=== PATIENT | male | born 1960 | race Caucasian/White ===

== ENCOUNTER 2022-07-14 15:24 | Inpatient (IN) | payer OTHER, SELFPAY ==
[2022-07-14 15:25] VITALS: BP 150/120; PULSE 81; RESP 18; TEMP 36.6; O2SAT 95; BMI 42.6
[2022-07-14 17:04] VITALS: BP 150/109; PULSE 90; RESP 20; O2SAT 94
--- NOTE | 2022-07-14 17:08 | ED.RN ---
SOB WITH EXERTION AND LAYING FLAT CROW EDEMA FROM FEET UP THROUGH HIPS AND ABD DISTENTION.
--- NOTE | 2022-07-14 17:24 | EKG12_ITS ---
Test Reason : SOB Blood Pressure : / mmHG Vent. Rate : 078 BPM Atrial Rate : 078 BPM P-R Int : 128 ms QRS Dur : 134 ms QT Int : 398 ms P-R-T Axes : 017 042 147 degrees QTc Int : 453 ms Sinus rhythm with occasional Premature ventricular complexes Non-specific intra-ventricular conduction block Nonspecific T wave abnormality Abnormal ECG Confirmed by HUSSEIN HUBBARD, SHERIF ([id number]), acquisitions editor ESSIE WEINSTEIN ([id number]) on 07/16/2022 9:52:40 AM Referred By: CANDELARIA Confirmed By:WALESKA SAVAGE MD
--- NOTE | 2022-07-14 17:36 | EDS_ITS ---
HPI History of Present Illness Chief Complaint: Shortness of Breath Narrative Narrative: 62-year-old male presenting with shortness of breath with exertion, orthopnea, lower extremity swelling. He states he has no medical problems. He has not seen a doctor in 20 years. He denies having chest pain. He has not had fever, chills, cough. PFSH PFSH Medical History no medical history Home Medications NK 07/14/22 [History Last Taken Unknown] Allergy/AdvReac Type Severity Reaction Status Date / Time No Known Allergies Allergy Verified 07/14/22 15:27 Family History (Updated 07/14/22 @ 20:[address] Aren Valderrama MD) Other COPD (chronic obstructive pulmonary disease) Heart disease Surgical History no surgical history Social History Smoking Status: Former smoker ROS ROS ED Constitutional Constitutional ED: Denies chills or fever(s) Eyes Eyes: Denies change in vision or diplopia ENT ENT ED: Denies rhinorrhea or sore throat Cardiovascular Cardiovascular: Reports orthopnea; Denies chest pain or palpitations Respiratory/Chest Respiratory/Chest: Reports dyspnea, dyspnea on exertion and orthopnea Gastrointestinal Gastrointestinal: Reports other Details: Abdominal swelling ; Denies nausea or vomiting Genitourinary Genitourinary ED: Denies dysuria Musculoskeletal Musculoskeletal: Denies arthralgias Integumentary Denies abscess or Abrasions Neurologic Neurologic: Denies headache(s) or paresthesias Psychiatric Psychiatric: Denies anxiety or depression EXAM Physical Exam Const Vital Signs: 07/14/22 15:25 07/14/22 17:04 07/14/22 17:06 Temperature 98 F Temperature Source Temporal Pulse Rate 81 90 Respiratory Rate 18 20 H Respiratory Effort Normal Respiratory Pattern Normal Blood Pressure 150/120 H 150/109 H Blood Pressure Mean 130 122 Pulse Ox 95 94 Oxygen Delivery Method Room Air Room Air 07/14/22 17:24 07/14/22 19:04 Temperature Temperature Source Pulse Rate 70 Respiratory Rate 16 Respiratory Effort Respiratory Pattern Blood Pressure 159/113 H Blood Pressure Mean 128 Pulse Ox 97 Oxygen Delivery Method Room Air Positive well nourished and obese Nutritional Appearance: obese HEENT Reports moist mucous membranes atraumatic Eyes PERRL and EOMs intact bilaterally Neck no lymphadenopathy Resp normal respiratory effort and clear to auscultation bilaterally Auscultation: Negative for rales, rhonchi or wheezes Cardio regular rate and regular rhythm GI non-tender Back/Spine no CVA tenderness Extremity General Extremety ED: Yes edema General Extremity: edema Neuro oriented x3 and CN's II-XII intact bilaterally Sensorium / Orientation: alert Motor Exam: strength 5/5 throughout Psych mental status grossly normal Skin no wounds MDM MDM MDM Narrative Medical decision making narrative: 62-year-old male with shortness of breath, increased abdominal girth, lower extremity edema. Presentation is consistent with CHF. He does not have any chest pain. Blood work was obtained and his CBC is unremarkable. Renal function and electrolytes also unremarkable. High- sensitivity troponin 73. BNP 896.0. Chest x-ray on my interpretation consistent with CHF. EKG sinus rhythm at 78 bpm with PVCs. Patient was given 40 mg Lasix IV. I discussed with the hospitalist for admission. Impression: 1. New onset CHF Lab Data Labs: Laboratory Results - last 24 hr 07/14/22 07/14/22 07/14/22 17:15 17:15 17:15 WBC 9.1 RBC 4.99 Hgb 15.4 Hct 48.8 MCV 97.8 H MCH 30.9 MCHC 31.6 L RDW Std Deviation 50.2 H RDW Coeff of Paz 14.0 Plt Count 238 MPV 11.7 Immature Gran % (Auto) 0.200 Neut % (Auto) 62.5 Lymph % (Auto) 24.4 [place] % (Auto) 11.4 H Eos % (Auto) 1.1 Baso % (Auto) 0.4 Absolute Neuts (auto) 5.7 Absolute Lymphs (auto) 2.21 Nucleated RBC % 0 Sodium 142 Potassium 4.2 Chloride 109 H Carbon Dioxide 28.0 Anion Gap 5 BUN 22 H Creatinine 1.28 Estim Creat Clear Calc 62.58 Est GFR (MDRD) Af Amer 73 Est GFR (MDRD) Non-Af 61 BUN/Creatinine Ratio 17.2 Glucose 87 Calcium 9.8 Troponin I High Sens 73 B-Natriuretic Peptide 896.0 H Radiography Diagnostic Testing: Clinical Impression(s) from Imaging Studies Chest X-Ray 07/14/22 17:40 IMPRESSION: Lower lung edema or infiltrates. Cardiac enlargement. Electronically Signed: Steven Meek MD at 19:26 EDT , Discharge Plan Triage Chief Complaint: Shortness of Breath Other Complaint: Edema ED Provider: Marques Moise Dx/Rx/DC Orders Primary Care Provider: Care Physician,No Primary
--- NOTE | 2022-07-14 17:40 | RAD_ITS ---
STUDY: X-RAY CHEST REASON FOR EXAM: Male, 62 years old. Chest pain TECHNIQUE: Single AP portable view of the chest. COMPARISON: None. FINDINGS: There are monitoring devices. There are mild lower lung increased opacities. There is no demonstrated pleural abnormality. There is moderate cardiac enlargement. Normal mediastinum and jonas. Normal visualized pulmonary arteries. Normal visualized aortic arch and descending thoracic aorta. There are degenerative changes of the visualized thoracic spine. Normal visualized ribs, clavicles, and shoulders. There is no demonstrated abnormality of the visualized soft tissue structures of the upper abdomen. RAD/Chest 1 View (Portable) IMPRESSION: Lower lung edema or infiltrates. Cardiac enlargement. Electronically Signed: Steven Meek MD at 19:26 EDT ,
[2022-07-14] MEDS: Aspirin 81 MG TAB.CHEW 324 MG PO (17:46)
[2022-07-14 17:49] LABS: Absolute Lymphocyte Count 2.21 X10^3/uL (0.83-4.51); Absolute Neutrophil Count 5.7 X10^3/uL (2.0-7.7); Basophil# 0.04 X10^3/uL; Basophil% 0.4 % (0-1); Eosinophils% 1.1 % (0-5); Hematocrit 48.8 % (40-54); Hemoglobin 15.4 g/dL (13.0-16.5); Lymphocyte # 2.21 X10^3/ul (0.83-4.51); Lymphocyte % 24.4 % (19-41); Mean Corp Hgb Conc 31.6 g/dL (32-36); Mean Corpuscular Hgb 30.9 pg (27.0-32.0); Mean Corpuscular Volume 97.8 fL (80-94); Mean Platelet Vol. 11.7 fl (6.2-12.0); Monocyte# 1.03 X10^3/uL; Monocyte% 11.4 % (0-10); NRBC Flagged by Analyzer 0 % (0-5); Neutrophil # 5.67 X10^3/uL (2.7-7.7); Neutrophil % 62.5 % (47-70); Platelet Count 238 K/mm3 (150-450); RBC Distribution Width SD 50.2 fl (35.1-43.9); Red Blood Count 4.99 M/mm3 (4.6-6.2); White Blood Count 9.1 K/mm3 (4.4-11.0)
[2022-07-14 18:08] LABS: Anion Gap 5 (5-15); BUN 22 mg/dL (7-18); BUN/Creat Ratio 17.2 RATIO (10-20); Calcium,Total 9.8 mg/dL (8.5-10.1); Chloride 109 mmol/L (98-107); Creatinine, Serum 1.28 mg/dL (0.70-1.30); EST Glomerular Filtration Rate 61 mL/min (>60); Est Glom Filt Rate - Afr Amer 73 mL/min (>60); Estimated Creatinine Clearance 62.58 ml/min; Glucose 87 mg/dL (74-106); Potassium 4.2 mmol/L (3.5-5.1); Sodium Level 142 mmol/L (136-145); Troponin-I HS 73 pg/mL (3.0-78.0)
[2022-07-14 19:04] VITALS: BP 159/113; PULSE 70; RESP 16; O2SAT 97
--- NOTE | 2022-07-14 19:41 | PCM.HP.STD ---
HPI - General General Date of Admission: 07/14/22 Date of Service: 07/14/22 Chief Complaint: Dyspnea on exertion HPI Narrative SCARLETT LANDRY, is a 62 M with a significant history of previous alcoholism; former tobacco use and who saw a doctor bout 20 years ago presenting to the emergency department with 2 and half week history of progressively worsening dyspnea on exertion. Associated with symptom is orthopnea; paroxysmal nocturnal dyspnea; bilateral lower extremity swelling and lower abdominal swelling. Also he reports fatigue and decreased appetite. His legs have been so much swelling that he had trouble putting his work boots on. 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 [facility] Medical History no medical history no medical history Home Medications NK 07/14/22 [History Last Taken Unknown] Allergy/AdvReac Type Severity Reaction Status Date / Time No Known Allergies Allergy Verified 07/14/22 15:27 Family History (Updated 07/14/22 @ 20:[address] Aren Valderrama MD) Other COPD (chronic obstructive pulmonary disease) Heart disease Surgical History no surgical history no surgical history Social History Smoking Status: Former smoker ROS ROS Narrative Pertinent positives and pertinent negatives as noted in HPI. All other systems were reviewed and are negative Vital Signs Vital Signs Vital Signs: 07/14/22 15:25 07/14/22 17:04 07/14/22 17:06 Temperature 98 F Temperature Source Temporal Pulse Rate 81 90 Respiratory Rate 18 20 H Respiratory Effort Normal Respiratory Pattern Normal Blood Pressure 150/120 H 150/109 H Blood Pressure Mean 130 122 Pulse Ox 95 94 Oxygen Delivery Method Room Air Room Air 07/14/22 17:24 07/14/22 19:04 Temperature Temperature Source Pulse Rate 70 Respiratory Rate 16 Respiratory Effort Respiratory Pattern Blood Pressure 159/113 H Blood Pressure Mean 128 Pulse Ox 97 Oxygen Delivery Method Room Air Weight Weight: 134.745 kg Body Mass Index (BMI) 42.6 Physical Exam Narrative Physical exam: General: Well-nourished, well-developed. Head: Normocephalic, atraumatic, no tenderness Eyes: Vision is grossly intact. EOMI ENT, no trauma, moist mucous membranes, no rhinorrhea Neck: Nontender, No thyromegaly. CVS: Regular rate and rhythm. S1-S2 present. No murmur, gallop or rub. Respiratory : Diminished; bilaterally, chest wall nontender Abdomen: Soft, nontender, nondistended, normal bowel sounds. Edema of lower abdomen : Deferred Back: Nontender, no CVA tenderness, no midline spinal tenderness, deformities, step-offs Extremities: Nontender full range of motion, no trauma. Bilateral lower extremity edema 3+ Skin: Normal color, no trauma, abrasions Neuro: Alert, oriented, cranial nerves II through XII grossly intact. Psychiatry: Normal mood. Normal affect. Not depressed. Not anxious. Results Lab / Micro Data Result Diagrams: 07/14/22 17:15 07/14/22 17:15 Labs: Laboratory Results - last 24 hr 07/14/22 17:15: WBC 9.1, RBC 4.99, Hgb 15.4, Hct 48.8, MCV 97.8 H, MCH 30.9, MCHC 31.6 L, RDW Std Deviation 50.2 H, RDW Coeff of Paz 14.0, Plt Count 238, MPV 11.7, Immature Gran % (Auto) 0.200, Neut % (Auto) 62.5, Lymph % (Auto) 24.4, [place] % (Auto) 11.4 H, Eos % (Auto) 1.1, Baso % (Auto) 0.4, Absolute Neuts (auto) 5.7, Absolute Lymphs (auto) 2.21, Nucleated RBC % 0 07/14/22 17:15: Sodium 142, Potassium 4.2, Chloride 109 H, Carbon Dioxide 28.0, Anion Gap 5, BUN 22 H, Creatinine 1.28, Estim Creat Clear Calc 62.58, Est GFR (MDRD) Af Amer 73, Est GFR (MDRD) Non-Af 61, BUN/Creatinine Ratio 17.2, Glucose 87, Calcium 9.8, Troponin I High Sens 73 07/14/22 17:15: B-Natriuretic Peptide 896.0 H Radiology Impression Chest X-Ray 07/14/22 17:40 IMPRESSION: Lower lung edema or infiltrates. Cardiac enlargement. Electronically Signed: Steven Meek MD at 19:26 EDT Reading Location ID and State: [facility] / [place] , Service support , Assessment & Plan Assessment/Plan (1) Congestive heart failure (CHF): (2) Elevated blood pressure reading: (3) Morbid obesity due to excess calories: PLAN: Plan Acute heart failure New onset Place on monitored bed on PCU Weight on admission to the floor; and then daily Strict I&O's Chest x-ray was visualized and independently interpreted I agree with radiology interpretation of cardiomegaly and bilateral pulmonary infiltrates. EKG independently reviewed confirms sinus rhythm with PVCs Emergency department labs reviewed showed elevated BNP of 896 Discussed with ED doctor will give Lasix 40 mg IV push. Lasix 40 mg twice daily ordered. Supplement potassium. Transthoracic echocardiogram to evaluate left ventricular wall motion and systolic function. Monitor electrolytes and renal function; and liver biochemistry. Check a TSH and lipid panel. Trend blood pressure Cruz wrap to bilateral lower extremities; elevate bilateral lower extremity. Fluid restriction of 1500 mls daily Cardiac diet Elevated blood pressure without diagnosis of hypertension Patient blood pressure is elevated. However patient has not seen a doctor within 20 years. Will start patient on low-dose lisinopril. Will trend blood pressures. Morbid Obesity : BMI:42.6 kg/m?. Complicates care. Lifestyle modification recommended. Charges/Coding Visit Charges Inpatient E&M: 95992 Init Hosp L3
[2022-07-14 19:55] VITALS: BP 160/90; PULSE 77; RESP 18; TEMP 36.8; O2SAT 98
[2022-07-14] MEDS: Furosemide 40 MG/4 ML Vial IV (19:59)
--- NOTE | 2022-07-14 21:37 | ECHOCS_ITS ---
Reason For Study: CHF Procedure This was a 2D Doppler, Color Flow transthoracic echocardiogram. The study was technically difficult. Contrast injection was performed. Exam performed portable in patient room. Left Ventricle Mildly dilated left ventricle. The estimated ejection fraction is 15-20 %. There is severe global hypokinesis of the left ventricle. Right Ventricle Normal RV size. Normal systolic function. Atria The left atrium is mildly enlarged. The right atrium is mildly enlarged. No doppler evidence for ASD. Mitral Valve There is no mitral valve stenosis. Mild (1+) mitral valve insufficiency. Tricuspid Valve There is no tricuspid stenosis. Trivial tricuspid valve insufficiency. Pulmonary artery systolic pressure is 45 mmHg. Aortic Valve Trisinus/trileaflet aortic valve. There is no aortic stenosis. No aortic valve insufficiency. Pulmonic Valve There is no pulmonic valvular stenosis. No pulmonic valve insufficiency. Great Vessels Normal aortic root. Pericardium/Pleural No pericardial effusion. Medication Diluted definity 2ml given slow IV push to enhance endocardial definition. MMode/2D Measurements & Calculations LVIDd: 6.3 cm IVSd: 0.86 cm Ao root diam: 4.0 cm LVIDs: 5.7 cm LVPWd: 1.3 cm LA dimension: 4.8 cm RVDd: 5.1 cm FS: 9.5 % LAV(MOD-bp): 120.9 ml LVAd ap4: 54.5 cm2 SV(MOD-sp4): 56.8 ml LAV(MOD-bp) Indexed: 49.3 ml/m2 LVLd ap4: 10.1 cm LAV(MOD-sp2): 111.7 ml EDV(MOD-sp4): 242.5 ml LAV(MOD-sp4): 112.2 ml EDV(sp4-el): 248.8 ml LVAs ap4: 44.9 cm2 LVLs ap4: 9.2 cm ESV(MOD-sp4): 185.6 ml ESV(sp4-el): 185.2 ml EF(MOD-sp4): 23.4 % EF(sp4-el): 25.6 % SV(sp4-el): 63.6 ml LA A4 area: 32.6 cm2 RA A4 area: 27.0 cm2 Time Measurements MV dec time: 0.19 sec Doppler Measurements & Calculations MV E max joseph: 98.0 cm/sec Lat Peak E' Joseph: 13.7 cm/sec Med Peak E' Joseph: 6.6 cm/sec MV A max joseph: 34.1 cm/sec E/E' lat: 7.2 E/E' med: 14.9 MV E/A: 2.9 MV V2 max: 109.0 cm/sec MV P1/2t max joseph: 111.3 cm/sec Ao V2 max: 96.9 cm/sec MV max P.8 mmHg MV P1/2t: 82.3 msec Ao max P.8 mmHg MV V2 mean: 51.3 cm/sec MV mean P.4 mmHg MV dec slope: 396.4 cm/sec2 MV V2 VTI: 26.2 cm MVA(P1/2t): 2.7 cm2 LV V1 max: 93.0 cm/sec PA V2 max: 66.5 cm/sec LV V1 max P.5 mmHg PI dec slope: 381.6 cm/sec2 TR max joseph: 307.8 cm/sec TR max P.9 mmHg ECHO/Echo Complete W/ Contrast Interpretation Summary The estimated ejection fraction is 15-20 %. There is severe global hypokinesis of the left ventricle. The left atrium is mildly enlarged. The right atrium is mildly enlarged. Mild (1+) mitral valve insufficiency. Ordering Physician: Aren Valderrama Referring Physician: Katie PCP Performed By: Emerson Sow RCS
[2022-07-14 21:39] VITALS: BMI 41.9
[2022-07-14 21:44] VITALS: BP 137/92; PULSE 75; RESP 18; TEMP 36.4; O2SAT 98
[2022-07-14] MEDS: Enoxaparin 40 MG/0.4 ML Syringe SC (21:57)
[2022-07-14] MEDS: Lisinopril 5 MG Tablet PO (21:57)
[2022-07-14 23:10] LABS: Troponin-I HS 70 pg/mL (3.0-78.0)
[2022-07-15 01:30] LABS: Troponin-I HS 70 pg/mL (3.0-78.0)
[2022-07-15 03:45] VITALS: BP 137/95; PULSE 69; RESP 20; TEMP 36.6; O2SAT 97
[2022-07-15 05:01] VITALS: BMI 41.9
[2022-07-15 06:18] LABS: Absolute Lymphocyte Count 1.94 X10^3/uL (0.83-4.51); Absolute Neutrophil Count 5.4 X10^3/uL (2.0-7.7); Basophil# 0.03 X10^3/uL; Basophil% 0.4 % (0-1); Eosinophil# 0.16 X10^3/uL; Eosinophils% 1.9 % (0-5); Hematocrit 45.4 % (40-54); Hemoglobin 13.9 g/dL (13.0-16.5); Lymphocyte # 1.94 X10^3/ul (0.83-4.51); Lymphocyte % 22.7 % (19-41); Mean Corp Hgb Conc 30.6 g/dL (32-36); Mean Corpuscular Hgb 30.2 pg (27.0-32.0); Mean Corpuscular Volume 98.7 fL (80-94); Mean Platelet Vol. 11.7 fl (6.2-12.0); Monocyte# 1.03 X10^3/uL; Monocyte% 12.1 % (0-10); NRBC Flagged by Analyzer 0 % (0-5); Neutrophil # 5.35 X10^3/uL (2.7-7.7); Neutrophil % 62.5 % (47-70); Platelet Count 214 K/mm3 (150-450); White Blood Count 8.5 K/mm3 (4.4-11.0)
[2022-07-15 07:22] LABS: AST(SGOT) 33 U/L (15-37); Alanine Aminotransfer ALT/SGPT 34 U/L (16-61); Albumin, Serum 3.3 g/dL (3.2-5.0); Alkaline Phosphatase 66 U/L (45-117); Anion Gap 3 (5-15); BUN 20 mg/dL (7-18); BUN/Creat Ratio 15.9 RATIO (10-20); Calcium,Total 8.9 mg/dL (8.5-10.1); Chloride 108 mmol/L (98-107); Cholesterol 88 mg/dL (200); Creatinine, Serum 1.26 mg/dL (0.70-1.30); EST Glomerular Filtration Rate 62 mL/min (>60); Est Glom Filt Rate - Afr Amer 75 mL/min (>60); Estimated Creatinine Clearance 63.57 ml/min; Globulin 3.3 g/dL (2.2-4.2); Glucose 90 mg/dL (74-106); High Density Lipoprotein 27 mg/dL; Potassium 3.8 mmol/L (3.5-5.1); Protein, Total 6.6 g/dL (6.4-8.2); Sodium Level 141 mmol/L (136-145); Thyroid Stim Hormone (TSH) 2.51 uIU/mL (0.358-3.74); Triglycerides 65 mg/dL; Very Low Density Lipoprotein 13 mg/dL (5-40)
--- NOTE | 2022-07-15 07:53 | PN.HOSP_ITS ---
Reason for Visit Reason for Visit: Diagnoses Morbid (severe) obesity due to excess calories (07/14/22) Heart failure, unspecified (07/14/22) Elevated blood-pressure reading, without diagnosis of hypertension (07/14/22) Subjective Subjective Patient is a 62-year-old gentleman with no chronic medical problems presented with 2-week history of progressive shortness of breath with bilateral pedal edema and assessment of new onset congestive heart failure made admitted to a monitored bed for further management Objective Data Objective Data Vital Signs: Vital Signs Temp Pulse Resp BP Pulse Ox O2 Del Method 97.8 F 69 20 H 137/95 H 97 Room Air 07/15/22 03:45 07/15/22 03:45 07/15/22 03:45 07/15/22 03:45 07/15/22 03:45 07/15/22 03:45 Oxygen Delivery Method Room Air Weight: 132.5 kg Body Mass Index (BMI) 41.9 Lab / Micro Data Result Diagrams: 07/15/22 05:42 07/15/22 05:42 Labs: Laboratory Results - last 24 hr 07/14/22 17:15: WBC 9.1, RBC 4.99, Hgb 15.4, Hct 48.8, MCV 97.8 H, MCH 30.9, MCHC 31.6 L, RDW Std Deviation 50.2 H, RDW Coeff of Paz 14.0, Plt Count 238, MPV 11.7, Immature Gran % (Auto) 0.200, Neut % (Auto) 62.5, Lymph % (Auto) 24.4, [place] % (Auto) 11.4 H, Eos % (Auto) 1.1, Baso % (Auto) 0.4, Absolute Neuts (auto) 5.7, Absolute Lymphs (auto) 2.21, Nucleated RBC % 0 07/14/22 17:15: Sodium 142, Potassium 4.2, Chloride 109 H, Carbon Dioxide 28.0, Anion Gap 5, BUN 22 H, Creatinine 1.28, Estim Creat Clear Calc 62.58, Est GFR (MDRD) Af Amer 73, Est GFR (MDRD) Non-Af 61, BUN/Creatinine Ratio 17.2, Glucose 87, Calcium 9.8, Troponin I High Sens 73 07/14/22 17:15: B-Natriuretic Peptide 896.0 H 07/14/22 22:41: Troponin I High Sens 70 07/15/22 00:43: Troponin I High Sens 70 07/15/22 05:42: WBC 8.5, RBC 4.60, Hgb 13.9, Hct 45.4, MCV 98.7 H, MCH 30.2, MCHC 30.6 L, RDW Std Deviation 51.0 H, RDW Coeff of Paz 14.0, Plt Count 214, MPV 11.7, Immature Gran % (Auto) 0.400, Neut % (Auto) 62.5, Lymph % (Auto) 22.7, [place] % (Auto) 12.1 H, Eos % (Auto) 1.9, Baso % (Auto) 0.4, Absolute Neuts (auto) 5.4, Absolute Lymphs (auto) 1.94, Nucleated RBC % 0 07/15/22 05:42: Sodium 141, Potassium 3.8, Chloride 108 H, Carbon Dioxide 30.0, Anion Gap 3 L, BUN 20 H, Creatinine 1.26, Estim Creat Clear Calc 63.57, Est GFR (MDRD) Af Amer 75, Est GFR (MDRD) Non-Af 62, BUN/Creatinine Ratio 15.9, Glucose 90, Calcium 8.9, Total Bilirubin 1.20 H, AST 33, ALT 34, Alkaline Phosphatase 66, Total Protein 6.6, Albumin 3.3, Globulin 3.3, Albumin/Globulin Ratio 1.0, Triglycerides 65, Cholesterol 88, LDL Cholesterol 48, VLDL Cholesterol 13, HDL Cholesterol 27 L, TSH 2.51 Radiography Diagnostic Testing: Radiology Impression Chest X-Ray 07/14/22 17:40 IMPRESSION: Lower lung edema or infiltrates. Cardiac enlargement. Electronically Signed: Steven Meek MD at 19:26 EDT , Physical Exam Narrative GENERAL: cooperative HEENT: Atraumatic; normocephalic EYES; Anicteric, Normal Conjunctiva NECK; supple, normal thyroid, RESPIRATORY: Diminished to auscultation CARDIOVASCULAR: Regular S1 S2, GI: soft, normoactive bowel sounds, : No Renal angle tenderness; EXTREMITIES: edema, no clubbing, MUSCULOSKELETAL: no muscle wasting NEURO: Awake; no lateralizing signs. SKIN: No Rash PSYCH; Flat affect Assessment & Plan Assessment/Plan (1) Congestive heart failure (CHF): (2) Elevated blood pressure reading: (3) Morbid obesity due to excess calories: PLAN: Plan Patient is a 62-year-old gentleman with no chronic medical problems presented with 2-week history of progressive shortness of breath with bilateral pedal edema and assessment of new onset congestive heart failure made admitted to a monitored bed for further management 1. New onset acute congestive heart failure (unspecified at this point). 2D echo has been ordered to assess EF. Patient placed on strict input and output, daily weight, IV diuretics as well as fluid restriction in addition to low-sodium diet. Patient response to therapy being monitored with daily weights as well as input and output 2. Elevated blood pressure ? Patient does not have history of hypertension given his presentation patient was started on lisinopril 3. Class III obesity with BMI of 42 ? Weight loss advised 4. DVT prophylaxis - On enoxaparin Time spent in the patient's overall evaluation,decision-making process, review of diagnostic data, adjustment of management, discussion with other providers, nursing nursing and ancillary staff involved in patient's care documentation, 55 Minutes Charges/Coding Visit Charges Inpatient E&M: 89132 [facility] L3
[2022-07-15 08:38] VITALS: O2SAT 94
[2022-07-15] MEDS: Enoxaparin 40 MG/0.4 ML Syringe SC ×2 (09:12→21:41)
[2022-07-15] MEDS: 0.9% Saline Lock 10 ML Syringe IV ×3 (09:12→21:48)
[2022-07-15] MEDS: Lisinopril 5 MG Tablet PO (09:12)
[2022-07-15] MEDS: Potassium Chloride Oral Tablet 20 MEQ PO (09:12)
[2022-07-15] MEDS: Furosemide 40 MG/4 ML Vial IV ×3 (09:12→21:41)
[2022-07-15 09:45] VITALS: BP 146/101; PULSE 76; RESP 18; TEMP 36.6; O2SAT 100
--- NOTE | 2022-07-15 11:15 | CASEMGMT ---
RN GERARDO Face to Face with patient for initial transition planning/care coordination assessment. RN CM introduced self and role at [facility]. Patient lying in bed, alert and oriented, ex at bedside. Patient willing to participate in assessment and is able to answer all questions appropriately. Care providers, pharmacy, and demographics verified. Patient wishes to discharge home, denies need for home health at this time. Patient states he has no further needs or concerns at this time. CM to follow for discharge planning needs that may arise. PCP: No PCP, PCP list and [facility] info provided to patient. Specialists: none Preferred Pharmacy: [facility] Insurance: None Prescription Benefit: none Living Will/HPOA: none LNOK: ex Living Arrangements: Patient lives with ex in a mobile home with 2 steps with railing to enter. Patient states he is independent at home. Transportation: self, ex DME/HHC: Patient has access to walker, wheelchair, and shower chair, at home. No previous HHC or SNF Disposition Plan: Patient to discharge home with family support and follow-up plans in place. Ashlee MEYER, RN, CM
[2022-07-15 15:45] VITALS: BP 131/103; PULSE 72; RESP 18; TEMP 36.4; O2SAT 99
[2022-07-15 21:35] VITALS: BP 131/95; PULSE 70; RESP 18; TEMP 36.3; O2SAT 96
[2022-07-16 03:10] VITALS: BP 132/100; PULSE 70; RESP 18; TEMP 35.9; O2SAT 97
[2022-07-16 05:16] LABS: Absolute Lymphocyte Count 2.05 X10^3/uL (0.83-4.51); Absolute Neutrophil Count 5.3 X10^3/uL (2.0-7.7); Basophil# 0.04 X10^3/uL; Basophil% 0.5 % (0-1); Eosinophil# 0.18 X10^3/uL; Eosinophils% 2.1 % (0-5); Hematocrit 46.8 % (40-54); Hemoglobin 14.4 g/dL (13.0-16.5); Lymphocyte # 2.05 X10^3/ul (0.83-4.51); Lymphocyte % 23.7 % (19-41); Mean Corp Hgb Conc 30.8 g/dL (32-36); Mean Corpuscular Hgb 29.9 pg (27.0-32.0); Mean Corpuscular Volume 97.3 fL (80-94); Mean Platelet Vol. 11.3 fl (6.2-12.0); Monocyte# 1.09 X10^3/uL; Monocyte% 12.6 % (0-10); NRBC Flagged by Analyzer 0 % (0-5); Neutrophil # 5.28 X10^3/uL (2.7-7.7); Neutrophil % 60.9 % (47-70); Platelet Count 215 K/mm3 (150-450); RBC Distribution Width CV 13.7 % (11.6-14.6); RBC Distribution Width SD 49.5 fl (35.1-43.9); Red Blood Count 4.81 M/mm3 (4.6-6.2); White Blood Count 8.7 K/mm3 (4.4-11.0)
[2022-07-16] MEDS: Furosemide 40 MG/4 ML Vial IV ×2 (05:28→13:35)
[2022-07-16] MEDS: 0.9% Saline Lock 10 ML Syringe IV (05:28)
[2022-07-16 05:42] LABS: Anion Gap 4 (5-15); BUN 25 mg/dL (7-18); BUN/Creat Ratio 17.6 RATIO (10-20); Calcium,Total 9.5 mg/dL (8.5-10.1); Chloride 105 mmol/L (98-107); Creatinine, Serum 1.42 mg/dL (0.70-1.30); EST Glomerular Filtration Rate 54 mL/min (>60); Est Glom Filt Rate - Afr Amer 65 mL/min (>60); Estimated Creatinine Clearance 56.41 ml/min; Glucose 90 mg/dL (74-106); Magnesium 2.2 mg/dL (1.6-2.6); Phosphorus 3.8 mg/dL (2.5-4.9); Potassium 3.4 mmol/L (3.5-5.1); Sodium Level 140 mmol/L (136-145)
[2022-07-16 06:00] VITALS: BMI 39.6
--- NOTE | 2022-07-16 07:40 | PN.HOSP_ITS ---
Reason for Visit Reason for Visit: Diagnoses Morbid (severe) obesity due to excess calories (07/14/22) Heart failure, unspecified (07/14/22) Elevated blood-pressure reading, without diagnosis of hypertension (07/14/22) Subjective Subjective Patient 2D echo demonstrated EF of 15 to 20%. Consult subsequently placed to cardiology Objective Data Objective Data Vital Signs: Vital Signs Temp Pulse Resp BP Pulse Ox O2 Del Method 96.7 F L 70 18 132/100 H 97 Room Air 07/16/22 03:10 07/16/22 03:10 07/16/22 03:10 07/16/22 03:10 07/16/22 03:10 07/16/22 03:10 Oxygen Delivery Method Room Air Weight: 125.3 kg Body Mass Index (BMI) 39.6 Intake & Output: Intake and Output for Last 24 Hours 07/14/22 07/15/22 07/16/22 23:59 23:59 23:59 Intake Total 240 / 240 Balance 240 / 240 Lab / Micro Data Result Diagrams: 07/16/22 04:53 07/16/22 04:53 Labs: Laboratory Results - last 24 hr 07/16/22 04:53: WBC 8.7, RBC 4.81, Hgb 14.4, Hct 46.8, MCV 97.3 H, MCH 29.9, MCHC 30.8 L, RDW Std Deviation 49.5 H, RDW Coeff of Paz 13.7, Plt Count 215, MPV 11.3, Immature Gran % (Auto) 0.200, Neut % (Auto) 60.9, Lymph % (Auto) 23.7, [place] % (Auto) 12.6 H, Eos % (Auto) 2.1, Baso % (Auto) 0.5, Absolute Neuts (auto) 5.3, Absolute Lymphs (auto) 2.05, Nucleated RBC % 0 07/16/22 04:53: Sodium 140, Potassium 3.4 L, Chloride 105, Carbon Dioxide 31.0, Anion Gap 4 L, BUN 25 H, Creatinine 1.42 H, Estim Creat Clear Calc 56.41, Est GFR (MDRD) Af Amer 65, Est GFR (MDRD) Non-Af 54 L, BUN/Creatinine Ratio 17.6, Glucose 90, Calcium 9.5, Phosphorus 3.8, Magnesium 2.2 Radiography Diagnostic Testing: Radiology Impression Echocardiogram 07/14/22 21:37 Interpretation Summary The estimated ejection fraction is 15-20 %. There is severe global hypokinesis of the left ventricle. The left atrium is mildly enlarged. The right atrium is mildly enlarged. Mild (1+) mitral valve insufficiency. Ordering Physician: Aren Valderrama Referring Physician: Katie PCP Performed By: Emerson Sow RCS Physical Exam Narrative GENERAL: cooperative HEENT: Atraumatic; normocephalic EYES; Anicteric, Normal Conjunctiva NECK; supple, normal thyroid, RESPIRATORY: Diminished to auscultation CARDIOVASCULAR: Regular S1 S2, GI: soft, normoactive bowel sounds, : No Renal angle tenderness; EXTREMITIES: edema, no clubbing, MUSCULOSKELETAL: no muscle wasting NEURO: Awake; no lateralizing signs. SKIN: No Rash PSYCH; Flat affect Assessment & Plan Assessment/Plan (1) Congestive heart failure (CHF): (2) Elevated blood pressure reading: (3) Morbid obesity due to excess calories: PLAN: Plan Patient is a 62-year-old gentleman with no chronic medical problems presented with 2-week history of progressive shortness of breath with bilateral pedal edema and assessment of new onset congestive heart failure made admitted to a monitored bed for further management 1. Acute congestive heart failure with decreased ejection fraction 2D echo has been ordered to assess EF. Patient placed on strict input and output, daily weight, IV diuretics as well as fluid restriction in addition to low-sodium diet. Patient response to therapy being monitored with daily weights as well as input and output ?07/16/2022. 2D echo obtained on 07/15/2022 is as below. The estimated ejection fraction is 15-20 %. There is severe global hypokinesis of the left ventricle. The left atrium is mildly enlarged. The right atrium is mildly enlarged. Mild (1+) mitral valve insufficiency. ?Based on patient's significant cardiomyopathy consultation was placed to cardiology to evaluate for possible coronary artery disease. Case was discussed with Dr. Miller with cardiology 2. Elevated blood pressure ? Patient does not have history of hypertension given his presentation patient was started on lisinopril 3. Class III obesity with BMI of 42 ? Weight loss advised 4. Hypokalemia -Corrected per protocol, repeat potassium levels ordered for monitoring 5. Impaired kidney function ? Following patient diuresis adjusted patient Lasix dose 6. DVT prophylaxis - On enoxaparin Time spent in the patient's overall evaluation,decision-making process, review of diagnostic data, adjustment of management, discussion with other providers, nursing nursing and ancillary staff involved in patient's care documentation, 55 Minutes Charges/Coding Visit Charges Inpatient E&M: 52243 [facility] L3
[2022-07-16] MEDS: Lisinopril 5 MG Tablet PO (07:56)
[2022-07-16] MEDS: Enoxaparin 40 MG/0.4 ML Syringe SC (07:56)
[2022-07-16] MEDS: Potassium Chloride Oral Tablet 20 MEQ PO (07:56)
[2022-07-16 08:00] VITALS: O2SAT 97
[2022-07-16 09:10] VITALS: BP 132/90; PULSE 70; RESP 18; TEMP 36.4; O2SAT 98
--- NOTE | 2022-07-16 10:07 | CON.PCM.CA_ITS ---
Assessment & Plan Assessment/Plan (1) Congestive heart failure (CHF): QUALIFIERS: Heart failure type: systolic Heart failure chronicity: acute Qualified Code(s): I50.21 - Acute systolic (congestive) heart failure PLAN: Functional class III. Agree with diuresis. Titrate EMIL inhibitors upward as tolerated. Start on SGLT2 inhibitor. Introduce low-dose beta-blockers. 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 However will need to rule out coronary artery disease. Will consider coronary angiography versus stress test as outpatient. (2) Hypertension: PLAN: Increase EMIL inhibitor's as tolerated. Introduce low-dose beta-blockers. (3) History of ETOH abuse: PLAN: Abstinent for the last 1 month. Encouraged to continue to stay abstinent. HPI Consult Data Date of Consult: 07/16/22 HPI Narrative Reason for Consultation: Congestive heart failure HPI Narrative: The patient presented to the hospital with complaints of a 2-week history of increasing shortness of breath and ankle edema. He also complained of increasing fatigue. No chest pain. An echocardiogram was done for the patient which showed ejection fraction of 15 to 20% with global hypokinesis. Patient denies any previous history of heart disease. He has a history of EtOH abuse. Per him, he quit drinking about a month ago. PENDING SALE TO [facility] Medical History no medical history Home Medications NK 07/14/22 [History Last Taken Unknown] Allergy/AdvReac Type Severity Reaction Status Date / Time No Known Allergies Allergy Verified 07/14/22 15:27 Family History (Updated 07/14/22 @ 20:[address] Aren Valderrama MD) Other COPD (chronic obstructive pulmonary disease) Heart disease Surgical History no surgical history Social History Smoking Status: Former smoker Physical Exam Narrative Comfortable. No apparent distress. Positive jugular venous distention. Heart sounds 1 and 2 noted. Positive S3. No murmurs. Chest examination shows bibasilar crepitations. Abdomen soft. Alert oriented x3. 3+ bilateral lower extremity edema is noted. Risk Stratification Risk Stratification Applicable: No Objective Data Vital Signs: Vital Signs Temp Pulse Resp BP Pulse Ox O2 Del Method 97.5 F L 70 18 132/90 H 98 Room Air 07/16/22 09:10 07/16/22 09:10 07/16/22 09:10 07/16/22 09:10 07/16/22 09:10 07/16/22 09:10 Oxygen Delivery Method Room Air Weight: 276 lb 3.827 oz Body Mass Index (BMI) 39.6 Intake & Output: Intake and Output for Last 24 Hours 07/14/22 07/15/22 07/16/22 23:59 23:59 23:59 Intake Total 240 / 240 Balance 240 / 240 Lab / Micro Data Result Diagrams: 07/16/22 04:53 07/16/22 04:53 Labs: Laboratory Results - last 24 hr 07/16/22 04:53: WBC 8.7, RBC 4.81, Hgb 14.4, Hct 46.8, MCV 97.3 H, MCH 29.9, MCHC 30.8 L, RDW Std Deviation 49.5 H, RDW Coeff of Paz 13.7, Plt Count 215, MPV 11.3, Immature Gran % (Auto) 0.200, Neut % (Auto) 60.9, Lymph % (Auto) 23.7, [place] % (Auto) 12.6 H, Eos % (Auto) 2.1, Baso % (Auto) 0.5, Absolute Neuts (auto) 5.3, Absolute Lymphs (auto) 2.05, Nucleated RBC % 0 07/16/22 04:53: Sodium 140, Potassium 3.4 L, Chloride 105, Carbon Dioxide 31.0, Anion Gap 4 L, BUN 25 H, Creatinine 1.42 H, Estim Creat Clear Calc 56.41, Est GFR (MDRD) Af Amer 65, Est GFR (MDRD) Non-Af 54 L, BUN/Creatinine Ratio 17.6, Glucose 90, Calcium 9.5, Phosphorus 3.8, Magnesium 2.2 Rhythm Strip Rhythm Strip: Sinus Rhythm Cardiology Labs/Tests 07/16/22 04:53: WBC 8.7, RBC 4.81, Hgb 14.4, Hct 46.8, MCV 97.3 H, MCH 29.9, MCHC 30.8 L, Plt Count 215, MPV 11.3, Immature Gran % (Auto) 0.200, Neut % (Auto) 60.9, Lymph % (Auto) 23.7, [place] % (Auto) 12.6 H, Eos % (Auto) 2.1, Baso % (Auto) 0.5, Absolute Neuts (auto) 5.3, Nucleated RBC % 0 07/16/22 04:53: Sodium 140, Potassium 3.4 L, Chloride 105, Carbon Dioxide 31.0, Anion Gap 4 L, BUN 25 H, Creatinine 1.42 H, Est GFR (MDRD) Af Amer 65, Est GFR (MDRD) Non-Af 54 L, BUN/Creatinine Ratio 17.6, Glucose 90, Calcium 9.5, Phosphorus 3.8, Magnesium 2.2 Rhythm: EKG: Normal sinus rhythm with nonspecific intraventricular conduction delay ECHO: Global hypokinesis of the left ventricle. Ejection fraction 15 to 20%. Mild mitral valve regurgitation. Stress Test: Cardiac Cath: PCI: CT Surgery: Holter monitor: EPS: PPM: CXR: Chest CT Scan: Radiography Diagnostic Testing: Radiology Impression Echocardiogram 07/14/22 21:37 Interpretation Summary The estimated ejection fraction is 15-20 %. There is severe global hypokinesis of the left ventricle. The left atrium is mildly enlarged. The right atrium is mildly enlarged. Mild (1+) mitral valve insufficiency. Ordering Physician: Aren Valderrama Referring Physician: Katie PCP Performed By: Emerson Sow RCS
[2022-07-16] MEDS: Carvedilol 3.125 MG TABLET PO (11:39)
[2022-07-16] MEDS: Empagliflozin 10 MG Tablet PO (11:39)
--- NOTE | 2022-07-16 13:59 | DS.PCM_ITS ---
Providers Date of Admission: 07/14/22 Date of Discharge: 07/16/22 Primary Care Physician: Katie Primary Care Phys Consultations 07/16/22 07:39 Consult: Cardiology Routine Consulting Provider: Tim Miller Reason for Consult: New Onset CHF EMERGENT Consult: No MD Notified: Yes Date Notified: 07/16/22 Time Notified: 07:39 Method of Notification: Verbal Reason For Visit: ACUTE HEART FAILURE Diagnosis Discharge Diagnosis (1) Congestive heart failure (CHF): Status: Acute Code(s): I50.9 - Heart failure, unspecified Qualifiers: Heart failure type: systolic Heart failure chronicity: acute Qualified Code(s): I50.21 - Acute systolic (congestive) heart failure (2) Elevated blood pressure reading: Status: Acute Code(s): R03.0 - Elevated blood-pressure reading, without diagnosis of hypertension (3) Morbid obesity due to excess calories: Status: Acute Code(s): E66.01 - Morbid (severe) obesity due to excess calories Plan Patient is a 62-year-old gentleman with no chronic medical problems presented with 2-week history of progressive shortness of breath with bilateral pedal edema and assessment of new onset congestive heart failure made admitted to a monitored bed for further management 1. Acute congestive heart failure with decreased ejection fraction 2D echo has been ordered to assess EF. Patient placed on strict input and output, daily weight, IV diuretics as well as fluid restriction in addition to low-sodium diet. Patient response to therapy being monitored with daily weights as well as input and output ?07/16/2022. 2D echo obtained on 07/15/2022 is as below. The estimated ejection fraction is 15-20 %. There is severe global hypokinesis of the left ventricle. The left atrium is mildly enlarged. The right atrium is m ildly enlarged. Mild (1+) mitral valve insufficiency. ?Based on patient's significant cardiomyopathy consultation was placed to cardiology to evaluate for possible coronary artery disease. Case was discussed with Dr. Miller with cardiology 2. Elevated blood pressure ? Patient does not have history of hypertension given his presentation patient was started on lisinopril 3. Class III obesity with BMI of 42 ? Weight loss advised 4. Hypokalemia -Corrected per protocol, repeat potassium levels ordered for monitoring 5. Impaired kidney function ? Following patient diuresis adjusted patient Lasix dose 6. DVT prophylaxis - On enoxaparin Time spent in the patient's overall evaluation,decision-making process, review of diagnostic data, adjustment of management, discussion with other providers, nursing nursing and ancillary staff involved in patient's care documentation, 55 Minutes Medications at Discharge Home Medications carvedilol 3.125 mg tablet 3.125 mg PO BID 60 days #120 tabs 07/16/22 empagliflozin 10 mg tablet (Jardiance) 10 mg PO DAILY 60 days #60 tabs 07/16/22 furosemide 40 mg tablet (Lasix) 40 mg PO DAILY #60 tabs 07/16/22 lisinopril 5 mg tablet 5 mg PO BID 60 days #120 tabs 07/16/22 potassium chloride 20 mEq tablet,extended release(part/cryst) (Klor-Con M) 20 meq PO DAILYCM 60 days #60 tabs 07/16/22 Hospital Course Summary of Care Provided Minutes Spent on Discharge: 55 Physical Exam Narrative GENERAL: cooperative HEENT: Atraumatic; normocephalic EYES; Anicteric, Normal Conjunctiva NECK; supple, normal thyroid, RESPIRATORY: Diminished to auscultation CARDIOVASCULAR: Regular S1 S2, GI: soft, normoactive bowel sounds, : No Renal angle tenderness; EXTREMITIES: edema, no clubbing, MUSCULOSKELETAL: no muscle wasting NEURO: Awake; no lateralizing signs. SKIN: No Rash PSYCH; Flat affect Weight / BMI Weight Weight: 125.3 kg Body Mass Index (BMI) 39.6 ABG / Lab / Microbiology Data Result Diagrams: 07/16/22 04:53 07/16/22 04:53 Laboratory: Laboratory Results - last 24 hr 07/16/22 04:53: WBC 8.7, RBC 4.81, Hgb 14.4, Hct 46.8, MCV 97.3 H, MCH 29.9, MCHC 30.8 L, RDW Std Deviation 49.5 H, RDW Coeff of Paz 13.7, Plt Count 215, MPV 11.3, Immature Gran % (Auto) 0.200, Neut % (Auto) 60.9, Lymph % (Auto) 23.7, [place] % (Auto) 12.6 H, Eos % (Auto) 2.1, Baso % (Auto) 0.5, Absolute Neuts (auto) 5.3, Absolute Lymphs (auto) 2.05, Nucleated RBC % 0 07/16/22 04:53: Sodium 140, Potassium 3.4 L, Chloride 105, Carbon Dioxide 31.0, Anion Gap 4 L, BUN 25 H, Creatinine 1.42 H, Estim Creat Clear Calc 56.41, Est GFR (MDRD) Af Amer 65, Est GFR (MDRD) Non-Af 54 L, BUN/Creatinine Ratio 17.6, Glucose 90, Calcium 9.5, Phosphorus 3.8, Magnesium 2.2 Radiography Diagnostic Testing: Radiology Impression Echocardiogram 07/14/22 21:37 Interpretation Summary The estimated ejection fraction is 15-20 %. There is severe global hypokinesis of the left ventricle. The left atrium is mildly enlarged. The right atrium is mildly enlarged. Mild (1+) mitral valve insufficiency. Ordering Physician: Aren Valderrama Referring Physician: No PCP Performed By: Emerson Sow RCS D/C Instructions Discharge Diet: 8 Cup Fluid Restriction and 2000 mg Sodium Diet Discharge Activity: Return to Normal Activity Call your doctor if you observe: Fever of 101 or Higher, Shortness of breath, Fainting spells and Chest pain Meaningful Use Info Meaningful Use Diagnoses (Choose all that apply): CHF CHF EMIL/ARB ordered at discharge?: Yes Documented LVEF (%): 20 Discharge Plan Admission Admit Date/Time: 07/14/22 19:47 Attending Provider: Khai Ro Primary Care Provider: Care Physician,No Primary Consulting Providers: Aren Valderrama ; Tim Miller Discharge Orders/Prescriptions Prescriptions: New carvedilol 3.125 mg Tablet 3.125 mg PO BID 60 Days Qty: 120 0RF potassium chloride [Klor-Con M20] 20 mEq Tablet,Er Particles/Crystals 20 meq PO DAILYCM 60 Days Qty: 60 0RF lisinopril 5 mg Tablet 5 mg PO BID 60 Days Qty: 120 0RF Jardiance 10 mg Tablet 10 mg PO DAILY 60 Days Qty: 60 0RF furosemide [Lasix] 40 mg tablet 40 mg PO DAILY Qty: 60 0RF Referrals / Follow Up: Tim Miller MD [Med Staff - Active Staff] - Within 2 Weeks Care Physician,No Primary [Primary Care Provider] - NOT,DEFINED [Non-Staff] - Disposition Disposition (needs filled in before D/C Order can be placed): Home, Self Care Charges/Coding Visit Charges Inpatient E&M: 88562 Disch Hosp >30min
--- NOTE | 2022-07-16 14:18 | CASEMGMT ---
Patient is being discharged on Jardiance. Patient is self pay. ERASMO CARRILLO called [facility] Retail pharmacy and cost for Jardiance is $1456.86. Per Jardiance website, patient does not qualify for savings card. Remaining prescriptions cost $73.10. ERASMO CARRILLO updated patient regarding cost of prescription and he cannot afford Jardiance script and will not fill. Patient states he is able to afford remain scripts. ERASMO CARRILLO update hospitalist and refrigeration operator regarding cost of Jardiance and patient refusing to fill.
[2022-07-16 15:44] VITALS: BP 131/90; PULSE 77; RESP 18; TEMP 36.4; O2SAT 97
== END 2022-07-16 04:15 | disposition home or self-care (01) | DRG 292 ==
LOC: ED 19:45 → PCU 20:02
PROVIDERS: Admitting Provider Hospitalist; Emergency Provider Student in an Organized Health Care Education/Training Program; Visit Provider Internal Medicine
DX: I50.21 Acute systolic (congestive) heart failure (principal); Z68.41 Body mass index [BMI] 40.0-44.9, adult; I42.6 Alcoholic cardiomyopathy; E66.01 Morbid (severe) obesity due to excess calories; F10.21 Alcohol dependence, in remission; E87.6 Hypokalemia; R03.0 Elevated blood-pressure reading, without diagnosis of hypertension; Z79.899 Other long term (current) drug therapy; Z87.891 Personal history of nicotine dependence; Z82.49 Family history of ischemic heart disease and other diseases of the circulatory system
CPT/HCPCS: 36415; 71045; 80048; 80053; 80061; 83735; 83880; 84100; 84443; 84484; 85025; 93005; 93306; 99285; Q9957; A4216; C8929; J1940

== ENCOUNTER → 2022-08-07 | Outpatient (CLI) | payer SELFPAY ==
--- NOTE | 2022-08-11 08:33 | STRESSREP_ITS ---
Stress Test Report Date: 08/07/2022 Procedure: Pharmacologic stress nuclear imaging study Indications: Cardiomyopathy Consent: Per the patient Procedure: The patient underwent pharmacologic (Regadenoson 0.4mg ) evaluation with a peak heart rate of 71 beats per minute (44%predicted maximal heart rate) and a peak blood pressure of 106/70 mmHg. The baseline ECG demonstrated normal sinus rhythm with left bundle branch block. The peak pharmacologic ECG demonstrated no diagnostic changes secondary to baseline abnormalities. Rare PVC was noted. There was no complaint of chest discomfort during pharmacologic infusion or recovery. The patient was injected with 14.7 millicuries of technetium 99m Cardiolite and subsequently rest SPECT Cardiolite nuclear imaging was obtained in the horizontal long, vertical long, and short axis views. The patient underwent pharmacologic (Regadenoson) evaluation. The patient was injected with 44.4 millicuries of technetium 99m Cardiolite and subsequently stress SPECT Cardiolite nuclear imaging was obtained in the horizontal long, vertical long, and short axis views. A gated Cardiolite study at peak stress was obtained. The examination was stopped secondary to completion of protocol. Rest and stress SPECT Cardiolite nuclear imaging status post realignment, normalization, and attenuation correction demonstrate small area of decreased perfusion at the apex which is minimally worse post Lexiscan. The reported LVEF is 32%. The left ventricle appears dilated. Impression: 1. Pharmacologic (Regadenoson) evaluation 2. Peak pharmacologic ECG with no diagnostic changes. 3. Rare PVC. 5. Small area of perfusion abnormality at the apex which is minimally worse post Lexiscan. No significant reversible perfusion defects. 6. The gated Cardiolite study reports an LVEF of 32%. This note was generated with Zdorovioation software. It may contain incorrect words, spelling, and punctuation that were not noted in checking the note before signing.
== END | disposition home or self-care (01) ==
LOC: CVS 06:36
PROVIDERS: Referring Provider Nurse Practitioner Family; Visit Provider Nurse Practitioner Family
DX: I11.0 Hypertensive heart disease with heart failure (principal); I50.21 Acute systolic (congestive) heart failure
CPT/HCPCS: 78452; 93017; A9500; A4216; J2785

== ENCOUNTER → 2022-10-29 | Outpatient (CLI) | payer SELFPAY ==
--- NOTE | 2022-10-29 09:16 | ECHOLC_ITS ---
Reason For Study: CHF Procedure This was a limited 2D transthoracic echocardiogram. Contrast injection was performed. Exam performed in department. Left Ventricle Mildly dilated left ventricle. Mild concentric left ventricular hypertrophy. The left ventricular ejection fraction is 50 %. Unable to assess diastolic function based on available data. Right Ventricle Normal right ventricle. Atria The left atrium is severely enlarged. The right atrium is severely enlarged. Mitral Valve The mitral valve is structurally normal. No prolapse or stenosis seen. Tricuspid Valve Normal tricuspid valve. Aortic Valve Normal aortic valve. Pulmonic Valve The pulmonic valve is not well visualized. Great Vessels Mildly dilated aortic root. Pericardium/Pleural No pericardial effusion. Medication 22 gauge I.V. with prn adaptor inserted into right arm. Diluted definity 1.5ml given slow IV push to enhance endocardial definition. MMode/2D Measurements & Calculations LVIDd: 5.9 cm IVSd: 1.2 cm Ao root diam: 3.9 cm LVIDs: 4.9 cm LVPWd: 1.2 cm RVDd: 3.5 cm FS: 16.2 % LAV(MOD-bp): 80.0 ml LVAd ap4: 39.0 cm2 LVAd ap2: 37.1 cm2 LAV(MOD-bp) Indexed: 34.5 ml/m2 LVLd ap4: 8.7 cm LVLd ap2: 10.2 cm LAV(MOD-sp2): 74.9 ml EDV(MOD-sp4): 144.3 ml EDV(MOD-sp2): 114.3 ml LAV(MOD-sp4): 85.6 ml EDV(sp4-el): 148.2 ml EDV(sp2-el): 114.6 ml LVAs ap4: 26.0 cm2 LVAs ap2: 22.9 cm2 LVLs ap4: 7.8 cm LVLs ap2: 7.7 cm ESV(MOD-sp4): 72.8 ml ESV(MOD-sp2): 57.8 ml ESV(sp4-el): 73.6 ml ESV(sp2-el): 57.8 ml EF(MOD-sp4): 49.6 % EF(MOD-sp2): 49.4 % EF(sp4-el): 50.3 % SV(MOD-sp4): 71.5 ml SV(MOD-sp2): 56.5 ml SV(sp4-el): 74.6 ml LA A4 area: 26.4 cm2 LA dimension(2D): 4.4 cm RA A4 area: 26.4 cm2 ECHO/Echo Limited w/Contrast Interpretation Summary Mildly dilated left ventricle. Mild concentric left ventricular hypertrophy. The left ventricular ejection fraction is 50 %. The left atrium is severely enlarged. The right atrium is severely enlarged. Ordering Physician: Benito Haywood Referring Physician: MORENO PCP Performed By: Vita Olmos RDCS, RVT
== END | disposition home or self-care (01) ==
LOC: CVS 08:58
PROVIDERS: Referring Provider Nurse Practitioner Family; Visit Provider Nurse Practitioner Family
DX: I11.0 Hypertensive heart disease with heart failure (principal); I50.21 Acute systolic (congestive) heart failure
CPT/HCPCS: 93308; Q9957; A4216; C8924

== ENCOUNTER 2024-12-24 16:41 | Inpatient (IN) | payer OTHER, SELFPAY ==
[2024-12-24] VITALS (14 sets, daily range): BP systolic 104–146; BP diastolic 80–115; PULSE 82–123; RESP 16–24; TEMP 36.6–37.1; O2SAT 96–100; BMI 38.8
--- NOTE | 2024-12-24 17:28 | EKG12_ITS ---
Test Reason : CP Blood Pressure : */* mmHG Vent. Rate : 123 BPM Atrial Rate : 246 BPM P-R Int : * ms QRS Dur : 144 ms QT Int : 432 ms P-R-T Axes : -85 0 235 degrees QTcB Int : 618 ms Atrial flutter with 2:1 A-V conduction Left bundle branch block Abnormal ECG Confirmed by Joseph Johnson ([id number]), offline editor JUAN TOSCANO ([id number]) on 12/26/2024 1:17:30 PM Referred By: TA/PÉREZ Confirmed By: Joseph Johnson
--- NOTE | 2024-12-24 17:29 | ED.VIS.CHEST ---
HPI History of Present Illness Chief Complaint: Chest Pain Informant: patient and spouse/S.O. Onset/Context/Timing Onset: Days (Exertional indigestion and dyspnea for the past 2 to 3 days) and Weeks (Pedal edema past week) Activity at onset: sudden (Exertional indigestion with dyspnea) and gradual (Swelling of his lower extremities) Timing: Intermittent Quality: Positive for Indigestion Location: Substernal (Inferior substernal region/left parasternal region) Current Severity: Gone Maximum Severity: Moderate Worsened By: Exertion; Not Worsened By Movement of Arm, Movement of Torso, Eating, Palpation, Breathing or Coughing Relieved By: Rest (Resolved after 5 to 10 minutes of rest) Associated Symptoms: Positive for Dyspnea; Negative for Nausea, Vomiting, Diaphoresis, Cough, Fever, Lightheadedness, Acid Reflux or Palpitations Narrative Narrative: Patient is a poor informant. He states he is seen by Dr. Miller. on. He admits to congestive heart failure and hypertension. He does not know why he is on carvedilol. His last echo was performed October 29, 2022. Patient had mild dilated left ventricle with mild concentric left ventricular hypertrophy and an estimated ejection fraction of 50%. The left atrium was severely enlarged and the right atrium is enlarged. Patient had a pharmacologic stress test performed August 11, 2022. Revealed small area of perfusion abnormality at the apex which is minimally worse post Lexiscan. There was no significant reversible perfusion defect noted. The gated Cardiolite study revealed an LVEF of 32%. Patient presents because of swelling, dyspnea and indigestion with exertion. He states if he goes up an incline he gets indigestion and he localizes it to the inferior sternal left parasternal region. It does not radiate. It is associated with shortness of breath. He states he has trouble getting his breath. His symptoms resolved after 5 to 10 minutes of rest. He has no known history of coronary disease. He and his states he has never had a cardiac catheterization. He has no history of atrial fibrillation or atrial flutter. Patient denies history of peptic ulcers, GERD, hiatal hernia. Patient denies intolerance to greasy or fried foods. Patient does have stable two-pillow orthopnea. He is also concerned because of increased swelling of his lower extremities. He is on furosemide. He reports compliance. Prior Similar Symptoms: No Recent Illness/Hospitalization: No CVD Risk Factors: Positive for Hypertension; Negative for Diabetes, Hypercholesterolemia or Family History 1' </=55 PE Risk Factors: Negative for Recent Travel/Surgery, Recent Immobilization, Prior DVT or PE, Cancer or OCP + Smoking + >/=35 TAD Risk Factors: Positive for Hypertension; Negative for Marfan's Syndrome or Family History PFSH PFSH Medical History Essential hypertension History of ETOH abuse Elevated blood pressure reading Home Medications ?Medication ?Instructions ?Recorded ?Last Taken ?Type potassium chloride 20 mEq See Rx Instructions .Route 05/11/23 12/24/24 Rx tablet,extended .COMPLEX #90 tabs release(part/cryst) (Klor-Con M) lisinopril 10 mg tablet 10 mg PO BID #180 tabs 08/24/23 12/24/24 Rx carvedilol 6.25 mg tablet 6.25 mg PO BID #180 TABLETS 08/23/24 12/24/24 Rx furosemide 40 mg tablet (Lasix) 40 mg PO DAILY #90 tabs 08/29/24 12/24/24 Rx Allergy/AdvReac Type Severity Reaction Status Date / Time No Known Allergies Allergy Verified 12/24/24 16:42 Family History Other COPD (chronic obstructive pulmonary disease) Heart disease Social History (Updated 12/24/24 @ 17:[address] Yuniel Hoffman MD) household members: spouse Smoking Status: Former smoker how long ago did patient quit smokin years ago alcohol intake: never substance use type: marijuana caffeine: No (None in the last couple of weeks) ROS ROS ED Constitutional Constitutional ED: Denies chills, fever(s), subjective or sweats Eyes Eyes: Reports none ENT ENT ED: Denies rhinorrhea or sore throat Cardiovascular Cardiovascular: Reports as per HPI and orthopnea; Denies paroxysmal nocturnal dyspnea Respiratory/Chest Respiratory/Chest: Reports dyspnea on exertion and orthopnea; Denies cough, dyspnea or paroxysmal nocturnal dyspnea Gastrointestinal Gastrointestinal: Denies abdominal pain, melena, nausea or vomiting Musculoskeletal Musculoskeletal: Denies arthralgias, back pain, myalgias or neck pain Integumentary Denies rash Neurologic Neurologic: Denies weakness Hematologic/Lymphatic Hematologic/Lymphatic: Denies easy bleeding or easy bruising EXAM Physical Exam Const Vital Signs: 12/24/24 16:41 12/24/24 17:03 12/24/24 17:49 Temperature 98.0 F Temperature Source Oral Pulse Rate 120 H 122 H Respiratory Rate 22 H 16 Respiratory Effort Normal Respiratory Depth Normal Respiratory Pattern Normal Blood Pressure 146/114 H 130/103 H Blood Pressure Mean 124 112 Pulse Ox 98 98 Oxygen Delivery Method Room Air Room Air Room Air 12/24/24 17:50 12/24/24 17:50 Temperature 98.8 F Temperature Source Oral Pulse Rate 122 H Respiratory Rate 16 Respiratory Effort Respiratory Depth Respiratory Pattern Blood Pressure 129/108 H Blood Pressure Mean 115 Pulse Ox 98 Oxygen Delivery Method Room Air Room Air Positive well nourished and well developed Constitutional Narrative: BMI is 38.8. He appears in no distress. Blood pressure is elevated 146/114 and heart rate is 120. General Appearance ED: well developed; Negative for pallor HEENT Reports moist mucous membranes normocephalic and atraumatic Eyes PERRL and EOMs intact bilaterally General Eye ED: Negative for pale conjunctiva or scleral icterus Neck no lymphadenopathy, supple and no JVD Chest Wall inspection of chest normal and palpation of chest normal Resp normal respiratory effort and No clear to auscultation bilaterally Auscultation: rales bilateral base Cardio regular rhythm, S1 normal heart sound, S2 normal heart sound and no murmurs Rate: tachycardic Peripheral Pulses: pulses 2+ throughout GI normal to inspection, nondistended, normoactive bowel sounds, soft to palpation, non-tender, non-distended and no masses; Negative for hepatosplenomegaly Back/Spine Back/Spine Narrative: Inspection of the back is normal. Extremity General Extremety ED: Yes edema General Extremity: edema bilateral lower extremity Details: moderate Neuro oriented x3 and CN's II-XII intact bilaterally Sensorium / Orientation: awake and alert Psych mental status grossly normal Skin no rashes or lesions noted and no wounds General Skin Exam: Negative for jaundice or pallor MDM MDM MDM Narrative Medical decision making narrative: Patient is EKG reveals possible atypical a flutter with 2-1 block with a rate of 123. Patient's history is concerning for new onset exertional angina. Will obtain cardiac markers. CBC to assess H&H and white count. BMP to assess renal function. Because of the bibasilar rales chest x-ray was obtained to assess for evidence of heart failure. Also obtained a BNP. History & Record Review Additional record(s) reviewed:: Prior outpatient record (Documented HPI narrative) and Prior labs Lab Data Attestation: I reviewed the patient's lab results. Lab results narrative: CBC is unremarkable. Basic metabolic panel is elevated BUN/creatinine of 27 and 1.37. First troponin is elevated at 60. BNP is elevated at 7117. Labs: Laboratory Results - last 24 hr 12/24/24 17:06 WBC 9.9 RBC 4.81 Hgb 15.1 Hct 45.8 MCV 95.2 H MCH 31.4 MCHC 33.0 RDW Std Deviation 49.7 H RDW Coeff of Paz 14.2 Plt Count 253 MPV 11.3 Immature Gran % (Auto) 0.300 Neut % (Auto) 60.1 Lymph % (Auto) 27.8 [place] % (Auto) 10.6 H Eos % (Auto) 0.8 Baso % (Auto) 0.4 Absolute Neuts (auto) 6.0 Absolute Lymphs (auto) 2.76 Nucleated RBC % 0 Sodium 141 Potassium 4.6 Chloride 106 Carbon Dioxide 23.4 Anion Gap 12 BUN 27 H Creatinine 1.37 H Estim Creat Clear Calc 72.52 Est GFR (MDRD) Non-Af 58 L BUN/Creatinine Ratio 19.4 Glucose 109 H Calcium 10.1 Troponin T High Sens 60 H* NT pro BNP II 7117 H Radiography Chest X-Ray - ED: 2 View, Read by ED Physician (There are some minimal chronic changes. There is mild cardiomegaly. Cardiac silhouette is normal. Lung parenchyma reveals no infiltrate, cephalization, curly B-lines and there is no effusion. Thoracic spine reveals degenerative changes. There is no acute osseous abnormalities noted. Independen), Unchanged, Mediastinum and No Acute Disease Diagnostic Testing: Clinical Impression(s) from Imaging Studies Chest X-Ray 12/24/24 17:55 IMPRESSION: Stable cardiomegaly with mild pulmonary vascular congestion. Reading Location: [facility] EKG Initial EKG: Attestation: I personally reviewed and interpreted this EKG as follows: Interpretation: - (Wide-complex tachycardia. Rate is 123. This may represent an atypical atrial flutter with 2-1 block. There is evidence of left bundle branch block. QRS durations 144 ms. QRS duration 432 ms. [place] is normal.) Management Discussion w/another healthcare provider: Hospitalist (Dr. Chong the admitting hospitalist was made aware where patient's history physical and discussion with cardiology. Full admit PCU) and [employer] Sales Representative (Spoke with police sergeant precinct on-call Dr. Colmenares. He was informed of patient's history, physical and concerns. Agrees with anticoagulation. He will see patient in the morning. Patient be admitted to hospital) Treatment and Re-Evaluation :: Aspirin, heparin, beta-yosef Critical Care Time Critical Care Time: Yes Critical care time (excluding procedures): 30-74 minutes (32), Including time spent: (History, physical, documentation, review of prior records, independent or potation laboratory results, treatment for ACS and CHF), Discussing w/Patient &/or Family/Gravel Inspector, Discussing w/Consultants (Cardiology and hospitalist) and Arranging Admission or Transfer Discharge Plan Dx/Rx/DC Orders Clinical Impression: ACS (acute coronary syndrome), Essential hypertension, Acute exacerbation of CHF (congestive heart failure), Sinus tachycardia, Adult BMI 38.0-38.9 kg/sq m Disposition Disposition: Acute Care Hospital [facility]
--- NOTE | 2024-12-24 17:55 | RAD_ITS ---
PROCEDURE: CHEST PA AND LATERAL 12/24/2024 REASON FOR EXAM: CHEST PAIN TECHNIQUE: Procedure Code: RADCXR Modality: DX Procedure: CHEST PA AND LATERAL COMPARISON: Chest x-ray 07/14/2022 FINDINGS: Hardware: None. Heart: The heart is enlarged but stable. Mediastinum: The mediastinal contour is unremarkable. Lungs: Mild pulmonary vascular congestion. No focal consolidation, pneumothorax, or effusion. Bones: The bones are unremarkable. RAD/Chest PA and Lateral IMPRESSION: Stable cardiomegaly with mild pulmonary vascular congestion. Reading [facility]
[2024-12-24 18:06] LABS: Hematocrit 45.8 % (40-54); Hemoglobin 15.1 g/dL (13.0-16.5); Immature Granulocytes Count 0.030 X10^3/uL (0.0-0.0); Mean Corp Hgb Conc 33.0 g/dL (32-36); Mean Corpuscular Volume 95.2 fL (80-94); Mean Platelet Vol. 11.3 fl (6.2-12.0); NRBC Flagged by Analyzer 0 % (0-5); Platelet Count 253 K/mm3 (150-450); RBC Distribution Width CV 14.2 % (11.6-14.6); RBC Distribution Width SD 49.7 fl (35.1-43.9); Red Blood Count 4.81 M/mm3 (4.6-6.2); White Blood Count 9.9 K/mm3 (4.4-11.0)
--- OUTSIDE RECORDS SUMMARY | 2024-12-24 18:16 | XMS RPT_ITS | CCD ---
Author Organization [facility] Care Team Providers Care Fluid Pump Operator Name Role Phone Unavailable Primary Care Provider Dr. Marques Morris Emergency Provider Care Physician, No Primary Primary Care Provider Unavailable Dr. Aren Valderrama Admit Provider Dr. Aren Valderrama Other Provider [phone] Khai Ro Attending Provider Unavailable Dr. Khai Ro Other Provider Unavailable Dr. Whitley Dobson Attending Provider Dr. Tim Miller Other Provider Dr. Tim Miller Attending Provider Care Physician, No Primary Referring Provider Un available Roof TRIBAL JUDGE, TRIBAL JUDGE-C Benito Johnson Attending Provider Roof TRIBAL JUDGE, TRIBAL JUDGE-C Benito Johnson Referring Provider Roof TRIBAL JUDGE, TRIBAL JUDGE-C Benito Johnson Other Provider Roof TRIBAL JUDGE, Benito Johnson Attending Unavailable Care Physician, No Primary Primary Care Unava ilable Roof TRIBAL JUDGE, Benito Johnson Referring Unavailable Roof TRIBAL JUDGE, Benito Johnson Attending Unavailable Care Physician, No Primary Primary Care Unava ilable Roof TRIBAL JUDGE, Benito Johnson Consulting Unavailable Roof TRIBAL JUDGE, Benito Johnson Referring Unavailable Care Physician, No Primary Primary Care Unava ilable Tim Miller Attending Unavailable Care Physician, No Primary Primary Care Unava ilable Aren Valderrama Admitting Unavailable Aren Valderrama Attending Unavailable Aren Valderrama Consulting Unavailable Khai Ro Attending Unavailable Khai Ro Consulting Unavailable Roof TRIBAL JUDGE, Benito Johnson Referring Unavailable Roof TRIBAL JUDGE, Benito Johnson Attending Unavailable Care Physician, No Primary Primary Care Unava ilable Care Physician, No Primary Primary Care Unava ilable AgyeAren huang Consulting Unavailable Agyepong, Aren Admitting Unavailable Khai Ro Attending Unavailable Paul, Tim Consulting Unavailable PaulTim dang Attending Unavailable PaulTim Consulting Unavailable Roof Benito MCMILLAN Attending Unavailable Care Physician, No Primary Primary Care Unava ilable Care Physician, No Primary Referring Unava ilable Care Physician, No Primary Primary Care Unava ilable Whitley Dobson Attending Unavailabl e Roof TRIBAL JUDGEBenito Referring Unavailable Care Physician, No Primary Primary Care Unava ilable PaulTim Attending Unavailable Paul, Tim Attending Unavailable Care Physician, No Primary Primary Care Unava ilable Roof TRIBAL JUDGE, ESTEFANY Johnson Referring Provider Medications Current Medications Medication Drug Class(es) Dates Sig (Normalized) Sig (Original) carvedilol 6.25 mg oral tablet (6 sources) alpha-Adrenergic Jaquelin, beta-Adrenergic Jaquelin Start: 07-30-2022 End: 08-21-2022 take 6.25 mg by mouth twice daily Carvedilol Active 6.25 MG PO TWICE A DAY 180 60 August 21, 2022 10:10am Start: 07-16-2022 End: 07-30-2022 take 3.125 mg by mouth twice daily Carvedilol Discontinued 3.125 MG PO TWICE A DAY 120 60 July 16, 2022 12:00am July 30, 2022 10:24am furosemide 40 mg oral tablet (4 sources) Loop Diuretic Start: 07-16-2022 End: 09-10-2022 take 1 tablet by mouth once daily Furosemide (Lasix) 40 mg tablet Active 40 MG PO DAILY 90 September 10, 2022 8:37am lisinopril 10 mg oral tablet (5 sources) Angiotensin Converting Enzyme Inhibitor Start: 08-26-2022 End: 08-26-2022 take 10 mg by mouth twice daily Lisinopril Active 10 MG PO TWICE A DAY 180 August 26, 2022 2:03pm Start: 07-16-2022 End: 08-26-2022 take 5 mg by mouth twice daily Lisinopril Discontinued 5 MG PO TWICE A DAY 120 60 July 16, 2022 12:00am August 26, 2022 2:02pm microencapsulated potassium chloride 20 meq extended release oral tablet (4 sources) Start: 07-16-2022 End: 09-10-2022 Potassium Chloride (Klor-Con M20) 20 mEq tablet,ER particles/crystals Active 20 MEQ PO DAILY 60 60 September 10, 2022 8:38am Completed/Discontinued Medications Medication Drug Class(es) Dates Sig (Normalized) Sig (Original) dapagliflozin 10 mg oral tablet (2 sources) Sodium-Glucose Cotransporter 2 Inhibitor Start: 07-30-2022 End: 08-26-2022 take 1 tablet by mouth once daily Dapagliflozin Propanediol (Farxiga) 10 mg tablet Discontinued 10 MG PO DAILY 30 July 30, 2022 12:00am August 26, 2022 2:00pm empagliflozin 10 mg oral tablet (3 sources) Sodium-Glucose Cotransporter 2 Inhibitor Start: 07-16-2022 End: 07-30-2022 take 1 tablet by mouth once daily Empagliflozin (Jardiance) 10 mg Tablet Discontinued 10 MG PO DAILY 60 60 July 16, 2022 12:00am July 30, 2022 9:40am Problems Active Problems Problem Classification Problem Date Documented Da te Episodic/Chronic Alcohol-related disorders (5 sources) History of alcohol abuse; Translations: [Alcohol abuse, in remission] Onset: 07-24-2022 07-16-2022 Chronic Congestive heart failure; nonhypertensive (13 sources) Congestive heart failure; Translations: [Heart failure, unspecified] Onset: 07-24-2022 07-14-2022 Chronic Essential hypertension (8 sources) Hypertensive disorder; Translations: [Essential (primary) hypertension] Onset: 07-30-2022 07-16-2022 Chronic Hypertension with complications and secondary hypertension (1 source) Hypertensive heart disease with heart failure; Translations: [Hypertensive heart disease with heart failure] Onset: 08-18-2022 Chronic Other circulatory disease (4 sources) Elevated blood pressure; Translations: [Elevated blood-pressure reading, without diagnosis of hypertension] 07-14-2022 Episodic Other lower respiratory disease (1 source) Dyspnea; Translations: [Shortness of breath] Episodic Other nutritional; endocrine; and metabolic disorders (4 sources) Morbid obesity; Translations: [Morbid (severe) obesity due to excess calories] 07-14-2022 Chronic Other nutritional; endocrine; and metabolic disorders (5 sources) Morbid (severe) obesity due to excess calories; Translations: [Morbid obesity] Onset: 07-24-2022 07-14-2022 Chronic Residual codes; unclassified (1 source) Peripheral edema; Translations: [Edema, unspecified] Episodic Past or Other Problems Problem Classification Problem Date Documented Da te Episodic/Chronic Other circulatory disease (3 sources) Elevated blood-pressure reading, without diagnosis of hypertension; Translations: [Elevated blood pressure reading without diagnosis of hypertension] Onset: 07-24-2022 07-14-2022 Episodic Other lower respiratory disease (1 source) Shortness of breath; Translations: [Shortness of breath] Onset: 07-24-2022 Episodic Results Test Name Value Interpretation Reference Range Facility Echo Limited w/Contraston Echo Limited w/Contrast [facility] [address] [place] [address] Echo Limited w/Contrast 10/29/22 0923 MR#: [id number] Acct: [id number] Name: SCARLETT LANDRY Rep #: [id number] : 1960 62 From: Tim Miller MD Attending Dr: Benito Haywood, DEYANIRA-C Status: REG CLI Ordering Dr: Benito Haywood TRIBAL JUDGE TRIBAL JUDGE-C Date: 10/29/22 Location: [facility] Sex: M C Admitted: Reason For Study: CHF Procedure This was a limited 2D transthoracic echocardiogram. Contrast injection was performed. Exam performed in department. Left Ventricle Mildly dilated left ventricle. Mild concentric left ventricular hypertrophy. The left ventricular ejection fraction is 50 %. Unable to assess diastolic function based on available data. Right Ventricle Normal right ventricle. Atria The left atrium is severely enlarged. The right atrium is severely enlarged. Mitral Valve The mitral valve is structurally normal. No prolapse or stenosis seen. Tricuspid Valve Normal tricuspid valve. Aortic Valve Normal aortic valve. Pulmonic Valve The pulmonic valve is not well visualized. Great Vessels Mildly dilated aortic root. Pericardium/Pleural No pericardial effusion. Medication 22 gauge I.V. with prn adaptor inserted into right arm. Diluted definity 1.5ml given slow IV push to enhance endocardial definition. MMode/2D Measurements Calculations LVIDd: 5.9 cm IVSd: 1.2 cm Ao root diam: 3.9 cm LVIDs: 4.9 cm LVPWd: 1.2 cm RVDd: 3.5 cm FS: 16.2 % LAV(MOD-bp): 80.0 ml LVAd ap4: 39.0 cm2 LVAd ap2: 37.1 cm2 LAV(MOD-bp) Indexed: 34.5 ml/m2 LVLd ap4: 8.7 cm LVLd ap2: 10.2 cm LAV(MOD-sp2): 74.9 ml EDV(MOD-sp4): 144.3 ml EDV(MOD-sp2): 114.3 ml LAV(MOD-sp4): 85.6 ml EDV(sp4-el): 148.2 ml EDV(sp2-el): 114.6 ml LVAs ap4: 26.0 cm2 LVAs ap2: 22.9 cm2 LVLs ap4: 7.8 cm LVLs ap2: 7.7 cm ESV(MOD-sp4): 72.8 ml ESV(MOD-sp2): 57.8 ml ESV(sp4-el): 73.6 ml ESV(sp2-el): 57.8 ml EF(MOD-sp4): 49.6 % EF(MOD-sp2): 49.4 % EF(sp4-el): 50.3 % SV(MOD-sp4): 71.5 ml SV(MOD-sp2): 56.5 ml SV(sp4-el): 74.6 ml LA A4 area: 26.4 cm2 LA dimension(2D): 4.4 cm RA A4 area: 26.4 cm2 ECHO/Echo Limited w/Contrast Interpretation Summary Mildly dilated left ventricle. Mild concentric left ventricular hypertrophy. The left ventricular ejection fraction is 50 %. The left atrium is severely enlarged. The right atrium is severely enlarged. Ordering Physician: Benito Haywood Referring Physician: MORENO PCP Performed By: Vita Olmos, KRIS, RVT 10/29/22 1249 Date Tim Miller MD CC: TRIBAL JUDGE-David Haywood; No Primary Care Physician Date Dictated: 10/29/22922 Date Transcribed: 10/29/22 124 Casing Blower: Signed Normal [facility] Stress Reporton 08-11-2022 Stress Report [facility] [address] [place] [id number] MR#: [id number] Acct: [id number] Name: SCARLETT LANDRY Rep #: [id number] : 1960 62 From: Tim Miller MD Primary Care: Care Physician,No Primary Status: REG CLI Referring Dr: Benito Haywood NP TRIBAL JUDGE-C Sex: M C Stress Test Report Date: 08/07/2022 Procedure: Pharmacologic stress nuclear imaging study Indications: Cardiomyopathy Consent: Per the patient Procedure: The patient underwent pharmacologic (Regadenoson 0.4mg ) evaluation with a peak heart rate of 71 beats per minute (44%predicted maximal heart rate) and a peak blood pressure of 106/70 mmHg. The baseline ECG demonstrated normal sinus rhythm with left bundle branch block. The peak pharmacologic ECG demonstrated no diagnostic changes secondary to baseline abnormalities. Rare PVC was noted. There was no complaint of chest discomfort during pharmacologic infusion or recovery. The patient was injected with 14.7 millicuries of technetium 99m Cardiolite and subsequently rest SPECT Cardiolite nuclear imaging was obtained in the horizontal long, vertical long, and short axis views. The patient underwent pharmacologic (Regadenoson) evaluation. The patient was injected with 44.4 millicuries of technetium 99m Cardiolite and subsequently stress SPECT Cardiolite nuclear imaging was obtained in the horizontal long, vertical long, and short axis views. A gated Cardiolite study at peak stress was obtained. The examination was stopped secondary to completion of protocol. Rest and stress SPECT Cardiolite nuclear imaging status post realignment, normalization, and attenuation correction demonstrate small area of decreased perfusion at the apex which is minimally worse post Lexiscan. The reported LVEF is 32%. The left ventricle appears dilated. Impression: 1. Pharmacologic (Regadenoson) evaluation 2. Peak pharmacologic ECG with no diagnostic changes. 3. Rare PVC. 5. Small area of perfusion abnormality at the apex which is minimally worse post Lexiscan. No significant reversible perfusion defects. 6. The gated Cardiolite study reports an LVEF of 32%. This note was generated with ReTenantation software. It may contain incorrect words, spelling, and punctuation that were not noted in checking the note before signing. 08/11/2250 Date Tim Miller MD CC: ESTEFANY Haywood; No Primary Care Physician Date Dictated: 08/11/22832 Date Transcribed: 08/11/22832 Casing Blower: RASHIDA Signed Normal [facility] Cardiology Visit Reporton Cardiology Visit Report [facility] [address] [place] [address] [address] [place], [place] [address] OFFICE VISIT Date of Service: 07/30/22 MR#: [id number] Acct: [id number] Name: SCARLETT LANDRY Rep #: [id number] : 1960 Provider: ESTEFANY peterson Age/Sex: 62/M Location: [facility] Status: Signed HPI HPI History of Present Illness Details: This is a 62-year-old male who presents the office today for a posthospital follow-up. He presented to [facility] on 07/14/2022 for shortness of breath, orthopnea, and lower extremity swelling. His high sensory troponin was noted to be 73 and his BNP was noted to be 896. He was admitted for further evaluation regarding CHF. Echocardiogram on 07/14/2022 showed ejection fraction 15-20% with severe global hypokinesis of left ventricle. He was noted to have mildly enlarged left atrium, mildly enlarged right atrium, mild mitral valve insufficiency, and RVSP of 45 mmHg. It was felt that his reduced ejection fraction was due to long-term alcohol abuse. He was started on new medications and discharged for outpatient follow-up. He denies chest, arm, jaw, or neck discomfort. He denies palpitations. He denies bilateral lower extremity edema. He denies claudication. He denies shortness of breath with activity, shortness of breath at rest, orthopnea, or PND. He denies chronic cough. He denies significant, sudden weight gain. He denies lightheadedness, dizziness, near-syncope, or syncope. He denies blood in urine, blood in stool, or epistaxis. He denies fever with chills. He denies myalgia. He acknowledges fatigue. His exercise level has remained stable. Intake Vital Signs 07/15/22 12:01 07/30/22 09:10 07/30/22 09:37 Height 5 ft 10 in 5 ft 10 in 5 ft 10 in Weight: 256 lb BMI 36.7 BP 114/79 Blood Pressure Location Lt brachial Position Sitting Respiration 18 Pulse 71 Pulse Source Monitor Intake Visit Reasons: [facility] S/P CHF Business Risk Consultant Required: No Accompanied by: Is patient in pain?: No Allergies No Known Allergies Allergy (Verified 07/30/22 09:40) Medications furosemide 40 mg tablet (Lasix) 40 mg PO DAILY #60 tabs 07/16/22 [Rx Confirmed 07/30/22] lisinopril 5 mg tablet 5 mg PO BID 60 days #120 tabs 07/16/22 [Rx Confirmed 07/30/22] potassium chloride 20 mEq tablet,extended release(part/cryst) (Klor-Con M) 20 meq PO DAILYCM 60 days #60 tabs 07/16/22 [Rx Confirmed 07/30/22] carvedilol 6.25 mg tablet 6.25 mg PO BID 60 days #120 tabs 07/30/22 [Rx Confirmed 07/30/22] dapagliflozin 10 mg tablet (Farxiga) 10 mg PO DAILY #30 tabs 07/30/22 [Rx Confirmed 07/30/22] Ejection fraction %: 15 to 19 Nurse's Note: Did not pickle cutter Jardiance due to cost. [facility] Medical History Elevated blood pressure reading Essential hypertension History of ETOH abuse Family History Other COPD (chronic obstructive pulmonary disease) Heart disease Social History Smoking Status: Former smoker how long ago did patient quit smokin years ago alcohol intake: never substance use type: marijuana caffeine: No (None in the last couple of weeks) ROS Const Const: Positive for fatigue; Negative for weakness, headache(s), frequent falls, difficulty sleeping or excessive sweating Eyes Eyes: Negative for loss of peripheral vision, transient loss of vision, blurry vision, double vision or tunnel vision ENT ENT: Negative for headache(s), dizziness, Nosebleed/epistaxis or balance problems Cardio Chest Pain: No Palpitations: No Edema: None Muscle aches with walking: None Resp Respiratory: Positive for snoring; Negative for SOB with activity, SOB at rest, SOB orthopnea SOB lying down, Cough or paroxysmal nocturnal dyspnea GI GI: Negative nausea, vomiting, heartburn or black,tarry stools : Negative for hematuria Musc Musc: Negative for muscle aches/ myalgia, muscle weakness, joint pain or balance problems Skin Skin: Negative non-healing lesions, rash or unusual bruising Neuro Neuro: Negative for dizziness, lightheadedness, near syncope, syncope, frequent falls, headache(s), weakness, blurry vision, double vision or lack of coordination Live Hematologic/Lymphatic : Negative for easy bleeding or easy bruising Endo Endo: Positive for fatigue; Negative for excessive sweating or increased thirst/drinking Psych Psych: Negative for anxiety or depression Allergy Allergy/Immunology: Negative for hives and Negative for rash Cardiology Exam Const Appearance: cooperative, healthy appearing, comfortable and no acute distress Nutritional Appearance: well nourished and obese Orientation: alert, awake and oriented x3 Head Head: normal to inspection Ears: hearing grossly normal bi (more content not included)... Normal [facility] Basic Metabolic Profile (BMP )on 07-18-2022 BUN Normal 7-18 [facility] Comment on above: Result Comment: Canc elled via OM: Order cancelled - Patient discharged Performed By: #### L 500.2500, L100.0100 ####[facility] [address] [place] [address] BUN/CRE Normal 10-20 [facility] Comment on above: Result Comment: Canc elled via OM: Order cancelled - Patient discharged Performed By: #### L 500.2500, L100.0100 ####[facility] [address] [facility] [address] CA,Total Normal 8.5-10.1 [facility] Comment on above: Result Comment: Canc elled via OM: Order cancelled - Patient discharged Performed By: #### L 500.2500, L100.0100 ####[facility] [address] [facility] [address] CL Normal 98-107 [facility] Comment on above: Result Comment: Canc elled via OM: Order cancelled - Patient discharged Performed By: #### L 500.2500, L100.0100 ####[facility] [address] [facility] [address] CO2 Normal 21.0-32.0 [facility] Comment on above: Result Comment: Canc elled via OM: Order cancelled - Patient discharged Performed By: #### L 500.2500, L100.0100 ####[facility] [address] [place], [address] CREAT,SERUM Normal 0.70-1.30 [facility] Comment on above: Result Comment: Canc elled via OM: Order cancelled - Patient discharged Performed By: #### L 500.2500, L100.0100 ####[facility] [address] [place], [address] EST GFR Normal >60 [facility] Comment on above: Result Comment: Canc elled via OM: Order cancelled - Patient discharged Performed By: #### L 500.2500, L100.0100 ####[facility] [address] [place], [address] EST GFR - AA Normal >60 [facility] Comment on above: Result Comment: Canc elled via OM: Order cancelled - Patient discharged Performed By: #### L 500.2500, L100.0100 ####[facility] [address] [place], [address] GAP Normal 5-15 [facility] Comment on above: Result Comment: Canc elled via OM: Order cancelled - Patient discharged Performed By: #### L 500.2500, L100.0100 ####[facility] [address] [place], [address] GLU Normal 74-106 [facility] Comment on above: Result Comment: Canc elled via OM: Order cancelled - Patient discharged Performed By: #### L 500.2500, L100.0100 ####[facility] [address] [place], [address] Potassium Normal 3.5-5.1 [facility] Comment on above: Result Comment: Canc elled via OM: Order cancelled - Patient discharged Performed By: #### L 500.2500, L100.0100 ####[facility] [address] [place], [address] Basic Metabolic Profile (BMP) Normal 136-145 [facility] Comment on above: Result Comment: Canc elled via OM: Order cancelled - Patient discharged Performed By: #### L 500.2500, L100.0100 ####[facility] [address] [place], [address] CBC W/Diff, Automatedon 04-0 -2022 Absolute Neut Normal 2.0-7.7 [facility] Comment on above: Result Comment: Canc elled via OM: Order cancelled - Patient discharged Performed By: #### L 500.2500, L100.0100 ####[facility] [address] [place], [address] HCT Normal 40-54 [facility] Comment on above: Result Comment: Canc elled via OM: Order cancelled - Patient discharged Performed By: #### L 500.2500, L100.0100 ####[facility] [address] [place], [address] HGB Normal 13.0-16.5 [facility] Comment on above: Result Comment: Canc elled via OM: Order cancelled - Patient discharged Performed By: #### L 500.2500, L100.0100 ####[facility] [address] [place], [address] MCH Normal 27.0-32.0 [facility] Comment on above: Result Comment: Canc elled via OM: Order cancelled - Patient discharged Performed By: #### L 500.2500, L100.0100 ####[facility] [address] [place], [address] MCHC Normal 32-36 [facility] Comment on above: Result Comment: Canc elled via OM: Order cancelled - Patient discharged Performed By: #### L 500.2500, L100.0100 ####[facility] [address] [place], [address] MCV Normal 80-94 [facility] Comment on above: Result Comment: Canc elled via OM: Order cancelled - Patient discharged Performed By: #### L 500.2500, L100.0100 ####[facility] [address] [place], [address] NEUT% Normal 47-70 [facility] Comment on above: Result Comment: Canc elled via OM: Order cancelled - Patient discharged Performed By: #### L 500.2500, L100.0100 ####[facility] [address] [place], [address] PLT Normal 150-450 [facility] Comment on above: Result Comment: Canc elled via OM: Order cancelled - Patient discharged Performed By: #### L 500.2500, L100.0100 ####[facility] [address] [place], [address] RBC Normal 4.6-6.2 [facility] Comment on above: Result Comment: Canc elled via OM: Order cancelled - Patient discharged Performed By: #### L 500.2500, L100.0100 ####[facility] [address] [place], [address] RDW CV Normal 11.6-14.6 [facility] Comment on above: Result Comment: Canc elled via OM: Order cancelled - Patient discharged Performed By: #### L 500.2500, L100.0100 ####[facility] [address] [place], [address] RDW SD Normal 35.1-43.9 [facility] Comment on above: Result Comment: Canc elled via OM: Order cancelled - Patient discharged Performed By: #### L 500.2500, L100.0100 ####[facility] [address], [address] WBC Normal 4.4-11.0 [facility] Comment on above: Result Comment: Canc elled via OM: Order cancelled - Patient discharged Performed By: #### L 500.2500, L100.0100 ####[facility] [address] [place], [address] Basic Metabolic Profile (BMP )on 07-17-2022 BUN Normal 7-18 [facility] Comment on above: Result Comment: Canc elled via OM: Order cancelled - Patient discharged Performed By: #### L 100.0100, L500.2500 ####[facility] [address] [place], [address] BUN/CRE Normal 10-20 [facility] [facility] Comment on above: Result Comment: Canc elled via OM: Order cancelled - Patient discharged Performed By: #### L 100.0100, L500.2500 ####[facility] [address] [place], [address] CA,Total Normal 8.5-10.1 [facility] Comment on above: Result Comment: Canc elled via OM: Order cancelled - Patient discharged Performed By: #### L 100.0100, L500.2500 ####[facility] [address] [place], [address] CL Normal 98-107 [facility] Comment on above: Result Comment: Canc elled via OM: Order cancelled - Patient discharged Performed By: #### L 100.0100, L500.2500 ####[facility] [address] [place], [address] CO2 Normal 21.0-32.0 [facility] Comment on above: Result Comment: Canc elled via OM: Order cancelled - Patient discharged Performed By: #### L 100.0100, L500.2500 ####[facility] [address] [place], [address] CREAT,SERUM Normal 0.70-1.30 [facility] Comment on above: Result Comment: Canc elled via OM: Order cancelled - Patient discharged Performed By: #### L 100.0100, L500.2500 ####[facility] [address] [place], [address] EST GFR Normal >60 [facility] Comment on above: Result Comment: Canc elled via OM: Order cancelled - Patient discharged Performed By: #### L 100.0100, L500.2500 ####[facility] [address] [place], [address] EST GFR - AA Normal >60 [facility] Comment on above: Result Comment: Canc elled via OM: Order cancelled - Patient discharged Performed By: #### L 100.0100, L500.2500 ####[facility] [address] [place], [address] GAP Normal 5-15 [facility] Comment on above: Result Comment: Canc elled via OM: Order cancelled - Patient discharged Performed By: #### L 100.0100, L500.2500 ####[facility] [address] [place], [address] GLU Normal 74-106 [facility] Comment on above: Result Comment: Canc elled via OM: Order cancelled - Patient discharged Performed By: #### L 100.0100, L500.2500 ####[facility] [address], [address] Potassium Normal 3.5-5.1 [facility] Comment on above: Result Comment: Canc elled via OM: Order cancelled - Patient discharged Performed By: #### L 100.0100, L500.2500 ####[facility] [address] [place], [address] Basic Metabolic Profile (BMP) Normal 136-145 [facility] Comment on above: Result Comment: Canc elled via OM: Order cancelled - Patient discharged Performed By: #### L 100.0100, L500.2500 ####[facility] [address] [place], [address] CBC W/Diff, Automatedon 04-0 -2022 Absolute Neut Normal 2.0-7.7 [facility] Comment on above: Result Comment: Canc elled via OM: Order cancelled - Patient discharged Performed By: #### L 100.0100, L500.2500 ####[facility] [address] [place], [address] HCT Normal 40-54 [facility] Comment on above: Result Comment: Canc elled via OM: Order cancelled - Patient discharged Performed By: #### L 100.0100, L500.2500 ####[facility] [address] [place], [address] HGB Normal 13.0-16.5 [facility] Comment on above: Result Comment: Canc elled via OM: Order cancelled - Patient discharged Performed By: #### L 100.0100, L500.2500 ####[facility] [address] [place], [address] MCH Normal 27.0-32.0 [facility] Comment on above: Result Comment: Canc elled via OM: Order cancelled - Patient discharged Performed By: #### L 100.0100, L500.2500 ####[facility] [address] [place], [address] MCHC Normal 32-36 [facility] Comment on above: Result Comment: Canc elled via OM: Order cancelled - Patient discharged Performed By: #### L 100.0100, L500.2500 ####[facility] [address] [place], [address] MCV Normal 80-94 [facility] Comment on above: Result Comment: Canc elled via OM: Order cancelled - Patient discharged Performed By: #### L 100.0100, L500.2500 ####[facility] [address] [place], [address] NEUT% Normal 47-70 [facility] Comment on above: Result Comment: Canc elled via OM: Order cancelled - Patient discharged Performed By: #### L 100.0100, L500.2500 ####[facility] [address] [place], [address] PLT Normal 150-450 [facility] Comment on above: Result Comment: Canc elled via OM: Order cancelled - Patient discharged Performed By: #### L 100.0100, L500.2500 ####[facility] [address] [place], [address] RBC Normal 4.6-6.2 [facility] Comment on above: Result Comment: Canc elled via OM: Order cancelled - Patient discharged Performed By: #### L 100.0100, L500.2500 ####[facility] [address] [place], [address] RDW CV Normal 11.6-14.6 [facility] Comment on above: Result Comment: Canc elled via OM: Order cancelled - Patient discharged Performed By: #### L 100.0100, L500.2500 ####[facility] [address] [place], [address] RDW SD Normal 35.1-43.9 [facility] Comment on above: Result Comment: Canc elled via OM: Order cancelled - Patient discharged Performed By: #### L 100.0100, L500.2500 ####[facility] [address] [place], [address] WBC Normal 4.4-11.0 [facility] Comment on above: Result Comment: Canc elled via OM: Order cancelled - Patient discharged Performed By: #### L 100.0100, L500.2500 ####[facility] [address] [place], [address] Absolute lymphocyte countOrd ered By: Dr. Ro on 07-16-2022 Lymphocytes Auto (Unsp spec) [#/Vol] 2.05 10*3/uL 0.83-4.51 [facility] Basic Metabolic Profile (BMP )on 07-16-2022 BUN/CRE 17.6 RATIO Normal 10-20 [facility] Comment on above: Performed By: #### L 501.2300, L100.0100, L501.5200, L500.2500 ####[facility] [address] [place], [address] CA,Total 9.5 mg/dL Normal 8.5-10.1 [facility] Comment on above: Performed By: #### L 501.2300, L100.0100, L501.5200, L500.2500 ####[facility] [address] [place], [address] Chloride [Moles/Vol] 105 mmol/L Normal 98-107 [facility] Comment on above: Performed By: #### L 501.2300, L100.0100, L501.5200, L500.2500 ####[facility] [address] [place], [address] CO2 [Moles/Vol] 31.0 mmol/L Normal 21.0-32.0 [facility] Comment on above: Performed By: #### L 501.2300, L100.0100, L501.5200, L500.2500 ####[facility] [address] [place], [address] Creatinine [Mass/Vol] 1.42 mg/dL High 0.70-1.30 [facility] Comment on above: Result Comment: The validity of the calculated GFR GFRAA in patients over 70 years has not been determined. Clinical correlation is essential. Performed By: #### L 501.2300, L100.0100, L501.5200, L500.2500 ####[facility] [address] [place], [address] ECRCL 56.41 ml/min Normal [facility] Comment on above: Performed By: #### L 501.2300, L100.0100, L501.5200, L500.2500 ####[facility] [address] [place], [address] EST GFR - AA 65 mL/min Normal >60 [facility] Comment on above: Result Comment: Afri can [place] GFR Calc Performed By: #### L 501.2300, L100.0100, L501.5200, L500.2500 ####[facility] [address] [place], [address] GAP 4 Low 5-15 [facility] Comment on above: Performed By: #### L 501.2300, L100.0100, L501.5200, L500.2500 ####[facility] [address] [place], [address] GFR/1.73 sq M.predicted among non-blacks MDRD (S/P/Bld) [Vol rate/Area] 54 mL/min/{1.73_m2} Low >60 [facility] Comment on above: Result Comment: Non- GFR Calc Performed By: #### L 501.2300, L100.0100, L501.5200, L500.2500 ####[facility] [address] [place], [address] Glucose [Mass/Vol] 90 mg/dL Normal 74-106 [facility] Comment on above: Performed By: #### L 501.2300, L100.0100, L501.5200, L500.2500 ####[facility] [address] [place], [address] Potassium [Moles/Vol] 3.4 mmol/L Low 3.5-5.1 [facility] Comment on above: Performed By: #### L 501.2300, L100.0100, L501.5200, L500.2500 ####[facility] [address] [place], [address] Sodium [Moles/Vol] 140 mmol/L Normal 136-145 [facility] Comment on above: Performed By: #### L 501.2300, L100.0100, L501.5200, L500.2500 ####[facility] [address] [place], [address] Urea nitrogen [Mass/Vol] 25 mg/dL High 7-18 [facility] Comment on above: Performed By: #### L 501.2300, L100.0100, L501.5200, L500.2500 ####[facility] [address] [place], [address] Basophil percentageOrdered B y: Dr. Ro on 07-16-2022 Basophil percentage 3.8 mg/dL 2.5-4.9 [facility] Basophils/100 WBC (Bld) 0.5 % 0-1 [facility] Chloride [Moles/Vol] 105 mmol/L 98-107 [facility] Eosinophils/100 WBC (Bld) 2.1 % 0-5 [facility] Glucose [Mass/Vol] 90 mg/dL 74-106 [facility] Neutrophils (Bld) [#/Vol] 5.3 10*3/uL 2.0-7.7 [facility] Neutrophils/100 WBC (Bld) 60.9 % 47-70 [facility] Potassium [Moles/Vol] 3.4 mmol/L 3.5-5.1 [facility] Sodium [Moles/Vol] 140 mmol/L 136-145 [facility] WBC (Bld) [#/Vol] 8.7 10*3/uL 4.4-11.0 [facility] Blood erythrocytes count (nu mber/volume)Ordered By: Dr. Ro on 07-16-2022 RBC (Bld) [#/Vol] 4.81 10*6/uL 4.6-6.2 [facility] Blood hemoglobin measurement (mass/volume)Ordered By: Dr. Ro on 07-16-2022 Hemoglobin (Bld) [Mass/Vol] 14.4 g/dL 13.0-16.5 [facility] Blood lymphocytes/100 leukoc ytesOrdered By: Dr. Ro on 07-16-2022 Lymphocytes/100 WBC (Bld) 23.7 % 19-41 [facility] Blood monocytes/100 leukocyt esOrdered By: Dr. Ro on 07-16-2022 Monocytes/100 WBC (Bld) 12.6 % 0-10 [facility] Blood platelet mean volumeOr dered By: Dr. Ro on 07-16-2022 Platelet mean volume (Bld) [Entitic vol] 11.3 fL 6.2-12.0 [facility] CBC W/Diff, Automatedon 04-0 Absolute Lymph 2.05 X10 3/uL Normal 0.83-4.51 [facility] Comment on above: Performed By: #### L 501.2300, L100.0100, L501.5200, L500.2500 ####[facility] [address] [place], [address] Absolute Neut 5.3 X10 3/uL Normal 2.0-7.7 [facility] Comment on above: Performed By: #### L 501.2300, L100.0100, L501.5200, L500.2500 ####[facility] [address] [place], [address] Basophils/100 WBC (Bld) 0.5 % Normal 0-1 [facility] Comment on above: Performed By: #### L 501.2300, L100.0100, L501.5200, L500.2500 ####[facility] [address] [place], [address] Eosinophils/100 WBC (Bld) 2.1 % Normal 0-5 [facility] Comment on above: Performed By: #### L 501.2300, L100.0100, L501.5200, L500.2500 ####[facility] [address] [place], [address] Erythrocyte distribution width (RBC) [Ratio] 13.7 % Normal 11.6-14.6 [facility] Comment on above: Performed By: #### L 501.2300, L100.0100, L501.5200, L500.2500 ####[facility] [address] [place], [address] Hematocrit (Bld) [Volume fraction] 46.8 % Normal 40-54 [facility] Comment on above: Performed By: #### L 501.2300, L100.0100, L501.5200, L500.2500 ####[facility] [address] [place], [address] Hemoglobin (Bld) [Mass/Vol] 14.4 g/dL Normal 13.0-16.5 [facility] Comment on above: Performed By: #### L 501.2300, L100.0100, L501.5200, L500.2500 ####[facility] [address] [place], [address] IG% 0.200 Normal 0.0-0.9 [facility] Comment on above: Result Comment: IG% - Immature Granulocytes (promyelocytes, myelocytes and metamyelocytes) > 1% indicates that a LEFT SHIFT is Present. Performed By: #### L 501.2300, L100.0100, L501.5200, L500.2500 ####[facility] [address] [place], [address] Lymphocytes/100 WBC (Bld) 23.7 % Normal 19-41 [facility] Comment on above: Performed By: #### L 501.2300, L100.0100, L501.5200, L500.2500 ####[facility] [address] [place], [address] MCH (RBC) [Entitic mass] 29.9 pg Normal 27.0-32.0 [facility] Comment on above: Performed By: #### L 501.2300, L100.0100, L501.5200, L500.2500 ####[facility] [address] [place], [address] MCHC (RBC) [Mass/Vol] 30.8 g/dL Low 32-36 [facility] Comment on above: Performed By: #### L 501.2300, L100.0100, L501.5200, L500.2500 ####[facility] [address] [place], [address] MCV (RBC) [Entitic vol] 97.3 fL High 80-94 [facility] Comment on above: Performed By: #### L 501.2300, L100.0100, L501.5200, L500.2500 ####[facility] [address] [place], [address] Monocytes/100 WBC (Bld) 12.6 % High 0-10 [facility] Comment on above: Performed By: #### L 501.2300, L100.0100, L501.5200, L500.2500 ####[facility] [address] [place], [address] Neutrophils/100 WBC (Bld) 60.9 % Normal 47-70 [facility] Comment on above: Performed By: #### L 501.2300, L100.0100, L501.5200, L500.2500 ####[facility] [address] [place], [address] Nucleated RBC (Bld) [#/Vol] 0 10*3/uL Normal 0-5 [facility] Comment on above: Performed By: #### L 501.2300, L100.0100, L501.5200, L500.2500 ####[facility] [address] [place], [address] Platelet mean volume (Bld) [Entitic vol] 11.3 fL Normal 6.2-12.0 [facility] Comment on above: Performed By: #### L 501.2300, L100.0100, L501.5200, L500.2500 ####[facility] [address] [place], [address] Platelets (Bld) [#/Vol] 215 10*3/uL Normal 150-450 [facility] Comment on above: Performed By: #### L 501.2300, L100.0100, L501.5200, L500.2500 ####[facility] [address] [place], [address] RBC (Bld) [#/Vol] 4.81 10*6/uL Normal 4.6-6.2 [facility] Comment on above: Performed By: #### L 501.2300, L100.0100, L501.5200, L500.2500 ####[facility] [address] [place], [address] RDW SD 49.5 fl High 35.1-43.9 [facility] Comment on above: Performed By: #### L 501.2300, L100.0100, L501.5200, L500.2500 ####[facility] [address] [place], [address] WBC (Bld) [#/Vol] 8.7 10*3/uL Normal 4.4-11.0 [facility] Comment on above: Performed By: #### L 501.2300, L100.0100, L501.5200, L500.2500 ####[facility] [address] [place], [address] Consultation - Cardiologyon 07-16-2022 Consultation - Cardiology [facility] Medical Records Department [address] [place] [address] Consultation - Cardiology 07/16/22 1007 MR#: [id number] Acct: [id number] Name: SCARLETT LANDRY Rep #: [id number] : 1960 62 From: Tim Miller MD PCP: Care Physician,No Primary Status:ADM IN Location: [place] [address] Assessment Plan Assessment/Plan (1) Congestive heart failure (CHF): QUALIFIERS: Heart failure type: systolic Heart failure chronicity: acute Qualified Code(s): I50.21 - Acute systolic (congestive) heart failure PLAN: Functional class III. Agree with diuresis. Titrate CRUZ inhibitors upward as tolerated. Start on SGLT2 inhibitor. Introduce low-dose beta-blockers. 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 However will need to rule out coronary artery disease. Will consider coronary angiography versus stress test as outpatient. (2) Hypertension: PLAN: Increase CRUZ inhibitor's as tolerated. Introduce low-dose beta-blockers. (3) History of ETOH abuse: PLAN: Abstinent for the last 1 month. Encouraged to continue to stay abstinent. HPI Consult Data Date of Consult: 07/16/22 HPI Narrative Reason for Consultation: Congestive heart failure HPI Narrative: The patient presented to the hospital with complaints of a 2-week history of increasing shortness of breath and ankle edema. He also complained of increasing fatigue. No chest pain. An echocardiogram was done for the patient which showed ejection fraction of 15 to 20% with global hypokinesis. Patient denies any previous history of heart disease. He has a history of EtOH abuse. Per him, he quit drinking about a month ago. [facility] Medical History no medical history Home Medications NK 07/14/22 [History Last Taken Unknown] Allergy/AdvReac Type Severity Reaction Status Date / Time No Known Allergies Allergy Verified 07/14/22 15:27 Family History (Updated 07/14/22 @ 20:[address] Aren Valderrama MD) Other COPD (chronic obstructive pulmonary disease) Heart disease Surgical History no surgical history Social History Smoking Status: Former smoker Physical Exam Narrative Comfortable. No apparent distress. Positive jugular venous distention. Heart sounds 1 and 2 no baldemar. Positive S3. No murmurs. Chest examination shows bibasilar crepitations. Abdomen soft. Dilcia rt oriented x3. 3+ bilateral lower extremity edema is noted. Risk Stratification Risk Stratification Applicable: No Objective Data Vital Signs: Vital Signs Temp Pulse Resp BP Pulse Ox O2 Del Method 97.5 F L 70 18 132/90 H 98 Room Air 07/16/22 09:10 07/16/22 09:10 07/16/22 09:10 07/16/22 09:10 07/16/22 09:10 07/16/22 09:10 Oxygen Delivery Method Room Air Weight: 276 lb 3.827 oz Body Mass Index (BMI) 39.6 Intake Output: Intake and Output for Last 24 Hours 07/14/22 07/15/22 07/16/22 23:59 23:59 23:59 Intake Total 240 / 240 Balance 240 / 240 Lab / Micro Data Result Diagrams: 07/16/22 04:53 07/16/22 04:53 Labs: Laboratory Results - last 24 hr 07/16/22 04:53: WBC 8.7, RBC 4.81, Hgb 14.4, Hct 46.8, MCV 97.3 H, MCH 29.9, MCHC 30.8 L, RDW Std Deviation 49.5 H, RDW Coeff of Paz 13.7, Plt Count 215, MPV 11.3, Immature Gran % (Auto) 0.200, Neut % (Auto) 60.9, Lymph % (Auto) 23.7, [place] % (Auto) 12.6 H, Eos % (Auto) 2.1, Baso % (Auto) 0.5, Absolute Neuts (auto) 5.3, Absolute Lymphs (auto) 2.05, Nucleated RBC % 0 07/16/22 04:53: Sodium 140, Potassium 3.4 L, Chloride 105, Carbon Dioxide 31.0, Anion Gap 4 L, BUN 25 H, Creatinine 1.42 H, Estim Creat Clear Calc 56.41, Est GFR (MDRD) Af Amer 65, Est GFR (MDRD) Non-Af 54 L, BUN/Creatinine Ratio 17.6, Glucose 90, Calcium 9.5, Phosphorus 3.8, Magnesium 2.2 Rhythm Strip Rhythm Strip: Sinus Rhythm Cardiology Labs/Tests 07/16/22 04:53: WBC 8.7, RBC 4.81, Hgb 14.4, Hct 46.8, MCV 97.3 H, MCH 29.9, MCHC 30.8 L, Plt Count 215, MPV 11.3, Immature Gran % (Auto) 0.200, Neut % (Auto) 60.9, Lymph % (Auto) 23.7, [place] % (Auto) 12.6 H, Eos % (Auto) 2.1, Baso % (Auto) 0.5, Absolute Neuts (auto) 5.3, Nucleated RBC % 0 07/16/22 04:53: Sodium 140, Potassium 3.4 L, Chloride 105, Carbon Dioxide 31.0, Anion Gap 4 L, BUN 25 H, Creatinine 1.42 H, Est GFR (MDRD) Af Amer 65, Est GFR (MDRD) Non-Af 54 L, BUN/Creatinine Ratio 17.6, Glucose 90, Calcium 9.5, Phosphorus 3.8, Magnesium 2.2 Rhythm: EKG: Normal sinus rhythm with nonspecific intraventricular conduction delay ECHO: Global hypokinesis of the left ventricle. Ejection fraction 15 to 20%. Mild mitral valve regurgitation. Stress Test: Cardiac Cath: PCI: CT Surgery: Holter monitor: EPS: PPM: CXR: Chest CT Scan: Radiography Diagnostic Testing: Radiology Impression Echocardiogram 07/14/22 21:37 Interpretation Summary (more content not included)... Normal [facility] Determination of erythrocyte mean corpuscular volume (MCV)Ordered By: Dr. Ro on 07-16-2022 MCV (RBC) [Entitic vol] 97.3 fL 80-94 [facility] Hematocrit Auto (Bld) [Volum e fraction]Ordered By: Dr. Ro on 07-16-2022 Hematocrit (Bld) [Volume fraction] 46.8 % 40-54 [facility] Laboratory - Chemistry and C hemistry - challengeOrdered By: Dr. Ro on 07-16-2022 CO2 [Moles/Vol] 31.0 mmol/L 21.0-32.0 [facility] Magnesium [Mass/Vol] 2.2 mg/dL 1.6-2.6 [facility] Urea nitrogen/Creatinine [Mass ratio] 17.6 mg/mg 10-20 [facility] Laboratory - Hematology and Cell countsOrdered By: Dr. Ro on 07-16-2022 Erythrocyte distribution width (RBC) [Entitic vol] 49.5 fL 35.1-43.9 [facility] Erythrocyte distribution width (RBC) [Ratio] 13.7 % 11.6-14.6 [facility] Immature granulocytes/100 WBC (Bld) 0.200 % 0.0-0.9 [facility] Comment on above: IG% - Immature Granu locytes (promyelocytes, myelocytes and metamyelocytes) > 1% indicates that a LEFT SHIFT is Present. MCH (RBC) [Entitic mass] 29.9 pg 27.0-32.0 [facility] Nucleated RBC/100 WBC (Bld) [Ratio] 0 % 0-5 [facility] MCHC Auto (RBC) [Mass/Vol]Or dered By: Dr. Ro on 07-16-2022 MCHC (RBC) [Mass/Vol] 30.8 g/dL 32-36 [facility] Magnesiumon 07-16-2022 Magnesium [Mass/Vol] 2.2 mg/dL Normal 1.6-2.6 [facility] Comment on above: Performed By: #### L 501.2300, L100.0100, L501.5200, L500.2500 ####[facility] [address] [place], [place], [id number] No Panel InformationOrdered By: Dr. Ro on 07-16-2022 Estimated Creatinine Clearance Calc 56.41 ml/min [facility] Estimated GFR (MDRD) Amer 65 mL/min >60 [facility] Comment on above: GFR Calc Estimated GFR (MDRD) Non-Af Amer 54 mL/min >60 [facility] Comment on above: Non- GFR Calc Phosphoruson 07-16-2022 Phosphate [Mass/Vol] 3.8 mg/dL Normal 2.5-4.9 [facility] Comment on above: Performed By: #### L 501.2300, L100.0100, L501.5200, L500.2500 ####[facility] [address] [place], [address] Platelets bldOrdered By: Dr. Ro on 07-16-2022 Platelets (Bld) [#/Vol] 215 10*3/uL 150-450 [facility] Serum or plasma calcium stacie urement (mass/volume)Ordered By: Dr. Ro on 07-16-2022 Calcium [Mass/Vol] 9.5 mg/dL 8.5-10.1 [facility] Serum or plasma creatinine m easurement (mass/volume)Ordered By: Dr. Ro on 07-16-2022 Creatinine [Mass/Vol] 1.42 mg/dL 0.70-1.30 [facility] Comment on above: The validity of the calculated GFR & GFRAA in patients over 70 years has not been determined. Clinical correlation is essential. Serum or plasma urea nitroge n measurement (mass/volume)Ordered By: Dr. Ro on 07-16-2022 Urea nitrogen [Mass/Vol] 25 mg/dL 7-18 [facility] Thin prep Papanicolaou smear with manual screeningOrdered By: Dr. Ro on 07-16-2022 Thin prep Papanicolaou smear with manual screening 4 5-15 [facility] Basophil percentageOrdered B y: Dr. Valderrama on 07-15-2022 Bilirubin [Mass/Vol] 1.20 mg/dL 0.20-1.00 [facility] Comment on above: For patients on eltr ombopag therapy, use of Dimension [place] TBIL is not recommended. Cholesterol [Mass/Vol] 88 mg/dL <200 [facility] Comment on above: <200 mg/dL Desirable 200-240 mg/dL Borderline >240 mg/dL High Risk Protein [Mass/Vol] 6.6 g/dL 6.4-8.2 [facility] Triglyceride [Mass/Vol] 65 mg/dL <199 [facility] Comment on above: The drugs N-Acetylcy steine and Metamizole may falsely depress this assay.Serum Triglycerides Reference Interval Normal <150 mg/dL Borderline high 150 - 199 mg/dL High 200 - 499 mg/dL Very High > or = 500 mg/dL CBC W/Diff, Automatedon Absolute Lymph 1.94 X10 3/uL Normal 0.83-4.51 [facility] Comment on above: Performed By: #### L 500.4100, L501.9520, L500.4050, L100.0100 ####[facility] [address] [place], [address] Absolute Neut 5.4 X10 3/uL Normal 2.0-7.7 [facility] Comment on above: Performed By: #### L 500.4100, L501.9520, L500.4050, L100.0100 ####[facility] [address] [place], [address] Basophils/100 WBC (Bld) 0.4 % Normal 0-1 [facility] Comment on above: Performed By: #### L 500.4100, L501.9520, L500.4050, L100.0100 ####[facility] [address] [place], [address] Eosinophils/100 WBC (Bld) 1.9 % Normal 0-5 [facility] Comment on above: Performed By: #### L 500.4100, L501.9520, L500.4050, L100.0100 ####[facility] [address] [place], [address] Erythrocyte distribution width (RBC) [Ratio] 14.0 % Normal 11.6-14.6 [facility] Comment on above: Performed By: #### L 500.4100, L501.9520, L500.4050, L100.0100 ####[facility] [address] [place], [address] Hematocrit (Bld) [Volume fraction] 45.4 % Normal 40-54 [facility] Comment on above: Performed By: #### L 500.4100, L501.9520, L500.4050, L100.0100 ####[facility] [address] [place], [address] Hemoglobin (Bld) [Mass/Vol] 13.9 g/dL Normal 13.0-16.5 [facility] Comment on above: Performed By: #### L 500.4100, L501.9520, L500.4050, L100.0100 ####[facility] [address] [place], [address] IG% 0.400 Normal 0.0-0.9 [facility] Comment on above: Result Comment: IG% - Immature Granulocytes (promyelocytes, myelocytes and metamyelocytes) > 1% indicates that a LEFT SHIFT is Present. Performed By: #### L 500.4100, L501.9520, L500.4050, L100.0100 ####[facility] [address] [place], [address] Lymphocytes/100 WBC (Bld) 22.7 % Normal 19-41 [facility] Comment on above: Performed By: #### L 500.4100, L501.9520, L500.4050, L100.0100 ####[facility] [address] [place], [address] MCH (RBC) [Entitic mass] 30.2 pg Normal 27.0-32.0 [facility] Comment on above: Performed By: #### L 500.4100, L501.9520, L500.4050, L100.0100 ####[facility] [address] [place], [address] MCHC (RBC) [Mass/Vol] 30.6 g/dL Low 32-36 [facility] Comment on above: Performed By: #### L 500.4100, L501.9520, L500.4050, L100.0100 ####[facility] [address] [place], [address] MCV (RBC) [Entitic vol] 98.7 fL High 80-94 [facility] Comment on above: Performed By: #### L 500.4100, L501.9520, L500.4050, L100.0100 ####[facility] [address] [place], [address] Monocytes/100 WBC (Bld) 12.1 % High 0-10 [facility] Comment on above: Performed By: #### L 500.4100, L501.9520, L500.4050, L100.0100 ####[facility] [address] [place], [address] Neutrophils/100 WBC (Bld) 62.5 % Normal 47-70 [facility] Comment on above: Performed By: #### L 500.4100, L501.9520, L500.4050, L100.0100 ####[facility] [address] [place], [address] Nucleated RBC (Bld) [#/Vol] 0 10*3/uL Normal 0-5 [facility] Comment on above: Performed By: #### L 500.4100, L501.9520, L500.4050, L100.0100 ####[facility] [address] [place], [address] Platelet mean volume (Bld) [Entitic vol] 11.7 fL Normal 6.2-12.0 [facility] Comment on above: Performed By: #### L 500.4100, L501.9520, L500.4050, L100.0100 ####[facility] [address] [place], [address] Platelets (Bld) [#/Vol] 214 10*3/uL Normal 150-450 [facility] Comment on above: Performed By: #### L 500.4100, L501.9520, L500.4050, L100.0100 ####[facility] [address] [place], [address] RBC (Bld) [#/Vol] 4.60 10*6/uL Normal 4.6-6.2 [facility] Comment on above: Performed By: #### L 500.4100, L501.9520, L500.4050, L100.0100 ####[facility] [address] [place], [address] RDW SD 51.0 fl High 35.1-43.9 [facility] Comment on above: Performed By: #### L 500.4100, L501.9520, L500.4050, L100.0100 ####[facility] [address] [place], [address] WBC (Bld) [#/Vol] 8.5 10*3/uL Normal 4.4-11.0 [facility] Comment on above: Performed By: #### L 500.4100, L501.9520, L500.4050, L100.0100 ####[facility] [address] [place], [address] Comprehensive Metabolic Prof [facility] 07-15-2022 Albumin [Mass/Vol] 3.3 g/dL Normal 3.2-5.0 [facility] Comment on above: Performed By: #### L 500.4100, L501.9520, L500.4050, L100.0100 ####[facility] [address] [place], [address] Albumin/Globulin [Mass ratio] 1.0 {ratio} Normal 0.9-2.4 [facility] Comment on above: Performed By: #### L 500.4100, L501.9520, L500.4050, L100.0100 ####[facility] [address] [place], [address] ALK P 66 U/L Normal 45-117 [facility] Comment on above: Performed By: #### L 500.4100, L501.9520, L500.4050, L100.0100 ####[facility] [address] [place], [address] ALT [Catalytic activity/Vol] 34 U/L Normal 16-61 [facility] Comment on above: Performed By: #### L 500.4100, L501.9520, L500.4050, L100.0100 ####[facility] [address] [place], [address] AST [Catalytic activity/Vol] 33 U/L Normal 15-37 [facility] Comment on above: Performed By: #### L 500.4100, L501.9520, L500.4050, L100.0100 ####[facility] [address] [place], [address] Bilirubin [Mass/Vol] 1.20 mg/dL High 0.20-1.00 [facility] Comment on above: Result Comment: For patients on eltrombopag therapy, use of Dimension [place] TBIL is not recommended. Performed By: #### L 500.4100, L501.9520, L500.4050, L100.0100 ####[facility] [address] [place], [address] BUN/CRE 15.9 RATIO Normal 10-20 [facility] Comment on above: Performed By: #### L 500.4100, L501.9520, L500.4050, L100.0100 ####[facility] [address] [place], [address] CA,Total 8.9 mg/dL Normal 8.5-10.1 [facility] Comment on above: Performed By: #### L 500.4100, L501.9520, L500.4050, L100.0100 ####[facility] [address] [place], [address] Chloride [Moles/Vol] 108 mmol/L High 98-107 [facility] Comment on above: Performed By: #### L 500.4100, L501.9520, L500.4050, L100.0100 ####[facility] [address] [place], [address] CO2 [Moles/Vol] 30.0 mmol/L Normal 21.0-32.0 [facility] Comment on above: Performed By: #### L 500.4100, L501.9520, L500.4050, L100.0100 ####[facility] [address] [place], [address] Creatinine [Mass/Vol] 1.26 mg/dL Normal 0.70-1.30 [facility] Comment on above: Result Comment: The validity of the calculated GFR GFRAA in patients over 70 years has not been determined. Clinical correlation is essential. Performed By: #### L 500.4100, L501.9520, L500.4050, L100.0100 ####[facility] [address] [place], [address] ECRCL 63.57 ml/min Normal [facility] Comment on above: Performed By: #### L 500.4100, L501.9520, L500.4050, L100.0100 ####[facility] [address] [place], [address] EST GFR - AA 75 mL/min Normal >60 [facility] Comment on above: Result Comment: Afri can British GFR Calc Performed By: #### L 500.4100, L501.9520, L500.4050, L100.0100 ####[facility] [address] [place], [address] GAP 3 Low 5-15 [facility] Comment on above: Performed By: #### L 500.4100, L501.9520, L500.4050, L100.0100 ####[facility] [address] [place], [address] GFR/1.73 sq M.predicted among non-blacks MDRD (S/P/Bld) [Vol rate/Area] 62 mL/min/{1.73_m2} Normal >60 [facility] Comment on above: Result Comment: Non- GFR Calc Performed By: #### L 500.4100, L501.9520, L500.4050, L100.0100 ####[facility] [address] [place], [address] Globulin (S) [Mass/Vol] 3.3 g/dL Normal 2.2-4.2 [facility] Comment on above: Performed By: #### L 500.4100, L501.9520, L500.4050, L100.0100 ####[facility] [address] [place], [address] Glucose [Mass/Vol] 90 mg/dL Normal 74-106 [facility] Comment on above: Performed By: #### L 500.4100, L501.9520, L500.4050, L100.0100 ####[facility] [address] [place], [address] Potassium [Moles/Vol] 3.8 mmol/L Normal 3.5-5.1 [facility] Comment on above: Performed By: #### L 500.4100, L501.9520, L500.4050, L100.0100 ####[facility] [address] [place], [address] Sodium [Moles/Vol] 141 mmol/L Normal 136-145 [facility] Comment on above: Performed By: #### L 500.4100, L501.9520, L500.4050, L100.0100 ####[facility] [address] [place], [address] T PROT 6.6 g/dL Normal 6.4-8.2 [facility] Comment on above: Performed By: #### L 500.4100, L501.9520, L500.4050, L100.0100 ####[facility] [address] [place], [address] Urea nitrogen [Mass/Vol] 20 mg/dL High 7-18 [facility] Comment on above: Performed By: #### L 500.4100, L501.9520, L500.4050, L100.0100 ####[facility] [address] [place], [address] L501.4020on 07-15-2022 TROPONIN-I HS 70 pg/mL Normal 3.0-78.0 [facility] Comment on above: Order Comment: Comme nts: SPECIMEN #3'TROP' Serial specimen #1, #2 or #3: 3 Result Comment: Plea se Note: New Test Units and Gender Specific Reference Ranges. For more information see Policy Stat Procedure [place] High Sensitivity Troponin (TNIH) and attachments. Performed By: #### L 501.4020 ####[facility] [address] [place], [address] TROPONIN-I HS 70 pg/mL Normal 3.0-78.0 [facility] Comment on above: Order Comment: Comme nts: SPECIMEN #2 'TROP' Serial specimen #1, #2 or #3: 2 Result Comment: Plea se Note: New Test Units and Gender Specific Reference Ranges. For more information see Policy Stat Procedure [place] High Sensitivity Troponin (TNIH) and attachments. Performed By: #### L 501.4020 #### [facility] Laboratory [address] [place], [address] Laboratory - Chemistry and C hemistry - challengeOrdered By: Dr. Valderrama on 07-15-2022 ALP [Catalytic activity/Vol] 66 U/L 45-117 [facility] ALT [Catalytic activity/Vol] 34 U/L 16-61 [facility] Globulin (S) [Mass/Vol] 3.3 g/dL 2.2-4.2 [facility] Lipid Profileon 07-15-2022 Cholesterol [Mass/Vol] 88 mg/dL Normal 200 [facility] Comment on above: Result Comment: <200 mg/dL Desirable 200-240 mg/dL Borderline >240 mg/dL High Risk Performed By: #### L 500.4100, L501.9520, L500.4050, L100.0100 ####[facility] [address] [place], [address] Cholesterol in HDL [Mass/Vol] 27 mg/dL Low [facility] Comment on above: Result Comment: The drugs N-Acetylcysteine and Metamizole may falsely depress this assay. Reference Range HDL <40 mg/dL Low HDL Cholesterol HDL >or= 60 mg/dL High HDL Cholesterol Performed By: #### L 500.4100, L501.9520, L500.4050, L100.0100 ####[facility] [address] [place], [address] Cholesterol in LDL [Mass/Vol] 48 mg/dL Normal 0-130 [facility] Comment on above: Performed By: #### L 500.4100, L501.9520, L500.4050, L100.0100 ####[facility] [address] [place], [address] Cholesterol in VLDL [Mass/Vol] 13 mg/dL Normal 5-40 [facility] Comment on above: Performed By: #### L 500.4100, L501.9520, L500.4050, L100.0100 ####[facility] [address] [place], [address] Triglyceride [Mass/Vol] 65 mg/dL Normal [facility] Comment on above: Result Comment: The drugs N-Acetylcysteine and Metamizole may falsely depress this assay. Serum Triglycerides Reference Interval Normal <150 mg/dL Borderline high 150 - 199 mg/dL High 200 - 499 mg/dL Very High > or = 500 mg/dL Performed By: #### L 500.4100, L501.9520, L500.4050, L100.0100 ####[facility] [address] [place], [address] No Panel InformationOrdered By: Dr. Valderrama on 07-15-2022 Thyroid Stimulating Hormone (TSH) 2.51 uIU/mL 0.358-3.74 [facility] Troponin I High Sensitivity 70 pg/mL 3.0-78.0 [facility] Comment on above: Please Note: New Taryn t Units and Gender Specific Reference Ranges. For more information see Policy Stat Procedure [place] High Sensitivity Troponin (TNIH) and attachments. Serum or plasma albumin stacie urement (mass/volume)Ordered By: Dr. Valderrama on 07-15-2022 Albumin [Mass/Vol] 3.3 g/dL 3.2-5.0 [facility] Serum or plasma albumin/glob ulin mass ratioOrdered By: Dr. Valderrama on 07-15-2022 Albumin/Globulin [Mass ratio] 1.0 {ratio} 0.9-2.4 [facility] Serum or plasma cholesterol in HDL measurement (mass/volume)Ordered By: Dr. Valderrama on 07-15-2022 Cholesterol in HDL [Mass/Vol] 27 mg/dL >40 [facility] Comment on above: The drugs N-Acetylcy steine and Metamizole may falsely depress this assay. Reference Range HDL <40 mg/dL Low HDL Cholesterol HDL >or= 60 mg/dL High HDL Cholesterol Serum or plasma cholesterol in VLDL measurement (mass/volume)Ordered By: Dr. Valderrama on 07-15-2022 Cholesterol in VLDL [Mass/Vol] 13 mg/dL 5-40 [facility] Serum or plasma low density lipoprotein (LDL) cholesterol measurement (mass/volume)Ordered By: Dr. Valderrama on 07-15-2022 Cholesterol in LDL [Mass/Vol] 48 mg/dL 0-130 [facility] Thin prep Papanicolaou smear with manual screeningOrdered By: Dr. Valderrama on 07-15-2022 Thin prep Papanicolaou smear with manual screening 33 U/L 15-37 [facility] Thyroid Stim Hormone (TSH)on 07-15-2022 TSH 2.51 uIU/mL Normal 0.358-3.74 [facility] Comment on above: Performed By: #### L 500.4100, L501.9520, L500.4050, L100.0100 ####[facility] [address] [facility] [place], [address] 12 Lead EKGon 07-14-2022 12 Lead EKG [facility] Cardiovascular Services [address] [place] [address] 12 Lead EKG 07/14/22 1718 MR#: [id number] Acct: [id number] Name: SCARLETT LANDRY Rep #: [id number] : 1960 62 From: Whitley Dobson MD Attending Dr: Dr. Khai Ro MD Status: ADM IN Ordering Dr: Marques Moise DO Date: 07/14/22 Location: [facility] Sex: M C Admitted: 07/14/22 Test Reason : SOB Blood Pressure : / mmHG Vent. Rate : 078 BPM Atrial Rate : 078 BPM P-R Int : 128 ms QRS Dur : 134 ms QT Int : 398 ms P-R-T Axes : 017 042 147 degrees QTc Int : 453 ms Sinus rhythm with occasional Premature ventricular complexes Non-specific intra-ventricular conduction block Nonspecific T wave abnormality Abnormal ECG Confirmed by HUSSEIN HUBBARD, SHERIF ([id number]), sound editor ESSIE WEINSTEIN ([id number]) on 07/16/2022 9:52:40 AM Referred By: DK Confirmed By:WALESKA DOBSON MD 07/16/22 0952 Date Whitley Dobson MD CC: Dr. Khai Ro MD; Dr. Marques Moise DO; No Primary Care Physician Signed Normal [facility] Absolute lymphocyte countOrd ered By: Dr. Moise on 07-14-2022 Lymphocytes Auto (Unsp spec) [#/Vol] 2.21 10*3/uL 0.83-4.51 [facility] BNP,B-Type NATRIURETIC PEPTI Paulino 07-14-2022 Natriuretic peptide B (Bld) [Mass/Vol] 896.0 pg/mL High 0-100 [facility] Comment on above: Performed By: #### L 501.4020, L100.0100, L500.2500, L503.6620 #### [facility] [address] [place], [address] Basic Metabolic Profile (BMP )on 07-14-2022 BUN/CRE 17.2 RATIO Normal 10-20 [facility] Comment on above: Order Comment: 'TROP ' Serial specimen #1, #2 or #3: 1 Performed By: #### L 501.4020, L100.0100, L500.2500, L503.6620 #### [facility] [address] [place], [address] CA,Total 9.8 mg/dL Normal 8.5-10.1 [facility] Comment on above: Order Comment: 'TROP ' Serial specimen #1, #2 or #3: 1 Performed By: #### L 501.4020, L100.0100, L500.2500, L503.6620 #### [facility] [address] [place], [address] Chloride [Moles/Vol] 109 mmol/L High 98-107 [facility] Comment on above: Order Comment: 'TROP ' Serial specimen #1, #2 or #3: 1 Performed By: #### L 501.4020, L100.0100, L500.2500, L503.6620 #### [facility] [address] [place], [address] CO2 [Moles/Vol] 28.0 mmol/L Normal 21.0-32.0 [facility] Comment on above: Order Comment: 'TROP ' Serial specimen #1, #2 or #3: 1 Performed By: #### L 501.4020, L100.0100, L500.2500, L503.6620 #### [facility] [address] [place], [address] Creatinine [Mass/Vol] 1.28 mg/dL Normal 0.70-1.30 [facility] Comment on above: Order Comment: 'TROP ' Serial specimen #1, #2 or #3: 1 Result Comment: The validity of the calculated GFR GFRAA in patients over 70 years has not been determined. Clinical correlation is essential. Performed By: #### L 501.4020, L100.0100, L500.2500, L503.6620 #### [facility] [address] [place], [address] ECRCL 62.58 ml/min Normal [facility] Comment on above: Order Comment: 'TROP ' Serial specimen #1, #2 or #3: 1 Performed By: #### L 501.4020, L100.0100, L500.2500, L503.6620 #### [facility] [address] [place], [address] EST GFR - AA 73 mL/min Normal >60 [facility] Comment on above: Order Comment: 'TROP ' Serial specimen #1, #2 or #3: 1 Result Comment: Afri can [place] GFR Calc Performed By: #### L 501.4020, L100.0100, L500.2500, L503.6620 #### [facility] [address] [place], [address] GAP 5 Normal 5-15 [facility] Comment on above: Order Comment: 'TROP ' Serial specimen #1, #2 or #3: 1 Performed By: #### L 501.4020, L100.0100, L500.2500, L503.6620 #### [facility] [address] [place], [address] GFR/1.73 sq M.predicted among non-blacks MDRD (S/P/Bld) [Vol rate/Area] 61 mL/min/{1.73_m2} Normal >60 [facility] Comment on above: Order Comment: 'TROP ' Serial specimen #1, #2 or #3: 1 Result Comment: Non- GFR Calc Performed By: #### L 501.4020, L100.0100, L500.2500, L503.6620 #### [facility] [address] [place], [address] Glucose [Mass/Vol] 87 mg/dL Normal 74-106 [facility] Comment on above: Order Comment: 'TROP ' Serial specimen #1, #2 or #3: 1 Performed By: #### L 501.4020, L100.0100, L500.2500, L503.6620 #### [facility] [address] [place], [address] Potassium [Moles/Vol] 4.2 mmol/L Normal 3.5-5.1 [facility] Comment on above: Order Comment: 'TROP ' Serial specimen #1, #2 or #3: 1 Performed By: #### L 501.4020, L100.0100, L500.2500, L503.6620 #### [facility] [address] [place], [address] Sodium [Moles/Vol] 142 mmol/L Normal 136-145 [facility] Comment on above: Order Comment: 'TROP ' Serial specimen #1, #2 or #3: 1 Performed By: #### L 501.4020, L100.0100, L500.2500, L503.6620 #### [facility] [address] [place], [address] Urea nitrogen [Mass/Vol] 22 mg/dL High 7-18 [facility] Comment on above: Order Comment: 'TROP ' Serial specimen #1, #2 or #3: 1 Performed By: #### L 501.4020, L100.0100, L500.2500, L503.6620 #### [facility] [address] [place], [place], [address] Basophil percentageOrdered B y: Dr. Moise on 07-14-2022 Basophils/100 WBC (Bld) 0.4 % 0-1 [facility] Chloride [Moles/Vol] 109 mmol/L 98-107 [facility] Eosinophils/100 WBC (Bld) 1.1 % 0-5 [facility] Glucose [Mass/Vol] 87 mg/dL 74-106 [facility] Neutrophils (Bld) [#/Vol] 5.7 10*3/uL 2.0-7.7 [facility] Neutrophils/100 WBC (Bld) 62.5 % 47-70 [facility] Potassium [Moles/Vol] 4.2 mmol/L 3.5-5.1 [facility] Sodium [Moles/Vol] 142 mmol/L 136-145 [facility] WBC (Bld) [#/Vol] 9.1 10*3/uL 4.4-11.0 [facility] Blood erythrocytes count (nu mber/volume)Ordered By: Dr. Moise on 07-14-2022 RBC (Bld) [#/Vol] 4.99 10*6/uL 4.6-6.2 [facility] Blood hemoglobin measurement (mass/volume)Ordered By: Dr. Moise on 07-14-2022 Hemoglobin (Bld) [Mass/Vol] 15.4 g/dL 13.0-16.5 [facility] Blood lymphocytes/100 leukoc ytesOrdered By: Dr. Moise on 07-14-2022 Lymphocytes/100 WBC (Bld) 24.4 % 19-41 [facility] Blood monocytes/100 leukocyt esOrdered By: Dr. Moies on 07-14-2022 Monocytes/100 WBC (Bld) 11.4 % 0-10 [facility] Blood platelet mean volumeOr dered By: Dr. Moise on 07-14-2022 Platelet mean volume (Bld) [Entitic vol] 11.7 fL 6.2-12.0 [facility] CBC W/Diff, Automatedon 04-0 3-2022 Absolute Lymph 2.21 X10 3/uL Normal 0.83-4.51 [facility] Comment on above: Performed By: #### L 501.4020, L100.0100, L500.2500, L503.6620 #### [facility] [address] [place], [address] Absolute Neut 5.7 X10 3/uL Normal 2.0-7.7 [facility] Comment on above: Performed By: #### L 501.4020, L100.0100, L500.2500, L503.6620 #### [facility] [address] [place], [address] Basophils/100 WBC (Bld) 0.4 % Normal 0-1 [facility] Comment on above: Performed By: #### L 501.4020, L100.0100, L500.2500, L503.6620 #### [facility] [address] [place], [address] Eosinophils/100 WBC (Bld) 1.1 % Normal 0-5 [facility] Comment on above: Performed By: #### L 501.4020, L100.0100, L500.2500, L503.6620 #### [facility] [address] [place], [address] Erythrocyte distribution width (RBC) [Ratio] 14.0 % Normal 11.6-14.6 [facility] Comment on above: Performed By: #### L 501.4020, L100.0100, L500.2500, L503.6620 #### [facility] [address] [place], [address] Hematocrit (Bld) [Volume fraction] 48.8 % Normal 40-54 [facility] Comment on above: Performed By: #### L 501.4020, L100.0100, L500.2500, L503.6620 #### [facility] [address] [place], [address] Hemoglobin (Bld) [Mass/Vol] 15.4 g/dL Normal 13.0-16.5 [facility] Comment on above: Performed By: #### L 501.4020, L100.0100, L500.2500, L503.6620 #### [facility] [address] [place], [address] IG% 0.200 Normal 0.0-0.9 [facility] Comment on above: Result Comment: IG% - Immature Granulocytes (promyelocytes, myelocytes and metamyelocytes) > 1% indicates that a LEFT SHIFT is Present. Performed By: #### L 501.4020, L100.0100, L500.2500, L503.6620 #### [facility] [address] [place], [address] Lymphocytes/100 WBC (Bld) 24.4 % Normal 19-41 [facility] Comment on above: Performed By: #### L 501.4020, L100.0100, L500.2500, L503.6620 #### [facility] [address] [place], [address] MCH (RBC) [Entitic mass] 30.9 pg Normal 27.0-32.0 [facility] Comment on above: Performed By: #### L 501.4020, L100.0100, L500.2500, L503.6620 #### [facility] [address] [place], [address] MCHC (RBC) [Mass/Vol] 31.6 g/dL Low 32-36 [facility] Comment on above: Performed By: #### L 501.4020, L100.0100, L500.2500, L503.6620 #### [facility] [address] [place], [address] MCV (RBC) [Entitic vol] 97.8 fL High 80-94 [facility] Comment on above: Performed By: #### L 501.4020, L100.0100, L500.2500, L503.6620 #### [facility] [address] [place], [address] Monocytes/100 WBC (Bld) 11.4 % High 0-10 [facility] Comment on above: Performed By: #### L 501.4020, L100.0100, L500.2500, L503.6620 #### [facility] [address] [place], [address] Neutrophils/100 WBC (Bld) 62.5 % Normal 47-70 [facility] Comment on above: Performed By: #### L 501.4020, L100.0100, L500.2500, L503.6620 #### [facility] [address] [place], [address] Nucleated RBC (Bld) [#/Vol] 0 10*3/uL Normal 0-5 [facility] Comment on above: Performed By: #### L 501.4020, L100.0100, L500.2500, L503.6620 #### [facility] [address] [place], [address] Platelet mean volume (Bld) [Entitic vol] 11.7 fL Normal 6.2-12.0 [facility] Comment on above: Performed By: #### L 501.4020, L100.0100, L500.2500, L503.6620 #### [facility] [address] [place], [address] Platelets (Bld) [#/Vol] 238 10*3/uL Normal 150-450 [facility] Comment on above: Performed By: #### L 501.4020, L100.0100, L500.2500, L503.6620 #### [facility] [address] [place], [address] RBC (Bld) [#/Vol] 4.99 10*6/uL Normal 4.6-6.2 [facility] Comment on above: Performed By: #### L 501.4020, L100.0100, L500.2500, L503.6620 #### [facility] [address] [place], [address] RDW SD 50.2 fl High 35.1-43.9 [facility] Comment on above: Performed By: #### L 501.4020, L100.0100, L500.2500, L503.6620 #### [facility] [address] [place], [address] WBC (Bld) [#/Vol] 9.1 10*3/uL Normal 4.4-11.0 [facility] Comment on above: Performed By: #### L 501.4020, L100.0100, L500.2500, L503.6620 #### [facility] [address] [place], [address] DAHLIAOVdavid 07-14-2022 CNOV Office Visit (UCWSTR ) SCARLETT LANDRY ([id number]) 1960 M Date Time Provider Department 07/14/22 3:15 PM MICHELLE FIGUEROA [facility] During your visit today, we recorded the following information about you: Temperature Pulse Respiration Blood pressure 98 degrees 92/minute 18/minute 138/98 Weight 134.7 kg Michelle Figueroa PA-C 07/14/2022 3:05 PM Signed Patient presents to [facility] triage with a chief complaint of shortness of breath and bilateral leg swelling for 2 weeks. Swelling worsened today to where he could not put his boots on. Denies a cough or congestion. No fever. Denies any cardiac history. Does not have a regular physician he sees. Denies chest pain. Has not had leg swelling previously. No history of kidney or liver disease. Recommended the patient be seen in the emergency department. His will take him to [facility]. Vital signs stable here. BP 138/98 Pulse 92 Temp 36.7 ?C (98 ?F) Resp 18 Wt 134.7 kg (297 lb) SpO2 97% Allergies As of Date: 07/14/2022 (No Known Allergies) Date Reviewed: 07/14/2022 Reviewed by: Ingrid Jeffrey LPN - Fully Assessed Reason for Visit: Shortness of Breath [227] Cmt: With swollen legs and feet x 2 weeks Primary Visit Diagnosis:Peripheral edema [R60.9] Other Visit Diagnosis:SOB (shortness of breath) [R06.02] Problem List As Of Date: 07/14/2022 (None) Encounter Status:Closed by MICHELLE FIGUEROA on 07/14/22 Normal [facility] Chest 1 View (Portable)on Chest 1 View (Portable) [facility] Imaging Services [address] [place] [address] Chest 1 View (Portable) MR#: [id number] Acct: [id number] Name: SCARLETT LANDRY Rep #: [id number] : 1960 M 62 From: Steven Meek MD PCP: Care Physician,No Primary Status: REG ER Study: Chest 1 View (Portable) Date of Exam: 07/14/22 Exam# [id number] Ordering Dr: Marques Moise DO STUDY: X-RAY CHEST REASON FOR EXAM: Male, 62 years old. Chest pain TECHNIQUE: Single AP portable view of the chest. COMPARISON: None. FINDINGS: There are monitoring devices. There are mild lower lung increased opacities. There is no demonstrated pleural abnormality. There is moderate cardiac enlargement. Normal mediastinum and jonas. Normal visualized pulmonary arteries. Normal visualized aortic arch and descending thoracic aorta. There are degenerative changes of the visualized thoracic spine. Normal visualized ribs, clavicles, and shoulders. There is no demonstrated abnormality of the visualized soft tissue structures of the upper abdomen. RAD/Chest 1 View (Portable) IMPRESSION: Lower lung edema or infiltrates. Cardiac enlargement. Electronically Signed: Steven Meek MD at 19:26 EDT , CC: Dr. Marques Moise, ; No Primary Care Physician Casing Blower: Signed Normal [facility] Determination of erythrocyte mean corpuscular volume (MCV)Ordered By: Dr. Moise on 07-14-2022 MCV (RBC) [Entitic vol] 97.8 fL 80-94 [facility] Echo Complete W/ Contraston 07-14-2022 Echo Complete W/ Contrast [facility] [address] [place] [address] Echo Complete W/ Contrast 07/15/22 0946 MR#: [id number] Acct: [id number] Name: SCARLETT LANDRY Rep #: [id number] : 1960 62 From: Whitley Dobson MD Attending Dr: Dr. Khai Ro MD Status: ADM IN Ordering Dr: Aren Valderrama MD Date: 07/14/22 Location: U Sex: M C Admitted: 07/14/22 Reason For Study: CHF Procedure This was a 2D Doppler, Color Flow transthoracic echocardiogram. The study was technically difficult. Contrast injection was performed. Exam performed portable in patient room. Left Ventricle Mildly dilated left ventricle. The estimated ejection fraction is 15-20 %. There is severe global hypokinesis of the left ventricle. Right Ventricle Normal RV size. Normal systolic function. Atria The left atrium is mildly enlarged. The right atrium is mildly enlarged. No doppler evidence for ASD. Mitral Valve There is no mitral valve stenosis. Mild (1+) mitral valve insufficiency. Tricuspid Valve There is no tricuspid stenosis. Trivial tricuspid valve insufficiency. Pulmonary artery systolic pressure is 45 mmHg. Aortic Valve Trisinus/trileaflet aortic valve. There is no aortic stenosis. No aortic valve insufficiency. Pulmonic Valve There is no pulmonic valvular stenosis. No pulmonic valve insufficiency. Great Vessels Normal aortic root. Pericardium/Pleural No pericardial effusion. Medication Diluted definity 2ml given slow IV push to enhance endocardial definition. MMode/2D Measurements Calculations LVIDd: 6.3 cm IVSd: 0.86 cm Ao root diam: 4.0 cm LVIDs: 5.7 cm LVPWd: 1.3 cm LA dimension: 4.8 cm RVDd: 5.1 cm FS: 9.5 % LAV(MOD-bp): 120.9 ml LVAd ap4: 54.5 cm2 SV(MOD-sp4): 56.8 ml LAV(MOD-bp) Indexed: 49.3 ml/m2 LVLd ap4: 10.1 cm LAV(MOD-sp2): 111.7 ml EDV(MOD-sp4): 242.5 ml LAV(MOD-sp4): 112.2 ml EDV(sp4-el): 248.8 ml LVAs ap4: 44.9 cm2 LVLs ap4: 9.2 cm ESV(MOD-sp4): 185.6 ml ESV(sp4-el): 185.2 ml EF(MOD-sp4): 23.4 % EF(sp4-el): 25.6 % SV(sp4-el): 63.6 ml LA A4 area: 32.6 cm2 RA A4 area: 27.0 cm2 Time Measurements MV dec time: 0.19 sec Doppler Measurements Calculations MV E max joseph: 98.0 cm/sec Lat Peak E' Joseph: 13.7 cm/sec Med Peak E' Joseph: 6.6 cm/sec MV A max joseph: 34.1 cm/sec E/E' lat: 7.2 E/E' med: 14.9 MV E/A: 2.9 MV V2 max: 109.0 cm/sec MV P1/2t max joseph: 111.3 cm/sec Ao V2 max: 96.9 cm/sec MV max P.8 mmHg MV P1/2t: 82.3 msec Ao max P.8 mmHg MV V2 mean: 51.3 cm/sec MV mean P.4 mmHg MV dec slope: 396.4 cm/sec2 MV V2 VTI: 26.2 cm MVA(P1/2t): 2.7 cm2 LV V1 max: 93.0 cm/sec PA V2 max: 66.5 cm/sec LV V1 max P.5 mmHg PI dec slope: 381.6 cm/sec2 TR max joseph: 307.8 cm/sec TR max P.9 mmHg ECHO/Echo Complete W/ Contrast Interpretation Summary The estimated ejection fraction is 15-20 %. There is severe global hypokinesis of the left ventricle. The left atrium is mildly enlarged. The right atrium is mildly enlarged. Mild (1+) mitral valve insufficiency. Ordering Physician: Aren Valderrama Referring Physician: Moreno PCP Performed By: Emerson Sow RCS 07/15/222 Date Whitley Dobson MD CC: Dr. Khai Ro MD; Dr. Aren Valderrama MD; No Primary Care Physician Date Dictated: 07/15/2246 Date Transcribed: 07/15/221611 Casing Blower: Signed Normal [facility] Emergency Department Summary on 07-14-2022 Emergency Department Summary [facility] Medical Records Department [address] [place] [address] Emergency Department Summary 07/14/22 MR#: [id number] Acct: [id number] Name: SCARLETT LANDRY Rep #: [id number] : 1960 62 From: Marques Moise DO PCP: Care Physician,No Primary Status:ADM IN Location: [address] History of Present Illness Chief Complaint: Shortness of Breath Narrative Narrative: 62-year-old male presenting with shortness of breath with exertion, orthopnea, lower extremity swelling. He states he has no medical problems. He has not seen a doctor in 20 years. He denies having chest pain. He has not had fever, chills, cough. PFSH PFSH Medical History no medical history Home Medications NK 07/14/22 [History Last Taken Unknown] Allergy/AdvReac Type Severity Reaction Status Date / Time No Known Allergies Allergy Verified 07/14/22 15:27 Family History (Updated 07/14/22 @ 20:[address] Aren Valderrama MD) Other COPD (chronic obstructive pulmonary disease) Heart disease Surgical History no surgical history Social History Smoking Status: Former smoker ROS ROS ED Constitutional Constitutional ED: Denies chills or fever(s) Eyes Eyes: Denies change in vision or diplopia ENT ENT ED: Denies rhinorrhea or sore throat Cardiovascular Cardiovascular: Reports orthopnea; Denies chest pain or palpitations Respiratory/Chest Respiratory/Chest: Reports dyspnea, dyspnea on exertion and orthopnea Gastrointestinal Gastrointestinal: Reports other Details: Abdominal swelling ; Denies nausea or vomiting Genitourinary Genitourinary ED: Denies dysuria Musculoskeletal Musculoskeletal: Denies arthralgias Integumentary Denies abscess or Abrasions Neurologic Neurologic: Denies headache(s) or paresthesias Psychiatric Psychiatric: Denies anxiety or depression EXAM Physical Exam Const Vital Signs: 07/14/22 15:25 07/14/22 17:04 07/14/22 17:06 Temperature 98 F Temperature Source Temporal Pulse Rate 81 90 Respiratory Rate 18 20 H Respiratory Effort Normal Respiratory Pattern Normal Blood Pressure 150/120 H 150/109 H Blood Pressure Mean 130 122 Pulse Ox 95 94 Oxygen Delivery Method Room Air Room Air 07/14/22 17:24 07/14/22 19:04 Temperature Temperature Source Pulse Rate 70 Respiratory Rate 16 Respiratory Effort Respiratory Pattern Blood Pressure 159/113 H Blood Pressure Mean 128 Pulse Ox 97 Oxygen Delivery Method Room Air Positive well nourished and obese Nutritional Appearance: obese HEENT Reports moist mucous membranes atraumatic Eyes PERRL and EOMs intact bilaterally Neck no lymphadenopathy Resp normal respiratory effort and clear to auscultation bilaterally Auscultation: Negative for rales, rhonchi or wheezes Cardio regular rate and regular rhythm GI non-tender Back/Spine no CVA tenderness Extremity General Extremety ED: Yes edema General Extremity: edema Neuro oriented x3 and CN's II-XII intact bilaterally Sensorium / Orientation: alert Motor Exam: strength 5/5 throughout Psych mental status grossly normal Skin no wounds MDM MDM MDM Narrative Medical decision making narrative: 62-year-old male with shortness of breath, increased abdominal girth, lower extremity edema. Presentation is consistent with CHF. He does not have any chest pain. Blood work was obtained and his CBC is unremarkable. Renal function and electrolytes also unremarkable. High-sensitivity troponin 73. BNP 896.0. Chest x-ray on my interpretation consistent with CHF. EKG sinus rhythm at 78 bpm with PVCs. Patient was given 40 mg Lasix IV. I discussed with the hospitalist for admission. Impression: 1. New onset CHF Lab Data Labs: Laboratory Results - last 24 hr 07/14/22 07/14/22 07/14/22 17:15 17:15 17:15 WBC 9.1 RBC 4.99 Hgb 15.4 Hct 48.8 MCV 97.8 H MCH 30.9 MCHC 31.6 L RDW Std Deviation 50.2 H RDW Coeff of Paz 14.0 Plt Count 238 MPV 11.7 Immature Gran % (Auto) 0.200 Neut % (Auto) 62.5 Lymph % (Auto) 24.4 [place] % (Auto) 11.4 H Eos % (Auto) 1.1 Baso % (Auto) 0.4 Absolute Neuts (auto) 5.7 Absolute Lymphs (auto) 2.21 Nucleated RBC % 0 Sodium 142 Potassium 4.2 Chloride 109 H Carbon Dioxide 28.0 Anion Gap 5 BUN 22 H Creatinine 1.28 Estim Creat Clear Calc 62.58 Est GFR (MDRD) Af Amer 73 Est GFR (MDRD) Non-Af 61 BUN/Creatinine Ratio 17.2 Glucose 87 Calcium 9.8 Troponin I High Sens 73 B-Natriuretic Peptide 896.0 H Radiography Diagnostic Testing: Clinical Impression(s) from Imaging Studies Chest X-Ray 07/14/22 17:40 IMPRESSION: Lower lung edema or in (more content not included)... Normal [facility]P Exam - Hospitalist [facility] Medical Records Department [address] [place] [address] H P Exam - Hospitalist 07/14/221940 MR#: [id number] Acct: [id number] Name: SCARLETT LANDRY Rep #: [id number] : 1960 62 From: Aren Valderrama MD PCP: Care Physician,No Primary Status:ADM IN Location: [facility] [id number] HPI - General General Date of Admission: 07/14/22 Date of Service: 07/14/22 Chief Complaint: Dyspnea on exertion HPI Narrative SCARLETT LANDRY, is a 62 M with a significant history of previous alcoholism; former tobacco use and who saw a doctor bout 20 years ago presenting to the emergency department with 2 and half week history of progressively worsening dyspnea on exertion. Associated with symptom is orthopnea; paroxysmal nocturnal dyspnea; bilateral lower extremity swelling and lower abdominal swelling. Also he reports fatigue and decreased appetite. His legs have been so much swelling that he had trouble putting his work boots on. 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 PFSH Medical History no medical history no medical history Home Medications NK 07/14/22 [History Last Taken Unknown] Allergy/AdvReac Type Severity Reaction Status Date / Time No Known Allergies Allergy Verified 07/14/22 15:27 Family History (Updated 07/14/22 @ 20:[address] Aren Valderrama MD) Other COPD (chronic obstructive pulmonary disease) Heart disease Surgical History no surgical history no surgical history Social History Smoking Status: Former smoker ROS ROS Narrative Pertinent positives and pertinent negatives as noted in HPI. All other systems were reviewed and are negative Vital Signs Vital Signs Vital Signs: 07/14/22 15:25 07/14/22 17:04 07/14/22 17:06 Temperature 98 F Temperature Source Temporal Pulse Rate 81 90 Respiratory Rate 18 20 H Respiratory Effort Normal Respiratory Pattern Normal Blood Pressure 150/120 H 150/109 H Blood Pressure Mean 130 122 Pulse Ox 95 94 Oxygen Delivery Method Room Air Room Air 07/14/22 17:24 07/14/22 19:04 Temperature Temperature Source Pulse Rate 70 Respiratory Rate 16 Respiratory Effort Respiratory Pattern Blood Pressure 159/113 H Blood Pressure Mean 128 Pulse Ox 97 Oxygen Delivery Method Room Air Weight Weight: 134.745 kg Body Mass Index (BMI) 42.6 Physical Exam Narrative Physical exam: General: Well-nourished, well-developed. Head: Normocephalic, atraumatic, no tenderness Eyes: Vision is grossly intact. EOMI ENT, no trauma, moist mucous membranes, no rhinorrhea Neck: Nontender, No thyromegaly. CVS: Regular rate and rhythm. S1-S2 present. No murmur, gallop or rub. Respiratory : Diminished; bilaterally, chest wall nontender Abdomen: Soft, nontender, nondistended, normal bowel sounds. Edema of lower abdomen : Deferred Back: Nontender, no CVA tenderness, no midline spinal tenderness, deformities, step-offs Extremities: Nontender full range of motion, no trauma. Bilateral lower extremity edema 3+ Skin: Normal color, no trauma, abrasions Neuro: Alert, oriented, cranial nerves II through XII grossly intact. Psychiatry: Normal mood. Normal affect. Not depressed. Not anxious. Results Lab / Micro Data Result Diagrams: 07/14/22 17:15 07/14/22 17:15 Labs: Laboratory Results - last 24 hr 07/14/22 17:15: WBC 9.1, RBC 4.99, Hgb 15.4, Hct 48.8, MCV 97.8 H, MCH 30.9, MCHC 31.6 L, RDW Std Deviation 50.2 H, RDW Coeff of Paz 14.0, Plt Count 238, MPV 11.7, Immature Gran % (Auto) 0.200, Neut % (Auto) 62.5, Lymph % (Auto) 24.4, [place] % (Auto) 11.4 H, Eos % (Auto) 1.1, Baso % (Auto) 0.4, Absolute Neuts (auto) 5.7, Absolute Lymphs (auto) 2.21, Nucleated RBC % 0 07/14/22 17:15: Sodium 142, Potassium 4.2, Chloride 109 H, Carbon Dioxide 28.0, Anion Gap 5, BUN 22 H, Creatinine 1.28, Estim Creat Clear Calc 62.58, Est GFR (MDRD) Af Amer 73, Est GFR (MDRD) Non-Af 61, BUN/Creatinine Ratio 17.2, Glucose 87, Calcium 9.8, Troponin I High Sens 73 07/14/22 17:15: B-Natriuretic Peptide 896.0 H Radiology Impression Chest X-Ray 07/14/22 17:40 IMPRESSION: Lower lung edema or infiltrates. Cardiac enlargement. Electronically Signed: Steven Meek MD at 19:26 EDT , Assessment Plan Assessment/Plan (1) Congestive heart failure (CHF): (2) Elevated blood pressure reading: (3) Morbid obesity due to excess calories: PLAN: Plan Acute heart failure New onset Place on monitored bed on PCU Weight on admission to the floor; and then daily Strict I O's Chest x-ray was visualized and independently (more content not included)... Normal [facility] Hematocrit Auto (Bld) [Volum e fraction]Ordered By: Dr. Moise on 07-14-2022 Hematocrit (Bld) [Volume fraction] 48.8 % 40-54 [facility] L501.4020on 07-14-2022 TROPONIN-I HS 73 pg/mL Normal 3.0-78.0 [facility] Comment on above: Order Comment: 'TROP ' Serial specimen #1, #2 or #3: 1 Result Comment: Minh zuniga Note: New Test Units and Gender Specific Reference Ranges. For more information see Policy Stat Procedure [place] High Sensitivity Troponin (TNIH) and attachments. Performed By: #### L 501.4020, L100.0100, L500.2500, L503.6620 #### [facility] [address] [place] [address]. [place], [address] Laboratory - Chemistry and C hemistry - challengeOrdered By: Dr. Moise on 07-14-2022 CO2 [Moles/Vol] 28.0 mmol/L 21.0-32.0 [facility] Natriuretic peptide B (Bld) [Mass/Vol] 896.0 pg/mL 0-100 [facility] Urea nitrogen/Creatinine [Mass ratio] 17.2 mg/mg 10-20 [facility] Laboratory - Hematology and Cell countsOrdered By: Dr. Moise on 07-14-2022 Erythrocyte distribution width (RBC) [Entitic vol] 50.2 fL 35.1-43.9 [facility] Erythrocyte distribution width (RBC) [Ratio] 14.0 % 11.6-14.6 [facility] Immature granulocytes/100 WBC (Bld) 0.200 % 0.0-0.9 [facility] Comment on above: IG% - Immature Granu locytes (promyelocytes, myelocytes and metamyelocytes) > 1% indicates that a LEFT SHIFT is Present. MCH (RBC) [Entitic mass] 30.9 pg 27.0-32.0 [facility] Nucleated RBC/100 WBC (Bld) [Ratio] 0 % 0-5 [facility] MCHC Auto (RBC) [Mass/Vol]Or dered By: Dr. Moise on 07-14-2022 MCHC (RBC) [Mass/Vol] 31.6 g/dL 32-36 [facility] No Panel InformationOrdered By: Dr. Moise on 07-14-2022 Estimated Creatinine Clearance Calc 62.58 ml/min [facility] Estimated GFR (MDRD) Amer 73 mL/min >60 [facility] Comment on above: GFR Calc Estimated GFR (MDRD) Non-Af Amer 61 mL/min >60 [facility] Comment on above: Non- GFR Calc Troponin I High Sensitivity 73 pg/mL 3.0-78.0 [facility] Comment on above: Please Note: New Taryn t Units and Gender Specific Reference Ranges. For more information see Policy Stat Procedure [place] High Sensitivity Troponin (TNIH) and attachments. Platelets bldOrdered By: Dr. Moise on 07-14-2022 Platelets (Bld) [#/Vol] 238 10*3/uL 150-450 [facility] Serum or plasma calcium stacie urement (mass/volume)Ordered By: Dr. Moise on 07-14-2022 Calcium [Mass/Vol] 9.8 mg/dL 8.5-10.1 [facility] Serum or plasma creatinine m easurement (mass/volume)Ordered By: Dr. Moise on 07-14-2022 Creatinine [Mass/Vol] 1.28 mg/dL 0.70-1.30 [facility] Comment on above: The validity of the calculated GFR & GFRAA in patients over 70 years has not been determined. Clinical correlation is essential. Serum or plasma urea nitroge n measurement (mass/volume)Ordered By: Dr. Moise on 07-14-2022 Urea nitrogen [Mass/Vol] 22 mg/dL 7- [facility] Thin prep Papanicolaou smear with manual screeningOrdered By: Dr. Moise on 07-14-2022 Thin prep Papanicolaou smear with manual screening 5 -15 [facility] Vital Signs Date Time Vital Sign Value Performing Clinician Facility 07-30-2022 09:37-0400 Body height 177.[address] Marques Moise Work Phone: [facility] 07-30-2022 09:37-0400 Body mass index (BMI) [Ratio] 36.7 kg/m2 Dr. Marques Moise Work Phone: [phone] [place] [address] 07-30-2022 09:37-0400 Body weight 116.[address] Marques Moise Work Phone: [facility] 07-30-2022 09:37-0400 Diastolic blood pressure 79 mm[Hg] Dr. Marques Moise Work Phone: [facility] 07-30-2022 09:37-0400 Heart rate 71 /min Dr. Marques Moise Work Phone: [phone] [place] [address] 07-30-2022 09:37-0400 Respiratory rate 18 /min Dr. Marques Moise Work Phone: [facility] 07-30-2022 09:37-0400 Systolic blood pressure 114 mm[Hg] Dr. Marques Moise Work Phone: [facility] 07-16-2022 15:44-0400 Body temperature 97.5 [degF] Dr. Marques Moise Work Phone: [facility] 07-16-2022 15:44-0400 Diastolic blood pressure 90 mm[Hg] Dr. Marques Moise Work Phone: [facility] 07-16-2022 15:44-0400 Heart rate 77 /min Dr. Marques Moise Work Phone: [facility] 07-16-2022 15:44-0400 Respiratory rate 18 /min Dr. Marques Moise Work Phone: [facility] 07-16-2022 15:44-0400 SaO2% (BldA) [Mass fraction] 97 % Dr. Marques Moise Work Phone: [facility] 07-16-2022 15:44-0400 Systolic blood pressure 131 mm[Hg] Dr. Marques Moise Work Phone: [facility] 07-16-2022 06:00-0400 Body mass index (BMI) [Ratio] 39.6 kg/m2 Dr. Marques Moise Work Phone: [facility] 07-16-2022 06:00-0400 Body weight 125.[address] Marques Moise Work Phone: [facility] 07-15-2022 12:01-0400 Body height 177.[address] Marques Moise Work Phone: [facility] 07-14-2022 19:55-0400 Body temperature 98.3 [degF] [facility] 07-14-2022 19:55-0400 Diastolic blood pressure 90 mm[Hg] [facility] 07-14-2022 19:55-0400 Heart rate 77 /min [facility] 07-14-2022 19:55-0400 Respiratory rate 18 /min [facility] 07-14-2022 19:55-0400 SaO2% (BldA) [Mass fraction] 98 % [facility] 07-14-2022 19:55-0400 Systolic blood pressure 160 mm[Hg] [facility] 07-14-2022 15:25-0400 Body height 177.8 cm [facility] 07-14-2022 15:25-0400 Body mass index (BMI) [Ratio] 42.6 kg/m2 [facility] 07-14-2022 15:25-0400 Body weight 134.74 kg [facility] 07-14-2022 14:55-0400 Body temperature 98.01 [degF] Michelle Figueroa PA-C Work Phone: [facility] 07-14-2022 14:55-0400 Body weight 134.72 kg Michelle Athy PA-C Work Phone: [facility] 07-14-2022 14:55-0400 Diastolic blood pressure 98 mm[Hg] Michelle Athy PA-C Work Phone: [facility] 07-14-2022 14:55-0400 Heart rate 92 /min Michelle Athy PA-C Work Phone: [facility] 07-14-2022 14:55-0400 Respiratory rate 18 /min Michelle Athy PA-C Work Phone: [facility] 07-14-2022 14:55-0400 SaO2% (BldA) [Mass fraction] 97 % Michellejavi Johnsony PA-C Work Phone: [facility] 07-14-2022 14:55-0400 Systolic blood pressure 138 mm[Hg] Michelle Johnsony PA-C Work Phone: [facility] Encounters Encounter Date Encounter Type Care Provider Facility Start: 10-30-2022 ambulatory Benito Haywood TRIBAL JUDGE Facility :[facility] Start: 10-30-2022 Non-patient / Non-visit Dr. Ramírez Work Phone: [facility] Work Phone: Start: 10-29-2022 ambulatory Tim Paul Facility:[facility] Start: 10-29-2022 Non-patient / Non-visit Dr. Ramírez Work Phone: [facility] Start: 10-29-2022 End: 10-29-[address] Marques Moise Work Phone: [facility] Work Phone: Start: 10-29-2022 End: 10-29-[address] [facility] Start: 08-11-2022 ambulatory Benito Haywood TRIBAL JUDGE Facility :[facility] Start: 08-11-2022 Non-patient / Non-visit Dr. Ramírez Work Phone: [facility] Start: 08-07-2022 End: 08-07-[address] Marques Moise Work Phone: [facility] Work Phone: Start: 08-07-2022 End: 08-07-[address] Marques Moise Work Phone: [facility] Start: 08-07-2022 Non-patient / Non-visit Dr. Ramírez Work Phone: [facility] Start: 07-30-2022 End: 07-30-2022 ambulatory Benito Haywood NP Facility:[facility] Start: 07-30-2022 End: 07-30-[address] Marques Moise Work Phone: [facility] Start: 07-16-2022 Non-patient / Non-visit Dr. Ramírez Work Phone: [facility] Start: 07-16-2022 Non-patient / Non-visit Dr. Ramírez Work Phone: [facility] Start: 07-15-2022 ambulatory No Primary Car e Physician Facility:[facility] Start: 07-15-2022 Non-patient / Non-visit Dr. Ramírez Work Phone: [facility] Start: 07-15-2022 Non-patient / Non-visit Dr. Ramírez Work Phone: [facility] Start: 07-14-2022 ambulatory No Primary Car e Physician Facility:[facility] Start: 07-14-2022 End: 07-16-2022 Evaluation and management of inpatient No Primary Care Physician Facility:[facility] Start: 07-14-2022 End: 07-16-2022 Evaluation and management of inpatient [facility] Start: 07-14-2022 End: 07-14-2022 ambulatory Facility:[facility] Start: 07-14-2022 End: 07-14-2022 Patient encounter procedure Michelle Figueroa PA-C Work Phone: [facility] Comment on above: Peripheral edema (Pr imary Dx); SOB (shortness of breath) Procedures Date Procedure Procedure Detail Performing Clinician Start: 08-07-2022 Cardiovascular stres s test using pharmacologic stress agent Dr. Marques Moise Work Phone: Start: 07-14-2022 Plain chest X-ray Plan of Treatment Date Care Activity Detail Author Start: 12-12-2022 Influenza vaccination INFLUENZA (Season Ended) [facility] Start: 07-16-[address] [facility] Start: 07-16-2022 Referral to assistant real estate manager [facility] Start: 07-16-2022 [facility] Start: 07-14-2022 Following clinical pathway protocol [facility] Start: 07-14-2022 Application of elastic bandage [facility] Start: 07-14-2022 Assessment of risk of venous thromboembolism [facility] Start: 07-14-2022 Catheterization of vein [facility] Start: 07-14-2022 Elevation of affected extremity [facility] Start: 07-14-2022 Insertion of catheter into peripheral vein [facility] Start: 07-14-2022 Measuring intake and output [facility] Start: 07-14-2022 Notification of physician [facility] Start: 07-14-[address] [facility] Start: 07-14-[address] [facility] Start: 07-14-2022 Providing care according to standard [facility] Start: 07-14-2022 Provision of activity privileges [facility] Start: 07-14-2022 [facility] Start: 07-14-[address] [facility] Start: 07-14-[address] [facility] Start: 07-14-2022 [facility] Start: 04-13-2022 DEPRESSION ASSESSMENT DEPRESSION ASSESSMENT [facility] Start: 01-30-2016 PROSTATE CANCER SCREENING DISCUSSION PROSTATE CANCER SCREENING DISCUSSION [facility] Start: 2011 SHINGRIX VACCINE (1 of 2) SHINGRIX VACCINE (1 of 2) [facility] Start: 2006 COLOGUARD (FIT-DNA) COLOGUARD (FIT-DNA) [facility] Start: 2006 Colonoscopy COLONOSCOPY [facility] Start: 2006 COLORECTAL CANCER SCREENING COLORECTAL CANCER SCREENING [facility] Start: [address] COLONOGRAPHY [facility] Start: 2006 DIABETES SCREEN DIABETES SCREEN [facility] Start: 2006 FECAL OCCULT BLOOD FECAL OCCULT BLOOD [facility] Start: 2006 SIGMOIDOSCOPY SIGMOIDOSCOPY [facility] Start: 01-30-1996 LIPID SCREEN LIPID SCREEN [facility] Start: 01-30-1980 Urine microalbumin profile DTAP,TDAP,TD (1 - Tdap) [facility] Start: 1979 HEPATITIS C SCREENING HEPATITIS C SCREENING [facility] Start: 1979 HIV SCREENING HIV SCREENING [facility] Start: 1960 COVID-19 VACCINE (#1) COVID-19 VACCINE (#1) [facility] Patient referral [facility] Work Phone: [employer] [facility] Payers Date Payer Category Payer Self-pay [id number] 2022 Self-pay Unknown [id number] 2.16.8 [id number] Unknown [id number] 2.16.8 [id number] Unknown [id number] 2.16.8 [id number] Unknown [id number] 2.16.8 [id number] Unknown [id number] 2.16.8 [id number] Unknown [id number] 2.16.8 [id number] Unknown [id number] 2.16.8 [id number] Unknown [id number] 2.16.8 [id number] Unknown [id number] 2.16.8 [id number] Unknown [id number] 2.16.8 [id number] Unknown [id number] 2.16.8 [id number] Unknown [id number] 2.16.8 [id number] Unknown [id number] 2.16.8 [id number] Social History Date Type Detail Facility Start: 07-14-2022 End: 07-30-2022 Tobacco smoking status ALIS Unknown if ever smoked [facility] Start: 1960 Sex Assigned At Male [facility] Start: 07-14-2022 [facility] History of tobacco use Current smoker [facility] History of tobacco use Cigarette Smoker [facility] Start: 07-14-2022 Tobacco use and exposure Smokeless tobacco non-user [facility] Start: 07-14-2022 Alcohol intake Not Asked [facility] Start: 1960 Sex Assigned At Not on file C [facility] Goals Date Patient Goal Desired Activity /State Functional Status Date Assessment Result Facility 07-16-2022 Functional status Ambulates [facility] Work Phone: Mental Status Date Assessment Result Facility 07-16-2022 Cognitive function Voice/Name [facility] Work Phone: 07-14-2022 Cognitive function Level Of Cons ciousness Awake;Alert;Appropriate;Follow s Commands [facility] Work Phone: Clinical Notes 07-14-2022 to 07-16-2022 Note Date & Type Note Facility 07-16-2022 Discharge summary Note Date/Time July 16, 2022 2:01 pm [facility] Medical Records Department [address] [place] [address] Discharge Summary 07/16/22 1359 MR#: [id number] Acct: [id number] Name: SCARLETT LANDRY Rep #:[id number] : 1960 62 From: Khai Ro MD PCP: Care Physician,No Primary Status :ADM IN Location: [facility] PAN309- [id number] Providers Date of Admission: 07/14/22 Date of Discharge: 07/16/22 Primary Care Physician: Moreno Primary Care Phys Consultations 07/16/22 07:39 Consult: Cardiology Routine Consulting Provider: Tim Miller Reason for Consult: New Onset CHF EMERGENT Consult: No MD Notified: Yes Date Notified: 07/16/22 Time Notified: 07:39 Method of Notification: Verbal Reason For Visit: ACUTE HEART FAILURE Diagnosis Discharge Diagnosis (1) Congestive heart failure (CHF): Status: Acute Code(s): I50.9 - Heart failure, unspecified Qualifiers: Heart failure type: systolic Heart failure chronicity: acute QualifiedCode(s): I50.21 - Acute systolic (congestive) heart failure (2) Elevated blood pressure reading: Status: Acute Code(s): R03.0 - Elevated blood-pressure reading, without diagnosis of hypertension (3) Morbid obesity due to excess calories: Status: Acute Code(s): E66.01 - Morbid (severe) obesity due to excess calories Plan Patient is a 62-year-old gentleman with no chronic medical problems presented with 2-week history of progressive shortness of breath with bilateral pedal edema and assessment of new onset congestive heart failure made admitted to a monitored bed for further management 1. Acute congestive heart failure with decreased ejection fraction 2D echo has been ordered to assess EF. Patient placed on strict input and output, daily weight, IV diuretics as well as fluid restriction in addition to low-sodium diet. Patient response to therapy being monitored with daily weightsas well as input and output ?07/16/2022. 2D echo obtained on 07/15/2022 is as below. The estimated ejection fraction is 15-20 %. There is severe global hypokinesis of the left ventricle. The left atrium is mildly enlarged. The right atrium is mildly enlarged. Mild (1+) mitral valve insufficiency. ?Based on patient's significant cardiomyopathy consultation was placed to cardiology to evaluate for possible coronary artery disease. Case was discussedwith Dr. Miller with cardiology 2. Elevated blood pressure ? Patient does not have history of hypertension given his presentation patient was started on lisinopril 3. Class III obesity with BMI of 42 ? Weight loss advised 4. Hypokalemia -Corrected per protocol, repeat potassium levels ordered for monitoring 5. Impaired kidney function ? Following patient diuresis adjusted patient Lasix dose 6. DVT prophylaxis - On enoxaparin Time spent in the patient's overall evaluation,decision-making process, review of diagnostic data, adjustment of management, discussion with other providers, nursing nursing and ancillary staff involved in patient's care documentation, 55Minutes Medications at Discharge Home Medications carvedilol 3.125 mg tablet 3.125 mg PO BID 60 days #120 tabs 07/16/22 empagliflozin 10 mg tablet (Jardiance) 10 mg PO DAILY 60 days #60 tabs 07/16/22 furosemide 40 mg tablet (Lasix) 40 mg PO DAILY #60 tabs 07/16/22 lisinopril 5 mg tablet 5 mg PO BID 60 days #120 tabs 07/16/22 potassium chloride 20 mEq tablet,extended release(part/cryst) (Klor-Con M) 20 meq PO DAILYCM 60 days #60 tabs 07/16/22 Hospital Course Summary of Care Provided Minutes Spent on Discharge: 55 Physical Exam Narrative GENERAL: cooperative HEENT: Atraumatic; normocephalic EYES; Anicteric, Normal Conjunctiva NECK; supple, normal thyroid, RESPIRATORY: Diminished to auscultation CARDIOVASCULAR: Regular S1 S2, GI: soft, normoactive bowel sounds, : No Renal angle tenderness; EXTREMITIES: edema, no clubbing, MUSCULOSKELETAL: no muscle wasting NEURO: Awake; no lateralizing signs. SKIN: No Rash PSYCH; Flat affect Weight / BMI Weight Weight: 125.3 kg Body Mass Index (BMI) 39.6 ABG / Lab / Microbiology Data Result Diagrams: 07/16/22 04:53 07/16/22 04:53 Laboratory: Laboratory Results - last 24 hr 07/16/22 04:53: WBC 8.7, RBC 4.81, Hgb 14.4, Hct 46.8, MCV 97.3 H, MCH 29.9, MCHC 30.8 L, RDW Std Deviation 49.5 H, RDW Coeff of Paz 13.7, Plt Count 215, MPV11.3, Immature Gran % (Auto) 0.200, Neut % (Auto) 60.9, Lymph % (Auto) 23.7, [place] % (Auto) 12.6 H, Eos % (Auto) 2.1, Baso % (Auto) 0.5, Absolute Neuts (auto)5.3, Absolute Lymphs (auto) 2.05, Nucleated RBC % 0 07/16/22 04:53: Sodium 140, Potassium 3.4 L, Chloride 105, Carbon Dioxide 31.0, Anion Gap 4 L, BUN 25 H, Creatinine 1.42 H, Estim Creat Clear Calc 56.41, Est GFR (MDRD) Af Amer 65, Est GFR (MDRD) Non-Af 54 L, BUN/Creatinine Ratio 17.6, Glucose 90, Calcium 9.5, Phosphorus 3.8, Magnesium 2.2 Radiography Diagnostic Testing: Radiology Impression Echocardiogram 07/14/22 21:37 Interpretation Summary The estimated ejection fraction is 15-20 %. There is severe global hypokinesis of the left ventricle. The left atrium is mildly enlarged. The right atrium is mildly enlarged. Mild (1+) mitral valve insufficiency. Ordering Physician: Aren Valderrama Referring Physician: Moreno PCP Performed By: Emerson Sow RCS D/C Instructions Discharge Diet: 8 Cup Fluid Restriction and 2000 mg Sodium Diet Discharge Activity: Return to Normal Activity Call your doctor if you observe: Fever of 101 or Higher, Shortness of breath, Fainting spells and Chest pain Meaningful Use Info Meaningful Use Diagnoses (Choose all that apply): CHF CHF CRUZ/ARB ordered at discharge?: Yes Documented LVEF (%): 20 Discharge Plan Admission Admit Date/Time: 07/14/22 19:47 Attending Provider: Khai Ro Primary Care Provider: Care Physician,No Primary Consulting Providers: Aren Valderrama ; Tim Miller Discharge Orders/Prescriptions Prescriptions: New carvedilol 3.125 mg Tablet 3.125 mg PO BID 60 Days Qty: 120 0RF potassium chloride [Klor-Con M20] 20 mEq Tablet,Er Particles/Crystals 20 meq PO DAILYCM 60 Days Qty: 60 0RF lisinopril 5 mg Tablet 5 mg PO BID 60 Days Qty: 120 0RF Jardiance 10 mg Tablet 10 mg PO DAILY 60 Days Qty: 60 0RF furosemide [Lasix] 40 mg tablet 40 mg PO DAILY Qty: 60 0RF Referrals / Follow Up: Tim Miller MD [Med Staff - Active Staff] - Within 2 Weeks Care Physician,No Primary [Primary Care Provider] - NOT,DEFINED [Non-Staff] - Disposition Disposition (needs filled in before D/C Order can be placed): Home, Self Care Charges/Coding Visit Charges Inpatient E&M: 16601 Disch Hosp >30min 07/16/22 1401 <Electronically signed by Khai Ro MD> Cosigner Signature (if applicable): CC: Dr. Khai Ro MD; No Primary Care Physician~ Signed [facility] Work Phone: [phone]) 232-170004-05-2023 [facility] Medical Records Department [address] [place] [address] Discharge Summary 07/16/22 1359 MR#: [id number] Acct: [id number] Name: SCARLETT LANDRY Rep #: [id number] : 1960 62 From: Khai Ro MD PCP: Care Physician,No Primary Status:ADM IN Location: [place] [address] Providers Date of Admission: 07/14/22 Date of Discharge: 07/16/22 Primary Care Physician: No Primary Care Phys Consultations 07/16/22 07:39 Consult: Cardiology Routine Consulting Provider: Tim Miller Reason for Consult: New Onset CHF EMERGENT Consult: No MD Notified: Yes Date Notified: 07/16/22 Time Notified: 07:39 Method of Notification: Verbal Reason For Visit: ACUTE HEART FAILURE Diagnosis Discharge Diagnosis (1) Congestive heart failure (CHF): Status: Acute Code(s): I50.9 - Heart failure, unspecified Qualifiers: Heart failure type: systolic Heart failure chronicity: acute Qualified Code(s): I50.21 - Acute systolic (congestive) heart failure (2) Elevated blood pressure reading: Status: Acute Code(s): R03.0 - Elevated blood-pressure reading, without diagnosis of hypertension (3) Morbid obesity due to excess calories: Status: Acute Code(s): E66.01 - Morbid (severe) obesity due to excess calories Plan Patient is a 62-year-old gentleman with no chronic medical problems presented with 2-week history of progressive shortness of breath with bilateral pedal edema and assessment of new onset congestive heart failure made admitted to a monitored bed for further management 1. Acute congestive heart failure with decreased ejection fraction 2D echo has been ordered to assess EF. Patient placed on strict input and output, daily weight, IV diuretics as well as fluid restriction in addition to low-sodium diet. Patient response to therapy being monitored with daily weights as well as input and output ???07/16/2022. 2D echo obtained on 07/15/2022 is as below. The estimated ejection fraction is 15-20 %. There is severe global hypokinesis of the left ventricle. The left atrium is mildly enlarged. The right atrium is mildly enlarged. Mild (1+) mitral valve insufficiency. ???Based on patient's significant cardiomyopathy consultation was placed to cardiology to evaluate for possible coronary artery disease. Case was discussed with Dr. Miller with cardiology 2. Elevated blood pressure ??? Patient does not have history of hypertension given his presentation patient was started on lisinopril 3. Class III obesity with BMI of 42 ??? Weight loss advised 4. Hypokalemia -Corrected per protocol, repeat potassium levels ordered for monitoring 5. Impaired kidney function ??? Following patient diuresis adjusted patient Lasix dose 6. DVT prophylaxis - On enoxaparin Time spent in the patient's overall evaluation,decision-making process, review of diagnostic data, adjustment of management, discussion with other providers, nursing nursing and ancillary staff involved in patient's care documentation, 55 Minutes Medications at Discharge Home Medications carvedilol 3.125 mg tablet 3.125 mg PO BID 60 days #120 tabs 07/16/22 empagliflozin 10 mg tablet (Jardiance) 10 mg PO DAILY 60 days #60 tabs 07/16/22 furosemide 40 mg tablet (Lasix) 40 mg PO DAILY #60 tabs 07/16/22 lisinopril 5 mg tablet 5 mg PO BID 60 days #120 tabs 07/16/22 potassium chloride 20 mEq tablet,extended release(part/cryst) (Klor-Con M) 20 meq PO DAILYCM 60 days #60 tabs 07/16/22 Hospital Course Summary of Care Provided Minutes Spent on Discharge: 55 Physical Exam Narrative GENERAL: cooperative HEENT: Atraumatic; normocephalic EYES; Anicteric, Normal Conjunctiva NECK; supple, normal thyroid, RESPIRATORY: Diminished to auscultation CARDIOVASCULAR: Regular S1 S2, GI: soft, normoactive bowel sounds, : No Renal angle tenderness; EXTREMITIES: edema, no clubbing, MUSCULOSKELETAL: no muscle wasting NEURO: Awake; no lateralizing signs. SKIN: No Rash PSYCH; Flat affect Weight / BMI Weight Weight: 125.3 kg Body Mass Index (BMI) 39.6 ABG / Lab / Microbiology Data Result Diagrams: 07/16/22 04:53 07/16/22 04:53 Laboratory: Laboratory Results - last 24 hr 07/16/22 04:53: WBC 8.7, RBC 4.81, Hgb 14.4, Hct 46.8, MCV 97.3 H, MCH 29.9, MCHC 30.8 L, RDW Std Deviation 49.5 H, RDW Coeff of Apz 13.7, Plt Count 215, MPV 11.3, Immature Gran % (Auto) 0.200, Neut % (Auto) 60.9, Lymph % (Auto) 23.7, [place] % (Auto) 12.6 H, Eos % (Auto) 2.1, Baso % (Auto) 0.5, Absolute Neuts (auto) 5.3, Absolute Lymphs (auto) 2.05, Nucleated RBC % 0 07/16/22 04:53: Sodium 140, Potassium 3.4 L, Chloride 105, Carbon Dioxide 31.0, Anion Gap 4 L, BUN 25 H, Creatinine 1.42 H, Estim Creat Clear Calc 56.41, Est GFR (MDRD) Af Amer 65, Est GFR (MDRD) Non-Af 54 L, BUN/Creatinine Ratio 17.6, Glucose 90, Calcium 9.5, Phosphorus 3.8 (more content not included)...[facility]04-05-[address] Ro [facility] July 16, 2022 10:43am Note Date/Time July 16, 2022 7:40 am [facility] Medical Records Department [address] [place] [address] Progress Note - Hospitalist 07/16/22 0740 MR#: [id number] Acct: [id number] Name: SCARLETT LANDRY Rep #:[id number] : 1960 62 From: Khai Ro MD PCP: Care Physician,No Primary Status :ADM IN Location: [place] [address] Reason for Visit Reason for Visit: Diagnoses Morbid (severe) obesity due to excess calories (07/14/22) Heart failure, unspecified (07/14/22) Elevated blood-pressure reading, without diagnosis of hypertension (07/14/22) Subjective Subjective Patient 2D echo demonstrated EF of 15 to 20%. Consult subsequently placed to cardiology Objective Data Objective Data Vital Signs: Vital Signs Temp Pulse Resp BP Pulse Ox O2 Del Method 96.7 F L 70 18 132/100 H 97 Room Air 07/16/22 03:10 07/16/22 03:10 07/16/22 03:10 07/16/22 03:10 07/16/22 03:10 07/16/22 03:10 Oxygen Delivery Method Room Air Weight: 125.3 kg Body Mass Index (BMI) 39.6 Intake & Output: Intake and Output for Last 24 Hours 07/14/22 07/15/22 07/16/22 23:59 23:59 23:59 Intake Total 240 / 240 Balance 240 / 240 Lab / Micro Data Result Diagrams: 07/16/22 04:53 07/16/22 04:53 Labs: Laboratory Results - last 24 hr 07/16/22 04:53: WBC 8.7, RBC 4.81, Hgb 14.4, Hct 46.8, MCV 97.3 H, MCH 29.9, MCHC 30.8 L, RDW Std Deviation 49.5 H, RDW Coeff of Paz 13.7, Plt Count 215, MPV11.3, Immature Gran % (Auto) 0.200, Neut % (Auto) 60.9, Lymph % (Auto) 23.7, [place] % (Auto) 12.6 H, Eos % (Auto) 2.1, Baso % (Auto) 0.5, Absolute Neuts (auto)5.3, Absolute Lymphs (auto) 2.05, Nucleated RBC % 0 07/16/22 04:53: Sodium 140, Potassium 3.4 L, Chloride 105, Carbon Dioxide 31.0, Anion Gap 4 L, BUN 25 H, Creatinine 1.42 H, Estim Creat Clear Calc 56.41, Est GFR (MDRD) Af Amer 65, Est GFR (MDRD) Non-Af 54 L, BUN/Creatinine Ratio 17.6, Glucose 90, Calcium 9.5, Phosphorus 3.8, Magnesium 2.2 Radiography Diagnostic Testing: Radiology Impression Echocardiogram 07/14/22 21:37 Interpretation Summary The estimated ejection fraction is 15-20 %. There is severe global hypokinesis of the left ventricle. The left atrium is mildly enlarged. The right atrium is mildly enlarged. Mild (1+) mitral valve insufficiency. Ordering Physician: Aren Valderrama Referring Physician: Moreno PCP Performed By: Emerson Sow RCS Physical Exam Narrative GENERAL: cooperative HEENT: Atraumatic; normocephalic EYES; Anicteric, Normal Conjunctiva NECK; supple, normal thyroid, RESPIRATORY: Diminished to auscultation CARDIOVASCULAR: Regular S1 S2, GI: soft, normoactive bowel sounds, : No Renal angle tenderness; EXTREMITIES: edema, no clubbing, MUSCULOSKELETAL: no muscle wasting NEURO: Awake; no lateralizing signs. SKIN: No Rash PSYCH; Flat affect Assessment & Plan Assessment/Plan (1) Congestive heart failure (CHF): (2) Elevated blood pressure reading: (3) Morbid obesity due to excess calories: PLAN: Plan Patient is a 62-year-old gentleman with no chronic medical problems presented with 2-week history of progressive shortness of breath with bilateral pedal edema and assessment of new onset congestive heart failure made admitted to a monitored bed for further management 1. Acute congestive heart failure with decreased ejection fraction 2D echo has been ordered to assess EF. Patient placed on strict input and output, daily weight, IV diuretics as well as fluid restriction in addition to low- sodium diet. Patient response to therapy being monitored with daily weightsas well as input and output ?07/16/2022. 2D echo obtained on 07/15/2022 is as below. The estimated ejection fraction is 15-20 %. There is severe global hypokinesis of the left ventricle. The left atrium is mildly enlarged. The right atrium is mildly enlarged. Mild (1+) mitral valve insufficiency. ?Based on patient's significant cardiomyopathy consultation was placed to cardiology to evaluate for possible coronary artery disease. Case was discussedwith Dr. Miller with cardiology 2. Elevated blood pressure ? Patient does not have history of hypertension given his presentation patient was started on lisinopril 3. Class III obesity with BMI of 42 ? Weight loss advised 4. Hypokalemia -Corrected per protocol, repeat potassium levels ordered for monitoring 5. Impaired kidney function ? Following patient diuresis adjusted patient Lasix dose 6. DVT prophylaxis - On enoxaparin Time spent in the patient's overall evaluation,decision-making process, review of diagnostic data, adjustment of management, discussion with other providers, nursing nursing and ancillary staff involved in patient's care documentation, 55Minutes Charges/Coding Visit Charges Inpatient E&M: 90693 Subs Hosp 07/16/22 1043 <Electronically signed by Khai Ro MD> Cosigner Signature (if applicable): CC: ~ Signed [facility] Work Phone: 1(750) 971-409704-05-[address] Miller [facility] July 16, 2022 10:16am Note Date/Time July 16, 2022 10:[address] [facility] Medical Records Department [address] [place] [address] Consultation - Cardiology 07/16/22 1007 MR#: [id number] Acct: [id number] Name: SCARLETT LANDRY Rep #:[id number] : 1960 62 From: Tim Miller MD PCP: Care Physician,No Primary Status :ADM IN Location: [place] [address] Assessment & Plan Assessment/Plan (1) Congestive heart failure (CHF): QUALIFIERS: Heart failure type: systolic Heart failure chronicity: acute Qualified Code(s): I50.21 - Acute systolic (congestive) heartfailure PLAN: Functional class III. Agree with diuresis. Titrate CRUZ inhibitors upwardas tolerated. Start on SGLT2 inhibitor. Introduce low-dose beta-blockers. 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 However will need to rule out coronary artery disease. Will consider coronary angiography versus stress test as outpatient. (2) Hypertension: PLAN: Increase CRUZ inhibitor's as tolerated. Introduce low-dose beta-blockers. (3) History of ETOH abuse: PLAN: Abstinent for the last 1 month. Encouraged to continue to stay abstinent. HPI Consult Data Date of Consult: 07/16/22 HPI Narrative Reason for Consultation: Congestive heart failure HPI Narrative: The patient presented to the hospital with complaints of a 2-week history of increasing shortness of breath and ankle edema. He also complained of increasing fatigue. No chest pain. An echocardiogram was done for the patient which showed ejection fraction of 15 to 20% with global hypokinesis. Patient denies any previous history of heart disease. He has a history of EtOH abuse. Per him, he quit drinking about a month ago. [facility] Medical History no medical history Home Medications NK 07/14/22 [History Last Taken Unknown] Allergy/AdvReac Type Severity Reaction Status Date / Time No Known Allergies Allergy Verified 07/14/22 15:27 Family History (Updated 07/14/22 @ 20:[address] Aren Valderrama MD) Other COPD (chronic obstructive pulmonary disease) Heart disease Surgical History no surgical history Social History Smoking Status: Former smoker Physical Exam Narrative Comfortable. No apparent distress. Positive jugular venous distention. Heart sounds 1 and 2 noted. Positive S3. No murmurs. Chest examination shows bibasilar crepitations. Abdomen soft. Alert oriented x3. 3+ bilateral lower extremity edema is noted. Risk Stratification Risk Stratification Applicable: No Objective Data Vital Signs: Vital Signs Temp Pulse Resp BP Pulse Ox O2 Del Method 97.5 F L 70 18 132/90 H 98 Room Air 07/16/22 09:10 07/16/22 09:10 07/16/22 09:10 07/16/22 09:10 07/16/22 09:10 07/16/22 09:10 Oxygen Delivery Method Room Air Weight: 276 lb 3.827 oz Body Mass Index (BMI) 39.6 Intake & Output: Intake and Output for Last 24 Hours 07/14/22 07/15/22 07/16/22 23:59 23:59 23:59 Intake Total 240 / 240 Balance 240 / 240 Lab / Micro Data Result Diagrams: 07/16/22 04:53 07/16/22 04:53 Labs: Laboratory Results - last 24 hr 07/16/22 04:53: WBC 8.7, RBC 4.81, Hgb 14.4, Hct 46.8, MCV 97.3 H, MCH 29.9, MCHC 30.8 L, RDW Std Deviation 49.5 H, RDW Coeff of Paz 13.7, Plt Count 215, MPV11.3, Immature Gran % (Auto) 0.200, Neut % (Auto) 60.9, Lymph % (Auto) 23.7, [place] % (Auto) 12.6 H, Eos % (Auto) 2.1, Baso % (Auto) 0.5, Absolute Neuts (auto)5.3, Absolute Lymphs (auto) 2.05, Nucleated RBC % 0 07/16/22 04:53: Sodium 140, Potassium 3.4 L, Chloride 105, Carbon Dioxide 31.0, Anion Gap 4 L, BUN 25 H, Creatinine 1.42 H, Estim Creat Clear Calc 56.41, Est GFR (MDRD) Af Amer 65, Est GFR (MDRD) Non-Af 54 L, BUN/Creatinine Ratio 17.6, Glucose 90, Calcium 9.5, Phosphorus 3.8, Magnesium 2.2 Rhythm Strip Rhythm Strip: Sinus Rhythm Cardiology Labs/Tests 07/16/22 04:53: WBC 8.7, RBC 4.81, Hgb 14.4, Hct 46.8, MCV 97.3 H, MCH 29.9, MCHC 30.8 L, Plt Count 215, MPV 11.3, Immature Gran % (Auto) 0.200, Neut % (Auto) 60.9, Lymph % (Auto) 23.7, [place] % (Auto) 12.6 H, Eos % (Auto) 2.1, Baso %(Auto) 0.5, Absolute Neuts (auto) 5.3, Nucleated RBC % 0 07/16/22 04:53: Sodium 140, Potassium 3.4 L, Chloride 105, Carbon Dioxide 31.0, Anion Gap 4 L, BUN 25 H, Creatinine 1.42 H, Est GFR (MDRD) Af Amer 65, Est GFR (MDRD) Non-Af 54 L, BUN/Creatinine Ratio 17.6, Glucose 90, Calcium 9.5, Phosphorus 3.8, Magnesium 2.2 Rhythm: EKG: Normal sinus rhythm with nonspecific intraventricular conduction delay ECHO: Global hypokinesis of the left ventricle. Ejection fraction 15 to 20%. Mild mitral valve regurgitation. Stress Test: Cardiac Cath: PCI: CT Surgery: Holter monitor: EPS: PPM: CXR: Chest CT Scan: Radiography Diagnostic Testing: Radiology Impression Echocardiogram 07/14/22 21:37 Interpretation Summary The estimated ejection fraction is 15-20 %. There is severe global hypokinesis of the left ventricle. The left atrium is mildly enlarged. The right atrium is mildly enlarged. Mild (1+) mitral valve insufficiency. Ordering Physician: Aren Valderrama Referring Physician: Moreno PCP Performed By: Emerson Sow RCS 07/16/22 1016 <Electronically signed by Tim Miller MD> Cosigner Signature (if applicable): CC: Dr. Tim Miller MD; Dr. Aren Valderrama MD; No Primary Care Physician~ Signed [facility] Work Phone: [phone]) 227-108704-04-[address] Ro [facility] July 15, 2022 11:53am Note Date/Time July 15, 2022 7:56 am [facility] Medical Records Department [address] [place] [id number] Progress Note - Hospitalist 07/15/22 0753 MR#: [id number] Acct: [id number] Name: SCARLETT LANDRY Rep #:[id number] : 1960 62 From: Khai Ro MD PCP: Care Physician,No Primary Status :ADM IN Location: [place] [address] Reason for Visit Reason for Visit: Diagnoses Morbid (severe) obesity due to excess calories (07/14/22) Heart failure, unspecified (07/14/22) Elevated blood-pressure reading, without diagnosis of hypertension (07/14/22) Subjective Subjective Patient is a 62-year-old gentleman with no chronic medical problems presented with 2-week history of progressive shortness of breath with bilateral pedal edema and assessment of new onset congestive heart failure made admitted to a monitored bed for further management Objective Data Objective Data Vital Signs: Vital Signs Temp Pulse Resp BP Pulse Ox O2 Del Method 97.8 F 69 20 H 137/95 H 97 Room Air 07/15/22 03:45 07/15/22 03:45 07/15/22 03:45 07/15/22 03:45 07/15/22 03:45 07/15/22 03:45 Oxygen Delivery Method Room Air Weight: 132.5 kg Body Mass Index (BMI) 41.9 Lab / Micro Data Result Diagrams: 07/15/22 05:42 07/15/22 05:42 Labs: Laboratory Results - last 24 hr 07/14/22 17:15: WBC 9.1, RBC 4.99, Hgb 15.4, Hct 48.8, MCV 97.8 H, MCH 30.9, MCHC 31.6 L, RDW Std Deviation 50.2 H, RDW Coeff of Paz 14.0, Plt Count 238, MPV11.7, Immature Gran % (Auto) 0.200, Neut % (Auto) 62.5, Lymph % (Auto) 24.4, [place] % (Auto) 11.4 H, Eos % (Auto) 1.1, Baso % (Auto) 0.4, Absolute Neuts (auto)5.7, Absolute Lymphs (auto) 2.21, Nucleated RBC % 0 07/14/22 17:15: Sodium 142, Potassium 4.2, Chloride 109 H, Carbon Dioxide 28.0, Anion Gap 5, BUN 22 H, Creatinine 1.28, Estim Creat Clear Calc 62.58, Est GFR (MDRD) Af Amer 73, Est GFR (MDRD) Non-Af 61, BUN/Creatinine Ratio 17.2, Glucose 87, Calcium 9.8, Troponin I High Sens 73 07/14/22 17:15: B-Natriuretic Peptide 896.0 H 07/14/22 22:41: Troponin I High Sens 70 07/15/22 00:43: Troponin I High Sens 70 07/15/22 05:42: WBC 8.5, RBC 4.60, Hgb 13.9, Hct 45.4, MCV 98.7 H, MCH 30.2, MCHC 30.6 L, RDW Std Deviation 51.0 H, RDW Coeff of Paz 14.0, Plt Count 214, MPV11.7, Immature Gran % (Auto) 0.400, Neut % (Auto) 62.5, Lymph % (Auto) 22.7, [place] % (Auto) 12.1 H, Eos % (Auto) 1.9, Baso % (Auto) 0.4, Absolute Neuts (auto)5.4, Absolute Lymphs (auto) 1.94, Nucleated RBC % 0 07/15/22 05:42: Sodium 141, Potassium 3.8, Chloride 108 H, Carbon Dioxide 30.0, Anion Gap 3 L, BUN 20 H, Creatinine 1.26, Estim Creat Clear Calc 63.57, Est GFR (MDRD) Af Amer 75, Est GFR (MDRD) Non-Af 62, BUN/Creatinine Ratio 15.9, Glucose 90, Calcium 8.9, Total Bilirubin 1.20 H, AST 33, ALT 34, Alkaline Phosphatase 66, Total Protein 6.6, Albumin 3.3, Globulin 3.3, Albumin/Globulin Ratio 1.0, Triglycerides 65, Cholesterol 88, LDL Cholesterol 48, VLDL Cholesterol 13, HDL Cholesterol 27 L, TSH 2.51 Radiography Diagnostic Testing: Radiology Impression Chest X-Ray 07/14/22 17:40 IMPRESSION: Lower lung edema or infiltrates. Cardiac enlargement. Electronically Signed: Steven Meek MD at 19:26 EDT , Physical Exam Narrative GENERAL: cooperative HEENT: Atraumatic; normocephalic EYES; Anicteric, Normal Conjunctiva NECK; supple, normal thyroid, RESPIRATORY: Diminished to auscultation CARDIOVASCULAR: Regular S1 S2, GI: soft, normoactive bowel sounds, : No Renal angle tenderness; EXTREMITIES: edema, no clubbing, MUSCULOSKELETAL: no muscle wasting NEURO: Awake; no lateralizing signs. SKIN: No Rash PSYCH; Flat affect Assessment & Plan Assessment/Plan (1) Congestive heart failure (CHF): (2) Elevated blood pressure reading: (3) Morbid obesity due to excess calories: PLAN: Plan Patient is a 62-year-old gentleman with no chronic medical problems presented with 2-week history of progressive shortness of breath with bilateral pedal edema and assessment of new onset congestive heart failure made admitted to a monitored bed for further management 1. New onset acute congestive heart failure (unspecified at this point). 2D echo has been ordered to assess EF. Patient placed on strict input and output, daily weight, IV diuretics as well as fluid restriction in addition to low- sodium diet. Patient response to therapy being monitored with daily weightsas well as input and output 2. Elevated blood pressure ? Patient does not have history of hypertension given his presentation patient was started on lisinopril 3. Class III obesity with BMI of 42 ? Weight loss advised 4. DVT prophylaxis - On enoxaparin Time spent in the patient's overall evaluation,decision-making process, review of diagnostic data, adjustment of management, discussion with other providers, nursing nursing and ancillary staff involved in patient's care documentation, 55Minutes Charges/Coding Visit Charges Inpatient E&M: 38775 Subs Hosp L3 07/15/22 1153 <Electronically signed by Khai Ro MD> Cosigner Signature (if applicable): CC: ~ Signed [facility] Work Phone: [phone]) 740-362704-03-[address]ise [facility] July 14, 2022 8:56pm Note Date/Time July 14, 2022 5:[address] [facility] Medical Records Department [address] [place] [address] Emergency Department Summary 07/14/22 MR#: [id number] Acct: [id number] Name: SCARLETT LANDRY Rep #:[id number] : 1960 62 From: Marques Moise DO PCP: Care Physician,No Primary Status :ADM IN Location: [place] [address] HPI History of Present Illness Chief Complaint: Shortness of Breath Narrative Narrative: 62-year-old male presenting with shortness of breath with exertion, orthopnea, lower extremity swelling. He states he has no medical problems. He has not seen a doctor in 20 years. He denies having chest pain. He has not had fever, chills, cough. PFSH PFSH Medical History no medical history Home Medications NK 07/14/22 [History Last Taken Unknown] Allergy/AdvReac Type Severity Reaction Status Date / Time No Known Allergies Allergy Verified 07/14/22 15:27 Family History (Updated 07/14/22 @ 20:[address] Aren Valderrama MD) Other COPD (chronic obstructive pulmonary disease) Heart disease Surgical History no surgical history Social History Smoking Status: Former smoker ROS ROS ED Constitutional Constitutional ED: Denies chills or fever(s) Eyes Eyes: Denies change in vision or diplopia ENT ENT ED: Denies rhinorrhea or sore throat Cardiovascular Cardiovascular: Reports orthopnea; Denies chest pain or palpitations Respiratory/Chest Respiratory/Chest: Reports dyspnea, dyspnea on exertion and orthopnea Gastrointestinal Gastrointestinal: Reports other Details: Abdominal swelling ; Denies nausea or vomiting Genitourinary Genitourinary ED: Denies dysuria Musculoskeletal Musculoskeletal: Denies arthralgias Integumentary Denies abscess or Abrasions Neurologic Neurologic: Denies headache(s) or paresthesias Psychiatric Psychiatric: Denies anxiety or depression EXAM Physical Exam Const Vital Signs: 07/14/22 15:25 07/14/22 17:04 07/14/22 17:06 Temperature 98 F Temperature Source Temporal Pulse Rate 81 90 Respiratory Rate 18 20 H Respiratory Effort Normal Respiratory Pattern Normal Blood Pressure 150/120 H 150/109 H Blood Pressure Mean 130 122 Pulse Ox 95 94 Oxygen Delivery Method Room Air Room Air 07/14/22 17:24 07/14/22 19:04 Temperature Temperature Source Pulse Rate 70 Respiratory Rate 16 Respiratory Effort Respiratory Pattern Blood Pressure 159/113 H Blood Pressure Mean 128 Pulse Ox 97 Oxygen Delivery Method Room Air Positive well nourished and obese Nutritional Appearance: obese HEENT Reports moist mucous membranes atraumatic Eyes PERRL and EOMs intact bilaterally Neck no lymphadenopathy Resp normal respiratory effort and clear to auscultation bilaterally Auscultation: Negative for rales, rhonchi or wheezes Cardio regular rate and regular rhythm GI non-tender Back/Spine no CVA tenderness Extremity General Extremety ED: Yes edema General Extremity: edema Neuro oriented x3 and CN's II-XII intact bilaterally Sensorium / Orientation: alert Motor Exam: strength 5/5 throughout Psych mental status grossly normal Skin no wounds MDM MDM MDM Narrative Medical decision making narrative: 62-year-old male with shortness of breath, increased abdominal girth, lower extremity edema. Presentation is consistent with CHF. He does not have any chest pain. Blood work was obtained and his CBC is unremarkable. Renal function and electrolytes also unremarkable. High-sensitivity troponin 73. BNP 896.0. Chest x-ray on my interpretation consistent with CHF. EKG sinus rhythm at 78 bpm with PVCs. Patient was given 40 mg Lasix IV. I discussed with the hospitalist for admission. Impression: 1. New onset CHF Lab Data Labs: Laboratory Results - last 24 hr 07/14/22 07/14/22 07/14/22 17:15 17:15 17:15 WBC 9.1 RBC 4.99 Hgb 15.4 Hct 48.8 MCV 97.8 H MCH 30.9 MCHC 31.6 L RDW Std Deviation 50.2 H RDW Coeff of Paz 14.0 Plt Count 238 MPV 11.7 Immature Gran % (Auto) 0.200 Neut % (Auto) 62.5 Lymph % (Auto) 24.4 [place] % (Auto) 11.4 H Eos % (Auto) 1.1 Baso % (Auto) 0.4 Absolute Neuts (auto) 5.7 Absolute Lymphs (auto) 2.21 Nucleated RBC % 0 Sodium 142 Potassium 4.2 Chloride 109 H Carbon Dioxide 28.0 Anion Gap 5 BUN 22 H Creatinine 1.28 Estim Creat Clear Calc 62.58 Est GFR (MDRD) Af Amer 73 Est GFR (MDRD) Non-Af 61 BUN/Creatinine Ratio 17.2 Glucose 87 Calcium 9.8 Troponin I High Sens 73 B-Natriuretic Peptide 896.0 H Radiography Diagnostic Testing: Clinical Impression(s) from Imaging Studies Chest X-Ray 07/14/22 17:40 IMPRESSION: Lower lung edema or infiltrates. Cardiac enlargement. Electronically Signed: Steven Meek MD at 19:26 EDT Reading Location ID and State: [facility] / [place] , Service support , Discharge Plan Triage Chief Complaint: Shortness of Breath Other Complaint: Edema ED Provider: Marques Moise Dx/Rx/DC Orders Primary Care Provider: Care Physician,No Primary What to do if you have Problems For any increased pain, shortness of breath, bleeding, nausea or vomiting, chestpain, or any unexpected problems, contact your Primary Care Provider. Call [facility] ([phone]) or report to the closest Emergency Room. Call 911 if necessary. 07/14/222055 <Electronically signed by Marques Moise DO> Cosigner Signature (if applicable): CC: No Primary Care Physician ~ Signed [facility] Work Phone: [phone]) 101-756304-03-2023 History and physical note Author Dr. Valderrama [facility] July 14, 2022 8:25pm Note Date/Time July 14, 2022 7:42 pm [facility] Medical Records Department [address] [place] [address] H&P Exam - Hospitalist 07/14/221940 MR#: [id number] Acct: [id number] Name: SCARLETT LANDRY Rep #:[id number] : 1960 62 From: Aren Valderrama MD PCP: Care Physician,No Primary Status :ADM IN Location: [facility] [id number] HPI - General General Date of Admission: 07/14/22 Date of Service: 07/14/22 Chief Complaint: Dyspnea on exertion HPI Narrative SCARLETT LANDRY, is a 62 M with a significant history of previous alcoholism; former tobacco use and who saw a doctor bout 20 years ago presenting to the emergency department with 2 and half week history of progressively worsening dyspnea on exertion. Associated with symptom is orthopnea; paroxysmal nocturnaldyspnea; bilateral lower extremity swelling and lower abdominal swelling. Also he reports fatigue and decreased appetite. His legs have been so much swelling that he had trouble putting his work boots on. 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 [facility] Medical History no medical history no medical history Home Medications NK 07/14/22 [History Last Taken Unknown] Allergy/AdvReac Type Severity Reaction Status Date / Time No Known Allergies Allergy Verified 07/14/22 15:27 Family History (Updated 07/14/22 @ 20:[address] Aren Valderrama MD) Other COPD (chronic obstructive pulmonary disease) Heart disease Surgical History no surgical history no surgical history Social History Smoking Status: Former smoker ROS ROS Narrative Pertinent positives and pertinent negatives as noted in HPI. All other systems were reviewed and are negative Vital Signs Vital Signs Vital Signs: 07/14/22 15:25 07/14/22 17:04 07/14/22 17:06 Temperature 98 F Temperature Source Temporal Pulse Rate 81 90 Respiratory Rate 18 20 H Respiratory Effort Normal Respiratory Pattern Normal Blood Pressure 150/120 H 150/109 H Blood Pressure Mean 130 122 Pulse Ox 95 94 Oxygen Delivery Method Room Air Room Air 07/14/22 17:24 07/14/22 19:04 Temperature Temperature Source Pulse Rate 70 Respiratory Rate 16 Respiratory Effort Respiratory Pattern Blood Pressure 159/113 H Blood Pressure Mean 128 Pulse Ox 97 Oxygen Delivery Method Room Air Weight Weight: 134.745 kg Body Mass Index (BMI) 42.6 Physical Exam Narrative Physical exam: General: Well-nourished, well-developed. Head: Normocephalic, atraumatic, no tenderness Eyes: Vision is grossly intact. EOMI ENT, no trauma, moist mucous membranes, no rhinorrhea Neck: Nontender, No thyromegaly. CVS: Regular rate and rhythm. S1-S2 present. No murmur, gallop or rub. Respiratory : Diminished; bilaterally, chest wall nontender Abdomen: Soft, nontender, nondistended, normal bowel sounds. Edema of lower abdomen : Deferred Back: Nontender, no CVA tenderness, no midline spinal tenderness, deformities, step-offs Extremities: Nontender full range of motion, no trauma. Bilateral lower extremity edema 3+ Skin: Normal color, no trauma, abrasions Neuro: Alert, oriented, cranial nerves II through XII grossly intact. Psychiatry: Normal mood. Normal affect. Not depressed. Not anxious. Results Lab / Micro Data Result Diagrams: 07/14/22 17:15 07/14/22 17:15 Labs: Laboratory Results - last 24 hr 07/14/22 17:15: WBC 9.1, RBC 4.99, Hgb 15.4, Hct 48.8, MCV 97.8 H, MCH 30.9, MCHC 31.6 L, RDW Std Deviation 50.2 H, RDW Coeff of Paz 14.0, Plt Count 238, MPV11.7, Immature Gran % (Auto) 0.200, Neut % (Auto) 62.5, Lymph % (Auto) 24.4, [place] % (Auto) 11.4 H, Eos % (Auto) 1.1, Baso % (Auto) 0.4, Absolute Neuts (auto)5.7, Absolute Lymphs (auto) 2.21, Nucleated RBC % 0 07/14/22 17:15: Sodium 142, Potassium 4.2, Chloride 109 H, Carbon Dioxide 28.0, Anion Gap 5, BUN 22 H, Creatinine 1.28, Estim Creat Clear Calc 62.58, Est GFR (MDRD) Af Amer 73, Est GFR (MDRD) Non-Af 61, BUN/Creatinine Ratio 17.2, Glucose 87, Calcium 9.8, Troponin I High Sens 73 07/14/22 17:15: B-Natriuretic Peptide 896.0 H Radiology Impression Chest X-Ray 07/14/22 17:40 IMPRESSION: Lower lung edema or infiltrates. Cardiac enlargement. Electronically Signed: Steven Meek MD at 19:26 EDT Reading Location ID and State: [facility] / [place] , Service support , Assessment & Plan Assessment/Plan (1) Congestive heart failure (CHF): (2) Elevated blood pressure reading: (3) Morbid obesity due to excess calories: PLAN: Plan Acute heart failure New onset Place on monitored bed on PCU Weight on admission to the floor; and then daily Strict I&O's Chest x-ray was visualized and independently interpreted I agree with radiology interpretation of cardiomegaly and bilateral pulmonary infiltrates. EKG independently reviewed confirms sinus rhythm with PVCs Emergency department labs reviewed showed elevated BNP of 896 Discussed with ED doctor will give Lasix 40 mg IV push. Lasix 40 mg twice dailyordered. Supplement potassium. Transthoracic echocardiogram to evaluate left ventricular wall motion and systolic function. Monitor electrolytes and renal function; and liver biochemistry. Check a TSH and lipid panel. Trend blood pressure Cruz wrap to bilateral lower extremities; elevate bilateral lower extremity. Fluid restriction of 1500 mls daily Cardiac diet Elevated blood pressure without diagnosis of hypertension Patient blood pressure is elevated. However patient has not seen a doctor within 20 years. Will start patient on low-dose lisinopril. Will trend blood pressures. Morbid Obesity : BMI:42.6 kg/m?. Complicates care. Lifestyle modification recommended. Charges/Coding Visit Charges Inpatient E&M: 67656 Init Hosp L3 07/14/222024 <Electronically signed by Aren Valderrama MD> Cosigner Signature (if applicable): CC: Dr. Aren Valderrama MD; No Primary Care Physician~ Signed [facility] Work Phone: [phone]) 848-776404-03-[address]ise [facility] July 14, 2022 8:56pm Note Date/Time July 14, 2022 5:38 pm [facility] Medical Records Department [address] [place] [id number] Emergency Department Summary 07/14/22 MR#: [id number] Acct: [id number] Name: SCARLETT LANDRY Rep #:[id number] : 1960 62 From: Marques Moise DO PCP: Care Physician,No Primary Status :ADM IN Location: [address] History of Present Illness Chief Complaint: Shortness of Breath Narrative Narrative: 62-year-old male presenting with shortness of breath with exertion, orthopnea, lower extremity swelling. He states he has no medical problems. He has not seen a doctor in 20 years. He denies having chest pain. He has not had fever, chills, cough. PFSH PFSH Medical History no medical history Home Medications NK 07/14/22 [History Last Taken Unknown] Allergy/AdvReac Type Severity Reaction Status Date / Time No Known Allergies Allergy Verified 07/14/22 15:27 Family History (Updated 07/14/22 @ 20:[address] Aren Valderrama MD) Other COPD (chronic obstructive pulmonary disease) Heart disease Surgical History no surgical history Social History Smoking Status: Former smoker ROS ROS ED Constitutional Constitutional ED: Denies chills or fever(s) Eyes Eyes: Denies change in vision or diplopia ENT ENT ED: Denies rhinorrhea or sore throat Cardiovascular Cardiovascular: Reports orthopnea; Denies chest pain or palpitations Respiratory/Chest Respiratory/Chest: Reports dyspnea, dyspnea on exertion and orthopnea Gastrointestinal Gastrointestinal: Reports other Details: Abdominal swelling ; Denies nausea or vomiting Genitourinary Genitourinary ED: Denies dysuria Musculoskeletal Musculoskeletal: Denies arthralgias Integumentary Denies abscess or Abrasions Neurologic Neurologic: Denies headache(s) or paresthesias Psychiatric Psychiatric: Denies anxiety or depression EXAM Physical Exam Const Vital Signs: 07/14/22 15:25 07/14/22 17:04 07/14/22 17:06 Temperature 98 F Temperature Source Temporal Pulse Rate 81 90 Respiratory Rate 18 20 H Respiratory Effort Normal Respiratory Pattern Normal Blood Pressure 150/120 H 150/109 H Blood Pressure Mean 130 122 Pulse Ox 95 94 Oxygen Delivery Method Room Air Room Air 07/14/22 17:24 07/14/22 19:04 Temperature Temperature Source Pulse Rate 70 Respiratory Rate 16 Respiratory Effort Respiratory Pattern Blood Pressure 159/113 H Blood Pressure Mean 128 Pulse Ox 97 Oxygen Delivery Method Room Air Positive well nourished and obese Nutritional Appearance: obese HEENT Reports moist mucous membranes atraumatic Eyes PERRL and EOMs intact bilaterally Neck no lymphadenopathy Resp normal respiratory effort and clear to auscultation bilaterally Auscultation: Negative for rales, rhonchi or wheezes Cardio regular rate and regular rhythm GI non-tender Back/Spine no CVA tenderness Extremity General Extremety ED: Yes edema General Extremity: edema Neuro oriented x3 and CN's II-XII intact bilaterally Sensorium / Orientation: alert Motor Exam: strength 5/5 throughout Psych mental status grossly normal Skin no wounds MDM MDM MDM Narrative Medical decision making narrative: 62-year-old male with shortness of breath, increased abdominal girth, lower extremity edema. Presentation is consistent with CHF. He does not have any chest pain. Blood work was obtained and his CBC is unremarkable. Renal function and electrolytes also unremarkable. High-sensitivity troponin 73. BNP 896.0. Chest x-ray on my interpretation consistent with CHF. EKG sinus rhythm at 78 bpm with PVCs. Patient was given 40 mg Lasix IV. I discussed with the hospitalist for admission. Impression: 1. New onset CHF Lab Data Labs: Laboratory Results - last 24 hr 07/14/22 07/14/22 07/14/22 17:15 17:15 17:15 WBC 9.1 RBC 4.99 Hgb 15.4 Hct 48.8 MCV 97.8 H MCH 30.9 MCHC 31.6 L RDW Std Deviation 50.2 H RDW Coeff of Paz 14.0 Plt Count 238 MPV 11.7 Immature Gran % (Auto) 0.200 Neut % (Auto) 62.5 Lymph % (Auto) 24.4 [place] % (Auto) 11.4 H Eos % (Auto) 1.1 Baso % (Auto) 0.4 Absolute Neuts (auto) 5.7 Absolute Lymphs (auto) 2.21 Nucleated RBC % 0 Sodium 142 Potassium 4.2 Chloride 109 H Carbon Dioxide 28.0 Anion Gap 5 BUN 22 H Creatinine 1.28 Estim Creat Clear Calc 62.58 Est GFR (MDRD) Af Amer 73 Est GFR (MDRD) Non-Af 61 BUN/Creatinine Ratio 17.2 Glucose 87 Calcium 9.8 Troponin I High Sens 73 B-Natriuretic Peptide 896.0 H Radiography Diagnostic Testing: Clinical Impression(s) from Imaging Studies Chest X-Ray 07/14/22 17:40 IMPRESSION: Lower lung edema or infiltrates. Cardiac enlargement. Electronically Signed: Steven Meek MD at 19:26 EDT Reading Location ID and State: [facility] / [place] , Service support , Discharge Plan Triage Chief Complaint: Shortness of Breath Other Complaint: Edema ED Provider: Marques Moise Dx/Rx/DC Orders Primary Care Provider: Care Physician,No Primary What to do if you have Problems For any increased pain, shortness of breath, bleeding, nausea or vomiting, chestpain, or any unexpected problems, contact your Primary Care Provider. Call [facility] ([phone]) or report to the closest Emergency Room. Call 911 if necessary. 07/14/222055 <Electronically signed by Marques Moise DO> Cosigner Signature (if applicable): CC: No Primary Care Physician ~ Signed [facility] Work Phone: [phone] 801-241304-03-2023 NoteHNO ID: [id number] Author: Michelle Figueroa PA-C Service: ? Author Type: Physician Maple [employer] Maker Type: Progress Notes Filed: 07/14/2022 3:05 PM Note Text: Patient presents to express care triage with a chief complaint of shortness of breath and bilateral leg swelling for 2 weeks. Swelling worsened today to where he could not put his boots on. Denies a cough or congestion. No fever. Denies any cardiac history. Does not have a regular physician he sees. Denies chest pain. Has not had leg swelling previously. No history of kidney or liver disease. Recommended the patient be seen in the emergency department. His will take him to [facility]. Vital signs stable here. BP 138/98 Pulse 92 Temp 36.7 ?C (98 ?F) Resp 18 Wt 134.7 kg (297 lb) SpO2 97%[facility]04-03-2023 History of Present illness Narrative* Michelle Figueroa PA-C - 07/14/2022 3:04 PM EDT Patient presents to express care triage with a chief complaint of shortness of breath and bilateralleg swelling for 2 weeks. Swelling worsened today to where he could not put his boots on. Denies a cough or congestion. No fever. Denies any cardiac history. Does not have a regular physician he sees. Denies chest pain. Has not had leg swelling previously. No history of kidney or liver disease. Recommended the patient be seen in the emergency department. His will take him to [facility]. Vital signs stable here. BP 138/98 Pulse 92 Temp 36.7 C (98 F) Resp 18 Wt 134.7 kg (297 lb) SpO2 97% [facility]* Diagnosis Onset Date Resolution Status Congestive heart failure (CHF) acute Elevated blood pressure reading acute Morbid obesity due to excess calories acute [facility] Work Phone: Evaluation note* Diagnosis Peripheral edema- Primary Edema SOB (shortness of breath) Shortness of breath documented in this encounter [facility] Diagnosis Onset Date Resolution Status Congestive heart failure (CHF) acute Elevated blood pressure reading acute History of ETOH abuse acute Morbid obesity due to excess calories acute Hypertension [facility] Work Phone: Evaluation note* Diagnosis Onset Date Resolution Status Congestive heart failure (CHF) acute Morbid obesity due to excess calories chronic Congestive heart failure (CHF) acute Essential hypertension chron ic [facility] Work Phone: History and physical note Author Dr. Valderrama [facility] July 14, 2022 8:25pm Note Date/Time July 14, 2022 7:42 pm [facility] Medical Records Department [address] [place] [address] H&P Exam - Hospitalist 07/14/221940 MR#: [id number] Acct: [id number] Name: SCARLETT LANDRY Rep #:[id number] : 1960 62 From: Aren Valderrama MD PCP: Care Physician,No Primary Status :ADM IN Location: [facility] [id number]- [id number] HPI - General General Date of Admission: 07/14/22 Date of Service: 07/14/22 Chief Complaint: Dyspnea on exertion HPI Narrative SCARLETT LANDRY, is a 62 M with a significant history of previous alcoholism; former tobacco use and who saw a doctor bout 20 years ago presenting to the emergency department with 2 and half week history of progressively worsening dyspnea on exertion. Associated with symptom is orthopnea; paroxysmal nocturnaldyspnea; bilateral lower extremity swelling and lower abdominal swelling. Also he reports fatigue and decreased appetite. His legs have been so much swelling that he had trouble putting his work boots on. 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 [facility] Medical History no medical history no medical history Home Medications NK 07/14/22 [History Last Taken Unknown] Allergy/AdvReac Type Severity Reaction Status Date / Time No Known Allergies Allergy Verified 07/14/22 15:27 Family History (Updated 07/14/22 @ 20:[address] Aren Valderrama MD) Other COPD (chronic obstructive pulmonary disease) Heart disease Surgical History no surgical history no surgical history Social History Smoking Status: Former smoker ROS ROS Narrative Pertinent positives and pertinent negatives as noted in HPI. All other systems were reviewed and are negative Vital Signs Vital Signs Vital Signs: 07/14/22 15:25 07/14/22 17:04 07/14/22 17:06 Temperature 98 F Temperature Source Temporal Pulse Rate 81 90 Respiratory Rate 18 20 H Respiratory Effort Normal Respiratory Pattern Normal Blood Pressure 150/120 H 150/109 H Blood Pressure Mean 130 122 Pulse Ox 95 94 Oxygen Delivery Method Room Air Room Air 07/14/22 17:24 07/14/22 19:04 Temperature Temperature Source Pulse Rate 70 Respiratory Rate 16 Respiratory Effort Respiratory Pattern Blood Pressure 159/113 H Blood Pressure Mean 128 Pulse Ox 97 Oxygen Delivery Method Room Air Weight Weight: 134.745 kg Body Mass Index (BMI) 42.6 Physical Exam Narrative Physical exam: General: Well-nourished, well-developed. Head: Normocephalic, atraumatic, no tenderness Eyes: Vision is grossly intact. EOMI ENT, no trauma, moist mucous membranes, no rhinorrhea Neck: Nontender, No thyromegaly. CVS: Regular rate and rhythm. S1-S2 present. No murmur, gallop or rub. Respiratory : Diminished; bilaterally, chest wall nontender Abdomen: Soft, nontender, nondistended, normal bowel sounds. Edema of lower abdomen : Deferred Back: Nontender, no CVA tenderness, no midline spinal tenderness, deformities, step-offs Extremities: Nontender full range of motion, no trauma. Bilateral lower extremity edema 3+ Skin: Normal color, no trauma, abrasions Neuro: Alert, oriented, cranial nerves II through XII grossly intact. Psychiatry: Normal mood. Normal affect. Not depressed. Not anxious. Results Lab / Micro Data Result Diagrams: 07/14/22 17:15 07/14/22 17:15 Labs: Laboratory Results - last 24 hr 07/14/22 17:15: WBC 9.1, RBC 4.99, Hgb 15.4, Hct 48.8, MCV 97.8 H, MCH 30.9, MCHC 31.6 L, RDW Std Deviation 50.2 H, RDW Coeff of Paz 14.0, Plt Count 238, MPV11.7, Immature Gran % (Auto) 0.200, Neut % (Auto) 62.5, Lymph % (Auto) 24.4, [place] % (Auto) 11.4 H, Eos % (Auto) 1.1, Baso % (Auto) 0.4, Absolute Neuts (auto)5.7, Absolute Lymphs (auto) 2.21, Nucleated RBC % 0 07/14/22 17:15: Sodium 142, Potassium 4.2, Chloride 109 H, Carbon Dioxide 28.0, Anion Gap 5, BUN 22 H, Creatinine 1.28, Estim Creat Clear Calc 62.58, Est GFR (MDRD) Af Amer 73, Est GFR (MDRD) Non-Af 61, BUN/Creatinine Ratio 17.2, Glucose 87, Calcium 9.8, Troponin I High Sens 73 07/14/22 17:15: B-Natriuretic Peptide 896.0 H Radiology Impression Chest X-Ray 07/14/22 17:40 IMPRESSION: Lower lung edema or infiltrates. Cardiac enlargement. Electronically Signed: Steven Meek MD at 19:26 EDT , Assessment & Plan Assessment/Plan (1) Congestive heart failure (CHF): (2) Elevated blood pressure reading: (3) Morbid obesity due to excess calories: PLAN: Plan Acute heart failure New onset Place on monitored bed on PCU Weight on admission to the floor; and then daily Strict I&O's Chest x-ray was visualized and independently interpreted I agree with radiology interpretation of cardiomegaly and bilateral pulmonary infiltrates. EKG independently reviewed confirms sinus rhythm with PVCs Emergency department labs reviewed showed elevated BNP of 896 Discussed with ED doctor will give Lasix 40 mg IV push. Lasix 40 mg twice dailyordered. Supplement potassium. Transthoracic echocardiogram to evaluate left ventricular wall motion and systolic function. Monitor electrolytes and renal function; and liver biochemistry. Check a TSH and lipid panel. Trend blood pressure Cruz wrap to bilateral lower extremities; elevate bilateral lower extremity. Fluid restriction of 1500 mls daily Cardiac diet Elevated blood pressure without diagnosis of hypertension Patient blood pressure is elevated. However patient has not seen a doctor within 20 years. Will start patient on low-dose lisinopril. Will trend blood pressures. Morbid Obesity : BMI:42.6 kg/m?. Complicates care. Lifestyle modification recommended. Charges/Coding Visit Charges Inpatient E&M: 52679 Init Hosp L3 07/14/222024 <Electronically signed by Aren Valderrama MD> Cosigner Signature (if applicable): CC: Dr. Aren Valderrama MD; No Primary Care Physician~ Signed [facility] Work Phone: Chief Complaint and Reason for Visit Chief Complaint ACUTE HEART FAILURE Reason for Visit Congestive heart gifty lure (CHF) Elevated blood pressure reading Morbid obesity due to excess calories Chief Complaint ACUTE HEART FAILURE ACUTE HEART FAILURE ACUTE HEART FAILURE ACUTE HEART FAILURE Reason for Visit Congestive heart gifty lure (CHF) Elevated blood pressure reading History of ETOH abuse Morbid obesity due to excess calories Hypertension Chief Complaint ACUTE HEART FAILURE ACUTE HEART FAILURE ACUTE HEART FAILURE ACUTE HEART FAILURE [facility] S/P CHF CHF, HTN; CAD CHF, HTN; CAD Reason for Visit Congestive heart gifty lure (CHF) Morbid obesity due to excess calories Congestive heart failure (CHF) Essential hypertension Chief Complaint ACUTE HEART FAILURE ACUTE HEART FAILURE ACUTE HEART FAILURE ACUTE HEART FAILURE [facility] S/P CHF CHF, HTN; CAD CHF, HTN; CAD CHF, HTN; CAD CHF, RE-EVAL EF POST GDMT CHANGES Amb Documentation Reason for Visit Congestive heart gifty lure (CHF) Morbid obesity due to excess calories Congestive heart failure (CHF) Essential hypertension Family History Relationship Condition Age at Onset Recorded Date/T dilia Not Specified Cardiac disease Unknown Chronic obstructive pulmonary disease Unk nown Advance Directives Advance Directive Response Recorded Date/ Time Living Will No July 14, 2022 5:06pm Power of Show Girl No July 14 5:06pm Advance Directive Response Recorded Date/ Time Living Will No July 14, 2022 9:39pm Power of Show Girl No July 14 9:39pm Summary Purpose Additional Source Comments Care Teams (unrecognized sec tion and content) Team Status: Active Member Role Status Dates No Primary Care Physician Primary Care Provider Active Team Status: Active Member Role Status Dates Dr. Marques Moise , DO Emergency Provider Active No Primary Care Physician Primary Care Provider Active Dr. Aren Valderrama MD Admit Provider, Attending Pro vider Active Team Status: Active Member Role Status Dates Dr. Marques Moise , DO Emergency Provider Active No Primary Care Physician Primary Care Provider Active Dr. Aren Valderrama MD Admit Provider, Other Provide r Active Dr. Khai Ro MD Attending Provider, Other Provid er Active Team Status: Active Member Role Status Dates No Primary Care Physician Primary Care Provider Active Dr. Whitley Dobson MD Attending Provider Activ e Team Status: Active Member Role Status Dates Dr. Marques Moise , DO Emergency Provider Active No Primary Care Physician Primary Care Provider Active Dr. Aren Valderrama MD Admit Provider, Other Provide r Active Dr. Khai Ro MD Other Provider Active Dr. Tim Miller MD Attending Provider, Other Provid er Active Team Status: Active Member Role Status Dates Dr. Marques Moise , DO Emergency Provider Active No Primary Care Physician Primary Care Provider Active Dr. Aren Valderrama MD Admit Provider, Other Provide r Active Dr. Khai Ro MD Attending Provider, Other Provid er Active Dr. Tim Miller MD Other Provider Active Team Status: Inactive Member Role Status Dates Dr. Marques Moise , DO Emergency Provider Active No Primary Care Physician Primary Care Provider Active Dr. Aren Valderrama MD Admit Provider, Other Provide r Active Dr. Khai Ro MD Attending Provider Active Dr. Tim Miller MD Other Provider Active Team Status: Inactive Member Role Status Dates No Primary Care Physician Primary Care Provider, Refer ring Provider Active Benito Haywood TRIBAL JUDGE, TRIBAL JUDGE-C Attending Provider Active Team Status: Active Member Role Status Dates No Primary Care Physician Primary Care Provider Active Benito Haywood TRIBAL JUDGE, TRIBAL JUDGE-C Referring Provider, Other Provide r Active Dr. Tim Miller MD Attending Provider Active Team Status: Inactive Member Role Status Dates No Primary Care Physician Primary Care Provider Active Benito Haywood TRIBAL JUDGE, TRIBAL JUDGE-C Attending Provider, Referring Pro vider Active Team Status: Active Member Role Status Dates No Primary Care Physician Primary Care Provider Active Dr. Tim Miller MD Attending Provider Active Benito Haywood TRIBAL JUDGE, TRIBAL JUDGE-C Referring Provider Active Team Status: Active Member Role Status Dates No Primary Care Physician Primary Care Provider Active Dr. Tim Miller MD Attending Provider Active Team Status: Active Member Role Status Dates No Primary Care Physician Primary Care Provider Active Benito Haywood TRIBAL JUDGE, TRIBAL JUDGE-C Attending Provider Active Goals (unrecognized section and content) Goals may be documented in a n alternate section Source Comments (unrecognize d section and content) In the event this informatio n is protected by the Federal Confidentiality of Alcohol and Drug Abuse Patient Records regulations: The Federal rules restrict any use of the information to criminally investigate or prosecute any alcohol or drug abuse patient.[facility] Reason for Visit (unrecogniz ed section and content) Reason Comments Shortness of Breath With swollen legs an d feet x 2 weeks (unrecognized sect ion and content) No Status Records FoundNo Status Records Found INFORMATION SOURCE (unrecogn ized section and content) DATE CREATED AUTHOR 07/17/2022 [facility] DATE CREATED AUTHOR AUTHOR'S PAULINE ISIDROION 10/31/2022 [facility] FOR RECORDS PERTAINING TO PATIENTS WHO ARE OR HAVE BEEN ENROLLED IN A CHEMICAL DEPENDENCY/SUBSTANCEABUSE PROGRAM, SOME INFORMATION MAY BE OMITTED. This clinical summary was aggregated from multiple sources. Caution should be exercised in using it in the provision of clinical care. This summary normalizes information from multiple sources, and as a consequence, information in this document may materially change the coding, format and clinical context of patient data. In addition, data may be omitted in some cases. CLINICAL DECISIONS SHOULD BE BASED ON THE PRIMARY CLINICAL RECORDS. [facility] [employer] [facility]. provides no warranty or guarantee of the accuracy or completeness of information in this document.
[2024-12-24 18:40] LABS: Anion Gap 12 (5-15); BUN 27 mg/dL (4-19); BUN/Creat Ratio 19.4 RATIO (10-20); Calcium,Total 10.1 mg/dL (7.6-11.0); Carbon Dioxide 23.4 mmol/L (21.0-32.0); Chloride 106 mmol/L (98-108); Estimated Creatinine Clearance 72.52 ml/min (50-250); Glucose 109 mg/dL (70-99); Potassium 4.6 mmol/L (3.3-5.1)
[2024-12-24 18:43] LABS: Pro- Brain NATRIURETIC PEPTIDE 7117 pg/mL (<=900); Troponin T High Sensitivity 60 ng/L (<=22)
--- NOTE | 2024-12-24 19:30 | HP.PCM.HOS_ITS ---
HPI - General General Date of Admission: 12/24/24 Date of Service: 12/24/24 Chief Complaint: Exertional dyspnea and lower extremity swelling HPI Narrative SCARLETT LANDRY, is a 64 M who presented to [facility] ED on 12/24/2024 with exertional dyspnea and lower extremity swelling. 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 Patient lives home with his . He has noticed increasing lower extremity swelling over the past several weeks. He has now noticed worsening shortness of breath and chest discomfort with exertion over the past several days. He also reports orthopnea. Has been taking his home Lasix as prescribed with good urine output. Patient reports very occasional alcohol use now with last use about 2 months ago. Has never had sleep apnea testing done. In the ED today heart rate noted to be in the 120s, and EKG showed what appeared to be slow atrial flutter with 2:1 conduction. Chest x-ray with stable cardiomegaly with mild pulmonary vascular congestion. BNP 7117. Troponin trend 60 > 59. Given concern for new onset A- flutter, CHF and concern for NSTEMI, case was discussed with cardiology who recommended heparin drip for anticoagulation and n.p.o. for possible cath tomorrow. Hospitalist was then contacted for admission. I saw the patient at bedside in the ED, was present. Patient was sitting back comfortably in bed, conversing normally, in no acute distress. He was breathing comfortably on room air at rest. On lung auscultation he had mild crackles noted in bilateral bases but otherwise good air movement throughout. Had +1-2 lower extremity pitting edema up to the upper calf noted. Denied any other acute concerns currently. Will be admitted for further management. [facility] Medical History Essential hypertension History of ETOH abuse Elevated blood pressure reading Home Medications ?Medication ?Instructions ?Recorded ?Last Taken ?Type potassium chloride 20 mEq See Rx Instructions .Route 0 05/11/23 12/24/24 Rx tablet,extended .COMPLEX #90 tabs release(part/cryst) (Klor-Con M) lisinopril 10 mg tablet 10 mg PO BID #180 tabs 08/2312/24/24 Rx carvedilol 6.25 mg tablet 6.25 mg PO BID #180 TABLETS 08/23/24 12/24/24 Rx furosemide 40 mg tablet (Lasix) 40 mg PO DAILY #90 tab s 08/29/24 12/24/24 Rx Allergy/AdvReac Type Severity Reaction Status Date / Time No Known Allergies Allergy Verified 12/24/24 16:42 Family History Other COPD (chronic obstructive pulmonary disease) Heart disease Social History (Updated 12/24/24 @ 17:[address] Yuniel Hoffman MD) household members: spouse Smoking Status: Former smoker how long ago did patient quit smokin years ago alcohol intake: never substance use type: marijuana caffeine: No (None in the last couple of weeks) ROS Constitutional Constitutional: Reports fatigue; Denies chills, fever(s) or weakness Cardiovascular Cardiovascular: Reports dyspnea on exertion, edema and orthopnea; Denies chest pain, lightheadedness or palpitations Respiratory/Chest Respiratory/Chest: Reports shortness of breath with exertion; Denies cough, productive cough, shortness of breath at rest or wheezing Gastrointestinal Gastrointestinal: Denies abdominal pain Musculoskeletal Musculoskeletal: Denies arthralgias or myalgias Neurologic Neurologic: Denies dizziness, focal weakness or headache(s) Vital Signs Vital Signs Vital Signs: 12/24/24 16:41 12/24/24 17:03 12/24/24 17:49 Temperature 98.0 F Temperature Source Oral Pulse Rate 120 H 122 H Respiratory Rate 22 H 16 Respiratory Effort Normal Respiratory Depth Normal Respiratory Pattern Normal Blood Pressure 146/114 H 130/103 H Blood Pressure Mean 124 112 Pulse Ox 98 98 Oxygen Delivery Method Room Air Room Air Room Air 12/24/24 17:50 12/24/24 17:50 Temperature 98.8 F Temperature Source Oral Pulse Rate 122 H Respiratory Rate 16 Respiratory Effort Respiratory Depth Respiratory Pattern Blood Pressure 129/108 H Blood Pressure Mean 115 Pulse Ox 98 Oxygen Delivery Method Room Air Room Air Weight Weight: 122.742 kg Body Mass Index (BMI) 38.8 Physical Exam Const alert, oriented x3 and no apparent distress Constitutional Narrative: Pleasant upper middle-age male, class II obesity, mildly fatigued appearing but otherwise sitting back comfortably in bed, conversing normally, in no acute distress. General Appearance: cooperative and comfortable HEENT normocephalic, head/scalp atraumatic, hearing grossly normal bilaterally, nasal mucous membranes and turbinates normal and moist oral mucous membranes Eyes PERRL, EOMs intact bilaterally and conjunctivae normal Neck full ROM Chest inspection of chest normal Resp normal respiratory effort and no use of accessory muscles Resp Narrative: Breathing comfortably on room air at rest. Mild crackles noted in bilateral lung bases but otherwise good air movement throughout. Cardio no murmurs and peripheral pulses 2+ throughout Cardio Narrative: Tachycardic, regular rhythm. GI normal to inspection, nondistended, normoactive bowel sounds, soft to palpation, non-tender and non-distended Back/Spine normal ROM Extremity normal to inspection, full ROM and no pedal edema Skin no rashes or lesions noted Psych mental status grossly normal Results Lab / Micro Data 12/24/24 17:06 12/24/24 17:06 Labs: Laboratory Results - last 24 hr 12/24/24 17:06: WBC 9.9, RBC 4.81, Hgb 15.1, Hct 45.8, MCV 95.2 H, MCH 31.4, MCHC 33.0, RDW Std Deviation 49.7 H, RDW Coeff of Paz 14.2, Plt Count 253, MPV 11.3, Immature Gran % (Auto) 0.300, Neut % (Auto) 60.1, Lymph % (Auto) 27.8, M melissa % (Auto) 10.6 H, Eos % (Auto) 0.8, Baso % (Auto) 0.4, Absolute Neuts (auto) 6.0, Absolute Lymphs (auto) 2.76, Nucleated RBC % 0, Sodium 141, Potassium 4.6, Chloride 106, Carbon Dioxide 23.4, Anion Gap 12, BUN 27 H, Creatinine 1.37 H, Estim Creat Clear Calc 72.52, Est GFR (MDRD) Non-Af 58 L, BUN/Creatinine Ratio 19.4, Glucose 109 H, Calcium 10.1, Troponin T High Sens 60 H*, NT pro BNP II 7117 H Imaging Radiology Impression Chest X-Ray 12/24/24 17:55 IMPRESSION: Stable cardiomegaly with mild pulmonary vascular congestion. Reading [facility] Assessment & Plan Assessment/Plan (1) Acute exacerbation of CHF (congestive heart failure): (2) Atrial flutter with rapid ventricular response: PLAN: Plan Patient is a 64-year-old male who presented [facility] ED on 12/24/2024 with exertional dyspnea and lower extremity swelling. 1. New onset A-fib/flutter with RVR with CHF exacerbation; elevated troponins; history of HFrEF with recovered ejection fraction secondary to alcohol cardiomyopathy; history of hypertension ? Admit under inpatient status to PCU. Cardiology consulted. History of severe HFrEF with dilated cardiomyopathy in July 2022 with EF 15 to 20%. Stress test then was negative. Had good recovery with medical therapy with last echo in October 2022 with EF 50%. It appears he was then lost to follow-up. Presentation now seems most consistent with CHF exacerbation secondary to tachycardia induced cardiomyopathy in setting of new onset A-fib/flutter, possibly due to untreated DELVIN as below. Troponin 60 > 59, most likely elevated due to A-fib/flutter and CHF exacerbation, though cannot rule out coronary disease. EKG showed slow atrial flutter with rate in the 120s with 2:1 conduction. BNP 7117. Chest x- ray with mild pulmonary congestion. Patient satting well on room air at rest. Per cardiology, patient initiated on heparin drip and will keep n.p.o. overnight for possible left heart cath tomorrow. Echo ordered. Will start IV Lasix 40 mg twice daily, monitor daily BMP and urine output. Will also start Cardizem drip with goal rate less than 100. Will hold home Coreg and lisinopril for now. Appreciate further cardiology recommendations. 2. CKD stage IIIa ? Creatinine 1.37 on admit, baseline 1.2-1.3. Monitor daily BMP and urine output while on IV Lasix as above. 3. Class II obesity with suspected DELVIN ? BMI 38 on admit. Complicates hospital course and care. Patient with risk factors and history that seem consistent with DELVIN. Cardiology recommended sleep study for further evaluation in 2022 but patient never had this done. Strongly recommend outpatient sleep study for further evaluation shortly after discharge. 4. History of alcohol abuse ? History of heavy alcohol use prior to hospitalization in 2022 as above. Patient reports very minimal alcohol use since then. Alcohol level 0 on admit. DVT prophylaxis: Not indicated, on heparin drip CODE STATUS: Full code, verified Expected disposition: Home, TBD Total clinical time spent by myself addressing the patient's medical issues, reviewing all the data, and collaborating with patient's care team: 81 minutes. Charges/Coding Visit Charges Inpatient E&M: 03106 Init Hosp L3
--- NOTE | 2024-12-24 19:36 | ECHOCS_ITS ---
Reason For Study Reason For Study: CHF Procedure This was a 2D Doppler, Color Flow transthoracic echocardiogram. The study was technically difficult. Exam performed portable in patient room. Left Ventricle Moderately dilated left ventricle. Severe global LV systolic dysfunction. Estimated LVEF 5%. Stage I diastolic dysfunction. Right Ventricle Normal RV size. Mild global right ventricular systolic dysfunction. Atria There is mild biatrial dilatation. Mitral Valve The mitral valve is structurally normal. No prolapse or stenosis seen. Mild- Moderate (1-2+) mitral valve insufficiency. Tricuspid Valve Normal tricuspid valve. Mild (1+) tricuspid valve insufficiency. Pulmonary artery systolic pressure is 39 mmHg. Aortic Valve Trisinus/trileaflet aortic valve. Mild focal aortic valve thickening. Trivial aortic valve insufficiency. Pulmonic Valve Normal pulmonic valve. Mild-Moderate (1-2+) pulmonic valve insufficiency. Great Vessels Mildly dilated aortic root. The inferior vena cava is dilated. No collapse of the inferior vena cava. Pericardium/Pleural Trivial pericardial effusion. Medication Diluted definity 1.0ml given slow IV push to enhance endocardial definition. MMode/2D Measurements & Calculations LVIDd: 6.4 cm IVSd: 1.1 cm Ao root diam: 4.1 cm LVIDs: 5.5 cm LVPWd: 0.98 cm RVDd: 3.9 cm FS: 14.3 % LAV(MOD-bp): 68.7 ml LVAd ap4: 49.6 cm2 LVAd ap2: 46.1 cm2 LAV(MOD-bp) Indexed: 29.0 ml/m2 LVLd ap4: 9.1 cm LVLd ap2: 9.3 cm LAV(MOD-sp2): 65.5 ml EDV(MOD-sp4): 220.9 ml EDV(MOD-sp2): 188.1 ml LAV(MOD-sp4): 72.4 ml EDV(sp4-el): 229.3 ml EDV(sp2-el): 193.3 ml LVAs ap4: 46.8 cm2 LVAs ap2: 42.8 cm2 LVLs ap4: 9.1 cm LVLs ap2: 9.0 cm ESV(MOD-sp4): 198.8 ml ESV(MOD-sp2): 165.7 ml ESV(sp4-el): 204.5 ml ESV(sp2-el): 172.8 ml EF(MOD-sp4): 10.0 % EF(MOD-sp2): 11.9 % EF(sp4-el): 10.8 % SV(MOD-sp4): 22.1 ml SV(MOD-sp2): 22.4 ml SV(sp4-el): 24.7 ml SI(MOD-sp4): 9.3 ml/m2 SI(MOD-sp2): 9.5 ml/m2 LA A4 area: 25.0 cm2 LA dimension(2D): 3.9 cm RA A4 area: 23.5 cm2 Doppler Measurements & Calculations MV E max al: 92.9 cm/sec Ao V2 max: 97.9 cm/sec LV V1 max: 78.9 cm/sec Ao max P.1 mmHg LV V1 max P.7 mmHg PA V2 max: 68.4 cm/sec PI end-d al: 172.9 cm/sec TR max al: 243.6 cm/sec TR max P.9 mmHg ECHO/Echo Complete W/ Contrast Interpretation Summary Moderately dilated left ventricle. Severe global LV systolic dysfunction. Estimated LVEF 5%. Stage I diastolic dys function. Mild global right ventricular systolic dysfunction. There is mild biatrial dilatation. Mild-Moderate (1-2+) mitral valve insufficiency. Mild (1+) tricuspid valve insufficiency. Mildly dilated aortic root. The study was technically difficult. Contrast injection was performed. Ordering Physician: bAhi Chong Performed By: Kathy Guzman RDCS
--- NOTE | 2024-12-24 19:50 | CM.ED ---
Social Work Date of referral: 12/24/24 Reason for referral: No Primary Care Physician (PCP) on file. Referred by: Social Work Identification Patient provided consent to social work visit. Patient confirmed lack of PCP. Surgical Garment Inspector provided education and a written handout for the [facility] which patient accepted and expressed appreciation for. Shira Luz, AGRICULTURAL EDUCATION PROFESSOR, FILEMAKER DEVELOPER
--- OUTSIDE RECORDS SUMMARY | 2024-12-24 20:00 | XMS RPT_ITS | CCD ---
Author Organization [facility] Care Team Providers Care Rubber Turner Name Role Phone Unavailable Primary Care Provider Dr. Marques Morris Emergency Provider Care Physician, No Primary Primary Care Provider Unavailable Dr. Aren Valderrama Admit Provider Dr. Aren Valderrama Other Provider [phone] Khai Ro Attending Provider Unavailable Dr. Khai Ro Other Provider Unavailable Dr. Whitley Dobson Attending Provider Dr. Tim Miller Other Provider Dr. Tim Miller Attending Provider Care Physician, No Primary Referring Provider Un available Roof CRITICAL CARE PHYSICIAN, CRITICAL CARE PHYSICIAN-C Benito Johnson Attending Provider Roof CRITICAL CARE PHYSICIAN, CRITICAL CARE PHYSICIAN-C Benito Johnson Referring Provider Roof CRITICAL CARE PHYSICIAN, CRITICAL CARE PHYSICIAN-C Benito Johnson Other Provider Roof CRITICAL CARE PHYSICIAN, Benito Johnson Attending Unavailable Care Physician, No Primary Primary Care Unava ilable Roof CRITICAL CARE PHYSICIAN, Benito Johnson Referring Unavailable Roof CRITICAL CARE PHYSICIAN, Benito Johnson Attending Unavailable Care Physician, No Primary Primary Care Unava ilable Roof CRITICAL CARE PHYSICIAN, Benito Johnson Consulting Unavailable Roof CRITICAL CARE PHYSICIAN, Benito Johnson Referring Unavailable Care Physician, No Primary Primary Care Unava ilable Tim Miller Attending Unavailable Care Physician, No Primary Primary Care Unava ilable Aren Valderrama Admitting Unavailable Aren Valderrama Attending Unavailable Aren Valderrama Consulting Unavailable Khai Ro Attending Unavailable Khai Ro Consulting Unavailable Roof CRITICAL CARE PHYSICIAN, Benito Johnson Referring Unavailable Roof CRITICAL CARE PHYSICIAN, Benito Johnson Attending Unavailable Care Physician, No [...] ilable Whitley Dobson Attending Unavailabl e Roof CRITICAL CARE PHYSICIANBenito Referring Unavailable Care Physician, No Primary Primary Care Unava ilable PaulTim Attending Unavailable Paul, Tim Attending Unavailable Care Physician, No Primary Primary Care Unava ilable Roof CRITICAL CARE PHYSICIAN, ESTEFANY Johnson Referring Provider [phone] Medications Current Medications Medication Drug Class(es) Dates [...] Facility Echo Limited w/Contraston Echo Limited w/Contrast [facility] [address] [place] [address] Echo Limited w/Contrast 10/29/22 0923 MR#: [id number] Acct: [id number] Name: SCARLETT LANDRY Rep #: [id number] : 1960 62 From: Tim Miller MD Attending Dr: Benito Haywood, DEYANIRA-C Status: REG CLI Ordering Dr: Benito Haywood CRITICAL CARE PHYSICIAN CRITICAL CARE PHYSICIAN-C Date: 10/29/22 Location: [facility] Sex: M C Admitted: Reason For Study: [...] 10/29/22 1249 Date Tim Miller MD CC: CRITICAL CARE PHYSICIAN-David Haywood; No Primary Care Physician Date Dictated: 10/29/22922 Date Transcribed: 10/29/22 124 Shark Biologist: Signed Normal [facility] Stress Reporton 08-11-2022 Stress Report [facility] [address] [place] [address] MR#: [id number] Acct: [id number] Name: SCARLETT LANDRY Rep #: [id number] : 1960 62 From: Tim Miller MD Primary Care: Care Physician,No Primary Status: REG CLI Referring Dr: Benito Haywood NP CRITICAL CARE PHYSICIAN-C Sex: M C Stress Test Report Date: [...] of 32%. This note was generated with Pay-Meation software. It may contain incorrect words, spelling, and punctuation that were not noted in checking the note before signing. 08/11/2250 Date Tim Miller MD CC: ESTEFANY Haywood; No Primary Care Physician Date Dictated: 08/11/22832 Date Transcribed: 08/11/22832 Shark Biologist: RASHIDA Signed Normal [facility] Cardiology Visit Reporton Cardiology Visit Report [facility] [address] [place] [address] [address] [place], [place] [address] OFFICE VISIT Date of Service: 07/30/22 MR#: [id number] Acct: [id number] Name: SCARLETT LANDRY Rep #: [id number] : 1960 Provider: ESTEFANY peterson Age/Sex: 62/M Location: [facility] Status: Signed HPI HPI History of Present Illness Details: This is a 62-year-old male who presents the office today for a posthospital follow-up. He presented to [facility] on 07/14/2022 for shortness of breath, orthopnea, [...] 71 Pulse Source Monitor Intake Visit Reasons: [facility] S/P CHF Adult Daycare Coordinator Required: No Accompanied by: Is patient in [...] 15 to 19 Nurse's Note: Did not roll picker Jardiance due to cost. [facility] Medical History Elevated blood pressure reading Essential [...] normal bi (more content not included)... Normal [facility] Basic Metabolic Profile (BMP )on 07-18-2022 BUN Normal 7-18 [facility] Comment on above: Result Comment: Canc elled via OM: Order cancelled - Patient discharged Performed By: #### L 500.2500, L100.0100 ####[facility] [address] [place] [address] BUN/CRE Normal 10-20 [facility] Comment on above: Result Comment: Canc elled via OM: Order cancelled - Patient discharged Performed By: #### L 500.2500, L100.0100 ####[facility] [address] [place] [facility] [address] CA,Total Normal 8.5-10.1 [facility] Comment on above: Result Comment: Canc elled via OM: Order cancelled - Patient discharged Performed By: #### L 500.2500, L100.0100 ####[facility] [address] [place] [facility] [address] CL Normal 98-107 [facility] Comment on above: Result Comment: Canc elled via OM: Order cancelled - Patient discharged Performed By: #### L 500.2500, L100.0100 ####[facility] [address] [place] [facility] [address] CO2 Normal 21.0-32.0 [facility] Comment on above: Result Comment: Canc elled via OM: Order cancelled - Patient discharged Performed By: #### L 500.2500, L100.0100 ####[facility] [address] [place], [address] CREAT,SERUM Normal 0.70-1.30 [facility] Comment on above: Result Comment: Canc elled via OM: Order cancelled - Patient discharged Performed By: #### L 500.2500, L100.0100 ####[facility] [address] [place], [address] EST GFR Normal >60 [facility] Comment on above: Result Comment: Canc elled via OM: Order cancelled - Patient discharged Performed By: #### L 500.2500, L100.0100 ####[facility] [address] [place], [address] EST GFR - AA Normal >60 [facility] Comment on above: Result Comment: Canc elled via OM: Order cancelled - Patient discharged Performed By: #### L 500.2500, L100.0100 ####[facility] [address] [place], [address] GAP Normal 5-15 [facility] Comment on above: Result Comment: Canc elled via OM: Order cancelled - Patient discharged Performed By: #### L 500.2500, L100.0100 ####[facility] [address] [place], [address] GLU Normal 74-106 [facility] Comment on above: Result Comment: Canc elled via OM: Order cancelled - Patient discharged Performed By: #### L 500.2500, L100.0100 ####[facility] [address] [place], [address] Potassium Normal 3.5-5.1 [facility] Comment on above: Result Comment: Canc elled via OM: Order cancelled - Patient discharged Performed By: #### L 500.2500, L100.0100 ####[facility] [address] [place], [address] Basic Metabolic Profile (BMP) Normal 136-145 [facility] Comment on above: Result Comment: Canc elled via OM: Order cancelled - Patient discharged Performed By: #### L 500.2500, L100.0100 ####[facility] [address] [place], [address] CBC W/Diff, Automatedon 04-0 -2022 Absolute Neut Normal 2.0-7.7 [facility] Comment on above: Result Comment: Canc elled via OM: Order cancelled - Patient discharged Performed By: #### L 500.2500, L100.0100 ####[facility] [address] [place], [address] HCT Normal 40-54 [facility] Comment on above: Result Comment: Canc elled via OM: Order cancelled - Patient discharged Performed By: #### L 500.2500, L100.0100 ####[facility] [address] [place], [address] HGB Normal 13.0-16.5 [facility] Comment on above: Result Comment: Canc elled via OM: Order cancelled - Patient discharged Performed By: #### L 500.2500, L100.0100 ####[facility] [address] [place], [address] MCH Normal 27.0-32.0 [facility] Comment on above: Result Comment: Canc elled via OM: Order cancelled - Patient discharged Performed By: #### L 500.2500, L100.0100 ####[facility] [address] [place], [address] MCHC Normal 32-36 [facility] Comment on above: Result Comment: Canc elled via OM: Order cancelled - Patient discharged Performed By: #### L 500.2500, L100.0100 ####[facility] [address] [place], [address] MCV Normal 80-94 [facility] Comment on above: Result Comment: Canc elled via OM: Order cancelled - Patient discharged Performed By: #### L 500.2500, L100.0100 ####[facility] [address] [place], [address] NEUT% Normal 47-70 [facility] Comment on above: Result Comment: Canc elled via OM: Order cancelled - Patient discharged Performed By: #### L 500.2500, L100.0100 ####[facility] [address] [place], [address] PLT Normal 150-450 [facility] Comment on above: Result Comment: Canc elled via OM: Order cancelled - Patient discharged Performed By: #### L 500.2500, L100.0100 ####[facility] [address] [place], [address] RBC Normal 4.6-6.2 [facility] Comment on above: Result Comment: Canc elled via OM: Order cancelled - Patient discharged Performed By: #### L 500.2500, L100.0100 ####[facility] [address] [place], [address] RDW CV Normal 11.6-14.6 [facility] Comment on above: Result Comment: Canc elled via OM: Order cancelled - Patient discharged Performed By: #### L 500.2500, L100.0100 ####[facility] [address] [place], [address] RDW SD Normal 35.1-43.9 [facility] Comment on above: Result Comment: Canc elled via OM: Order cancelled - Patient discharged Performed By: #### L 500.2500, L100.0100 ####[facility] [address] [place], [address] WBC Normal 4.4-11.0 [facility] Comment on above: Result Comment: Canc elled via OM: Order cancelled - Patient discharged Performed By: #### L 500.2500, L100.0100 ####[facility] [address] [place], [address] Basic Metabolic Profile (BMP )on 07-17-2022 BUN Normal 7-18 [facility] Comment on above: Result Comment: Canc elled via OM: Order cancelled - Patient discharged Performed By: #### L 100.0100, L500.2500 ####[facility] [address] [place], [address] BUN/CRE Normal 10-20 [facility] Comment on above: Result Comment: Canc elled via OM: Order cancelled - Patient discharged Performed By: #### L 100.0100, L500.2500 ####[facility] [address] [place], [address] CA,Total Normal 8.5-10.1 [facility] Comment on above: Result Comment: Canc elled via OM: Order cancelled - Patient discharged Performed By: #### L 100.0100, L500.2500 ####[facility] [address] [place], [address] CL Normal 98-107 [facility] Comment on above: Result Comment: Canc elled via OM: Order cancelled - Patient discharged Performed By: #### L 100.0100, L500.2500 ####[facility] [address] [place], [address] CO2 Normal 21.0-32.0 [facility] Comment on above: Result Comment: Canc elled via OM: Order cancelled - Patient discharged Performed By: #### L 100.0100, L500.2500 ####[facility] [address] [place], [address] CREAT,SERUM Normal 0.70-1.30 [facility] Comment on above: Result Comment: Canc elled via OM: Order cancelled - Patient discharged Performed By: #### L 100.0100, L500.2500 ####[facility] [address] [place], [address] EST GFR Normal >60 [facility] Comment on above: Result Comment: Canc elled via OM: Order cancelled - Patient discharged Performed By: #### L 100.0100, L500.2500 ####[facility] [address] [place], [address] EST GFR - AA Normal >60 [facility] Comment on above: Result Comment: Canc elled via OM: Order cancelled - Patient discharged Performed By: #### L 100.0100, L500.2500 ####[facility] [address] [place], [address] GAP Normal 5-15 [facility] Comment on above: Result Comment: Canc elled via OM: Order cancelled - Patient discharged Performed By: #### L 100.0100, L500.2500 ####[facility] [address] [place], [address] GLU Normal 74-106 [facility] Comment on above: Result Comment: Canc elled via OM: Order cancelled - Patient discharged Performed By: #### L 100.0100, L500.2500 ####[facility] [address] [place], [address] Potassium Normal 3.5-5.1 [facility] Comment on above: Result Comment: Canc elled via OM: Order cancelled - Patient discharged Performed By: #### L 100.0100, L500.2500 ####[facility] [address] [place], [address] Basic Metabolic Profile (BMP) Normal 136-145 [facility] Comment on above: Result Comment: Canc elled via OM: Order cancelled - Patient discharged Performed By: #### L 100.0100, L500.2500 ####[facility] [address] [place], [address] CBC W/Diff, Automatedon 04-0 -2022 Absolute Neut Normal 2.0-7.7 [facility] Comment on above: Result Comment: Canc elled via OM: Order cancelled - Patient discharged Performed By: #### L 100.0100, L500.2500 ####[facility] [address] [place], [address] HCT Normal 40-54 [facility] Comment on above: Result Comment: Canc elled via OM: Order cancelled - Patient discharged Performed By: #### L 100.0100, L500.2500 ####[facility] [address] [place], [address] HGB Normal 13.0-16.5 [facility] Comment on above: Result Comment: Canc elled via OM: Order cancelled - Patient discharged Performed By: #### L 100.0100, L500.2500 ####[facility] [address] [place], [address] MCH Normal 27.0-32.0 [facility] Comment on above: Result Comment: Canc elled via OM: Order cancelled - Patient discharged Performed By: #### L 100.0100, L500.2500 ####[facility] [address] [place], [address] MCHC Normal 32-36 [facility] Comment on above: Result Comment: Canc elled via OM: Order cancelled - Patient discharged Performed By: #### L 100.0100, L500.2500 ####[facility] [address] [place], [address] MCV Normal 80-94 [facility] Comment on above: Result Comment: Canc elled via OM: Order cancelled - Patient discharged Performed By: #### L 100.0100, L500.2500 ####[facility] [address] [place], [address] NEUT% Normal 47-70 [facility] Comment on above: Result Comment: Canc elled via OM: Order cancelled - Patient discharged Performed By: #### L 100.0100, L500.2500 ####[facility] [address] [place], [address] PLT Normal 150-450 [facility] Comment on above: Result Comment: Canc elled via OM: Order cancelled - Patient discharged Performed By: #### L 100.0100, L500.2500 ####[facility] [address] [place], [address] RBC Normal 4.6-6.2 [facility] Comment on above: Result Comment: Canc elled via OM: Order cancelled - Patient discharged Performed By: #### L 100.0100, L500.2500 ####[facility] [address] [place], [address] RDW CV Normal 11.6-14.6 [facility] Comment on above: Result Comment: Canc elled via OM: Order cancelled - Patient discharged Performed By: #### L 100.0100, L500.2500 ####[facility] [address] [place], [address] RDW SD Normal 35.1-43.9 [facility] Comment on above: Result Comment: Canc elled via OM: Order cancelled - Patient discharged Performed By: #### L 100.0100, L500.2500 ####[facility] [address] [place], [address] WBC Normal 4.4-11.0 [facility] Comment on above: Result Comment: Canc elled via OM: Order cancelled - Patient discharged Performed By: #### L 100.0100, L500.2500 ####[facility] [address] [place], [address] Absolute lymphocyte countOrd ered By: Dr. Ro on 07-16-2022 Lymphocytes Auto (Unsp spec) [#/Vol] 2.05 10*3/uL 0.83-4.51 [facility] Basic Metabolic Profile (BMP )on 07-16-2022 BUN/CRE 17.6 RATIO Normal 10-20 [facility] Comment on above: Performed By: #### L 501.2300, L100.0100, L501.5200, L500.2500 ####[facility] [address] [place], [address] CA,Total 9.5 mg/dL Normal 8.5-10.1 [facility] Comment on above: Performed By: #### L 501.2300, L100.0100, L501.5200, L500.2500 ####[facility] [address] [place], [address] Chloride [Moles/Vol] 105 mmol/L Normal 98-107 [facility] Comment on above: Performed By: #### L 501.2300, L100.0100, L501.5200, L500.2500 ####[facility] [address] [place], [address] CO2 [Moles/Vol] 31.0 mmol/L Normal 21.0-32.0 [facility] Comment on above: Performed By: #### L 501.2300, L100.0100, L501.5200, L500.2500 ####[facility] [address] [place], [address] Creatinine [Mass/Vol] 1.42 mg/dL High 0.70-1.30 [facility] Comment on above: Result Comment: The validity of the calculated GFR GFRAA in patients over 70 years has not been determined. Clinical correlation is essential. Performed By: #### L 501.2300, L100.0100, L501.5200, L500.2500 ####[facility] [address] [place], [address] ECRCL 56.41 ml/min Normal [facility] Comment on above: Performed By: #### L 501.2300, L100.0100, L501.5200, L500.2500 ####[facility] [address] [place], [address] EST GFR - AA 65 mL/min Normal >60 [facility] Comment on above: Result Comment: Afri can Albanian GFR Calc Performed By: #### L 501.2300, L100.0100, L501.5200, L500.2500 ####[facility] [address] [place], [address] GAP 4 Low 5-15 [facility] Comment on above: Performed By: #### L 501.2300, L100.0100, L501.5200, L500.2500 ####[facility] [address] [place], [address] GFR/1.73 sq M.predicted among non-blacks MDRD (S/P/Bld) [Vol rate/Area] 54 mL/min/{1.73_m2} Low >60 [facility] Comment on above: Result Comment: Non- GFR Calc Performed By: #### L 501.2300, L100.0100, L501.5200, L500.2500 ####[facility] [address] [place], [address] Glucose [Mass/Vol] 90 mg/dL Normal 74-106 [facility] Comment on above: Performed By: #### L 501.2300, L100.0100, L501.5200, L500.2500 ####[facility] [address] [place], [address] Potassium [Moles/Vol] 3.4 mmol/L Low 3.5-5.1 [facility] Comment on above: Performed By: #### L 501.2300, L100.0100, L501.5200, L500.2500 ####[facility] [address] [place], [address] Sodium [Moles/Vol] 140 mmol/L Normal 136-145 [facility] Comment on above: Performed By: #### L 501.2300, L100.0100, L501.5200, L500.2500 ####[facility] [address] [place], [address] Urea nitrogen [Mass/Vol] 25 mg/dL High 7-18 [facility] Comment on above: Performed By: #### L 501.2300, L100.0100, L501.5200, L500.2500 ####[facility] [address] [place], [address] Basophil percentageOrdered B y: Dr. Ro on 07-16-2022 Basophil percentage 3.8 mg/dL 2.5-4.9 [facility] Basophils/100 WBC (Bld) 0.5 % 0-1 [facility] Chloride [Moles/Vol] 105 mmol/L 98-107 [facility] Eosinophils/100 WBC (Bld) 2.1 % 0-5 [facility] Glucose [Mass/Vol] 90 mg/dL 74-106 [facility] Neutrophils (Bld) [#/Vol] 5.3 10*3/uL 2.0-7.7 [facility] Neutrophils/100 WBC (Bld) 60.9 % 47-70 [facility] Potassium [Moles/Vol] 3.4 mmol/L 3.5-5.1 [facility] Sodium [Moles/Vol] 140 mmol/L 136-145 [facility] WBC (Bld) [#/Vol] 8.7 10*3/uL 4.4-11.0 [facility] Blood erythrocytes count (nu mber/volume)Ordered By: Dr. Ro on 07-16-2022 RBC (Bld) [#/Vol] 4.81 10*6/uL 4.6-6.2 [facility] Blood hemoglobin measurement (mass/volume)Ordered By: Dr. Ro on 07-16-2022 Hemoglobin (Bld) [Mass/Vol] 14.4 g/dL 13.0-16.5 [facility] Blood lymphocytes/100 leukoc ytesOrdered By: Dr. Ro on 07-16-2022 Lymphocytes/100 WBC (Bld) 23.7 % 19-41 [facility] Blood monocytes/100 leukocyt esOrdered By: Dr. Ro on 07-16-2022 Monocytes/100 WBC (Bld) 12.6 % 0-10 [facility] Blood platelet mean volumeOr dered By: Dr. Ro on 07-16-2022 Platelet mean volume (Bld) [Entitic vol] 11.3 fL 6.2-12.0 [facility] CBC W/Diff, Automatedon 04-0 Absolute Lymph 2.05 X10 3/uL Normal 0.83-4.51 [facility] Comment on above: Performed By: #### L 501.2300, L100.0100, L501.5200, L500.2500 ####[facility] [address] [place], [address] Absolute Neut 5.3 X10 3/uL Normal 2.0-7.7 [facility] Comment on above: Performed By: #### L 501.2300, L100.0100, L501.5200, L500.2500 ####[facility] [address] [place], [address] Basophils/100 WBC (Bld) 0.5 % Normal 0-1 [facility] Comment on above: Performed By: #### L 501.2300, L100.0100, L501.5200, L500.2500 ####[facility] [address] [place], [address] Eosinophils/100 WBC (Bld) 2.1 % Normal 0-5 [facility] Comment on above: Performed By: #### L 501.2300, L100.0100, L501.5200, L500.2500 ####[facility] [address] [place], [address] Erythrocyte distribution width (RBC) [Ratio] 13.7 % Normal 11.6-14.6 [facility] Comment on above: Performed By: #### L 501.2300, L100.0100, L501.5200, L500.2500 ####[facility] [address] [place], [address] Hematocrit (Bld) [Volume fraction] 46.8 % Normal 40-54 [facility] Comment on above: Performed By: #### L 501.2300, L100.0100, L501.5200, L500.2500 ####[facility] [address] [place], [address] Hemoglobin (Bld) [Mass/Vol] 14.4 g/dL Normal 13.0-16.5 [facility] Comment on above: Performed By: #### L 501.2300, L100.0100, L501.5200, L500.2500 ####[facility] [address] [place], [address] IG% 0.200 Normal 0.0-0.9 [facility] Comment on above: Result Comment: IG% - Immature Granulocytes (promyelocytes, myelocytes and metamyelocytes) > 1% indicates that a LEFT SHIFT is Present. Performed By: #### L 501.2300, L100.0100, L501.5200, L500.2500 ####[facility] [address] [place], [address] Lymphocytes/100 WBC (Bld) 23.7 % Normal 19-41 [facility] Comment on above: Performed By: #### L 501.2300, L100.0100, L501.5200, L500.2500 ####[facility] [address] [place], [address] MCH (RBC) [Entitic mass] 29.9 pg Normal 27.0-32.0 [facility] Comment on above: Performed By: #### L 501.2300, L100.0100, L501.5200, L500.2500 ####[facility] [address] [place], [address] MCHC (RBC) [Mass/Vol] 30.8 g/dL Low 32-36 [facility] Comment on above: Performed By: #### L 501.2300, L100.0100, L501.5200, L500.2500 ####[facility] [address] [place], [address] MCV (RBC) [Entitic vol] 97.3 fL High 80-94 [facility] Comment on above: Performed By: #### L 501.2300, L100.0100, L501.5200, L500.2500 ####[facility] [address] [place], [address] Monocytes/100 WBC (Bld) 12.6 % High 0-10 [facility] Comment on above: Performed By: #### L 501.2300, L100.0100, L501.5200, L500.2500 ####[facility] [address] [place], [address] Neutrophils/100 WBC (Bld) 60.9 % Normal 47-70 [facility] Comment on above: Performed By: #### L 501.2300, L100.0100, L501.5200, L500.2500 ####[facility] [address] [place], [address] Nucleated RBC (Bld) [#/Vol] 0 10*3/uL Normal 0-5 [facility] Comment on above: Performed By: #### L 501.2300, L100.0100, L501.5200, L500.2500 ####[facility] [address] [place], [address] Platelet mean volume (Bld) [Entitic vol] 11.3 fL Normal 6.2-12.0 [facility] Comment on above: Performed By: #### L 501.2300, L100.0100, L501.5200, L500.2500 ####[facility] [address] [place], [address] Platelets (Bld) [#/Vol] 215 10*3/uL Normal 150-450 [facility] Comment on above: Performed By: #### L 501.2300, L100.0100, L501.5200, L500.2500 ####[facility] [address] [place], [address] RBC (Bld) [#/Vol] 4.81 10*6/uL Normal 4.6-6.2 [facility] Comment on above: Performed By: #### L 501.2300, L100.0100, L501.5200, L500.2500 ####[facility] [address] [place], [address] RDW SD 49.5 fl High 35.1-43.9 [facility] Comment on above: Performed By: #### L 501.2300, L100.0100, L501.5200, L500.2500 ####[facility] [address] [place], [address] WBC (Bld) [#/Vol] 8.7 10*3/uL Normal 4.4-11.0 [facility] Comment on above: Performed By: #### L 501.2300, L100.0100, L501.5200, L500.2500 ####[facility] [address] [place], [address] Consultation - Cardiologyon 07-16-2022 Consultation - Cardiology [facility] Medical Records Department [address] [place] [address] Consultation - Cardiology 07/16/22 1007 MR#: [id number] Acct: [id number] Name: SCARLETT LANDRY Rep #: [id number] : 1960 62 From: Tim Miller MD PCP: Care Physician,No Primary Status:ADM IN Location: [place] [address] Assessment Plan Assessment/Plan (1) Congestive heart failure [...] he quit drinking about a month ago. [facility] Medical History no medical history Home Medications [...] % (Auto) 60.9, Lymph % (Auto) 23.7, [place] % (Auto) 12.6 H, Eos % (Auto) [...] % (Auto) 60.9, Lymph % (Auto) 23.7, [place] % (Auto) 12.6 H, Eos % (Auto) [...] Interpretation Summary (more content not included)... Normal [facility] Determination of erythrocyte mean corpuscular volume (MCV)Ordered By: Dr. Ro on 07-16-2022 MCV (RBC) [Entitic vol] 97.3 fL 80-94 [facility] Hematocrit Auto (Bld) [Volum e fraction]Ordered By: Dr. Ro on 07-16-2022 Hematocrit (Bld) [Volume fraction] 46.8 % 40-54 [facility] Laboratory - Chemistry and C hemistry - challengeOrdered By: Dr. Ro on 07-16-2022 CO2 [Moles/Vol] 31.0 mmol/L 21.0-32.0 [facility] Magnesium [Mass/Vol] 2.2 mg/dL 1.6-2.6 [facility] Urea nitrogen/Creatinine [Mass ratio] 17.6 mg/mg 10-20 [facility] - Hematology and Cell countsOrdered By: Dr. Ro on 07-16-2022 Erythrocyte distribution width (RBC) [Entitic vol] 49.5 fL 35.1-43.9 [facility] Erythrocyte distribution width (RBC) [Ratio] 13.7 % 11.6-14.6 [facility] Immature granulocytes/100 WBC (Bld) 0.200 % 0.0-0.9 [facility] Comment on above: IG% - Immature Granu locytes (promyelocytes, myelocytes and metamyelocytes) > 1% indicates that a LEFT SHIFT is Present. MCH (RBC) [Entitic mass] 29.9 pg 27.0-32.0 [facility] Nucleated RBC/100 WBC (Bld) [Ratio] 0 % 0-5 [facility] MCHC Auto (RBC) [Mass/Vol]Or dered By: Dr. Ro on 07-16-2022 MCHC (RBC) [Mass/Vol] 30.8 g/dL 32-36 [facility] Magnesiumon 07-16-2022 Magnesium [Mass/Vol] 2.2 mg/dL Normal 1.6-2.6 [facility] Comment on above: Performed By: #### L 501.2300, L100.0100, L501.5200, L500.2500 ####[facility] [address] [place], [place], [id number] No Panel InformationOrdered By: Dr. Ro on 07-16-2022 Estimated Creatinine Clearance Calc 56.41 ml/min [facility] Estimated GFR (MDRD) Amer 65 mL/min >60 [facility] Comment on above: GFR Calc Estimated GFR (MDRD) Non-Af Amer 54 mL/min >60 [facility] Comment on above: Non- GFR Calc Phosphoruson 07-16-2022 Phosphate [Mass/Vol] 3.8 mg/dL Normal 2.5-4.9 [facility] Comment on above: Performed By: #### L 501.2300, L100.0100, L501.5200, L500.2500 ####[facility] [address] [place], [address] Platelets bldOrdered By: Dr. Ro on 07-16-2022 Platelets (Bld) [#/Vol] 215 10*3/uL 150-450 [facility] Serum or plasma calcium stacie urement (mass/volume)Ordered By: Dr. Ro on 07-16-2022 Calcium [Mass/Vol] 9.5 mg/dL 8.5-10.1 [facility] Serum or plasma creatinine m easurement (mass/volume)Ordered By: Dr. Ro on 07-16-2022 Creatinine [Mass/Vol] 1.42 mg/dL 0.70-1.30 [facility] Comment on above: The validity of the calculated GFR & GFRAA in patients over 70 years has not been determined. Clinical correlation is essential. Serum or plasma urea nitroge n measurement (mass/volume)Ordered By: Dr. Ro on 07-16-2022 Urea nitrogen [Mass/Vol] 25 mg/dL 7-18 [facility] Thin prep Papanicolaou smear with manual screeningOrdered By: Dr. Ro on 07-16-2022 Thin prep Papanicolaou smear with manual screening 4 5-15 [facility] Basophil percentageOrdered B y: Dr. Valderrama on 07-15-2022 Bilirubin [Mass/Vol] 1.20 mg/dL 0.20-1.00 [facility] Comment on above: For patients on eltr ombopag therapy, use of Dimension Sturgeon TBIL is not recommended. Cholesterol [Mass/Vol] 88 mg/dL <200 [facility] Comment on above: <200 mg/dL Desirable 200-240 mg/dL Borderline >240 mg/dL High Risk Protein [Mass/Vol] 6.6 g/dL 6.4-8.2 [facility] Triglyceride [Mass/Vol] 65 mg/dL <199 [facility] Comment on above: The drugs N-Acetylcy steine and Metamizole may falsely depress this assay.Serum Triglycerides Reference Interval Normal <150 mg/dL Borderline high 150 - 199 mg/dL High 200 - 499 mg/dL Very High > or = 500 mg/dL CBC W/Diff, Automatedon Absolute Lymph 1.94 X10 3/uL Normal 0.83-4.51 [facility] Comment on above: Performed By: #### L 500.4100, L501.9520, L500.4050, L100.0100 ####[facility] [address] [place], [address] Absolute Neut 5.4 X10 3/uL Normal 2.0-7.7 [facility] Comment on above: Performed By: #### L 500.4100, L501.9520, L500.4050, L100.0100 ####[facility] [address] [place], [address] Basophils/100 WBC (Bld) 0.4 % Normal 0-1 [facility] Comment on above: Performed By: #### L 500.4100, L501.9520, L500.4050, L100.0100 ####[facility] [address] [place], [address] Eosinophils/100 WBC (Bld) 1.9 % Normal 0-5 [facility] Comment on above: Performed By: #### L 500.4100, L501.9520, L500.4050, L100.0100 ####[facility] [address] [place], [address] Erythrocyte distribution width (RBC) [Ratio] 14.0 % Normal 11.6-14.6 [facility] Comment on above: Performed By: #### L 500.4100, L501.9520, L500.4050, L100.0100 ####[facility] [address] [place], [address] Hematocrit (Bld) [Volume fraction] 45.4 % Normal 40-54 [facility] Comment on above: Performed By: #### L 500.4100, L501.9520, L500.4050, L100.0100 ####[facility] [address] [place], [address] Hemoglobin (Bld) [Mass/Vol] 13.9 g/dL Normal 13.0-16.5 [facility] Comment on above: Performed By: #### L 500.4100, L501.9520, L500.4050, L100.0100 ####[facility] [address] [place], [address] IG% 0.400 Normal 0.0-0.9 [facility] Comment on above: Result Comment: IG% - Immature Granulocytes (promyelocytes, myelocytes and metamyelocytes) > 1% indicates that a LEFT SHIFT is Present. Performed By: #### L 500.4100, L501.9520, L500.4050, L100.0100 ####[facility] [address] [place], [address] Lymphocytes/100 WBC (Bld) 22.7 % Normal 19-41 [facility] Comment on above: Performed By: #### L 500.4100, L501.9520, L500.4050, L100.0100 ####[facility] [address] [place], [address] MCH (RBC) [Entitic mass] 30.2 pg Normal 27.0-32.0 [facility] Comment on above: Performed By: #### L 500.4100, L501.9520, L500.4050, L100.0100 ####[facility] [address] [place], [address] MCHC (RBC) [Mass/Vol] 30.6 g/dL Low 32-36 [facility] Comment on above: Performed By: #### L 500.4100, L501.9520, L500.4050, L100.0100 ####[facility] [address] [place], [address] MCV (RBC) [Entitic vol] 98.7 fL High 80-94 [facility] Comment on above: Performed By: #### L 500.4100, L501.9520, L500.4050, L100.0100 ####[facility] [address] [place], [address] Monocytes/100 WBC (Bld) 12.1 % High 0-10 [facility] Comment on above: Performed By: #### L 500.4100, L501.9520, L500.4050, L100.0100 ####[facility] [address] [place], [address] Neutrophils/100 WBC (Bld) 62.5 % Normal 47-70 [facility] Comment on above: Performed By: #### L 500.4100, L501.9520, L500.4050, L100.0100 ####[facility] [address] [place], [address] Nucleated RBC (Bld) [#/Vol] 0 10*3/uL Normal 0-5 [facility] Comment on above: Performed By: #### L 500.4100, L501.9520, L500.4050, L100.0100 ####[facility] [address] [place], [address] Platelet mean volume (Bld) [Entitic vol] 11.7 fL Normal 6.2-12.0 [facility] Comment on above: Performed By: #### L 500.4100, L501.9520, L500.4050, L100.0100 ####[facility] [address] [place], [address] Platelets (Bld) [#/Vol] 214 10*3/uL Normal 150-450 [facility] Comment on above: Performed By: #### L 500.4100, L501.9520, L500.4050, L100.0100 ####[facility] [address] [place], [address] RBC (Bld) [#/Vol] 4.60 10*6/uL Normal 4.6-6.2 [facility] Comment on above: Performed By: #### L 500.4100, L501.9520, L500.4050, L100.0100 ####[facility] [address] [place], [address] RDW SD 51.0 fl High 35.1-43.9 [facility] Comment on above: Performed By: #### L 500.4100, L501.9520, L500.4050, L100.0100 ####[facility] [address] [place], [address] WBC (Bld) [#/Vol] 8.5 10*3/uL Normal 4.4-11.0 [facility] Comment on above: Performed By: #### L 500.4100, L501.9520, L500.4050, L100.0100 ####[facility] [address] [place], [address] Comprehensive Metabolic Prof [facility] 07-15-2022 Albumin [Mass/Vol] 3.3 g/dL Normal 3.2-5.0 [facility] Comment on above: Performed By: #### L 500.4100, L501.9520, L500.4050, L100.0100 ####[facility] [address] [place], [address] Albumin/Globulin [Mass ratio] 1.0 {ratio} Normal 0.9-2.4 [facility] Comment on above: Performed By: #### L 500.4100, L501.9520, L500.4050, L100.0100 ####[facility] [address] [place], [address] ALK P 66 U/L Normal 45-117 [facility] Comment on above: Performed By: #### L 500.4100, L501.9520, L500.4050, L100.0100 ####[facility] [address] [place], [address] ALT [Catalytic activity/Vol] 34 U/L Normal 16-61 [facility] Comment on above: Performed By: #### L 500.4100, L501.9520, L500.4050, L100.0100 ####[facility] [address] [place], [address] AST [Catalytic activity/Vol] 33 U/L Normal 15-37 [facility] Comment on above: Performed By: #### L 500.4100, L501.9520, L500.4050, L100.0100 ####[facility] [address] [place], [address] Bilirubin [Mass/Vol] 1.20 mg/dL High 0.20-1.00 [facility] Comment on above: Result Comment: For patients on eltrombopag therapy, use of Dimension Sturgeon TBIL is not recommended. Performed By: #### L 500.4100, L501.9520, L500.4050, L100.0100 ####[facility] [address] [place], [address] BUN/CRE 15.9 RATIO Normal 10-20 [facility] Comment on above: Performed By: #### L 500.4100, L501.9520, L500.4050, L100.0100 ####[facility] [address] [place], [address] CA,Total 8.9 mg/dL Normal 8.5-10.1 [facility] Comment on above: Performed By: #### L 500.4100, L501.9520, L500.4050, L100.0100 ####[facility] [address] [place], [address] Chloride [Moles/Vol] 108 mmol/L High 98-107 [facility] Comment on above: Performed By: #### L 500.4100, L501.9520, L500.4050, L100.0100 ####[facility] [address] [place], [address] CO2 [Moles/Vol] 30.0 mmol/L Normal 21.0-32.0 [facility] Comment on above: Performed By: #### L 500.4100, L501.9520, L500.4050, L100.0100 ####[facility] [address] [place], [address] Creatinine [Mass/Vol] 1.26 mg/dL Normal 0.70-1.30 [facility] Comment on above: Result Comment: The validity of the calculated GFR GFRAA in patients over 70 years has not been determined. Clinical correlation is essential. Performed By: #### L 500.4100, L501.9520, L500.4050, L100.0100 ####[facility] [address] [place], [address] ECRCL 63.57 ml/min Normal [facility] Comment on above: Performed By: #### L 500.4100, L501.9520, L500.4050, L100.0100 ####[facility] [address] [place], [address] EST GFR - AA 75 mL/min Normal >60 [facility] Comment on above: Result Comment: Afri can Albanian GFR Calc Performed By: #### L 500.4100, L501.9520, L500.4050, L100.0100 ####[facility] [address] [place], [address] GAP 3 Low 5-15 [facility] Comment on above: Performed By: #### L 500.4100, L501.9520, L500.4050, L100.0100 ####[facility] [address] [place], [address] GFR/1.73 sq M.predicted among non-blacks MDRD (S/P/Bld) [Vol rate/Area] 62 mL/min/{1.73_m2} Normal >60 [facility] Comment on above: Result Comment: Non- GFR Calc Performed By: #### L 500.4100, L501.9520, L500.4050, L100.0100 ####[facility] [address] [place], [address] Globulin (S) [Mass/Vol] 3.3 g/dL Normal 2.2-4.2 [facility] Comment on above: Performed By: #### L 500.4100, L501.9520, L500.4050, L100.0100 ####[facility] [address] [place], [address] Glucose [Mass/Vol] 90 mg/dL Normal 74-106 [facility] Comment on above: Performed By: #### L 500.4100, L501.9520, L500.4050, L100.0100 ####[facility] [address] [place], [address] Potassium [Moles/Vol] 3.8 mmol/L Normal 3.5-5.1 [facility] Comment on above: Performed By: #### L 500.4100, L501.9520, L500.4050, L100.0100 ####[facility] [address] [place], [address] Sodium [Moles/Vol] 141 mmol/L Normal 136-145 [facility] Comment on above: Performed By: #### L 500.4100, L501.9520, L500.4050, L100.0100 ####[facility] [address] [place], [address] T PROT 6.6 g/dL Normal 6.4-8.2 [facility] Comment on above: Performed By: #### L 500.4100, L501.9520, L500.4050, L100.0100 ####[facility] [address] [place], [address] Urea nitrogen [Mass/Vol] 20 mg/dL High 7-18 [facility] Comment on above: Performed By: #### L 500.4100, L501.9520, L500.4050, L100.0100 ####[facility] [address] [place], [address] L501.4020on 07-15-2022 TROPONIN-I HS 70 pg/mL Normal 3.0-78.0 [facility] Comment on above: Order Comment: Comme nts: SPECIMEN #3'TROP' Serial specimen #1, #2 or #3: 3 Result Comment: Plea se Note: New Test Units and Gender Specific Reference Ranges. For more information see Policy Stat Procedure Sturgeon High Sensitivity Troponin (TNIH) and attachments. Performed By: #### L 501.4020 ####[facility] [address] [place], [address] TROPONIN-I HS 70 pg/mL Normal 3.0-78.0 [facility] Comment on above: Order Comment: Comme nts: SPECIMEN #2 'TROP' Serial specimen #1, #2 or #3: 2 Result Comment: Plea se Note: New Test Units and Gender Specific Reference Ranges. For more information see Policy Stat Procedure Sturgeon High Sensitivity Troponin (TNIH) and attachments. Performed By: #### L 501.4020 #### [facility] [address] [place], [address] Laboratory - Chemistry and C hemistry - challengeOrdered By: Dr. Valderrama on 07-15-2022 ALP [Catalytic activity/Vol] 66 U/L 45-117 [facility] ALT [Catalytic activity/Vol] 34 U/L 16-61 [facility] Globulin (S) [Mass/Vol] 3.3 g/dL 2.2-4.2 [facility] Lipid Profileon 07-15-2022 Cholesterol [Mass/Vol] 88 mg/dL Normal 200 [facility] Comment on above: Result Comment: <200 mg/dL Desirable 200-240 mg/dL Borderline >240 mg/dL High Risk Performed By: #### L 500.4100, L501.9520, L500.4050, L100.0100 ####[facility] [address] [place], [address] Cholesterol in HDL [Mass/Vol] 27 mg/dL Low [facility] Comment on above: Result Comment: The drugs N-Acetylcysteine and Metamizole may falsely depress this assay. Reference Range HDL <40 mg/dL Low HDL Cholesterol HDL >or= 60 mg/dL High HDL Cholesterol Performed By: #### L 500.4100, L501.9520, L500.4050, L100.0100 ####[facility] [address] [place], [address] Cholesterol in LDL [Mass/Vol] 48 mg/dL Normal 0-130 [facility] Comment on above: Performed By: #### L 500.4100, L501.9520, L500.4050, L100.0100 ####[facility] [address] [place], [address] Cholesterol in VLDL [Mass/Vol] 13 mg/dL Normal 5-40 [facility] Comment on above: Performed By: #### L 500.4100, L501.9520, L500.4050, L100.0100 ####[facility] [address] [place], [address] Triglyceride [Mass/Vol] 65 mg/dL Normal [facility] Comment on above: Result Comment: The drugs N-Acetylcysteine and Metamizole may falsely depress this assay. Serum Triglycerides Reference Interval Normal <150 mg/dL Borderline high 150 - 199 mg/dL High 200 - 499 mg/dL Very High > or = 500 mg/dL Performed By: #### L 500.4100, L501.9520, L500.4050, L100.0100 ####[facility] [address] [place], [address] No Panel InformationOrdered By: Dr. Valderrama on 07-15-2022 Thyroid Stimulating Hormone (TSH) 2.51 uIU/mL 0.358-3.74 [facility] Troponin I High Sensitivity 70 pg/mL 3.0-78.0 [facility] Comment on above: Please Note: New Taryn t Units and Gender Specific Reference Ranges. For more information see Policy Stat Procedure Sturgeon High Sensitivity Troponin (TNIH) and attachments. Serum or plasma albumin stacie urement (mass/volume)Ordered By: Dr. Valderrama on 07-15-2022 Albumin [Mass/Vol] 3.3 g/dL 3.2-5.0 [facility] Serum or plasma albumin/glob ulin mass ratioOrdered By: Dr. Valderrama on 07-15-2022 Albumin/Globulin [Mass ratio] 1.0 {ratio} 0.9-2.4 [facility] Serum or plasma cholesterol in HDL measurement (mass/volume)Ordered By: Dr. Valderrama on 07-15-2022 Cholesterol in HDL [Mass/Vol] 27 mg/dL >40 [facility] Comment on above: The drugs N-Acetylcy steine and Metamizole may falsely depress this assay. Reference Range HDL <40 mg/dL Low HDL Cholesterol HDL >or= 60 mg/dL High HDL Cholesterol Serum or plasma cholesterol in VLDL measurement (mass/volume)Ordered By: Dr. Valderrama on 07-15-2022 Cholesterol in VLDL [Mass/Vol] 13 mg/dL 5-40 [facility] Serum or plasma low density lipoprotein (LDL) cholesterol measurement (mass/volume)Ordered By: Dr. Valderrama on 07-15-2022 Cholesterol in LDL [Mass/Vol] 48 mg/dL 0-130 [facility] Thin prep Papanicolaou smear with manual screeningOrdered By: Dr. Valderrama on 07-15-2022 Thin prep Papanicolaou smear with manual screening 33 U/L 15-37 [facility] Thyroid Stim Hormone (TSH)on 07-15-2022 TSH 2.51 uIU/mL Normal 0.358-3.74 [facility] Comment on above: Performed By: #### L 500.4100, L501.9520, L500.4050, L100.0100 ####[facility] [address] [facility] [place], [address] 12 Lead EKGon 07-14-2022 12 Lead EKG [facility] [address] [place] [address] 12 Lead EKG 07/14/22 1718 MR#: [id number] Acct: [id number] Name: SCARLETT LANDRY Rep #: [id number] : 1960 62 From: Whitley Dobson MD Attending Dr: Dr. Khai Ro MD Status: ADM IN Ordering Dr: Marques Moise DO Date: 07/14/22 Location: [facility] Sex: M C Admitted: 07/14/22 Test [...] ECG Confirmed by HUSSEIN HUBBARD, SHERIF ([id number]), photo editor ESSIE WEINSTEIN ([id number]) on 07/16/2022 9:52:40 AM Referred By: DK Confirmed By:WALESKA DOBSON MD 07/16/22 0952 Date Whitley Dobson MD CC: Dr. Khai Ro MD; Dr. Marques Moise DO; No Primary Care Physician Signed Normal [facility] Absolute lymphocyte countOrd ered By: Dr. oMise on 07-14-2022 Lymphocytes Auto (Unsp spec) [#/Vol] 2.21 10*3/uL 0.83-4.51 [facility] BNP,B-Type NATRIURETIC PEPTI Paulino 07-14-2022 Natriuretic peptide B (Bld) [Mass/Vol] 896.0 pg/mL High 0-100 [facility] Comment on above: Performed By: #### L 501.4020, L100.0100, L500.2500, L503.6620 #### [facility] [address] [place], [address] Basic Metabolic Profile (BMP )on 07-14-2022 BUN/CRE 17.2 RATIO Normal 10-20 [facility] Comment on above: Order Comment: 'TROP ' Serial specimen #1, #2 or #3: 1 Performed By: #### L 501.4020, L100.0100, L500.2500, L503.6620 #### [facility] [address] [place], [address] CA,Total 9.8 mg/dL Normal 8.5-10.1 [facility] Comment on above: Order Comment: 'TROP ' Serial specimen #1, #2 or #3: 1 Performed By: #### L 501.4020, L100.0100, L500.2500, L503.6620 #### [facility] [address] [place], [address] Chloride [Moles/Vol] 109 mmol/L High 98-107 [facility] Comment on above: Order Comment: 'TROP ' Serial specimen #1, #2 or #3: 1 Performed By: #### L 501.4020, L100.0100, L500.2500, L503.6620 #### [facility] [address] [place], [address] CO2 [Moles/Vol] 28.0 mmol/L Normal 21.0-32.0 [facility] Comment on above: Order Comment: 'TROP ' Serial specimen #1, #2 or #3: 1 Performed By: #### L 501.4020, L100.0100, L500.2500, L503.6620 #### [facility] [address] [place], [address] Creatinine [Mass/Vol] 1.28 mg/dL Normal 0.70-1.30 [facility] Comment on above: Order Comment: 'TROP ' Serial specimen #1, #2 or #3: 1 Result Comment: The validity of the calculated GFR GFRAA in patients over 70 years has not been determined. Clinical correlation is essential. Performed By: #### L 501.4020, L100.0100, L500.2500, L503.6620 #### [facility] [address] [place], [address] ECRCL 62.58 ml/min Normal [facility] Comment on above: Order Comment: 'TROP ' Serial specimen #1, #2 or #3: 1 Performed By: #### L 501.4020, L100.0100, L500.2500, L503.6620 #### [facility] [address] [place], [address] EST GFR - AA 73 mL/min Normal >60 [facility] Comment on above: Order Comment: 'TROP ' Serial specimen #1, #2 or #3: 1 Result Comment: Afri can Albanian GFR Calc Performed By: #### L 501.4020, L100.0100, L500.2500, L503.6620 #### [facility] [address] [place], [address] GAP 5 Normal 5-15 [facility] Comment on above: Order Comment: 'TROP ' Serial specimen #1, #2 or #3: 1 Performed By: #### L 501.4020, L100.0100, L500.2500, L503.6620 #### [facility] [address] [place], [address] GFR/1.73 sq M.predicted among non-blacks MDRD (S/P/Bld) [Vol rate/Area] 61 mL/min/{1.73_m2} Normal >60 [facility] Comment on above: Order Comment: 'TROP ' Serial specimen #1, #2 or #3: 1 Result Comment: Non- GFR Calc Performed By: #### L 501.4020, L100.0100, L500.2500, L503.6620 #### [facility] [address] [place], [address] Glucose [Mass/Vol] 87 mg/dL Normal 74-106 [facility] Comment on above: Order Comment: 'TROP ' Serial specimen #1, #2 or #3: 1 Performed By: #### L 501.4020, L100.0100, L500.2500, L503.6620 #### [facility] [address] [place], [address] Potassium [Moles/Vol] 4.2 mmol/L Normal 3.5-5.1 [facility] Comment on above: Order Comment: 'TROP ' Serial specimen #1, #2 or #3: 1 Performed By: #### L 501.4020, L100.0100, L500.2500, L503.6620 #### [facility] [address] [place], [address] Sodium [Moles/Vol] 142 mmol/L Normal 136-145 [facility] Comment on above: Order Comment: 'TROP ' Serial specimen #1, #2 or #3: 1 Performed By: #### L 501.4020, L100.0100, L500.2500, L503.6620 #### [facility] [address] [place], [address] Urea nitrogen [Mass/Vol] 22 mg/dL High 7-18 [facility] Comment on above: Order Comment: 'TROP ' Serial specimen #1, #2 or #3: 1 Performed By: #### L 501.4020, L100.0100, L500.2500, L503.6620 #### [facility] [address] [place], [place], [address] Basophil percentageOrdered B y: Dr. Moise on 07-14-2022 Basophils/100 WBC (Bld) 0.4 % 0-1 [facility] Chloride [Moles/Vol] 109 mmol/L 98-107 [facility] Eosinophils/100 WBC (Bld) 1.1 % 0-5 [facility] Glucose [Mass/Vol] 87 mg/dL 74-106 [facility] Neutrophils (Bld) [#/Vol] 5.7 10*3/uL 2.0-7.7 [facility] Neutrophils/100 WBC (Bld) 62.5 % 47-70 [facility] Potassium [Moles/Vol] 4.2 mmol/L 3.5-5.1 [facility] Sodium [Moles/Vol] 142 mmol/L 136-145 [facility] WBC (Bld) [#/Vol] 9.1 10*3/uL 4.4-11.0 [facility] Blood erythrocytes count (nu mber/volume)Ordered By: Dr. Moise on 07-14-2022 RBC (Bld) [#/Vol] 4.99 10*6/uL 4.6-6.2 [facility] Blood hemoglobin measurement (mass/volume)Ordered By: Dr. Moise on 07-14-2022 Hemoglobin (Bld) [Mass/Vol] 15.4 g/dL 13.0-16.5 [facility] Blood lymphocytes/100 leukoc ytesOrdered By: Dr. Moise on 07-14-2022 Lymphocytes/100 WBC (Bld) 24.4 % 19-41 [facility] Blood monocytes/100 leukocyt esOrdered By: Dr. Moise on 07-14-2022 Monocytes/100 WBC (Bld) 11.4 % 0-10 [facility] Blood platelet mean volumeOr dered By: Dr. Moise on 07-14-2022 Platelet mean volume (Bld) [Entitic vol] 11.7 fL 6.2-12.0 [facility] CBC W/Diff, Automatedon 04-0 3-2022 Absolute Lymph 2.21 X10 3/uL Normal 0.83-4.51 [facility] Comment on above: Performed By: #### L 501.4020, L100.0100, L500.2500, L503.6620 #### [facility] [address] [place], [address] Absolute Neut 5.7 X10 3/uL Normal 2.0-7.7 [facility] Comment on above: Performed By: #### L 501.4020, L100.0100, L500.2500, L503.6620 #### [facility] [address] [place], [address] Basophils/100 WBC (Bld) 0.4 % Normal 0-1 [facility] Comment on above: Performed By: #### L 501.4020, L100.0100, L500.2500, L503.6620 #### [facility] [address] [place], [address] Eosinophils/100 WBC (Bld) 1.1 % Normal 0-5 [facility] Comment on above: Performed By: #### L 501.4020, L100.0100, L500.2500, L503.6620 #### [facility] [address] [place], [address] Erythrocyte distribution width (RBC) [Ratio] 14.0 % Normal 11.6-14.6 [facility] Comment on above: Performed By: #### L 501.4020, L100.0100, L500.2500, L503.6620 #### [facility] [address] [place], [address] Hematocrit (Bld) [Volume fraction] 48.8 % Normal 40-54 [facility] Comment on above: Performed By: #### L 501.4020, L100.0100, L500.2500, L503.6620 #### [facility] [address] [place], [address] Hemoglobin (Bld) [Mass/Vol] 15.4 g/dL Normal 13.0-16.5 [facility] Comment on above: Performed By: #### L 501.4020, L100.0100, L500.2500, L503.6620 #### [facility] [address] [place], [address] IG% 0.200 Normal 0.0-0.9 [facility] Comment on above: Result Comment: IG% - Immature Granulocytes (promyelocytes, myelocytes and metamyelocytes) > 1% indicates that a LEFT SHIFT is Present. Performed By: #### L 501.4020, L100.0100, L500.2500, L503.6620 #### [facility] [address] [place], [address] Lymphocytes/100 WBC (Bld) 24.4 % Normal 19-41 [facility] Comment on above: Performed By: #### L 501.4020, L100.0100, L500.2500, L503.6620 #### [facility] [address] [place], [address] MCH (RBC) [Entitic mass] 30.9 pg Normal 27.0-32.0 [facility] Comment on above: Performed By: #### L 501.4020, L100.0100, L500.2500, L503.6620 #### [facility] [address] [place], [address] MCHC (RBC) [Mass/Vol] 31.6 g/dL Low 32-36 [facility] Comment on above: Performed By: #### L 501.4020, L100.0100, L500.2500, L503.6620 #### [facility] [address] [place], [address] MCV (RBC) [Entitic vol] 97.8 fL High 80-94 [facility] Comment on above: Performed By: #### L 501.4020, L100.0100, L500.2500, L503.6620 #### [facility] [address] [place], [address] Monocytes/100 WBC (Bld) 11.4 % High 0-10 [facility] Comment on above: Performed By: #### L 501.4020, L100.0100, L500.2500, L503.6620 #### [facility] [address] [place], [address] Neutrophils/100 WBC (Bld) 62.5 % Normal 47-70 [facility] Comment on above: Performed By: #### L 501.4020, L100.0100, L500.2500, L503.6620 #### [facility] [address] [place], [address] Nucleated RBC (Bld) [#/Vol] 0 10*3/uL Normal 0-5 [facility] Comment on above: Performed By: #### L 501.4020, L100.0100, L500.2500, L503.6620 #### [facility] [address] [place], [address] Platelet mean volume (Bld) [Entitic vol] 11.7 fL Normal 6.2-12.0 [facility] Comment on above: Performed By: #### L 501.4020, L100.0100, L500.2500, L503.6620 #### [facility] [address] [place], [address] Platelets (Bld) [#/Vol] 238 10*3/uL Normal 150-450 [facility] Comment on above: Performed By: #### L 501.4020, L100.0100, L500.2500, L503.6620 #### [facility] [address] [place], [address] RBC (Bld) [#/Vol] 4.99 10*6/uL Normal 4.6-6.2 [facility] Comment on above: Performed By: #### L 501.4020, L100.0100, L500.2500, L503.6620 #### [facility] [address] [place], [address] RDW SD 50.2 fl High 35.1-43.9 [facility] Comment on above: Performed By: #### L 501.4020, L100.0100, L500.2500, L503.6620 #### [facility] [address] [place], [address] WBC (Bld) [#/Vol] 9.1 10*3/uL Normal 4.4-11.0 [facility] Comment on above: Performed By: #### L 501.4020, L100.0100, L500.2500, L503.6620 #### [facility] [address] [place], [address] DAHLIAOVdavid 07-14-2022 CNOV Office Visit (UCWSTR ) SCARLETT LANDRY ([id number]) 1960 M Date Time Provider Department 07/14/22 3:15 PM MICHELLE FIGUEROA [facility] During your visit today, we recorded the following information about you: Temperature Pulse Respiration Blood pressure 98 degrees 92/minute 18/minute 138/98 Weight 134.7 kg Michelle Figueroa PA-C 07/14/2022 3:05 PM Signed Patient [facility] tri[facility] with a chief complaint of shortness [...] emergency department. His will take him to [facility]. Vital signs stable here. BP 138/98 Pulse [...] Status:Closed by MICHELLE FIGUEROA on 07/14/22 Normal [facility] Chest 1 View (Portable)on Chest 1 View (Portable) [facility] Imaging Services [address] [place] [address] Chest 1 View (Portable) MR#: [id number] Acct: [id number] Name: SCARLETT LANDRY Rep #: [id number] : 1960 M 62 From: Steven Meek MD PCP: Care Physician,No Primary Status: REG ER Study: Chest 1 View (Portable) Date of Exam: 07/14/22 Exam# [id number] Ordering Dr: Marques Moise DO STUDY: X-RAY [...] Marques Moise, ; No Primary Care Physician Shark Biologist: Signed Normal [facility] Determination of erythrocyte mean corpuscular volume (MCV)Ordered By: Dr. Moise on 07-14-2022 MCV (RBC) [Entitic vol] 97.8 fL 80-94 [facility] Echo Complete W/ Contraston 07-14-2022 Echo Complete W/ Contrast [facility] [address] [place] [address] Echo Complete W/ Contrast 07/15/22 0946 MR#: [id number] Acct: [id number] Name: SCARLETT LANDRY Rep #: [id number] : 1960 62 From: Whitley Dobson MD [...] Physician Date Dictated: 07/15/2246 Date Transcribed: 07/15/221611 Shark Biologist: Signed Normal [facility] Emergency Department Summary on 07-14-2022 Emergency Department Summary [facility] Medical Records Department [address] [facility] [place] [address] Emergency Department Summary 07/14/22 MR#: [id number] Acct: [id number] Name: SCARLETT LANDRY Rep #: [id number] : 1960 62 From: Marques Moise DO PCP: Care Physician,No Primary Status:ADM IN Location: [address] History of Present Illness Chief Complaint: [...] % (Auto) 62.5 Lymph % (Auto) 24.4 [place] % (Auto) 11.4 H Eos % (Auto) [...] or in (more content not included)... Normal [facility] H&P Exam - Hospitalist [facility] Medical Records Department [address] [place] [address] H P Exam - Hospitalist 07/14/221940 MR#: [id number] Acct: [id number] Name: SCARLETT LANDRY Rep #: [id number] : 1960 62 From: Aren Valderrama MD PCP: Care Physician,No Primary Status:ADM IN Location: [facility] [id number] HPI - General General Date of Admission: [...] % (Auto) 62.5, Lymph % (Auto) 24.4, [place] % (Auto) 11.4 H, Eos % (Auto) [...] and independently (more content not included)... Normal [facility] Hematocrit Auto (Bld) [Volum e fraction]Ordered By: Dr. Moise on 07-14-2022 Hematocrit (Bld) [Volume fraction] 48.8 % 40-54 [facility] L501.4020on 07-14-2022 TROPONIN-I HS 73 pg/mL Normal 3.0-78.0 [facility] Comment on above: Order Comment: 'TROP ' Serial specimen #1, #2 or #3: 1 Result Comment: Minh zuniga Note: New Test Units and Gender Specific Reference Ranges. For more information see Policy Stat Procedure Sturgeon High Sensitivity Troponin (TNIH) and attachments. Performed By: #### L 501.4020, L100.0100, L500.2500, L503.6620 #### [facility] [address] [place] [address]. [place], [address] Laboratory - Chemistry and C hemistry - challengeOrdered By: Dr. Moise on 07-14-2022 CO2 [Moles/Vol] 28.0 mmol/L 21.0-32.0 [facility] Natriuretic peptide B (Bld) [Mass/Vol] 896.0 pg/mL 0-100 [facility] Urea nitrogen/Creatinine [Mass ratio] 17.2 mg/mg 10-20 [facility] - Hematology and Cell countsOrdered By: Dr. Moise on 07-14-2022 Erythrocyte distribution width (RBC) [Entitic vol] 50.2 fL 35.1-43.9 [facility] Erythrocyte distribution width (RBC) [Ratio] 14.0 % 11.6-14.6 [facility] Immature granulocytes/100 WBC (Bld) 0.200 % 0.0-0.9 [facility] Comment on above: IG% - Immature Granu locytes (promyelocytes, myelocytes and metamyelocytes) > 1% indicates that a LEFT SHIFT is Present. MCH (RBC) [Entitic mass] 30.9 pg 27.0-32.0 [facility] Nucleated RBC/100 WBC (Bld) [Ratio] 0 % 0-5 [facility] MCHC Auto (RBC) [Mass/Vol]Or dered By: Dr. Moise on 07-14-2022 MCHC (RBC) [Mass/Vol] 31.6 g/dL 32-36 [facility] No Panel InformationOrdered By: Dr. Moise on 07-14-2022 Estimated Creatinine Clearance Calc 62.58 ml/min [facility] Estimated GFR (MDRD) Amer 73 mL/min >60 [facility] Comment on above: GFR Calc Estimated GFR (MDRD) Non-Af Amer 61 mL/min >60 [facility] Comment on above: Non- GFR Calc Troponin I High Sensitivity 73 pg/mL 3.0-78.0 [facility] Comment on above: Please Note: New Taryn t Units and Gender Specific Reference Ranges. For more information see Policy Stat Procedure Sturgeon High Sensitivity Troponin (TNIH) and attachments. Platelets bldOrdered By: Dr. Moise on 07-14-2022 Platelets (Bld) [#/Vol] 238 10*3/uL 150-450 [facility] Serum or plasma calcium stacie urement (mass/volume)Ordered By: Dr. Moise on 07-14-2022 Calcium [Mass/Vol] 9.8 mg/dL 8.5-10.1 [facility] Serum or plasma creatinine m easurement (mass/volume)Ordered By: Dr. Moise on 07-14-2022 Creatinine [Mass/Vol] 1.28 mg/dL 0.70-1.30 [facility] Comment on above: The validity of the calculated GFR & GFRAA in patients over 70 years has not been determined. Clinical correlation is essential. Serum or plasma urea nitroge n measurement (mass/volume)Ordered By: Dr. Moise on 07-14-2022 Urea nitrogen [Mass/Vol] 22 mg/dL 7- [facility] Thin prep Papanicolaou smear with manual screeningOrdered By: Dr. Moise on 07-14-2022 Thin prep Papanicolaou smear with manual screening 5 -15 [facility] Vital Signs Date Time Vital Sign Value Performing Clinician Facility 07-30-2022 09:37-0400 Body height 177.[address] Marques Moise Work Phone: [facility] 07-30-2022 09:37-0400 Body mass index (BMI) [Ratio] 36.7 kg/m2 Dr. Marques Moise Work Phone: [phone] [place] [address] 07-30-2022 09:37-0400 Body weight 116.[address] Marques Moise Work Phone: [facility] 07-30-2022 09:37-0400 Diastolic blood pressure 79 mm[Hg] Dr. Marques Moise Work Phone: [facility] 07-30-2022 09:37-0400 Heart rate 71 /min Dr. Marques Moise Work Phone: [phone] [place] [address] 07-30-2022 09:37-0400 Respiratory rate 18 /min Dr. Marques Moise Work Phone: [facility] 07-30-2022 09:37-0400 Systolic blood pressure 114 mm[Hg] Dr. Marques Moise Work Phone: [facility] 07-16-2022 15:44-0400 Body temperature 97.5 [degF] Dr. Marques Moise Work Phone: [facility] 07-16-2022 15:44-0400 Diastolic blood pressure 90 mm[Hg] Dr. Marques Moise Work Phone: [facility] 07-16-2022 15:44-0400 Heart rate 77 /min Dr. Marques Moise Work Phone: [facility] 07-16-2022 15:44-0400 Respiratory rate 18 /min Dr. Marques Moise Work Phone: [facility] 07-16-2022 15:44-0400 SaO2% (BldA) [Mass fraction] 97 % Dr. Marques Moise Work Phone: [facility] 07-16-2022 15:44-0400 Systolic blood pressure 131 mm[Hg] Dr. Marques Moise Work Phone: [facility] 07-16-2022 06:00-0400 Body mass index (BMI) [Ratio] 39.6 kg/m2 Dr. Marques Moise Work Phone: [facility] 07-16-2022 06:00-0400 Body weight 125.[address] Marques Moise Work Phone: [facility] 07-15-2022 12:01-0400 Body height 177.[address] Marques Moise Work Phone: [facility] 07-14-2022 19:55-0400 Body temperature 98.3 [degF] [facility] 07-14-2022 19:55-0400 Diastolic blood pressure 90 mm[Hg] [facility] 07-14-2022 19:55-0400 Heart rate 77 /min [facility] 07-14-2022 19:55-0400 Respiratory rate 18 /min [facility] 07-14-2022 19:55-0400 SaO2% (BldA) [Mass fraction] 98 % [facility] 07-14-2022 19:55-0400 Systolic blood pressure 160 mm[Hg] [facility] 07-14-2022 15:25-0400 Body height 177.8 cm [facility] 07-14-2022 15:25-0400 Body mass index (BMI) [Ratio] 42.6 kg/m2 [facility] 07-14-2022 15:25-0400 Body weight 134.74 kg [facility] 07-14-2022 14:55-0400 Body temperature 98.01 [degF] Michelle Figueroa PA-C Work Phone: [facility] 07-14-2022 14:55-0400 Body weight 134.72 kg Michelle Athy PA-C Work Phone: [facility] 07-14-2022 14:55-0400 Diastolic blood pressure 98 mm[Hg] Michelle Athy PA-C Work Phone: [facility] 07-14-2022 14:55-0400 Heart rate 92 /min Michelle Athy PA-C Work Phone: [facility] 07-14-2022 14:55-0400 Respiratory rate 18 /min Michelle Athy PA-C Work Phone: [facility] 07-14-2022 14:55-0400 SaO2% (BldA) [Mass fraction] 97 % Michellejavi Johnsony PA-C Work Phone: [facility] 07-14-2022 14:55-0400 Systolic blood pressure 138 mm[Hg] Michelle Johnsony PA-C Work Phone: [facility] Encounters Encounter Date Encounter Type Care Provider Facility Start: 10-30-2022 ambulatory Benito Haywood CRITICAL CARE PHYSICIAN Facility :[facility] Start: 10-30-2022 Non-patient / Non-visit Dr. Ramírez Work Phone: [facility] Work Phone: Start: 10-29-2022 ambulatory Tim Paul Facility:[facility] Start: 10-29-2022 Non-patient / Non-visit Dr. Ramírez Work Phone: [facility] Start: 10-29-2022 End: 10-29-[address] Marques Moise Work Phone: [facility] Work Phone: Start: 10-29-2022 End: 10-29-[address] [facility] Work [facility]: Start: 08-11-2022 ambulatory Benito Haywood CRITICAL CARE PHYSICIAN Facility :[facility] Start: 08-11-2022 Non-patient / Non-visit Dr. Ramírez Work Phone: [facility] Start: 08-07-2022 End: 08-07-[address] Marques Moise Work Phone: [facility] Work Phone: Start: 08-07-2022 End: 08-07-[address] Marques Moise Work Phone: [facility] Start: 08-07-2022 Non-patient / Non-visit Dr. Ramírez Work Phone: [facility] Start: 07-30-2022 End: 07-30-2022 ambulatory Benito Haywood NP Facility:[facility] Start: 07-30-2022 End: 07-30-[address] Marques Moise Work Phone: [facility] Start: 07-16-2022 Non-patient / Non-visit Dr. Ramírez Work Phone: [facility] Start: 07-16-2022 Non-patient / Non-visit Dr. Ramírez Work Phone: [facility] Start: 07-15-2022 ambulatory No Primary Car e Physician Facility:[facility] Start: 07-15-2022 Non-patient / Non-visit Dr. Ramírez Work Phone: [facility] Start: 07-15-2022 Non-patient / Non-visit Dr. Ramírez Work Phone: [facility] Start: 07-14-2022 ambulatory No Primary Car e Physician Facility:[facility] Start: 07-14-2022 End: 07-16-2022 Evaluation and management of inpatient No Primary Care Physician Facility:[facility] Start: 07-14-2022 End: 07-16-2022 Evaluation and management of inpatient [facility] Start: 07-14-2022 End: 07-14-2022 ambulatory Facility:[facility] Start: 07-14-2022 End: 07-14-2022 Patient encounter procedure Michelle Figueroa PA-C Work Phone: [facility] Comment on above: Peripheral edema (Pr imary Dx); SOB (shortness of breath) Procedures Date Procedure Procedure Detail Performing Clinician Start: 08-07-2022 Cardiovascular stres s test using pharmacologic stress agent Dr. Marques Moise Work Phone: Start: 07-14-2022 Plain chest X-ray Plan of Treatment Date Care Activity Detail Author Start: 12-12-2022 Influenza vaccination INFLUENZA (Season Ended) [facility] Start: 07-16-2022 Patient discharge [facility] Start: 07-16-2022 Referral to division service manager [facility] Start: 07-16-2022 [facility] Start: 07-14-2022 Following clinical pathway protocol [facility] Start: 07-14-2022 Application of elastic bandage [facility] Start: 07-14-2022 Assessment of risk of venous thromboembolism [facility] Start: 07-14-2022 Catheterization of vein [facility] Start: 07-14-2022 Elevation of affected extremity [facility] Start: 07-14-2022 Insertion of catheter into peripheral vein [facility] Start: 07-14-2022 Measuring intake and output [facility] Start: 07-14-2022 Notification of physician [facility] Start: 07-14-2022 Oxygen therapy [facility] Start: 07-14-2022 Patient education [facility] Start: 07-14-2022 Providing care according to standard [facility] Start: 07-14-2022 Provision of activity privileges [facility] Start: 07-14-2022 [facility] Start: 07-14-2022 Verification routine [facility] Start: 07-14-2022 Admission procedure [facility] Start: 07-14-2022 [facility] Start: 04-13-2022 DEPRESSION ASSESSMENT DEPRESSION ASSESSMENT [facility] Start: 01-30-2016 PROSTATE CANCER SCREENING DISCUSSION PROSTATE CANCER SCREENING DISCUSSION [facility] Start: 2011 SHINGRIX VACCINE (1 of 2) SHINGRIX VACCINE (1 of 2) [facility] Start: 2006 COLOGUARD (FIT-DNA) COLOGUARD (FIT-DNA) [facility] Start: 2006 Colonoscopy COLONOSCOPY [facility] Start: 2006 COLORECTAL CANCER SCREENING COLORECTAL CANCER SCREENING [facility] Start: [address] COLONOGRAPHY [facility] Start: 2006 DIABETES SCREEN DIABETES SCREEN [facility] Start: 2006 FECAL OCCULT BLOOD FECAL OCCULT BLOOD [facility] Start: 2006 SIGMOIDOSCOPY SIGMOIDOSCOPY [facility] Start: 01-30-1996 LIPID SCREEN LIPID SCREEN [facility] Start: 01-30-1980 Urine microalbumin profile DTAP,TDAP,TD (1 - Tdap) [facility] Start: 1979 HEPATITIS C SCREENING HEPATITIS C SCREENING [facility] Start: 1979 HIV SCREENING HIV SCREENING [facility] Start: 1960 COVID-19 VACCINE (#1) COVID-19 VACCINE (#1) [facility] Patient referral [facility] Work Phone: [phone] [facility] Payers Date Payer Category Payer Self-pay [id number] 2022 Self-pay Unknown [id number] 2.16.8 [id number] Unknown [id number] 2.16.8 [id number] Unknown [id number] 2.16.8 [id number] Unknown [id number] 2.16.8 [id number] Unknown [id number] 2.16.8 [id number] Unknown [id number] 2.16.8 [id number] Unknown [id number] 2.16.8 [id number] Unknown [id number] 2.16.8 [id number] Unknown [id number] 2.16.8 [id number] Unknown [id number] 2.16.8 [id number] Unknown [id number] 2.16.8 [id number] Unknown [id number] 2.16.8 [id number] Unknown [id number] 2.16.8 [id number] Social History Date Type Detail Facility Start: 07-14-2022 End: 07-30-2022 Tobacco smoking status MEIS Unknown if ever smoked [facility] Start: 1960 Sex Assigned At Male [facility] Start: 07-14-2022 [facility] History of tobacco use Current smoker [facility] History of tobacco use Cigarette Smoker [facility] Start: 07-14-2022 Tobacco use and exposure Smokeless tobacco non-user [facility] Start: 07-14-2022 Alcohol intake Not Asked [facility] Start: 1960 Sex Assigned At Not on file [facility] Goals Date Patient Goal Desired Activity /State Functional Status Date Assessment Result Facility 07-16-2022 Functional status Ambulates [facility] Work Phone: Mental Status Date Assessment Result Facility 07-16-2022 Cognitive function Voice/Name [facility] Work Phone: 07-14-2022 Cognitive function Level Of Cons ciousness Awake;Alert;Appropriate;Follow s Commands [facility] Work Phone: Clinical Notes 07-14-2022 to 07-16-2022 Note Date & Type Note Facility 07-16-2022 Discharge summary Note Date/Time July 16, 2022 2:01 pm [facility] Medical Records Department [address] [place] [address] Discharge Summary 07/16/22 1359 MR#: [id number] Acct: [id number] Name: SCARLETT LANDRY Rep #:[id number] : 1960 62 From: Khai Ro MD PCP: Care Physician,No Primary Status :ADM IN Location: [facility] [id number] Providers Date of Admission: 07/14/22 Date [...] % (Auto) 60.9, Lymph % (Auto) 23.7, Macon % (Auto) 12.6 H, Eos % (Auto) [...] Self Care Charges/Coding Visit Charges Inpatient E&M: 99130 Disch Hosp >30min 07/16/22 1401 <Electronically signed by Khai Ro MD> Cosigner Signature (if applicable): CC: Dr. Khai Ro MD; No Primary Care Physician~ Signed [facility] Work Phone: 1(672) 900-626704-05-2023 [facility] Medical Records Department [address] [place] [address] Discharge Summary 07/16/22 1359 MR#: [id number] Acct: [id number] Name: SCARLETT LANDRY Rep #: [id number] : 1960 62 From: Khai Ro MD PCP: Care Physician,No Primary Status:ADM IN Location: [place] [address] Providers Date of Admission: 07/14/22 Date of [...] % (Auto) 60.9, Lymph % (Auto) 23.7, Macon % (Auto) 12.6 H, Eos % (Auto) [...] Calcium 9.5, Phosphorus 3.8 (more content not included)...[facility]04-05-[address] Ro [facility] July 16, 2022 10:43am Note Date/Time July 16, 2022 7:40 am [facility] Medical Records Department [address] [place] [address] Progress Note - Hospitalist 07/16/22 0740 MR#: [id number] Acct: [id number] Name: SCARLETT LANDRY Rep #:[id number] : 1960 62 From: Khai Ro MD PCP: Care Physician,No Primary Status :ADM IN Location: [place] [address] Reason for Visit Reason for Visit: Diagnoses [...] % (Auto) 60.9, Lymph % (Auto) 23.7, Macon % (Auto) 12.6 H, Eos % (Auto) [...] documentation, 55Minutes Charges/Coding Visit Charges Inpatient E&M: 50581 Subs Hosp 07/16/22 1043 <Electronically signed by Khai Ro MD> Cosigner Signature (if applicable): CC: ~ Signed [facility] Work Phone: 1(406) 395-185804-05-[address] Miller [facility] July 16, 2022 10:16am Note Date/Time July 16, 2022 10:1 4am [facility] Medical Records Department [address] [place] [address] Consultation - Cardiology 07/16/22 1007 MR#: [id number] Acct: [id number] Name: SCARLETT LANDRY Rep #:[id number] : 1960 62 From: Tim Miller MD PCP: Care Physician,No Primary Status :ADM IN Location: [place] [address] Assessment & Plan Assessment/Plan (1) Congestive heart [...] he quit drinking about a month ago. [facility] Medical History no medical history Home Medications [...] % (Auto) 60.9, Lymph % (Auto) 23.7, Macon % (Auto) 12.6 H, Eos % (Auto) [...] % (Auto) 60.9, Lymph % (Auto) 23.7, Macon % (Auto) 12.6 H, Eos % (Auto) [...] Valderrama MD; No Primary Care Physician~ Signed [facility] Work Phone: 1(321) 341-355504-04-[address] Ro [facility] July 15, 2022 11:53am Note Date/Time July 15, 2022 7:56 am [facility] Medical Records Department [address] [place] [address] Progress Note - Hospitalist 07/15/22 0753 MR#: [id number] Acct: [id number] Name: SCARLETT LANDRY Rep #:[id number] : 1960 62 From: Khai Ro MD PCP: Care Physician,No Primary Status :ADM IN Location: [place] [address] Reason for Visit Reason for Visit: Diagnoses [...] % (Auto) 62.5, Lymph % (Auto) 24.4, Macon % (Auto) 11.4 H, Eos % (Auto) [...] % (Auto) 62.5, Lymph % (Auto) 22.7, Macon % (Auto) 12.1 H, Eos % (Auto) [...] documentation, 55Minutes Charges/Coding Visit Charges Inpatient E&M: 67234 Subs Hosp L3 07/15/22 1153 <Electronically signed by Khai Ro MD> Cosigner Signature (if applicable): CC: ~ Signed [facility] Work Phone: 1(520) 273-497604-03-[address] Moise [facility] July 14, 2022 8:56pm Note Date/Time July 14, 2022 5:38 pm [facility] Medical Records Department [address] [place] [address] Emergency Department Summary 07/14/22 MR#: [id number] Acct: [id number] Name: SCARLETT LANDRY Rep #:[id number] : 1960 62 From: Marques Moise DO PCP: Care Physician,No Primary Status :ADM IN Location: [place] [address] HPI History of Present Illness Chief Complaint: [...] Std Deviation 50.2 H RDW Coeff of Pza 14.0 Plt Count 238 MPV 11.7 Immature Gran % (Auto) 0.200 Neut % (Auto) 62.5 Lymph % (Auto) 24.4 Macon % (Auto) 11.4 H Eos % (Auto) [...] 19:26 EDT Reading Location ID and State: [facility] / [place] , Service support , Discharge Plan Triage Chief Complaint: Shortness of Breath Other Complaint: Edema ED Provider: Marques Moise Dx/Rx/DC Orders Primary Care Provider: Care Physician,No Primary What to do if you have Problems For any increased pain, shortness of breath, bleeding, nausea or vomiting, chestpain, or any unexpected problems, contact your Primary Care Provider. Call [facility] ([phone]) or report to the closest Emergency Room. Call 911 if necessary. 07/14/222055 <Electronically signed by Marques Moise DO> Cosigner Signature (if applicable): CC: No Primary Care Physician ~ Signed [facility] Work Phone: 1(328) 820-570404-03-2023 History and physical note Author Dr. Valderrama [facility] July 14, 2022 8:25pm Note Date/Time July 14, 2022 7:42 pm 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 [facility] Medical History no medical history no medical [...] % (Auto) 62.5, Lymph % (Auto) 24.4, Macon % (Auto) 11.4 H, Eos % (Auto) [...] 19:26 EDT Reading Location ID and State: [facility] / [place] , Service support , Assessment & Plan [...] modification recommended. Charges/Coding Visit Charges Inpatient E&M: 11829 Init Hosp L3 07/14/222024 <Electronically signed by Aren Valderrama MD> Cosigner Signature (if applicable): CC: Dr. Aren Valderrama MD; No Primary Care Physician~ Signed [facility] Work Phone: 1(879) 588-993804-03-[address] Moise [facility] July 14, 2022 8:56pm Note Date/Time July 14, 2022 5:38 pm [facility] Medical Records Department [address] [place] [address] Emergency Department Summary 07/14/22 MR#: [id number] Acct: [id number] Name: SCARLETT LANDRY Rep #:[id number] : 1960 62 From: Marques Moise DO PCP: Care Physician,No Primary Status :ADM IN Location: [address] History of Present Illness Chief Complaint: [...] % (Auto) 62.5 Lymph % (Auto) 24.4 Macon % (Auto) 11.4 H Eos % (Auto) [...] 19:26 EDT Reading Location ID and State: [facility] / [place] , Service support , Discharge Plan Triage Chief Complaint: Shortness of Breath Other Complaint: Edema ED Provider: Marques Moise Dx/Rx/DC Orders Primary Care Provider: Care Physician,No Primary What to do if you have Problems For any increased pain, shortness of breath, bleeding, nausea or vomiting, chestpain, or any unexpected problems, contact your Primary Care Provider. Call [employer] [facility] ([phone]) or report to the closest Emergency Room. Call 911 if necessary. 07/14/222055 <Electronically signed by Marques Moise DO> Cosigner Signature (if applicable): CC: No Primary Care Physician ~ Signed [facility] Work Phone: [phone]) 848-915204-03-2023 NoteHNO ID: [id number] Author: Michelle Figueroa PA-C Service: ? Author Type: Physician Storm Sash Maker Type: Progress Notes Filed: 07/14/2022 3:05 [...] emergency department. His will take him to [facility]. Vital signs stable here. BP 138/98 Pulse 92 Temp 36.7 ?C (98 ?F) Resp 18 Wt 134.7 kg (297 lb) SpO2 97%[facility]04-03-[facility] History of Present illness Narrative* Michelle [...] emergency department. His will take him to [facility]. Vital signs stable here. BP 138/98 Pulse 92 Temp 36.7 C (98 F) Resp 18 Wt 134.7 kg (297 lb) SpO2 97% [facility] Diagnosis Onset Date Resolution Status Congestive heart failure (CHF) acute Elevated blood pressure reading acute Morbid obesity due to excess calories acute [facility] Work Phone: Evaluation note* Diagnosis Peripheral edema- Primary Edema SOB (shortness of breath) Shortness of breath [facility] Diagnosis Onset Date Resolution Status Congestive heart failure (CHF) acute Elevated blood pressure reading acute History of ETOH abuse acute Morbid obesity due to excess calories acute Hypertension [facility] Work Phone: Evaluation note* Diagnosis Onset Date Resolution Status Congestive heart failure (CHF) acute Morbid obesity due to excess calories chronic Congestive heart failure (CHF) acute Essential hypertension chron ic [facility] Work Phone: History and physical note Author Dr. Valderrama [facility] July 14, 2022 8:25pm Note Date/Time July 14, 2022 7:42 pm 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 [facility] Medical History no medical history no medical [...] % (Auto) 62.5, Lymph % (Auto) 24.4, Macon % (Auto) 11.4 H, Eos % (Auto) [...] modification recommended. Charges/Coding Visit Charges Inpatient E&M: 71844 Init Hosp L3 07/14/222024 <Electronically signed by Aren Valderrama MD> Cosigner Signature (if applicable): CC: Dr. Aren Valderrama MD; No Primary Care Physician~ Signed [facility] Work Phone: Chief Complaint and Reason for [...] FAILURE ACUTE HEART FAILURE ACUTE HEART FAILURE [facility] S/P CHF CHF, HTN; CAD CHF, HTN; CAD Reason for Visit Congestive heart gifty lure (CHF) Morbid obesity due to excess calories Congestive heart failure (CHF) Essential hypertension Chief Complaint ACUTE HEART FAILURE ACUTE HEART FAILURE ACUTE HEART FAILURE ACUTE HEART FAILURE [facility] S/P CHF CHF, HTN; CAD CHF, [...] No July 14, 2022 5:06pm Power of Drawer In [employer] No July 14 5:06pm Advance Directive Response Recorded Date/ Time Living Will No July 14, 2022 9:39pm Power of Drawer In [employer] No July 14 9:39pm Summary Purpose Additional [...] Provider, Refer ring Provider Active Benito Haywood CRITICAL CARE PHYSICIAN, CRITICAL CARE PHYSICIAN-C Attending Provider Active Team Status: Active Member Role Status Dates No Primary Care Physician Primary Care Provider Active Benito Haywood CRITICAL CARE PHYSICIAN, CRITICAL CARE PHYSICIAN-C Referring Provider, Other Provide r Active Dr. Tim Miller MD Attending Provider Active Team Status: Inactive Member Role Status Dates No Primary Care Physician Primary Care Provider Active Benito Haywood CRITICAL CARE PHYSICIAN, CRITICAL CARE PHYSICIAN-C Attending Provider, Referring Pro vider Active Team Status: Active Member Role Status Dates No Primary Care Physician Primary Care Provider Active Dr. Tim Miller MD Attending Provider Active Benito Haywood CRITICAL CARE PHYSICIAN, CRITICAL CARE PHYSICIAN-C Referring Provider Active Team Status: Active Member Role Status Dates No Primary Care Physician Primary Care Provider Active Dr. Tim Miller MD Attending Provider Active Team Status: Active Member Role Status Dates No Primary Care Physician Primary Care Provider Active Benito Haywood CRITICAL CARE PHYSICIAN, CRITICAL CARE PHYSICIAN-C Attending Provider Active Goals (unrecognized section and content) Goals may be documented in a n alternate section Source Comments (unrecognize d section and content) In the event this informatio n is protected by the Federal Confidentiality of Alcohol and Drug Abuse Patient Records regulations: The Federal rules restrict any use of the information to criminally investigate or prosecute any alcohol or drug abuse patient.[facility] Reason for Visit (unrecogniz ed section and content) Reason Comments Shortness of Breath With swollen legs an d feet x 2 weeks (unrecognized sect ion and content) No Status Records FoundNo Status Records Found INFORMATION SOURCE (unrecogn ized section and content) DATE CREATED AUTHOR 07/17/2022 [facility] DATE CREATED AUTHOR AUTHOR'S PAULINE ISIDROION 10/31/2022 [facility] FOR RECORDS PERTAINING TO PATIENTS WHO [...] BE BASED ON THE PRIMARY CLINICAL RECORDS. [facility]. provides no warranty or guarantee of the accuracy or completeness of information in this document.
[2024-12-24] MEDS: Heparin Injection (Vial) 5,000 UNIT/ML VIAL 4000 UNIT IV (20:05)
[2024-12-24] MEDS: Furosemide 20 MG/2 ML VIAL IV (20:11)
[2024-12-24] MEDS: HEPARIN/D5w 25,000 UNITS 25,000 UNITS/250 ML IV.SOLN. 13.8 UNITS CONT INF (20:16)
[2024-12-24 20:30] LABS: Troponin T High Sens 2 HR 59 ng/L (<=22)
[2024-12-24 20:31] LABS: Magnesium 2.3 mg/dL (1.5-2.2)
[2024-12-24 20:45] LABS: Alcohol, Blood (Medical)-Serum < 10.1 mg/dL (<=10.0)
[2024-12-24] MEDS: 0.9% Saline Lock 10 ML Syringe IV (21:37)
[2024-12-24] MEDS: Diltiazem 125 MG in Dextrose 5%-Water (100mL Bag) 100 ML IV (21:37)
--- NOTE | 2024-12-24 22:15 | EKG12_ITS ---
Test Reason : NSTEMI Blood Pressure : */* mmHG Vent. Rate : 93 BPM Atrial Rate : 242 BPM P-R Int : * ms QRS Dur : 158 ms QT Int : 398 ms P-R-T Axes : 88 33 216 degrees QTcB Int : 494 ms Atrial flutter with variable A-V block Left bundle branch block Abnormal ECG When compared with ECG of 24-Dec-2024 16:49, MANUAL COMPARISON REQUIRED DATA IS UNCONFIRMED Confirmed by Joseph Johnson ([id number]), ecosystem ecology professor JUAN TOSCANO ([id number]) on 12/26/2024 1:28:39 PM Referred By: Confirmed By: Joseph Johnson
[2024-12-24 22:47] LABS: Prothrombin Time (Protime)PT. 15.8 SECONDS (11.7-14.9)
[2024-12-24 22:59] LABS: Troponin T High Sens 4 HR 70 ng/L (<=22)
[2024-12-25] VITALS (20 sets, daily range): BP systolic 98–117; BP diastolic 76–102; PULSE 62–85; RESP 14–24; TEMP 36.1–36.6; O2SAT 96–100; BMI 38.4
[2024-12-25] MEDS: MELATONIN 3 MG TABLET PO ×2 (00:48→21:53)
[2024-12-25 02:53] LABS: Hematocrit 46.4 % (40-54); Hemoglobin 14.7 g/dL (13.0-16.5); Immature Granulocytes Count 0.030 X10^3/uL (0.0-0.0); Mean Corp Hgb Conc 31.7 g/dL (32-36); Mean Corpuscular Volume 95.9 fL (80-94); Mean Platelet Vol. 10.8 fl (6.2-12.0); NRBC Flagged by Analyzer 0 % (0-5); Platelet Count 241 K/mm3 (150-450); RBC Distribution Width CV 14.4 % (11.6-14.6); RBC Distribution Width SD 49.9 fl (35.1-43.9); Red Blood Count 4.84 M/mm3 (4.6-6.2); White Blood Count 10.8 K/mm3 (4.4-11.0)
[2024-12-25 03:06] LABS: Partial Thromboplast Time 40.5 Seconds (24.1-36.2)
[2024-12-25 03:18] LABS: Anion Gap 13 (5-15); BUN 27 mg/dL (4-19); BUN/Creat Ratio 19.5 RATIO (10-20); Calcium,Total 9.6 mg/dL (7.6-11.0); Carbon Dioxide 23.4 mmol/L (21.0-32.0); Chloride 104 mmol/L (98-108); Estimated Creatinine Clearance 71.01 ml/min (50-250); Glucose 114 mg/dL (70-99); Potassium 4.1 mmol/L (3.3-5.1)
[2024-12-25] MEDS: Heparin Nomogram Adjustment 5,000 UNIT/ML VIAL IV ×2 (03:22→16:24)
--- NOTE | 2024-12-25 07:52 | PN.HOSP_ITS ---
Reason for Visit Chief Complaint: Exertional dyspnea and lower extremity swelling Objective Data Objective Data Vital Signs: Vital Signs Temp Pulse Resp BP Pulse Ox O2 Del Method 97.8 F 65 18 112/102 H 98 Room Air 12/25/24 04:00 12/25/24 07:14 12/25/24 07:14 12/25/24 07:14 12/25/24 07:14 12/25/24 05:00 Oxygen Delivery Method Room Air Weight: 267 lb 10.259 oz Body Mass Index (BMI) 38.4 Intake & Output: Intake and Output for Last 24 Hours 12/23/24 12/24/24 12/25/24 23:59 23:59 23:59 Intake Total 15.67 / 18.17 166.88 / 166.88 Output Total 1175 / 1175 200 / 200 Balance -1159.33 / -1156.83 -33.12 / -33.12 Lab / Micro Data 12/25/24 02:45 12/25/24 02:45 Labs: Laboratory Results - last 24 hr 12/24/24 17:06: WBC 9.9, RBC 4.81, Hgb 15.1, Hct 45.8, MCV 95.2 H, MCH 31.4, MCHC 33.0, RDW Std Deviation 49.7 H, RDW Coeff of Paz 14.2, Plt Count 253, MPV 11.3, Immature Gran % (Auto) 0.300, Neut % (Auto) 60.1, Lymph % (Auto) 27.8, M melissa % (Auto) 10.6 H, Eos % (Auto) 0.8, Baso % (Auto) 0.4, Absolute Neuts (auto) 6.0, Absolute Lymphs (auto) 2.76, Nucleated RBC % 0, PT 15.8 H, INR 1.2, Sodium 141, Potassium 4.6, Chloride 106, Carbon Dioxide 23.4, Anion Gap 12, BUN 27 H, C reatinine 1.37 H, Estim Creat Clear Calc 72.52, Est GFR (MDRD) Non-Af 58 L, BUN/Creatinine Ratio 19.4, Glucose 109 H, Calcium 10.1, Phosphorus 3.6, M agnesium 2.3 H, Troponin T High Sens 60 H*, Troponin T Hi Sens 4Hr Cancelled, NT pro BNP II 7117 H 12/24/24 19:47: Troponin T Hi Sens 2 Hr 59 H*, Ethyl Alcohol < 10.1 12/24/24 22:00: Troponin T Hi Sens 4Hr 70 H* 12/25/24 02:45: WBC 10.8, RBC 4.84, Hgb 14.7, Hct 46.4, MCV 95.9 H, MCH 30.4, M CHC 31.7 L, RDW Std Deviation 49.9 H, RDW Coeff of Paz 14.4, Plt Count 241, MPV 10.8, Immature Gran % (Auto) 0.300, Neut % (Auto) 58.0, Lymph % (Auto) 28.3, M melissa % (Auto) 11.9 H, Eos % (Auto) 0.9, Baso % (Auto) 0.6, Absolute Neuts (auto) 6.3, Absolute Lymphs (auto) 3.05, Nucleated RBC % 0, APTT 40.5 H, Sodium 141, Potassium 4.1, Chloride 104, Carbon Dioxide 23.4, Anion Gap 13, BUN 27 H, C reatinine 1.40 H, Estim Creat Clear Calc 71.01, Est GFR (MDRD) Non-Af 56 L, BUN/Creatinine Ratio 19.5, Glucose 114 H, Calcium 9.6 Radiography Diagnostic Testing: Radiology Impression Chest X-Ray 12/24/24 17:55 IMPRESSION: Stable cardiomegaly with mild pulmonary vascular congestion. Reading Location: [facility] Physical Exam Narrative Seen and examined Patient has intermittent lower sternal/xiphisternal localized pain with gait exacerbated on walking and laying down. Feels like reflux/heartburn. Denies having EGD. Shortness of breath and leg swelling lately worsening for 1-1/2 weeks. History of chronic heart failure Physical exam General: Alert, Oriented x3, Cooperative. BMI 34.8 kg/m?. Mild obesity HEENT: Atraumatic, PERRLA, EOMI, Normocephalic. Oral: No Gingival or Mucosal Lesions/ Ulcerations Neck: Supple, No JVD, Negative Carotid Bruits Chest wall/Lungs: Air entry diminished in bilateral lungs. No crepitation/rhonchi Cardiovascular: Atrial flutter on monitor with variable rate, Normal S1,S2, systolic murmur Abdomen: Bowel Sounds Present, Soft, Non Tender, Non-Distended : No dysuria. No renal angle tenderness. No suprapubic tenderness. Extremities: 2+ below-knee pedal edema, Capillary Refill Less than 3 Seconds Skin: No rashes, No breakdown Musculoskeletal: No Tenderness to Palpation of Joints or Extremities Neurological: Cranial nerves II-XII grossly intact, DTR 2+/4. No acute focal neurological deficit. Psych/Mental Status: Normal Affect, Appropriate. Assessment & Plan Assessment/Plan (1) Acute exacerbation of CHF (congestive heart failure): (2) Atrial flutter with rapid ventricular response: PLAN: Plan Patient is a 64-year-old male who presented [facility] ED on 12/24/2024 with exertional dyspnea and lower extremity swelling. 1. 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 Pulse ox 100% on room air. IV heparin drip ? Admit under inpatient status to PCU. Cardiology consulted. History of severe HFrEF with dilated cardiomyopathy in July 2022 with EF 15 to 20%. Stress test then was negative. Had good recovery with medical therapy with last echo in October 2022 with EF 50%. Mildly dilated LV, concentric LVH. Normal right ventricle. LA severely enlarged. Right atrium severely enlarged. Mild dilated cardiomyopathy last follow-up with Dr. Miller 2 years Plan: IV Cardizem drip. Hold home Coreg and lisinopril. Customer Experience Professional consulted. 2. CHF exacerbation secondary to tachycardia induced cardiomyopathy in setting of new onset A-fib/flutter, possibly due to untreated DELVIN as below. Troponin 60 > 59, 70 EKG showed slow atrial flutter with rate in the 120s with 2:1 conduction. vehicle monitor technician shows a flutter with variable rate. BNP 7117. Per cardiology, patient initiated on heparin drip and will keep n.p.o. overnight for possible left heart cath tomorrow. Echo ordered. 12/25: Continue IV Lasix 40 mg twice daily, monitor daily BMP and urine output. 2. CKD stage IIIa ? Creatinine 1.37 on admit, baseline 1.2-1.3. Monitor daily BMP and urine output while on IV Lasix as above. 12/25, BUN/creatinine 27/1.4. 3. Class II obesity with suspected DELVIN ? BMI 38 on admit. Complicates hospital course and care. Patient with risk factors and history that seem consistent with DELVIN. Cardiology recommended sleep study for further evaluation in 2022 but patient never had this done. Strongly recommend outpatient sleep study for further evaluation shortly after discharge. 4. History of alcohol abuse ? History of heavy alcohol use prior to hospitalization in 2022 as above. Patient reports very minimal alcohol use since then. Alcohol level 0 on admit. DVT prophylaxis: Not indicated, on heparin drip CODE STATUS: Full code, verified Expected disposition: Home, TBD Charges/Coding Visit Charges Inpatient E&M: 97015 Subs Hosp L3
[2024-12-25 09:42] LABS: Partial Thromboplast Time 41.9 Seconds (24.1-36.2)
[2024-12-25] MEDS: 0.9% Saline Lock 10 ML Syringe IV ×2 (09:57→18:33)
--- NOTE | 2024-12-25 11:06 | CON.PCM.CA_ITS ---
Assessment & Plan Assessment/Plan (1) NSTEMI (non-ST elevated myocardial infarction): PLAN: It is likely in the setting of acute decompensated heart failure. Patient needs ischemic evaluation for his cardiomyopathy and his chest pain. Continue with aspirin and IV heparin drip for now. Start atorvastatin 40 mg daily. Keep him n.p.o. after midnight for possible left heart catheterization tomorrow morning if creatinine remains stable. (2) Atrial flutter with rapid ventricular response: PLAN: Discontinue Cardizem in the setting of HFrEF Start metoprolol to tartrate 25 twice daily and uptitrate uptitrate as needed. He will he will need anticoagulation on discharge. Continue with IV heparin with now (3) Acute exacerbation of CHF (congestive heart failure): PLAN: Etiology of cardiomyopathy could be combination of alcohol and tachycardia induced cardiomyopathy. Ischemia has to be ruled out. Continue with IV Lasix 40 mg twice daily Discontinue Cardizem Start metoprolol tartrate He had issues with Jardiance and Entresto from before due to financial issues. Restart lisinopril 5 mg daily. 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 He has been having orthopnea, PND. He has NYHA class III heart failure symptoms. He has shortness of breath with minimal exertion. He has been having chest pain for the last 2 weeks. His chest pain has been becoming progressively worsening with minimal activity for which he presented to the hospital. He describes his chest pain as pressure substernal worse with exertion and better with rest. He had a stress test in 2022 showed small area of reversibility in the apex. Cardiology service was consulted for further evaluation. In the ED his troponin found to be elevated at 70. Alcohol level is less than 10.1. He was found to be in atrial flutter. [facility] Medical History Essential hypertension History of ETOH abuse Elevated blood pressure reading Home Medications ?Medication ?Instructions ?Recorded ?Last Taken ?Type potassium chloride 20 mEq See Rx Instructions .Route 0 05/11/23 12/24/24 Rx tablet,extended .COMPLEX #90 tabs release(part/cryst) (Klor-Con M) lisinopril 10 mg tablet 10 mg PO BID #180 tabs 08/2312/24/24 Rx carvedilol 6.25 mg tablet 6.25 mg PO BID #180 TABLETS 08/23/24 12/24/24 Rx furosemide 40 mg tablet (Lasix) 40 mg PO DAILY #90 tab s 08/29/24 12/24/24 Rx Allergy/AdvReac Type Severity Reaction Status Date / Time No Known Allergies Allergy Verified 12/24/24 16:42 Family History Other COPD (chronic obstructive pulmonary disease) Heart disease Social History household members: spouse Smoking Status: Former smoker how long ago did patient quit smokin years ago alcohol intake: never substance use type: marijuana caffeine: No (None in the last couple of weeks) Physical Exam Const alert and oriented x3 HEENT normocephalic Eyes PERRL Neck full ROM Lymph Lymphatic: no lymphadenopathy noted Chest inspection of chest normal Resp normal respiratory effort Auscultation: crackles Cardio Jugular Venous Distention: JVD Rate: Negative for regular rate Heart Sounds: Negative for murmur GI normal to inspection, nondistended, normoactive bowel sounds no CVA tenderness Back/Spine no CVA tenderness Extremity General Extremity: edema Skin no rashes or lesions noted Psych mental status grossly normal Objective Data Vital Signs: Vital Signs Temp Pulse Resp BP Pulse Ox O2 Del Method 97.8 F 69 15 111/88 H 100 Room Air 12/25/24 04:00 12/25/24 09:00 12/25/24 09:00 12/25/24 09:00 12/25/24 09:00 12/25/24 10:00 Oxygen Delivery Method Room Air Weight: 267 lb 10.259 oz Body Mass Index (BMI) 38.4 Intake & Output: Intake and Output for Last 24 Hours 12/23/24 12/24/24 12/25/24 23:59 23:59 23:59 Intake Total 15.67 / 18.17 279.20 / 279.20 Output Total 1175 / 1175 200 / 200 Balance -1159.33 / -1156.83 79.20 / 79.20 Lab / Micro Data 12/25/24 02:45 12/25/24 02:45 Labs: Laboratory Results - last 24 hr 12/24/24 17:06: WBC 9.9, RBC 4.81, Hgb 15.1, Hct 45.8, MCV 95.2 H, MCH 31.4, MCHC 33.0, RDW Std Deviation 49.7 H, RDW Coeff of Paz 14.2, Plt Count 253, MPV 11.3, Immature Gran % (Auto) 0.300, Neut % (Auto) 60.1, Lymph % (Auto) 27.8, M melissa % (Auto) 10.6 H, Eos % (Auto) 0.8, Baso % (Auto) 0.4, Absolute Neuts (auto) 6.0, Absolute Lymphs (auto) 2.76, Nucleated RBC % 0, PT 15.8 H, INR 1.2, Sodium 141, Potassium 4.6, Chloride 106, Carbon Dioxide 23.4, Anion Gap 12, BUN 27 H, C reatinine 1.37 H, Estim Creat Clear Calc 72.52, Est GFR (MDRD) Non-Af 58 L, BUN/Creatinine Ratio 19.4, Glucose 109 H, Calcium 10.1, Phosphorus 3.6, M agnesium 2.3 H, Troponin T High Sens 60 H*, Troponin T Hi Sens 4Hr Cancelled, NT pro BNP II 7117 H 12/24/24 19:47: Troponin T Hi Sens 2 Hr 59 H*, Ethyl Alcohol < 10.1 12/24/24 22:00: Troponin T Hi Sens 4Hr 70 H* 12/25/24 02:45: WBC 10.8, RBC 4.84, Hgb 14.7, Hct 46.4, MCV 95.9 H, MCH 30.4, M CHC 31.7 L, RDW Std Deviation 49.9 H, RDW Coeff of Paz 14.4, Plt Count 241, MPV 10.8, Immature Gran % (Auto) 0.300, Neut % (Auto) 58.0, Lymph % (Auto) 28.3, M melissa % (Auto) 11.9 H, Eos % (Auto) 0.9, Baso % (Auto) 0.6, Absolute Neuts (auto) 6.3, Absolute Lymphs (auto) 3.05, Nucleated RBC % 0, APTT 40.5 H, Sodium 141, Potassium 4.1, Chloride 104, Carbon Dioxide 23.4, Anion Gap 13, BUN 27 H, C reatinine 1.40 H, Estim Creat Clear Calc 71.01, Est GFR (MDRD) Non-Af 56 L, BUN/Creatinine Ratio 19.5, Glucose 114 H, Calcium 9.6 12/25/24 09:07: APTT 41.9 H Cardiology Labs/Tests 12/24/24 17:06: WBC 9.9, RBC 4.81, Hgb 15.1, Hct 45.8, MCV 95.2 H, MCH 31.4, MCHC 33.0, Plt Count 253, MPV 11.3, Immature Gran % (Auto) 0.300, Neut % (Auto) 60.1, Lymph % (Auto) 27.8, [place] % (Auto) 10.6 H, Eos % (Auto) 0.8, Baso % (Auto) 0.4, Absolute Neuts (auto) 6.0, Nucleated RBC % 0, PT 15.8 H, INR 1.2, Sodium 141, Potassium 4.6, Chloride 106, Carbon Dioxide 23.4, Anion Gap 12, BUN 27 H, C reatinine 1.37 H, Est GFR (MDRD) Non-Af 58 L, BUN/Creatinine Ratio 19.4, Glucose 109 H, Calcium 10.1, Phosphorus 3.6, Magnesium 2.3 H 12/25/24 02:45: WBC 10.8, RBC 4.84, Hgb 14.7, Hct 46.4, MCV 95.9 H, MCH 30.4, M CHC 31.7 L, Plt Count 241, MPV 10.8, Immature Gran % (Auto) 0.300, Neut % (Auto) 58.0, Lymph % (Auto) 28.3, [place] % (Auto) 11.9 H, Eos % (Auto) 0.9, Baso % (Auto) 0.6, Absolute Neuts (auto) 6.3, Nucleated RBC % 0, APTT 40.5 H, Sodium 141, Potassium 4.1, Chloride 104, Carbon Dioxide 23.4, Anion Gap 13, BUN 27 H, C reatinine 1.40 H, Est GFR (MDRD) Non-Af 56 L, BUN/Creatinine Ratio 19.5, Glucose 114 H, Calcium 9.6 12/25/24 09:07: APTT 41.9 H Rhythm: Atrial flutter EKG: Atrial flutter ECHO: EF 10-15% Stress Test: Small area of reversibility in the apex Radiography Diagnostic Testing: Radiology Impression Chest X-Ray 12/24/24 17:55 IMPRESSION: Stable cardiomegaly with mild pulmonary vascular congestion. Reading Location: [facility] JOHN Risk Score for UA/STEMI Assesmment (YES = 1) Risk Stratification Applicable: Yes Age > or = 65: No > or = 3 CAD risk factors (HTN, Hypercholesterolemia, Diabetes, family hx, current smoker): Yes Known CAD (Stenosis > or = 50%): No ASA used in past 7 days: No Severe angina (> or = 2 episodes in 24 hrs): Yes EKG ST change > or = 0.5mm: No Positive cardiac markers: Yes Score JOHN Risk Score of mortality/ recurrent ischemic event over the next 14 days: 3 = 13.2% Intermediate Risk
[2024-12-25] MEDS: HEPARIN/D5w 25,000 UNITS 25,000 UNITS/250 ML IV.SOLN. 16.8 UNITS CONT INF (13:49)
[2024-12-25 14:55] LABS: Partial Thromboplast Time 39.4 Seconds (24.1-36.2)
[2024-12-25 22:16] LABS: Partial Thromboplast Time 50.3 Seconds (24.1-36.2)
[2024-12-26] MEDS: HEPARIN/D5w 25,000 UNITS 25,000 UNITS/250 ML IV.SOLN. 19.8 UNITS CONT INF (01:21)
[2024-12-26 04:56] LABS: Hematocrit 46.1 % (40-54); Hemoglobin 15.0 g/dL (13.0-16.5); Immature Granulocytes Count 0.030 X10^3/uL (0.0-0.0); Mean Corp Hgb Conc 32.5 g/dL (32-36); Mean Corpuscular Volume 94.5 fL (80-94); Mean Platelet Vol. 10.7 fl (6.2-12.0); NRBC Flagged by Analyzer 0 % (0-5); Platelet Count 206 K/mm3 (150-450); RBC Distribution Width CV 14.3 % (11.6-14.6); RBC Distribution Width SD 49.0 fl (35.1-43.9); Red Blood Count 4.88 M/mm3 (4.6-6.2); White Blood Count 9.3 K/mm3 (4.4-11.0)
[2024-12-26 05:00] VITALS: BP 104/87; PULSE 82; RESP 18; TEMP 36.1; O2SAT 96
[2024-12-26 05:08] LABS: Partial Thromboplast Time 56.2 Seconds (24.1-36.2)
[2024-12-26 05:18] VITALS: BMI 38.1
[2024-12-26 05:27] LABS: Anion Gap 13 (5-15); BUN 29 mg/dL (4-19); BUN/Creat Ratio 21.2 RATIO (10-20); Calcium,Total 9.6 mg/dL (7.6-11.0); Carbon Dioxide 22.2 mmol/L (21.0-32.0); Chloride 103 mmol/L (98-108); Cholesterol 97 mg/dL (<=200); Estimated Creatinine Clearance 73.01 ml/min (50-250); Glucose 110 mg/dL (70-99); Low Density Lipoprotein Calc. 52 mg/dL; Potassium 3.9 mmol/L (3.3-5.1); Triglycerides 68 mg/dL; Very Low Density Lipoprotein 14 mg/dL (5-40); cholesterol:hdl ratio screen 3.13
--- NOTE | 2024-12-26 05:30 | EKG12_ITS ---
Test Reason : AM EKG Blood Pressure : */* mmHG Vent. Rate : 106 BPM Atrial Rate : * BPM P-R Int : * ms QRS Dur : 152 ms QT Int : 342 ms P-R-T Axes : * 31 177 degrees QTcB Int : 454 ms Atrial fibrillation with rapid ventricular response Left bundle branch block Abnormal ECG When compared with ECG of 24-Dec-2024 22:29, MANUAL COMPARISON REQUIRED DATA IS UNCONFIRMED Confirmed by Joseph Johnson ([id number]), science editor JUAN TOSCANO ([id number]) on 12/26/2024 1:27:43 PM Referred By: Confirmed By: Joseph Johnson
--- NOTE | 2024-12-26 09:10 | PCM.PN.CARD ---
Subjective Subjective The patient is resting comfortably in bed. Denies any chest discomfort reports that his chest discomfort and shortness of breath occur simultaneously when he was trying to actively be active. This started after he was diagnosed with influenza approximately 6 weeks ago. He also has progressively had increasing lower extremity edema. 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 The patient did come in with atrial flutter 2-1 with 140-150 bpm heart rate. An echocardiogram this morning estimates his EF in the 10% range. Patient has a history of apical ischemia on a stress test done after his original presentation in 2022. This was a small area of apical ischemia. Telemetry now shows atrial fibrillation with a heart rate of 88 to 106 bpm. Objective Data Vital Signs: Vital Signs Temp Pulse Resp BP Pulse Ox O2 Del Method 97 F L 82 18 104/87 H 96 Room Air 12/26/24 05:00 12/26/24 05:00 12/26/24 05:00 12/26/24 05:00 12/26/24 05:00 12/26/24 07:39 Oxygen Delivery Method Room Air Weight: 266 lb 8.622 oz Body Mass Index (BMI) 38.1 Intake & Output: Intake and Output for Last 24 Hours 12/24/24 12/25/24 12/26/24 23:59 23:59 23:59 Intake Total 15.67 / 18.17 947.99 / 947.99 183.15 / 183.15 Output Total 1175 / 1175 1550 / 2050 1100 / 1100 Balance -1159.33 / -1156.83 -602.01 / -1102.01 -916.85 / -916.85 Lab / Micro Data 12/26/24 04:47 12/26/24 04:47 Labs: Laboratory Results - last 24 hr 12/25/24 09:07: APTT 41.9 H 12/25/24 14:44: APTT 39.4 H 12/25/24 22:01: APTT 50.3 H 12/26/24 04:47: WBC 9.3, RBC 4.88, Hgb 15.0, Hct 46.1, MCV 94.5 H, MCH 30.7, MCHC 32.5, RDW Std Deviation 49.0 H, RDW Coeff of Paz 14.3, Plt Count 206, MPV 10.7, Immature Gran % (Auto) 0.300, Neut % (Auto) 55.8, Lymph % (Auto) 31.8, [place] % (Auto) 10.5 H, Eos % (Auto) 1.3, Baso % (Auto) 0.3, Absolute Neuts (auto) 5.2, Absolute Lymphs (auto) 2.96, Nucleated RBC % 0, APTT 56.2 H, Sodium 138, Potassium 3.9, Chloride 103, Carbon Dioxide 22.2, Anion Gap 13, BUN 29 H, Creatinine 1.35 H, Estim Creat Clear Calc 73.01, Est GFR (MDRD) Non-Af 59 L, BUN/Creatinine Ratio 21.2 H, Glucose 110 H, Calcium 9.6, Triglycerides 68, Cholesterol 97, LDL Cholesterol, Calc 52, VLDL Cholesterol 14, HDL Cholesterol 31 L, Cholesterol/HDL Ratio 3.13, TSH 2.650, Free T4 1.30 Rhythm Strip Rhythm Strip: A-fib Rate: 88 Cardiology Labs/Tests 12/25/24 09:07: APTT 41.9 H 12/25/24 14:44: APTT 39.4 H 12/25/24 22:01: APTT 50.3 H 12/26/24 04:47: WBC 9.3, RBC 4.88, Hgb 15.0, Hct 46.1, MCV 94.5 H, MCH 30.7, MCHC 32.5, Plt Count 206, MPV 10.7, Immature Gran % (Auto) 0.300, Neut % (Auto) 55.8, Lymph % (Auto) 31.8, [place] % (Auto) 10.5 H, Eos % (Auto) 1.3, Baso % (Auto) 0.3, Absolute Neuts (auto) 5.2, Nucleated RBC % 0, APTT 56.2 H, Sodium 138, Potassium 3.9, Chloride 103, Carbon Dioxide 22.2, Anion Gap 13, BUN 29 H, Creatinine 1.35 H, Est GFR (MDRD) Non-Af 59 L, BUN/Creatinine Ratio 21.2 H, Glucose 110 H, Calcium 9.6, Triglycerides 68, Cholesterol 97, VLDL Cholesterol 14, HDL Cholesterol 31 L, Cholesterol/HDL Ratio 3.13 Rhythm: EKG: ECHO: Stress Test: Cardiac Cath: PCI: CT Surgery: Holter monitor: EPS: PPM: CXR: Chest CT Scan: Physical Exam Const alert and oriented x3 HEENT normocephalic Eyes EOMs intact bilaterally Neck no JVD Neck Narrative: No JVD at 90 degrees sitting in the bed. Chest inspection of chest normal Resp normal respiratory effort Auscultation: crackles bilateral base Cardio Cardio Narrative: Distant heart tones due to increased AP diameter. Rate: regular rate Rhythm: abnormal rhythm irregularly irregular Heart Sounds: S1 normal and S2 normal; Negative for click, gallop or murmur GI GI Narrative: Obese. Extremity General Extremity: edema bilateral lower extremity Details: moderate Neuro Neuro Narrative: Alert and oriented x 3 Psych mental status grossly normal Assessment & Plan Assessment/Plan (1) Congestive heart failure (CHF): QUALIFIERS: Heart failure type: systolic Heart failure chronicity: acute Qualified Code(s): I50.21 - Acute systolic (congestive) heart failure PLAN: Patient carries a history of heart failure with reduced ejection fraction. His echocardiogram today is consistent with an ejection fraction globally depressed at around 10%. His ECG is consistent with atrial fibrillation at a heart rate of 106 bpm and a left bundle branch block. Upon original presentation the emergency department he was in atrial flutter with 2-1 conduction 140-150 bpm range. His symptoms of the progressive dyspnea on exertion and lower extremity edema started about 6 weeks ago when he was diagnosed with influenza. He was not aware he was in atrial flutter when he presented to the emergency department it is highly likely he has been tachycardic for 6 weeks. This very well could be the etiology of the drop in his ejection fraction. He does have a slight bump in his enzymes 60, 59, 74 his troponins. ECG does not show any acute ischemic changes but he does have a left bundle branch block. He does have a remote history in 2022 of apical small area of ischemia on a pharmacologic nuclear stress test. Would recommend titrate guideline directed medical therapy as blood pressure heart rate and renal function allow. The patient could not tolerate Jardiance or Entresto in the ambulatory setting due to financial constraints. 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 (2) A-fib: QUALIFIERS: Atrial fibrillation type: paroxysmal Qualified Code(s): I48.0 - Paroxysmal atrial fibrillation PLAN: The atrial fibs presumed to started around 6 weeks ago. He was in atrial flutter on original presentation in the right has been better controlled with metoprolol 25 mg twice daily. Will plan on increasing this to 50 mg twice daily today. (3) NSTEMI (non-ST elevated myocardial infarction): PLAN: Patient's enzymes were 60, 59, and 70 for his high-sensitivity troponin. I did not feel this represents a type I non-STEMI. Would recommend that we treat this as demand ischemia I would recommend that we stop his heparin and repeat his pharmacologic nuclear stress test. Will continue to treat the patient aggressively medically to compensate for his heart failure. PLAN: Plan 1. Recommend decrease Lasix to 40 mg IV daily. 2. Will increase metoprolol to 50 mg twice daily. 3. Will add low-dose losartan 25 mg daily. 4. Will plan pharmacologic nuclear stress test later today. 5. Will continue to titrate guideline directed medical therapy to maximum tolerated doses once achieved we will recheck echocardiogram 6 to 12 weeks later.
[2024-12-26] MEDS: 0.9% Saline Lock 10 ML Syringe IV ×3 (09:59→18:58)
--- NOTE | 2024-12-26 12:03 | STRESSREP ---
Stress Test Report Date: 12/26/2024 Procedure: Pharmacologic stress nuclear imaging study Indications: Chest pain Consent: Per the patient Procedure: The patient underwent pharmacologic (Regadenoson 0.4mg ) evaluation with a peak heart rate of 118 beats per minute (75%predicted maximal heart rate) and a peak blood pressure of 120/90 mmHg. The baseline ECG demonstrated atrial fibrillation with left bundle branch block. The peak pharmacologic ECG was nondiagnostic secondary to baseline abnormalities. Occasional PVCs noted. There was no complaint of chest discomfort during pharmacologic infusion or recovery. The patient was injected with 14.8 millicuries of technetium 99m Cardiolite and subsequently rest SPECT Cardiolite nuclear imaging was obtained in the horizontal long, vertical long, and short axis views. The patient underwent pharmacologic (Regadenoson) evaluation. The patient was injected with 45.0 millicuries of technetium 99m Cardiolite and subsequently stress SPECT Cardiolite nuclear imaging was obtained in the horizontal long, vertical long, and short axis views. A gated Cardiolite study at peak stress was obtained. The examination was stopped secondary to completion of protocol. Rest and stress SPECT Cardiolite nuclear imaging status post realignment, normalization, and attenuation correction demonstrate mildly dilated left ventricular cavity. Mild fixed apical defect suggestive of apical thinning. No reversible perfusion defects. Gated studies revealed severe generalized hypokinesis. The reported LVEF is 20%. Impression: 1. Pharmacologic (Regadenoson) evaluation 2. Peak pharmacologic ECG nondiagnostic secondary to baseline abnormalities. 3. Occasional PVCs noted. 5. No reversible perfusion defects. Fixed apical defect likely secondary to apical thinning. 6. The gated Cardiolite study reports an LVEF of 20%. This note was generated with [employer]™ [employer] software. It may contain incorrect words, spelling, and punctuation that were not noted in checking the note before signing.
[2024-12-26 12:10] VITALS: PULSE 60
[2024-12-26 12:20] VITALS: BP 118/98; PULSE 60; RESP 15; TEMP 36.6; O2SAT 98
--- NOTE | 2024-12-26 12:43 | PN.HOSP_ITS ---
Reason for Visit Chief Complaint: Exertional dyspnea and lower extremity swelling Objective Data Objective Data Vital Signs: Vital Signs Temp Pulse Resp BP Pulse Ox O2 Del Method 97.8 F 60 15 118/98 H 98 Room Air 12/26/24 12:20 12/26/24 12:20 12/26/24 12:20 12/26/24 12:20 12/26/24 12:20 12/26/24 12:20 Oxygen Delivery Method Room Air Weight: 266 lb 8.622 oz Body Mass Index (BMI) 38.1 Intake & Output: Intake and Output for Last 24 Hours 12/24/24 12/25/24 12/26/24 23:59 23:59 23:59 Intake Total 15.67 / 18.17 947.99 / 947.99 348.69 / 348.69 Output Total 1175 / 1175 1550 / 2050 1400 / 1400 Balance -1159.33 / -1156.83 -602.01 / -1102.01 -1051.31 / -1051.31 Lab / Micro Data 12/26/24 04:47 12/26/24 04:47 Labs: Laboratory Results - last 24 hr 12/25/24 14:44: APTT 39.4 H 12/25/24 22:01: APTT 50.3 H 12/26/24 04:47: WBC 9.3, RBC 4.88, Hgb 15.0, Hct 46.1, MCV 94.5 H, MCH 30.7, MCHC 32.5, RDW Std Deviation 49.0 H, RDW Coeff of Paz 14.3, Plt Count 206, MPV 10.7, Immature Gran % (Auto) 0.300, Neut % (Auto) 55.8, Lymph % (Auto) 31.8, M melissa % (Auto) 10.5 H, Eos % (Auto) 1.3, Baso % (Auto) 0.3, Absolute Neuts (auto) 5.2, Absolute Lymphs (auto) 2.96, Nucleated RBC % 0, APTT 56.2 H, Sodium 138, Potassium 3.9, Chloride 103, Carbon Dioxide 22.2, Anion Gap 13, BUN 29 H, C reatinine 1.35 H, Estim Creat Clear Calc 73.01, Est GFR (MDRD) Non-Af 59 L, B UN/Creatinine Ratio 21.2 H, Glucose 110 H, Calcium 9.6, Triglycerides 68, Cholesterol 97, LDL Cholesterol, Calc 52, VLDL Cholesterol 14, HDL Cholesterol 31 L, Cholesterol/HDL Ratio 3.13, TSH 2.650, Free T4 1.30 Radiography Diagnostic Testing: Radiology Impression Echocardiogram 12/24/24 19:36 Interpretation Summary Moderately dilated left ventricle. Severe global LV systolic dysfunction. Estimated LVEF 5%. Stage I diastolic dysfunction. Mild global right ventricular systolic dysfunction. There is mild biatrial dilatation. Mild-Moderate (1-2+) mitral valve insufficiency. Mild (1+) tricuspid valve insufficiency. Mildly dilated aortic root. The study was technically difficult. Contrast injection was performed. Ordering Physician: Abhi Chong Performed By: Kathy Guzman RDCS Rhythm Strip Rhythm Strip: A-fib Rate: 88 Physical Exam Narrative Seen and examined Exertional dyspnea and orthopnea. He said he cannot lay supine because of his back and also shortness of breath. Plan for stress test today Mild intermittent lower sternal/xiphisternal localized pain with gait exacerbated on walking and laying down. Feels like reflux/heartburn. Denies having EGD. Shortness of breath and leg swelling lately worsening for 1-1/2 weeks. History of chronic heart failure Physical exam General: Alert, Oriented x3, Cooperative. BMI 34.8 kg/m?. Mild obesity HEENT: Atraumatic, PERRLA, EOMI, Normocephalic. Oral: No Gingival or Mucosal Lesions/ Ulcerations Neck: Supple, No JVD, Negative Carotid Bruits Chest wall/Lungs: Air entry diminished in bilateral lungs. No crepitation/rhonchi Cardiovascular: Atrial flutter on monitor e, Normal S1,S2, systolic murmur Abdomen: Bowel Sounds Present, Soft, Non Tender, Non-Distended : No dysuria. No renal angle tenderness. No suprapubic tenderness. Extremities: 2+ below-knee pedal edema, Capillary Refill Less than 3 Seconds Skin: No rashes, No breakdown Musculoskeletal: No Tenderness to Palpation of Joints or Extremities Neurological: Cranial nerves II-XII grossly intact, DTR 2+/4. No acute focal neurological deficit. Psych/Mental Status: Normal Affect, Appropriate. Assessment & Plan Assessment/Plan (1) Acute exacerbation of CHF (congestive heart failure): (2) Atrial flutter with rapid ventricular response: PLAN: Plan Patient is a 64-year-old male who presented [facility] ED on 12/24/2024 with exertional dyspnea and lower extremity swelling. 1. 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 Pulse ox 100% on room air. IV heparin drip ? Admit under inpatient status to PCU. Cardiology consulted. History of severe HFrEF with dilated cardiomyopathy in July 2022 with EF 15 to 20%. Stress test then was negative. Had good recovery with medical therapy with last echo in October 2022 with EF 50%. Mildly dilated LV, concentric LVH. Normal right ventricle. LA severely enlarged. Right atrium severely enlarged. Mild dilated cardiomyopathy last follow-up with Dr. Miller 2 years Plan: IV Cardizem drip. Hold home Coreg and lisinopril. Steerer consulted. 12/26: 2D echo done reported EF 5%, stage I diastolic dysfunction, moderately dilated LV with severe global systolic dysfunction. Mild global RV systolic dysfunction. Mild biatrial dilatation. 1-2+ MR, 1+ TR. Mild dilated aortic root. Lexiscan stress test reported no reversible perfusion defect, fixed apical defect. Occasional PVCs EF calculated through Cardiolite 20%. 2. CHF exacerbation secondary to tachycardia induced cardiomyopathy in setting of new onset A-fib/flutter, possibly due to untreated DELVIN as below. Troponin 60 > 59, 70 EKG showed slow atrial flutter with rate in the 120s with 2:1 conduction. compliance monitor shows a flutter with variable rate. BNP 7117. Per cardiology, patient initiated on heparin drip and will keep n.p.o. overnight for possible left heart cath tomorrow. Echo ordered. 12/25: Continue IV Lasix 40 mg twice daily, monitor daily BMP and urine output. 12/26: Discussed with Dr. Johnson. Continue Lasix 40 mg IV twice daily today and then changed to 40 IV daily from tomorrow. 2. CKD stage IIIa ? Creatinine 1.37 on admit, baseline 1.2-1.3. Monitor daily BMP and urine output while on IV Lasix as above. 12/25, BUN/creatinine 27/1.4. 12/26: Creatinine is improving 3. Class II obesity with suspected DELVIN ? BMI 38 on admit. Complicates hospital course and care. Patient with risk factors and history that seem consistent with DELVIN. Cardiology recommended sleep study for further evaluation in 2022 but patient never had this done. Strongly recommend outpatient sleep study for further evaluation shortly after discharge. 4. History of alcohol abuse ? History of heavy alcohol use prior to hospitalization in 2022 as above. Patient reports very minimal alcohol use since then. Alcohol level 0 on admit. DVT prophylaxis: Not indicated, on heparin drip CODE STATUS: Full code, verified Expected disposition: Home, TBD I talked to the patient's near the bedside. Laboratory Results 12/25/24 14:44: APTT 39.4 H 12/25/24 22:01: APTT 50.3 H 12/26/24 04:47: WBC 9.3, RBC 4.88, Hgb 15.0, Hct 46.1, MCV 94.5 H, MCH 30.7, MCHC 32.5, RDW Std Deviation 49.0 H, RDW Coeff of Paz 14.3, Plt Count 206, MPV 10.7, Immature Gran % (Auto) 0.300, Neut % (Auto) 55.8, Lymph % (Auto) 31.8, M melissa % (Auto) 10.5 H, Eos % (Auto) 1.3, Baso % (Auto) 0.3, Absolute Neuts (auto) 5.2, Absolute Lymphs (auto) 2.96, Nucleated RBC % 0, APTT 56.2 H, Sodium 138, Potassium 3.9, Chloride 103, Carbon Dioxide 22.2, Anion Gap 13, BUN 29 H, C reatinine 1.35 H, Estim Creat Clear Calc 73.01, Est GFR (MDRD) Non-Af 59 L, B UN/Creatinine Ratio 21.2 H, Glucose 110 H, Calcium 9.6, Triglycerides 68, Cholesterol 97, LDL Cholesterol, Calc 52, VLDL Cholesterol 14, HDL Cholesterol 31 L, Cholesterol/HDL Ratio 3.13, TSH 2.650, Free T4 1.30 Charges/Coding Visit Charges Inpatient E&M: 93730 Subs Hosp L2
[2024-12-26] MEDS: APIXABAN 5 MG TABLET PO ×2 (12:55→22:47)
--- NOTE | 2024-12-26 13:51 | CASEMGMT ---
ERASMO CARRILLO Assessment: Face to Face with pt for initial transition planning/care coordination assessment. ERASMO CARRILLO introduced self and role at [facility], pt voices understanding and consents to assessment. Pt is A&O x4 and answers all questions appropriately at this time. Pt ex in the room, pt agreeable to DC planning assessment with ex- present. Care providers, pharmacy, and demographics verified/updated. Strata: 2 Admitting Dx: NSTEMI with CHF PCP: No PCP, Pt provided with information in the ED. Specialists: Denies Preferred Pharmacy: [facility] Insurance: Self Pay Prescription Benefit: No LNOK: XW- [place] Living Arrangements: Pt lives with Rosanne in a 1 story home with 2 steps to enter. ADLs:I with ADls and IADLs. Transportation: Pt drives self and denies concerns with transportation. DME: Denies HHC/SNF: Denies 6 clicks - 24. Pt states no concerns with going home at time of dc. Pt states no further concerns/needs. CM to follow. Advised pt to ask CM if any further question/concerns/needs arise, voices understanding. Pt Goal: Home Plan: Home with family support. Follow for medication costs. Lizandro ZIMMERMAN CM
[2024-12-26 18:53] VITALS: BP 106/78; PULSE 81; RESP 17; TEMP 36.3; O2SAT 100
--- NOTE | 2024-12-26 19:00 | NURSING ---
Heparin signed off by this RN. med D/C and turned off during dayshift.
[2024-12-26 22:45] VITALS: BP 114/90; PULSE 89; RESP 16; TEMP 36.4; O2SAT 99
[2024-12-26 22:46] VITALS: BP 114/90; PULSE 89
[2024-12-27] VITALS (8 sets, daily range): BP systolic 92–132; BP diastolic 65–90; PULSE 65–98; RESP 14–18; TEMP 36.2–36.6; O2SAT 94–100; BMI 37.6
[2024-12-27 05:46] LABS: Hematocrit 45.0 % (40-54); Hemoglobin 14.2 g/dL (13.0-16.5); Immature Granulocytes Count 0.040 X10^3/uL (0.0-0.0); Mean Corp Hgb Conc 31.6 g/dL (32-36); Mean Corpuscular Volume 95.7 fL (80-94); Mean Platelet Vol. 11.0 fl (6.2-12.0); NRBC Flagged by Analyzer 0 % (0-5); Platelet Count 231 K/mm3 (150-450); RBC Distribution Width CV 14.3 % (11.6-14.6); RBC Distribution Width SD 50.0 fl (35.1-43.9); Red Blood Count 4.70 M/mm3 (4.6-6.2); White Blood Count 9.6 K/mm3 (4.4-11.0)
[2024-12-27 06:22] LABS: Anion Gap 12 (5-15); BUN 31 mg/dL (4-19); BUN/Creat Ratio 22.4 RATIO (10-20); Calcium,Total 9.7 mg/dL (7.6-11.0); Carbon Dioxide 28.7 mmol/L (21.0-32.0); Chloride 101 mmol/L (98-108); Estimated Creatinine Clearance 71.47 ml/min (50-250); Glucose 99 mg/dL (70-99); Potassium 4.1 mmol/L (3.3-5.1)
--- NOTE | 2024-12-27 07:45 | PCM.PN.CARD ---
Subjective Subjective Patient reports that his breathing is slightly better he sitting up in the chair at the bedside. Both of his lower extremities has been wrapped this morning he said prior to wrapping that he felt they had not improved in the edema. Objective Data Vital Signs: Vital Signs Temp Pulse Resp BP Pulse Ox O2 Del Method 97.5 F L 98 16 132/90 H 100 Room Air 12/27/24 04:00 12/27/24 04:00 12/27/24 04:00 12/27/24 04:00 12/27/24 04:00 12/27/24 04:00 Oxygen Delivery Method Room Air Weight: 263 lb 3.711 oz Body Mass Index (BMI) 37.6 Intake & Output: Intake and Output for Last 24 Hours 12/25/24 12/26/24 12/27/24 23:59 23:59 23:59 Intake Total 947.99 / 947.99 798.69 / 1038.69 240 / 240 Output Total 1550 / 2050 2750 / 4800 2550 / 2550 Balance -602.01 / -1102.01 -1951.31 / -3761.31 -2310 / -2310 Lab / Micro Data Attestation: I reviewed the patient's lab results. 12/27/24 05:04 12/27/24 05:04 Labs: Laboratory Results - last 24 hr 12/27/24 05:04: WBC 9.6, RBC 4.70, Hgb 14.2, Hct 45.0, MCV 95.7 H, MCH 30.2, MCHC 31.6 L, RDW Std Deviation 50.0 H, RDW Coeff of Paz 14.3, Plt Count 231, MPV 11.0, Immature Gran % (Auto) 0.400, Neut % (Auto) 60.7, Lymph % (Auto) 23.6, Rooks % (Auto) 12.7 H, Eos % (Auto) 2.3, Baso % (Auto) 0.3, Absolute Neuts (auto) 5.8, Absolute Lymphs (auto) 2.26, Nucleated RBC % 0, Sodium 141, Potassium 4.1, Chloride 101, Carbon Dioxide 28.7, Anion Gap 12, BUN 31 H, Creatinine 1.37 H, Estim Creat Clear Calc 71.47, Est GFR (MDRD) Non-Af 58 L, BUN/Creatinine Ratio 22.4 H, Glucose 99, Calcium 9.7 Rhythm Strip Rhythm Strip: A-fib Rate: 85 Cardiology Labs/Tests 12/27/24 05:04: WBC 9.6, RBC 4.70, Hgb 14.2, Hct 45.0, MCV 95.7 H, MCH 30.2, MCHC 31.6 L, Plt Count 231, MPV 11.0, Immature Gran % (Auto) 0.400, Neut % (Auto) 60.7, Lymph % (Auto) 23.6, Rooks % (Auto) 12.7 H, Eos % (Auto) 2.3, Baso % (Auto) 0.3, Absolute Neuts (auto) 5.8, Nucleated RBC % 0, Sodium 141, Potassium 4.1, Chloride 101, Carbon Dioxide 28.7, Anion Gap 12, BUN 31 H, Creatinine 1.37 H, Est GFR (MDRD) Non-Af 58 L, BUN/Creatinine Ratio 22.4 H, Glucose 99, Calcium 9.7 Rhythm: EKG: ECHO: Stress Test: Cardiac Cath: PCI: CT Surgery: Holter monitor: EPS: PPM: CXR: Chest CT Scan: Radiography Diagnostic Testing: Radiology Impression Echocardiogram 12/24/24 19:36 Interpretation Summary Moderately dilated left ventricle. Severe global LV systolic dysfunction. Estimated LVEF 5%. Stage I diastolic dysfunction. Mild global right ventricular systolic dysfunction. There is mild biatrial dilatation. Mild-Moderate (1-2+) mitral valve insufficiency. Mild (1+) tricuspid valve insufficiency. Mildly dilated aortic root. The study was technically difficult. Contrast injection was performed. Ordering Physician: Abhi Chong Performed By: Kathy Guzman RDCS Physical Exam Const alert and oriented x3 HEENT normocephalic Eyes EOMs intact bilaterally Neck no JVD Neck Narrative: Thick neck no JVD appreciated at 90 degrees. Chest inspection of chest normal Resp normal respiratory effort Auscultation: crackles bilateral base Cardio Cardio Narrative: Distant heart tones due to body habitus. Rate: regular rate Rhythm: abnormal rhythm regularly irregular Heart Sounds: S1 normal and S2 normal; Negative for click, gallop or murmur GI GI Narrative: Obese Extremity Extremity Narrative: Both lower extremities are wrapped. Neuro Neuro Narrative: Alert and oriented x 3 Psych mental status grossly normal Assessment & Plan Assessment/Plan (1) Congestive heart failure (CHF): QUALIFIERS: Heart failure chronicity: acute Heart failure type: systolic Qualified Code(s): I50.21 - Acute systolic (congestive) heart failure PLAN: Patient's echocardiogram shows an EF of 5-10%. His pharmacologic nuclear stress test estimated EF 20%. There was no evidence of ischemia on the stress test. There was noted apical thinning. The patient believes that he feels better today he is breathing easier. He is 100% saturated on room air seated in chair. Patient remains on IV furosemide. He is on losartan 25 mg daily metoprolol 50 mg twice daily and heart rate seems to have come under little better control. The etiology of his declining LV function from approximately 50% by his report from 2 years ago to now 5 to 10% is probably multifactorial. There may be some segmental abnormality at the apex but overall there is global LV dysfunction and this may be related to his tachycardia. These symptoms started about 6 weeks ago when he was diagnosed with influenza A and probably represents the initiation of his tachyarrhythmia. At this point in time the plan is to maintain the patient on oral anticoagulation therapy for 4 to 6 weeks will continue rate control with metoprolol 50 mg twice daily and if he does not convert to sinus rhythm would consider direct-current cardioversion after 6?8 weeks of oral anticoagulation therapy and amiodarone. We will add amiodarone after 4 weeks of oral anticoagulation as an ambulatory outpatient load prior to direct-current cardioversion. (2) A-fib: QUALIFIERS: Atrial fibrillation type: paroxysmal Qualified Code(s): I48.0 - Paroxysmal atrial fibrillation PLAN: At this point in time the plan is to maintain the patient on oral anticoagulation therapy for 4 to 6 weeks will continue rate control with metoprolol 50 mg twice daily and if he does not convert to sinus rhythm would consider direct-current cardioversion after 6?8 weeks of oral anticoagulation therapy and amiodarone. We will add amiodarone after 4 weeks of oral anticoagulation as an ambulatory outpatient load prior to direct-current cardioversion. (3) NSTEMI (non-ST elevated myocardial infarction): PLAN: Patient does not appear to have a type I non-STEMI this appears to be demand type ischemia. I do not feel that further invasive evaluation is indicated at this point in time the pharmacologic nuclear stress test did not show any active ischemia. PLAN: Plan 1. Continue to titrate guideline directed medical therapy as blood pressure and heart rate tolerate. Will add spironolactone today. 2. The patient is not a candidate for Jardiance or Entresto as he was unable to afford it in the past. 3. Patient should be follow-up in the [place] [facility] office 7 to 10 days after discharge. 4. After 4 weeks of oral anticoagulation therapy amiodarone will be added as a loading dose 400 mg twice daily for 10 days followed by 200 mg daily. 5. After amiodarone is fully loaded and the patient's been on uninterrupted Eliquis for 6-8 weeks direct-current cardioversion would be indicated if he remains in atrial fibs. 6. Following attempted jain of sinus rhythm and maximally tolerated guideline directed medical therapy for LV dysfunction the patient will be reevaluated with limited echo. 7. Given the patient's left bundle branch block if his EF remains less than 35% he would be a candidate for consideration for PERIODICALS LIBRARY ASSISTANT?D therapy. 8. Dr. Stewart will be covering the service starting tomorrow. Please give me a call if there is any questions or reconsult Dr. Castro. Charges/Coding Visit Charges Inpatient E&M: 13410 [facility] L3
[2024-12-27] MEDS: APIXABAN 5 MG TABLET PO ×2 (10:01→21:13)
--- NOTE | 2024-12-27 14:22 | PN.HOSP_ITS ---
Reason for Visit Chief Complaint: Exertional dyspnea and lower extremity swelling Objective Data Objective Data Vital Signs: Vital Signs Temp Pulse Resp BP Pulse Ox O2 Del Method 97.1 F L 65 18 100/73 99 Room Air 12/27/24 09:59 12/27/24 10:01 12/27/24 09:59 12/27/24 12:57 12/27/24 09:59 12/27/24 09:59 Oxygen Delivery Method Room Air Weight: 263 lb 3.711 oz Body Mass Index (BMI) 37.6 Intake & Output: Intake and Output for Last 24 Hours 12/25/24 12/26/24 12/27/24 23:59 23:59 23:59 Intake Total 947.99 / 947.99 798.69 / 1038.69 240 / 240 Output Total 1550 / 2050 2750 / 4800 2550 / 2550 Balance -602.01 / -1102.01 -1951.31 / -3761.31 -2310 / -2310 Lab / Micro Data 12/27/24 05:04 12/27/24 05:04 Labs: Laboratory Results - last 24 hr 12/27/24 05:04: WBC 9.6, RBC 4.70, Hgb 14.2, Hct 45.0, MCV 95.7 H, MCH 30.2, M CHC 31.6 L, RDW Std Deviation 50.0 H, RDW Coeff of Paz 14.3, Plt Count 231, MPV 11.0, Immature Gran % (Auto) 0.400, Neut % (Auto) 60.7, Lymph % (Auto) 23.6, M melissa % (Auto) 12.7 H, Eos % (Auto) 2.3, Baso % (Auto) 0.3, Absolute Neuts (auto) 5.8, Absolute Lymphs (auto) 2.26, Nucleated RBC % 0, Sodium 141, Potassium 4.1, Chloride 101, Carbon Dioxide 28.7, Anion Gap 12, BUN 31 H, Creatinine 1.37 H, Estim Creat Clear Calc 71.47, Est GFR (MDRD) Non-Af 58 L, BUN/Creatinine Ratio 22.4 H, Glucose 99, Calcium 9.7 Rhythm Strip Rhythm Strip: A-fib Rate: 85 Physical Exam Narrative Seen and examined Shortness of breath is better. Was admitted with exertional dyspnea and orthopnea. He said he cannot lay supine because of his back and also shortness of breath. Chest pain has resolved. Leg swelling is better. Physical exam General: Alert, Oriented x3, Cooperative. BMI 34.8 kg/m?. Mild obesity HEENT: Atraumatic, PERRLA, EOMI, Normocephalic. Oral: No Gingival or Mucosal Lesions/ Ulcerations Neck: Supple, No JVD, Negative Carotid Bruits Chest wall/Lungs: Air entry diminished in bilateral lungs. No crepitation/rhonchi Cardiovascular: Atrial flutter on monitor e, Normal S1,S2, systolic murmur Abdomen: Bowel Sounds Present, Soft, Non Tender, Non-Distended : No dysuria. No renal angle tenderness. No suprapubic tenderness. Extremities: 2+ below-knee pedal edema, Capillary Refill Less than 3 Seconds Skin: No rashes, No breakdown Musculoskeletal: No Tenderness to Palpation of Joints or Extremities Neurological: Cranial nerves II-XII grossly intact, DTR 2+/4. No acute focal neurological deficit. Psych/Mental Status: Normal Affect, Appropriate. Assessment & Plan Assessment/Plan (1) Acute exacerbation of CHF (congestive heart failure): (2) Atrial flutter with rapid ventricular response: PLAN: Plan Patient is a 64-year-old male who presented [facility] ED on 12/24/2024 with exertional dyspnea and lower extremity swelling. 1. 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 Pulse ox 100% on room air. IV heparin drip ? Admit under inpatient status to PCU. Cardiology consulted. History of severe HFrEF with dilated cardiomyopathy in July 2022 with EF 15 to 20%. Stress test then was negative. Had good recovery with medical therapy with last echo in October 2022 with EF 50%. Mildly dilated LV, concentric LVH. Normal right ventricle. LA severely enlarged. Right atrium severely enlarged. Mild dilated cardiomyopathy last follow-up with Dr. Miller 2 years Plan: IV Cardizem drip. Hold home Coreg and lisinopril. Silk Finisher consulted. 12/26: 2D echo done reported EF 5%, stage I diastolic dysfunction, moderately dilated LV with severe global systolic dysfunction. Mild global RV systolic dysfunction. Mild biatrial dilatation. 1-2+ MR, 1+ TR. Mild dilated aortic root. Lexiscan stress test reported no reversible perfusion defect, fixed apical defect. Occasional PVCs EF calculated through Cardiolite 20%. 12/27: Discussed with excavator operator. Continue guideline directed medical therapy as per patient hemodynamic tolerates. After 4 weeks of anticoagulation, plan for amiodarone radiation 400 mg twice daily for 10 days followed by 200 mg daily. After amiodarone is fully loaded and patient been on uninterrupted Eliquis for 6 to 8 weeks, cardioversion would be indicated if patient remains in A-fib. 2. CHF exacerbation secondary to tachycardia induced cardiomyopathy in setting of new onset A-fib/flutter, possibly due to untreated DELVIN as below. Troponin 60 > 59, 70 EKG showed slow atrial flutter with rate in the 120s with 2:1 conduction. wharf tally clerk shows a flutter with variable rate. BNP 7117. Per cardiology, patient initiated on heparin drip and will keep n.p.o. overnight for possible left heart cath tomorrow. Echo ordered. 12/25: Continue IV Lasix 40 mg twice daily, monitor daily BMP and urine output. 12/26: Discussed with Dr. Johnson. Continue Lasix 40 mg IV twice daily today and then changed to 40 IV daily from tomorrow. 12/27: Spironolactone added. Could not afford Entresto or Jardiance in the past. Advised follow-up with [place] [facility] in 7 to 10 days after discharge. 2. CKD stage IIIa ? Creatinine 1.37 on admit, baseline 1.2-1.3. Monitor daily BMP and urine output while on IV Lasix as above. 12/25, BUN/creatinine 27/1.4. 12/26: Creatinine is improving 3. Class II obesity with suspected DELVIN ? BMI 38 on admit. Complicates hospital course and care. Patient with risk factors and history that seem consistent with DELVIN. Cardiology recommended sleep study for further evaluation in 2022 but patient never had this done. Strongly recommend outpatient sleep study for further evaluation shortly after discharge. 4. History of alcohol abuse ? History of heavy alcohol use prior to hospitalization in 2022 as above. Patient reports very minimal alcohol use since then. Alcohol level 0 on admit. DVT prophylaxis: Not indicated, on heparin drip CODE STATUS: Full code, verified Expected disposition: Home, TBD Laboratory Results 12/27/24 05:04: WBC 9.6, RBC 4.70, Hgb 14.2, Hct 45.0, MCV 95.7 H, MCH 30.2, M CHC 31.6 L, RDW Std Deviation 50.0 H, RDW Coeff of Paz 14.3, Plt Count 231, MPV 11.0, Immature Gran % (Auto) 0.400, Neut % (Auto) 60.7, Lymph % (Auto) 23.6, M melissa % (Auto) 12.7 H, Eos % (Auto) 2.3, Baso % (Auto) 0.3, Absolute Neuts (auto) 5.8, Absolute Lymphs (auto) 2.26, Nucleated RBC % 0, Sodium 141, Potassium 4.1, Chloride 101, Carbon Dioxide 28.7, Anion Gap 12, BUN 31 H, Creatinine 1.37 H, Estim Creat Clear Calc 71.47, Est GFR (MDRD) Non-Af 58 L, BUN/Creatinine Ratio 22.4 H, Glucose 99, Calcium 9.7 Charges/Coding Visit Charges Inpatient E&M: 82593 Subs Hosp L2
--- NOTE | 2024-12-27 16:12 | CASEMGMT ---
Social Work SW attempted to speak w/pt regarding self pay status, is on the phone. SW will attempt to speak w/pt again as time allows regarding self pay status. ALEX Ayala
[2024-12-27] MEDS: 0.9% Saline Lock 10 ML Syringe IV ×2 (17:35→21:13)
[2024-12-28 03:45] VITALS: BP 117/88; PULSE 94; RESP 16; TEMP 36.4; O2SAT 99
[2024-12-28 06:40] LABS: Anion Gap 14 (5-15); BUN 31 mg/dL (4-19); BUN/Creat Ratio 24.1 RATIO (10-20); Calcium,Total 9.9 mg/dL (7.6-11.0); Carbon Dioxide 25.9 mmol/L (21.0-32.0); Chloride 100 mmol/L (98-108); Estimated Creatinine Clearance 75.91 ml/min (50-250); Glucose 95 mg/dL (70-99); Potassium 4.4 mmol/L (3.3-5.1); Pro- Brain NATRIURETIC PEPTIDE 4743 pg/mL (<=900)
[2024-12-28 08:57] VITALS: O2SAT 93
--- NOTE | 2024-12-28 09:29 | DCINST_ITS ---
Discharge Instructions DC O2, CPAP, BIPAP needs Home O2 Discharge instructions: No Dressing / Incision Discharge Activity: Return to Normal Activity Weight Bearing Status: Weight bearing as tolerated Dressing / Incision Call your doctor if you observe: Fever of 101 or Higher, Coldness, Increased Pain, Numbness or Tingling, Change in Color, Inability to urinate, Inability to have a bowel movement, Shortness of breath, Dizziness, Fainting spells, Swelling in the ankles, Chest pain, Prolonged hiccupping, Increased palpitations (irregular heartbeat) and Calf discomfort Follow Up Care When: IN 2 WEEKS Test Results: Test results from this visit will be discussed in further detail at your follow- up appointment, if applicable. Discharge Plan Admission Admit Date/Time: 12/24/24 19:31 Attending Provider: Baudilio Castellanos Primary Care Provider: Sarah Physician,Katie Primary Consulting Providers: Abhi Chong Discharge Orders/Prescriptions Prescriptions: New losartan 50 mg Tablet 50 mg PO DAILY 30 Days Qty: 30 2RF atorvastatin 40 mg Tablet 40 mg PO QHS 30 Days Qty: 30 2RF spironolactone 25 mg Tablet 25 mg PO DAILY 30 Days Qty: 30 2RF Rx Instructions: Hold for serum potassium more than 5.0 metoprolol tartrate 50 mg Tablet 50 mg PO BID 30 Days Qty: 60 2RF aspirin 81 mg Tablet,Chewable 81 mg PO BREAKFAST 30 Days Qty: 30 2RF Eliquis 5 mg Tablet 5 mg PO BID 30 Days Qty: 60 2RF Changed furosemide [Lasix] 40 mg tablet 40 mg PO BID 30 Days Qty: 60 3RF Discontinued potassium chloride [Klor-Con M20] 20 mEq tablet,ER particles/crystals See Rx Instructions .ROUTE .COMPLEX Qty: 90 3RF Dose Instruction: TAKE 1 TABLET BY MOUTH EVERY DAY FOR 60 DAYS Rx Instructions: TAKE 1 TABLET BY MOUTH EVERY DAY FOR 60 DAYS lisinopril 10 mg tablet 10 mg PO BID Qty: 180 3RF carvedilol 6.25 mg tablet 6.25 mg PO BID Qty: 180 3RF Referrals / Follow Up: Care Physician,No Primary [Primary Care Provider] Joseph Johnson MD [Med Staff - Active Staff, Cardiology] - Within 2 Weeks Referral Note: Follow-up in 1 to 2 weeks Disposition Disposition (needs filled in before D/C Order can be placed): Home, Self Care
--- NOTE | 2024-12-28 09:39 | DS.PCM_ITS ---
Providers Date of Admission: 12/24/24 Date of Discharge: 12/28/24 Primary Care Physician: Katie Primary Care Phys Consultations 12/25/24 08:00 Consult: Cardiology Routine Consulting Provider: Patric Colmenares Reason for Consult: A flutter, CHF exa, dyspnea EMERGENT Consult: No MD Notified: Yes Date Notified: 12/25/24 Time Notified: 08:00 Method of Notification: ED Physician Initiated Reason For Visit: NSTEMI WITH CHF Diagnosis Discharge Diagnosis (1) Acute exacerbation of CHF (congestive heart failure): Status: Chronic Code(s): I50.9 - Heart failure, unspecified (2) Atrial flutter with rapid ventricular response: Status: Acute Code(s): I48.92 - Unspecified atrial flutter Plan Patient is a 64-year-old male who presented [facility] ED on 12/24/2024 with exertional dyspnea and lower extremity swelling. 1. 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 Pulse ox 100% on room air. IV heparin drip ? Admit under inpatient status to PCU. Cardiology consulted. History of severe HFrEF with dilated cardiomyopathy in July 2022 with EF 15 to 20%. Stress test then was negative. Had good recovery with medical therapy with last echo in October 2022 with EF 50%. Mildly dilated LV, concentric LVH. Normal right ventricle. LA severely enlarged. Right atrium severely enlarged. Mild dilated cardiomyopathy last follow-up with Dr. Miller 2 years Plan: IV Cardizem drip. Hold home Coreg and lisinopril. Weight Calculator consulted. 12/26: 2D echo done reported EF 5%, stage I diastolic dysfunction, moderately dilated LV with severe global systolic dysfunction. Mild global RV systolic dysfunction. Mild biatrial dilatation. 1-2+ MR, 1+ TR. Mild dilated aortic root. Lexiscan stress test reported no reversible perfusion defect, fixed apical defect. Occasional PVCs EF calculated through [employer] 20%. 12/27: Discussed with textile screen maker. Continue guideline directed medical therapy as per patient hemodynamic tolerates. After 4 weeks of anticoagulation, plan for amiodarone radiation 400 mg twice daily for 10 days followed by 200 mg daily. After amiodarone is fully loaded and patient been on uninterrupted Eliquis for 6 to 8 weeks, cardioversion would be indicated if patient remains in A-fib. 12/28: Patient is doing good on baseline. Pulse ox 98% on room air. Heart rate blood pressure controlled. Still in A-fib. Patient given prescription for baby aspirin, Eliquis, losartan, metoprolol, atorvastatin and furosemide and spironolactone. Potassium supplement discontinued. Her previous medications lisinopril and carvedilol were discontinued. Advised follow-up with textile screen maker Dr. Joseph Johnson in 7 to 10 days. Home oxygen qualification test ordered 2. CHF exacerbation secondary to tachycardia induced cardiomyopathy in setting of new onset A-fib/flutter, possibly due to untreated DELVIN as below. Troponin 60 > 59, 70 EKG showed slow atrial flutter with rate in the 120s with 2:1 conduction. orthotic finish grinding technician shows a flutter with variable rate. BNP 7117. Per cardiology, patient initiated on heparin drip and will keep n.p.o. overnight for possible left heart cath tomorrow. Echo ordered. 12/25: Continue IV Lasix 40 mg twice daily, monitor daily BMP and urine output. 12/26: Discussed with Dr. Johnson. Continue Lasix 40 mg IV twice daily today and then changed to 40 IV daily from tomorrow. 12/27: Spironolactone added. Could not afford Entresto or Jardiance in the past. Advised follow-up with [facility] in 7 to 10 days after discharge. 2. CKD stage IIIa ? Creatinine 1.37 on admit, baseline 1.2-1.3. Monitor daily BMP and urine output while on IV Lasix as above. 12/25, BUN/creatinine 27/1.4. 12/26: Creatinine is improving 12/28 creatinine is on baseline 1.29. 3. Class II obesity with suspected DELVIN ? BMI 38 on admit. Complicates hospital course and care. Patient with risk factors and history that seem consistent with DELVIN. Cardiology recommended sleep study for further evaluation in 2022 but patient never had this done. Strongly recommend outpatient sleep study for further evaluation shortly after discharge. 4. History of alcohol abuse ? History of heavy alcohol use prior to hospitalization in 2022 as above. Patient reports very minimal alcohol use since then. Alcohol level 0 on admit. DVT prophylaxis: Not indicated, on heparin drip CODE STATUS: Full code, verified Discharge medication reconciliation done. Discharge follow-up instructions completed. Discharge process discussed with the patient and all questions were answered to patient's satisfaction. Follow with PCP in 1 to 2 weeks Total time spent, exact 35 minutes on discharge meds reconciliation, examination, coordination of care with nurses and ancillary staff, review of imaging and blood test and discussion with the patient on follow-up instructions. Laboratory Results 12/27/24 05:04: WBC 9.6, RBC 4.70, Hgb 14.2, Hct 45.0, MCV 95.7 H, MCH 30.2, M CHC 31.6 L, RDW Std Deviation 50.0 H, RDW Coeff of Paz 14.3, Plt Count 231, MPV 11.0, Immature Gran % (Auto) 0.400, Neut % (Auto) 60.7, Lymph % (Auto) 23.6, M melissa % (Auto) 12.7 H, Eos % (Auto) 2.3, Baso % (Auto) 0.3, Absolute Neuts (auto) 5.8, Absolute Lymphs (auto) 2.26, Nucleated RBC % 0, Sodium 141, Potassium 4.1, Chloride 101, Carbon Dioxide 28.7, Anion Gap 12, BUN 31 H, Creatinine 1.37 H, Estim Creat Clear Calc 71.47, Est GFR (MDRD) Non-Af 58 L, BUN/Creatinine Ratio 22.4 H, Glucose 99, Calcium 9.7 Medications at Discharge Home Medications apixaban 5 mg tablet (Eliquis) 5 mg PO BID 30 days #60 tabs 12/28/24 aspirin 81 mg chewable tablet 81 mg PO BREAKFAST 30 days #30 tabs 12/28/24 atorvastatin 40 mg tablet 40 mg PO QHS 30 days #30 tabs 12/28/24 furosemide 40 mg tablet (Lasix) 40 mg PO BID 30 days #60 tabs 12/28/24 losartan 50 mg tablet 50 mg PO DAILY 30 days #30 tabs 12/28/24 metoprolol tartrate 50 mg tablet 50 mg PO BID 30 days #60 tabs 12/28/24 spironolactone 25 mg tablet 25 mg PO DAILY 30 days #30 tabs 12/28/24 Physical Exam Narrative Seen and examined Shortness of breath is better. Was admitted with exertional dyspnea and orthopnea.shortness of breath is better. Chest pain has resolved. Leg swelling is much improved Physical exam General: Alert, Oriented x3, Cooperative. BMI 34.8 kg/m?. Mild obesity HEENT: Atraumatic, PERRLA, EOMI, Normocephalic. Oral: No Gingival or Mucosal Lesions/ Ulcerations Neck: Supple, No JVD, Negative Carotid Bruits Chest wall/Lungs: Air entry diminished in bilateral lungs. No crepitation/rhonchi Cardiovascular: Atrial flutter on monitor e, Normal S1,S2, systolic murmur Abdomen: Bowel Sounds Present, Soft, Non Tender, Non-Distended : No dysuria. No renal angle tenderness. No suprapubic tenderness. Extremities: 1+ below-knee pedal edema, Capillary Refill Less than 3 Seconds Skin: No rashes, No breakdown Musculoskeletal: No Tenderness to Palpation of Joints or Extremities Neurological: Cranial nerves II-XII grossly intact, DTR 2+/4. No acute focal neurological deficit. Psych/Mental Status: Normal Affect, Appropriate. Weight / BMI Weight Weight: 263 lb 3.711 oz Body Mass Index (BMI) 37.6 ABG / Lab / Microbiology Data 12/27/24 05:04 12/28/24 05:40 Laboratory: Laboratory Results - last 24 hr 12/28/24 05:40: Sodium 139, Potassium 4.4, Chloride 100, Carbon Dioxide 25.9, Anion Gap 14, BUN 31 H, Creatinine 1.29 H, Estim Creat Clear Calc 75.91, Est GFR (MDRD) Non-Af 62, BUN/Creatinine Ratio 24.1 H, Glucose 95, Calcium 9.9, NT pro BNP II 4743 H D/C Instructions Weight Bearing Status: Weight bearing as tolerated Call your doctor if you observe: Fever of 101 or Higher, Coldness, Increased Pain, Numbness or Tingling, Change in Color, Inability to urinate, Inability to have a bowel movement, Shortness of breath, Dizziness, Fainting spells, Swelling in the ankles, Chest pain, Prolonged hiccupping, Increased palpitations (irregular heartbeat) and Calf discomfort DC O2, CPAP, BIPAP Needs Home O2 Discharge instructions: No When: IN 2 WEEKS Meaningful Use Info Meaningful Use Meaningful Use Diagnoses (Choose all that apply): None applicable and CHF CHF EMIL/ARB ordered at discharge?: Yes Documented LVEF (%): 5 Discharge Plan Admission Admit Date/Time: 12/24/24 19:31 Attending Provider: Baudilio Castellanos Primary Care Provider: Care Physician,No Primary Consulting Providers: Abhi Chong Discharge Orders/Prescriptions Prescriptions: New losartan 50 mg Tablet 50 mg PO DAILY 30 Days Qty: 30 2RF atorvastatin 40 mg Tablet 40 mg PO QHS 30 Days Qty: 30 2RF spironolactone 25 mg Tablet 25 mg PO DAILY 30 Days Qty: 30 2RF Rx Instructions: Hold for serum potassium more than 5.0 metoprolol tartrate 50 mg Tablet 50 mg PO BID 30 Days Qty: 60 2RF aspirin 81 mg Tablet,Chewable 81 mg PO BREAKFAST 30 Days Qty: 30 2RF Eliquis 5 mg Tablet 5 mg PO BID 30 Days Qty: 60 2RF Changed furosemide [Lasix] 40 mg tablet 40 mg PO BID 30 Days Qty: 60 3RF Discontinued potassium chloride [Klor-Con M20] 20 mEq tablet,ER particles/crystals See Rx Instructions .ROUTE .COMPLEX Qty: 90 3RF Dose Instruction: TAKE 1 TABLET BY MOUTH EVERY DAY FOR 60 DAYS Rx Instructions: TAKE 1 TABLET BY MOUTH EVERY DAY FOR 60 DAYS lisinopril 10 mg tablet 10 mg PO BID Qty: 180 3RF carvedilol 6.25 mg tablet 6.25 mg PO BID Qty: 180 3RF Referrals / Follow Up: Joseph Johnson MD [Med Staff - Active Staff, Cardiology] - Within 2 Weeks Referral Note: Follow-up in 1 to 2 weeks Care Physician,No Primary [Primary Care Provider, Medical] Disposition Disposition (needs filled in before D/C Order can be placed): Home, Self Care Charges/Coding Visit Charges Inpatient E&M: 72348 Disch Hosp >30min
[2024-12-28 09:42] VITALS: BP 133/90; PULSE 85; RESP 14; TEMP 36.7; O2SAT 98
[2024-12-28 09:43] VITALS: PULSE 85
[2024-12-28] MEDS: APIXABAN 5 MG TABLET PO (09:43)
--- NOTE | 2024-12-28 10:06 | CASEMGMT ---
Addendum entered by Izzy Davis 12/28/24 10:40: [facility] returns call and states that the Eliquis is very expensive. Notified the pt of the once per life savings card and pt prefers to use. [facility] was able to apply the savings card and the [place] is free @ [place]. Otherwise, the other medications come to a total of 91$. Pt states that he can afford this and that he is content with the spencer. Pt states that he feels safe returning home today and denies further questions or concerns at this time. Per the actuarial associate, pt does not qualify for home oxygen. No further needs identified at this time. Original Note: Pt has an order for DC placed. Dr Castellanos reports that he discussed where the pt would like his prescriptions sent to and states that the pt prefers [facility] in [place]. TC to [facility] in [place] to check medication costs as the pt does not appear to have any prescription coverage or benefits. [facility] states that they are still processing the medications and that it will take about an hour before they can call this RN CM back with a spencer. [facility] states that they can utilize savings cards to help reduce the spencer of some of the medications for the pt. CM to continue to follow.
--- NOTE | 2024-12-28 10:26 | CASEMGMT ---
Social Work SW spoke with the patient. Patient reported he is employed but he does not have health insurance with his employer. SW provided the patient with information on assistance with prescriptions and medical care. SW provided the patient with information on the health insurance marketplace. ZOE Trejo
[2024-12-28 10:31] VITALS: O2SAT 92; O2SAT 96
--- NOTE | 2024-12-28 15:20 | PHA.DC.MR.R ---
Pharmacy [place] Med Reconciliation Pharmacy Service has performed discharge medication reconciliation for this patient. Medication education papers prepared, patient discharged before counseling was attempted. The patient's discharge medication list was reviewed for discrepancies and discrepancies were resolved. Medications at Discharge Home Medications apixaban 5 mg tablet (Eliquis) 5 mg PO BID 30 days #60 tabs 12/28/24 aspirin 81 mg chewable tablet 81 mg PO BREAKFAST 30 days #30 tabs 12/28/24 atorvastatin 40 mg tablet 40 mg PO QHS 30 days #30 tabs 12/28/24 furosemide 40 mg tablet (Lasix) 40 mg PO BID 30 days #60 tabs 12/28/24 losartan 50 mg tablet 50 mg PO DAILY 30 days #30 tabs 12/28/24 metoprolol tartrate 50 mg tablet 50 mg PO BID 30 days #60 tabs 12/28/24 spironolactone 25 mg tablet 25 mg PO DAILY 30 days #30 tabs 12/28/24
== END 2024-12-28 11:45 | disposition home or self-care (01) | DRG 291 ==
LOC: ED 19:20 → PCU 19:58
PROVIDERS: Internal Medicine Cardiovascular Disease; Admitting Provider Hospitalist; Emergency Provider Emergency Medicine; Visit Provider Internal Medicine
DX: I13.0 Hypertensive heart and chronic kidney disease with heart failure and stage 1 through stage 4 chronic kidney disease, or unspecified chronic kidney disease (principal); I50.43 Acute on chronic combined systolic (congestive) and diastolic (congestive) heart failure; I24.89 Other forms of acute ischemic heart disease; I48.92 Unspecified atrial flutter; N18.31 Chronic kidney disease, stage 3a; I42.6 Alcoholic cardiomyopathy; E66.812 Obesity, class 2; I42.0 Dilated cardiomyopathy; G47.33 Obstructive sleep apnea (adult) (pediatric); I48.0 Paroxysmal atrial fibrillation; Z87.891 Personal history of nicotine dependence; Z68.38 Body mass index [BMI] 38.0-38.9, adult
CPT/HCPCS: 36415; 71046; 78452; 80048; 80061; 82077; 83735; 83880; 84100; 84439; 84443; 84484; 85025; 85610; 85730; 93005; 93017; 93306; 94668; 94762; 97802; 99285; A9500; Q9957; A4216; C8929; J1938; J2785

== ENCOUNTER → 2025-01-05 | Outpatient (CLI) | payer SELFPAY ==
[2025-01-05 13:11] LABS: Anion Gap 14 (5-15); BUN 31 mg/dL (4-19); BUN/Creat Ratio 20.6 RATIO (10-20); Calcium,Total 9.5 mg/dL (7.6-11.0); Carbon Dioxide 23.4 mmol/L (21.0-32.0); Chloride 99 mmol/L (98-108); Glucose 99 mg/dL (70-99); Potassium 3.9 mmol/L (3.3-5.1)
== END | disposition home or self-care (01) ==
PROVIDERS: Referring Provider Nurse Practitioner Gerontology; Visit Provider Nurse Practitioner Gerontology
DX: I48.0 Paroxysmal atrial fibrillation (principal)
CPT/HCPCS: 36415; 80048

== ENCOUNTER 2025-01-27 12:04 | Emergency (ER) | payer SELFPAY ==
[2025-01-27 12:05] VITALS: BP 111/82; PULSE 98; RESP 16; TEMP 36.3; O2SAT 98; BMI 36.9
[2025-01-27] MEDS: TRANEXAMIC ACID 1,000 MG/10 ML ML OPERA.SITE (14:13)
[2025-01-27] MEDS: HYDROcodone Bitartrate/Apap 5/325 Tablet PO (15:15)
[2025-01-27 15:43] VITALS: BP 111/82; PULSE 98; RESP 16; TEMP 36.3; O2SAT 98
--- NOTE | 2025-01-27 17:01 | EDS_ITS ---
HPI History of Present Illness Chief Complaint: Nosebleed Narrative Narrative: Pt is a 64-year-old male who has been having intermittent nosebleed on the right side from last night into today. Patient had called Dr. Johnson's office, and was told to hold on taking Eliquis. Patient came into the ER with his . Patient had a nasal clip placed on triage while patient was waiting to be seen. When I saw the patient, he was not having any type of active bleeding. Patient has no headache or neck pain. No abdominal pain nausea or vomiting. No other bleeding or bruising. Patient has no blood to the posterior pharynx. REVIEW OF SYSTEMS: Unless otherwise stated in this report the patient's positive and negative responses for review of systems for constitutional, eyes, ENT, cardiovascular, respiratory, gastrointestinal, neurological, , musculoskeletal, and integument systems and related systems to the presenting problem are either stated in the history of present illness or were not pertinent or were negative for the symptoms and/or complaints related to the presenting medical problem. Nurse's notes and vital signs reviewed. The patient is not hypoxic. Vital signs reviewed and patient is not hypoxic. General: The patient appears well and in no apparent distress. Patient is resting comfortably on cart. Not toxic, lethargic, or listless. Skin: Warm, dry, no pallor noted. There is no rash noted. Head: Normocephalic, atraumatic Eye: Normal conjunctiva, no drainage, EOMI. PERRL. Ears, Nose, Mouth, and Throat: oral mucosa is moist. Nares patent. Mouth without vesicles. Patient has evidence of abrasions to the medial wall of the right nostril. Patient has no active bleeding noted from the right nostril, no blood to the posterior pharynx. Cardiovascular: Regular Rate and Rhythm, no murmurs, gallops, or rubs Respiratory: Patient is in no distress, no accessory muscle use, lungs are clear to auscultation, no wheezing, rales or rhonchi Back: non-tender, no CVA tenderness bilaterally to percussion. GI: Soft, obese, no tenderness to palpation, Musculoskeletal: The patient has full range of motion of all extremities and joints with no difficulty. Patient has no motor, no sensory deficits. Neurological: A&O x4, normal speech, no focal neurological deficits. Psychiatric: [facility], [place] Medical History (Updated 01/27/25 @ 15:[address] John Valdez, DO) A-fib NSTEMI (non-ST elevated myocardial infarction) Atrial flutter with rapid ventricular response Essential hypertension History of ETOH abuse Elevated blood pressure reading Home Medications ?Medication ?Instructions ?Recorded ?Last Taken ?Type aspirin 81 mg chewable tablet 81 mg PO BREAKFAST 30 da ys #30 tabs 12/28/24 Unknown Rx atorvastatin 40 mg tablet 40 mg PO QHS 30 days #30 tab s 12/28/24 Unknown Rx losartan 50 mg tablet 50 mg PO DAILY 30 days #30 t abs 12/28/24 Unknown Rx metoprolol tartrate 50 mg tablet 50 mg PO BID 30 days #60 tabs 12/28/24 Unknown Rx spironolactone 25 mg tablet 25 mg PO DAILY 30 days #30 tabs 12/28/24 Unknown Rx amiodarone 200 mg tablet See Rx Instructions PO .COMP J LUIS 01/05/25 Unknown Rx #70 tabs apixaban 5 mg tablet (Eliquis) 5 mg PO BID #180 tabs 0 01/09/25 Unknown Rx Held on 01/27/25. Instructions: NOSEBLEED furosemide 40 mg tablet (Lasix) 40 mg PO QDAY 30 days #30 tabs 01/17/25 Unknown Rx cephalexin 500 mg capsule 500 mg PO Q12 #14 CAPSULES 1 Unknown Rx hydrocodone-acetaminophen 5-325mg 1 tab PO Q4H PRN PRN Pain 2 days 01/27/25 Unknown Rx 5mg-325mg #8 TABLETS Allergy/AdvReac Type Severity Reaction Status Date / Time No Known Allergies Allergy Verified 01/27/25 12:04 Family History Other COPD (chronic obstructive pulmonary disease) Heart disease Social History household members: spouse Smoking Status: Former smoker how long ago did patient quit smokin years ago alcohol intake: never substance use type: marijuana caffeine: No (None in the last couple of weeks) EXAM Physical Exam Const Vital Signs: 01/27/25 12:05 01/27/25 15:43 Temperature 97.4 F L 97.4 F L Temperature Source Temporal Pulse Rate 98 98 Respiratory Rate 16 16 Blood Pressure 111/82 H 111/82 H Blood Pressure Mean 91 91 Pulse Ox 98 98 Oxygen Delivery Method Room Air MDM MDM MDM Narrative Medical decision making narrative: Procedure note: Patient had gentle blowing of his nose from the right nostril, he had no clot or blood noted in the right nostril. Patient then started having some slow trickling bleeding again coming from the medial wall of the right nostril. He has no septal hematoma, no septal deviation. Patient had 2 TXA soaked gauze that was placed into the right nostril and patient held pressure firmly for 25 minutes with his hand and fingers. 2, balls were slowly removed by myself, patient started having slow oozing of blood coming from the right medial wall of the right nostril. Patient then had a 5.5 Rhino Rocket anterior that was placed into the right nostril. Patient initially had the Rhino Rocket placed, and patient had 5 cc of air placed. I was called away for critical patient, I came away and patient stated his discomfort was 7/10. I added 1 more cc of air into the balloon, however there is no blood trickling from his right nostril and no blood noted to the posterior pharynx at that time. Patient had a total of 6 cc of air placed. Patient Toller procedure well having some mild discomfort secondary to pressure. Patient was given a Keflex and Energy. Patient will hold his Eliquis tonight on the recommendation from his emergency room clinician Dr. Johnson. It is recommended patient start taking Eliquis again tomorrow, he has not had any significant blood loss in the ER at all. Patient was referred to ENT. Patient will call ENT for follow-up on Thursday or Thursday. Patient is aware he can go back to the ER if needed. Multiple bedside visits were made to assess patient holding pressure initially on his own, placing, bolus of TXA, reassessing patient, placing Rhino Rocket, reassessing several times, discharge education. Greater than 35 minutes has been spent at the time excluding procedure. Critical care time 32 minutes exclusive from separate billable procedures that were performed. The following was considered in the determination of critical care but not limited to the level of medical decision making, intensive cardiac and/or respiratory monitoring, frequent vital sign monitoring, evaluation of laboratory studies, evaluation of radiographic studies, oxygen monitoring, and constant monitoring and speaking to family at bedside Discharge Plan Triage Chief Complaint: Nosebleed ED Provider: John Valdez Dx/Rx/DC Orders Clinical Impression: Right-sided nosebleed Instructions: ED Epistaxis (Adult) Prescriptions: New hydrocodone-acetaminophen 5-325 mg tablet 1 tab PO Q4H PRN PRN (Reason: Pain) 2 Days Qty: 8 0RF cephalexin 500 mg capsule 500 mg PO Q12 Qty: 14 0RF No Action amiodarone 200 mg tablet See Rx Instructions PO .COMPLEX Qty: 70 11RF Rx Instructions: 400mg BID x 10 days, then 200mg daily losartan 50 mg Tablet 50 mg PO DAILY 30 Days Qty: 30 2RF atorvastatin 40 mg Tablet 40 mg PO QHS 30 Days Qty: 30 2RF spironolactone 25 mg Tablet 25 mg PO DAILY 30 Days Qty: 30 2RF Rx Instructions: Hold for serum potassium more than 5.0 metoprolol tartrate 50 mg Tablet 50 mg PO BID 30 Days Qty: 60 2RF aspirin 81 mg Tablet,Chewable 81 mg PO BREAKFAST 30 Days Qty: 30 2RF Eliquis 5 mg tablet 5 mg PO BID Qty: 180 3RF Rx Instructions: Fax to [facility] furosemide [Lasix] 40 mg tablet 40 mg PO QDAY 30 Days Qty: 30 3RF Primary Care Provider: Care Physician,No Primary Referrals: Zaki Smith MD [Med Staff - Active Staff, Ear Nose Throat (ENT)] Care Physician,No Primary [Primary Care Provider, Medical] Activity Restrictions/Additional Instructions: Hold your dose of Eliquis tonight as instructed by your emergency room clinician. You may restart your Eliquis tomorrow. If bleeding should restart, hold firm pressure for 20 continuous minutes as we had today in the ER, and if bleeding is still continuing, return back to the ER for reevaluation. Call ENT today to make a follow-up appointment for Thursday or Thursday. You are prescribed antibiotic prophylactically. Pain medication use as needed. You may alternate Tylenol and either Motrin, Advil, or ibuprofen every 4 hours for pain or fever. You may substitute Energy for Tylenol if the pain is severe. However, do not take Energy and Tylenol together, you may accidentally take too much Tylenol in 1 day. The maximum dose of Tylenol daily is 3000 mg. The maximum dose of either Motrin, Advil, or ibuprofen is 2400 mg daily. Take medication with food or drink to help buffer the medication in your stomach. Print Language: Libyan Disposition Disposition: Home, Self Care Discharge Date/Time: 01/27/25 15:43
== END 2025-01-27 15:43 | disposition home or self-care (01) ==
PROVIDERS: Emergency Provider Emergency Medicine; Visit Provider Emergency Medicine
DX: R04.0 Epistaxis (principal); Z87.891 Personal history of nicotine dependence
CPT/HCPCS: 30901; 99282

== ENCOUNTER 2025-01-29 05:38 | Emergency (ER) | payer SELFPAY ==
[2025-01-29 05:39] VITALS: BP 129/104; PULSE 143; RESP 34; TEMP 36.7; O2SAT 93; BMI 37.1
--- NOTE | 2025-01-29 05:49 | EKG12_ITS ---
Test Reason : CP/SOB Blood Pressure : */* mmHG Vent. Rate : 119 BPM Atrial Rate : * BPM P-R Int : * ms QRS Dur : 156 ms QT Int : 310 ms P-R-T Axes : * 67 237 degrees QTcB Int : 436 ms Atrial fibrillation with rapid ventricular response Left bundle branch block Abnormal ECG Confirmed by MARYAM HUBBARD, HODA ([id number]), editor greeting card JUAN TOSCANO ([id number]) on 01/30/2025 10:37:35 AM Referred By: CARTER Confirmed By: HODA FRANCISCO MD
[2025-01-29 06:00] VITALS: BP 113/98; PULSE 129; RESP 28; O2SAT 98
--- NOTE | 2025-01-29 06:10 | RAD_ITS ---
PROCEDURE: CHEST PA AND LATERAL 01/29/2025 REASON FOR EXAM: DYSPNEA TECHNIQUE: Procedure Code: RADCXR Modality: DX Procedure: CHEST PA AND LATERAL COMPARISON: 12/24/2024 FINDINGS: Hardware: None. Heart: Heart size is mildly enlarged but stable. Mediastinum: The mediastinal contour is unremarkable. Lungs: Mild pulmonary vascular congestion unchanged. No definite pneumothorax or sizable pleural effusion. Bones: The bones are unremarkable. RAD/Chest PA and Lateral IMPRESSION: Stable mild cardiomegaly and mild pulmonary vascular congestion. Reading [facility]
--- OUTSIDE RECORDS SUMMARY | 2025-01-29 06:13 | XMS RPT_ITS | CCD ---
Author Organization [facility] Care Team Providers Care Superintendent Menagerie Name Role Phone Unavailable Primary Care Provider UnavailDr. Marques Blanco Emergency Provider Care Physician, No Primary Primary Care Provider Unavailable Dr. Aren Valderrama Admit Provider Dr. Aren Valderrama Other Provider Dr. Khai Ro Attending Provider Unavailable Dr. Khai Ro Other Provider Unavailable Dr. Whitley Dobson Attending Provider Dr. Tim Miller Other Provider Dr. Tim Miller Attending Provider Care Physician, No Primary Referring Provider Un available Roof OPERATIONS RESEARCH MANAGER, OPERATIONS RESEARCH MANAGER-C Benito H Attending Provider Roof OPERATIONS RESEARCH MANAGER, OPERATIONS RESEARCH MANAGER-C Benito H Referring Provider Roof OPERATIONS RESEARCH MANAGER, OPERATIONS RESEARCH MANAGER-C Benito H Other Provider Roof OPERATIONS RESEARCH MANAGER, OPERATIONS RESEARCH MANAGER-C Benito H Referring Provider Care Physician, No Primary Primary Care Provider Unavailable Dr. Yuniel Hoffman MD Emergency Provider Dr. Abhi Chong DO Admit Provider Dr. Abhi Chong DO Attending Provider Care Physician, No Primary Primary Care Physicia n Unavailable Dr. Yuniel Hoffman MD Emergency Department Physician Dr. Abhi Chong DO Admitting Physician Dr. Abhi Chong DO Nurse Practitioner Emanuel HUBBARD, Dr. Astudillo Attending Physician Emanuel HUBBARD, Dr. Astudillo Nurse Practitioner Dedra HUBBARD, Dr. Spivey Nurse Practitioner Unavailab maria del carmen Colmenares MD, Dr. Spivey Attending Physician Unavailjavi Miller MD, Dr. Dumont Attending Physician [phone] Dr. Joseph Johnson MD Attending Physician Care Physician, No Primary Referring Provider Un available Christopher MCMILLAN-C, Jessika Attending Physician [phone] Christopher OPERATIONS RESEARCH MANAGER-C, Jessika Referring Provider [phone] Abhi Chong Admitting Unavailable Ahbi Chong Attending Unavailable Abhi Chong Consulting Unavailable Care Physician, No Primary Primary Care Unava ilable Joseph Johnson Attending Unavailable Care Physician, No Primary Primary Care Unava ilable Care Physician, No Primary Primary Care Unava ilable Jessika White NP Referring Unavailable Christopher MCMILLAN, Jessika Attending Unavailable Baudilio Castellanos Attending Unavailable Patric Colmenares Consulting Unavailable Baudilio Castellanos Consulting Unavailable Patric Colmenares Attending Unavailable Tim Miller Attending Unavailable Care Physician, No Primary Primary Care Unava ilable Joseph Johnson Attending Unavailable Abhi Chong Consulting Unavailable Care Physician, No Primary Primary Care Unava ilable Baudilio Castellanos Attending Unavailable Abhi Chong Admitting Unavailable Care Physician, No Primary Primary Care Unava ilable Care Physician, No Primary Referring Unava ilable Christopher MCMILLAN, Jessika Attending Unavailable Medications Current Medications Medication Drug Class(es) Dates Sig (Normalized) Sig (Original) amiodarone hydrochloride 200 mg oral tablet (1 source) Antiarrhythmic Start: 01-05-2025 take 2 tablets by mouth twice daily, then take 1 tablet by mouth once daily apixaban 5 mg oral tablet (3 sources) Factor Xa Inhibitor Start: 01-09-2025 take 1-833 tablets by mouth twice daily Start: 12-28-2024 End: 01-09-2025 take 1 tablet by mouth twice daily Apixaban (Eliquis) 5 mg Tablet Discontinued 5 mg PO TWICE A DAY 60 30 2 December 28, 2024 12:00am January 09, 2025 2:19pm aspirin 81 mg chewable tablet (2 sources) Platelet Aggregation Inhibitor, Nonsteroidal Anti-inflammatory Drug Start: 12-28-2024 take 1 tablet by mouth at breakfast atorvastatin 40 mg oral tablet (2 sources) HMG-CoA Reductase Inhibitor Start: 12-28-2024 take 1 tablet by mouth at bedtime furosemide 40 mg oral tablet (18 sources) Loop Diuretic Start: 12-28-2024 take 1 tablet by mouth twice daily Start: 07-16-2022 End: 12-28-2024 take 1 tablet by mouth once daily Furosemide (Lasix) 40 mg tablet Discontinued 40 mg PO DAILY 90 August 29, 2024 12:42pm December 28, 2024 9:38am losartan potassium 50 mg oral tablet (2 sources) Angiotensin 2 Receptor Yosef Start: 12-28-2024 take 1 tablet by mouth once daily metoprolol tartrate 50 mg oral tablet (2 sources) beta-Adrenergic Yosef Start: 12-28-2024 take 1 tablet by mouth twice daily spironolactone 25 mg oral tablet (2 sources) Aldosterone Antagonist Start: 12-28-2024 Completed/Discontinued Medications Medication Drug Class(es) Dates Sig (Normalized) Sig (Original) carvedilol 6.25 mg oral tablet (20 sources) alpha-Adrenergic Yosef, beta-Adrenergic Yosef Start: 07-30-2022 End: 12-28-2024 take 1 tablet by mouth twice daily Carvedilol 6.25 mg tablet Discontinued 6.25 mg PO TWICE A DAY 180 August 23, 2024 11:04am December 28, 2024 9:36am Start: 07-16-2022 End: 07-30-2022 take 1 tablet by mouth twice daily Carvedilol 3.125 mg Tablet Discontinued 3.125 mg PO TWICE A DAY 120 60 0 July 16, 2022 12:00am July 30, 2022 10:24am dapagliflozin 10 mg oral tablet (5 sources) Sodium-Glucose Cotransporter 2 Inhibitor Start: 07-30-2022 End: 08-26-2022 take 1 tablet by mouth once daily Dapagliflozin Propanediol (Farxiga) 10 mg tablet Discontinued 10 mg PO DAILY 30 July 30, 2022 12:00am August 26, 2022 2:00pm empagliflozin 10 mg oral tablet (6 sources) Sodium-Glucose Cotransporter 2 Inhibitor Start: 07-16-2022 End: 07-30-2022 take 1 tablet by mouth once daily Empagliflozin (Jardiance) 10 mg Tablet Discontinued 10 mg PO DAILY 60 60 0 July 16, 2022 12:00am July 30, 2022 9:40am lisinopril 10 mg oral tablet (17 sources) Angiotensin Converting Enzyme Inhibitor Start: 08-26-2022 End: 12-28-2024 take 1 tablet by mouth twice daily Lisinopril 10 mg tablet Discontinued 10 mg PO TWICE A DAY 180 3 August 24, 2023 1:42pm December 28, 2024 9:36am Start: 07-16-2022 End: 08-26-2022 take 1 tablet by mouth twice daily Lisinopril 5 mg Tablet Discontinued 5 mg PO TWICE A DAY 120 60 0 July 16, 2022 12:00am August 26, 2022 2:02pm microencapsulated potassium chloride 20 meq extended release oral tablet (13 sources) Start: 07-16-2022 End: 12-28-2024 take 1 tablet by mouth once daily Potassium Chloride (Klor-Con M20) 20 mEq tablet,ER particles/crystals Discontinued 0 .ROUTE .COMPLEX 90 3 May 11, 2023 11:45am December 28, 2024 9:37am TAKE 1 TABLET BY MOUTH EVERY DAY FOR 60 DAYS Problems Problem Classification Problem Date Documented Da te Episodic/Chronic Acute myocardial infarction (5 sources) Myocardial infarction; Translations: [Non-ST elevation (NSTEMI) myocardial infarction] Onset: 01-06-2025 12-25-2024 Chronic Alcohol-related disorders (7 sources) History of alcohol abuse; Translations: [Alcohol abuse, in remission] 07-16-2022 Chronic Cardiac dysrhythmias (12 sources) Atrial fibrillation; Translations: [Unspecified atrial fibrillation] Onset: 01-05-2025 12-26-2024 Chronic Cardiac dysrhythmias (7 sources) Sinus tachycardia; Translations: [Tachycardia, unspecified] Onset: 01-05-2025 12-24-2024 Episodic Congestive heart failure; nonhypertensive (20 sources) Congestive heart failure; Translations: [Heart failure, unspecified] Onset: 01-06-2025 07-14-2022 Chronic Coronary atherosclerosis and other heart disease (6 sources) Acute coronary syndrome; Translations: [Acute ischemic heart disease, unspecified] 12-24-2024 Chronic Essential hypertension (14 sources) Hypertensive disorder; Translations: [Essential (primary) hypertension] Onset: 01-06-2025 07-16-2022 Chronic Hypertension with complications and secondary hypertension (1 source) Hypertensive heart and chronic kidney disease with heart failure and stage 1 through stage 4 chronic kidney disease, or unspecified chronic kidney disease; Translations: [Hypertensive heart and chronic kidney disease with heart failure and stage 1 through stage 4 chronic kidney disease, or unspecified chronic kidney disease] Onset: 01-06-2025 Chronic Other circulatory disease (7 sources) Elevated blood pressure; Translations: [Elevated blood-pressure reading, without diagnosis of hypertension] 07-14-2022 Episodic Other circulatory disease (2 sources) Elevated blood-pressure reading, without diagnosis of hypertension; Translations: [Elevated blood pressure reading without diagnosis of hypertension] 07-14-2022 Episodic Other lower respiratory disease (1 source) Dyspnea; Translations: [Shortness of breath] Episodic Other nutritional; endocrine; and metabolic disorders (7 sources) Morbid obesity; Translations: [Morbid (severe) obesity due to excess calories] 07-14-2022 Chronic Other nutritional; endocrine; and metabolic disorders (4 sources) Morbid (severe) obesity due to excess calories; Translations: [Morbid obesity] 07-14-2022 Chronic Other nutritional; endocrine; and metabolic disorders (6 sources) Body mass index 30+ - obesity; Translations: [Body mass index (BMI) 38.0-38.9, adult] 12-24-2024 Chronic Fay-; endo-; and myocarditis; cardiomyopathy (except that caused by tuberculosis or sexually transmitted disease) (3 sources) Cardiomyopathy; Translations: [Other cardiomyopathies] Onset: 01-05-2025 01-05-2025 Chronic Residual codes; unclassified (1 source) Peripheral edema; Translations: [Edema, unspecified] Episodic Unclassified (2 sources) Follow-up in 1 to 2 weeks Results Test Name Value Interpretation Reference Range Facility Anion gap in Serum or Plasma Ordered By: Jessika White on 01-05-2025 Anion gap [Moles/Vol] 14 mmol/L 08-25 [facility] BUN/creatinine ratioOrdered By: Jessika White on 01-05-2025 Urea nitrogen/Creatinine [Mass ratio] 20.6 mg/mg High 01-30 [facility] Basic Metabolic Profile (BMP )on 01-05-2025 BUN/CRE 20.6 RATIO [facility] 01-30 [facility] Comment on above: Performed By: #### L 500.2500 #### [facility] [address] [place], [address] Calcium [Mass/Vol] 9.5 mg/dL Normal 7.6-11.0 [facility] Comment on above: Performed By: #### L 500.2500 #### [facility] [address] [place], [address] Chloride [Moles/Vol] 99 mmol/L Normal 98-108 [facility] Comment on above: Performed By: #### L 500.2500 #### [facility] [address] [place], [address] CO2 [Moles/Vol] 23.4 mmol/L Normal 21.0-32.0 [facility] Comment on above: Performed By: #### L 500.2500 #### [facility] [address] [place], [address] Creatinine [Mass/Vol] 1.49 mg/dL High 0.70-1.20 [facility] Comment on above: Performed By: #### L [id number] #### [facility] [address] [place], [address] GAP 14 Normal 5-15 [facility] Comment on above: Performed By: #### L 500.2500 #### [facility] [address] [place], [address] GFR/1.73 sq M.predicted among non-blacks MDRD (S/P/Bld) [Vol rate/Area] 52 mL/min/{1.73_m2} Low >60 [facility] Comment on above: Result Comment: mL/m in/1.73m2 CKD-EPI Creatinine Equation (2020) Performed By: #### L 500.2500 #### [facility] [address] [place], [address] Glucose [Mass/Vol] 99 mg/dL Normal 70-99 [facility] Comment on above: Performed By: #### L 500.2500 #### [facility] [address] [place], [address] Potassium [Moles/Vol] 3.9 mmol/L Normal 3.3-5.1 [facility] Comment on above: Performed By: #### L 500.2500 #### [facility] [address] [place], [address] Sodium [Moles/Vol] 137 mmol/L Normal 133-145 [facility] Comment on above: Performed By: #### L 500.2500 #### [facility] [address] [place], [address] Urea nitrogen [Mass/Vol] 31 mg/dL High - [facility] Comment on above: Performed By: #### L 500.2500 #### [facility] [address] [place], [address] Carbon dioxide, total [Moles /volume] in Central venous bloodOrdered By: Jessika White on 01-05-2025 CO2 [Moles/Vol] 23.4 mmol/L 21.0-32.0 [facility] Cardiology Visit Reporton Cardiology Visit Report [facility] [address] [place], [place] [address] OFFICE VISIT Date of Service: 01/05/25 MR#: [id number] Acct: [id number] Name: SCARLETT LANDRY Rep #: [id number] : 1960 Provider: ESTEFANY baker Age/Sex: 64/M Location: [facility] Status: Signed HPI HPI History of Present Illness Surgical H P: Yes Details: This is a 64-year-old male who presents the office today for a posthospital follow-up. He presented to [facility] on 07/14/2022 for shortness of breath, orthopnea, [...] new medications and discharged for outpatient follow-up. Patient presented to the emergency room on 12/24/2024 with complaints of chest pain. His EKG during that time demonstrated atrial flutter with a 2-1 block and heart rate of 123 bpm. His troponin was elevated at 60, and BNP 7117. He was admitted to the hospital for further evaluation. He did undergo a echocardiogram on 12/24/2024 which demonstrated ejection fraction of 5%, mild biatrial dilation, mild to moderate mitral valve insufficiency, mild tricuspid valve insufficiency with a pulmonary artery systolic pressure of 39 mmHg, and mildly dilated aortic root, measuring 4.1 cm. He did undergo a stress test on 12/26/2024 to rule out ischemia, this was negative for ischemia, and demonstrated a fixed apical defect likely secondary to apical thinning. He was started on Eliquis 5 mg twice daily. He was discharged home on Eliquis 5 mg twice daily, aspirin 81 mg daily, atorvastatin 40 mg daily, furosemide 40 mg twice daily, losartan 50 mg daily, with Toprol tartrate 50 mg twice daily, and spironolactone 25 mg daily. From a cardiac standpoint, the patient is doing well. He does acknowledge occasional chest pain with exertion. This is located midsternal/epigastric area. This is brief. He denies any palpitations, pressure or heaviness. He states he does have SOB with exertion. He denies Orthopnea, and PND. He does not have bleeding issues; no blood in urine, stool, or nosebleeds. He does acknowledge fatigue. He denies myalgias, or claudication. He does not have edema, or sudden weight gain. He denies lightheadedness, dizziness, syncopal or near syncopal episodes, and headaches. Intake Vital Signs 12/25/24 11:02 01/05/25 07:24 Height 5 ft 10 in 5 ft 10 in Weight: 256 lb BMI 36.7 BP 105/68 Blood Pressure Location Lt brachial Position Sitting Respiration 18 Pulse 98 Pulse Source Monitor Pulse Oximetry (%) 100 Intake Visit Reasons: S/P [facility] 12/28 Bottom Painter Required: No Is patient in pain?: No Allergies No Known Allergies Allergy (Verified 01/05/25 10:24) Medications ???Medication ???Instructions ???Recorded ???Confirmed ???Type apixaban 5 mg tablet (Eliquis) 5 mg PO BID 30 days #60 tabs 12/2801/05/25 Rx aspirin 81 mg chewable tablet 81 mg PO BREAKFAST 30 days #30 tab s 12/28/24 01/05/25 Rx atorvastatin 40 mg tablet 40 mg PO QHS 30 days #30 tabs 12/1201/05/25 Rx furosemide 40 mg tablet (Lasix) 40 mg PO BID 30 days #60 tabs 12/1201/05/25 Rx losartan 50 mg tablet 50 mg PO DAILY 30 days #30 tabs 01/05/25 Rx metoprolol tartrate 50 mg tablet 50 mg PO BID 30 days #60 tabs 12/1201/05/25 Rx spironolactone 25 mg tablet 25 mg PO DAILY 30 days #30 tabs 01/05/25 Rx amiodarone 200 mg tablet See Rx Instructions PO .COMPLEX 01/05/25 Rx #70 tabs Ejection fraction %: 50 Have you fallen in the past year?: No [facility] Medical History (Updated 01/05/25 @ 10:53 by Jessika White NP, OPERATIONS RESEARCH MANAGER-C) A-fib NSTEMI (non-ST elevated myocardial infarction) Atrial flutter with rapid ventricular response Essential hypertension History of ETOH abuse Elevated blood pressure reading Family History Other COPD (chronic obstructive pulmonary disease) Heart disease Social History household members: spouse Smoking Status: Former smoker how long ago did patient quit smokin years ago alcohol intake: never substance use type: marijuana caffeine: No (None in the last couple of weeks) ROS Const Const: Positive for fatigue; Negative for weakness, headache(s) or frequent falls Eyes Eyes: Negative for bl (more content not included)... Normal [facility] Chloride assayOrdered By: Jeet White on 01-05-2025 Chloride [Moles/Vol] 99 mmol/L 98-108 [facility] Glomerular filtration rate ( GFR) estimation/1.73 sq m using serum, plasma, or whole bOrdered By: Jessika White on 01-05-2025 GFR/1.73 sq M.predicted among non-blacks MDRD (S/P/Bld) [Vol rate/Area] 52 mL/min/{1.73_m2} Low >60 [facility] Comment on above: mL/min/1.73m2 CKD-EP I Creatinine Equation (2020) Potassium measurement (mass/ volume)Ordered By: Jessika White on 01-05-2025 Potassium (Unsp spec) [Mass/Vol] 3.9 mmol/L 3.3-5.1 [facility] Serum creatinine measurement (mass/volume)Ordered By: Jessika White on 01-05-2025 Creatinine [Mass/Vol] 1.49 mg/dL High 0.70-1.20 [facility] Serum glucose measurement (m ass/volume)Ordered By: Jessika White on 01-05-2025 Glucose [Mass/Vol] 99 mg/dL 70-99 [facility] Serum or plasma calcium stcaie urement (mass/volume)Ordered By: Jessika White on 01-05-2025 Calcium [Mass/Vol] 9.5 mg/dL 7.6-11.0 [facility] Serum or plasma urea nitroge n measurement (mass/volume)Ordered By: Jessika White on 01-05-2025 Urea nitrogen [Mass/Vol] 31 mg/dL High 4-19 [facility] Sodium levelOrdered By: Jazmine White on 01-05-2025 Sodium [Moles/Vol] 137 mmol/L 133-145 [facility] Anion gap in Serum or Plasma Ordered By: Joseph Johnson on 12-28-2024 Anion gap [Moles/Vol] 14 mmol/L 5-15 [facility] BUN/creatinine ratioOrdered By: Joseph Johnson on 12-28-2024 Urea nitrogen/Creatinine [Mass ratio] 24.1 mg/mg High 10-20 [facility] Basic Metabolic Profile (BMP )on 12-28-2024 BUN/CRE 24.1 RATIO High 10-20 [facility] Comment on above: Performed By: #### L 500.2500 #### [facility] [address] [place], [address] Calcium [Mass/Vol] 9.9 mg/dL Normal 7.6-11.0 [facility] Comment on above: Performed By: #### L 500.2500 #### [facility] [address] [place], [address] Chloride [Moles/Vol] 100 mmol/L Normal 98-108 [facility] Comment on above: Performed By: #### L 500.2500 #### [facility] [address] [place], [address] CO2 [Moles/Vol] 25.9 mmol/L Normal 21.0-32.0 [facility] Comment on above: Performed By: #### L 500.2500 #### [facility] [address] [place], [address] Creatinine [Mass/Vol] 1.29 mg/dL High 0.70-1.20 [facility] Comment on above: Performed By: #### L 500.2500 #### [facility] [address] [place], [address] ECRCL 75.91 ml/min Normal 50-250 [facility] Comment on above: Performed By: #### L 500.2500 #### [facility] [address] [place], [address] GAP 14 Normal 5-15 [facility] Comment on above: Performed By: #### L 500.2500 #### [facility] [address] [place], [address] GFR/1.73 sq M.predicted among non-blacks MDRD (S/P/Bld) [Vol rate/Area] 62 mL/min/{1.73_m2} Normal >60 [facility] Comment on above: Result Comment: mL/m in/1.73m2 CKD-EPI Creatinine Equation (2020) Performed By: #### L 500.2500 #### [facility] [address] [place], [address] Glucose [Mass/Vol] 95 mg/dL Normal 70-99 [facility] Comment on above: Performed By: #### L 500.2500 #### [facility] [address] [place], [address] Potassium [Moles/Vol] 4.4 mmol/L Normal 3.3-5.1 [facility] Comment on above: Performed By: #### L 500.2500 #### [facility] [address] [place], [address] Sodium [Moles/Vol] 139 mmol/L Normal 133-145 [facility] Comment on above: Performed By: #### L 500.2500 #### [facility] [address] [place], [address] Urea nitrogen [Mass/Vol] 31 mg/dL High 4-19 [facility] Comment on above: Performed By: #### L 500.2500 #### [facility] [address] [place], [address] Carbon dioxide, total [Moles /volume] in Central venous bloodOrdered By: Joseph Johnson on 12-28-2024 CO2 [Moles/Vol] 25.9 mmol/L 21.0-32.0 [facility] Chloride assayOrdered By: Johanna Johnson on 12-28-2024 Chloride [Moles/Vol] 100 mmol/L 98-108 [facility] Discharge Instructionon 12-12 Discharge Instruction [facility] Medical Records Department [address] [place] [address] Instructions for Home/Discharge Instructions 12/28/24 0929 MR#: [id number] Acct: [id number] Name: SCARLETT LANDRY Rep #: [id number] : 1960 64 From: Baudilio Castellanos MD PCP: Sarah Physician,Katie Primary Status:ADM IN Discharge Instructions DC O2, CPAP, BIPAP needs Home O2 Discharge instructions: No Dressing / Incision Discharge Activity: Return to Normal Activity Weight Bearing Status: Weight bearing as tolerated Dressing / Incision Call your doctor if you observe: Fever of 101 or Higher, Coldness, Increased Pain, Numbness or Tingling, Change in Color, Inability to urinate, Inability to have a bowel movement, Shortness of breath, Dizziness, Fainting spells, Swelling in the ankles, Chest pain, Prolonged hiccupping, Increased palpitations (irregular heartbeat) and Calf discomfort Follow Up Care When: IN 2 WEEKS Test Results: Test results from this visit will be discussed in further detail at your follow-up appointment, if applicable. Discharge Plan Admission Admit Date/Time: 12/24/24 19:31 Attending Provider: Baudilio Castellanos Primary Care Provider: Sarah Physician,No Primary Consulting Providers: Abhi Chong Discharge Orders/Prescriptions Prescriptions: New losartan 50 mg Tablet 50 mg PO DAILY 30 Days Qty: 30 2RF atorvastatin 40 mg Tablet 40 mg PO QHS 30 Days Qty: 30 2RF spironolactone 25 mg Tablet 25 mg PO DAILY 30 Days Qty: 30 2RF Rx Instructions: Hold for serum potassium more than 5.0 metoprolol tartrate 50 mg Tablet 50 mg PO BID 30 Days Qty: 60 2RF aspirin 81 mg Tablet,Chewable 81 mg PO BREAKFAST 30 Days Qty: 30 2RF Eliquis 5 mg Tablet 5 mg PO BID 30 Days Qty: 60 2RF Changed furosemide [Lasix] 40 mg tablet 40 mg PO BID 30 Days Qty: 60 3RF Discontinued potassium chloride [Klor-Con M20] 20 mEq tablet,ER particles/crystals See Rx Instructions .ROUTE .COMPLEX Qty: 90 3RF Dose Instruction: TAKE 1 TABLET BY MOUTH EVERY DAY FOR 60 DAYS Rx Instructions: TAKE 1 TABLET BY MOUTH EVERY DAY FOR 60 DAYS lisinopril 10 mg tablet 10 mg PO BID Qty: 180 3RF carvedilol 6.25 mg tablet 6.25 mg PO BID Qty: 180 3RF Referrals / Follow Up: Care Physician,No Primary [Primary Care Provider] Joseph Johnson MD [Med Staff - Active Staff, Cardiology] - Within 2 Weeks Referral Note: Follow-up in 1 to 2 weeks Disposition Disposition (needs filled in before D/C Order can be placed): Home, Self Care 12/28/24 0939 Baudilio Castellanos MD CC: Dr. Abhi Chong, DO; No Primary Care Physician Signed Normal [facility] Glomerular filtration rate ( GFR) estimation/1.73 sq m using serum, plasma, or whole bOrdered By: Joseph Johnson on 12-28-2024 GFR/1.73 sq M.predicted among non-blacks MDRD (S/P/Bld) [Vol rate/Area] 62 mL/min/{1.73_m2} >60 [facility] Comment on above: mL/min/1.73m2 CKD-EP I Creatinine Equation (2020) Natriuretic peptide.B prohor shilpi N-Terminal [Mass/volume] in Serum or PlasmaOrdered By: Joseph Johnson on 12-28-2024 Natriuretic peptide.B prohormone N-Terminal [Mass/Vol] 4743 pg/mL High <900 [facility] Comment on above: Heart Failure Unlike ly: < 300 pg/mLHeart Failure Likely< 50 Years: > 450 pg/mL50-75 Years: > 900 pg/mL>75 Years: > 1800 pg/mL Potassium measurement (mass/ volume)Ordered By: Joseph Johnson on 12-28-2024 Potassium (Unsp spec) [Mass/Vol] 4.4 mmol/L 3.3-5.1 [facility] Pro- Brain NATRIURETIC PEPTI Paulino 12-28-2024 Natriuretic peptide B (Bld) [Mass/Vol] 4743 pg/mL High <=900 [facility] Comment on above: Result Comment: Hear t Failure Unlikely: < 300 pg/mL Heart Failure Likely < 50 Years: > 450 pg/mL 50-75 Years: > 900 pg/mL >75 Years: > 1800 pg/mL Performed By: #### L 500.2500 #### [facility] Laboratory [facility] [place], [address] Serum creatinine measurement (mass/volume)Ordered By: Joseph Johnson on 12-28-2024 Creatinine [Mass/Vol] 1.29 mg/dL High 0.70-1.20 [facility] Serum glucose measurement (m ass/volume)Ordered By: Joseph Johnson on 12-28-2024 Glucose [Mass/Vol] 95 mg/dL 70-99 [facility] Serum or plasma calcium stacie urement (mass/volume)Ordered By: Joseph Johnson on 12-28-2024 Calcium [Mass/Vol] 9.9 mg/dL 7.6-11.0 [facility] Serum or plasma urea nitroge n measurement (mass/volume)Ordered By: Joseph Johnson on 12-28-2024 Urea nitrogen [Mass/Vol] 31 mg/dL High 4-19 [facility] Sodium levelOrdered By: Napoleon Johnson on 12-28-2024 Sodium [Moles/Vol] 139 mmol/L 133-145 [facility] Absolute lymphocyte countOrd ered By: Baudilio Castellanos on 12-27-2024 Lymphocytes Auto (Unsp spec) [#/Vol] 2.26 10*3/uL 0.83-4.51 [facility] Absolute neutrophil countOrd ered By: Baudilio Castellanos on 12-27-2024 Neutrophils (Bld) [#/Vol] 5.8 10*3/uL 2.0-7.7 [facility] Automated lymphocyte count a s percentage of total leukocytesOrdered By: Baudilio Castellanos on 12-27-2024 Lymphocytes/100 WBC Auto (Unsp spec) 23.6 % 19-41 [facility] Basic Metabolic Profile (BMP )on 12-27-2024 BUN/CRE 22.4 RATIO High 10-20 [facility] Comment on above: Performed By: #### L 100.0100, L500.2500 #### [facility] [address] [place], [address] Calcium [Mass/Vol] 9.7 mg/dL Normal 7.6-11.0 [facility] Comment on above: Performed By: #### L 100.0100, L500.2500 #### [facility] [address] [place], [address] Chloride [Moles/Vol] 101 mmol/L Normal 98-108 [facility] Comment on above: Performed By: #### L 100.0100, L500.2500 #### [facility] [address] [place], [address] CO2 [Moles/Vol] 28.7 mmol/L Normal 21.0-32.0 [facility] Comment on above: Performed By: #### L 100.0100, L500.2500 #### [facility] [address] [place], [address] Creatinine [Mass/Vol] 1.37 mg/dL High 0.70-1.20 [facility] Comment on above: Performed By: #### L 100.0100, L500.2500 #### [facility] [address] [place], [address] ECRCL 71.47 ml/min Normal 50-250 [facility] Comment on above: Performed By: #### L 100.0100, L500.2500 #### [facility] [address] [place], [address] GAP 12 Normal 5-15 [facility] Comment on above: Performed By: #### L 100.0100, L500.2500 #### [facility] [address] [place], [address] GFR/1.73 sq M.predicted among non-blacks MDRD (S/P/Bld) [Vol rate/Area] 58 mL/min/{1.73_m2} Low >60 [facility] Comment on above: Result Comment: mL/m in/1.73m2 CKD-EPI Creatinine Equation (2020) Performed By: #### L 100.0100, L500.2500 #### [facility] [address] [place], [address] Glucose [Mass/Vol] 99 mg/dL Normal 70-99 [facility] Comment on above: Performed By: #### L 100.0100, L500.2500 #### [facility] [address] [place], [address] Potassium [Moles/Vol] 4.1 mmol/L Normal 3.3-5.1 [facility] Comment on above: Performed By: #### L 100.0100, L500.2500 #### [facility] [address] [place], [address] Sodium [Moles/Vol] 141 mmol/L Normal 133-145 [facility] Comment on above: Performed By: #### L 100.0100, L500.2500 #### [facility] [address] [place], [address] Urea nitrogen [Mass/Vol] 31 mg/dL High 4-19 [facility] Comment on above: Performed By: #### L 100.0100, L500.2500 #### [facility] [address] [place], [address] Basophil percentageOrdered B y: Baudiliodelgado Castellanos on 12-27-2024 Basophils/100 WBC (Bld) 0.3 % 0-1 [facility] CBC W/Diff, Automatedon 12-12 Absolute Lymph 2.26 X10 3/uL Normal 0.83-4.51 [facility] Comment on above: Performed By: #### L 100.0100, L500.2500 #### [facility] [address] [place], [address] Absolute Neut 5.8 X10 3/uL Normal 2.0-7.7 [facility] Comment on above: Performed By: #### L 100.0100, L500.2500 #### [facility] [address] [place], [address] Basophils/100 WBC (Bld) 0.3 % Normal 0-1 [facility] Comment on above: Performed By: #### L 100.0100, L500.2500 #### [facility] [address] [place], [address] Eosinophils/100 WBC (Bld) 2.3 % Normal 0-5 [facility] Comment on above: Performed By: #### L 100.0100, L500.2500 #### [facility] [address] [place], [address] Erythrocyte distribution width (RBC) [Ratio] 14.3 % Normal 11.6-14.6 [facility] Comment on above: Performed By: #### L 100.0100, L500.2500 #### [facility] [address] [place], [address] Hematocrit (Bld) [Volume fraction] 45.0 % Normal 40-54 [facility] Comment on above: Performed By: #### L 100.0100, L500.2500 #### [facility] [address] [place] [place], [address] Hemoglobin (Bld) [Mass/Vol] 14.2 g/dL Normal 13.0-16.5 [facility] Comment on above: Performed By: #### L 100.0100, L500.2500 #### [facility] [address] [place], [address] IG% 0.400 Normal 0.0-0.9 [facility] Comment on above: Result Comment: IG% - Immature Granulocytes (promyelocytes, myelocytes and metamyelocytes) > 1% indicates that a LEFT SHIFT is Present. Performed By: #### L 100.0100, L500.2500 #### [facility] [address] [place], [address] Lymphocytes/100 WBC (Bld) 23.6 % Normal 19-41 [facility] Comment on above: Performed By: #### L 100.0100, L500.2500 #### [facility] [address] [place], [address] MCH (RBC) [Entitic mass] 30.2 pg Normal 27.0-32.0 [facility] Comment on above: Performed By: #### L 100.0100, L500.2500 #### [facility] [address] [place], [address] MCHC (RBC) [Mass/Vol] 31.6 g/dL Low 32-36 [facility] Comment on above: Performed By: #### L 100.0100, L500.2500 #### [facility] [address] [place], [address] MCV (RBC) [Entitic vol] 95.7 fL High 80-94 [facility] Comment on above: Performed By: #### L 100.0100, L500.2500 #### [facility] [address] [place], [address] Monocytes/100 WBC (Bld) 12.7 % High 0-10 [facility] Comment on above: Performed By: #### L 100.0100, L500.2500 #### [facility] [address] [place], [address] Neutrophils/100 WBC (Bld) 60.7 % Normal 47-70 [facility] Comment on above: Performed By: #### L 100.0100, L500.2500 #### [facility] [address] [place], [address] Nucleated RBC (Bld) [#/Vol] 0 10*3/uL Normal 0-5 [facility] Comment on above: Performed By: #### L 100.0100, L500.2500 #### [facility] [address] [place], [address] Platelet mean volume (Bld) [Entitic vol] 11.0 fL Normal 6.2-12.0 [facility] Comment on above: Performed By: #### L 100.0100, L500.2500 #### [facility] [address] [place], [address] Platelets (Bld) [#/Vol] 231 10*3/uL Normal 150-450 [facility] Comment on above: Performed By: #### L 100.0100, L500.2500 #### [facility] [address] [place], [address] RBC (Bld) [#/Vol] 4.70 10*6/uL Normal 4.6-6.2 [facility] Comment on above: Performed By: #### L 100.0100, L500.2500 #### [facility] [address] [place], [address] RDW SD 50.0 fl High 35.1-43.9 [facility] Comment on above: Performed By: #### L 100.0100, L500.2500 #### [facility] [address] [place], [address] WBC (Bld) [#/Vol] 9.6 10*3/uL Normal 4.4-11.0 [facility] Comment on above: Performed By: #### L 100.0100, L500.2500 #### [facility] [address] [place], [address] Eosinophil percentageOrdered By: Baudilio Castellanos on 12-27-2024 Eosinophils/100 WBC (Bld) 2.3 % 0-5 [facility] Erythrocyte distribution wid th ratioOrdered By: Baudilio Castellanos on 12-27-2024 Erythrocyte distribution width (RBC) [Ratio] 14.3 % 11.6-14.6 [facility] Erythrocyte distribution wid th standard deviationOrdered By: Baudilio Castellanos on 12-27-2024 Erythrocyte distribution width (RBC) [Ratio] 50.0 fl High 35.1-43.9 [facility] Hematocrit Auto (Bld) [Volum e fraction]Ordered By: Baudilio Castellanos on 12-27-2024 Hematocrit (Bld) [Volume fraction] 45.0 % 40-54 [facility] Hemoglobin measurementOrdere d By: Baudilio Castellanos on 12-27-2024 Hemoglobin (Bld) [Mass/Vol] 14.2 g/dL 13.0-16.5 [facility] Immature granulocytes/100 WB C Auto (Bld)Ordered By: Baudilio Castellanos on 12-27-2024 Immature granulocytes/100 WBC (Bld) 0.400 % 0.0-0.9 [facility] Comment on above: IG% - Immature Granu locytes (promyelocytes, myelocytes and metamyelocytes) > 1% indicates that a LEFT SHIFT is Present. MCV (mean corpuscular volume ) determinationOrdered By: Baudilio Castellanos on 12-27-2024 MCV (RBC) [Entitic vol] 95.7 fL High 80-94 [facility] Mean corpuscular hemoglobin (MCH) determinationOrdered By: Baudilio Castellanos on 12-27-2024 MCH (RBC) [Entitic mass] 30.2 pg 27.0-32.0 [facility] Mean corpuscular hemoglobin concentration (MCHC) determinationOrdered By: Baudilio Castellanos on 12-27-2024 MCHC (RBC) [Mass/Vol] 31.6 g/dL Low 32-36 [facility] Mean platelet volume determi nationOrdered By: Baudilio Castellanos on 12-27-2024 Platelet mean volume (Bld) [Entitic vol] 11.0 fL 6.2-12.0 [facility] Monocyte percentageOrdered B y: Baudilio Castellanos on 12-27-2024 Monocytes/100 WBC (Bld) 12.7 % High 0-10 [facility] Neutrophil percentageOrdered By: Baudilio Castellanos on 12-27-2024 Neutrophils/100 WBC (Bld) 60.7 % 47-70 [facility] Nucleated red blood cell per centageOrdered By: Baudilio Castellanos on 12-27-2024 Nucleated RBC/100 WBC (Bld) [Ratio] 0 % 0-5 [facility] Platelet countOrdered By: Joey Castellanos on 12-27-2024 Platelets (Bld) [#/Vol] 231 10*3/uL 150-450 [facility] RBC Auto (Bld) [#/Vol]Ordere d By: Baudilio Castellanos on 12-27-2024 RBC (Bld) [#/Vol] 4.70 10*6/uL 4.6-6.2 [facility] White blood cell (WBC) count Ordered By: Baudilio Castellanos on 12-27-2024 WBC (Bld) [#/Vol] 9.6 10*3/uL 4.4-11.0 [facility] 12 Lead EKGon 12-26-2024 12 Lead EKG [facility] Cardiovascular Services [address] [place] [address] 12 Lead EKG 12/26/24 0526 MR#: [id number] Acct: [id number] Name: SCARLETT LANDRY Rep #: [id number] : 1960 64 From: Joseph Johnson MD Attending Dr: Dr. Baudilio Castellanos MD Status: ADM IN Ordering Dr: Abhi Chong DO Date: 12/26/24 Location: [facility] Sex: M C Admitted: 12/24/24 Test Reason : AM EKG Blood Pressure : */* mmHG Vent. Rate : 106 BPM Atrial Rate : * BPM P-R Int : * ms QRS Dur : 152 ms QT Int : 342 ms P-R-T Axes : * 31 177 degrees QTcB Int : 454 ms Atrial fibrillation with rapid ventricular response Left bundle branch block Abnormal ECG When compared with ECG of 24-Dec-2024 22:29, MANUAL COMPARISON REQUIRED DATA IS UNCONFIRMED Confirmed by Joseph Johnson ([id number]), fan mail editor JUAN TOSCANO ([id number]) on 12/26/2024 1:27:43 PM Referred By: Confirmed By: Joseph Johnson 12/26/24 1327 Date Joseph Johnson MD CC: Dr. Abhi Chong DO; Dr. Baudilio Castellanos MD; No Primary Care Physician Signed Normal [facility] Activated partial thrombopla stin time (aPTT) in platelet poor plasma by coagulation aOrdered By: Abhi Chong on 12-26-2024 aPTT Coag (PPP) [Time] 56.2 s High 24.1-36.2 [facility] Basic Metabolic Profile (BMP )on 12-26-2024 BUN/CRE 21.2 RATIO High 10-20 [facility] Comment on above: Performed By: #### L 499.0042 #### [facility] [address] [place], [address] Calcium [Mass/Vol] 9.6 mg/dL Normal 7.6-11.0 [facility] Comment on above: Performed By: #### L 499.0042 #### [facility] [address] [place], [address] Chloride [Moles/Vol] 103 mmol/L Normal 98-108 [facility] Comment on above: Performed By: #### L 499.0042 #### [facility] [address] [place], [address] CO2 [Moles/Vol] 22.2 mmol/L Normal 21.0-32.0 [facility] Comment on above: Performed By: #### L 499.0042 #### [facility] [address] [place], [address] Creatinine [Mass/Vol] 1.35 mg/dL High 0.70-1.20 [facility] Comment on above: Performed By: #### L 499.0042 #### [facility] [address] [place], [address] ECRCL 73.01 ml/min Normal 50-250 [facility] Comment on above: Performed By: #### L 499.0042 #### [facility] [address] [place], [address] GAP 13 Normal 5-15 [facility] Comment on above: Performed By: #### L 499.0042 #### [facility] [address] [place], [address] GFR/1.73 sq M.predicted among non-blacks MDRD (S/P/Bld) [Vol rate/Area] 59 mL/min/{1.73_m2} Low >60 [facility] Comment on above: Result Comment: mL/m in/1.73m2 CKD-EPI Creatinine Equation (2020) Performed By: #### L 499.0042 #### [facility] [address] [place], [address] Glucose [Mass/Vol] 110 mg/dL High 70-99 [facility] Comment on above: Performed By: #### L 499.0042 #### [facility] [address] [place], [address] Potassium [Moles/Vol] 3.9 mmol/L Normal 3.3-5.1 [facility] Comment on above: Performed By: #### L 499.0042 #### [facility] [address] [place], [address] Sodium [Moles/Vol] 138 mmol/L Normal 133-145 [facility] Comment on above: Performed By: #### L 499.0042 #### [facility] [address] [place], [address] Urea nitrogen [Mass/Vol] 29 mg/dL High 4-19 [facility] Comment on above: Performed By: #### L 499.0042 #### [facility] [address] [place], [address] CBC W/Diff, Automatedon 12-12 Absolute Lymph 2.96 X10 3/uL Normal 0.83-4.51 [facility] Comment on above: Performed By: #### L 499.0042 #### [facility] [address] [place], [address] Absolute Neut 5.2 X10 3/uL Normal 2.0-7.7 [facility] Comment on above: Performed By: #### L 499.0042 #### [facility] [address] [place], [address] Basophils/100 WBC (Bld) 0.3 % Normal 0-1 [facility] Comment on above: Performed By: #### L 499.0042 #### [facility] [address] [place], [address] Eosinophils/100 WBC (Bld) 1.3 % Normal 0-5 [facility] Comment on above: Performed By: #### L 499.0042 #### [facility] [address] [place], [address] Erythrocyte distribution width (RBC) [Ratio] 14.3 % Normal 11.6-14.6 [facility] Comment on above: Performed By: #### L 499.0042 #### [facility] [address] [place], [address] Hematocrit (Bld) [Volume fraction] 46.1 % Normal 40-54 [facility] Comment on above: Performed By: #### L 499.0042 #### [facility] [address] [place], [address] Hemoglobin (Bld) [Mass/Vol] 15.0 g/dL Normal 13.0-16.5 [facility] Comment on above: Performed By: #### L 499.0042 #### [facility] [address] [place], [address] IG% 0.300 Normal 0.0-0.9 [facility] Comment on above: Result Comment: IG% - Immature Granulocytes (promyelocytes, myelocytes and metamyelocytes) > 1% indicates that a LEFT SHIFT is Present. Performed By: #### L 499.0042 #### [facility] [address] [place], [address] Lymphocytes/100 WBC (Bld) 31.8 % Normal 19-41 [facility] Comment on above: Performed By: #### L 499.0042 #### [facility] [address] [place], [address] MCH (RBC) [Entitic mass] 30.7 pg Normal 27.0-32.0 [facility] Comment on above: Performed By: #### L 499.0042 #### [facility] [address] [place], [address] MCHC (RBC) [Mass/Vol] 32.5 g/dL Normal 32-36 [facility] Comment on above: Performed By: #### L 499.0042 #### [facility] [address] [place], [address] MCV (RBC) [Entitic vol] 94.5 fL High 80-94 [facility] Comment on above: Performed By: #### L 499.0042 #### [facility] [address] [place], [address] Monocytes/100 WBC (Bld) 10.5 % High 0-10 [facility] Comment on above: Performed By: #### L 499.0042 #### [facility] [address] [place], [address] Neutrophils/100 WBC (Bld) 55.8 % Normal 47-70 [facility] Comment on above: Performed By: #### L 499.0042 #### [facility] [address] [place], [address] Nucleated RBC (Bld) [#/Vol] 0 10*3/uL Normal 0-5 [facility] Comment on above: Performed By: #### L 499.0042 #### [facility] [address] [place], [address] Platelet mean volume (Bld) [Entitic vol] 10.7 fL Normal 6.2-12.0 [facility] Comment on above: Performed By: #### L 499.0042 #### [facility] [address] [place], [address] Platelets (Bld) [#/Vol] 206 10*3/uL Normal 150-450 [facility] Comment on above: Performed By: #### L 499.0042 #### [facility] [address] [place], [address] RBC (Bld) [#/Vol] 4.88 10*6/uL Normal 4.6-6.2 [facility] Comment on above: Performed By: #### L 499.0042 #### [facility] [address] [place], [address] RDW SD 49.0 fl High 35.1-43.9 [facility] Comment on above: Performed By: #### L 499.0042 #### [facility] [address] [place], [address] WBC (Bld) [#/Vol] 9.3 10*3/uL Normal 4.4-11.0 [facility] Comment on above: Performed By: #### L 499.0042 #### [facility] [address] [place], [address] Calculated very low density lipoprotein (VLDL) cholesterol measurementOrdered By: Baudilio Castellanos on 12-26-2024 Calculated very low density lipoprotein (VLDL) cholesterol measurement 14 mg/dL 5-40 [facility] Cardiovascular stress test r eportOrdered By: Tim Miller on 12-26-2024 Study report [facility] Services [address] [place] [address] MR#: [id number] Acct: [id number] Name: SCARLETT LANDRY Rep #: [id number] : 1960 64 From: Tim Miller MD Primary Care: Care Physician,No Primary Status: ADM IN Referring Dr: Sex: Bruce Hernandez Stress Test Report Date: 12/26/2024 Procedure: Pharmacologic stress nuclear imaging study Indications: Chest pain Consent: Per the patient Procedure: The patient underwent pharmacologic (Regadenoson 0.4mg ) evaluation with a peak heart rate of 118 beats per minute (75%predicted maximal heart rate) and a peak blood pressure of 120/90 mmHg. The baseline ECG demonstrated atrial fibrillation with left bundle branch block. The peak pharmacologic ECG was nondiagnostic secondary to baseline abnormalities. Occasional PVCs noted. There was no complaint of chest discomfort during pharmacologic infusion or recovery. The patient was injected with 14.8 millicuries of technetium 99m Cardiolite and subsequently rest SPECT Cardiolite nuclear imaging was obtained in the horizontal long, vertical long, and short axis views. The patient underwent pharmacologic (Regadenoson) evaluation. The patient was injected with 45.0 millicuries of technetium 99m Cardiolite and subsequently stress SPECT Cardiolite nuclear imaging was obtained in the horizontal long, vertical long, and short axis views. A gated Cardiolite study at peak stress was obtained. The examination was stopped secondary to completion of protocol. Rest and stress SPECT Cardiolite nuclear imaging status post realignment, normalization, and attenuation correction demonstrate mildly dilated left ventricular cavity. Mild fixed apical defect suggestive of apical thinning. Noreversible perfusion defects. Gated studies revealed severe generalized hypokinesis. The reported LVEF is 20%. Impression: 1. Pharmacologic (Regadenoson) evaluation 2. Peak pharmacologic ECG nondiagnostic secondary to baseline abnormalities. 3. Occasional PVCs noted. 5. No reversible perfusion defects. Fixed apical defect likely secondary to apical thinning. 6. The gated Cardiolite study reports an LVEF of 20%. This note was generated with The RealReal[employer] software. It may contain incorrectwords, spelling, and punctuation that were not noted in checking the note beforesigning. 12/26/24 1206 Date _ Tim Miller MD CC: Dr. Patric Colmenares MD; Dr. Abhi Chong DO; Dr. Baudilio Castellanos MD; Dr. Yuniel Hoffman MD; No Primary Care Physician ~ Date Dictated: 12/26/24 1203 Date Transcribed: 12/26/241202 Wastewater Design Engineer: RASHIDA Salazar [facility] Work Phone: Echocardiogram study reportO rdered By: Tim Miller on 12-26-2024 Study report [facility] Cardiovascular Services [address] [place] [address] Echo Complete W/ Contrast 12/26/24 0735 MR#: [id number] Acct: [id number] Name: SCARLETT LANDRY Rep #:[id number] : 1960 64 From: Tim Miller MD Attending Dr: Dr. Baudilio Castellanos MD Status: ADM IN Ordering Dr: Abhi Chong te: 12/24/24 Location: U Sex: M C Admitted: 12/24/24 Reason For Study Reason For Study: CHF Procedure This was a 2D Doppler, Color Flow transthoracic echocardiogram. The study was technically difficult. Exam performed portable in patient room. Left Ventricle Moderately dilated left ventricle. Severe global LV systolic dysfunction. Estimated LVEF 5%. Stage I diastolic dysfunction. Right Ventricle Normal RV size. Mild global right ventricular systolic dysfunction. Atria There is mild biatrial dilatation. Mitral Valve The mitral valve is structurally normal. No prolapse or stenosis seen. Mild-Moderate (1-2+) mitral valve insufficiency. Tricuspid Valve Normal tricuspid valve. Mild (1+) tricuspid valve insufficiency. Pulmonary artery systolic pressure is 39 mmHg. Aortic Valve Trisinus/trileaflet aortic valve. Mild focal aortic valve thickening. Trivial aortic valve insufficiency. Pulmonic Valve Normal pulmonic valve. Mild-Moderate (1-2+) pulmonic valve insufficiency. Great Vessels Mildly dilated aortic root. The inferior vena cava is dilated. No collapse of the inferior vena cava. Pericardium/Pleural Trivial pericardial effusion. Medication Diluted definity 1.0ml given slow IV push to enhance endocardial definition. MMode/2D Measurements & Calculations LVIDd: 6.4 cm IVSd: 1.1 cm Ao root diam: 4.1 cm LVIDs: 5.5 cm LVPWd: 0.98 cm RVDd: 3.9 cm FS: 14.3 % LAV(MOD-bp): 68.7 ml LVAd ap4: 49.6 cm2 LVAd ap2: 46.1 cm2 LAV(MOD-bp) Indexed: 29.0 ml/m2 LVLd ap4: 9.1 cm LVLd ap2: 9.3 cm LAV(MOD-sp2): 65.5 ml EDV(MOD-sp4): 220.9 ml EDV(MOD-sp2): 188.1 ml LAV(MOD-sp4): 72.4 ml EDV(sp4-el): 229.3 ml EDV(sp2-el): 193.3 ml LVAs ap4: 46.8 cm2 LVAs ap2: 42.8 cm2 LVLs ap4: 9.1 cm LVLs ap2: 9.0 cm ESV(MOD-sp4): 198.8 ml ESV(MOD-sp2): 165.7 ml ESV(sp4-el): 204.5 ml ESV(sp2-el): 172.8 ml EF(MOD-sp4): 10.0 % EF(MOD-sp2): 11.9 % EF(sp4-el): 10.8 % SV(MOD-sp4): 22.1 ml SV(MOD-sp2): 22.4 ml SV(sp4-el): 24.7 ml SI(MOD-sp4): 9.3 ml/m2 SI(MOD-sp2): 9.5 ml/m2 LA A4 area: 25.0 cm2 LA dimension(2D): 3.9 cm RA A4 area: 23.5 cm2 Doppler Measurements & Calculations MV E max al: 92.9 cm/sec Ao V2 max: 97.9 cm/sec LV V1 max: 78.9 cm/sec Ao max P.1 mmHg LV V1 max P.7 mmHg PA V2 max: 68.4 cm/sec PI end-d al: 172.9 cm/sec TR max al: 243.6 cm/sec TR max P.9 mmHg ECHO/Echo Complete W/ Contrast Interpretation Summary Moderately dilated left ventricle. Severe global LV systolic dysfunction. Estimated LVEF 5%. Stage I diastolic dysfunction. Mild global right ventricular systolic dysfunction. There is mild biatrial dilatation. Mild-Moderate (1-2+) mitral valve insufficiency. Mild (1+) tricuspid valve insufficiency. Mildly dilated aortic root. The study was technically difficult. Contrast injection was performed. Ordering Physician: Abhi Chong Performed By: Kathy Guzman RDCS 12/26/24956 Date _ Tim Miller MD CC: Dr. Abhi Chong DO; Dr. Baudilio Castellanos MD; No Primary Care Physician ~ Date Dictated: 12/26/24734 Date Transcribed: 12/26/24956 Wastewater Design Engineer: Signed [facility] Work Phone: Electrocardiogram reportOrde red By: Joseph Johnson on 12-26-2024 EKG study [facility] Cardiovascular Services [address] [place] [address] 12 Lead EKG 12/24/242228 MR#: [id number] Acct: [id number] Name: SCARLETT LANDRY Rep #:[id number] : 1960 64 From: Joseph valiente MD Attending Dr: Dr. Baudilio Castellanos MD Status: ADM IN Ordering Dr: Abhi Chong DO Da te: 12/24/24 Location: [facility] Sex: M C Admitted: 12/24/24 Test Reason : NSTEMI Blood Pressure : */* mmHG Vent. Rate : 93 BPM Atrial Rate : 242 BPM P-R Int : * ms QRS Dur : 158 ms QT Int : 398 ms P-R-T Axes : 88 33 216 degrees QTcB Int : 494 ms Atrial flutter with variable A-V block Left bundle branch block Abnormal ECG When compared with ECG of 24-Dec-2024 16:49, MANUAL COMPARISON REQUIRED DATA IS UNCONFIRMED Confirmed by Joseph Johnson ([id number]), fan mail editor JUAN TOSCANO ([id number]) on 12/26/2024 1:28:39 PM Referred By: Confirmed By: Joseph Johnson 12/26/24 1328 Date _ Joseph Johnson MD CC: Dr. Abhi Chong DO; Dr. Baudilio Castellanos MD; No Primary Care Physician ~ Signed [facility] Work Phone: EKG study [facility] Cardiovascular Services [address] [place] [address] 12 Lead EKG 12/26/24 0526 MR#: [id number] Acct: [id number] Name: SCARLETT LANDRY YVAN Rep #:[id number] : 1960 64 From: Joseph valiente MD Attending Dr: Dr. Baudilio Castellanos MD Status: ADM IN Ordering Dr: Abhi Chong DO Da te: 12/26/24 Location: [facility] Sex: M C Admitted: 12/24/24 Test Reason : AM EKG Blood Pressure : */* mmHG Vent. Rate : 106 BPM Atrial Rate : * BPM P-R Int : * ms QRS Dur : 152 ms QT Int : 342 ms P-R-T Axes : * 31 177 degrees QTcB Int : 454 ms Atrial fibrillation with rapid ventricular response Left bundle branch block Abnormal ECG When compared with ECG of 24-Dec-2024 22:29, MANUAL COMPARISON REQUIRED DATA IS UNCONFIRMED Confirmed by Joseph Johnson ([id number]), fan mail editor JUAN TOSCANO ([id number]) on 12/26/2024 1:27:43 PM Referred By: Confirmed By: Joseph Johnson 12/26/24 1327 Date _ Joseph Johnson MD CC: Dr. Abhi Chong DO; Dr. Baudilio Castellanos MD; No Primary Care Physician ~ Signed [facility] Work Phone: EKG study [facility] Cardiovascular Services [address] [place] [address] 12 Lead EKG 12/24/24 1649 MR#: [id number] Acct: [id number] Name: SCARLETT LANDRY Rep #:[id number] : 1960 64 From: Joseph valiente MD Attending Dr: Dr. Baudilio Castellanos MD Status: ADM IN Ordering Dr: Yuniel Hoffman MD Date: 12/24 Location: [facility] Sex: M C Admitted: 12/24/24 Test Reason : CP Blood Pressure : */* mmHG Vent. Rate : 123 BPM Atrial Rate : 246 BPM P-R Int : * ms QRS Dur : 144 ms QT Int : 432 ms P-R-T Axes : -85 0 235 degrees QTcB Int : 618 ms Atrial flutter with 2:1 A-V conduction Left bundle branch block Abnormal ECG Confirmed by Joseph Johnson ([id number]), fan mail editor JUAN TOSCANO ([id number]) on 12/26/2024 1:17:30 PM Referred By: STEPHANIE Confirmed By: Joseph Johnson 12/26/24 1317 Date _ Joseph Johnson MD CC: Dr. Baudilio Castellanos MD; Dr. Yuniel Hoffman MD; No Primary Care Physician ~ Signed [facility] Work Phone: LDL calc ser/plasOrdered By: Baudilio Castellanos on 12-26-2024 Cholesterol in LDL [Mass/Vol] 52 mg/dL [facility] Comment on above: Jdoqgauqqq=398-828 m g/dL & Higher Olqo=717 mg/dL or greaterFriedwald Equation for LDL-C Lipid Profileon 12-26-2024 CHOL:HDL 3.13 Normal [facility] Comment on above: Performed By: #### L 499.0042 #### [facility] Laboratory [address] [place], [place], [id number] Cholesterol [Mass/Vol] 97 mg/dL Normal <=200 [facility] Comment on above: Result Comment: Chol esterol level, Desirable <200 mg/dL Borderline high cholesterol 200-239 mg/dL High cholesterol >=240 mg/dL Recommendations of the NCEP Adult Treatment Panel for the following risk-cutoff thresholds for the [place] population. Performed By: #### L 499.0042 #### [facility] [address] [place], [place], [id number] Cholesterol in HDL [Mass/Vol] 31 mg/dL Low [facility] Comment on above: Result Comment: Dian onal Cholesterol Education Program (NCEP) guidelines: <40 mg/dL: Low HDL-cholesterol (major risk factor for CHD) >= 60 mg/dL: High HDL-cholesterol (negative risk factor for CHD) HDL-cholesterol is affected by a number of factors, e.g. smoking, exercise, hormones, sex and age. Performed By: #### L 499.0042 #### [facility] [address] [place], [address] Cholesterol in LDL [Mass/Vol] 52 mg/dL Normal [facility] Comment on above: Result Comment: Bord aotmmw=663-100 mg/dL Higher Sdgw=475 mg/dL or greater Friedwald Equation for LDL-C Performed By: #### L 499.0042 #### [facility] [address] [place], [address] Cholesterol in VLDL [Mass/Vol] 14 mg/dL Normal 5-40 [facility] Comment on above: Performed By: #### L 499.0042 #### [facility] [address] [place], [place], [id number] ([address] Triglyceride [Mass/Vol] 68 mg/dL Normal [facility] Comment on above: Result Comment: The drugs N-Acetylcysteine and Metamizole may falsely depress this assay. Normal range: <150 mg/dL Borderline High: 150-199 mg/dL High: 200-499 mg/dL Very High: >500 mg/dL Performed By: #### L 499.0042 #### [facility] [address] [place], [address] Partial Thromboplast Timeon 12-26-2024 aPTT Coag (Bld) [Time] 56.2 s High 24.1-36.2 [facility] Comment on above: Order Comment: Comme nts: Heparin drip Performed By: #### L 300.4310 #### [facility] [address] [place], [address] Screening total cholesterol/ high density lipoprotein (HDL) cholesterol ratioOrdered By: Baudilio Castellanos on 12-26-2024 Cholesterol.total/Heide sterol in HDL [Mass ratio] 3.13 {ratio} [facility] Serum or plasma cholesterol in HDL measurement (mass/volume)Ordered By: Baudilio Castellanos on 12-26-2024 Cholesterol in HDL [Mass/Vol] 31 mg/dL Low >40 [facility] Comment on above: National Cholesterol Education Program (NCEP) guidelines:<40 mg/dL: Low HDL-cholesterol (major risk factor for CHD)>= 60 mg/dL: High HDL-cholesterol (negative risk factor for CHD)HDL-cholesterol is affected by a number of factors, e.g. smoking, exercise, hormones, sex and age. Serum or plasma cholesterol measurement (mass/volume)Ordered By: Baudilio Castellanos on 12-26-2024 Cholesterol [Mass/Vol] 97 mg/dL <201 [facility] Comment on above: Cholesterol level, D esirable <200 mg/dLBorderline high cholesterol 200-239 mg/dLHigh cholesterol >=240 mg/dLRecommendations of the NCEP Adult Treatment Panel for the following risk-cutoff thresholds for the [place] population. Stress Reporton 12-26-2024 Stress Report [facility] Cardiovascular Services [address] [place] [address] MR#: [id number] Acct: [id number] Name: SCARLETT LANDRY Rep #: [id number] : 1960 64 From: Tim Miller MD Primary Care: Care Physician,No Primary Status: ADM IN Referring Dr: Marissa Hernandez Stress Test Report Date: 12/26/2024 Procedure: Pharmacologic stress nuclear imaging study Indications: Chest pain Consent: Per the patient Procedure: The patient underwent pharmacologic (Regadenoson 0.4mg ) evaluation with a peak heart rate of 118 beats per minute (75%predicted maximal heart rate) and a peak blood pressure of 120/90 mmHg. The baseline ECG demonstrated atrial fibrillation with left bundle branch block. The peak pharmacologic ECG was nondiagnostic secondary to baseline abnormalities. Occasional PVCs noted. There was no complaint of chest discomfort during pharmacologic infusion or recovery. The patient was injected with 14.8 millicuries of technetium 99m Cardiolite and subsequently rest SPECT Cardiolite nuclear imaging was obtained in the horizontal long, vertical long, and short axis views. The patient underwent pharmacologic (Regadenoson) evaluation. The patient was injected with 45.0 millicuries of technetium 99m Cardiolite and subsequently stress SPECT Cardiolite nuclear imaging was obtained in the horizontal long, vertical long, and short axis views. A gated Cardiolite study at peak stress was obtained. The examination was stopped secondary to completion of protocol. Rest and stress SPECT Cardiolite nuclear imaging status post realignment, normalization, and attenuation correction demonstrate mildly dilated left ventricular cavity. Mild fixed apical defect suggestive of apical thinning. No reversible perfusion defects. Gated studies revealed severe generalized hypokinesis. The reported LVEF is 20%. Impression: 1. Pharmacologic (Regadenoson) evaluation 2. Peak pharmacologic ECG nondiagnostic secondary to baseline abnormalities. 3. Occasional PVCs noted. 5. No reversible perfusion defects. Fixed apical defect likely secondary to apical thinning. 6. The gated Cardiolite study reports an LVEF of 20%. This note was generated with The RealRealation software. It may contain incorrect words, spelling, and punctuation that were not noted in checking the note before signing. 12/26/246 Date Tim Miller MD CC: Dr. Patric Colmenares MD; Dr. Abhi Chong DO; Dr. Baudilio Castellanos MD; Dr. Yuniel Hoffman MD; No Primary Care Physician Date Dictated: 12/26/241202 Date Transcribed: 12/26/241202 Wastewater Design Engineer: RASHIDA Signed Normal [facility] T4 Free Directon 12-26-2024 T4 FREE DIRECT 1.30 ng/dL Normal 0.76-1.46 [facility] Comment on above: Performed By: #### L 499.0042 #### [facility] Laboratory [facility] [place], [address] T4 freeOrdered By: Baudilio gould on 12-26-2024 Free T4 [Mass/Vol] 1.30 ng/dL 0.76-1.46 [facility] TSH DL <= 0.005 mIU/L QnOrde red By: Baudilio Castellanos on 12-26-2024 TSH Qn 2.650 uIU/mL 0.300-4.200 [facility] Thyroid Stim Hormone (TSH)on 12-26-2024 TSH 2.650 uIU/mL Normal 0.300-4.200 [facility] Comment on above: Performed By: #### L 499.0042 #### [facility] Laboratory [address] [place], [address] Triglycerides measurementOrd ered By: Baudilio Castellanos on 12-26-2024 Triglyceride [Mass/Vol] 68 mg/dL <199 [facility] Comment on above: The drugs N-Acetylcy steine and Metamizole may falsely depress this assay. Normal range: <150 mg/dLBorderline High: 150-199 mg/dLHigh: 200-499 mg/dLVery High: >500 mg/dL Basic Metabolic Profile (BMP )on 12-25-2024 BUN/CRE 19.5 RATIO Normal 10-20 [facility] Comment on above: Performed By: #### L 500.2500 #### [facility] [address] [place], [address] Calcium [Mass/Vol] 9.6 mg/dL Normal 7.6-11.0 [facility] Comment on above: Performed By: #### L 500.2500 #### [facility] [address] [place], [address] Chloride [Moles/Vol] 104 mmol/L Normal 98-108 [facility] Comment on above: Performed By: #### L 500.2500 #### [facility] [address] [place], [address] CO2 [Moles/Vol] 23.4 mmol/L Normal 21.0-32.0 [facility] Comment on above: Performed By: #### L 500.2500 #### [facility] [address] [place], [address] Creatinine [Mass/Vol] 1.40 mg/dL High 0.70-1.20 [facility] Comment on above: Performed By: #### L 500.2500 #### [facility] [address] [place], [address] ECRCL 71.01 ml/min Normal 50-250 [facility] Comment on above: Performed By: #### L 500.2500 #### [facility] [address] [place], [address] GAP 13 Normal 5-15 [facility] Comment on above: Performed By: #### L 500.2500 #### [facility] [address] [place], [address] GFR/1.73 sq M.predicted among non-blacks MDRD (S/P/Bld) [Vol rate/Area] 56 mL/min/{1.73_m2} Low >60 [facility] Comment on above: Result Comment: mL/m in/1.73m2 CKD-EPI Creatinine Equation (2020) Performed By: #### L 500.2500 #### [facility] [address] [place], [address] Glucose [Mass/Vol] 114 mg/dL High 70-99 [facility] Comment on above: Performed By: #### L 500.2500 #### [facility] [address] [place], [address] Potassium [Moles/Vol] 4.1 mmol/L Normal 3.3-5.1 [facility] Comment on above: Performed By: #### L 500.2500 #### [facility] [address] [place], [address] Sodium [Moles/Vol] 141 mmol/L Normal 133-145 [facility] Comment on above: Performed By: #### L 500.2500 #### [facility] [address] [place], [address] Urea nitrogen [Mass/Vol] 27 mg/dL High 4-19 [facility] Comment on above: Performed By: #### L 500.2500 #### [facility] [address] [place], [address] CBC W/Diff, Automatedon 12-12 Absolute Lymph 3.05 X10 3/uL Normal 0.83-4.51 [facility] Comment on above: Performed By: #### L 499.0042 #### [facility] [address] [place], [address] Absolute Neut 6.3 X10 3/uL Normal 2.0-7.7 [facility] Comment on above: Performed By: #### L 499.0042 #### [facility] [address] [place], [address] Basophils/100 WBC (Bld) 0.6 % Normal 0-1 [facility] Comment on above: Performed By: #### L 499.0042 #### [facility] [address] [place], [address] Eosinophils/100 WBC (Bld) 0.9 % Normal 0-5 [facility] Comment on above: Performed By: #### L 499.0042 #### [facility] [address] [place], [address] Erythrocyte distribution width (RBC) [Ratio] 14.4 % Normal 11.6-14.6 [facility] Comment on above: Performed By: #### L 499.0042 #### [facility] [address] [place], [address] Hematocrit (Bld) [Volume fraction] 46.4 % Normal 40-54 [facility] Comment on above: Performed By: #### L 499.0042 #### [facility] [address] [place], [address] Hemoglobin (Bld) [Mass/Vol] 14.7 g/dL Normal 13.0-16.5 [facility] Comment on above: Performed By: #### L 499.0042 #### [facility] [address] [place], [address] IG% 0.300 Normal 0.0-0.9 [facility] Comment on above: Result Comment: IG% - Immature Granulocytes (promyelocytes, myelocytes and metamyelocytes) > 1% indicates that a LEFT SHIFT is Present. Performed By: #### L 499.0042 #### [facility] [address] [place], [address] Lymphocytes/100 WBC (Bld) 28.3 % Normal 19-41 [facility] Comment on above: Performed By: #### L 499.0042 #### [facility] [address] [place], [address] MCH (RBC) [Entitic mass] 30.4 pg Normal 27.0-32.0 [facility] Comment on above: Performed By: #### L 499.0042 #### [facility] [address] [place], [address] MCHC (RBC) [Mass/Vol] 31.7 g/dL Low 32-36 [facility] Comment on above: Performed By: #### L 499.0042 #### [facility] [address] [place], [address] MCV (RBC) [Entitic vol] 95.9 fL High 80-94 [facility] Comment on above: Performed By: #### L 499.0042 #### [facility] [address] [place], [address] Monocytes/100 WBC (Bld) 11.9 % High 0-10 [facility] Comment on above: Performed By: #### L 499.0042 #### [facility] [address] [place], [address] Neutrophils/100 WBC (Bld) 58.0 % Normal 47-70 [facility] Comment on above: Performed By: #### L 499.0042 #### [facility] [address] [place], [address] Nucleated RBC (Bld) [#/Vol] 0 10*3/uL Normal 0-5 [facility] Comment on above: Performed By: #### L 499.0042 #### [facility] [address] [place], [address] Platelet mean volume (Bld) [Entitic vol] 10.8 fL Normal 6.2-12.0 [facility] Comment on above: Performed By: #### L 499.0042 #### [facility] [address] [place], [address] Platelets (Bld) [#/Vol] 241 10*3/uL Normal 150-450 [facility] Comment on above: Performed By: #### L 499.0042 #### [facility] [address] [place], [address] RBC (Bld) [#/Vol] 4.84 10*6/uL Normal 4.6-6.2 [facility] Comment on above: Performed By: #### L 499.0042 #### [facility] [address] [place], [address] RDW SD 49.9 fl High 35.1-43.9 [facility] Comment on above: Performed By: #### L 499.0042 #### [facility] [address] [place], [address] WBC (Bld) [#/Vol] 10.8 10*3/uL Normal 4.4-11.0 [facility] Comment on above: Performed By: #### L 499.0042 #### [facility] [address] [place], [address] Consultation - Cardiologyon 12-25-2024 Consultation - Cardiology [facility] Medical Records Department [address] [place] [address] Consultation - Cardiology 12/25/24 1106 MR#: [id number] Acct: [id number] Name: SCARLETT LANDRY Rep #: [id number] : 1960 64 From: Patric Colmenares MD PCP: Care Physician,No Primary Status:ADM IN Location: [place] [address] Assessment Plan Assessment/Plan (1) NSTEMI (non-ST elevated myocardial infarction): PLAN: It is likely in the setting of acute decompensated heart failure. Patient needs ischemic evaluation for his cardiomyopathy and his chest pain. Continue with aspirin and IV heparin drip for now. Start atorvastatin 40 mg daily. Keep him n.p.o. after midnight for possible left heart catheterization tomorrow morning if creatinine remains stable. (2) Atrial flutter with rapid ventricular response: PLAN: Discontinue Cardizem in the setting of HFrEF Start metoprolol to tartrate 25 twice daily and uptitrate uptitrate as needed. He will he will need anticoagulation on discharge. Continue with IV heparin with now (3) Acute exacerbation of CHF (congestive heart failure): PLAN: Etiology of cardiomyopathy could be combination of alcohol and tachycardia induced cardiomyopathy. Ischemia has to be ruled out. Continue with IV Lasix 40 mg twice daily Discontinue Cardizem Start metoprolol tartrate He had issues with Jardiance and Entresto from before due to financial issues. Restart lisinopril 5 mg daily. 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 He has been having orthopnea, PND. He has NYHA class III heart failure symptoms. He has shortness of breath with minimal exertion. He has been having chest pain for the last 2 weeks. His chest pain has been becoming progressively worsening with minimal activity for which he presented to the hospital. He describes his chest pain as pressure substernal worse with exertion and better with rest. He had a stress test in 2022 showed small area of reversibility in the apex. Cardiology service was consulted for further evaluation. In the ED his troponin found to be elevated at 70. Alcohol level is less than 10.1. He was found to be in atrial flutter. [facility] Medical History Essential hypertension History of ETOH abuse Elevated blood pressure reading Home Medications ???Medication ???Instructions ???Recorded ???Last Taken ???Type potassium chloride 20 mEq See Rx Instructions .Route 4 12/24/24 Rx tablet,extended .COMPLEX #90 tabs release(part/cryst) (Klor-Con M) lisinopril 10 mg tablet 10 mg PO BID #180 tabs 08/24/23 Rx carvedilol 6.25 mg tablet 6.25 mg PO BID #180 TABLETS 12/24/24 Rx furosemide 40 mg tablet (Lasix) 40 mg PO DAILY #90 tabs 08/29/24 0 12/24/24 Rx Allergy/AdvReac Type Severity Reaction Status Date / Time No Known Allergies Allergy Verified 12/24/24 16:42 Family History Other COPD (chronic obstructive pulmonary disease) Heart disease Social History household members: spouse Smoking Status: Former smoker how long ago did patient quit smokin years ago alcohol intake: never substance use type: marijuana caffeine: No (None in the last couple of weeks) Physical Exam Const alert and oriented x3 HEENT normocephalic Eyes PERRL Neck full ROM Lymph Lymphatic: no lymphadenopathy noted Chest inspection of chest normal Resp normal respiratory effort Auscultation: crackles Cardio Jugular Venous Distention: JVD Rate: Negative for regular rate Heart Sounds: Negative for murmur GI normal to inspection, nondistended, normoactive bowel sounds no CVA tenderness Back/Spine no CVA tenderness Extremity General Extremity: edema Skin no rashes or lesions noted Psych mental status grossly normal Objective Data Vital Signs: Vital Signs Temp Pulse Resp BP Pulse Ox O2 Del Method 97.8 F 69 15 111/88 H 100 Room Air 12/25/24 04:00 12/25/24 09:00 12/25/24 09:00 12/25/24 09:00 12/25/24 09:00 12/25/24 10:00 Oxygen Delivery Method Room Air Weight: 267 lb 10.259 oz Body Mass Index (BMI) 38.4 Intake Output: Intake and Output for Last 24 Hours 12/23/24 12/24/24 12/25/24 23:59 23:59 23:59 Intake Total 15.67 / 18.17 279.20 / 279.20 Output Total 1175 / 1175 200 / 200 Balance -1159.33 / -1156.83 79.20 / 79.20 (more content not included)... Normal [facility] Partial Thromboplast Timeon 12-25-2024 aPTT Coag (Bld) [Time] 50.3 s High 24.1-36.2 [facility] Comment on above: Performed By: #### L 300.4310 #### [facility] [address] [place], [address] aPTT Coag (Bld) [Time] 39.4 s High 24.1-36.2 [facility] Comment on above: Order Comment: Comme nts: heparin gtt Performed By: #### L 300.4310 #### [facility] [address] [place], [address] aPTT Coag (Bld) [Time] 41.9 s High 24.1-36.2 [facility] Comment on above: Performed By: #### L 499.0042 #### [facility] [address] [place], [address] aPTT Coag (Bld) [Time] 40.5 s High 24.1-36.2 [facility] Comment on above: Performed By: #### L 300.4310 #### [facility] Laboratory [address] [place], [address] 12 Lead EKGon 12-24-2024 12 Lead EKG [facility] Cardiovascular Services [address] [place] [address] 12 Lead EKG 12/24/24 2229 MR#: [id number] Acct: [id number] Name: SCARLETT LANDRY Rep #: [id number] : 1960 64 From: Joseph Johnson MD Attending Dr: Dr. Baudilio Castellanos MD Status: ADM IN Ordering Dr: Abhi Chong DO Date: 12/24/24 Location: [facility] Sex: M C Admitted: 12/24/24 Test Reason : NSTEMI Blood Pressure : */* mmHG Vent. Rate : 93 BPM Atrial Rate : 242 BPM P-R Int : * ms QRS Dur : 158 ms QT Int : 398 ms P-R-T Axes : 88 33 216 degrees QTcB Int : 494 ms Atrial flutter with variable A-V block Left bundle branch block Abnormal ECG When compared with ECG of 24-Dec-2024 16:49, MANUAL COMPARISON REQUIRED DATA IS UNCONFIRMED Confirmed by Joseph Johnson ([id number]), fan mail editor JUAN TOSCANO ([id number]) on 12/26/2024 1:28:39 PM Referred By: Confirmed By: Joseph Johnson 12/26/24 1328 Date Joseph Johnson MD CC: Dr. Abhi Chong DO; Dr. Baudilio Castellanos MD; No Primary Care Physician Signed Normal [facility] 12 Lead EKG [facility] Cardiovascular Services [address] [place] [address] 12 Lead EKG 12/24/24 1649 MR#: [id number] Acct: [id number] Name: SCARLETT LANDRY Rep #: [id number] : 1960 64 From: Joseph Johnson MD Attending Dr: Dr. Baudilio Castellanos MD Status: ADM IN Ordering Dr: Yuniel Hoffman MD Date: 12/24/24 Location: [facility] Sex: M C Admitted: 12/24/24 Test Reason : CP Blood Pressure : */* mmHG Vent. Rate : 123 BPM Atrial Rate : 246 BPM P-R Int : * ms QRS Dur : 144 ms QT Int : 432 ms P-R-T Axes : -85 0 235 degrees QTcB Int : 618 ms Atrial flutter with 2:1 A-V conduction Left bundle branch block Abnormal ECG Confirmed by Joseph Johnson ([id number]), fan mail editor JUAN TOSCANO ([id number]) on 12/26/2024 1:17:30 PM Referred By: NATHAN/GABRIELLA Confirmed By: Joseph Johnson 12/26/24 1317 Date Joseph Johnson MD CC: Dr. Baudilio Castellanos MD; Dr. Yuniel Hoffman MD; No Primary Care Physician Signed Normal [facility] Absolute lymphocyte countOrd ered By: Yuniel Hoffman on 12-24-2024 Lymphocytes Auto (Unsp spec) [#/Vol] 2.76 10*3/uL 0.83-4.51 [facility] Absolute neutrophil countOrd ered By: Yuniel Hoffman on 12-24-2024 Neutrophils (Bld) [#/Vol] 6.0 10*3/uL 2.0-7.7 [facility] Alcohol, Blood (Medical)-Ser umon 12-24-2024 SERUM ETOH < 10.1 Normal <=10.0 [facility] Comment on above: Result Comment: This test is for medical purposes only. The legal definition of intoxication varies according to local law. Performed By: #### L 501.9100 #### [facility] Laboratory [address] [place], [address] Anion gap in Serum or Plasma Ordered By: Yuniel Hoffman on 12-24-2024 Anion gap [Moles/Vol] 12 mmol/L 08-25 [facility] Automated lymphocyte count a s percentage of total leukocytesOrdered By: Yuniel Hoffman on 12-24-2024 Lymphocytes/100 WBC Auto (Unsp spec) 27.8 % 19- [facility] BUN/creatinine ratioOrdered By: Yuniel Hoffman on 12-24-2024 Urea nitrogen/Creatinine [Mass ratio] 19.4 mg/mg 10- [facility] Basic Metabolic Profile (BMP )on 12-24-2024 BUN/CRE 19.4 RATIO Normal - [facility] Comment on above: Performed By: #### L 500.2500 #### [facility] Laboratory [address] [place], [address] Calcium [Mass/Vol] 10.1 mg/dL Normal 7.6-11.0 [facility] Comment on above: Performed By: #### L 500.2500 #### [facility] Laboratory [address] [place], [address] Chloride [Moles/Vol] 106 mmol/L Normal 98-108 [facility] Comment on above: Performed By: #### L 500.2500 #### [facility] Laboratory [address] [place], [address] CO2 [Moles/Vol] 23.4 mmol/L Normal 21.0-32.0 [facility] Comment on above: Performed By: #### L 500.2500 #### [facility] Laboratory [address] [place], [address] Creatinine [Mass/Vol] 1.37 mg/dL High 0.70-1.20 [facility] Comment on above: Performed By: #### L 500.2500 #### [facility] Laboratory [address] [place], [address] ECRCL 72.52 ml/min Normal 50-250 [facility] Comment on above: Performed By: #### L 500.2500 #### [facility] Laboratory [address] [place], [address] GAP 12 Normal 5-15 [facility] Comment on above: Performed By: #### L 500.2500 #### [facility] Laboratory [address] [place], [address] GFR/1.73 sq M.predicted among non-blacks MDRD (S/P/Bld) [Vol rate/Area] 58 mL/min/{1.73_m2} Low >60 [facility] Comment on above: Result Comment: mL/m in/1.73m2 CKD-EPI Creatinine Equation (2020) Performed By: #### L 500.2500 #### [facility] Laboratory [address] [place], [address] Glucose [Mass/Vol] 109 mg/dL High 70-99 [facility] Comment on above: Performed By: #### L 500.2500 #### [facility] Laboratory [address] [place], [address] Potassium [Moles/Vol] 4.6 mmol/L Normal 3.3-5.1 [facility] Comment on above: Performed By: #### L 500.2500 #### [facility] Laboratory [address] [place], [address] Sodium [Moles/Vol] 141 mmol/L Normal 133-145 [facility] Comment on above: Performed By: #### L 500.2500 #### [facility] Laboratory [address] [place], [address] Urea nitrogen [Mass/Vol] 27 mg/dL High 4-19 [facility] Comment on above: Performed By: #### L 500.2500 #### [facility] Laboratory [address] [place], [address] Basophil percentageOrdered B y: Yuniel Hoffman on 12-24-2024 Basophils/100 WBC (Bld) 0.4 % 0-1 [facility] CBC W/Diff, Automatedon 12-12 Absolute Neut Normal 2.0-7.7 [facility] Comment on above: Order Comment: Comme nts: If not done in prior 24 hours Result Comment: DUPL ICATE ORDER Performed By: #### L 300.3900, L100.0100 #### [facility] Laboratory [address] [place], [address] HCT Normal 40-54 [facility] Comment on above: Order Comment: Comme nts: If not done in prior 24 hours Result Comment: DUPL ICATE ORDER Performed By: #### L 300.3900, L100.0100 #### [facility] Laboratory [address] [place], [address] HGB Normal 13.0-16.5 [facility] Comment on above: Order Comment: Comme nts: If not done in prior 24 hours Result Comment: DUPL ICATE ORDER Performed By: #### L 300.3900, L100.0100 #### [facility] Laboratory [address] [place], [address] MCH Normal 27.0-32.0 [facility] Comment on above: Order Comment: Comme nts: If not done in prior 24 hours Result Comment: DUPL ICATE ORDER Performed By: #### L 300.3900, L100.0100 #### [facility] Laboratory [address] [place], [address] MCHC Normal 32-36 [facility] Comment on above: Order Comment: Comme nts: If not done in prior 24 hours Result Comment: DUPL ICATE ORDER Performed By: #### L 300.3900, L100.0100 #### [facility] Laboratory [address] [place], [address] MCV Normal 80-94 [facility] Comment on above: Order Comment: Comme nts: If not done in prior 24 hours Result Comment: DUPL ICATE ORDER Performed By: #### L 300.3900, L100.0100 #### [facility] Laboratory [address] [place], [address] NEUT% Normal 47-70 [facility] Comment on above: Order Comment: Comme nts: If not done in prior 24 hours Result Comment: DUPL ICATE ORDER Performed By: #### L 300.3900, L100.0100 #### [facility] Laboratory [address] [place], [address] PLT Normal 150-450 [facility] Comment on above: Order Comment: Comme nts: If not done in prior 24 hours Result Comment: DUPL ICATE ORDER Performed By: #### L 300.3900, L100.0100 #### [facility] Laboratory [address] [place], [address] RBC Normal 4.6-6.2 [facility] Comment on above: Order Comment: Comme nts: If not done in prior 24 hours Result Comment: DUPL ICATE ORDER Performed By: #### L 300.3900, L100.0100 #### [facility] Laboratory [address] [place], [address] RDW CV Normal 11.6-14.6 [facility] Comment on above: Order Comment: Comme nts: If not done in prior 24 hours Result Comment: DUPL ICATE ORDER Performed By: #### L 300.3900, L100.0100 #### [facility] Laboratory [address] [place], [address] RDW SD Normal 35.1-43.9 [facility] Comment on above: Order Comment: Comme nts: If not done in prior 24 hours Result Comment: DUPL ICATE ORDER Performed By: #### L 300.3900, L100.0100 #### [facility] Laboratory [address] [place], [address] WBC Normal 4.4-11.0 [facility] Comment on above: Order Comment: Comme nts: If not done in prior 24 hours Result Comment: DUPL ICATE ORDER Performed By: #### L 300.3900, L100.0100 #### [facility] Laboratory [address] [place], [address] Absolute Lymph 2.76 X10 3/uL Normal 0.83-4.51 [facility] Comment on above: Performed By: #### L 500.2500 #### [facility] Laboratory [address] [place], [address] Absolute Neut 6.0 X10 3/uL Normal 2.0-7.7 [facility] Comment on above: Performed By: #### L 500.2500 #### [facility] Laboratory [address] [place], [address] Basophils/100 WBC (Bld) 0.4 % Normal 0-1 [facility] Comment on above: Performed By: #### L 500.2500 #### [facility] Laboratory [address] [place], [address] Eosinophils/100 WBC (Bld) 0.8 % Normal 0-5 [facility] Comment on above: Performed By: #### L 500.2500 #### [facility] Laboratory [address] [place], [address] Erythrocyte distribution width (RBC) [Ratio] 14.2 % Normal 11.6-14.6 [facility] Comment on above: Performed By: #### L 500.2500 #### [facility] Laboratory [address] [place], [address] Hematocrit (Bld) [Volume fraction] 45.8 % Normal 40-54 [facility] Comment on above: Performed By: #### L 500.2500 #### [facility] Laboratory [address] [place], [address] Hemoglobin (Bld) [Mass/Vol] 15.1 g/dL Normal 13.0-16.5 [facility] Comment on above: Performed By: #### L 500.2500 #### [facility] Laboratory [address] [place], [address] IG% 0.300 Normal 0.0-0.9 [facility] Comment on above: Result Comment: IG% - Immature Granulocytes (promyelocytes, myelocytes and metamyelocytes) > 1% indicates that a LEFT SHIFT is Present. Performed By: #### L 500.2500 #### [facility] Laboratory [address] [place], [address] Lymphocytes/100 WBC (Bld) 27.8 % Normal 19-41 [facility] Comment on above: Performed By: #### L 500.2500 #### [facility] Laboratory [facility] [place], [address] MCH (RBC) [Entitic mass] 31.4 pg Normal 27.0-32.0 [facility] Comment on above: Performed By: #### L 500.2500 #### [facility] Laboratory [address] [place], [place] [address], [address] MCHC (RBC) [Mass/Vol] 33.0 g/dL Normal 32-36 [facility] Comment on above: Performed By: #### L 500.2500 #### [facility] Laboratory [facility] [place], [address] MCV (RBC) [Entitic vol] 95.2 fL High 80-94 [facility] Comment on above: Performed By: #### L 500.2500 #### [facility] Laboratory [address] [place], [address] Monocytes/100 WBC (Bld) 10.6 % High 0-10 [facility] Comment on above: Performed By: #### L 500.2500 #### [facility] Laboratory [address] [place], [address] Neutrophils/100 WBC (Bld) 60.1 % Normal 47-70 [facility] Comment on above: Performed By: #### L 500.2500 #### [facility] Laboratory [address] [place], [address] Nucleated RBC (Bld) [#/Vol] 0 10*3/uL Normal 0-5 [facility] Comment on above: Performed By: #### L 500.2500 #### [facility] Laboratory [address] [place], [address] Platelet mean volume (Bld) [Entitic vol] 11.3 fL Normal 6.2-12.0 [facility] Comment on above: Performed By: #### L 500.2500 #### [facility] Laboratory [address] [place], [address] Platelets (Bld) [#/Vol] 253 10*3/uL Normal 150-450 [facility] Comment on above: Performed By: #### L 500.2500 #### [facility] Laboratory [address] [place], [address] RBC (Bld) [#/Vol] 4.81 10*6/uL Normal 4.6-6.2 [facility] Comment on above: Performed By: #### L 500.2500 #### [facility] Laboratory [address] [place], [address] RDW SD 49.7 fl High 35.1-43.9 [facility] Comment on above: Performed By: #### L 500.2500 #### [facility] Laboratory [address] [place], [address] WBC (Bld) [#/Vol] 9.9 10*3/uL Normal 4.4-11.0 [facility] Comment on above: Performed By: #### L 500.2500 #### [facility] Laboratory [address] [place], [address] Carbon dioxide, total [Moles /volume] in Central venous bloodOrdered By: Yuniel Hoffman on 12-24-2024 CO2 [Moles/Vol] 23.4 mmol/L 21.0-32.0 [facility] Chest PA and Lateralon 12-24 Chest PA and Lateral [facility] Imaging Services [address] [place] [address] Chest PA and Lateral MR#: [id number] Acct: [id number] Name: SCARLETT LANDRY Rep #: [id number] : 1960 M 64 From: Dylon Wei MD PCP: Care Physician,No Primary Status: REG ER Study: Chest PA and Lateral Date of Exam: 12/24/24 Exam# [id number] Ordering Dr: Yuniel Hoffman MD PROCEDURE: CHEST PA AND LATERAL 12/24/2024 REASON FOR EXAM: CHEST PAIN TECHNIQUE: Procedure Code: RADCXR Modality: DX Procedure: CHEST PA AND LATERAL COMPARISON: Chest x-ray 07/14/2022 FINDINGS: Hardware: None. Heart: The heart is enlarged but stable. Mediastinum: The mediastinal contour is unremarkable. Lungs: Mild pulmonary vascular congestion. No focal consolidation, pneumothorax, or effusion. Bones: The bones are unremarkable. RAD/Chest PA and Lateral IMPRESSION: Stable cardiomegaly with mild pulmonary vascular congestion. Reading Location: [facility] CC: Dr. Yuniel Hoffman MD; No Primary Care Physician Wastewater Design Engineer: Signed Normal [facility] Chloride assayOrdered By: Gabriella Hoffman on 12-24-2024 Chloride [Moles/Vol] 106 mmol/L 98-108 [facility] Echo Complete W/ Contraston 12-24-2024 Echo Complete W/ Contrast [facility] Cardiovascular Services [address] [place] [address] Echo Complete W/ Contrast 12/26/24 0735 MR#: [id number] Acct: [id number] Name: SCARLETT LANDRY Rep #: [id number] : 1960 64 From: Tim Miller MD Attending Dr: Dr. Baudilio Castellanos MD Status: ADM IN Ordering Dr: Abhi Chong DO Date: 12/24/24 Location: U Sex: M C Admitted: 12/24/24 Reason For Study Reason For Study: CHF Procedure This was a 2D Doppler, Color Flow transthoracic echocardiogram. The study was technically difficult. Exam performed portable in patient room. Left Ventricle Moderately dilated left ventricle. Severe global LV systolic dysfunction. Estimated LVEF 5%. Stage I diastolic dysfunction. Right Ventricle Normal RV size. Mild global right ventricular systolic dysfunction. Atria There is mild biatrial dilatation. Mitral Valve The mitral valve is structurally normal. No prolapse or stenosis seen. Mild-Moderate (1-2+) mitral valve insufficiency. Tricuspid Valve Normal tricuspid valve. Mild (1+) tricuspid valve insufficiency. Pulmonary artery systolic pressure is 39 mmHg. Aortic Valve Trisinus/trileaflet aortic valve. Mild focal aortic valve thickening. Trivial aortic valve insufficiency. Pulmonic Valve Normal pulmonic valve. Mild-Moderate (1-2+) pulmonic valve insufficiency. Great Vessels Mildly dilated aortic root. The inferior vena cava is dilated. No collapse of the inferior vena cava. Pericardium/Pleural Trivial pericardial effusion. Medication Diluted definity 1.0ml given slow IV push to enhance endocardial definition. MMode/2D Measurements Calculations LVIDd: 6.4 cm IVSd: 1.1 cm Ao root diam: 4.1 cm LVIDs: 5.5 cm LVPWd: 0.98 cm RVDd: 3.9 cm FS: 14.3 % LAV(MOD-bp): 68.7 ml LVAd ap4: 49.6 cm2 LVAd ap2: 46.1 cm2 LAV(MOD-bp) Indexed: 29.0 ml/m2 LVLd ap4: 9.1 cm LVLd ap2: 9.3 cm LAV(MOD-sp2): 65.5 ml EDV(MOD-sp4): 220.9 ml EDV(MOD-sp2): 188.1 ml LAV(MOD-sp4): 72.4 ml EDV(sp4-el): 229.3 ml EDV(sp2-el): 193.3 ml LVAs ap4: 46.8 cm2 LVAs ap2: 42.8 cm2 LVLs ap4: 9.1 cm LVLs ap2: 9.0 cm ESV(MOD-sp4): 198.8 ml ESV(MOD-sp2): 165.7 ml ESV(sp4-el): 204.5 ml ESV(sp2-el): 172.8 ml EF(MOD-sp4): 10.0 % EF(MOD-sp2): 11.9 % EF(sp4-el): 10.8 % SV(MOD-sp4): 22.1 ml SV(MOD-sp2): 22.4 ml SV(sp4-el): 24.7 ml SI(MOD-sp4): 9.3 ml/m2 SI(MOD-sp2): 9.5 ml/m2 LA A4 area: 25.0 cm2 LA dimension(2D): 3.9 cm RA A4 area: 23.5 cm2 Doppler Measurements Calculations MV E max al: 92.9 cm/sec Ao V2 max: 97.9 cm/sec LV V1 max: 78.9 cm/sec Ao max P.1 mmHg LV V1 max P.7 mmHg PA V2 max: 68.4 cm/sec PI end-d al: 172.9 cm/sec TR max al: 243.6 cm/sec TR max P.9 mmHg ECHO/Echo Complete W/ Contrast Interpretation Summary Moderately dilated left ventricle. Severe global LV systolic dysfunction. Estimated LVEF 5%. Stage I diastolic dysfunction. Mild global right ventricular systolic dysfunction. There is mild biatrial dilatation. Mild-Moderate (1-2+) mitral valve insufficiency. Mild (1+) tricuspid valve insufficiency. Mildly dilated aortic root. The study was technically difficult. Contrast injection was performed. Ordering Physician: Abhi Chong Performed By: Kathy Guzman RDCS 12/26/24956 Date Tim Miller MD CC: Dr. Abhi Chong DO; Dr. Baudilio Castellanos MD; No Primary Care Physician Date Dictated: 12/26/2435 Date Transcribed: 12/26/24956 Wastewater Design Engineer: Signed Normal [facility] Emergency Department Summary on 12-24-2024 Emergency Department Summary [facility] Medical Records Department [address] [place] [address] Emergency Department Summary 12/24/24 MR#: [id number] Acct: [id number] Name: SCARLETT LANDRY Rep #: [id number] : 1960 64 From: Yuniel Hoffman MD PCP: Care Physician,No Primary Status:REG ER Location: ED HPI History of Present Illness Chief Complaint: Chest Pain Informant: patient and spouse/S.O. Onset/Context/Timing Onset: Days (Exertional indigestion and dyspnea for the past 2 to 3 days) and Weeks (Pedal edema past week) Activity at onset: sudden (Exertional indigestion with dyspnea) and gradual (Swelling of his lower extremities) Timing: Intermittent Quality: Positive for Indigestion Location: Substernal (Inferior substernal region/left parasternal region) Current Severity: Gone Maximum Severity: Moderate Worsened By: Exertion; Not Worsened By Movement of Arm, Movement of Torso, Eating, Palpation, Breathing or Coughing Relieved By: Rest (Resolved after 5 to 10 minutes of rest) Associated Symptoms: Positive for Dyspnea; Negative for Nausea, Vomiting, Diaphoresis, Cough, Fever, Lightheadedness, Acid Reflux or Palpitations Narrative Narrative: Patient is a poor informant. He states he is seen by Dr. Miller. on. He admits to congestive heart failure and hypertension. He does not know why he is on carvedilol. His last echo was performed October 29, 2022. Patient had mild dilated left ventricle with mild concentric left ventricular hypertrophy and an estimated ejection fraction of 50%. The left atrium was severely enlarged and the right atrium is enlarged. Patient had a pharmacologic stress test performed August 11, 2022. Revealed small area of perfusion abnormality at the apex which is minimally worse post Lexiscan. There was no significant reversible perfusion defect noted. The gated Cardiolite study revealed an LVEF of 32%. Patient presents because of swelling, dyspnea and indigestion with exertion. He states if he goes up an incline he gets indigestion and he localizes it to the inferior sternal left parasternal region. It does not radiate. It is associated with shortness of breath. He states he has trouble getting his breath. His symptoms resolved after 5 to 10 minutes of rest. He has no known history of coronary disease. He and his states he has never had a cardiac catheterization. He has no history of atrial fibrillation or atrial flutter. Patient denies history of peptic ulcers, GERD, hiatal hernia. Patient denies intolerance to greasy or fried foods. Patient does have stable two-pillow orthopnea. He is also concerned because of increased swelling of his lower extremities. He is on furosemide. He reports compliance. Prior Similar Symptoms: No Recent Illness/Hospitalization : No CVD Risk Factors: Positive for Hypertension; Negative for Diabetes, Hypercholesterolemia or Family History 1' PE Risk Factors: Negative for Recent Travel/Surgery, Recent Immobilization, Prior DVT or PE, Cancer or OCP + Smoking + >/=35 TAD Risk Factors: Positive for Hypertension; Negative for Marfan's Syndrome or Family History PFSH PFSH Medical History Essential hypertension History of ETOH abuse Elevated blood pressure reading Home Medications ???Medication ???Instructions ???Recorded ???Last Taken ???Type potassium chloride 20 mEq See Rx Instructions .Route 4 12/24/24 Rx tablet,extended .COMPLEX #90 tabs release(part/cryst) (Klor-Con M) lisinopril 10 mg tablet 10 mg PO BID #180 tabs 08/24/23 Rx carvedilol 6.25 mg tablet 6.25 mg PO BID #180 TABLETS 12/24/24 Rx furosemide 40 mg tablet (Lasix) 40 mg PO DAILY #90 tabs 08/29/24 0 12/24/24 Rx Allergy/AdvReac Type Severity Reaction Status Date / Time No Known Allergies Allergy Verified 12/24/24 16:42 Family History Other COPD (chronic obstructive pulmonary disease) Heart disease Social History (Updated 12/24/24 @ 17:[address] Yuniel Hoffman MD) household members: spouse Smoking Status: Former smoker how long ago did patient quit smokin years ago alcohol intake: never substance use type: marijuana caffeine: No (None in the last couple of weeks) ROS ROS ED Constitutional Constitutional ED: Denies chills, fever(s), subjective or sweats Eyes Eyes: Reports none ENT ENT ED: Denies rhinorrhea or sore throat Cardiovascular Cardiovascular: Reports as per HPI and orthopnea; Denies paroxysmal nocturnal dyspnea Respiratory/Chest Respiratory/Chest: Reports dyspnea on exertion and orthopnea; Denies cough, dyspnea or paroxysmal nocturnal dyspnea Gastrointestinal Gastrointestinal: Denies abdominal pain, melena, nausea or vomiting Musculoskeletal Musculoskeletal: Denies arthralgias, back pa (more content not included)... Normal [facility] Eosinophil percentageOrdered By: Yuniel Hoffman on 12-24-2024 Eosinophils/100 WBC (Bld) 0.8 % 0-5 [facility] Erythrocyte distribution wid th ratioOrdered By: [facility] on 12-24-2024 Erythrocyte distribution width (RBC) [Ratio] 14.2 % 11.6-14.6 [facility] Erythrocyte distribution wid th standard deviationOrdered By: Yunielchaim Hoffman on 12-24-2024 Erythrocyte distribution width (RBC) [Ratio] 49.7 fl High 35.1-43.9 [facility] Glomerular filtration rate ( GFR) estimation/1.73 sq m using serum, plasma, or whole bOrdered By: Yunielchaim Hoffman on 12-24-2024 GFR/1.73 sq M.predicted among non-blacks MDRD (S/P/Bld) [Vol rate/Area] 58 mL/min/{1.73_m2} Low >60 [facility] Comment on above: mL/min/1.73m2 CKD-EP I Creatinine Equation (2020) H AND P Exam - [facility] 12-24-2024 H&P Exam - Hospitalist [facility] Medical Records Department [address] [place] [address] H P Exam - Hospitalist 12/24/24 1930 MR#: [id number] Acct: [id number] Name: SCARLETT LANDRY Rep #: [id number] : 1960 64 From: Abhi Chong DO PCP: Care Physician,No Primary Status:ADM IN Location: [facility] [id number] HPI - General General Date of Admission: 12/24/24 Date of Service: 12/24/24 Chief Complaint: Exertional dyspnea and lower extremity swelling HPI Narrative SCARLETT LANDRY, is a 64 M who presented to [facility] ED on 12/24/2024 with exertional dyspnea and lower extremity swelling. 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 Patient lives home with his . He has noticed increasing lower extremity swelling over the past several weeks. He has now noticed worsening shortness of breath and chest discomfort with exertion over the past several days. He also reports orthopnea. Has been taking his home Lasix as prescribed with good urine output. Patient reports very occasional alcohol use now with last use about 2 months ago. Has never had sleep apnea testing done. In the ED today heart rate noted to be in the 120s, and EKG showed what appeared to be slow atrial flutter with 2:1 conduction. Chest x- ray with stable cardiomegaly with mild pulmonary vascular congestion. BNP 7117. Troponin trend 60 > 59. Given concern for new onset A-flutter, CHF and concern for NSTEMI, case was discussed with cardiology who recommended heparin drip for anticoagulation and n.p.o. for possible cath tomorrow. Hospitalist was then contacted for admission. I saw the patient at bedside in the ED, was present. Patient was sitting back comfortably in bed, conversing normally, in no acute distress. He was breathing comfortably on room air at rest. On lung auscultation he had mild crackles noted in bilateral bases but otherwise good air movement throughout. Had +1-2 lower extremity pitting edema up to the upper calf noted. Denied any other acute concerns currently. Will be admitted for further management. [facility] Medical History Essential hypertension History of ETOH abuse Elevated blood pressure reading Home Medications ???Medication ???Instructions ???Recorded ???Last Taken ???Type potassium chloride 20 mEq See Rx Instructions .Route 4 12/24/24 Rx tablet,extended .COMPLEX #90 tabs release(part/cryst) (Klor-Con M) lisinopril 10 mg tablet 10 mg PO BID #180 tabs 08/24/23 Rx carvedilol 6.25 mg tablet 6.25 mg PO BID #180 TABLETS 12/24/24 Rx furosemide 40 mg tablet (Lasix) 40 mg PO DAILY #90 tabs 08/29/24 0 12/24/24 Rx Allergy/AdvReac Type Severity Reaction Status Date / Time No Known Allergies Allergy Verified 12/24/24 16:42 Family History Other COPD (chronic obstructive pulmonary disease) Heart disease Social History (Updated 12/24/24 @ 17:[address] Yuniel Hoffman MD) household members: spouse Smoking Status: Former smoker how long ago did patient quit smokin years ago alcohol intake: never substance use type: marijuana caffeine: No (None in the last couple of weeks) ROS Constitutional Constitutional: Reports fatigue; Denies chills, fever(s) or weakness Cardiovascular Cardiovascular: Reports dyspnea on exertion, edema and orthopnea; Denies chest pain, lightheadedness or palpitations Respiratory/Chest Respiratory/Chest: Reports shortness of breath with exertion; Denies cough, productive cough, shortness of breath at rest or wheezing Gastrointestinal Gastrointestinal: Denies abdominal pain Musculoskeletal Musculoskeletal: Denies arthralgias or myalgias Neurologic Neurologic: Denies dizziness, focal weakness or headache(s) Vital Signs Vital Signs Vital Signs: 12/24/24 16:41 12/24/24 17:03 12/24/24 17:49 Temperature 98.0 F Temperature Source Oral Pulse Rate 120 H 122 H Respiratory Rate 22 H 16 Respiratory Effort Normal Respiratory Depth Normal Respiratory Pattern Normal Blood Pressure 146/114 H 130/103 H Blood Pressure Mean 124 112 Pulse Ox 98 98 Oxygen Delivery Method Room Air Room Air Room Air 12/24/24 17:50 12/24/24 17:50 Temperature 98.8 F Temperature Source Oral Pulse Rate 122 H Respiratory Rate 16 Respiratory Effort Respiratory Depth Respiratory Pattern Blood Pressure 129/108 H Blood Pressure Mean 115 Pulse Ox 98 Oxygen Delivery Method Room Air Room Air Weight Weight: 122.742 kg Body Mass Index (BMI) 38.8 Physical Exam Const alert, oriented x3 and no apparent distress Constituti (more content not included)... Normal [facility] Hematocrit Auto (Bld) [Volum e fraction]Ordered By: Yuniel Hoffman on 12-24-2024 Hematocrit (Bld) [Volume fraction] 45.8 % 40-54 [facility] Hemoglobin measurementOrdere d By: Yuniel Hoffman on 12-24-2024 Hemoglobin (Bld) [Mass/Vol] 15.1 g/dL 13.0-16.5 [facility] Immature granulocytes/100 WB C Auto (Bld)Ordered By: Yuniel Hoffmna on 12-24-2024 Immature granulocytes/100 WBC (Bld) 0.300 % 0.0-0.9 [facility] Comment on above: IG% - Immature Granu locytes (promyelocytes, myelocytes and metamyelocytes) > 1% indicates that a LEFT SHIFT is Present. International normalized rat io (INR) calculationOrdered By: Yuniel Hoffman on 12-24-2024 INR Coag (Bld) [Relative time] 1.2 {INR} [facility] L501.4021on 12-24-2024 Trop T High Sen 60 ng/L Invalid Interpretation Code <=22 [facility] Comment on above: Result Comment: Crit ical Result(s) Called at 12/24/2024-18:42 by Henrik Lundberg to Ambika Parish??Results read back by same. Performed By: #### L 500.2500 #### [facility] [address] [place], [address] MCV (mean corpuscular volume ) determinationOrdered By: Yuniel Hoffman on 12-24-2024 MCV (RBC) [Entitic vol] 95.2 fL High 80-94 [facility] Magnesiumon 12-24-2024 Magnesium [Mass/Vol] 2.3 mg/dL High 1.5-2.2 [facility] Comment on above: Performed By: #### L 500.2500 #### [facility] [address] [place], [address] Magnesium measurement (mass/ volume)Ordered By: Abhi Chong on 12-24-2024 Magnesium (Unsp spec) [Mass/Vol] 2.3 mg/dL High 1.5-2.2 [facility] Mean corpuscular hemoglobin (MCH) determinationOrdered By: Yuniel Hoffman on 12-24-2024 MCH (RBC) [Entitic mass] 31.4 pg 27.0-32.0 [facility] Mean corpuscular hemoglobin concentration (MCHC) determinationOrdered By: Yunielchaim Hoffman on 12-24-2024 MCHC (RBC) [Mass/Vol] 33.0 g/dL 32-36 [facility] Mean platelet volume determi nationOrdered By: Yuniel Hoffman on 12-24-2024 Platelet mean volume (Bld) [Entitic vol] 11.3 fL 6.2-12.0 [facility] Monocyte percentageOrdered B y: Yuniel Hoffman on 12-24-2024 Monocytes/100 WBC (Bld) 10.6 % High 0-10 [facility] Natriuretic peptide.B prohor shilpi N-Terminal [Mass/volume] in Serum or PlasmaOrdered By: Yunielchaim Hoffman on 12-24-2024 Natriuretic peptide.B prohormone N-Terminal [Mass/Vol] 7117 pg/mL High <900 [facility] Comment on above: Heart Failure Unlike ly: < 300 pg/mLHeart Failure Likely< 50 Years: > 450 pg/mL50-75 Years: > 900 pg/mL>75 Years: > 1800 pg/mL Neutrophil percentageOrdered By: Yunielchaim Hoffman on 12-24-2024 Neutrophils/100 WBC (Bld) 60.1 % 47-70 [facility] Nucleated red blood cell per centageOrdered By: Yunielchaim Hoffman on 12-24-2024 Nucleated RBC/100 WBC (Bld) [Ratio] 0 % 0-5 [facility] Phosphoruson 12-24-2024 Phosphate [Mass/Vol] 3.6 mg/dL Normal 2.7-4.5 [facility] Comment on above: Performed By: #### L 500.2500 #### [facility] [address] [place], [address] Platelet countOrdered By: chaim Hoffman on 12-24-2024 Platelets (Bld) [#/Vol] 253 10*3/uL 150-450 [facility] Potassium measurement (mass/ volume)Ordered By: Yunielchaim Hoffman on 12-24-2024 Potassium (Unsp spec) [Mass/Vol] 4.6 mmol/L 3.3-5.1 [facility] Pro- Brain NATRIURETIC PEPTI Paulino 12-24-2024 Natriuretic peptide B (Bld) [Mass/Vol] 7117 pg/mL High <=900 [facility] Comment on above: Result Comment: Hear t Failure Unlikely: < 300 pg/mL Heart Failure Likely < 50 Years: > 450 pg/mL 50-75 Years: > 900 pg/mL >75 Years: > 1800 pg/mL Performed By: #### L 500.2500 #### [facility] [address] [place], [address] Prothrombin Time w/INRon INR Coag (PPP) [Relative time] 1.2 {INR} Normal [facility] Comment on above: Order Comment: Comme nts: If not done in prior 24 hours Performed By: #### L 300.3900, L100.0100 #### [facility] [address] [place], [address] PT Coag (PPP) [Time] 15.8 s High 11.7-14.9 [facility] Comment on above: Order Comment: Comme nts: If not done in prior 24 hours Performed By: #### L 300.3900, L100.0100 #### [facility] [address] [place], [address] Prothrombin timeOrdered By: Yuniel Hoffman on 12-24-2024 PT Coag (PPP) [Time] 15.8 s High 11.7-14.9 [facility] RBC Auto (Bld) [#/Vol]Ordere d By: Yuniel Hoffman on 12-24-2024 RBC (Bld) [#/Vol] 4.81 10*6/uL 4.6-6.2 [facility] Serum creatinine measurement (mass/volume)Ordered By: Yuniel Hoffman on 12-24-2024 Creatinine [Mass/Vol] 1.37 mg/dL High 0.70-1.20 [facility] Serum glucose measurement (m ass/volume)Ordered By: Yuniel Hoffman on 12-24-2024 Glucose [Mass/Vol] 109 mg/dL High 70-99 [facility] Serum or plasma calcium stacie urement (mass/volume)Ordered By: Yuniel Hoffman on 12-24-2024 Calcium [Mass/Vol] 10.1 mg/dL 7.6-11.0 [facility] Serum or plasma ethanol stacie urement (mass/volume)Ordered By: Abhi Chong on 12-24-2024 Ethanol [Mass/Vol] mg/dL <10.1 [facility] Comment on above: This test is for med ical purposes only. The legal definition of intoxication varies according to local law. Serum or plasma urea nitroge n measurement (mass/volume)Ordered By: Yuniel Hoffman on 12-24-2024 Urea nitrogen [Mass/Vol] 27 mg/dL High 4-19 [facility] Sodium levelOrdered By: Yuniel Hoffman on 12-24-2024 Sodium [Moles/Vol] 141 mmol/L 133-145 [facility] Troponin T HS 2 HRon 025 Trop T High Sen 59 ng/L Invalid Interpretation Code <=22 [facility] Comment on above: Result Comment: Crit ical Result(s) Called at 12/24/2024-20:28 by Henrik Lundberg to Christine Davis??Results read back by same. Performed By: #### L 499.0042 #### [facility] [address] [place], [place], [id number] ([phone]) Troponin T HS 4 HRon 025 Trop T High Sen 70 ng/L Invalid Interpretation Code <=22 [facility] Comment on above: Result Comment: Crit ical Result(s) Called at 12/24/2024-23:00 by Henrik Lundberg to Cheri Gagnon.??Results read back by same. Performed By: #### L 499.0042 #### [facility] [address] [place], [place], [id number] Trop T High Sen Normal <=22 [facility] Comment on above: Result Comment: DUPL ICATE ORDER Performed By: #### L 500.2500 #### [facility] [address] [place], [address] Troponin T.cardiac [Mass/vol ume] in Serum or Plasma by High sensitivity methodOrdered By: Abhi Chong on 12-24-2024 Troponin T.cardiac High sensitivity method [Mass/Vol] 70 ng/L Critically high <22 [facility] Comment on above: Critical Result(s) C alled at 12/24/2024-23:00 by Henrik Lundberg to Cheri Gagnon. Results read back by same. Troponin T.cardiac [Mass/vol ume] in Serum or Plasma by High sensitivity methodOrdered By: Yuniel Hoffman on 12-24-2024 Troponin T.cardiac High sensitivity method [Mass/Vol] 59 ng/L Critically high <22 [facility] Comment on above: Critical Result(s) C alled at 12/24/2024-20:28 by Henrik Lundberg to Christine Davis Results read back by same. Troponin T.cardiac High sensitivity method [Mass/Vol] 60 ng/L Critically high <22 [facility] Comment on above: Critical Result(s) C alled at 12/24/2024-18:42 by Henrik Lundberg to Ambika Parish Results read back by same. White blood cell (WBC) count Ordered By: Yuniel Hoffman on 12-24-2024 WBC (Bld) [#/Vol] 9.9 10*3/uL 4.4-11.0 [facility] Absolute lymphocyte countOrd ered By: Dr. Ro on 07-16-2022 Lymphocytes Auto (Unsp spec) [#/Vol] 2.05 10*3/uL 0.83-4.51 [facility] Basophil percentageOrdered B y: Dr. Ro on 07-16-2022 Basophil percentage 3.8 mg/dL 2.5-4.9 [facility] Basophils/100 WBC (Bld) 0.5 % 0-1 [facility] Chloride [Moles/Vol] 105 mmol/L 98-107 [facility] Eosinophils/100 WBC (Bld) 2.1 % 0-5 [facility] Glucose [Mass/Vol] 90 mg/dL 74-106 [facility] Neutrophils (Bld) [#/Vol] 5.3 10*3/uL 2.0-7.7 [facility] Neutrophils/100 WBC (Bld) 60.9 % 47-70 [facility] Potassium [Moles/Vol] 3.4 mmol/L 3.5-5.1 [facility] Sodium [Moles/Vol] 140 mmol/L 136-145 [facility] WBC (Bld) [#/Vol] 8.7 10*3/uL 4.4-11.0 [facility] Blood erythrocytes count (nu mber/volume)Ordered By: Dr. Ro on 07-16-2022 RBC (Bld) [#/Vol] 4.81 10*6/uL 4.6-6.2 [facility] Blood hemoglobin measurement (mass/volume)Ordered By: Dr. Ro on 07-16-2022 Hemoglobin (Bld) [Mass/Vol] 14.4 g/dL 13.0-16.5 [facility] Blood lymphocytes/100 leukoc ytesOrdered By: Dr. Ro on 07-16-2022 Lymphocytes/100 WBC (Bld) 23.7 % 19-41 [facility] Blood monocytes/100 leukocyt esOrdered By: Dr. Ro on 07-16-2022 Monocytes/100 WBC (Bld) 12.6 % 0-10 [facility] Blood platelet mean volumeOr dered By: Dr. Ro on 07-16-2022 Platelet mean volume (Bld) [Entitic vol] 11.3 fL 6.2-12.0 [facility] Determination of erythrocyte mean corpuscular volume (MCV)Ordered By: Dr. Ro on 07-16-2022 MCV (RBC) [Entitic vol] 97.3 fL 80-94 [facility] Hematocrit Auto (Bld) [Volum e fraction]Ordered By: Dr. Ro on 07-16-2022 Hematocrit (Bld) [Volume fraction] 46.8 % 40-54 [facility] - Chemistry and C hemistry - challengeOrdered By: Dr. Ro on 07-16-2022 CO2 [Moles/Vol] 31.0 mmol/L 21.0-32.0 [facility] Magnesium [Mass/Vol] 2.2 mg/dL 1.6-2.6 [facility] Urea nitrogen/Creatinine [Mass ratio] 17.6 mg/mg 10-20 [facility] - Hematology and Cell countsOrdered By: Dr. Ro on 07-16-2022 Erythrocyte distribution width (RBC) [Entitic vol] 49.5 fL 35.1-43.9 [facility] Erythrocyte distribution width (RBC) [Ratio] 13.7 % 11.6-14.6 [facility] Immature granulocytes/100 WBC (Bld) 0.200 % 0.0-0.9 [facility] Comment on above: IG% - Immature Granu locytes (promyelocytes, myelocytes and metamyelocytes) > 1% indicates that a LEFT SHIFT is Present. MCH (RBC) [Entitic mass] 29.9 pg 27.0-32.0 [facility] Nucleated RBC/100 WBC (Bld) [Ratio] 0 % 0-5 [facility] MCHC Auto (RBC) [Mass/Vol]Or dered By: Dr. Ro on 07-16-2022 MCHC (RBC) [Mass/Vol] 30.8 g/dL 32-36 [facility] No Panel InformationOrdered By: Dr. Ro on 07-16-2022 Estimated Creatinine Clearance Calc 56.41 ml/min [facility] Estimated GFR (MDRD) Amer 65 mL/min >60 [facility] Comment on above: GFR Calc Estimated GFR (MDRD) Non-Af Amer 54 mL/min >60 [facility] Comment on above: Non- GFR Calc Platelets bldOrdered By: Dr. Ro on 07-16-2022 Platelets (Bld) [#/Vol] 215 10*3/uL 150-450 [facility] Serum or plasma calcium stacie urement (mass/volume)Ordered By: Dr. Ro on 07-16-2022 Calcium [Mass/Vol] 9.5 mg/dL 8.5-10.1 [facility] Serum or plasma creatinine m easurement (mass/volume)Ordered By: Dr. Ro on 07-16-2022 Creatinine [Mass/Vol] 1.42 mg/dL 0.70-1.30 [facility] Comment on above: The validity of the calculated GFR & GFRAA in patients over 70 years has not been determined. Clinical correlation is essential. Serum or plasma urea nitroge n measurement (mass/volume)Ordered By: Dr. Ro on 07-16-2022 Urea nitrogen [Mass/Vol] 25 mg/dL 7-18 [facility] Thin prep Papanicolaou smear with manual screeningOrdered By: Dr. Ro on 07-16-2022 Thin prep Papanicolaou smear with manual screening 4 5-15 [facility] Basophil percentageOrdered B y: Dr. Valderrama on 07-15-2022 Bilirubin [Mass/Vol] 1.20 mg/dL 0.20-1.00 [facility] Comment on above: For patients on eltr ombopag therapy, use of Dimension [place] TBIL is not recommended. Cholesterol [Mass/Vol] 88 mg/dL <200 [facility] Comment on above: <200 mg/dL Desirable 200-240 mg/dL Borderline >240 mg/dL High Risk Protein [Mass/Vol] 6.6 g/dL 6.4-8.2 [facility] Triglyceride [Mass/Vol] 65 mg/dL <199 [facility] Comment on above: The drugs N-Acetylcy steine and Metamizole may falsely depress this assay.Serum Triglycerides Reference Interval Normal <150 mg/dL Borderline high 150 - 199 mg/dL High 200 - 499 mg/dL Very High > or = 500 mg/dL Laboratory - Chemistry and C hemistry - challengeOrdered By: Dr. Valderrama on 07-15-2022 ALP [Catalytic activity/Vol] 66 U/L 45-117 [facility] ALT [Catalytic activity/Vol] 34 U/L 16-61 [facility] Globulin (S) [Mass/Vol] 3.3 g/dL 2.2-4.2 [facility] No Panel InformationOrdered By: Dr. Valderrama on 07-15-2022 Thyroid Stimulating Hormone (TSH) 2.51 uIU/mL 0.358-3.74 [facility] Troponin I High Sensitivity 70 pg/mL 3.0-78.0 [facility] Comment on above: Please Note: New Taryn t Units and Gender Specific Reference Ranges. For more information see Policy Stat Procedure [place] High Sensitivity Troponin (TNIH) and attachments. Serum or plasma albumin stacie urement (mass/volume)Ordered By: Dr. Valderrama on 07-15-2022 Albumin [Mass/Vol] 3.3 g/dL 3.2-5.0 [facility] Serum or plasma albumin/glob ulin mass ratioOrdered By: Dr. Valderrama on 07-15-2022 Albumin/Globulin [Mass ratio] 1.0 {ratio} 0.9-2.4 [facility] Serum or plasma cholesterol in HDL measurement (mass/volume)Ordered By: Dr. Valderrama on 07-15-2022 Cholesterol in HDL [Mass/Vol] 27 mg/dL >40 [facility] Comment on above: The drugs N-Acetylcy steine and Metamizole may falsely depress this assay. Reference Range HDL <40 mg/dL Low HDL Cholesterol HDL >or= 60 mg/dL High HDL Cholesterol Serum or plasma cholesterol in VLDL measurement (mass/volume)Ordered By: Dr. Valderrama on 07-15-2022 Cholesterol in VLDL [Mass/Vol] 13 mg/dL 5-40 [facility] Serum or plasma low density lipoprotein (LDL) cholesterol measurement (mass/volume)Ordered By: Dr. Valderrama on 07-15-2022 Cholesterol in LDL [Mass/Vol] 48 mg/dL 0-130 [facility] Thin prep Papanicolaou smear with manual screeningOrdered By: Dr. Valderrama on 07-15-2022 Thin prep Papanicolaou smear with manual screening 33 U/L 15-37 [facility] Absolute lymphocyte countOrd ered By: Dr. Moise on 07-14-2022 Lymphocytes Auto (Unsp spec) [#/Vol] 2.21 10*3/uL 0.83-4.51 [facility] Basophil percentageOrdered B y: Dr. Moise on 07-14-2022 Basophils/100 WBC (Bld) 0.4 % 0-1 [facility] Chloride [Moles/Vol] 109 mmol/L 98-107 [facility] Eosinophils/100 WBC (Bld) 1.1 % 0-5 [facility] Glucose [Mass/Vol] 87 mg/dL 74-106 [facility] Neutrophils (Bld) [#/Vol] 5.7 10*3/uL 2.0-7.7 [facility] Neutrophils/100 WBC (Bld) 62.5 % 47-70 [facility] Potassium [Moles/Vol] 4.2 mmol/L 3.5-5.1 [facility] Sodium [Moles/Vol] 142 mmol/L 136-145 [facility] WBC (Bld) [#/Vol] 9.1 10*3/uL 4.4-11.0 [facility] Blood erythrocytes count (nu mber/volume)Ordered By: Dr. Moise on 07-14-2022 RBC (Bld) [#/Vol] 4.99 10*6/uL 4.6-6.2 [facility] Blood hemoglobin measurement (mass/volume)Ordered By: Dr. Moise on 07-14-2022 Hemoglobin (Bld) [Mass/Vol] 15.4 g/dL 13.0-16.5 [facility] Blood lymphocytes/100 leukoc ytesOrdered By: Dr. Moise on 07-14-2022 Lymphocytes/100 WBC (Bld) 24.4 % 19-41 [facility] Blood monocytes/100 leukocyt esOrdered By: Dr. Moise on 07-14-2022 Monocytes/100 WBC (Bld) 11.4 % 0-10 [facility] Blood platelet mean volumeOr dered By: Dr. Moise on 07-14-2022 Platelet mean volume (Bld) [Entitic vol] 11.7 fL 6.2-12.0 [facility] CNOVon 07-14-2022 CNOV Office Visit ([facility] ) SCARLETT LANDRY ([id number]) 1960 M Date Time Provider Department 07/14/22 3:15 PM MICHELLE FIGUEROA [facility] During your visit today, we recorded the following information about you: Temperature Pulse Respiration Blood pressure 98 degrees 92/minute 18/minute 138/98 Weight 134.7 kg Michelle Figueroa PA-C 07/14/2022 3:05 PM Signed Patient presents to [facility] tri[facility] with a chief complaint of [...] emergency department. His will take him to [facility]. Vital signs stable here. BP 138/98 Pulse [...] Status:Closed by MICHELLE FIGUEROA on 07/14/[address] [facility] Determination of erythrocyte mean corpuscular volume (MCV)Ordered By: Dr. Moise on 07-14-2022 MCV (RBC) [Entitic vol] 97.8 fL 80-94 [facility] Hematocrit Auto (Bld) [Volum e fraction]Ordered By: Dr. Moise on 07-14-2022 Hematocrit (Bld) [Volume fraction] 48.8 % 40-54 [facility] Laboratory - Chemistry and C hemistry - challengeOrdered By: Dr. Moise on 07-14-2022 CO2 [Moles/Vol] 28.0 mmol/L 21.0-32.0 [facility] Natriuretic peptide B (Bld) [Mass/Vol] 896.0 pg/mL 0-100 [facility] Urea nitrogen/Creatinine [Mass ratio] 17.2 mg/mg 10-20 [facility] - Hematology and Cell countsOrdered By: Dr. Moise on 07-14-2022 Erythrocyte distribution width (RBC) [Entitic vol] 50.2 fL 35.1-43.9 [facility] Erythrocyte distribution width (RBC) [Ratio] 14.0 % 11.6-14.6 [facility] Immature granulocytes/100 WBC (Bld) 0.200 % 0.0-0.9 [facility] Comment on above: IG% - Immature Granu locytes (promyelocytes, myelocytes and metamyelocytes) > 1% indicates that a LEFT SHIFT is Present. MCH (RBC) [Entitic mass] 30.9 pg 27.0-32.0 [facility] Nucleated RBC/100 WBC (Bld) [Ratio] 0 % 0-5 [facility] MCHC Auto (RBC) [Mass/Vol]Or dered By: Dr. Moise on 07-14-2022 MCHC (RBC) [Mass/Vol] 31.6 g/dL 32-36 [facility] No Panel InformationOrdered By: Dr. Moise on 07-14-2022 Estimated Creatinine Clearance Calc 62.58 ml/min [facility] Estimated GFR (MDRD) Amer 73 mL/min >60 [facility] Comment on above: GFR Calc Estimated GFR (MDRD) Non-Af Amer 61 mL/min >60 [facility] Comment on above: Non- GFR Calc Troponin I High Sensitivity 73 pg/mL 3.0-78.0 [facility] Comment on above: Please Note: New Taryn t Units and Gender Specific Reference Ranges. For more information see Policy Stat Procedure [place] High Sensitivity Troponin (TNIH) and attachments. Platelets bldOrdered By: Dr. Moise on 07-14-2022 Platelets (Bld) [#/Vol] 238 10*3/uL 150-450 [facility] Serum or plasma calcium stacie urement (mass/volume)Ordered By: Dr. Moise on 07-14-2022 Calcium [Mass/Vol] 9.8 mg/dL 8.5-10.1 [facility] Serum or plasma creatinine m easurement (mass/volume)Ordered By: Dr. Moise on 07-14-2022 Creatinine [Mass/Vol] 1.28 mg/dL 0.70-1.30 [facility] Comment on above: The validity of the calculated GFR & GFRAA in patients over 70 years has not been determined. Clinical correlation is essential. Serum or plasma urea nitroge n measurement (mass/volume)Ordered By: Dr. Moise on 07-14-2022 Urea nitrogen [Mass/Vol] 22 mg/dL 7-18 [facility] Thin prep Papanicolaou smear with manual screeningOrdered By: Dr. Moise on 07-14-2022 Thin prep Papanicolaou smear with manual screening 5 - [facility] Vital Signs Date Time Vital Sign Value Performing Clinician Facility 01-05-2025 07:24-0400 Body mass index (BMI) [Ratio] 36.7 kg/m2 No Primary Care Physician [facility] 01-05-2025 07:24-0400 Body weight 116.11 kg No Primary Care Physician [facility] 01-05-2025 07:24-0400 Diastolic blood pressure 68 mm[Hg] No Primary Care Physician [facility] 01-05-2025 07:24-0400 Heart rate 98 /min No Primary Care Physician [facility] 01-05-2025 07:24-0400 Respiratory rate 18 /min No Primary Care Physician [facility] 01-05-2025 07:24-0400 SaO2% (BldA) [Mass fraction] 100 % No Primary Care Physician [facility] 01-05-2025 07:24-0400 Systolic blood pressure 105 mm[Hg] No Primary Care Physician [facility] 12-28-2024 09:43-0400 Heart rate 85 /min No Primary Care Physician [facility] 12-28-2024 09:42-0400 Body temperature 98.1 [degF] No Primary Care Physician [facility] 12-28-2024 09:42-0400 Diastolic blood pressure 90 mm[Hg] No Primary Care Physician [facility] 12-28-2024 09:42-0400 Respiratory rate 14 /min No Primary Care Physician [facility] 12-28-2024 09:42-0400 SaO2% (BldA) [Mass fraction] 98 % No Primary Care Physician [facility] 12-28-2024 09:42-0400 Systolic blood pressure 133 mm[Hg] No Primary Care Physician [facility] 12-27-2024 05:06-0400 Body mass index (BMI) [Ratio] 37.6 kg/m2 No Primary Care Physician [facility] 12-27-2024 05:06-0400 Body weight 119.4 kg No Primary Care Physician [facility] 12-25-2024 11:02-0400 Body height 177.8 cm No Primary Care Physician [facility] 12-24-2024 19:42-0400 Body temperature 98.1 [degF] No Primary Care Physician [facility] 12-24-2024 19:42-0400 Diastolic blood pressure 100 mm[Hg] No Primary Care Physician [facility] 12-24-2024 19:42-0400 Heart rate 122 /min No Primary Care Physician [facility] 12-24-2024 19:42-0400 Respiratory rate 16 /min No Primary Care Physician [facility] 12-24-2024 19:42-0400 SaO2% (BldA) [Mass fraction] 100 % No Primary Care Physician [facility] 12-24-2024 19:42-0400 Systolic blood pressure 141 mm[Hg] No Primary Care Physician [facility] 12-24-2024 16:41-0400 Body height 177.8 cm No Primary Care Physician [facility] 12-24-2024 16:41-0400 Body mass index (BMI) [Ratio] 38.8 kg/m2 No Primary Care Physician [facility] 12-24-2024 16:41-0400 Body weight 122.74 kg No Primary Care Physician [facility] 07-30-2022 09:37-0400 Body height 177.[address] Marques Moise Work Phone: [facility] 07-30-2022 09:37-0400 Body mass index (BMI) [Ratio] 36.7 kg/m2 Dr. Marques Moise Work Phone: [facility] 07-30-2022 09:37-0400 Body weight 116.[address] Marques Moise Work Phone: [facility] 07-30-2022 09:37-0400 Diastolic blood pressure 79 mm[Hg] Dr. Marques Moise Work Phone: [facility] 07-30-2022 09:37-0400 Heart rate 71 /min Dr. Marques Moise Work Phone: [facility] 07-30-2022 09:37-0400 Respiratory rate 18 /min Dr. Marques Moise Work Phone: [facility] 07-30-2022 09:37-0400 Systolic blood pressure 114 mm[Hg] Dr. Marques Moise Work Phone: 7([phone])261-054639 [place] [address] 07-16-2022 15:44-0400 Body temperature 97.5 [degF] Dr. Marques Moise Work Phone: 7(966)[phone] [place] [address] 07-16-2022 15:44-0400 Diastolic blood pressure 90 mm[Hg] Dr. Marques Moise Work Phone: 0(281)224-910039 [place] [address] 07-16-2022 15:44-0400 Heart rate 77 /min Dr. Marques Moise Work Phone: 5([phone])781-244939 [place] [address] 07-16-2022 15:44-0400 Respiratory rate 18 /min Dr. Marques Moise Work Phone: 7([phone])[phone] [place] [address] 07-16-2022 15:44-0400 SaO2% (BldA) [Mass fraction] 97 % Dr. Marques Moise Work Phone: 6(596)313-418339 [place] [address] 07-16-2022 15:44-0400 Systolic blood pressure 131 mm[Hg] Dr. Marques Moise Work Phone: 0(358)069-418339 [place] [address] 07-16-2022 06:00-0400 Body mass index (BMI) [Ratio] 39.6 kg/m2 Dr. Marques Moise Work Phone: 7(047)224-069839 [place] [address] 07-16-2022 06:00-0400 Body weight 125.[address] Marques Moise Work Phone: 3(661)284-527539 [place] [address] 07-15-2022 12:01-0400 Body height 177.[address] Marques Moise Work Phone: 0(561)[phone] [place] [address] 07-14-2022 19:55-0400 Body temperature 98.3 [degF] [facility] 07-14-2022 19:55-0400 Diastolic blood pressure 90 mm[Hg] [facility] 07-14-2022 19:55-0400 Heart rate 77 /min [facility] 07-14-2022 19:55-0400 Respiratory rate 18 /min [facility] 07-14-2022 19:55-0400 SaO2% (BldA) [Mass fraction] 98 % [facility] 07-14-2022 19:55-0400 Systolic blood pressure 160 mm[Hg] [facility] 07-14-2022 15:25-0400 Body height 177.8 cm [facility] 07-14-2022 15:25-0400 Body mass index (BMI) [Ratio] 42.6 kg/m2 [facility] 07-14-2022 15:25-0400 Body weight 134.74 kg [facility] 07-14-2022 14:55-0400 Body temperature 98.01 [degF] Michelle Athy PA-C Work Phone: [facility] 07-14-2022 14:55-0400 Body weight 134.72 kg Michelle Athy PA-C Work Phone: [facility] 07-14-2022 14:55-0400 Diastolic blood pressure 98 mm[Hg] Michelle Athy PA-C Work Phone: [facility] 07-14-2022 14:55-0400 Heart rate 92 /min Michelle Athy PA-C Work Phone: [facility] 07-14-2022 14:55-0400 Respiratory rate 18 /min Michelle Athy PA-C Work Phone: [facility] 07-14-2022 14:55-0400 SaO2% (BldA) [Mass fraction] 97 % Michelle Athy PA-C Work Phone: [facility] 07-14-2022 14:55-0400 Systolic blood pressure 138 mm[Hg] Michelle Athy PA-C Work Phone: [facility] Encounters Encounter Date Encounter Type Care Provider Facility Start: 01-31-2025 ambulatory Joseph Johnson Facility :[facility] Start: 01-05-2025 Patient encounter procedure Jessika ALLISON -Laboratory Work Phone: Start: 01-05-2025 ambulatory No Primary Car e Physician Facility:[facility] Start: 01-05-2025 End: 01-05-2025 Patient encounter procedure Jessika ALLISON -[facility] Work Phone: Start: 01-05-2025 End: 01-05-2025 ambulatory No Primary Care Physician [facility] Start: 12-28-2024 Non-patient / Non-visit Dr. Baudilio Castellanos MD [facility] Work Phone: Start: 12-27-2024 Non-patient / Non-visit Dr. Baudilio Castellanos MD [facility] Work Phone: Start: 12-27-2024 Non-patient / Non-visit Dr. Joseph Johnson MD [facility] Start: 12-26-2024 Non-patient / Non-visit Dr. Baudilio Castellanos MD [facility] Work Phone: Start: 12-26-2024 Non-patient / Non-visit Dr. Joseph Johnson MD [facility] Start: 12-26-2024 ambulatory Tim Miller Facility:[facility] Start: 12-26-2024 Non-patient / Non-visit Dr. Tim chandra MD [facility] Start: 12-25-2024 Non-patient / Non-visit Dr. Patric yen MD [facility] Start: 12-25-2024 Non-patient / Non-visit Dr. Baudilio Castellanos MD [facility] Work Phone: Start: 12-24-2024 ambulatory Abhi Chong Fac ility:[facility] Start: 12-24-2024 End: 12-28-2024 Evaluation and management of inpatient Dr. Abhi Chong DO -[facility] Work Phone: Start: 10-30-2022 Non-patient / Non-visit Dr. Ramírez Work Phone: [facility] Work Phone: Start: 10-29-2022 Non-patient / Non-visit Dr. Ramírez Work Phone: [facility] Start: 10-29-2022 End: 10-29-[address] Marques Moise Work Phone: [facility] Work Phone: Start: 10-29-2022 End: 10-29-[address] [facility] Work [facility]: Start: 08-11-2022 Non-patient / Non-visit Dr. Ramírez Work Phone: [facility] Start: 08-07-2022 End: 08-07-[address] Marques Moise Work Phone: [facility] Work Phone: Start: 08-07-2022 End: 08-07-[address] [facility] Start: 08-07-2022 Non-patient / Non-visit Dr. Ramírez Work Phone: [facility] Start: 07-30-2022 End: 07-30-[address] Marques Moise Work Phone: [facility] Start: 07-16-2022 Non-patient / Non-visit Dr. Ramírez Work Phone: [facility] Start: 07-16-2022 Non-patient / Non-visit Dr. Ramírez Work Phone: [facility] Start: 07-15-2022 Non-patient / Non-visit Dr. Ramírez Work Phone: [facility] Start: 07-15-2022 Non-patient / Non-visit Dr. Ramírez Work Phone: [facility] Start: 07-14-2022 End: 07-16-2022 Evaluation and management of inpatient [facility] Start: 07-14-2022 End: 07-14-2022 ambulatory Facility:[facility] Start: 07-14-2022 End: 07-14-2022 Patient encounter procedure Michelle Figueroa PA-C Work Phone: [facility] Comment on above: Peripheral edema (Pr imary Dx); SOB (shortness of breath) Procedures Date Procedure Procedure Detail Performing Clinician Start: 12-28-2024 Estimated creatinine clearance No Primary Care Physician Start: 12-26-2024 Cardiovascular stres s test using pharmacologic stress agent No Primary Care Physician Start: 12-24-2024 X-ray of chest, PA a nd lateral views No Primary Care Physician Start: 12-24-2024 Estimated creatinine clearance No Primary Care Physician Start: 12-24-2024 Serum inorganic phos phate measurement No Primary Care Physician Start: 08-07-2022 Cardiovascular stres s test using pharmacologic stress agent Dr. Marques Moise Work Phone: Start: 07-14-2022 Plain chest X-ray Plan of Treatment Date Care Activity Detail Author Start: 01-31-2025 Cardioversion [facility] Start: 01-05-2025 End: 01-05-2025 Evaluation of diagnostic study results [facility] Start: 12-28-2024 Patient discharge [facility] Start: 12-26-2024 [facility] Start: 12-25-2024 Partial thromboplastin time, activated [facility] Start: 12-25-2024 Care planning and problem solving actions [facility] Start: 12-25-2024 [facility] Start: 12-25-2024 Complete blood count [facility] Start: 12-24-2024 Care planning and problem solving actions [facility] Start: 12-24-2024 Following clinical pathway protocol [facility] Start: 12-24-2024 Ambulation without limitation [facility] Start: 12-24-2024 Assessment of risk of venous thromboembolism [facility] Start: 12-24-2024 Incentive spirometry [facility] Start: 12-24-2024 Insertion of catheter into peripheral vein [facility] Start: 12-24-2024 Measuring intake and output [facility] Start: 12-24-2024 Oxygen therapy [facility] Start: 12-24-2024 Providing care according to standard [facility] Start: 12-24-2024 Referral to service [facility] Start: 12-24-2024 [facility] Start: 12-24-2024 Verification routine [facility] Start: 12-24-2024 Admission procedure [facility] Start: 12-24-2024 Partial thromboplastin time, activated [facility] Start: 12-24-2024 Prothrombin time [facility] Start: 12-24-2024 End: 12-25-2024 [facility] Start: 12-24-2024 Patient referral to dietitian [facility] Start: 12-24-2024 [facility] Start: 12-12-2022 Influenza vaccination INFLUENZA (Season Ended) [facility] Start: 07-16-2022 Patient discharge [facility] Start: 07-16-2022 Referral to senior salesforce developer [facility] Start: 07-16-2022 [facility] Start: 07-14-2022 Following clinical pathway protocol [facility] Start: 07-14-2022 Application of elastic bandage [facility] Start: 07-14-2022 Assessment of risk of venous thromboembolism [facility] Start: 07-14-2022 Catheterization of vein [facility] Start: 07-14-2022 Elevation of affected extremity [facility] Start: 07-14-2022 Insertion of catheter into peripheral vein [facility] Start: 07-14-2022 Measuring intake and output [facility] Start: 07-14-2022 Notification of physician [facility] Start: 07-14-2022 Oxygen therapy [facility] Start: 07-14-2022 Patient education [facility] Start: 07-14-2022 Providing care according to standard [facility] Start: 07-14-2022 Provision of activity privileges [facility] Start: 07-14-2022 [facility] Start: 07-14-2022 Verification routine [facility] Start: 07-14-2022 Admission procedure [facility] Start: 07-14-2022 [facility] Start: 04-13-2022 DEPRESSION ASSESSMENT DEPRESSION ASSESSMENT [facility] Start: 01-30-2016 PROSTATE CANCER SCREENING DISCUSSION PROSTATE CANCER SCREENING DISCUSSION [facility] Start: 2011 SHINGRIX VACCINE (1 of 2) SHINGRIX VACCINE (1 of 2) [facility] Start: 2006 COLOGUARD (FIT-DNA) COLOGUARD (FIT-DNA) [facility] Start: 2006 Colonoscopy COLONOSCOPY [facility] Start: 2006 COLORECTAL CANCER SCREENING COLORECTAL CANCER SCREENING [facility] Start: [address] COLONOGRAPHY [facility] Start: 2006 DIABETES SCREEN DIABETES SCREEN [facility] Start: 2006 FECAL OCCULT BLOOD FECAL OCCULT BLOOD [facility] Start: 2006 SIGMOIDOSCOPY SIGMOIDOSCOPY [facility] Start: 01-30-1996 LIPID SCREEN LIPID SCREEN [facility] Start: 01-30-1980 Urine microalbumin profile DTAP,TDAP,TD (1 - Tdap) [facility] Start: 1979 HEPATITIS C SCREENING HEPATITIS C SCREENING [facility] Start: 1979 HIV SCREENING HIV SCREENING [facility] Start: 1961 COVID-19 VACCINE (#1) COVID-19 VACCINE (#1) [facility] Anion gap in Serum o r Plasma [facility] BUN/Creatinine ratio [facility] Calcium [Mass/volume ] in Serum or Plasma [facility] Carbon dioxide, tota l [Moles/volume] in Central venous blood [facility] Creatinine [Mass/vol ume] in Serum or Plasma [facility] Erythrocyte mean corpuscular volume determination [facility] Erythrocyte mean corpuscular volume determination [facility] Ethanol [Mass/volume ] in Serum or Plasma [facility] Glucose [Mass/volume ] in Serum or Plasma [facility] Hematocrit [Volume Fraction] of Blood [facility] Hematocrit [Volume Fraction] of Blood [facility] Hemoglobin [Mass/vol ume] in Blood [facility] Hemoglobin [Mass/vol ume] in Blood [facility] INR in Blood by Coagulation assay [facility] Leukocytes [#/volume ] in Blood [facility] Leukocytes [#/volume ] in Blood [facility] Mean corpuscular hemoglobin concentration determination [facility] Mean corpuscular hemoglobin concentration determination [facility] Mean corpuscular hemoglobin determination [facility] Mean corpuscular hemoglobin determination [facility] Measurement of renal function [facility] Neutrophil count [facility] Neutrophil count [facility] Neutrophil percent differential count [facility] Neutrophil percent differential count [facility] Patient referral [facility] Work Phone: Platelets [#/volume] in Blood [facility] Platelets [#/volume] in Blood [facility] Potassium measurement [facility] Red blood cell count [facility] Red blood cell count [facility] Red cell distributio n width determination [facility] Red cell distributio n width determination [facility] Serum chloride measurement [facility] Sodium measurement [facility] Troponin T.cardiac [Mass/volume] in Serum or Plasma by High sensitivity method [facility] Urea nitrogen [Mass/volume] in Serum or Plasma [facility] Heart limited [facility] Heart limited [facility] Payers Date Payer Category Payer Self-pay [id number] 2024 Self-pay Unknown [id number] 2.16.8 [id number] Unknown [id number] 2.16.8 [id number] Unknown [id number] 2.16.8 [id number] Unknown [id number] 2.16.8 [id number] Unknown [id number] 2.16.8 [id number] Unknown [id number] 2.16.8 [id number] Unknown [id number] 2.16.8 [id number] Unknown [id number] 2.16.8 [id number] Unknown [id number] 2.16.8 [id number] Unknown [id number] 2.16.8 [id number] Unknown [id number] 2.16.8 [id number] Unknown [id number] 2.16.8 [id number] Unknown [id number] 2.16.8 [id number] Social History Date Type Detail Facility Start: 07-14-2022 End: 07-30-2022 Tobacco smoking status NHIS Unknown if ever smoked [facility] Start: 1960 Sex Assigned At Male [facility] Start: 07-14-2022 End: 12-24-2024 Tobacco smoking status NHIS Ex-smoker [facility] History of tobacco use Current smoker [facility] History of tobacco use Cigarette Smoker [facility] Start: 07-14-2022 Tobacco use and exposure Smokeless tobacco non-user [facility] Start: 07-14-2022 Alcohol intake Not Asked [facility] Start: 1960 Sex Assigned At Not on file [facility] Sex Male [facility] Goals Date Patient Goal Desired Activity /State Functional Status Date Assessment Result Facility 12-28-2024 Functional status Ambulates [facility] Work Phone: 07-16-2022 Functional status Ambulates [facility] Work Phone: Mental Status Date Assessment Result Facility 12-28-2024 Cognitive function Voice/Name [facility] Work Phone: 12-24-2024 Cognitive function Awake;Alert;Appropriat e [facility] Work Phone: 07-16-2022 Cognitive function Voice/Name [facility] Work Phone: 07-14-2022 Cognitive function Level Of Cons ciousness Awake;Alert;Appropriate;Follow s Commands [facility] Work Phone: Clinical Notes 07-14-2022 to 01-05-2025 Note Date & Type Note Facility 01-05-2025 Progress note [facility] 12-28-2024 Discharge summary Note Date/Time December 28, 2024 9:39am [facility] Medical Records Department [address] [place] [address] Instructions for Home/Discharge Instructions 12/28/24928 MR#: [id number] Acct: [id number] Name: SCARLETT LANDRY Rep #:[id number] : 1960 64 From: Baudilio Mitchell PCP: Sarah Physician,No Primary Status :ADM IN Discharge Instructions DC O2, CPAP, BIPAP needs Home O2 Discharge instructions: No Dressing / Incision Discharge Activity: Return to Normal Activity Weight Bearing Status: Weight bearing as tolerated Dressing / Incision Call your doctor if you observe: Fever of 101 or Higher, Coldness, Increased Pain, Numbness or Tingling, Change in Color, Inability to urinate, Inability to have a bowel movement, Shortness of breath, Dizziness, Fainting spells, Swellingin the ankles, Chest pain, Prolonged hiccupping, Increased palpitations (irregular heartbeat) and Calf discomfort Follow Up Care When: IN 2 WEEKS Test Results: Test results from this visit will be discussed in further detail at your follow-up appointment, if applicable. Discharge Plan Admission Admit Date/Time: 12/24/24 19:31 Attending Provider: Baudilio Castellanos Primary Care Provider: Sarah Physician,No Primary Consulting Providers: Abhi Chong Discharge Orders/Prescriptions Prescriptions: New losartan 50 mg Tablet 50 mg PO DAILY 30 Days Qty: 30 2RF atorvastatin 40 mg Tablet 40 mg PO QHS 30 Days Qty: 30 2RF spironolactone 25 mg Tablet 25 mg PO DAILY 30 Days Qty: 30 2RF Rx Instructions: Hold for serum potassium more than 5.0 metoprolol tartrate 50 mg Tablet 50 mg PO BID 30 Days Qty: 60 2RF aspirin 81 mg Tablet,Chewable 81 mg PO BREAKFAST 30 Days Qty: 30 2RF Eliquis 5 mg Tablet 5 mg PO BID 30 Days Qty: 60 2RF Changed furosemide [Lasix] 40 mg tablet 40 mg PO BID 30 Days Qty: 60 3RF Discontinued potassium chloride [Klor-Con M20] 20 mEq tablet,ER particles/crystals See Rx Instructions .ROUTE .COMPLEX Qty: 90 3RF Dose Instruction: TAKE 1 TABLET BY MOUTH EVERY DAY FOR 60 DAYS Rx Instructions: TAKE 1 TABLET BY MOUTH EVERY DAY FOR 60 DAYS lisinopril 10 mg tablet 10 mg PO BID Qty: 180 3RF carvedilol 6.25 mg tablet 6.25 mg PO BID Qty: 180 3RF Referrals / Follow Up: Care Physician,No Primary [Primary Care Provider] Joseph Johnson MD [Med Staff - Active Staff, Cardiology] - Within 2 Weeks Referral Note: Follow-up in 1 to 2 weeks Disposition Disposition (needs filled in before D/C Order can be placed): Home, Self Care 12/28/24938<Electronically signed by Baudilio Castellanos MD>Baudilio Castellanos MD CC: Dr. Abhi Chong, DO; No Primary Care Physician ~ Signed [facility] Work Phone: 1(102) 472-668309-17-2025 Discharge summary Author Baudilio Castellanos [facility] Note Date/Time December 28, 2024 9:52am [facility] Medical Records Department [address] [place] [address] Discharge Summary 12/28/2439 MR#: [id number] Acct: [id number] Name: SCARLETT LANDRY Rep #:[id number] : 1960 64 From: Baudilio Mitchell PCP: Care Physician,No Primary Status :ADM IN Location: [place] [id number] Providers Date of Admission: 12/24/24 Date of Discharge: 12/28/24 Primary Care Physician: No Primary Care Phys Consultations 12/25/24 08:00 Consult: Cardiology Routine Consulting Provider: Patric Colmenares Reason for Consult: A flutter, CHF exa, dyspnea EMERGENT Consult: No MD Notified: Yes Date Notified: 12/25/24 Time Notified: 08:00 Method of Notification: ED Physician Initiated Reason For Visit: NSTEMI WITH CHF Diagnosis Discharge Diagnosis (1) Acute exacerbation of CHF (congestive heart failure): Status: Chronic Code(s): I50.9 - Heart failure, unspecified (2) Atrial flutter with rapid ventricular response: Status: Acute Code(s): I48.92 - Unspecified atrial flutter Plan Patient is a 64-year-old male who presented [facility] ED on 12/24/2024 with exertional dyspnea and lower extremity swelling. 1. 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 Pulse ox 100% on room air. IV heparin drip ? Admit under inpatient status to PCU. Cardiology consulted. History of severeHFrEF with dilated cardiomyopathy in July 2022 with EF 15 to 20%. Stress test then was negative. Had good recovery with medical therapy with last echo in October 2022 with EF 50%. Mildly dilated LV, concentric LVH. Normal right ventricle. LA severely enlarged. Right atrium severely enlarged. Mild dilatedcardiomyopathy last follow-up with Dr. Miller 2 years Plan: IV Cardizem drip. Hold home Coreg and lisinopril. 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 12/26: 2D echo done reported EF 5%, stage I diastolic dysfunction, moderately dilated LV with severe global systolic dysfunction. Mild global RV systolic dysfunction. Mild biatrial dilatation. 1-2+ MR, 1+ TR. Mild dilated aortic root. Lexiscan stress test reported no reversible perfusion defect, fixed apical defect. Occasional PVCs EF calculated through Cardiolite 20%. 12/27: Discussed with senior salesforce developer. Continue guideline directed medical therapy as per patient hemodynamic tolerates. After 4 weeks of anticoagulation, plan for amiodarone radiation 400 mg twice daily for 10 days followed by 200 mg daily. After amiodarone is fully loaded and patient been on uninterrupted Eliquis for 6 to 8 weeks, cardioversion would be indicated if patient remains Vic-fib. 12/28: Patient is doing good on baseline. Pulse ox 98% on room air. Heart rate blood pressure controlled. Still in A-fib. Patient given prescription for babyaspirin, Eliquis, losartan, metoprolol, atorvastatin and furosemide and spironolactone. Potassium supplement discontinued. Her previous medications lisinopril and carvedilol were discontinued. Advised follow-up with senior salesforce developer Dr. Joseph Johnson in 7 to 10 days. Home oxygen qualification testordered 2. 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 Troponin 60> 59, 70 EKG showed slow atrial flutter with rate in the 120s with 2:1 conduction. nocturnist shows a flutter with variable rate. BNP 7117. Per cardiology,patient initiated on heparin drip and will keep n.p.o. overnight for possible left heart cath tomorrow. Echo ordered. 12/25: Continue IV Lasix 40 mg twice daily, monitor daily BMP and urine output. 12/26: Discussed with Dr. Johnson. Continue Lasix 40 mg IV twice daily today and then changed to 40 IV daily from tomorrow. 12/27: Spironolactone added. Could not afford Entresto or Jardiance in the past. Advised follow-up with [facility] in 7 to 10 days after discharge. 2. CKD stage IIIa ? Creatinine 1.37 on admit, baseline 1.2-1.3. Monitor daily BMP and urine output while on IV Lasix as above. 12/25, BUN/creatinine 27/1.4. 12/26: Creatinine is improving 12/28 creatinine is on baseline 1.29. 3. Class II obesity with suspected DELVIN ? BMI 38 on admit. Complicates hospital course and care. Patient with risk factors and history that seem consistent with DELVIN. Cardiology recommended sleepstudy for further evaluation in 2022 but patient never had this done. Strongly recommend outpatient sleep study for further evaluation shortly after discharge. 4. History of alcohol abuse ? History of heavy alcohol use prior to hospitalization in 2022 as above. Patient reports very minimal alcohol use since then. Alcohol level 0 on admit. DVT prophylaxis: Not indicated, on heparin drip CODE STATUS: Full code, verified Discharge medication reconciliation done. Discharge follow-up instructions completed. Discharge process discussed with the patient and all questions wereanswered to patient's satisfaction. Follow with PCP in 1 to 2 weeks Total time spent, exact 35 minutes on discharge meds reconciliation, examination, coordination of care with nurses and ancillary staff, review of imaging and blood test and discussion with the patient on follow-up instructions. Laboratory Results 12/27/24 05:04: WBC 9.6, RBC 4.70, Hgb 14.2, Hct 45.0, MCV 95.7 H, MCH 30.2, MCHC 31.6 L, RDW Std Deviation 50.0 H, RDW Coeff of Paz 14.3, Plt Count 231, MPV 11.0, Immature Gran % (Auto) 0.400, Neut % (Auto) 60.7, Lymph % (Auto) 23.6, Jennings % (Auto) 12.7 H, Eos % (Auto) 2.3, Baso % (Auto) 0.3, Absolute Neuts (auto) 5.8, Absolute Lymphs (auto) 2.26, Nucleated RBC % 0, Sodium 141, Potassium 4.1, Chloride 101, Carbon Dioxide 28.7, Anion Gap 12, BUN 31 H, Creatinine 1.37 H, Estim Creat Clear Calc 71.47, Est GFR (MDRD) Non-Af 58 L, BUN/Creatinine Ratio 22.4 H, Glucose 99, Calcium 9.7 Medications at Discharge Home Medications apixaban 5 mg tablet (Eliquis) 5 mg PO BID 30 days #60 tabs 12/28/24 aspirin 81 mg chewable tablet 81 mg PO BREAKFAST 30 days #30 tabs 12/28/24 atorvastatin 40 mg tablet 40 mg PO QHS 30 days #30 tabs 12/28/24 furosemide 40 mg tablet (Lasix) 40 mg PO BID 30 days #60 tabs 12/28/24 losartan 50 mg tablet 50 mg PO DAILY 30 days #30 tabs 12/28/24 metoprolol tartrate 50 mg tablet 50 mg PO BID 30 days #60 tabs 12/28/24 spironolactone 25 mg tablet 25 mg PO DAILY 30 days #30 tabs 12/28/24 Physical Exam Narrative Seen and examined Shortness of breath is better. Was admitted with exertional dyspnea and orthopnea.shortness of breath is better. Chest pain has resolved. Leg swelling is much improved Physical exam General: Alert, Oriented x3, Cooperative. BMI 34.8 kg/m?. Mild obesity HEENT: Atraumatic, PERRLA, EOMI, Normocephalic. Oral: No Gingival or Mucosal Lesions/ Ulcerations Neck: Supple, No JVD, Negative Carotid Bruits Chest wall/Lungs: Air entry diminished in bilateral lungs. No crepitation/rhonchi Cardiovascular: Atrial flutter on monitor e, Normal S1,S2, systolic murmur Abdomen: Bowel Sounds Present, Soft, Non Tender, Non-Distended : No dysuria. No renal angle tenderness. No suprapubic tenderness. Extremities: 1+ below-knee pedal edema, Capillary Refill Less than 3 Seconds Skin: No rashes, No breakdown Musculoskeletal: No Tenderness to Palpation of Joints or Extremities Neurological: Cranial nerves II-XII grossly intact, DTR 2+/4. No acute focal neurological deficit. Psych/Mental Status: Normal Affect, Appropriate. Weight / BMI Weight Weight: 263 lb 3.711 oz Body Mass Index (BMI) 37.6 ABG / Lab / Microbiology Data 12/27/24 05:04 12/28/24 05:40 Laboratory: Laboratory Results - last 24 hr 12/28/24 05:40: Sodium 139, Potassium 4.4, Chloride 100, Carbon Dioxide 25.9, Anion Gap 14, BUN 31 H, Creatinine 1.29 H, Estim Creat Clear Calc 75.91, Est GFR(MDRD) Non-Af 62, BUN/Creatinine Ratio 24.1 H, Glucose 95, Calcium 9.9, NT pro BNP II 4743 H D/C Instructions Weight Bearing Status: Weight bearing as tolerated Call your doctor if you observe: Fever of 101 or Higher, Coldness, Increased Pain, Numbness or Tingling, Change in Color, Inability to urinate, Inability to have a bowel movement, Shortness of breath, Dizziness, Fainting spells, Swellingin the ankles, Chest pain, Prolonged hiccupping, Increased palpitations (irregular heartbeat) and Calf discomfort DC O2, CPAP, BIPAP Needs Home O2 Discharge instructions: No When: IN 2 WEEKS Meaningful Use Info Meaningful Use Meaningful Use Diagnoses (Choose all that apply): None applicable and CHF CHF EMIL/ARB ordered at discharge?: Yes Documented LVEF (%): 5 Discharge Plan Admission Admit Date/Time: 12/24/24 19:31 Attending Provider: Baudilio Castellanos Primary Care Provider: Care Physician,No Primary Consulting Providers: Abhi Chong Discharge Orders/Prescriptions Prescriptions: New losartan 50 mg Tablet 50 mg PO DAILY 30 Days Qty: 30 2RF atorvastatin 40 mg Tablet 40 mg PO QHS 30 Days Qty: 30 2RF spironolactone 25 mg Tablet 25 mg PO DAILY 30 Days Qty: 30 2RF Rx Instructions: Hold for serum potassium more than 5.0 metoprolol tartrate 50 mg Tablet 50 mg PO BID 30 Days Qty: 60 2RF aspirin 81 mg Tablet,Chewable 81 mg PO BREAKFAST 30 Days Qty: 30 2RF Eliquis 5 mg Tablet 5 mg PO BID 30 Days Qty: 60 2RF Changed furosemide [Lasix] 40 mg tablet 40 mg PO BID 30 Days Qty: 60 3RF Discontinued potassium chloride [Klor-Con M20] 20 mEq tablet,ER particles/crystals See Rx Instructions .ROUTE .COMPLEX Qty: 90 3RF Dose Instruction: TAKE 1 TABLET BY MOUTH EVERY DAY FOR 60 DAYS Rx Instructions: TAKE 1 TABLET BY MOUTH EVERY DAY FOR 60 DAYS lisinopril 10 mg tablet 10 mg PO BID Qty: 180 3RF carvedilol 6.25 mg tablet 6.25 mg PO BID Qty: 180 3RF Referrals / Follow Up: Joseph Johnson MD [Med Staff - Active Staff, Cardiology] - Within 2 Weeks Referral Note: Follow-up in 1 to 2 weeks Care Physician,No Primary [Primary Care Provider, Medical] Disposition Disposition (needs filled in before D/C Order can be placed): Home, Self Care Charges/Coding Visit Charges Inpatient E&M: 15742 Disch Hosp >30min 12/28/24 0952 <Electronically signed by Baudilio Castellanos MD> Cosigner Signature (if applicable): CC: Dr. Joseph Johnson MD; Dr. Baudilio Castellanos MD; No Primary Care Physician~ Signed [facility] Work Phone: [phone] 498-941109-17-2025 Discharge summary [facility] Medical Records Department [facility] [place] [address] Discharge Summary 12/28/24 0939 MR#: [id number] Acct: [id number] Name: SCARLETT LANDRY Rep #:[id number] : 1960 64 From: Baudilio Mitchell PCP: Care Physician,No Primary Status :ADM IN Location: [place] [address] Providers Date of Admission: 12/24/24 Date of Discharge: 12/28/24 Primary Care Physician: No Primary Care Phys Consultations 12/25/24 08:00 Consult: Cardiology Routine Consulting Provider: Patric Colmenares Reason for Consult: A flutter, CHF exa, dyspnea EMERGENT Consult: No MD Notified: Yes Date Notified: 12/25/24 Time Notified: 08:00 Method of Notification: ED Physician Initiated Reason For Visit: NSTEMI WITH CHF Diagnosis Discharge Diagnosis (1) Acute exacerbation of CHF (congestive heart failure): Status: Chronic Code(s): I50.9 - Heart failure, unspecified (2) Atrial flutter with rapid ventricular response: Status: Acute Code(s): I48.92 - Unspecified atrial flutter Plan Patient is a 64-year-old male who presented [facility] ED on 12/24/2024 with exertional dyspnea and lower extremity swelling. 1. 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 Pulse ox 100% on room air. IV heparin drip ? Admit under inpatient status to PCU. Cardiology consulted. History of severeHFrEF with dilated cardiomyopathy in July 2022 with EF 15 to 20%. Stress test then was negative. Had good recovery with medical therapy with last echo in October 2022 with EF 50%. Mildly dilated LV, concentric LVH. Normal right ventricle. LA severely enlarged. Right atrium severely enlarged. Mild dilatedcardiomyopathy last follow-up with Dr. Miller 2 years Plan: IV Cardizem drip. Hold home Coreg and lisinopril. 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 12/26: 2D echo done reported EF 5%, stage I diastolic dysfunction, moderately dilated LV with severeglobal systolic dysfunction. Mild global RV systolic dysfunction. Mild biatrial dilatation. 1-2+ MR, 1+ TR. Mild dilated aortic root. Lexiscan stress test reported no reversible perfusion defect, fixed apical defect. Occasional PVCs EF calculated through Cardiolite 20%. 12/27: Discussed with senior salesforce developer. Continue guideline directed medical therapy as per patient hemodynamic tolerates. After 4 weeks of anticoagulation, plan for amiodarone radiation 400 mg twice dailyfor 10 days followed by 200 mg daily. After amiodarone is fully loaded and patient been on uninterrupted Eliquis for 6 to 8 weeks, cardioversion would be indicated if patient remains Vic-fib. 12/28: Patient is doing good on baseline. Pulse ox 98% on room air. Heart rate blood pressure controlled. Still in A-fib. Patient given prescription for babyaspirin, Eliquis, losartan, metoprolol, atorvastatin and furosemide and spironolactone. Potassium supplement discontinued. Her previous medications lisinopril and carvedilol were discontinued. Advised follow-up with senior salesforce developer Dr. Joseph Johnson in 7 to 10 days. Home oxygen qualification testordered 2. 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 Troponin 60> 59, 70 EKG showed slow atrial flutter with rate in the 120s with 2:1 conduction. nocturnist shows a flutter with variable rate. BNP 7117. Per cardiology,patient initiated on heparin drip and will keep n.p.o. overnight for possible left heart cath tomorrow. Echo ordered. 12/25: Continue IV Lasix 40 mg twice daily, monitor daily BMP and urine output. 12/26: Discussed with Dr. Johnson. Continue Lasix 40 mg IV twice daily today and then changed to 40 IV daily from tomorrow. 12/27: Spironolactone added. Could not afford Entresto or Jardiance in the past. Advised follow-up with [facility] [facility] in 7 to 10 days after discharge. 2. CKD stage IIIa ? Creatinine 1.37 on admit, baseline 1.2-1.3. Monitor daily BMP and urine output while on IV Lasix as above. 12/25, BUN/creatinine 27/1.4. 12/26: Creatinine is improving 12/28 creatinine is on baseline 1.29. 3. Class II obesity with suspected DELVIN ? BMI 38 on admit. Complicates hospital course and care. Patient with risk factors and history thatseem consistent with DELVIN. Cardiology recommended sleepstudy for further evaluation in 2022 but patient never had this done. Strongly recommend outpatient sleep study for further evaluation shortly after discharge. 4. History of alcohol abuse ? History of heavy alcohol use prior to hospitalization in 2022 as above. Patient reports very minimal alcohol use since then. Alcohol level 0 on admit. DVT prophylaxis: Not indicated, on heparin drip CODE STATUS: Full code, verified Discharge medication reconciliation done. Discharge follow-up instructions completed. Discharge process discussed with the patient and all questions wereanswered to patient's satisfaction. Follow with PCP in 1 to 2 weeks Total time spent, exact 35 minutes on discharge meds reconciliation, examination, coordination of care with nurses and ancillary staff, review of imaging and blood test and discussion with the patient on follow-up instructions. Laboratory Results 12/27/24 05:04: WBC 9.6, RBC 4.70, Hgb 14.2, Hct 45.0, MCV 95.7 H, MCH 30.2, MCHC 31.6 L, RDW Std Deviation 50.0 H, RDW Coeff of Paz 14.3, Plt Count 231, MPV 11.0, Immature Gran % (Auto) 0.400, Neut % (Auto) 60.7, Lymph % (Auto) 23.6, Jennings % (Auto) 12.7 H, Eos % (Auto) 2.3, Baso % (Auto) 0.3, Absolute Neuts (auto) 5.8, Absolute Lymphs (auto) 2.26, Nucleated RBC % 0, Sodium 141, Potassium 4.1, Chloride 101, Carbon Dioxide 28.7, Anion Gap 12, BUN 31 H, Creatinine 1.37 H, Estim Creat Clear Calc 71.47, Est GFR (MDRD) Non-Af 58 L, BUN/Creatinine Ratio 22.4 H, Glucose 99, Calcium 9.7 Medications at Discharge Home Medications apixaban 5 mg tablet (Eliquis) 5 mg PO BID 30 days #60 tabs 12/28/24 aspirin 81 mg chewable tablet 81 mg PO BREAKFAST 30 days #30 tabs 12/28/24 atorvastatin 40 mg tablet 40 mg PO QHS 30 days #30 tabs 12/28/24 furosemide 40 mg tablet (Lasix) 40 mg PO BID 30 days #60 tabs 12/28/24 losartan 50 mg tablet 50 mg PO DAILY 30 days #30 tabs 12/28/24 metoprolol tartrate 50 mg tablet 50 mg PO BID 30 days #60 tabs 12/28/24 spironolactone 25 mg tablet 25 mg PO DAILY 30 days #30 tabs 12/28/24 Physical Exam Narrative Seen and examined Shortness of breath is better. Was admitted with exertional dyspnea and orthopnea.shortness of breath is better. Chest pain has resolved. Leg swelling is much improved Physical exam General: Alert, Oriented x3, Cooperative. BMI 34.8 kg/m?. Mild obesity HEENT: Atraumatic, PERRLA, EOMI, Normocephalic. Oral: No Gingival or Mucosal Lesions/ Ulcerations Neck: Supple, No JVD, Negative Carotid Bruits Chest wall/Lungs: Air entry diminished in bilateral lungs. No crepitation/rhonchi Cardiovascular: Atrial flutter on monitor e, Normal S1,S2, systolic murmur Abdomen: Bowel Sounds Present, Soft, Non Tender, Non-Distended : No dysuria. No renal angle tenderness. No suprapubic tenderness. Extremities: 1+ below-knee pedal edema, Capillary Refill Less than 3 Seconds Skin: No rashes, No breakdown Musculoskeletal: No Tenderness to Palpation of Joints or Extremities Neurological: Cranial nerves II-XII grossly intact, DTR 2+/4. No acute focal neurological deficit. Psych/Mental Status: Normal Affect, Appropriate. Weight / BMI Weight Weight: 263 lb 3.711 oz Body Mass Index (BMI) 37.6 ABG / Lab / Microbiology Data 12/27/24 05:04 12/28/24 05:40 Laboratory: Laboratory Results - last 24 hr 12/28/24 05:40: Sodium 139, Potassium 4.4, Chloride 100, Carbon Dioxide 25.9, Anion Gap 14, BUN 31 H, Creatinine 1.29 H, Estim Creat Clear Calc 75.91, Est GFR(MDRD) Non-Af 62, BUN/Creatinine Ratio 24.1 H, Glucose 95, Calcium 9.9, NT pro BNP II 4743 H D/C Instructions Weight Bearing Status: Weight bearing as tolerated Call your doctor if you observe: Fever of 101 or Higher, Coldness, Increased Pain, Numbness or Tingling, Change in Color, Inability to urinate, Inability to have a bowel movement, Shortness of breath, Dizziness, Fainting spells, Swellingin the ankles, Chest pain, Prolonged hiccupping, Increased palpitations (irregular heartbeat) and Calf discomfort DC O2, CPAP, BIPAP Needs Home O2 Discharge instructions: No When: IN 2 WEEKS Meaningful Use Info Meaningful Use Meaningful Use Diagnoses (Choose all that apply): None applicable and CHF CHF EMIL/ARB ordered at discharge?: Yes Documented LVEF (%): 5 Discharge Plan Admission Admit Date/Time: 12/24/24 19:31 Attending Provider: Baudilio Castellanos Primary Care Provider: Care Physician,No Primary Consulting Providers: Abhi Chong Discharge Orders/Prescriptions Prescriptions: New losartan 50 mg Tablet 50 mg PO DAILY 30 Days Qty: 30 2RF atorvastatin 40 mg Tablet 40 mg PO QHS 30 Days Qty: 30 2RF spironolactone 25 mg Tablet 25 mg PO DAILY 30 Days Qty: 30 2RF Rx Instructions: Hold for serum potassium more than 5.0 metoprolol tartrate 50 mg Tablet 50 mg PO BID 30 Days Qty: 60 2RF aspirin 81 mg Tablet,Chewable 81 mg PO BREAKFAST 30 Days Qty: 30 2RF Eliquis 5 mg Tablet 5 mg PO BID 30 Days Qty: 60 2RF Changed furosemide [Lasix] 40 mg tablet 40 mg PO BID 30 Days Qty: 60 3RF Discontinued potassium chloride [Klor-Con M20] 20 mEq tablet,ER particles/crystals See Rx Instructions .ROUTE .COMPLEX Qty: 90 3RF Dose Instruction: TAKE 1 TABLET BY MOUTH EVERY DAY FOR 60 DAYS Rx Instructions: TAKE 1 TABLET BY MOUTH EVERY DAY FOR 60 DAYS lisinopril 10 mg tablet 10 mg PO BID Qty: 180 3RF carvedilol 6.25 mg tablet 6.25 mg PO BID Qty: 180 3RF Referrals / Follow Up: Joseph Johnson MD [Med Staff - Active Staff, Cardiology] - Within 2 Weeks Referral Note: Follow-up in 1 to 2 weeks Care Physician,No Primary [Primary Care Provider, Medical] Disposition Disposition (needs filled in before D/C Order can be placed): Home, Self Care Charges/Coding Visit Charges Inpatient E&M: 68001 Disch Hosp >30min 12/28/24 0952 Cosigner Signature (if applicable): CC: Dr. Joesph Johnson MD; Dr. Baudilio Castellanos MD; No Primary Care Physician~ Signed [facility]09-17-2025 Discharge summary [facility] Medical Records Department [address] [place] [address] Instructions for Home/Discharge Instructions 12/28/24 0929 MR#: [id number] Acct: [id number] Name: SCARLETT LANDRY Rep #:[id number] : 1960 64 From: Baudilio Mitchell PCP: Care Physician,No Primary Status :ADM IN Discharge Instructions DC O2, CPAP, BIPAP needs Home O2 Discharge instructions: No Dressing / Incision Discharge Activity: Return to Normal Activity Weight Bearing Status: Weight bearing as tolerated Dressing / Incision Call your doctor if you observe: Fever of 101 or Higher, Coldness, Increased Pain, Numbness or Tingling, Change in Color, Inability to urinate, Inability to have a bowel movement, Shortness of breath, Dizziness, Fainting spells, Swellingin the ankles, Chest pain, Prolonged hiccupping, Increased palpitations (irregular heartbeat) and Calf discomfort Follow Up Care When: IN 2 WEEKS Test Results: Test results from this visit will be discussed in further detail at your follow- up appointment, if applicable. Discharge Plan Admission Admit Date/Time: 12/24/24 19:31 Attending Provider: Baudilio Castellanos Primary Care Provider: Care Physician,No Primary Consulting Providers: Abhi Chong Discharge Orders/Prescriptions Prescriptions: New losartan 50 mg Tablet 50 mg PO DAILY 30 Days Qty: 30 2RF atorvastatin 40 mg Tablet 40 mg PO QHS 30 Days Qty: 30 2RF spironolactone 25 mg Tablet 25 mg PO DAILY 30 Days Qty: 30 2RF Rx Instructions: Hold for serum potassium more than 5.0 metoprolol tartrate 50 mg Tablet 50 mg PO BID 30 Days Qty: 60 2RF aspirin 81 mg Tablet,Chewable 81 mg PO BREAKFAST 30 Days Qty: 30 2RF Eliquis 5 mg Tablet 5 mg PO BID 30 Days Qty: 60 2RF Changed furosemide [Lasix] 40 mg tablet 40 mg PO BID 30 Days Qty: 60 3RF Discontinued potassium chloride [Klor-Con M20] 20 mEq tablet,ER particles/crystals See Rx Instructions .ROUTE .COMPLEX Qty: 90 3RF Dose Instruction: TAKE 1 TABLET BY MOUTH EVERY DAY FOR 60 DAYS Rx Instructions: TAKE 1 TABLET BY MOUTH EVERY DAY FOR 60 DAYS lisinopril 10 mg tablet 10 mg PO BID Qty: 180 3RF carvedilol 6.25 mg tablet 6.25 mg PO BID Qty: 180 3RF Referrals / Follow Up: Care Physician,No Primary [Primary Care Provider] Joseph Johnson MD [Med Staff - Active Staff, Cardiology] - Within 2 Weeks Referral Note: Follow-up in 1 to 2 weeks Disposition Disposition (needs filled in before D/C Order can be placed): Home, Self Care 12/28/24 0939Baudilio Castellanos MD CC: Dr. Abhi Chong, DO; No Primary Care Physician ~ Signed [facility]09-17-2025 [facility] Medical Records Department [address] [place] [address] Discharge Summary 12/28/24 0939 MR#: [id number] Acct: [id number] Name: SCARLETT LANDRY Rep #: [id number] : 1960 64 From: Baudilio Castellanos MD PCP: Care Physician,No Primary Status:ADM IN Location: [place] [address] Providers Date of Admission: 12/24/24 Date of Discharge: 12/28/24 Primary Care Physician: No Primary Care Phys Consultations 12/25/24 08:00 Consult: Cardiology Routine Consulting Provider: Patric Colmenares Reason for Consult: A flutter, CHF exa, dyspnea EMERGENT Consult: No MD Notified: Yes Date Notified: 12/25/24 Time Notified: 08:00 Method of Notification: ED Physician Initiated Reason For Visit: NSTEMI WITH CHF Diagnosis Discharge Diagnosis (1) Acute exacerbation of CHF (congestive heart failure): Status: Chronic Code(s): I50.9 - Heart failure, unspecified (2) Atrial flutter with rapid ventricular response: Status: Acute Code(s): I48.92 - Unspecified atrial flutter Plan Patient is a 64-year-old male who presented [facility] ED on 12/24/2024 with exertional dyspnea and lower extremity swelling. 1. 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 Pulse ox 100% on room air. IV heparin drip ??? Admit under inpatient status to PCU. Cardiology consulted. History of severe HFrEF with dilated cardiomyopathy in July 2022 with EF 15 to 20%. Stress test then was negative. Had good recovery with medical therapy with last echo in October 2022 with EF 50%. Mildly dilated LV, concentric LVH. Normal right ventricle. LA severely enlarged. Right atrium severely enlarged. Mild dilated cardiomyopathy last follow-up with Dr. Miller 2 years Plan: IV Cardizem drip. Hold home Coreg and lisinopril. 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 12/26: 2D echo done reported EF 5%, stage I diastolic dysfunction, moderately dilated LV with severe global systolic dysfunction. Mild global RV systolic dysfunction. Mild biatrial dilatation. 1-2+ MR, 1+ TR. Mild dilated aortic root. Lexiscan stress test reported no reversible perfusion defect, fixed apical defect. Occasional PVCs EF calculated through Cardiolite 20%. 12/27: Discussed with senior salesforce developer. Continue guideline directed medical therapy as per patient hemodynamic tolerates. After 4 weeks of anticoagulation, plan for amiodarone radiation 400 mg twice daily for 10 days followed by 200 mg daily. After amiodarone is fully loaded and patient been on uninterrupted Eliquis for 6 to 8 weeks, cardioversion would be indicated if patient remains in A- fib. 12/28: Patient is doing good on baseline. Pulse ox 98% on room air. Heart rate blood pressure controlled. Still in A-fib. Patient given prescription for baby aspirin, Eliquis, losartan, metoprolol, atorvastatin and furosemide and spironolactone. Potassium supplement discontinued. Her previous medications lisinopril and carvedilol were discontinued. Advised follow-up with senior salesforce developer Dr. Joseph Johnson in 7 to 10 days. Home oxygen qualification test ordered 2. CHF exacerbation secondary to tachycardia induced cardiomyopathy in setting of new onset A- fib/flutter, possibly due to untreated DELVIN as below. Troponin 60 > 59, 70 EKG showed slow atrial flutter with rate in the 120s with 2:1 conduction. nocturnist shows a flutter with variable rate. BNP 7117. Per cardiology, patient initiated on heparin drip and will keep n.p.o. overnight for possible left heart cath tomorrow. Echo ordered. 12/25: Continue IV Lasix 40 mg twice daily, monitor daily BMP and urine output. 12/26: Discussed with Dr. Johnson. Continue Lasix 40 mg IV twice daily today and then changed to 40 IV daily from tomorrow. 12/27: Spironolactone added. Could not afford Entresto or Jardiance in the past. Advised follow-up with [facility] in 7 to 10 days after discharge. 2. CKD stage IIIa ??? Creatinine 1.37 on admit, baseline 1.2-1.3. Monitor daily BMP and urine output while on IV Lasix as above. 12/25, BUN/creatinine 27/1.4. 12/26: Creatinine is improving 12/28 creatinine is on baseline 1.29. 3. Class II obesity with suspected DELVIN ??? BMI 38 on admit. Complicates hospital course and care. Patient with risk factors and history that seem consistent with DELVIN. Cardiology recommended sleep study for further evaluation in 2022 but patient never had this done. Strongly recommend outpatient sleep study for further evaluation shortly after discharge. 4. History of alcohol abuse ??? History of heavy alcohol use prior to hospitalization in 2022 as above. Patient reports very minimal alcohol use since then. Alcohol le (more content not included)...[facility]09-16-2025 Progress note Author Baudilio Castellanos [facility] Note Date/Time December 27, 2024 2:26pm [facility] Medical Records Department [address] [facility] [place] [address] Progress Note - Hospitalist 12/27/24 1422 MR#: [id number] Acct: [id number] Name: SCARLETT LANDRY YVAN Rep #:[id number] : 1960 64 From: Baudilio Mitchell PCP: Care Physician,No Primary Status :ADM IN Location: [place] [address] Reason for Visit Chief Complaint: Exertional dyspnea and lower extremity swelling Objective Data Objective Data Vital Signs: Vital Signs Temp Pulse Resp BP Pulse Ox O2 Del Method 97.1 F L 65 18 100/73 99 Room Air 12/27/24 09:59 12/27/24 10:01 12/27/24 09:59 12/27/24 12:57 12/27/24 09:59 12/27/24 09:59 Oxygen Delivery Method Room Air Weight: 263 lb 3.711 oz Body Mass Index (BMI) 37.6 Intake & Output: Intake and Output for Last 24 Hours 12/25/24 12/26/24 12/27/24 23:59 23:59 23:59 Intake Total 947.99 / 947.99 798.69 / 1038.69 240 / 240 Output Total 1550 / 2050 2750 / 4800 2550 / 2550 Balance -602.01 / -1102.01 -1951.31 / -3761.31 -2310 / -2310 Lab / Micro Data 12/27/24 05:04 12/27/24 05:04 Labs: Laboratory Results - last 24 hr 12/27/24 05:04: WBC 9.6, RBC 4.70, Hgb 14.2, Hct 45.0, MCV 95.7 H, MCH 30.2, MCHC 31.6 L, RDW Std Deviation 50.0 H, RDW Coeff of Paz 14.3, Plt Count 231, MPV 11.0, Immature Gran % (Auto) 0.400, Neut % (Auto) 60.7, Lymph % (Auto) 23.6, Jennings % (Auto) 12.7 H, Eos % (Auto) 2.3, Baso % (Auto) 0.3, Absolute Neuts (auto) 5.8, Absolute Lymphs (auto) 2.26, Nucleated RBC % 0, Sodium 141, Potassium 4.1, Chloride 101, Carbon Dioxide 28.7, Anion Gap 12, BUN 31 H, Creatinine 1.37 H, Estim Creat Clear Calc 71.47, Est GFR (MDRD) Non-Af 58 L, BUN/Creatinine Ratio 22.4 H, Glucose 99, Calcium 9.7 Rhythm Strip Rhythm Strip: A-fib Rate: 85 Physical Exam Narrative Seen and examined Shortness of breath is better. Was admitted with exertional dyspnea and orthopnea. He said he cannot lay supine because of his back and also shortness of breath. Chest pain has resolved. Leg swelling is better. Physical exam General: Alert, Oriented x3, Cooperative. BMI 34.8 kg/m?. Mild obesity HEENT: Atraumatic, PERRLA, EOMI, Normocephalic. Oral: No Gingival or Mucosal Lesions/ Ulcerations Neck: Supple, No JVD, Negative Carotid Bruits Chest wall/Lungs: Air entry diminished in bilateral lungs. No crepitation/rhonchi Cardiovascular: Atrial flutter on monitor e, Normal S1,S2, systolic murmur Abdomen: Bowel Sounds Present, Soft, Non Tender, Non-Distended : No dysuria. No renal angle tenderness. No suprapubic tenderness. Extremities: 2+ below-knee pedal edema, Capillary Refill Less than 3 Seconds Skin: No rashes, No breakdown Musculoskeletal: No Tenderness to Palpation of Joints or Extremities Neurological: Cranial nerves II-XII grossly intact, DTR 2+/4. No acute focal neurological deficit. Psych/Mental Status: Normal Affect, Appropriate. Assessment & Plan Assessment/Plan (1) Acute exacerbation of CHF (congestive heart failure): (2) Atrial flutter with rapid ventricular response: PLAN: Plan Patient is a 64-year-old male who presented [facility] ED on 12/24/2024 with exertional dyspnea and lower extremity swelling. 1. 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 Pulse ox 100% on room air. IV heparin drip ? Admit under inpatient status to PCU. Cardiology consulted. History of severeHFrEF with dilated cardiomyopathy in July 2022 with EF 15 to 20%. Stress test then was negative. Had good recovery with medical therapy with last echo in October 2022 with EF 50%. Mildly dilated LV, concentric LVH. Normal right ventricle. LA severely enlarged. Right atrium severely enlarged. Mild dilatedcardiomyopathy last follow-up with Dr. Miller 2 years Plan: IV Cardizem drip. Hold home Coreg and lisinopril. 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 12/26: 2D echo done reported EF 5%, stage I diastolic dysfunction, moderately dilated LV with severe global systolic dysfunction. Mild global RV systolic dysfunction. Mild biatrial dilatation. 1-2+ MR, 1+ TR. Mild dilated aortic root. Lexiscan stress test reported no reversible perfusion defect, fixed apical defect. Occasional PVCs EF calculated through Cardiolite 20%. 12/27: Discussed with senior salesforce developer. Continue guideline directed medical therapy as per patient hemodynamic tolerates. After 4 weeks of anticoagulation, plan for amiodarone radiation 400 mg twice daily for 10 days followed by 200 mg daily. After amiodarone is fully loaded and patient been on uninterrupted Eliquis for 6 to 8 weeks, cardioversion would be indicated if patient remains Vic-fib. 2. 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 Troponin 60> 59, 70 EKG showed slow atrial flutter with rate in the 120s with 2:1 conduction. nocturnist shows a flutter with variable rate. BNP 7117. Per cardiology,patient initiated on heparin drip and will keep n.p.o. overnight for possible left heart cath tomorrow. Echo ordered. 12/25: Continue IV Lasix 40 mg twice daily, monitor daily BMP and urine output. 12/26: Discussed with Dr. Johnson. Continue Lasix 40 mg IV twice daily today and then changed to 40 IV daily from tomorrow. 12/27: Spironolactone added. Could not afford Entresto or Jardiance in the past. Advised follow-up with [facility] in 7 to 10 days after discharge. 2. CKD stage IIIa ? Creatinine 1.37 on admit, baseline 1.2-1.3. Monitor daily BMP and urine output while on IV Lasix as above. 12/25, BUN/creatinine 27/1.4. 12/26: Creatinine is improving 3. Class II obesity with suspected DELVIN ? BMI 38 on admit. Complicates hospital course and care. Patient with risk factors and history that seem consistent with DELVIN. Cardiology recommended sleepstudy for further evaluation in 2022 but patient never had this done. Strongly recommend outpatient sleep study for further evaluation shortly after discharge. 4. History of alcohol abuse ? History of heavy alcohol use prior to hospitalization in 2022 as above. Patient reports very minimal alcohol use since then. Alcohol level 0 on admit. DVT prophylaxis: Not indicated, on heparin drip CODE STATUS: Full code, verified Expected disposition: Home, D Laboratory Results 12/27/24 05:04: WBC 9.6, RBC 4.70, Hgb 14.2, Hct 45.0, MCV 95.7 H, MCH 30.2, MCHC 31.6 L, RDW Std Deviation 50.0 H, RDW Coeff of Paz 14.3, Plt Count 231, MPV 11.0, Immature Gran % (Auto) 0.400, Neut % (Auto) 60.7, Lymph % (Auto) 23.6, Jennings % (Auto) 12.7 H, Eos % (Auto) 2.3, Baso % (Auto) 0.3, Absolute Neuts (auto) 5.8, Absolute Lymphs (auto) 2.26, Nucleated RBC % 0, Sodium 141, Potassium 4.1, Chloride 101, Carbon Dioxide 28.7, Anion Gap 12, BUN 31 H, Creatinine 1.37 H, Estim Creat Clear Calc 71.47, Est GFR (MDRD) Non-Af 58 L, BUN/Creatinine Ratio 22.4 H, Glucose 99, Calcium 9.7 Charges/Coding Visit Charges Inpatient E&M: 37346 Subs Hosp L2 12/27/24 1426 <Electronically signed by Baudilio Castellanos MD> Cosigner Signature (if applicable): CC: ~ Signed [facility] Work Phone: [phone] Progress note [facility] Medical Records Department [address] [place] [address] Progress Note - Hospitalist 12/27/24 1422 MR#: [id number] Acct: [id number] Name: SCARLETT LANDRY Rep #:[id number] : 1960 64 From: Baudilio Mitchell PCP: Care Physician,No Primary Status :ADM IN Location: [place] [address] Reason for Visit Chief Complaint: Exertional dyspnea and lower extremity swelling Objective Data Objective Data Vital Signs: Vital Signs Temp Pulse Resp BP Pulse Ox O2 Del Method 97.1 F L 65 18 100/73 99 Room Air 12/27/24 09:59 12/27/24 10:01 12/27/24 09:59 12/27/24 12:57 12/27/24 09:59 12/27/24 09:59 Oxygen Delivery Method Room Air Weight: 263 lb 3.711 oz Body Mass Index (BMI) 37.6 Intake & Output: Intake and Output for Last 24 Hours 12/25/24 12/26/24 12/27/24 23:59 23:59 23:59 Intake Total 947.99 / 947.99 798.69 / 1038.69 240 / 240 Output Total 1550 / 2050 2750 / 4800 2550 / 2550 Balance -602.01 / -1102.01 -1951.31 / -3761.31 -2310 / -2310 Lab / Micro Data 12/27/24 05:04 12/27/24 05:04 Labs: Laboratory Results - last 24 hr 12/27/24 05:04: WBC 9.6, RBC 4.70, Hgb 14.2, Hct 45.0, MCV 95.7 H, MCH 30.2, MCHC 31.6 L, RDW Std Deviation 50.0 H, RDW Coeff of Paz 14.3, Plt Count 231, MPV 11.0, Immature Gran % (Auto) 0.400, Neut % (Auto) 60.7, Lymph % (Auto) 23.6, Jennings % (Auto) 12.7 H, Eos % (Auto) 2.3, Baso % (Auto) 0.3, Absolute Neuts (auto) 5.8, Absolute Lymphs (auto) 2.26, Nucleated RBC % 0, Sodium 141, Potassium 4.1, Chloride 101, Carbon Dioxide 28.7, Anion Gap 12, BUN 31 H, Creatinine 1.37 H, Estim Creat Clear Calc 71.47, Est GFR (MDRD) Non-Af 58 L, BUN/Creatinine Ratio 22.4 H, Glucose 99, Calcium 9.7 Rhythm Strip Rhythm Strip: A-fib Rate: 85 Physical Exam Narrative Seen and examined Shortness of breath is better. Was admitted with exertional dyspnea and orthopnea. He said he cannot lay supine because of his back and also shortness of breath. Chest pain has resolved. Leg swelling is better. Physical exam General: Alert, Oriented x3, Cooperative. BMI 34.8 kg/m?. Mild obesity HEENT: Atraumatic, PERRLA, EOMI, Normocephalic. Oral: No Gingival or Mucosal Lesions/ Ulcerations Neck: Supple, No JVD, Negative Carotid Bruits Chest wall/Lungs: Air entry diminished in bilateral lungs. No crepitation/rhonchi Cardiovascular: Atrial flutter on monitor e, Normal S1,S2, systolic murmur Abdomen: Bowel Sounds Present, Soft, Non Tender, Non-Distended : No dysuria. No renal angle tenderness. No suprapubic tenderness. Extremities: 2+ below-knee pedal edema, Capillary Refill Less than 3 Seconds Skin: No rashes, No breakdown Musculoskeletal: No Tenderness to Palpation of Joints or Extremities Neurological: Cranial nerves II-XII grossly intact, DTR 2+/4. No acute focal neurological deficit. Psych/Mental Status: Normal Affect, Appropriate. Assessment & Plan Assessment/Plan (1) Acute exacerbation of CHF (congestive heart failure): (2) Atrial flutter with rapid ventricular response: PLAN: Plan Patient is a 64-year-old male who presented [facility] ED on 12/24/2024 with exertional dyspnea and lower extremity swelling. 1. 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 Pulse ox 100% on room air. IV heparin drip ? Admit under inpatient status to PCU. Cardiology consulted. History of severeHFrEF with dilated cardiomyopathy in July 2022 with EF 15 to 20%. Stress test then was negative. Had good recovery with medical therapy with last echo in October 2022 with EF 50%. Mildly dilated LV, concentric LVH. Normal right ventricle. LA severely enlarged. Right atrium severely enlarged. Mild dilatedcardiomyopathy last follow-up with Dr. Miller 2 years Plan: IV Cardizem drip. Hold home Coreg and lisinopril. 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 12/26: 2D echo done reported EF 5%, stage I diastolic dysfunction, moderately dilated LV with severeglobal systolic dysfunction. Mild global RV systolic dysfunction. Mild biatrial dilatation. 1-2+ MR, 1+ TR. Mild dilated aortic root. Lexiscan stress test reported no reversible perfusion defect, fixed apical defect. Occasional PVCs EF calculated through Cardiolite 20%. 12/27: Discussed with senior salesforce developer. Continue guideline directed medical therapy as per patient hemodynamic tolerates. After 4 weeks of anticoagulation, plan for amiodarone radiation 400 mg twice dailyfor 10 days followed by 200 mg daily. After amiodarone is fully loaded and patient been on uninterrupted Eliquis for 6 to 8 weeks, cardioversion would be indicated if patient remains Vic-fib. 2. 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 Troponin 60> 59, 70 EKG showed slow atrial flutter with rate in the 120s with 2:1 conduction. nocturnist shows a flutter with variable rate. BNP 7117. Per cardiology,patient initiated on heparin drip and will keep n.p.o. overnight for possible left heart cath tomorrow. Echo ordered. 12/25: Continue IV Lasix 40 mg twice daily, monitor daily BMP and urine output. 12/26: Discussed with Dr. Johnson. Continue Lasix 40 mg IV twice daily today and then changed to 40 IV daily from tomorrow. 12/27: Spironolactone added. Could not afford Entresto or Jardiance in the past. Advised follow-up with [facility] in 7 to 10 days after discharge. 2. CKD stage IIIa ? Creatinine 1.37 on admit, baseline 1.2-1.3. Monitor daily BMP and urine output while on IV Lasix as above. 12/25, BUN/creatinine 27/1.4. 12/26: Creatinine is improving 3. Class II obesity with suspected DELVIN ? BMI 38 on admit. Complicates hospital course and care. Patient with risk factors and history thatseem consistent with DELVIN. Cardiology recommended sleepstudy for further evaluation in 2022 but patient never had this done. Strongly recommend outpatient sleep study for further evaluation shortly after discharge. 4. History of alcohol abuse ? History of heavy alcohol use prior to hospitalization in 2022 as above. Patient reports very minimal alcohol use since then. Alcohol level 0 on admit. DVT prophylaxis: Not indicated, on heparin drip CODE STATUS: Full code, verified Expected disposition: Home, TBD Laboratory Results 12/27/24 05:04: WBC 9.6, RBC 4.70, Hgb 14.2, Hct 45.0, MCV 95.7 H, MCH 30.2, MCHC 31.6 L, RDW Std Deviation 50.0 H, RDW Coeff of Paz 14.3, Plt Count 231, MPV 11.0, Immature Gran % (Auto) 0.400, Neut % (Auto) 60.7, Lymph % (Auto) 23.6, Jennings % (Auto) 12.7 H, Eos % (Auto) 2.3, Baso % (Auto) 0.3, Absolute Neuts (auto) 5.8, Absolute Lymphs (auto) 2.26, Nucleated RBC % 0, Sodium 141, Potassium 4.1, Chloride 101, Carbon Dioxide 28.7, Anion Gap 12, BUN 31 H, Creatinine 1.37 H, Estim Creat Clear Calc 71.47, Est GFR (MDRD) Non-Af 58 L, BUN/Creatinine Ratio 22.4 H, Glucose 99, Calcium 9.7 Charges/Coding Visit Charges Inpatient E&M: 77864 Subs Hosp L2 12/27/24 1426 Cosigner Signature (if applicable): CC: ~ Signed [facility]09-16-2025 Progress note Author Joseph Johnson [facility] Note Date/Time December 27, 2024 8:52am [facility] Medical Records Department [address] [place] [address] Progress Note - Cardiology 12/27/24 0745 MR#: [id number] Acct: [id number] Name: SCARLETT LANDRY Rep #:[id number] : 1960 64 From: Joseph Johnson MD PCP: Care Physician,No Primary Status :ADM IN Location: [place] [address] Subjective Subjective Patient reports that his breathing is slightly better he sitting up in the chairat the bedside. Both of his lower extremities has been wrapped this morning he said prior to wrapping that he felt they had not improved in the edema. Objective Data Vital Signs: Vital Signs Temp Pulse Resp BP Pulse Ox O2 Del Method 97.5 F L 98 16 132/90 H 100 Room Air 12/27/24 04:00 12/27/24 04:00 12/27/24 04:00 12/27/24 04:00 12/27/24 04:00 12/27/24 04:00 Oxygen Delivery Method Room Air Weight: 263 lb 3.711 oz Body Mass Index (BMI) 37.6 Intake & Output: Intake and Output for Last 24 Hours 12/25/24 12/26/24 12/27/24 23:59 23:59 23:59 Intake Total 947.99 / 947.99 798.69 / 1038.69 240 / 240 Output Total 1550 / 2050 2750 / 4800 2550 / 2550 Balance -602.01 / -1102.01 -1951.31 / -3761.31 -2310 / -2310 Lab / Micro Data Attestation: I reviewed the patient's lab results. 12/27/24 05:04 12/27/24 05:04 Labs: Laboratory Results - last 24 hr 12/27/24 05:04: WBC 9.6, RBC 4.70, Hgb 14.2, Hct 45.0, MCV 95.7 H, MCH 30.2, MCHC 31.6 L, RDW Std Deviation 50.0 H, RDW Coeff of Paz 14.3, Plt Count 231, MPV 11.0, Immature Gran % (Auto) 0.400, Neut % (Auto) 60.7, Lymph % (Auto) 23.6, Jennings % (Auto) 12.7 H, Eos % (Auto) 2.3, Baso % (Auto) 0.3, Absolute Neuts (auto) 5.8, Absolute Lymphs (auto) 2.26, Nucleated RBC % 0, Sodium 141, Potassium 4.1, Chloride 101, Carbon Dioxide 28.7, Anion Gap 12, BUN 31 H, Creatinine 1.37 H, Estim Creat Clear Calc 71.47, Est GFR (MDRD) Non-Af 58 L, BUN/Creatinine Ratio 22.4 H, Glucose 99, Calcium 9.7 Rhythm Strip Rhythm Strip: A-fib Rate: 85 Cardiology Labs/Tests 12/27/24 05:04: WBC 9.6, RBC 4.70, Hgb 14.2, Hct 45.0, MCV 95.7 H, MCH 30.2, MCHC 31.6 L, Plt Count 231, MPV 11.0, Immature Gran % (Auto) 0.400, Neut % (Auto)60.7, Lymph % (Auto) 23.6, Jennings % (Auto) 12.7 H, Eos % (Auto) 2.3, Baso % (Auto)0.3, Absolute Neuts (auto) 5.8, Nucleated RBC % 0, Sodium 141, Potassium 4.1, Chloride 101, Carbon Dioxide 28.7, Anion Gap 12, BUN 31 H, Creatinine 1.37 H, Est GFR (MDRD) Non-Af 58 L, BUN/Creatinine Ratio 22.4 H, Glucose 99, Calcium 9.7 Rhythm: EKG: ECHO: Stress Test: Cardiac Cath: PCI: CT Surgery: Holter monitor: EPS: PPM: CXR: Chest CT Scan: Radiography Diagnostic Testing: Radiology Impression Echocardiogram 12/24/24 19:36 Interpretation Summary Moderately dilated left ventricle. Severe global LV systolic dysfunction. Estimated LVEF 5%. Stage I diastolic dysfunction. Mild global right ventricular systolic dysfunction. There is mild biatrial dilatation. Mild-Moderate (1-2+) mitral valve insufficiency. Mild (1+) tricuspid valve insufficiency. Mildly dilated aortic root. The study was technically difficult. Contrast injection was performed. Ordering Physician: Abhi Chong Performed By: Kathy Guzman RDCS Physical Exam Const alert and oriented x3 HEENT normocephalic Eyes EOMs intact bilaterally Neck no JVD Neck Narrative: Thick neck no JVD appreciated at 90 degrees. Chest inspection of chest normal Resp normal respiratory effort Auscultation: crackles bilateral base Cardio Cardio Narrative: Distant heart tones due to body habitus. Rate: regular rate Rhythm: abnormal rhythm regularly irregular Heart Sounds: S1 normal and S2 normal; Negative for click, gallop or murmur GI GI Narrative: Obese Extremity Extremity Narrative: Both lower extremities are wrapped. Neuro Neuro Narrative: Alert and oriented x 3 Psych mental status grossly normal Assessment & Plan Assessment/Plan (1) Congestive heart failure (CHF): QUALIFIERS: Heart failure chronicity: acute Heart failure type: systolic Qualified Code(s): I50.21 - Acute systolic (congestive) heart failure PLAN: Patient's echocardiogram shows an EF of 5-10%. His pharmacologic nuclear stress test estimated EF 20%. There was no evidence of ischemia on the stress test. There was noted apical thinning. The patient believes that he feels better today he is breathing easier. He is 100% saturated on room air seated in chair. Patient remains on IV furosemide. He is on losartan 25 mg daily metoprolol 50 mg twice daily and heart rate seems to have come under little better control. The etiology of his declining LV function from approximately 50% by his report from 2 years ago to now 5 to 10% is probably multifactorial. There may be some segmental abnormality at the apex but overall there is global LV dysfunction andthis may be related to his tachycardia. These symptoms started about 6 weeks ago when he was diagnosed with influenza A and probably represents the initiation of his tachyarrhythmia. At this point in time the plan is to maintain the patient on oral anticoagulation therapy for 4 to 6 weeks will continue rate control with metoprolol 50 mg twice daily and if he does not convert to sinus rhythm would consider direct-current cardioversion after 6?8 weeks of oral anticoagulation therapy and amiodarone. We will add amiodarone after 4 weeks of oral anticoagulation as an ambulatory outpatient load prior to direct-current cardioversion. (2) A-fib: QUALIFIERS: Atrial fibrillation type: paroxysmal Qualified Code(s): I48.0 - Paroxysmal atrial fibrillation PLAN: At this point in time the plan is to maintain the patient on oral anticoagulation therapy for 4 to 6 weeks will continue rate control with metoprolol 50 mg twice daily and if he does not convert to sinus rhythm would consider direct-current cardioversion after 6?8 weeks of oral anticoagulation therapy and amiodarone. We will add amiodarone after 4 weeks of oral anticoagulation as an ambulatory outpatient load prior to direct-current cardioversion. (3) NSTEMI (non-ST elevated myocardial infarction): PLAN: Patient does not appear to have a type I non-STEMI this appears to be demand type ischemia. I do not feel that further invasive evaluation is indicated at this point in time the pharmacologic nuclear stress test did not show any active ischemia. PLAN: Plan 1. Continue to titrate guideline directed medical therapy as blood pressure andheart rate tolerate. Will add spironolactone today. 2. The patient is not a candidate for Jardiance or Entresto as he was unable toafford it in the past. 3. Patient should be follow-up in the [facility] office 7 to 10 days after discharge. 4. After 4 weeks of oral anticoagulation therapy amiodarone will be added as a loading dose 400 mg twice daily for 10 days followed by 200 mg daily. 5. After amiodarone is fully loaded and the patient's been on uninterrupted Eliquis for 6-8 weeks direct-current cardioversion would be indicated if he remains in atrial fibs. 6. Following attempted jewish of sinus rhythm and maximally tolerated guideline directed medical therapy for LV dysfunction the patient will be reevaluated with limited echo. 7. Given the patient's left bundle branch block if his EF remains less than 35%he would be a candidate for consideration for NEWS REPORTER?D therapy. 8. Dr. Stewart will be covering the service starting tomorrow. Please give me a call if there is any questions or reconsult Dr. Castro. Charges/Coding Visit Charges Inpatient E&M: 78689 Subs Hosp L3 12/27/24 0852 <Electronically signed by Joseph Johnson MD> Cosigner Signature (if applicable): CC: ~ Signed [facility] Work Phone: 1(234) 724-268209-16-2025 Progress note [facility] Medical Records Department [address] [place] [address] Progress Note - Cardiology 12/27/24 0745 MR#: [id number] Acct: [id number] Name: SCARLETT LANDRY Rep #:[id number] : 1960 64 From: Joseph Johnson MD PCP: Care Physician,No Primary Status :ADM IN Location: [place] [address] Subjective Subjective Patient reports that his breathing is slightly better he sitting up in the chairat the bedside. Both of his lower extremities has been wrapped this morning he said prior to wrapping that he felt theyhad not improved in the edema. Objective Data Vital Signs: Vital Signs Temp Pulse Resp BP Pulse Ox O2 Del Method 97.5 F L 98 16 132/90 H 100 Room Air 12/27/24 04:00 12/27/24 04:00 12/27/24 04:00 12/27/24 04:00 12/27/24 04:00 12/27/24 04:00 Oxygen Delivery Method Room Air Weight: 263 lb 3.711 oz Body Mass Index (BMI) 37.6 Intake & Output: Intake and Output for Last 24 Hours 12/25/24 12/26/24 12/27/24 23:59 23:59 23:59 Intake Total 947.99 / 947.99 798.69 / 1038.69 240 / 240 Output Total 1550 / 2050 2750 / 4800 2550 / 2550 Balance -602.01 / -1102.01 -1951.31 / -3761.31 -2310 / -2310 Lab / Micro Data Attestation: I reviewed the patient's lab results. 12/27/24 05:04 12/27/24 05:04 Labs: Laboratory Results - last 24 hr 12/27/24 05:04: WBC 9.6, RBC 4.70, Hgb 14.2, Hct 45.0, MCV 95.7 H, MCH 30.2, MCHC 31.6 L, RDW Std Deviation 50.0 H, RDW Coeff of Paz 14.3, Plt Count 231, MPV 11.0, Immature Gran % (Auto) 0.400, Neut % (Auto) 60.7, Lymph % (Auto) 23.6, Jennings % (Auto) 12.7 H, Eos % (Auto) 2.3, Baso % (Auto) 0.3, Absolute Neuts (auto) 5.8, Absolute Lymphs (auto) 2.26, Nucleated RBC % 0, Sodium 141, Potassium 4.1, Chloride 101, Carbon Dioxide 28.7, Anion Gap 12, BUN 31 H, Creatinine 1.37 H, Estim Creat Clear Calc 71.47, Est GFR (MDRD) Non-Af 58 L, BUN/Creatinine Ratio 22.4 H, Glucose 99, Calcium 9.7 Rhythm Strip Rhythm Strip: A-fib Rate: 85 Cardiology Labs/Tests 12/27/24 05:04: WBC 9.6, RBC 4.70, Hgb 14.2, Hct 45.0, MCV 95.7 H, MCH 30.2, MCHC 31.6 L, Plt Dviit553, MPV 11.0, Immature Gran % (Auto) 0.400, Neut % (Auto)60.7, Lymph % (Auto) 23.6, Jennings % (Auto) 12.7 H, Eos % (Auto) 2.3, Baso % (Auto)0.3, Absolute Neuts (auto) 5.8, Nucleated RBC % 0, Sodium 141, Potassium 4.1, Chloride 101, Carbon Dioxide 28.7, Anion Gap 12, BUN 31 H, Creatinine 1.37 H, Est GFR (MDRD) Non-Af 58 L, BUN/Creatinine Ratio 22.4 H, Glucose 99, Calcium 9.7 Rhythm: EKG: ECHO: Stress Test: Cardiac Cath: PCI: CT Surgery: Holter monitor: EPS: PPM: CXR: Chest CT Scan: Radiography Diagnostic Testing: Radiology Impression Echocardiogram 12/24/24 19:36 Interpretation Summary Moderately dilated left ventricle. Severe global LV systolic dysfunction. Estimated LVEF 5%. Stage I diastolic dysfunction. Mild global right ventricular systolic dysfunction. There is mild biatrial dilatation. Mild-Moderate (1-2+) mitral valve insufficiency. Mild (1+) tricuspid valve insufficiency. Mildly dilated aortic root. The study was technically difficult. Contrast injection was performed. Ordering Physician: Abhi Chong Performed By: Kathy Guzman RDCS Physical Exam Const alert and oriented x3 HEENT normocephalic Eyes EOMs intact bilaterally Neck no JVD Neck Narrative: Thick neck no JVD appreciated at 90 degrees. Chest inspection of chest normal Resp normal respiratory effort Auscultation: crackles bilateral base Cardio Cardio Narrative: Distant heart tones due to body habitus. Rate: regular rate Rhythm: abnormal rhythm regularly irregular Heart Sounds: S1 normal and S2 normal; Negative for click, gallop or murmur GI GI Narrative: Obese Extremity Extremity Narrative: Both lower extremities are wrapped. Neuro Neuro Narrative: Alert and oriented x 3 Psych mental status grossly normal Assessment & Plan Assessment/Plan (1) Congestive heart failure (CHF): QUALIFIERS: Heart failure chronicity: acute Heart failure type: systolic Qualified Code(s): I50.21 - Acute systolic (congestive) heart failure PLAN: Patient's echocardiogram shows an EF of 5-10%. His pharmacologic nuclear stress test estimated EF 20%. There was no evidence of ischemia on the stress test. There was noted apical thinning. The patient believes that he feels better today he is breathing easier. He is 100% saturated on room air seated in chair. Patient remains on IV furosemide. He is on losartan 25 mg daily metoprolol 50mg twice daily and heart rate seems to have come under little better control. The etiology of his declining LV function from approximately 50% by his report from 2 years ago to now 5 to 10% is probably multifactorial. There may be some segmental abnormality at the apex but overall there is global LV dysfunction andthis may be related to his tachycardia. These symptoms started about 6 weeks ago when he was diagnosed with influenza A and probably represents the initiation ofhis tachyarrhythmia. At this point in time the plan is to maintain the patient on oral anticoagulation therapy for 4 to 6 weeks will continue rate control with metoprolol 50 mg twice daily and if he does not convert to sinus rhythm would consider direct-current cardioversion after 6?8 weeks of oral anticoagulation therapy and amiodarone. We will add amiodarone after 4 weeks of oral anticoagulation as an ambulatory outpatient load prior to direct-current cardioversion. (2) A-fib: QUALIFIERS: Atrial fibrillation type: paroxysmal Qualified Code(s): I48.0 - Paroxysmal atrial fibrillation PLAN: At this point in time the plan is to maintain the patient on oral anticoagulation therapy for4 to 6 weeks will continue rate control with metoprolol 50 mg twice daily and if he does not convert to sinus rhythm would consider direct-current cardioversion after 6?8 weeks of oral anticoagulation therapy and amiodarone. We will add amiodarone after 4 weeks of oral anticoagulation as an ambulatory outpatient load prior to direct-current cardioversion. (3) NSTEMI (non-ST elevated myocardial infarction): PLAN: Patient does not appear to have a type I non-STEMI this appears to be demand type ischemia. Jeremiah not feel that further invasive evaluation is indicated at this point in time the pharmacologic nuclear stress test did not show any active ischemia. PLAN: Plan 1. Continue to titrate guideline directed medical therapy as blood pressure andheart rate tolerate.Will add spironolactone today. 2. The patient is not a candidate for Jardiance or Entresto as he was unable toafford it in the past. 3. Patient should be follow-up in the [facility] office 7 to 10 days after discharge. 4. After 4 weeks of oral anticoagulation therapy amiodarone will be added as a loading dose 400 mg twice daily for 10 days followed by 200 mg daily. 5. After amiodarone is fully loaded and the patient's been on uninterrupted Eliquis for 6-8 weeks direct-current cardioversion would be indicated if he remains in atrial fibs. 6. Following attempted jewish of sinus rhythm and maximally tolerated guideline directed medical therapy for LV dysfunction the patient will be reevaluated with limited echo. 7. Given the patient's left bundle branch block if his EF remains less than 35%he would be a candidate for consideration for NEWS REPORTER?D therapy. 8. Dr. Stewart will be covering the service starting tomorrow. Please give me a call if there is any questions or reconsult Dr. Castro. Charges/Coding Visit Charges Inpatient E&M: 31270 Subs Hosp L3 12/27/24 0852 Cosigner Signature (if applicable): CC: ~ Signed [facility]09-15-2025 Progress note Author Baudilio Castellanos [facility] Note Date/Time December 26, 2024 12:49pm [facility] Medical Records Department [address] [place] [address] Progress Note - Hospitalist 12/26/24 1243 MR#: [id number] Acct: [id number] Name: SCARLETT LANDRY Rep #:[id number] : 1960 64 From: Baudilio Mitchell PCP: Care Physician,No Primary Status :ADM IN Location: [place] [address] Reason for Visit Chief Complaint: Exertional dyspnea and lower extremity swelling Objective Data Objective Data Vital Signs: Vital Signs Temp Pulse Resp BP Pulse Ox O2 Del Method 97.8 F 60 15 118/98 H 98 Room Air 12/26/24 12:20 12/26/24 12:20 12/26/24 12:20 12/26/24 12:20 12/26/24 12:20 12/26/24 12:20 Oxygen Delivery Method Room Air Weight: 266 lb 8.622 oz Body Mass Index (BMI) 38.1 Intake & Output: Intake and Output for Last 24 Hours 12/24/24 12/25/24 12/26/24 23:59 23:59 23:59 Intake Total 15.67 / 18.17 947.99 / 947.99 348.69 / 348.69 Output Total 1175 / 1175 1550 / 2050 1400 / 1400 Balance -1159.33 / -1156.83 -602.01 / -1102.01 -1051.31 / -1051.31 Lab / Micro Data 12/26/24 04:47 12/26/24 04:47 Labs: Laboratory Results - last 24 hr 12/25/24 14:44: APTT 39.4 H 12/25/24 22:01: APTT 50.3 H 12/26/24 04:47: WBC 9.3, RBC 4.88, Hgb 15.0, Hct 46.1, MCV 94.5 H, MCH 30.7, MCHC 32.5, RDW Std Deviation 49.0 H, RDW Coeff of Paz 14.3, Plt Count 206, MPV 10.7, Immature Gran % (Auto) 0.300, Neut % (Auto) 55.8, Lymph % (Auto) 31.8, Jennings % (Auto) 10.5 H, Eos % (Auto) 1.3, Baso % (Auto) 0.3, Absolute Neuts (auto) 5.2, Absolute Lymphs (auto) 2.96, Nucleated RBC % 0, APTT 56.2 H, Sodium 138, Potassium 3.9, Chloride 103, Carbon Dioxide 22.2, Anion Gap 13, BUN 29 H, Creatinine 1.35 H, Estim Creat Clear Calc 73.01, Est GFR (MDRD) Non-Af 59 L, BUN/Creatinine Ratio 21.2 H, Glucose 110 H, Calcium 9.6, Triglycerides 68, Cholesterol 97, LDL Cholesterol, Calc 52, VLDL Cholesterol 14, HDL Cholesterol 31 L, Cholesterol/HDL Ratio 3.13, TSH 2.650, Free T4 1.30 Radiography Diagnostic Testing: Radiology Impression Echocardiogram 12/24/24 19:36 Interpretation Summary Moderately dilated left ventricle. Severe global LV systolic dysfunction. Estimated LVEF 5%. Stage I diastolic dysfunction. Mild global right ventricular systolic dysfunction. There is mild biatrial dilatation. Mild-Moderate (1-2+) mitral valve insufficiency. Mild (1+) tricuspid valve insufficiency. Mildly dilated aortic root. The study was technically difficult. Contrast injection was performed. Ordering Physician: Abhi Chong Performed By: Kathy Guzman RDCS Rhythm Strip Rhythm Strip: A-fib Rate: 88 Physical Exam Narrative Seen and examined Exertional dyspnea and orthopnea. He said he cannot lay supine because of his back and also shortness of breath. Plan for stress test today Mild intermittent lower sternal/xiphisternal localized pain with gait exacerbated on walking and laying down. Feels like reflux/heartburn. Denies having EGD. Shortness of breath and leg swelling lately worsening for 1-1/2 weeks. History of chronic heart failure Physical exam General: Alert, Oriented x3, Cooperative. BMI 34.8 kg/m?. Mild obesity HEENT: Atraumatic, PERRLA, EOMI, Normocephalic. Oral: No Gingival or Mucosal Lesions/ Ulcerations Neck: Supple, No JVD, Negative Carotid Bruits Chest wall/Lungs: Air entry diminished in bilateral lungs. No crepitation/rhonchi Cardiovascular: Atrial flutter on monitor e, Normal S1,S2, systolic murmur Abdomen: Bowel Sounds Present, Soft, Non Tender, Non-Distended : No dysuria. No renal angle tenderness. No suprapubic tenderness. Extremities: 2+ below-knee pedal edema, Capillary Refill Less than 3 Seconds Skin: No rashes, No breakdown Musculoskeletal: No Tenderness to Palpation of Joints or Extremities Neurological: Cranial nerves II-XII grossly intact, DTR 2+/4. No acute focal neurological deficit. Psych/Mental Status: Normal Affect, Appropriate. Assessment & Plan Assessment/Plan (1) Acute exacerbation of CHF (congestive heart failure): (2) Atrial flutter with rapid ventricular response: PLAN: Plan Patient is a 64-year-old male who presented [facility] ED on 12/24/2024 with exertional dyspnea and lower extremity swelling. 1. 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 Pulse ox 100% on room air. IV heparin drip ? Admit under inpatient status to PCU. Cardiology consulted. History of severeHFrEF with dilated cardiomyopathy in July 2022 with EF 15 to 20%. Stress test then was negative. Had good recovery with medical therapy with last echo in October 2022 with EF 50%. Mildly dilated LV, concentric LVH. Normal right ventricle. LA severely enlarged. Right atrium severely enlarged. Mild dilatedcardiomyopathy last follow-up with Dr. Miller 2 years Plan: IV Cardizem drip. Hold home Coreg and lisinopril. 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 12/26: 2D echo done reported EF 5%, stage I diastolic dysfunction, moderately dilated LV with severe global systolic dysfunction. Mild global RV systolic dysfunction. Mild biatrial dilatation. 1-2+ MR, 1+ TR. Mild dilated aortic root. Lexiscan stress test reported no reversible perfusion defect, fixed apical defect. Occasional PVCs EF calculated through Cardiolite 20%. 2. 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 Troponin 60> 59, 70 EKG showed slow atrial flutter with rate in the 120s with 2:1 conduction. nocturnist shows a flutter with variable rate. BNP 7117. Per cardiology,patient initiated on heparin drip and will keep n.p.o. overnight for possible left heart cath tomorrow. Echo ordered. 12/25: Continue IV Lasix 40 mg twice daily, monitor daily BMP and urine output. 12/26: Discussed with Dr. Johnson. Continue Lasix 40 mg IV twice daily today and then changed to 40 IV daily from tomorrow. 2. CKD stage IIIa ? Creatinine 1.37 on admit, baseline 1.2-1.3. Monitor daily BMP and urine output while on IV Lasix as above. 12/25, BUN/creatinine 27/1.4. 12/26: Creatinine is improving 3. Class II obesity with suspected DELVIN ? BMI 38 on admit. Complicates hospital course and care. Patient with risk factors and history that seem consistent with DELVIN. Cardiology recommended sleepstudy for further evaluation in 2022 but patient never had this done. Strongly recommend outpatient sleep study for further evaluation shortly after discharge. 4. History of alcohol abuse ? History of heavy alcohol use prior to hospitalization in 2022 as above. Patient reports very minimal alcohol use since then. Alcohol level 0 on admit. DVT prophylaxis: Not indicated, on heparin drip CODE STATUS: Full code, verified Expected disposition: Home, TBD I talked to the patient's near the bedside. Laboratory Results 12/25/24 14:44: APTT 39.4 H 12/25/24 22:01: APTT 50.3 H 12/26/24 04:47: WBC 9.3, RBC 4.88, Hgb 15.0, Hct 46.1, MCV 94.5 H, MCH 30.7, MCHC 32.5, RDW Std Deviation 49.0 H, RDW Coeff of Paz 14.3, Plt Count 206, MPV 10.7, Immature Gran % (Auto) 0.300, Neut % (Auto) 55.8, Lymph % (Auto) 31.8, Jennings % (Auto) 10.5 H, Eos % (Auto) 1.3, Baso % (Auto) 0.3, Absolute Neuts (auto) 5.2, Absolute Lymphs (auto) 2.96, Nucleated RBC % 0, APTT 56.2 H, Sodium 138, Potassium 3.9, Chloride 103, Carbon Dioxide 22.2, Anion Gap 13, BUN 29 H, Creatinine 1.35 H, Estim Creat Clear Calc 73.01, Est GFR (MDRD) Non-Af 59 L, BUN/Creatinine Ratio 21.2 H, Glucose 110 H, Calcium 9.6, Triglycerides 68, Cholesterol 97, LDL Cholesterol, Calc 52, VLDL Cholesterol 14, HDL Cholesterol 31 L, Cholesterol/HDL Ratio 3.13, TSH 2.650, Free T4 1.30 Charges/Coding Visit Charges Inpatient E&M: 27981 Subs Hosp L2 12/26/24 1249 <Electronically signed by Baudilio Castellanos MD> Cosigner Signature (if applicable): CC: ~ Signed [facility] Work Phone: [phone]) [phone] Progress note [facility] Medical Records Department [address] [place] [address] Progress Note - Hospitalist 12/26/24 1243 MR#: [id number] Acct: [id number] Name: SCARLETT LANDRY Rep #:[id number] : 1960 64 From: Baudilio Mitchell PCP: Care Physician,No Primary Status :ADM IN Location: [place] [address] Reason for Visit Chief Complaint: Exertional dyspnea and lower extremity swelling Objective Data Objective Data Vital Signs: Vital Signs Temp Pulse Resp BP Pulse Ox O2 Del Method 97.8 F 60 15 118/98 H 98 Room Air 12/26/24 12:20 12/26/24 12:20 12/26/24 12:20 12/26/24 12:20 12/26/24 12:20 12/26/24 12:20 Oxygen Delivery Method Room Air Weight: 266 lb 8.622 oz Body Mass Index (BMI) 38.1 Intake & Output: Intake and Output for Last 24 Hours 12/24/24 12/25/24 12/26/24 23:59 23:59 23:59 Intake Total 15.67 / 18.17 947.99 / 947.99 348.69 / 348.69 Output Total 1175 / 1175 1550 / 2050 1400 / 1400 Balance -1159.33 / -1156.83 -602.01 / -1102.01 -1051.31 / -1051.31 Lab / Micro Data 12/26/24 04:47 12/26/24 04:47 Labs: Laboratory Results - last 24 hr 12/25/24 14:44: APTT 39.4 H 12/25/24 22:01: APTT 50.3 H 12/26/24 04:47: WBC 9.3, RBC 4.88, Hgb 15.0, Hct 46.1, MCV 94.5 H, MCH 30.7, MCHC 32.5, RDW Std Deviation 49.0 H, RDW Coeff of Paz 14.3, Plt Count 206, MPV 10.7, Immature Gran % (Auto) 0.300, Neut % (Auto) 55.8, Lymph % (Auto) 31.8, Jennings % (Auto) 10.5 H, Eos % (Auto) 1.3, Baso % (Auto) 0.3, Absolute Neuts (auto) 5.2, Absolute Lymphs (auto) 2.96, Nucleated RBC % 0, APTT 56.2 H, Sodium 138, Potassium 3.9, Chloride 103, Carbon Dioxide 22.2, Anion Gap 13, BUN 29 H, Creatinine 1.35 H, Estim Creat Clear Calc 73.01, Est GFR (MDRD) Non-Af 59 L, BUN/Creatinine Ratio 21.2 H, Glucose 110 H, Calcium 9.6,Triglycerides 68, Cholesterol 97, LDL Cholesterol, Calc 52, VLDL Cholesterol 14, HDL Cholesterol 31L, Cholesterol/HDL Ratio 3.13, TSH 2.650, Free T4 1.30 Radiography Diagnostic Testing: Radiology Impression Echocardiogram 12/24/24 19:36 Interpretation Summary Moderately dilated left ventricle. Severe global LV systolic dysfunction. Estimated LVEF 5%. Stage I diastolic dysfunction. Mild global right ventricular systolic dysfunction. There is mild biatrial dilatation. Mild-Moderate (1-2+) mitral valve insufficiency. Mild (1+) tricuspid valve insufficiency. Mildly dilated aortic root. The study was technically difficult. Contrast injection was performed. Ordering Physician: Abhi Chong Performed By: Kathy Guzman RDCS Rhythm Strip Rhythm Strip: A-fib Rate: 88 Physical Exam Narrative Seen and examined Exertional dyspnea and orthopnea. He said he cannot lay supine because of his back and also shortness of breath. Plan for stress test today Mild intermittent lower sternal/xiphisternal localized pain with gait exacerbated on walking and laying down. Feels like reflux/heartburn. Denies having EGD. Shortness of breath and leg swelling lately worsening for 1-1/2 weeks. History of chronic heart failure Physical exam General: Alert, Oriented x3, Cooperative. BMI 34.8 kg/m?. Mild obesity HEENT: Atraumatic, PERRLA, EOMI, Normocephalic. Oral: No Gingival or Mucosal Lesions/ Ulcerations Neck: Supple, No JVD, Negative Carotid Bruits Chest wall/Lungs: Air entry diminished in bilateral lungs. No crepitation/rhonchi Cardiovascular: Atrial flutter on monitor e, Normal S1,S2, systolic murmur Abdomen: Bowel Sounds Present, Soft, Non Tender, Non-Distended : No dysuria. No renal angle tenderness. No suprapubic tenderness. Extremities: 2+ below-knee pedal edema, Capillary Refill Less than 3 Seconds Skin: No rashes, No breakdown Musculoskeletal: No Tenderness to Palpation of Joints or Extremities Neurological: Cranial nerves II-XII grossly intact, DTR 2+/4. No acute focal neurological deficit. Psych/Mental Status: Normal Affect, Appropriate. Assessment & Plan Assessment/Plan (1) Acute exacerbation of CHF (congestive heart failure): (2) Atrial flutter with rapid ventricular response: PLAN: Plan Patient is a 64-year-old male who presented [facility] ED on 12/24/2024 with exertional dyspnea and lower extremity swelling. 1. 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 Pulse ox 100% on room air. IV heparin drip ? Admit under inpatient status to PCU. Cardiology consulted. History of severeHFrEF with dilated cardiomyopathy in July 2022 with EF 15 to 20%. Stress test then was negative. Had good recovery with medical therapy with last echo in October 2022 with EF 50%. Mildly dilated LV, concentric LVH. Normal right ventricle. LA severely enlarged. Right atrium severely enlarged. Mild dilatedcardiomyopathy last follow-up with Dr. Miller 2 years Plan: IV Cardizem drip. Hold home Coreg and lisinopril. 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 12/26: 2D echo done reported EF 5%, stage I diastolic dysfunction, moderately dilated LV with severeglobal systolic dysfunction. Mild global RV systolic dysfunction. Mild biatrial dilatation. 1-2+ MR, 1+ TR. Mild dilated aortic root. Lexiscan stress test reported no reversible perfusion defect, fixed apical defect. Occasional PVCs EF calculated through Cardiolite 20%. 2. 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 Troponin 60> 59, 70 EKG showed slow atrial flutter with rate in the 120s with 2:1 conduction. nocturnist shows a flutter with variable rate. BNP 7117. Per cardiology,patient initiated on heparin drip and will keep n.p.o. overnight for possible left heart cath tomorrow. Echo ordered. 12/25: Continue IV Lasix 40 mg twice daily, monitor daily BMP and urine output. 12/26: Discussed with Dr. Johnson. Continue Lasix 40 mg IV twice daily today and then changed to 40 IV daily from tomorrow. 2. CKD stage IIIa ? Creatinine 1.37 on admit, baseline 1.2-1.3. Monitor daily BMP and urine output while on IV Lasix as above. 12/25, BUN/creatinine 27/1.4. 12/26: Creatinine is improving 3. Class II obesity with suspected DELVIN ? BMI 38 on admit. Complicates hospital course and care. Patient with risk factors and history thatseem consistent with DELVIN. Cardiology recommended sleepstudy for further evaluation in 2022 but patient never had this done. Strongly recommend outpatient sleep study for further evaluation shortly after discharge. 4. History of alcohol abuse ? History of heavy alcohol use prior to hospitalization in 2022 as above. Patient reports very minimal alcohol use since then. Alcohol level 0 on admit. DVT prophylaxis: Not indicated, on heparin drip CODE STATUS: Full code, verified Expected disposition: Home, TBD I talked to the patient's near the bedside. Laboratory Results 12/25/24 14:44: APTT 39.4 H 12/25/24 22:01: APTT 50.3 H 12/26/24 04:47: WBC 9.3, RBC 4.88, Hgb 15.0, Hct 46.1, MCV 94.5 H, MCH 30.7, MCHC 32.5, RDW Std Deviation 49.0 H, RDW Coeff of Paz 14.3, Plt Count 206, MPV 10.7, Immature Gran % (Auto) 0.300, Neut % (Auto) 55.8, Lymph % (Auto) 31.8, Jennings % (Auto) 10.5 H, Eos % (Auto) 1.3, Baso % (Auto) 0.3, Absolute Neuts (auto) 5.2, Absolute Lymphs (auto) 2.96, Nucleated RBC % 0, APTT 56.2 H, Sodium 138, Potassium 3.9, Chloride 103, Carbon Dioxide 22.2, Anion Gap 13, BUN 29 H, Creatinine 1.35 H, Estim Creat Clear Calc 73.01, Est GFR (MDRD) Non-Af 59 L, BUN/Creatinine Ratio 21.2 H, Glucose 110 H, Calcium 9.6,Triglycerides 68, Cholesterol 97, LDL Cholesterol, Calc 52, VLDL Cholesterol 14, HDL Cholesterol 31L, Cholesterol/HDL Ratio 3.13, TSH 2.650, Free T4 1.30 Charges/Coding Visit Charges Inpatient E&M: 61606 Subs Hosp L2 12/26/24 1249 Cosigner Signature (if applicable): CC: ~ Signed [facility]09-15-2025 Progress note Author Joseph Johnson [facility] Note Date/Time December 26, 2024 9:23am [facility] Medical Records Department [address] [place] [address] Progress Note - Cardiology 12/26/24909 MR#: [id number] Acct: [id number] Name: SCARLETT LANDRY Rep #:[id number] : 1960 64 From: Joseph Johnson MD PCP: Care Physician,No Primary Status :ADM IN Location: [place] [address] Subjective Subjective The patient is resting comfortably in bed. Denies any chest discomfort reports that his chest discomfort and shortness of breath occur simultaneously when he was trying to actively be active. This started after he was diagnosed with influenza approximately 6 weeks ago. He also has progressively had increasing lower extremity edema. 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 The patient did come in with atrial flutter 2-1 with 140-150 bpm heart rate. An echocardiogram this morning estimates his EF in the 10% range. Patient has a history of apical ischemia on a stress test done after his original presentation in 2022. This was a small area of apical ischemia. Telemetry now shows atrial fibrillation with a heart rate of 88 to 106 bpm. Objective Data Vital Signs: Vital Signs Temp Pulse Resp BP Pulse Ox O2 Del Method 97 F L 82 18 104/87 H 96 Room Air 12/26/24 05:00 12/26/24 05:00 12/26/24 05:00 12/26/24 05:00 12/26/24 05:00 12/26/24 07:39 Oxygen Delivery Method Room Air Weight: 266 lb 8.622 oz Body Mass Index (BMI) 38.1 Intake & Output: Intake and Output for Last 24 Hours 12/24/24 12/25/24 12/26/24 23:59 23:59 23:59 Intake Total 15.67 / 18.17 947.99 / 947.99 183.15 / 183.15 Output Total 1175 / 1175 1549 / 2049 1100 / 1100 Balance -1159.33 / -1156.83 -602.01 / -1102.01 -916.85 / -916.85 Lab / Micro Data 12/26/24 04:47 12/26/24 04:47 Labs: Laboratory Results - last 24 hr 12/25/24 09:07: APTT 41.9 H 12/25/24 14:44: APTT 39.4 H 12/25/24 22:01: APTT 50.3 H 12/26/24 04:47: WBC 9.3, RBC 4.88, Hgb 15.0, Hct 46.1, MCV 94.5 H, MCH 30.7, MCHC 32.5, RDW Std Deviation 49.0 H, RDW Coeff of Paz 14.3, Plt Count 206, MPV 10.7, Immature Gran % (Auto) 0.300, Neut % (Auto) 55.8, Lymph % (Auto) 31.8, Jennings % (Auto) 10.5 H, Eos % (Auto) 1.3, Baso % (Auto) 0.3, Absolute Neuts (auto) 5.2, Absolute Lymphs (auto) 2.96, Nucleated RBC % 0, APTT 56.2 H, Sodium 138, Potassium 3.9, Chloride 103, Carbon Dioxide 22.2, Anion Gap 13, BUN 29 H, Creatinine 1.35 H, Estim Creat Clear Calc 73.01, Est GFR (MDRD) Non-Af 59 L, BUN/Creatinine Ratio 21.2 H, Glucose 110 H, Calcium 9.6, Triglycerides 68, Cholesterol 97, LDL Cholesterol, Calc 52, VLDL Cholesterol 14, HDL Cholesterol 31 L, Cholesterol/HDL Ratio 3.13, TSH 2.650, Free T4 1.30 Rhythm Strip Rhythm Strip: A-fib Rate: 88 Cardiology Labs/Tests 12/25/24 09:07: APTT 41.9 H 12/25/24 14:44: APTT 39.4 H 12/25/24 22:01: APTT 50.3 H 12/26/24 04:47: WBC 9.3, RBC 4.88, Hgb 15.0, Hct 46.1, MCV 94.5 H, MCH 30.7, MCHC 32.5, Plt Count 206, MPV 10.7, Immature Gran % (Auto) 0.300, Neut % (Auto) 55.8, Lymph % (Auto) 31.8, Jennings % (Auto) 10.5 H, Eos % (Auto) 1.3, Baso % (Auto)0.3, Absolute Neuts (auto) 5.2, Nucleated RBC % 0, APTT 56.2 H, Sodium 138, Potassium 3.9, Chloride 103, Carbon Dioxide 22.2, Anion Gap 13, BUN 29 H, Creatinine 1.35 H, Est GFR (MDRD) Non-Af 59 L, BUN/Creatinine Ratio 21.2 H, Glucose 110 H, Calcium 9.6, Triglycerides 68, Cholesterol 97, VLDL Cholesterol 14, HDL Cholesterol 31 L, Cholesterol/HDL Ratio 3.13 Rhythm: EKG: ECHO: Stress Test: Cardiac Cath: PCI: CT Surgery: Holter monitor: EPS: PPM: CXR: Chest CT Scan: Physical Exam Const alert and oriented x3 HEENT normocephalic Eyes EOMs intact bilaterally Neck no JVD Neck Narrative: No JVD at 90 degrees sitting in the bed. Chest inspection of chest normal Resp normal respiratory effort Auscultation: crackles bilateral base Cardio Cardio Narrative: Distant heart tones due to increased AP diameter. Rate: regular rate Rhythm: abnormal rhythm irregularly irregular Heart Sounds: S1 normal and S2 normal; Negative for click, gallop or murmur GI GI Narrative: Obese. Extremity General Extremity: edema bilateral lower extremity Details: moderate Neuro Neuro Narrative: Alert and oriented x 3 Psych mental status grossly normal Assessment & Plan Assessment/Plan (1) Congestive heart failure (CHF): QUALIFIERS: Heart failure type: systolic Heart failure chronicity: acute Qualified Code(s): I50.21 - Acute systolic (congestive) heartfailure PLAN: Patient carries a history of heart failure with reduced ejection fraction. His echocardiogram today is consistent with an ejection fraction globally depressed at around 10%. His ECG is consistent with atrial fibrillation at a heart rate of 106 bpm and a left bundle branch block. Upon original presentation the emergency department he was in atrial flutter with 2-1 conduction 140-150 bpm range. His symptoms of the progressive dyspnea on exertion and lower extremity edema started about 6 weeks ago when he was diagnosed with influenza. He was not aware he was in atrial flutter when he presented to the emergency department it is highly likely he has been tachycardic for 6 weeks. This very well could be the etiology of the drop in his ejection fraction. He does have a slight bump in his enzymes 60, 59, 74 his troponins. ECG does not show any acute ischemic changes but he does have a left bundle branch block. He does have a remote history in 2022 of apical small area of ischemia on a pharmacologic nuclear stress test. Would recommend titrate guideline directed medical therapy as blood pressure heart rate and renal function allow. The patient could not tolerate Jardiance or Entresto in the ambulatory setting due to financial constraints. Given the patient's left bundle branch block he would be a candidate for NEWS REPORTER?D therapy pending maximum tolerated guideline directed medical therapy and a repeat echocardiogram in 6 to 12 weeks. (2) A-fib: QUALIFIERS: Atrial fibrillation type: paroxysmal Qualified Code(s): I48.0 - Paroxysmal atrial fibrillation PLAN: The atrial fibs presumed to started around 6 weeks ago. He was in atrial flutter on original presentation in the right has been better controlled with metoprolol 25 mg twice daily. Will plan on increasing this to 50 mg twice dailytoday. (3) NSTEMI (non-ST elevated myocardial infarction): PLAN: Patient's enzymes were 60, 59, and 70 for his high-sensitivity troponin. I did not feel this represents a type I non-STEMI. Would recommend that we treat this as demand ischemia I would recommend that we stop his heparin and repeat his pharmacologic nuclear stress test. Will continue to treat the patient aggressively medically to compensate for his heart failure. PLAN: Plan 1. Recommend decrease Lasix to 40 mg IV daily. 2. Will increase metoprolol to 50 mg twice daily. 3. Will add low-dose losartan 25 mg daily. 4. Will plan pharmacologic nuclear stress test later today. 5. Will continue to titrate guideline directed medical therapy to maximum tolerated doses once achieved we will recheck echocardiogram 6 to 12 weeks later. 12/26/24 6164 <Electronically signed by Joseph Johnson MD> Cosigner Signature (if applicable): CC: ~ Signed [facility] Work Phone: [phone] Progress note [facility] Medical Records Department [address] [place] [address] Progress Note - Cardiology 12/26/24909 MR#: [id number] Acct: [id number] Name: SCARLETT LANDRY Rep #:[id number] : 1960 64 From: Joseph Johnson MD PCP: Care Physician,No Primary Status :ADM IN Location: [place] [address] Subjective Subjective The patient is resting comfortably in bed. Denies any chest discomfort reports that his chest discomfort and shortness of breath occur simultaneously when he was trying to actively be active. This started after he was diagnosed with influenza approximately 6 weeks ago. He also has progressively hadincreasing lower extremity edema. 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 The patient did come in with atrial flutter 2-1 with 140- 150 bpm heart rate. An echocardiogram this morning estimates his EF in the 10% range. Patient has a history of apical ischemia on a stress test done after his original presentation in 2022. This was a small area of apical ischemia. Telemetry now shows atrial fibrillation with a heart rate of 88 to 106 bpm. Objective Data Vital Signs: Vital Signs Temp Pulse Resp BP Pulse Ox O2 Del Method 97 F L 82 18 104/87 H 96 Room Air 12/26/24 05:00 12/26/24 05:00 12/26/24 05:00 12/26/24 05:00 12/26/24 05:00 12/26/24 07:39 Oxygen Delivery Method Room Air Weight: 266 lb 8.622 oz Body Mass Index (BMI) 38.1 Intake & Output: Intake and Output for Last 24 Hours 12/24/24 12/25/24 12/26/24 23:59 23:59 23:59 Intake Total 15.67 / 18.17 947.99 / 947.99 183.15 / 183.15 Output Total 1175 / 1175 1550 / 2050 1100 / 1100 Balance -1159.33 / -1156.83 -602.01 / -1102.01 -916.85 / -916.85 Lab / Micro Data 12/26/24 04:47 12/26/24 04:47 Labs: Laboratory Results - last 24 hr 12/25/24 09:07: APTT 41.9 H 12/25/24 14:44: APTT 39.4 H 12/25/24 22:01: APTT 50.3 H 12/26/24 04:47: WBC 9.3, RBC 4.88, Hgb 15.0, Hct 46.1, MCV 94.5 H, MCH 30.7, MCHC 32.5, RDW Std Deviation 49.0 H, RDW Coeff of Paz 14.3, Plt Count 206, MPV 10.7, Immature Gran % (Auto) 0.300, Neut % (Auto) 55.8, Lymph % (Auto) 31.8, Jennings % (Auto) 10.5 H, Eos % (Auto) 1.3, Baso % (Auto) 0.3, Absolute Neuts (auto) 5.2, Absolute Lymphs (auto) 2.96, Nucleated RBC % 0, APTT 56.2 H, Sodium 138, Potassium 3.9, Chloride 103, Carbon Dioxide 22.2, Anion Gap 13, BUN 29 H, Creatinine 1.35 H, Estim Creat Clear Calc 73.01, Est GFR (MDRD) Non-Af 59 L, BUN/Creatinine Ratio 21.2 H, Glucose 110 H, Calcium 9.6,Triglycerides 68, Cholesterol 97, LDL Cholesterol, Calc 52, VLDL Cholesterol 14, HDL Cholesterol 31L, Cholesterol/HDL Ratio 3.13, TSH 2.650, Free T4 1.30 Rhythm Strip Rhythm Strip: A-fib Rate: 88 Cardiology Labs/Tests 12/25/24 09:07: APTT 41.9 H 12/25/24 14:44: APTT 39.4 H 12/25/24 22:01: APTT 50.3 H 12/26/24 04:47: WBC 9.3, RBC 4.88, Hgb 15.0, Hct 46.1, MCV 94.5 H, MCH 30.7, MCHC 32.5, Plt Count 206, MPV 10.7, Immature Gran % (Auto) 0.300, Neut % (Auto) 55.8, Lymph % (Auto) 31.8, Jennings % (Auto) 10.5 H, Eos % (Auto) 1.3, Baso % (Auto)0.3, Absolute Neuts (auto) 5.2, Nucleated RBC % 0, APTT 56.2 H, Sodium 138, Potassium 3.9, Chloride 103, Carbon Dioxide 22.2, Anion Gap 13, BUN 29 H, Creatinine 1.35 H, Est GFR (MDRD) Non-Af 59 L, BUN/Creatinine Ratio 21.2 H, Glucose 110 H, Calcium 9.6, Triglycerides 68, Cholesterol 97, VLDL Cholesterol 14, HDL Cholesterol 31 L, Cholesterol/HDL Ratio 3.13 Rhythm: EKG: ECHO: Stress Test: Cardiac Cath: PCI: CT Surgery: Holter monitor: EPS: PPM: CXR: Chest CT Scan: Physical Exam Const alert and oriented x3 HEENT normocephalic Eyes EOMs intact bilaterally Neck no JVD Neck Narrative: No JVD at 90 degrees sitting in the bed. Chest inspection of chest normal Resp normal respiratory effort Auscultation: crackles bilateral base Cardio Cardio Narrative: Distant heart tones due to increased AP diameter. Rate: regular rate Rhythm: abnormal rhythm irregularly irregular Heart Sounds: S1 normal and S2 normal; Negative for click, gallop or murmur GI GI Narrative: Obese. Extremity General Extremity: edema bilateral lower extremity Details: moderate Neuro Neuro Narrative: Alert and oriented x 3 Psych mental status grossly normal Assessment & Plan Assessment/Plan (1) Congestive heart failure (CHF): QUALIFIERS: Heart failure type: systolic Heart failure chronicity: acute Qualified Code(s): I50.21 - Acute systolic (congestive) heartfailure PLAN: Patient carries a history of heart failure with reduced ejection fraction. His echocardiogramtoday is consistent with an ejection fraction globally depressed at around 10%. His ECG is consistent with atrial fibrillation at a heart rate of 106 bpm and a left bundle branch block. Upon originalpresentation the emergency department he was in atrial flutter with 2-1 conduction 140-150 bpm range. His symptoms of the progressive dyspnea on exertion and lower extremity edema started about 6 weeksago when he was diagnosed with influenza. He was not aware he was in atrial flutter when he presented to the emergency department it is highly likely he has been tachycardic for 6 weeks. This very well could be the etiology of the drop in his ejection fraction. He does have a slight bump in his enzymes 60, 59, 74 his troponins. ECG does not show any acute ischemic changes but he does have a left bundle branch block. He does have a remote history in 2022 of apical small area of ischemia on a pharmacologic nuclear stress test. Would recommend titrate guideline directed medical therapy as blood pressure heart rate and renal function allow. The patient could not tolerate Jardiance or Entresto in the ambulatory setting due tofinancial constraints. Given the patient's left bundle branch block he would be a candidate for NEWS REPORTER?D therapy pending maximum tolerated guideline directed medical therapy and a repeat echocardiogram in 6 to 12 weeks. (2) A-fib: QUALIFIERS: Atrial fibrillation type: paroxysmal Qualified Code(s): I48.0 - Paroxysmal atrial fibrillation PLAN: The atrial fibs presumed to started around 6 weeks ago. He was in atrial flutter on original presentation in the right has been better controlled with metoprolol 25 mg twice daily. Will plan onincreasing this to 50 mg twice dailytoday. (3) NSTEMI (non-ST elevated myocardial infarction): PLAN: Patient's enzymes were 60, 59, and 70 for his high-sensitivity troponin. I did not feel this represents a type I non-STEMI. Would recommend that we treat this as demand ischemia I would recommend that we stop his heparin and repeat his pharmacologic nuclear stress test. Will continue to treat the patient aggressively medically to compensate for his heart failure. PLAN: Plan 1. Recommend decrease Lasix to 40 mg IV daily. 2. Will increase metoprolol to 50 mg twice daily. 3. Will add low-dose losartan 25 mg daily. 4. Will plan pharmacologic nuclear stress test later today. 5. Will continue to titrate guideline directed medical therapy to maximum tolerated doses once achieved we will recheck echocardiogram 6 to 12 weeks later. 12/26/24922 Cosigner Signature (if applicable): CC: ~ Signed [facility]09-14-2025 Consult note Author Patric Colmenares [facility] Note Date/Time December 25, 2024 11:25am [facility] Medical Records Department [address] [place] [address] Consultation - Cardiology 12/25/24 1106 MR#: [id number] Acct: [id number] Name: LANDRYSCARLETT SANTORO Rep #:[id number] : 1960 64 From: Patric Colmenares MD PCP: Care Physician,No Primary Status :ADM IN Location: [place] [address] Assessment & Plan Assessment/Plan (1) NSTEMI (non-ST elevated myocardial infarction): PLAN: It is likely in the setting of acute decompensated heart failure. Patient needs ischemic evaluation for his cardiomyopathy and his chest pain. Continue with aspirin and IV heparin drip for now. Start atorvastatin 40 mg daily. Keep him n.p.o. after midnight for possible left heart catheterization tomorrow morning if creatinine remains stable. (2) Atrial flutter with rapid ventricular response: PLAN: Discontinue Cardizem in the setting of HFrEF Start metoprolol to tartrate 25 twice daily and uptitrate uptitrate as needed. He will he will need anticoagulation on discharge. Continue with IV heparin with now (3) Acute exacerbation of CHF (congestive heart failure): PLAN: Etiology of cardiomyopathy could be combination of alcohol and tachycardiainduced cardiomyopathy. Ischemia has to be ruled out. Continue with IV Lasix 40 mg twice daily Discontinue Cardizem Start metoprolol tartrate He had issues with Jardiance and Entresto from before due to financial issues. Restart lisinopril 5 mg daily. 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 He has been having orthopnea, PND. He has NYHA class III heart failure symptoms. He has shortness of breath with minimal exertion. He has been having chest pain for the last 2 weeks. His chest pain has been becoming progressively worsening with minimal activity for which he presented [facility]. He describes his chest pain as pressure substernal worse with exertion and better with rest. He had a stress test in 2022 showed small area of reversibility in the apex. Cardiology service was consulted for further evaluation. In the ED his troponin found to be elevated at 70. Alcohol level is less than 10.1. He was found to be in atrial flutter. PFSH Medical History Essential hypertension History of ETOH abuse Elevated blood pressure reading Home Medications ?Medication ?Instructions ?Recorded ?Last Taken ?Type potassium chloride 20 mEq See Rx Instructions .Route 0 05/11/23 12/24/24 Rx tablet,extended .COMPLEX #90 tabs release(part/cryst) (Klor-Con M) lisinopril 10 mg tablet 10 mg PO BID #180 tabs 08/2312/24/24 Rx carvedilol 6.25 mg tablet 6.25 mg PO BID #180 TABLETS 08/23/24 12/24/24 Rx furosemide 40 mg tablet (Lasix) 40 mg PO DAILY #90 tab s 08/29/24 12/24/24 Rx Allergy/AdvReac Type Severity Reaction Status Date / Time No Known Allergies Allergy Verified 12/24/24 16:42 Family History Other COPD (chronic obstructive pulmonary disease) Heart disease Social History household members: spouse Smoking Status: Former smoker how long ago did patient quit smokin years ago alcohol intake: never substance use type: marijuana caffeine: No (None in the last couple of weeks) Physical Exam Const alert and oriented x3 HEENT normocephalic Eyes PERRL Neck full ROM Lymph Lymphatic: no lymphadenopathy noted Chest inspection of chest normal Resp normal respiratory effort Auscultation: crackles Cardio Jugular Venous Distention: JVD Rate: Negative for regular rate Heart Sounds: Negative for murmur GI normal to inspection, nondistended, normoactive bowel sounds no CVA tenderness Back/Spine no CVA tenderness Extremity General Extremity: edema Skin no rashes or lesions noted Psych mental status grossly normal Objective Data Vital Signs: Vital Signs Temp Pulse Resp BP Pulse Ox O2 Del Method 97.8 F 69 15 111/88 H 100 Room Air 12/25/24 04:00 12/25/24 09:00 12/25/24 09:00 12/25/24 09:00 12/25/24 09:00 12/25/24 10:00 Oxygen Delivery Method Room Air Weight: 267 lb 10.259 oz Body Mass Index (BMI) 38.4 Intake & Output: Intake and Output for Last 24 Hours 12/23/24 12/24/24 12/25/24 23:59 23:59 23:59 Intake Total 15.67 / 18.17 279.20 / 279.20 Output Total 1175 / 1175 200 / 200 Balance -1159.33 / -1156.83 79.20 / 79.20 Lab / Micro Data 12/25/24 02:45 12/25/24 02:45 Labs: Laboratory Results - last 24 hr 12/24/24 17:06: WBC 9.9, RBC 4.81, Hgb 15.1, Hct 45.8, MCV 95.2 H, MCH 31.4, MCHC 33.0, RDW Std Deviation 49.7 H, RDW Coeff of Paz 14.2, Plt Count 253, MPV 11.3, Immature Gran % (Auto) 0.300, Neut % (Auto) 60.1, Lymph % (Auto) 27.8, Jennings % (Auto) 10.6 H, Eos % (Auto) 0.8, Baso % (Auto) 0.4, Absolute Neuts (auto) 6.0, Absolute Lymphs (auto) 2.76, Nucleated RBC % 0, PT 15.8 H, INR 1.2, Sodium 141, Potassium 4.6, Chloride 106, Carbon Dioxide 23.4, Anion Gap 12, BUN 27 H, Creatinine 1.37 H, Estim Creat Clear Calc 72.52, Est GFR (MDRD) Non-Af 58 L, BUN/Creatinine Ratio 19.4, Glucose 109 H, Calcium 10.1, Phosphorus 3.6, Magnesium 2.3 H, Troponin T High Sens 60 H*, Troponin T Hi Sens 4Hr Cancelled, NTpro BNP II 7117 H 12/24/24 19:47: Troponin T Hi Sens 2 Hr 59 H*, Ethyl Alcohol < 10.1 12/24/24 22:00: Troponin T Hi Sens 4Hr 70 H* 12/25/24 02:45: WBC 10.8, RBC 4.84, Hgb 14.7, Hct 46.4, MCV 95.9 H, MCH 30.4, MCHC 31.7 L, RDW Std Deviation 49.9 H, RDW Coeff of Paz 14.4, Plt Count 241, MPV 10.8, Immature Gran % (Auto) 0.300, Neut % (Auto) 58.0, Lymph % (Auto) 28.3, Jennings % (Auto) 11.9 H, Eos % (Auto) 0.9, Baso % (Auto) 0.6, Absolute Neuts (auto) 6.3, Absolute Lymphs (auto) 3.05, Nucleated RBC % 0, APTT 40.5 H, Sodium 141, Potassium 4.1, Chloride 104, Carbon Dioxide 23.4, Anion Gap 13, BUN 27 H, Creatinine 1.40 H, Estim Creat Clear Calc 71.01, Est GFR (MDRD) Non-Af 56 L, BUN/Creatinine Ratio 19.5, Glucose 114 H, Calcium 9.6 12/25/24 09:07: APTT 41.9 H Cardiology Labs/Tests 12/24/24 17:06: WBC 9.9, RBC 4.81, Hgb 15.1, Hct 45.8, MCV 95.2 H, MCH 31.4, MCHC 33.0, Plt Count 253, MPV 11.3, Immature Gran % (Auto) 0.300, Neut % (Auto) 60.1, Lymph % (Auto) 27.8, Jennings % (Auto) 10.6 H, Eos % (Auto) 0.8, Baso % (Auto)0.4, Absolute Neuts (auto) 6.0, Nucleated RBC % 0, PT 15.8 H, INR 1.2, Sodium 141, Potassium 4.6, Chloride 106, Carbon Dioxide 23.4, Anion Gap 12, BUN 27 H, Creatinine 1.37 H, Est GFR (MDRD) Non-Af 58 L, BUN/Creatinine Ratio 19.4, [id number] H, Calcium 10.1, Phosphorus 3.6, Magnesium 2.3 H 12/25/24 02:45: WBC 10.8, RBC 4.84, Hgb 14.7, Hct 46.4, MCV 95.9 H, MCH 30.4, MCHC 31.7 L, Plt Count 241, MPV 10.8, Immature Gran % (Auto) 0.300, Neut % (Auto)58.0, Lymph % (Auto) 28.3, Jennings % (Auto) 11.9 H, Eos % (Auto) 0.9, Baso % (Auto)0.6, Absolute Neuts (auto) 6.3, Nucleated RBC % 0, APTT 40.5 H, Sodium 141, Potassium 4.1, Chloride 104, Carbon Dioxide 23.4, Anion Gap 13, BUN 27 H, Creatinine 1.40 H, Est GFR (MDRD) Non-Af 56 L, BUN/Creatinine Ratio 19.5, [id number] H, Calcium 9.6 12/25/24 09:07: APTT 41.9 H Rhythm: Atrial flutter EKG: Atrial flutter ECHO: EF 10-15% Stress Test: Small area of reversibility in the apex Radiography Diagnostic Testing: Radiology Impression Chest X-Ray 12/24/24 17:55 IMPRESSION: Stable cardiomegaly with mild pulmonary vascular congestion. Reading Location: [facility] Risk Score for UA/STEMI Assesmment (YES = 1) Risk Stratification Applicable: Yes Age > or = 65: No > or = 3 CAD risk factors (HTN, Hypercholesterolemia, Diabetes, family hx, current smoker): Yes Known CAD (Stenosis > or = 50%): No ASA used in past 7 days: No Severe angina (> or = 2 episodes in 24 hrs): Yes EKG ST change > or = 0.5mm: No Positive cardiac markers: Yes Score JOHN Risk Score of mortality/ recurrent ischemic event over the next 14 days: 3 = 13.2% Intermediate Risk 12/25/24 1125 <Electronically signed by Patric Colmenares MD> Cosigner Signature (if applicable): CC: No Primary Care Physician~ Signed [facility] Work Phone: [phone] Consult note [facility] Medical Records Department [address] [place] [address] Consultation - Cardiology 12/25/24 1106 MR#: [id number] Acct: [id number] Name: SCARLETT LANDRY Rep #:[id number] : 1960 64 From: Patric Colmenares MD PCP: Care Physician,No Primary Status :ADM IN Location: [place] [address]- Assessment & Plan Assessment/Plan (1) NSTEMI (non-ST elevated myocardial infarction): PLAN: It is likely in the setting of acute decompensated heart failure. Patient needs ischemic evaluation for his cardiomyopathy and his chest pain. Continue with aspirin and IV heparin drip for now. Start atorvastatin 40 mg daily. Keep him n.p.o. after midnight for possible left heart catheterization tomorrow morning if creatinine remains stable. (2) Atrial flutter with rapid ventricular response: PLAN: Discontinue Cardizem in the setting of HFrEF Start metoprolol to tartrate 25 twice daily and uptitrate uptitrate as needed. He will he will need anticoagulation on discharge. Continue with IV heparin with now (3) Acute exacerbation of CHF (congestive heart failure): PLAN: Etiology of cardiomyopathy could be combination of alcohol and tachycardiainduced cardiomyopathy. Ischemia has to be ruled out. Continue with IV Lasix 40 mg twice daily Discontinue Cardizem Start metoprolol tartrate He had issues with Jardiance and Entresto from before due to financial issues. Restart lisinopril 5 mg daily. 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 He has been having orthopnea, PND. He has NYHA class III heart failure symptoms. He has shortness of breath with minimal exertion. He has been having chest pain for the last 2 weeks. His chest pain has been becoming progressively worsening with minimal activity for which he presented [facility]. He describes his chest pain as pressure substernal worse with exertion and better with rest. He had a stress test in 2022 showed small area of reversibility in the apex. Cardiology service was consulted for further e valuation. In the ED his troponin found to be elevated at 70. Alcohol level is less than 10.1. He was found to be in atrial flutter. [facility] Medical History Essential hypertension History of ETOH abuse Elevated blood pressure reading Home Medications ?Medication ?Instructions ?Recorded ?Last Taken ?Type potassium chloride 20 mEq See Rx Instructions .Route 0 05/11/23 12/24/24 Rx tablet,extended .COMPLEX #90 tabs release(part/cryst) (Klor-Con M) lisinopril 10 mg tablet 10 mg PO BID #180 tabs 08/2312/24/24 Rx carvedilol 6.25 mg tablet 6.25 mg PO BID #180 TABLETS 08/23/24 12/24/24 Rx furosemide 40 mg tablet (Lasix) 40 mg PO DAILY #90 tab s 08/29/24 12/24/24 Rx Allergy/AdvReac Type Severity Reaction Status Date / Time No Known Allergies Allergy Verified 12/24/24 16:42 Family History Other COPD (chronic obstructive pulmonary disease) Heart disease Social History household members: spouse Smoking Status: Former smoker how long ago did patient quit smokin years ago alcohol intake: never substance use type: marijuana caffeine: No (None in the last couple of weeks) Physical Exam Const alert and oriented x3 HEENT normocephalic Eyes PERRL Neck full ROM Lymph Lymphatic: no lymphadenopathy noted Chest inspection of chest normal Resp normal respiratory effort Auscultation: crackles Cardio Jugular Venous Distention: JVD Rate: Negative for regular rate Heart Sounds: Negative for murmur GI normal to inspection, nondistended, normoactive bowel sounds no CVA tenderness Back/Spine no CVA tenderness Extremity General Extremity: edema Skin no rashes or lesions noted Psych mental status grossly normal Objective Data Vital Signs: Vital Signs Temp Pulse Resp BP Pulse Ox O2 Del Method 97.8 F 69 15 111/88 H 100 Room Air 12/25/24 04:00 12/25/24 09:00 12/25/24 09:00 12/25/24 09:00 12/25/24 09:00 12/25/24 10:00 Oxygen Delivery Method Room Air Weight: 267 lb 10.259 oz Body Mass Index (BMI) 38.4 Intake & Output: Intake and Output for Last 24 Hours 12/23/24 12/24/24 12/25/24 23:59 23:59 23:59 Intake Total 15.67 / 18.17 279.20 / 279.20 Output Total 1175 / 1175 200 / 200 Balance -1159.33 / -1156.83 79.20 / 79.20 Lab / Micro Data 12/25/24 02:45 12/25/24 02:45 Labs: Laboratory Results - last 24 hr 12/24/24 17:06: WBC 9.9, RBC 4.81, Hgb 15.1, Hct 45.8, MCV 95.2 H, MCH 31.4, MCHC 33.0, RDW Std Deviation 49.7 H, RDW Coeff of Paz 14.2, Plt Count 253, MPV 11.3, Immature Gran % (Auto) 0.300, Neut % (Auto) 60.1, Lymph % (Auto) 27.8, Jennings % (Auto) 10.6 H, Eos % (Auto) 0.8, Baso % (Auto) 0.4, Absolute Neuts (auto) 6.0, Absolute Lymphs (auto) 2.76, Nucleated RBC % 0, PT 15.8 H, INR 1.2, Sodium 141, Potassium 4.6, Chloride 106, Carbon Dioxide 23.4, Anion Gap 12, BUN 27 H, Creatinine 1.37 H, Estim Creat Clear Calc 72.52, Est GFR (MDRD) Non-Af 58 L, BUN/Creatinine Ratio 19.4, Glucose 109 H, Edahcmo05.1, Phosphorus 3.6, Magnesium 2.3 H, Troponin T High Sens 60 H*, Troponin T Hi Sens 4Hr Cancelled, NTpro BNP II 7117 H 12/24/24 19:47: Troponin T Hi Sens 2 Hr 59 H*, Ethyl Alcohol < 10.1 12/24/24 22:00: Troponin T Hi Sens 4Hr 70 H* 12/25/24 02:45: WBC 10.8, RBC 4.84, Hgb 14.7, Hct 46.4, MCV 95.9 H, MCH 30.4, MCHC 31.7 L, RDW Std Deviation 49.9 H, RDW Coeff of Paz 14.4, Plt Count 241, MPV 10.8, Immature Gran % (Auto) 0.300, Neut% (Auto) 58.0, Lymph % (Auto) 28.3, Jennings % (Auto) 11.9 H, Eos % (Auto) 0.9, Baso % (Auto) 0.6, Absolute Neuts (auto) 6.3, Absolute Lymphs (auto) 3.05, Nucleated RBC % 0, APTT 40.5 H, Sodium 141, Potas sium 4.1, Chloride 104, Carbon Dioxide 23.4, Anion Gap 13, BUN 27 H, Creatinine 1.40 H, Estim CreatClear Calc 71.01, Est GFR (MDRD) Non-Af 56 L, BUN/Creatinine Ratio 19.5, Glucose 114 H, Calcium 9.6 12/25/24 09:07: APTT 41.9 H Cardiology Labs/Tests 12/24/24 17:06: WBC 9.9, RBC 4.81, Hgb 15.1, Hct 45.8, MCV 95.2 H, MCH 31.4, MCHC 33.0, Plt Count 253, MPV 11.3, Immature Gran % (Auto) 0.300, Neut % (Auto) 60.1, Lymph % (Auto) 27.8, Jennings % (Auto) 10.6 H, Eos % (Auto) 0.8, Baso % (Auto)0.4, Absolute Neuts (auto) 6.0, Nucleated RBC % 0, PT 15.8 H, INR 1.2, Sodium 141, Potassium 4.6, Chloride 106, Carbon Dioxide 23.4, Anion Gap 12, BUN 27 H, Creatinine 1.37 H, Est GFR (MDRD) Non-Af 58 L, BUN/Creatinine Ratio 19.4, [id number] H, Calcium 10.1, Phosphorus 3.6, Magnesium 2.3 H 12/25/24 02:45: WBC 10.8, RBC 4.84, Hgb 14.7, Hct 46.4, MCV 95.9 H, MCH 30.4, MCHC 31.7 L, Plt Count 241, MPV 10.8, Immature Gran % (Auto) 0.300, Neut % (Auto)58.0, Lymph % (Auto) 28.3, Jennings % (Auto)11.9 H, Eos % (Auto) 0.9, Baso % (Auto)0.6, Absolute Neuts (auto) 6.3, Nucleated RBC % 0, APTT 40.5H, Sodium 141, Potassium 4.1, Chloride 104, Carbon Dioxide 23.4, Anion Gap 13, BUN 27 H, Creatinine1.40 H, Est GFR (MDRD) Non-Af 56 L, BUN/Creatinine Ratio 19.5, [id number] H, Calcium 9.6 12/25/24 09:07: APTT 41.9 H Rhythm: Atrial flutter EKG: Atrial flutter ECHO: EF 10-15% Stress Test: Small area of reversibility in the apex Radiography Diagnostic Testing: Radiology Impression Chest X-Ray 12/24/24 17:55 IMPRESSION: Stable cardiomegaly with mild pulmonary vascular congestion. Reading Location: [facility] JOHN Risk Score for UA/STEMI Assesmment (YES = 1) Risk Stratification Applicable: Yes Age > or = 65: No > or = 3 CAD risk factors (HTN, Hypercholesterolemia, Diabetes, family hx, current smoker): Yes Known CAD (Stenosis > or = 50%): No ASA used in past 7 days: No Severe angina (> or = 2 episodes in 24 hrs): Yes EKG ST change > or = 0.5mm: No Positive cardiac markers: Yes Score JOHN Risk Score of mortality/ recurrent ischemic event over the next 14 days: 3 = 13.2% Intermediate Risk 12/25/24 1125 Cosigner Signature (if applicable): CC: No Primary Care Physician~ Signed [facility]09-14-2025 Progress note Author Baudilio Castellanos [facility] Note Date/Time December 25, 2024 9:17am [facility] Medical Records Department [address] [place] [address] Progress Note - Hospitalist 12/25/24 0752 MR#: [id number] Acct: [id number] Name: SCARLETT LANDRY Rep #:[id number] : 1960 64 From: Baudilio Mitchell PCP: Care Physician,No Primary Status :ADM IN Location: [place] [address] Reason for Visit Chief Complaint: Exertional dyspnea and lower extremity swelling Objective Data Objective Data Vital Signs: Vital Signs Temp Pulse Resp BP Pulse Ox O2 Del Method 97.8 F 65 18 112/102 H 98 Room Air 12/25/24 04:00 12/25/24 07:14 12/25/24 07:14 12/25/24 07:14 12/25/24 07:14 12/25/24 05:00 Oxygen Delivery Method Room Air Weight: 267 lb 10.259 oz Body Mass Index (BMI) 38.4 Intake & Output: Intake and Output for Last 24 Hours 12/23/24 12/24/24 12/25/24 23:59 23:59 23:59 Intake Total 15.67 / 18.17 166.88 / 166.88 Output Total 1175 / 1175 200 / 200 Balance -1159.33 / -1156.83 -33.12 / -33.12 Lab / Micro Data 12/25/24 02:45 12/25/24 02:45 Labs: Laboratory Results - last 24 hr 12/24/24 17:06: WBC 9.9, RBC 4.81, Hgb 15.1, Hct 45.8, MCV 95.2 H, MCH 31.4, MCHC 33.0, RDW Std Deviation 49.7 H, RDW Coeff of Paz 14.2, Plt Count 253, MPV 11.3, Immature Gran % (Auto) 0.300, Neut % (Auto) 60.1, Lymph % (Auto) 27.8, Jennings % (Auto) 10.6 H, Eos % (Auto) 0.8, Baso % (Auto) 0.4, Absolute Neuts (auto) 6.0, Absolute Lymphs (auto) 2.76, Nucleated RBC % 0, PT 15.8 H, INR 1.2, Sodium 141, Potassium 4.6, Chloride 106, Carbon Dioxide 23.4, Anion Gap 12, BUN 27 H, Creatinine 1.37 H, Estim Creat Clear Calc 72.52, Est GFR (MDRD) Non-Af 58 L, BUN/Creatinine Ratio 19.4, Glucose 109 H, Calcium 10.1, Phosphorus 3.6, Magnesium 2.3 H, Troponin T High Sens 60 H*, Troponin T Hi Sens 4Hr Cancelled, NTpro BNP II 7117 H 12/24/24 19:47: Troponin T Hi Sens 2 Hr 59 H*, Ethyl Alcohol < 10.1 12/24/24 22:00: Troponin T Hi Sens 4Hr 70 H* 12/25/24 02:45: WBC 10.8, RBC 4.84, Hgb 14.7, Hct 46.4, MCV 95.9 H, MCH 30.4, MCHC 31.7 L, RDW Std Deviation 49.9 H, RDW Coeff of Paz 14.4, Plt Count 241, MPV 10.8, Immature Gran % (Auto) 0.300, Neut % (Auto) 58.0, Lymph % (Auto) 28.3, Jennings % (Auto) 11.9 H, Eos % (Auto) 0.9, Baso % (Auto) 0.6, Absolute Neuts (auto) 6.3, Absolute Lymphs (auto) 3.05, Nucleated RBC % 0, APTT 40.5 H, Sodium 141, Potassium 4.1, Chloride 104, Carbon Dioxide 23.4, Anion Gap 13, BUN 27 H, Creatinine 1.40 H, Estim Creat Clear Calc 71.01, Est GFR (MDRD) Non-Af 56 L, BUN/Creatinine Ratio 19.5, Glucose 114 H, Calcium 9.6 Radiography Diagnostic Testing: Radiology Impression Chest X-Ray 12/24/24 17:55 IMPRESSION: Stable cardiomegaly with mild pulmonary vascular congestion. Reading Location: [facility] Physical Exam Narrative Seen and examined Patient has intermittent lower sternal/xiphisternal localized pain with gait exacerbated on walking and laying down. Feels like reflux/heartburn. Denies having EGD. Shortness of breath and leg swelling lately worsening for 1-1/2 weeks. History of chronic heart failure Physical exam General: Alert, Oriented x3, Cooperative. BMI 34.8 kg/m?. Mild obesity HEENT: Atraumatic, PERRLA, EOMI, Normocephalic. Oral: No Gingival or Mucosal Lesions/ Ulcerations Neck: Supple, No JVD, Negative Carotid Bruits Chest wall/Lungs: Air entry diminished in bilateral lungs. No crepitation/rhonchi Cardiovascular: Atrial flutter on monitor with variable rate, Normal S1,S2, systolic murmur Abdomen: Bowel Sounds Present, Soft, Non Tender, Non-Distended : No dysuria. No renal angle tenderness. No suprapubic tenderness. Extremities: 2+ below-knee pedal edema, Capillary Refill Less than 3 Seconds Skin: No rashes, No breakdown Musculoskeletal: No Tenderness to Palpation of Joints or Extremities Neurological: Cranial nerves II-XII grossly intact, DTR 2+/4. No acute focal neurological deficit. Psych/Mental Status: Normal Affect, Appropriate. Assessment & Plan Assessment/Plan (1) Acute exacerbation of CHF (congestive heart failure): (2) Atrial flutter with rapid ventricular response: PLAN: Plan Patient is a 64-year-old male who presented [facility] ED on 12/24/2024 with exertional dyspnea and lower extremity swelling. 1. 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 Pulse ox 100% on room air. IV heparin drip ? Admit under inpatient status to PCU. Cardiology consulted. History of severeHFrEF with dilated cardiomyopathy in July 2022 with EF 15 to 20%. Stress test then was negative. Had good recovery with medical therapy with last echo in October 2022 with EF 50%. Mildly dilated LV, concentric LVH. Normal right ventricle. LA severely enlarged. Right atrium severely enlarged. Mild dilatedcardiomyopathy last follow-up with Dr. Miller 2 years Plan: IV Cardizem drip. Hold home Coreg and lisinopril. 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 2. 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 Troponin 60> 59, 70 EKG showed slow atrial flutter with rate in the 120s with 2:1 conduction. nocturnist shows a flutter with variable rate. BNP 7117. Per cardiology,patient initiated on heparin drip and will keep n.p.o. overnight for possible left heart cath tomorrow. Echo ordered. 12/25: Continue IV Lasix 40 mg twice daily, monitor daily BMP and urine output. 2. CKD stage IIIa ? Creatinine 1.37 on admit, baseline 1.2-1.3. Monitor daily BMP and urine output while on IV Lasix as above. 12/25, BUN/creatinine 27/1.4. 3. Class II obesity with suspected DELVIN ? BMI 38 on admit. Complicates hospital course and care. Patient with risk factors and history that seem consistent with DELVIN. Cardiology recommended sleepstudy for further evaluation in 2022 but patient never had this done. Strongly recommend outpatient sleep study for further evaluation shortly after discharge. 4. History of alcohol abuse ? History of heavy alcohol use prior to hospitalization in 2022 as above. Patient reports very minimal alcohol use since then. Alcohol level 0 on admit. DVT prophylaxis: Not indicated, on heparin drip CODE STATUS: Full code, verified Expected disposition: Home, TBD Charges/Coding Visit Charges Inpatient E&M: 18180 Subs Hosp L3 12/25/24916 <Electronically signed by Baudilio Castellanos MD> Cosigner Signature (if applicable): CC: ~ Signed [facility] Work Phone: 1(266) 851-664209-14-2025 Progress note [facility] Medical Records Department [address] [place] [address] Progress Note - Hospitalist 12/25/24 0752 MR#: [id number] Acct: [id number] Name: SCARLETT LANDRY Rep #:[id number] : 1960 64 From: Baudilio Mitchell PCP: Care Physician,No Primary Status :ADM IN Location: [place] [address] Reason for Visit Chief Complaint: Exertional dyspnea and lower extremity swelling Objective Data Objective Data Vital Signs: Vital Signs Temp Pulse Resp BP Pulse Ox O2 Del Method 97.8 F 65 18 112/102 H 98 Room Air 12/25/24 04:00 12/25/24 07:14 12/25/24 07:14 12/25/24 07:14 12/25/24 07:14 12/25/24 05:00 Oxygen Delivery Method Room Air Weight: 267 lb 10.259 oz Body Mass Index (BMI) 38.4 Intake & Output: Intake and Output for Last 24 Hours 12/23/24 12/24/24 12/25/24 23:59 23:59 23:59 Intake Total 15.67 / 18.17 166.88 / 166.88 Output Total 1175 / 1175 200 / 200 Balance -1159.33 / -1156.83 -33.12 / -33.12 Lab / Micro Data 12/25/24 02:45 12/25/24 02:45 Labs: Laboratory Results - last 24 hr 12/24/24 17:06: WBC 9.9, RBC 4.81, Hgb 15.1, Hct 45.8, MCV 95.2 H, MCH 31.4, MCHC 33.0, RDW Std Deviation 49.7 H, RDW Coeff of Paz 14.2, Plt Count 253, MPV 11.3, Immature Gran % (Auto) 0.300, Neut % (Auto) 60.1, Lymph % (Auto) 27.8, Jennings % (Auto) 10.6 H, Eos % (Auto) 0.8, Baso % (Auto) 0.4, Absolute Neuts (auto) 6.0, Absolute Lymphs (auto) 2.76, Nucleated RBC % 0, PT 15.8 H, INR 1.2, Sodium 141, Potassium 4.6, Chloride 106, Carbon Dioxide 23.4, Anion Gap 12, BUN 27 H, Creatinine 1.37 H, Estim Creat Clear Calc 72.52, Est GFR (MDRD) Non-Af 58 L, BUN/Creatinine Ratio 19.4, Glucose 109 H, Qejqgqw14.1, Phosphorus 3.6, Magnesium 2.3 H, Troponin T High Sens 60 H*, Troponin T Hi Sens 4Hr Cancelled, NTpro BNP II 7117 H 12/24/24 19:47: Troponin T Hi Sens 2 Hr 59 H*, Ethyl Alcohol < 10.1 12/24/24 22:00: Troponin T Hi Sens 4Hr 70 H* 12/25/24 02:45: WBC 10.8, RBC 4.84, Hgb 14.7, Hct 46.4, MCV 95.9 H, MCH 30.4, MCHC 31.7 L, RDW Std Deviation 49.9 H, RDW Coeff of Paz 14.4, Plt Count 241, MPV 10.8, Immature Gran % (Auto) 0.300, Neut% (Auto) 58.0, Lymph % (Auto) 28.3, Jennings % (Auto) 11.9 H, Eos % (Auto) 0.9, Baso % (Auto) 0.6, Absolute Neuts (auto) 6.3, Absolute Lymphs (auto) 3.05, Nucleated RBC % 0, APTT 40.5 H, Sodium 141, Potas sium 4.1, Chloride 104, Carbon Dioxide 23.4, Anion Gap 13, BUN 27 H, Creatinine 1.40 H, Estim CreatClear Calc 71.01, Est GFR (MDRD) Non-Af 56 L, BUN/Creatinine Ratio 19.5, Glucose 114 H, Calcium 9.6 Radiography Diagnostic Testing: Radiology Impression Chest X-Ray 12/24/24 17:55 IMPRESSION: Stable cardiomegaly with mild pulmonary vascular congestion. Reading Location: [facility] Physical Exam Narrative Seen and examined Patient has intermittent lower sternal/xiphisternal localized pain with gait exacerbated on walkingand laying down. Feels like reflux/heartburn. Denies having EGD. Shortness of breath and leg swelling lately worsening for 1-1/2 weeks. History of chronic heart failure Physical exam General: Alert, Oriented x3, Cooperative. BMI 34.8 kg/m?. Mild obesity HEENT: Atraumatic, PERRLA, EOMI, Normocephalic. Oral: No Gingival or Mucosal Lesions/ Ulcerations Neck: Supple, No JVD, Negative Carotid Bruits Chest wall/Lungs: Air entry diminished in bilateral lungs. No crepitation/rhonchi Cardiovascular: Atrial flutter on monitor with variable rate, Normal S1,S2, systolic murmur Abdomen: Bowel Sounds Present, Soft, Non Tender, Non-Distended : No dysuria. No renal angle tenderness. No suprapubic tenderness. Extremities: 2+ below-knee pedal edema, Capillary Refill Less than 3 Seconds Skin: No rashes, No breakdown Musculoskeletal: No Tenderness to Palpation of Joints or Extremities Neurological: Cranial nerves II-XII grossly intact, DTR 2+/4. No acute focal neurological deficit. Psych/Mental Status: Normal Affect, Appropriate. Assessment & Plan Assessment/Plan (1) Acute exacerbation of CHF (congestive heart failure): (2) Atrial flutter with rapid ventricular response: PLAN: Plan Patient is a 64-year-old male who presented [facility] ED on 12/24/2024 with exertional dyspnea and lower extremity swelling. 1. 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 Pulse ox 100% on room air. IV heparin drip ? Admit under inpatient status to PCU. Cardiology consulted. History of severeHFrEF with dilated cardiomyopathy in July 2022 with EF 15 to 20%. Stress test then was negative. Had good recovery with medical therapy with last echo in October 2022 with EF 50%. Mildly dilated LV, concentric LVH. Normal right ventricle. LA severely enlarged. Right atrium severely enlarged. Mild dilatedcardiomyopathy last follow-up with Dr. Miller 2 years Plan: IV Cardizem drip. Hold home Coreg and lisinopril. 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 2. 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 Troponin 60> 59, 70 EKG showed slow atrial flutter with rate in the 120s with 2:1 conduction. nocturnist shows a flutter with variable rate. BNP 7117. Per cardiology,patient initiated on heparin drip and will keep n.p.o. overnight for possible left heart cath tomorrow. Echo ordered. 12/25: Continue IV Lasix 40 mg twice daily, monitor daily BMP and urine output. 2. CKD stage IIIa ? Creatinine 1.37 on admit, baseline 1.2-1.3. Monitor daily BMP and urine output while on IV Lasix as above. 12/25, BUN/creatinine 27/1.4. 3. Class II obesity with suspected DELVIN ? BMI 38 on admit. Complicates hospital course and care. Patient with risk factors and history thatseem consistent with DELVIN. Cardiology recommended sleepstudy for further evaluation in 2022 but patient never had this done. Strongly recommend outpatient sleep study for further evaluation shortly after discharge. 4. History of alcohol abuse ? History of heavy alcohol use prior to hospitalization in 2022 as above. Patient reports very minimal alcohol use since then. Alcohol level 0 on admit. DVT prophylaxis: Not indicated, on heparin drip CODE STATUS: Full code, verified Expected disposition: Home, TBD Charges/Coding Visit Charges Inpatient E&M: 53326 Subs Hosp L3 12/25/24 0917 Cosigner Signature (if applicable): CC: ~ Signed [facility]09-13-2025 History and physical note Author Abhi Chong [facility] Note Date/Time December 24, 2024 9:00pm [facility] Medical Records Department [address] [place] [address] H&P Exam - Hospitalist 12/24/241929 MR#: [id number] Acct: [id number] Name: SCARLETT LANDRY Rep #:[id number] : 1960 64 From: Abhi sorto DO PCP: Care Physician,No Primary Status :ADM IN Location: [place] [address] HPI - General General Date of Admission: 12/24/24 Date of Service: 12/24/24 Chief Complaint: Exertional dyspnea and lower extremity swelling HPI Narrative SCARLETT LANDRY, is a 64 M who presented to [facility] ED on 12/24/2024 with exertional dyspnea and lower extremity swelling. 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 Patient lives home with his . He has noticed increasing lower extremity swelling over thepast several weeks. He has now noticed worsening shortness of breath and chest discomfort with exertion over the past several days. He also reports orthopnea. Has been taking his home Lasix as prescribed with good urine output. Patient reports very occasional alcohol use now with last use about 2 months ago. Has never had sleep apnea testing done. In the ED today heart rate noted to be in the 120s, and EKG showed what appeared to be slow atrial flutter with 2:1 conduction. Chest x-ray with stable cardiomegaly with mild pulmonary vascular congestion. BNP 7117. Troponin trend 60 > 59. Given concern for new onset A-flutter, CHF and concern for NSTEMI, case was discussed with cardiology who recommended heparin drip for anticoagulation and n.p.o. for possible cath tomorrow. Hospitalist was then contacted for admission. I saw the patient at bedside in the ED, was present. Patient was sitting back comfortably in bed, conversing normally, in no acute distress. He was breathing comfortably onroom air at rest. On lung auscultation he had mild crackles noted in bilateral bases but otherwise good air movement throughout. Had +1-2 lower extremity pitting edema up to the upper calf noted. Denied any other acute concerns currently. Will be admitted for further management. [facility] Medical History Essential hypertension History of ETOH abuse Elevated blood pressure reading Home Medications ?Medication ?Instructions ?Recorded ?Last Taken ?Type potassium chloride 20 mEq See Rx Instructions .Route 0 05/11/23 12/24/24 Rx tablet,extended .COMPLEX #90 tabs release(part/cryst) (Klor-Con M) lisinopril 10 mg tablet 10 mg PO BID #180 tabs 08/2312/24/24 Rx carvedilol 6.25 mg tablet 6.25 mg PO BID #180 TABLETS 08/23/24 12/24/24 Rx furosemide 40 mg tablet (Lasix) 40 mg PO DAILY #90 tab s 08/29/24 12/24/24 Rx Allergy/AdvReac Type Severity Reaction Status Date / Time No Known Allergies Allergy Verified 12/24/24 16:42 Family History Other COPD (chronic obstructive pulmonary disease) Heart disease Social History (Updated 12/24/24 @ 17:[address] Yuniel Hoffman MD) household members: spouse Smoking Status: Former smoker how long ago did patient quit smokin years ago alcohol intake: never substance use type: marijuana caffeine: No (None in the last couple of weeks) ROS Constitutional Constitutional: Reports fatigue; Denies chills, fever(s) or weakness Cardiovascular Cardiovascular: Reports dyspnea on exertion, edema and orthopnea; Denies chest pain, lightheadedness or palpitations Respiratory/Chest Respiratory/Chest: Reports shortness of breath with exertion; Denies cough, productive cough, shortness of breath at rest or wheezing Gastrointestinal Gastrointestinal: Denies abdominal pain Musculoskeletal Musculoskeletal: Denies arthralgias or myalgias Neurologic Neurologic: Denies dizziness, focal weakness or headache(s) Vital Signs Vital Signs Vital Signs: 12/24/24 16:41 12/24/24 17:03 12/24/24 17:49 Temperature 98.0 F Temperature Source Oral Pulse Rate 120 H 122 H Respiratory Rate 22 H 16 Respiratory Effort Normal Respiratory Depth Normal Respiratory Pattern Normal Blood Pressure 146/114 H 130/103 H Blood Pressure Mean 124 112 Pulse Ox 98 98 Oxygen Delivery Method Room Air Room Air Room Air 12/24/24 17:50 12/24/24 17:50 Temperature 98.8 F Temperature Source Oral Pulse Rate 122 H Respiratory Rate 16 Respiratory Effort Respiratory Depth Respiratory Pattern Blood Pressure 129/108 H Blood Pressure Mean 115 Pulse Ox 98 Oxygen Delivery Method Room Air Room Air Weight Weight: 122.742 kg Body Mass Index (BMI) 38.8 Physical Exam Const alert, oriented x3 and no apparent distress Constitutional Narrative: Pleasant upper middle-age male, class II obesity, mildly fatigued appearing but otherwise sitting back comfortably in bed, conversing normally, in no acute distress. General Appearance: cooperative and comfortable HEENT normocephalic, head/scalp atraumatic, hearing grossly normal bilaterally, nasal mucous membranes and turbinates normal and moist oral mucous membranes Eyes PERRL, EOMs intact bilaterally and conjunctivae normal Neck full ROM Chest inspection of chest normal Resp normal respiratory effort and no use of accessory muscles Resp Narrative: Breathing comfortably on room air at rest. Mild crackles noted in bilateral lung bases but otherwise good air movement throughout. Cardio no murmurs and peripheral pulses 2+ throughout Cardio Narrative: Tachycardic, regular rhythm. GI normal to inspection, nondistended, normoactive bowel sounds, soft to palpation,non-tender and non-distended Back/Spine normal ROM Extremity normal to inspection, full ROM and no pedal edema Skin no rashes or lesions noted Psych mental status grossly normal Results Lab / Micro Data 12/24/24 17:06 12/24/24 17:06 Labs: Laboratory Results - last 24 hr 12/24/24 17:06: WBC 9.9, RBC 4.81, Hgb 15.1, Hct 45.8, MCV 95.2 H, MCH 31.4, MCHC 33.0, RDW Std Deviation 49.7 H, RDW Coeff of Paz 14.2, Plt Count 253, MPV 11.3, Immature Gran % (Auto) 0.300, Neut % (Auto) 60.1, Lymph % (Auto) 27.8, Jennings % (Auto) 10.6 H, Eos % (Auto) 0.8, Baso % (Auto) 0.4, Absolute Neuts (auto) 6.0, Absolute Lymphs (auto) 2.76, Nucleated RBC % 0, Sodium 141, Potassium 4.6, Chloride 106, Carbon Dioxide 23.4, Anion Gap 12, BUN 27 H, Creatinine 1.37 H, Estim Creat Clear Calc 72.52, Est GFR (MDRD) Non-Af 58 L, BUN/Creatinine Ratio 19.4, Glucose 109 H, Calcium 10.1, Troponin T High Sens 60 H*, NT pro BNP II 7117 H Imaging Radiology Impression Chest X-Ray 12/24/24 17:55 IMPRESSION: Stable cardiomegaly with mild pulmonary vascular congestion. Reading Location: [facility] Assessment & Plan Assessment/Plan (1) Acute exacerbation of CHF (congestive heart failure): (2) Atrial flutter with rapid ventricular response: PLAN: Plan Patient is a 64-year-old male who presented [facility] ED on 12/24/2024 with exertional dyspnea and lower extremity swelling. 1. New onset A-fib/flutter with RVR with CHF exacerbation; elevated troponins; history of HFrEF with recovered ejection fraction secondary to alcohol cardiomyopathy; history of hypertension ? Admit under inpatient status to PCU. Cardiology consulted. History of severeHFrEF with dilated cardiomyopathy in July 2022 with EF 15 to 20%. Stress test then was negative. Had good recovery with medical therapy with last echo in October 2022 with EF 50%. It appears he was then lost to follow-up. Presentation now seems most consistent with CHF exacerbation secondary to tachycardia inducedcardiomyopathy in setting of new onset A-fib/flutter, possibly due to untreated DELVIN as below. Troponin 60 > 59, most likely elevated due to A-fib/flutter and CHF exacerbation, though cannot rule out coronary disease. EKG showed slow atrial flutter with rate in the 120s with 2:1 conduction. BNP 7117. Chest x-ray with mild pulmonary congestion. Patient satting well on room air at rest. Per cardiology, patient initiated on heparin drip and will keep n.p.o. overnightfor possible left heart cath tomorrow. Echo ordered. Will start IV Lasix 40 mgtwice daily, monitor daily BMP and urine output. Will also start Cardizem drip with goal rate less than 100. Will hold home Coreg and lisinopril for now. Appreciate further cardiology recommendations. 2. CKD stage IIIa ? Creatinine 1.37 on admit, baseline 1.2-1.3. Monitor daily BMP and urine output while on IV Lasix as above. 3. Class II obesity with suspected DELVIN ? BMI 38 on admit. Complicates hospital course and care. Patient with risk factors and history that seem consistent with DELVIN. Cardiology recommended sleepstudy for further evaluation in 2022 but patient never had this done. Strongly recommend outpatient sleep study for further evaluation shortly after discharge. 4. History of alcohol abuse ? History of heavy alcohol use prior to hospitalization in 2022 as above. Patient reports very minimal alcohol use since then. Alcohol level 0 on admit. DVT prophylaxis: Not indicated, on heparin drip CODE STATUS: Full code, verified Expected disposition: Home, TBD Total clinical time spent by myself addressing the patient's medical issues, reviewing all the data, and collaborating with patient's care team: 81 minutes. Charges/Coding Visit Charges Inpatient E&M: 24535 Init Hosp L3 12/24/24 2100 <Electronically signed by Abhi Chong DO> Cosigner Signature (if applicable): CC: Dr. Abhi Chong DO; No Primary Care Physician~ Signed [facility] Work Phone: 1(162) 965-591709-13-2025 Discharge summary Author Yuniel Hoffman [facility] Note Date/Time December 24, 2024 7:[address] [place] [address] [facility] Medical Records Department [address] [place] [address] Emergency Department Summary 12/24/24 MR#: [id number] Acct: [id number] Name: SCARLETT LANDRY Rep #:[id number] : 1960 64 From: Yuniel Hoffman MD PCP: Care Physician,No Primary Status :REG ER Location: ED HPI History of Present Illness Chief Complaint: Chest Pain Informant: patient and spouse/S.O. Onset/Context/Timing Onset: Days (Exertional indigestion and dyspnea for the past 2 to 3 days) and Weeks (Pedal edema past week) Activity at onset: sudden (Exertional indigestion with dyspnea) and gradual (Swelling of his lower extremities) Timing: Intermittent Quality: Positive for Indigestion Location: Substernal (Inferior substernal region/left parasternal region) Current Severity: Gone Maximum Severity: Moderate Worsened By: Exertion; Not Worsened By Movement of Arm, Movement of Torso, Eating, Palpation, Breathing or Coughing Relieved By: Rest (Resolved after 5 to 10 minutes of rest) Associated Symptoms: Positive for Dyspnea; Negative for Nausea, Vomiting, Diaphoresis, Cough, Fever, Lightheadedness, Acid Reflux or Palpitations Narrative Narrative: Patient is a poor informant. He states he is seen by Dr. Miller. on. He admits to congestive heart failure and hypertension. He does not know why he is on carvedilol. His last echo was performed October 29, 2022. Patient had mild dilated left ventricle with mild concentric left ventricular hypertrophy and an estimated ejection fraction of 50%. The left atrium was severely enlarged and the right atrium is enlarged. Patient had a pharmacologic stress test performedMa2022. Revealed small area of perfusion abnormality at the apex which is minimally worse post Lexiscan. There was no significant reversible perfusion defect noted. The gated Cardiolite study revealed an LVEF of 32%. Patient presents because of swelling, dyspnea and indigestion with exertion. Hestates if he goes up an incline he gets indigestion and he localizes it to the inferior sternal left parasternal region. It does not radiate. It is associated with shortness of breath. He states he has trouble getting his breath. His symptoms resolved after 5 to 10 minutes of rest. He has no known history of coronary disease. He and his states he has never had a cardiac catheterization. He has no history of atrial fibrillation or atrial flutter. Patient denies history of peptic ulcers, GERD, hiatal hernia. Patient denies intolerance to greasy or fried foods. Patient does have stable two-pillow orthopnea. He is also concerned because of increased swelling of his lower extremities. He is on furosemide. He reports compliance. Prior Similar Symptoms: No Recent Illness/Hospitalization: No CVD Risk Factors: Positive for Hypertension; Negative for Diabetes, Hypercholesterolemia or Family History 1' </=55 PE Risk Factors: Negative for Recent Travel/Surgery, Recent Immobilization, Prior DVT or PE, Cancer or OCP + Smoking + >/=35 TAD Risk Factors: Positive for Hypertension; Negative for Marfan's Syndrome or Family History [facility] Medical History Essential hypertension History of ETOH abuse Elevated blood pressure reading Home Medications ?Medication ?Instructions ?Recorded ?Last Taken ?Type potassium chloride 20 mEq See Rx Instructions .Route 0 05/11/23 12/24/24 Rx tablet,extended .COMPLEX #90 tabs release(part/cryst) (Klor-Con M) lisinopril 10 mg tablet 10 mg PO BID #180 tabs 08/2312/24/24 Rx carvedilol 6.25 mg tablet 6.25 mg PO BID #180 TABLETS 08/23/24 12/24/24 Rx furosemide 40 mg tablet (Lasix) 40 mg PO DAILY #90 tab s 08/29/24 12/24/24 Rx Allergy/AdvReac Type Severity Reaction Status Date / Time No Known Allergies Allergy Verified 12/24/24 16:42 Family History Other COPD (chronic obstructive pulmonary disease) Heart disease Social History (Updated 12/24/24 @ 17:[address] Yuniel Hoffman MD) household members: spouse Smoking Status: Former smoker how long ago did patient quit smokin years ago alcohol intake: never substance use type: marijuana caffeine: No (None in the last couple of weeks) ROS ROS ED Constitutional Constitutional ED: Denies chills, fever(s), subjective or sweats Eyes Eyes: Reports none ENT ENT ED: Denies rhinorrhea or sore throat Cardiovascular Cardiovascular: Reports as per HPI and orthopnea; Denies paroxysmal nocturnal dyspnea Respiratory/Chest Respiratory/Chest: Reports dyspnea on exertion and orthopnea; Denies cough, dyspnea or paroxysmal nocturnal dyspnea Gastrointestinal Gastrointestinal: Denies abdominal pain, melena, nausea or vomiting Musculoskeletal Musculoskeletal: Denies arthralgias, back pain, myalgias or neck pain Integumentary Denies rash Neurologic Neurologic: Denies weakness Hematologic/Lymphatic Hematologic/Lymphatic: Denies easy bleeding or easy bruising EXAM Physical Exam Const Vital Signs: 12/24/24 16:41 12/24/24 17:03 12/24/24 17:49 Temperature 98.0 F Temperature Source Oral Pulse Rate 120 H 122 H Respiratory Rate 22 H 16 Respiratory Effort Normal Respiratory Depth Normal Respiratory Pattern Normal Blood Pressure 146/114 H 130/103 H Blood Pressure Mean 124 112 Pulse Ox 98 98 Oxygen Delivery Method Room Air Room Air Room Air 12/24/24 17:50 12/24/24 17:50 Temperature 98.8 F Temperature Source Oral Pulse Rate 122 H Respiratory Rate 16 Respiratory Effort Respiratory Depth Respiratory Pattern Blood Pressure 129/108 H Blood Pressure Mean 115 Pulse Ox 98 Oxygen Delivery Method Room Air Room Air Positive well nourished and well developed Constitutional Narrative: BMI is 38.8. He appears in no distress. Blood pressure is elevated 146/114 andheart rate is 120. General Appearance ED: well developed; Negative for pallor HEENT Reports moist mucous membranes normocephalic and atraumatic Eyes PERRL and EOMs intact bilaterally General Eye ED: Negative for pale conjunctiva or scleral icterus Neck no lymphadenopathy, supple and no JVD Chest Wall inspection of chest normal and palpation of chest normal Resp normal respiratory effort and No clear to auscultation bilaterally Auscultation: rales bilateral base Cardio regular rhythm, S1 normal heart sound, S2 normal heart sound and no murmurs Rate: tachycardic Peripheral Pulses: pulses 2+ throughout GI normal to inspection, nondistended, normoactive bowel sounds, soft to palpation,non-tender, non-distended and no masses; Negative for hepatosplenomegaly Back/Spine Back/Spine Narrative: Inspection of the back is normal. Extremity General Extremety ED: Yes edema General Extremity: edema bilateral lower extremity Details: moderate Neuro oriented x3 and CN's II-XII intact bilaterally Sensorium / Orientation: awake and alert Psych mental status grossly normal Skin no rashes or lesions noted and no wounds General Skin Exam: Negative for jaundice or pallor MDM MDM MDM Narrative Medical decision making narrative: Patient is EKG reveals possible atypical a flutter with 2-1 block with a rate of123. Patient's history is concerning for new onset exertional angina. Will obtain cardiac markers. CBC to assess H&H and white count. BMP to assess renalfunction. Because of the bibasilar rales chest x-ray was obtained to assess forevidence of heart failure. Also obtained a BNP. History & Record Review Additional record(s) reviewed:: Prior outpatient record (Documented HPI narrative) and Prior labs Lab Data Attestation: I reviewed the patient's lab results. Lab results narrative: CBC is unremarkable. Basic metabolic panel is elevated BUN/creatinine of 27 and1.37. First troponin is elevated at 60. BNP is elevated at 7117. Labs: Laboratory Results - last 24 hr 12/24/24 17:06 WBC 9.9 RBC 4.81 Hgb 15.1 Hct 45.8 MCV 95.2 H MCH 31.4 MCHC 33.0 RDW Std Deviation 49.7 H RDW Coeff of Paz 14.2 Plt Count 253 MPV 11.3 Immature Gran % (Auto) 0.300 Neut % (Auto) 60.1 Lymph % (Auto) 27.8 Jennings % (Auto) 10.6 H Eos % (Auto) 0.8 Baso % (Auto) 0.4 Absolute Neuts (auto) 6.0 Absolute Lymphs (auto) 2.76 Nucleated RBC % 0 Sodium 141 Potassium 4.6 Chloride 106 Carbon Dioxide 23.4 Anion Gap 12 BUN 27 H Creatinine 1.37 H Estim Creat Clear Calc 72.52 Est GFR (MDRD) Non-Af 58 L BUN/Creatinine Ratio 19.4 Glucose 109 H Calcium 10.1 Troponin T High Sens 60 H* NT pro BNP II 7117 H Radiography Chest X-Ray - ED: 2 View, Read by ED Physician (There are some minimal chronic changes. There is mild cardiomegaly. Cardiac silhouette is normal. Lung parenchyma reveals no infiltrate, cephalization, curly B-lines and there is no effusion. Thoracic spine reveals degenerative changes. There is no acute osseous abnormalities noted. Independen), Unchanged, Mediastinum and No Acute Disease Diagnostic Testing: Clinical Impression(s) from Imaging Studies Chest X-Ray 12/24/24 17:55 IMPRESSION: Stable cardiomegaly with mild pulmonary vascular congestion. Reading Location: [facility] EKG Initial EKG: Attestation: I personally reviewed and interpreted this EKG as follows: Interpretation: - (Wide-complex tachycardia. Rate is 123. This may represent an atypical atrial flutter with 2-1 block. There is evidence of left bundle branch block. QRS durations 144 ms. QRS duration 432 ms. [place] is normal.) Management Discussion w/another healthcare provider: Hospitalist (Dr. Chong the admitting hospitalist was made aware where patient's history physical and discussion with cardiology. Full admit PCU) and Staff Technologist (Spoke with senior salesforce developer on-call Dr. Colmenares. He was informed of patient's history, physical and concerns. Agrees with anticoagulation. He will see patient in the morning. Patient be admitted to hospital) Treatment and Re-Evaluation :: Aspirin, heparin, beta-yosef Critical Care Time Critical Care Time: Yes Critical care time (excluding procedures): 30-74 minutes (32), Including time spent: (History, physical, documentation, review of prior records, independent or potation laboratory results, treatment for ACS and CHF), Discussing w/Patient&/or Family/Director Emergency, Discussing w/Consultants (Cardiology and hospitalist) and Arranging Admission or Transfer Discharge Plan Dx/Rx/DC Orders Clinical Impression: ACS (acute coronary syndrome), Essential hypertension, Acute exacerbation of CHF (congestive heart failure), Sinus tachycardia, Adult BMI 38.0-38.9 kg/sq m Disposition Disposition: [facility] What to do if you have Problems For any increased pain, shortness of breath, bleeding, nausea or vomiting, chestpain, or any unexpected problems, contact your Primary Care Provider. Call [facility] ([phone]) or report to the closest Emergency Room. Call 911 if necessary. 12/24/241931 <Electronically signed by Yuniel Hoffman MD> Cosigner Signature (if applicable): CC: No Primary Care Physician ~ Signed [facility] Work Phone: 1(833) 358-739809-13-2025 Evaluation note* Diagnosis Onset Date Resolution Status Admit Date A-fib acute December 7:31pm ACS (acute coronary syndrome) acute December 24, 2024 7:31pm Adult BMI 38.0-38.9 kg/sq m acute December 24, 2024 7:31pm Atrial flutter with rapid ventricular response acute December 122024 7:31pm Congestive heart failure (CHF) acute December 24, 2024 7:31pm NSTEMI (non-ST elevated myocardial infarction) acute December 24, 2024 7:31pm Sinus tachycardia acute Septemb er 2024 7:31pm Acute exacerbation of CHF (congestive heart failure) chronic Septe mber 2024 7:31pm Essential hypertension chronic Se ptember 2024 7:31pm [facility] Work Phone: 1(925) 333-302609-13-2025 Evaluation note* Diagnosis Onset Date Resolution Status Admit Date A-fib acute December 7:31pm ACS (acute coronary syndrome) acute December 24, 2024 7:31pm Adult BMI 38.0-38.9 kg/sq m acute December 24, 2024 7:31pm Congestive heart failure (CHF) acute December 24, 2024 7:31pm Sinus tachycardia acute Septemb er 2024 7:31pm Acute exacerbation of CHF (congestive heart failure) chronic Septe mber 2024 7:31pm Essential hypertension chronic Se ptember 2024 7:31pm Atrial flutter with rapid ventricular response inactive December 122024 7:31pm NSTEMI (non-ST elevated myocardial infarction) inactive December 24, 2024 7:31pm A-fib acute December 9:56am Congestive heart failure (CHF) acute January 05, 2025 9:56am Non-ischemic cardiomyopathy acute January 05, 2025 9:56am Essential hypertension chronic Se pt2024 9:56am [facility] Work Phone: 1(407) 947-621309-13-2025 History and physical note [facility] Medical Records Department [address] [place] [id number] H&P Exam - Hospitalist 12/24/24 1930 MR#: [id number] Acct: [id number] Name: SCARLETT LANDRY Rep #:[id number] : 1960 64 From: Abhi sorto DO PCP: Care Physician,No Primary Status :ADM IN Location: [place] [address] HPI - General General Date of Admission: 12/24/24 Date of Service: 12/24/24 Chief Complaint: Exertional dyspnea and lower extremity swelling HPI Narrative SCARLETT LANDRY, is a 64 M who presented to [facility] ED on 12/24/2024 with exertional dyspnea and lower extremity swelling. 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 Patient lives home with his . He has noticed increasing lower extremity swelling over thepast several weeks. He has now noticed worsening shortness of breath and chest discomfort with exertion overthe past several days. He also reports orthopnea. Has been taking his home Lasix as prescribed withgood urine output. Patient reports very occasional alcohol use now with last use about 2 months ago. Has never had sleep apnea testing done. In the ED today heart rate noted to be in the 120s, and EKG showed what appeared to be slow atrial flutter with 2:1 conduction. Chest x-ray with stable cardiomegaly with mild pulmonary vascular congestion. BNP 7117. Troponin trend 60 > 59. Given concern for new onset A-flutter, CHF and concern for NSTEMI, case was discussed with cardiology who recommended heparin drip for anticoagulation and n.p.o. for possible cath tomorrow. Hospitalist was then contacted for admission. I saw the patient at bedside in the ED, was present. Patient was sitting back comfortably in bed, conversing normally, in no acute distress. He was breathing comfortably onroom air at rest. On lung auscultation he had mild crackles noted in bilateral bases but otherwise good air movement throughout. Had +1-2 lower extremity pitting edema up to the upper calf noted. Deniedany other acute concerns currently. Will be admitted for further management. [facility] Medical History Essential hypertension History of ETOH abuse Elevated blood pressure reading Home Medications ?Medication ?Instructions ?Recorded ?Last Taken ?Type potassium chloride 20 mEq See Rx Instructions .Route 0 05/11/23 12/24/24 Rx tablet,extended .COMPLEX #90 tabs release(part/cryst) (Klor-Con M) lisinopril 10 mg tablet 10 mg PO BID #180 tabs 08/2312/24/24 Rx carvedilol 6.25 mg tablet 6.25 mg PO BID #180 TABLETS 08/23/24 12/24/24 Rx furosemide 40 mg tablet (Lasix) 40 mg PO DAILY #90 tab s 08/29/24 12/24/24 Rx Allergy/AdvReac Type Severity Reaction Status Date / Time No Known Allergies Allergy Verified 12/24/24 16:42 Family History Other COPD (chronic obstructive pulmonary disease) Heart disease Social History (Updated 12/24/24 @ 17:[address] Yuniel Hoffman MD) household members: spouse Smoking Status: Former smoker how long ago did patient quit smokin years ago alcohol intake: never substance use type: marijuana caffeine: No (None in the last couple of weeks) ROS Constitutional Constitutional: Reports fatigue; Denies chills, fever(s) or weakness Cardiovascular Cardiovascular: Reports dyspnea on exertion, edema and orthopnea; Denies chest pain, lightheadedness or palpitations Respiratory/Chest Respiratory/Chest: Reports shortness of breath with exertion; Denies cough, productive cough, shortness of breath at rest or wheezing Gastrointestinal Gastrointestinal: Denies abdominal pain Musculoskeletal Musculoskeletal: Denies arthralgias or myalgias Neurologic Neurologic: Denies dizziness, focal weakness or headache(s) Vital Signs Vital Signs Vital Signs: 12/24/24 16:41 12/24/24 17:03 12/24/24 17:49 Temperature 98.0 F Temperature Source Oral Pulse Rate 120 H 122 H Respiratory Rate 22 H 16 Respiratory Effort Normal Respiratory Depth Normal Respiratory Pattern Normal Blood Pressure 146/114 H 130/103 H Blood Pressure Mean 124 112 Pulse Ox 98 98 Oxygen Delivery Method Room Air Room Air Room Air 12/24/24 17:50 12/24/24 17:50 Temperature 98.8 F Temperature Source Oral Pulse Rate 122 H Respiratory Rate 16 Respiratory Effort Respiratory Depth Respiratory Pattern Blood Pressure 129/108 H Blood Pressure Mean 115 Pulse Ox 98 Oxygen Delivery Method Room Air Room Air Weight Weight: 122.742 kg Body Mass Index (BMI) 38.8 Physical Exam Const alert, oriented x3 and no apparent distress Constitutional Narrative: Pleasant upper middle-age male, class II obesity, mildly fatigued appearing but otherwise sitting back comfortably in bed, conversing normally, in no acute distress. General Appearance: cooperative and comfortable HEENT normocephalic, head/scalp atraumatic, hearing grossly normal bilaterally, nasal mucous membranes and turbinates normal and moist oral mucous membranes Eyes PERRL, EOMs intact bilaterally and conjunctivae normal Neck full ROM Chest inspection of chest normal Resp normal respiratory effort and no use of accessory muscles Resp Narrative: Breathing comfortably on room air at rest. Mild crackles noted in bilateral lung bases but otherwise good air movement throughout. Cardio no murmurs and peripheral pulses 2+ throughout Cardio Narrative: Tachycardic, regular rhythm. GI normal to inspection, nondistended, normoactive bowel sounds, soft to palpation,non-tender and non-distended Back/Spine normal ROM Extremity normal to inspection, full ROM and no pedal edema Skin no rashes or lesions noted Psych mental status grossly normal Results Lab / Micro Data 12/24/24 17:06 12/24/24 17:06 Labs: Laboratory Results - last 24 hr 12/24/24 17:06: WBC 9.9, RBC 4.81, Hgb 15.1, Hct 45.8, MCV 95.2 H, MCH 31.4, MCHC 33.0, RDW Std Deviation 49.7 H, RDW Coeff of Paz 14.2, Plt Count 253, MPV 11.3, Immature Gran % (Auto) 0.300, Neut % (Auto) 60.1, Lymph % (Auto) 27.8, Jennings % (Auto) 10.6 H, Eos % (Auto) 0.8, Baso % (Auto) 0.4, Absolute Neuts (auto) 6.0, Absolute Lymphs (auto) 2.76, Nucleated RBC % 0, Sodium 141, Potassium 4.6, Chloride 106, Carbon Dioxide 23.4, Anion Gap 12, BUN 27 H, Creatinine 1.37 H, Estim Creat Clear Calc 72.52, Est GFR (MDRD) Non-Af 58 L, BUN/Creatinine Ratio 19.4, Glucose 109 H, Calcium 10.1, Troponin T High Sens 60 H*, NT pro BNP II 7117 H Imaging Radiology Impression Chest X-Ray 12/24/24 17:55 IMPRESSION: Stable cardiomegaly with mild pulmonary vascular congestion. Reading Location: [facility] Assessment & Plan Assessment/Plan (1) Acute exacerbation of CHF (congestive heart failure): (2) Atrial flutter with rapid ventricular response: PLAN: Plan Patient is a 64-year-old male who presented [facility] ED on 12/24/2024 with exertional dyspnea and lower extremity swelling. 1. New onset A-fib/flutter with RVR with CHF exacerbation; elevated troponins; history of HFrEF with recovered ejection fraction secondary to alcohol cardiomyopathy; history of hypertension ? Admit under inpatient status to PCU. Cardiology consulted. History of severeHFrEF with dilated cardiomyopathy in July 2022 with EF 15 to 20%. Stress test then was negative. Had good recovery with medical therapy with last echo in October 2022 with EF 50%. It appears he was then lost to follow-up. Presentation now seems most consistent with CHF exacerbation secondary to tachycardia inducedcardiomyopathy in setting of new onset A-fib/flutter, possibly due to untreated DELVIN as below. Troponin 60 > 59, most likely elevated due to A- fib/flutter and CHF exacerbation, though cannot rule out coronary disease. EKG showed slow atrial flutter with rate in the 120s with 2:1 conduction. BNP 7117. Chest x-ray with mild pulmonary congestion. Patient satting well on room air at rest. Per cardiology, patient initiated on heparin drip and will keep n.p.o. overnightfor possible left heart cath tomorrow.Echo ordered. Will start IV Lasix 40 mgtwice daily, monitor daily BMP and urine output. Will also start Cardizem drip with goal rate less than 100. Will hold home Coreg and lisinopril for now. Appreciate further cardiology recommendations. 2. CKD stage IIIa ? Creatinine 1.37 on admit, baseline 1.2-1.3. Monitor daily BMP and urine output while on IV Lasix as above. 3. Class II obesity with suspected DELVIN ? BMI 38 on admit. Complicates hospital course and care. Patient with risk factors and history thatseem consistent with DELVIN. Cardiology recommended sleepstudy for further evaluation in 2022 but patient never had this done. Strongly recommend outpatient sleep study for further evaluation shortly after discharge. 4. History of alcohol abuse ? History of heavy alcohol use prior to hospitalization in 2022 as above. Patient reports very minimal alcohol use since then. Alcohol level 0 on admit. DVT prophylaxis: Not indicated, on heparin drip CODE STATUS: Full code, verified Expected disposition: Home, TBD Total clinical time spent by myself addressing the patient's medical issues, reviewing all the data, and collaborating with patient's care team: 81 minutes. Charges/Coding Visit Charges Inpatient E&M: 02483 Init Hosp L3 12/24/24 2100 Cosigner Signature (if applicable): CC: Dr. Abhi Chong, ; No Primary Care Physician~ Signed [facility]09-13-2025 Discharge summary [facility] Medical Records Department [address] [place] [address] Emergency Department Summary 12/24/24 MR#: [id number] Acct: [id number] Name: SCARLETT LANDRY #:[id number] : 1960 64 From: Yuniel Hoffman MD PCP: Care Physician,No Primary Status :REG ER Location: ED HPI History of Present Illness Chief Complaint: Chest Pain Informant: patient and spouse/S.O. Onset/Context/Timing Onset: Days (Exertional indigestion and dyspnea for the past 2 to 3 days) and Weeks (Pedal edema past week) Activity at onset: sudden (Exertional indigestion with dyspnea) and gradual (Swelling of his lower extremities) Timing: Intermittent Quality: Positive for Indigestion Location: Substernal (Inferior substernal region/left parasternal region) Current Severity: Gone Maximum Severity: Moderate Worsened By: Exertion; Not Worsened By Movement of Arm, Movement of Torso, Eating, Palpation, Breathing or Coughing Relieved By: Rest (Resolved after 5 to 10 minutes of rest) Associated Symptoms: Positive for Dyspnea; Negative for Nausea, Vomiting, Diaphoresis, Cough, Fever, Lightheadedness, Acid Reflux or Palpitations Narrative Narrative: Patient is a poor informant. He states he is seen by Dr. Miller. on. He admits to congestive heart failure and hypertension. He does not know why he is on carvedilol. His last echo was performed October 29, 2022. Patient had mild dilated left ventricle with mild concentric left ventricular hypertrophy and an estimated ejection fraction of 50%. The left atrium was severely enlarged and the right atrium is enlarged. Patient had a pharmacologic stress test performedMa2022. Revealed small area of perfusion abnormality at the apex which is minimally worse post Lexiscan. There was no significant reversible perfusion defect noted. The gated Cardiolite study revealed an LVEF of 32%. Patient presents because of swelling, dyspnea and indigestion with exertion. Hestates if he goes upan incline he gets indigestion and he localizes it to the inferior sternal left parasternal region.It does not radiate. It is associated with shortness of breath. He states he has trouble getting his breath. His symptoms resolved after 5 to 10 minutes of rest. He has no known history of coronary disease. He and his states he has never had a cardiac catheterization. He has no history of atrial fibrillation or atrial flutter. Patient denies history of peptic ulcers, GERD, hiatal hernia. Patient denies intolerance to greasy or fried foods. Patient does have stable two-pillow orthopnea. He is also concerned because of increased swelling of his lower extremities. He is on furosemide. He reports compliance. Prior Similar Symptoms: No Recent Illness/Hospitalization: No CVD Risk Factors: Positive for Hypertension; Negative for Diabetes, Hypercholesterolemia or Family History 1' PE Risk Factors: Negative for Recent Travel/Surgery, Recent Immobilization, Prior DVT or PE, Cancer or OCP + Smoking + >/=35 TAD Risk Factors: Positive for Hypertension; Negative for Marfan's Syndrome or Family History PFSH PFSH Medical History Essential hypertension History of ETOH abuse Elevated blood pressure reading Home Medications ?Medication ?Instructions ?Recorded ?Last Taken ?Type potassium chloride 20 mEq See Rx Instructions .Route 0 05/11/23 12/24/24 Rx tablet,extended .COMPLEX #90 tabs release(part/cryst) (Klor-Con M) lisinopril 10 mg tablet 10 mg PO BID #180 tabs 08/2312/24/24 Rx carvedilol 6.25 mg tablet 6.25 mg PO BID #180 TABLETS 08/23/24 12/24/24 Rx furosemide 40 mg tablet (Lasix) 40 mg PO DAILY #90 tab s 08/29/24 12/24/24 Rx Allergy/AdvReac Type Severity Reaction Status Date / Time No Known Allergies Allergy Verified 12/24/24 16:42 Family History Other COPD (chronic obstructive pulmonary disease) Heart disease Social History (Updated 12/24/24 @ 17:[address] Yuniel Hoffman MD) household members: spouse Smoking Status: Former smoker how long ago did patient quit smokin years ago alcohol intake: never substance use type: marijuana caffeine: No (None in the last couple of weeks) ROS ROS ED Constitutional Constitutional ED: Denies chills, fever(s), subjective or sweats Eyes Eyes: Reports none ENT ENT ED: Denies rhinorrhea or sore throat Cardiovascular Cardiovascular: Reports as per HPI and orthopnea; Denies paroxysmal nocturnal dyspnea Respiratory/Chest Respiratory/Chest: Reports dyspnea on exertion and orthopnea; Denies cough, dyspnea or paroxysmal nocturnal dyspnea Gastrointestinal Gastrointestinal: Denies abdominal pain, melena, nausea or vomiting Musculoskeletal Musculoskeletal: Denies arthralgias, back pain, myalgias or neck pain Integumentary Denies rash Neurologic Neurologic: Denies weakness Hematologic/Lymphatic Hematologic/Lymphatic: Denies easy bleeding or easy bruising EXAM Physical Exam Const Vital Signs: 12/24/24 16:41 12/24/24 17:03 12/24/24 17:49 Temperature 98.0 F Temperature Source Oral Pulse Rate 120 H 122 H Respiratory Rate 22 H 16 Respiratory Effort Normal Respiratory Depth Normal Respiratory Pattern Normal Blood Pressure 146/114 H 130/103 H Blood Pressure Mean 124 112 Pulse Ox 98 98 Oxygen Delivery Method Room Air Room Air Room Air 12/24/24 17:50 12/24/24 17:50 Temperature 98.8 F Temperature Source Oral Pulse Rate 122 H Respiratory Rate 16 Respiratory Effort Respiratory Depth Respiratory Pattern Blood Pressure 129/108 H Blood Pressure Mean 115 Pulse Ox 98 Oxygen Delivery Method Room Air Room Air Positive well nourished and well developed Constitutional Narrative: BMI is 38.8. He appears in no distress. Blood pressure is elevated 146/114 andheart rate is 120. General Appearance ED: well developed; Negative for pallor HEENT Reports moist mucous membranes normocephalic and atraumatic Eyes PERRL and EOMs intact bilaterally General Eye ED: Negative for pale conjunctiva or scleral icterus Neck no lymphadenopathy, supple and no JVD Chest Wall inspection of chest normal and palpation of chest normal Resp normal respiratory effort and No clear to auscultation bilaterally Auscultation: rales bilateral base Cardio regular rhythm, S1 normal heart sound, S2 normal heart sound and no murmurs Rate: tachycardic Peripheral Pulses: pulses 2+ throughout GI normal to inspection, nondistended, normoactive bowel sounds, soft to palpation,non-tender, non-distended and no masses; Negative for hepatosplenomegaly Back/Spine Back/Spine Narrative: Inspection of the back is normal. Extremity General Extremety ED: Yes edema General Extremity: edema bilateral lower extremity Details: moderate Neuro oriented x3 and CN's II-XII intact bilaterally Sensorium / Orientation: awake and alert Psych mental status grossly normal Skin no rashes or lesions noted and no wounds General Skin Exam: Negative for jaundice or pallor MDM MDM MDM Narrative Medical decision making narrative: Patient is EKG reveals possible atypical a flutter with 2-1 block with a rate of123. Patient's history is concerning for new onset exertional angina. Will obtain cardiac markers. CBC to assess H&H and white count. BMP to assess renalfunction. Because of the bibasilar rales chest x-ray was obtained to assess forevidence of heart failure. Also obtained a BNP. History & Record Review Additional record(s) reviewed:: Prior outpatient record (Documented HPI narrative) and Prior labs Lab Data Attestation: I reviewed the patient's lab results. Lab results narrative: CBC is unremarkable. Basic metabolic panel is elevated BUN/creatinine of 27 and1.37. First troponinis elevated at 60. BNP is elevated at 7117. Labs: Laboratory Results - last 24 hr 12/24/24 17:06 WBC 9.9 RBC 4.81 Hgb 15.1 Hct 45.8 MCV 95.2 H MCH 31.4 MCHC 33.0 RDW Std Deviation 49.7 H RDW Coeff of Paz 14.2 Plt Count 253 MPV 11.3 Immature Gran % (Auto) 0.300 Neut % (Auto) 60.1 Lymph % (Auto) 27.8 Jennings % (Auto) 10.6 H Eos % (Auto) 0.8 Baso % (Auto) 0.4 Absolute Neuts (auto) 6.0 Absolute Lymphs (auto) 2.76 Nucleated RBC % 0 Sodium 141 Potassium 4.6 Chloride 106 Carbon Dioxide 23.4 Anion Gap 12 BUN 27 H Creatinine 1.37 H Estim Creat Clear Calc 72.52 Est GFR (MDRD) Non-Af 58 L BUN/Creatinine Ratio 19.4 Glucose 109 H Calcium 10.1 Troponin T High Sens 60 H* NT pro BNP II 7117 H Radiography Chest X-Ray - ED: 2 View, Read by ED Physician (There are some minimal chronic changes. There is mild cardiomegaly. Cardiac silhouette is normal. Lung parenchyma reveals no infiltrate, cephalization,curly B-lines and there is no effusion. Thoracic spine reveals degenerative changes. There is no acute osseous abnormalities noted. Independen), Unchanged, Mediastinum and No Acute Disease Diagnostic Testing: Clinical Impression(s) from Imaging Studies Chest X-Ray 12/24/24 17:55 IMPRESSION: Stable cardiomegaly with mild pulmonary vascular congestion. Reading Location: [facility] EKG Initial EKG: Attestation: I personally reviewed and interpreted this EKG as follows: Interpretation: - (Wide-complex tachycardia. Rate is 123. This may represent an atypical atrial flutter with 2-1 block. There is evidence of left bundle branch block. QRS durations 144 ms. QRS duration 432 ms. [place] is normal.) Management Discussion w/another healthcare provider: Hospitalist (Dr. Chong the admitting hospitalist was made aware where patient's history physical and discussion with cardiology. Full admit PCU) and Staff Technologist (Spoke with senior salesforce developer on-call Dr. Colmenares. He was informed of patient's history, physical and concerns. Agrees with anticoagulation. He will see patient in the morning. Patient be admitted to hospital) Treatment and Re-Evaluation :: Aspirin, heparin, beta-yosef Critical Care Time Critical Care Time: Yes Critical care time (excluding procedures): 30-74 minutes (32), Including time spent: (History, physical, documentation, review of prior records, independent or potation laboratory results, treatment for ACS and CHF), Discussing w/Patient&/or Family/Director Emergency, Discussing w/Consultants (Cardiology and hospitalist) and Arranging Admission or Transfer Discharge Plan Dx/Rx/DC Orders Clinical Impression: ACS (acute coronary syndrome), Essential hypertension, Acute exacerbation of CHF (congestive heart failure), Sinus tachycardia, Adult BMI 38.0-38.9 kg/sq m Disposition Disposition: Acute Care Hospital [facility] What to do if you have Problems For any increased pain, shortness of breath, bleeding, nausea or vomiting, chestpain, or any unexpected problems, contact your Primary Care Provider. Call [facility] ([phone]) or report tothe closest Emergency Room. Call 911 if necessary. 12/24/241931 Cosigner Signature (if applicable): CC: No Primary Care Physician ~ Signed [facility]09-13-2025 Radiology Diagnostic study note [facility] Imaging Services [address] [place] [address] Chest PA and Lateral MR#: [id number] Acct: [id number] Name: LANDRYSCARLETT YVAN Rep #: [id number] : 1960 M 64 From: Dylon Wei MD PCP: Care Physician,No Primary Status: REG ER Study:Chest PA and Lateral Date of Exam: 12/24/24 Exam# [id number] Ordering Dr: Gabriella Hoffman MD PROCEDURE: CHEST PA AND LATERAL 12/24/2024 REASON FOR EXAM: CHEST PAIN TECHNIQUE: Procedure Code: RADCXR Modality: DX Procedure: CHEST PA AND LATERAL COMPARISON: Chest x-ray 07/14/2022 FINDINGS: Hardware: None. Heart: The heart is enlarged but stable. Mediastinum: The mediastinal contour is unremarkable. Lungs: Mild pulmonary vascular congestion. No focal consolidation, pneumothorax, or effusion. Bones: The bones are unremarkable. RAD/Chest PA and Lateral IMPRESSION: Stable cardiomegaly with mild pulmonary vascular congestion. Reading Location: [facility] CC: Dr. Yuniel Hoffman MD; No Primary Care Physician ~ Wastewater Design Engineer: Signed [facility]09-13-2025 Discharge summary Author Yuniel Hoffman [facility] Note Date/Time December 24, 2024 7:32pm [facility] Medical Records Department [address] [place] [address] Emergency Department Summary 12/24/24 MR#: [id number] Acct: [id number] Name: SCARLETT LANDRY Rep #:[id number] : 1960 64 From: Yuniel Hoffman MD PCP: Care Physician,No Primary Status :REG ER Location: ED HPI History of Present Illness Chief Complaint: Chest Pain Informant: patient and spouse/S.O. Onset/Context/Timing Onset: Days (Exertional indigestion and dyspnea for the past 2 to 3 days) and Weeks (Pedal edema past week) Activity at onset: sudden (Exertional indigestion with dyspnea) and gradual (Swelling of his lower extremities) Timing: Intermittent Quality: Positive for Indigestion Location: Substernal (Inferior substernal region/left parasternal region) Current Severity: Gone Maximum Severity: Moderate Worsened By: Exertion; Not Worsened By Movement of Arm, Movement of Torso, Eating, Palpation, Breathing or Coughing Relieved By: Rest (Resolved after 5 to 10 minutes of rest) Associated Symptoms: Positive for Dyspnea; Negative for Nausea, Vomiting, Diaphoresis, Cough, Fever, Lightheadedness, Acid Reflux or Palpitations Narrative Narrative: Patient is a poor informant. He states he is seen by Dr. Miller. on. He admits to congestive heart failure and hypertension. He does not know why he is on carvedilol. His last echo was performed October 29, 2022. Patient had mild dilated left ventricle with mild concentric left ventricular hypertrophy and an estimated ejection fraction of 50%. The left atrium was severely enlarged and the right atrium is enlarged. Patient had a pharmacologic stress test performedMa2022. Revealed small area of perfusion abnormality at the apex which is minimally worse post Lexiscan. There was no significant reversible perfusion defect noted. The gated Cardiolite study revealed an LVEF of 32%. Patient presents because of swelling, dyspnea and indigestion with exertion. Hestates if he goes up an incline he gets indigestion and he localizes it to the inferior sternal left parasternal region. It does not radiate. It is associated with shortness of breath. He states he has trouble getting his breath. His symptoms resolved after 5 to 10 minutes of rest. He has no known history of coronary disease. He and his states he has never had a cardiac catheterization. He has no history of atrial fibrillation or atrial flutter. Patient denies history of peptic ulcers, GERD, hiatal hernia. Patient denies intolerance to greasy or fried foods. Patient does have stable two-pillow orthopnea. He is also concerned because of increased swelling of his lower extremities. He is on furosemide. He reports compliance. Prior Similar Symptoms: No Recent Illness/Hospitalization: No CVD Risk Factors: Positive for Hypertension; Negative for Diabetes, Hypercholesterolemia or Family History 1' </=55 PE Risk Factors: Negative for Recent Travel/Surgery, Recent Immobilization, Prior DVT or PE, Cancer or OCP + Smoking + >/=35 TAD Risk Factors: Positive for Hypertension; Negative for Marfan's Syndrome or Family History [facility] Medical History Essential hypertension History of ETOH abuse Elevated blood pressure reading Home Medications ?Medication ?Instructions ?Recorded ?Last Taken ?Type potassium chloride 20 mEq See Rx Instructions .Route 0 05/11/23 12/24/24 Rx tablet,extended .COMPLEX #90 tabs release(part/cryst) (Klor-Con M) lisinopril 10 mg tablet 10 mg PO BID #180 tabs 08/2312/24/24 Rx carvedilol 6.25 mg tablet 6.25 mg PO BID #180 TABLETS 08/23/24 12/24/24 Rx furosemide 40 mg tablet (Lasix) 40 mg PO DAILY #90 tab s 08/29/24 12/24/24 Rx Allergy/AdvReac Type Severity Reaction Status Date / Time No Known Allergies Allergy Verified 12/24/24 16:42 Family History Other COPD (chronic obstructive pulmonary disease) Heart disease Social History (Updated 12/24/24 @ 17:[address] Yuniel Hoffman MD) household members: spouse Smoking Status: Former smoker how long ago did patient quit smokin years ago alcohol intake: never substance use type: marijuana caffeine: No (None in the last couple of weeks) ROS ROS ED Constitutional Constitutional ED: Denies chills, fever(s), subjective or sweats Eyes Eyes: Reports none ENT ENT ED: Denies rhinorrhea or sore throat Cardiovascular Cardiovascular: Reports as per HPI and orthopnea; Denies paroxysmal nocturnal dyspnea Respiratory/Chest Respiratory/Chest: Reports dyspnea on exertion and orthopnea; Denies cough, dyspnea or paroxysmal nocturnal dyspnea Gastrointestinal Gastrointestinal: Denies abdominal pain, melena, nausea or vomiting Musculoskeletal Musculoskeletal: Denies arthralgias, back pain, myalgias or neck pain Integumentary Denies rash Neurologic Neurologic: Denies weakness Hematologic/Lymphatic Hematologic/Lymphatic: Denies easy bleeding or easy bruising EXAM Physical Exam Const Vital Signs: 12/24/24 16:41 12/24/24 17:03 12/24/24 17:49 Temperature 98.0 F Temperature Source Oral Pulse Rate 120 H 122 H Respiratory Rate 22 H 16 Respiratory Effort Normal Respiratory Depth Normal Respiratory Pattern Normal Blood Pressure 146/114 H 130/103 H Blood Pressure Mean 124 112 Pulse Ox 98 98 Oxygen Delivery Method Room Air Room Air Room Air 12/24/24 17:50 12/24/24 17:50 Temperature 98.8 F Temperature Source Oral Pulse Rate 122 H Respiratory Rate 16 Respiratory Effort Respiratory Depth Respiratory Pattern Blood Pressure 129/108 H Blood Pressure Mean 115 Pulse Ox 98 Oxygen Delivery Method Room Air Room Air Positive well nourished and well developed Constitutional Narrative: BMI is 38.8. He appears in no distress. Blood pressure is elevated 146/114 andheart rate is 120. General Appearance ED: well developed; Negative for pallor HEENT Reports moist mucous membranes normocephalic and atraumatic Eyes PERRL and EOMs intact bilaterally General Eye ED: Negative for pale conjunctiva or scleral icterus Neck no lymphadenopathy, supple and no JVD Chest Wall inspection of chest normal and palpation of chest normal Resp normal respiratory effort and No clear to auscultation bilaterally Auscultation: rales bilateral base Cardio regular rhythm, S1 normal heart sound, S2 normal heart sound and no murmurs Rate: tachycardic Peripheral Pulses: pulses 2+ throughout GI normal to inspection, nondistended, normoactive bowel sounds, soft to palpation,non-tender, non-distended and no masses; Negative for hepatosplenomegaly Back/Spine Back/Spine Narrative: Inspection of the back is normal. Extremity General Extremety ED: Yes edema General Extremity: edema bilateral lower extremity Details: moderate Neuro oriented x3 and CN's II-XII intact bilaterally Sensorium / Orientation: awake and alert Psych mental status grossly normal Skin no rashes or lesions noted and no wounds General Skin Exam: Negative for jaundice or pallor MDM MDM MDM Narrative Medical decision making narrative: Patient is EKG reveals possible atypical a flutter with 2-1 block with a rate of123. Patient's history is concerning for new onset exertional angina. Will obtain cardiac markers. CBC to assess H&H and white count. BMP to assess renalfunction. Because of the bibasilar rales chest x-ray was obtained to assess forevidence of heart failure. Also obtained a BNP. History & Record Review Additional record(s) reviewed:: Prior outpatient record (Documented HPI narrative) and Prior labs Lab Data Attestation: I reviewed the patient's lab results. Lab results narrative: CBC is unremarkable. Basic metabolic panel is elevated BUN/creatinine of 27 and1.37. First troponin is elevated at 60. BNP is elevated at 7117. Labs: Laboratory Results - last 24 hr 12/24/24 17:06 WBC 9.9 RBC 4.81 Hgb 15.1 Hct 45.8 MCV 95.2 H MCH 31.4 MCHC 33.0 RDW Std Deviation 49.7 H RDW Coeff of Paz 14.2 Plt Count 253 MPV 11.3 Immature Gran % (Auto) 0.300 Neut % (Auto) 60.1 Lymph % (Auto) 27.8 Jennings % (Auto) 10.6 H Eos % (Auto) 0.8 Baso % (Auto) 0.4 Absolute Neuts (auto) 6.0 Absolute Lymphs (auto) 2.76 Nucleated RBC % 0 Sodium 141 Potassium 4.6 Chloride 106 Carbon Dioxide 23.4 Anion Gap 12 BUN 27 H Creatinine 1.37 H Estim Creat Clear Calc 72.52 Est GFR (MDRD) Non-Af 58 L BUN/Creatinine Ratio 19.4 Glucose 109 H Calcium 10.1 Troponin T High Sens 60 H* NT pro BNP II 7117 H Radiography Chest X-Ray - ED: 2 View, Read by ED Physician (There are some minimal chronic changes. There is mild cardiomegaly. Cardiac silhouette is normal. Lung parenchyma reveals no infiltrate, cephalization, curly B-lines and there is no effusion. Thoracic spine reveals degenerative changes. There is no acute osseous abnormalities noted. Independen), Unchanged, Mediastinum and No Acute Disease Diagnostic Testing: Clinical Impression(s) from Imaging Studies Chest X-Ray 12/24/24 17:55 IMPRESSION: Stable cardiomegaly with mild pulmonary vascular congestion. Reading Location: [facility] EKG Initial EKG: Attestation: I personally reviewed and interpreted this EKG as follows: Interpretation: - (Wide-complex tachycardia. Rate is 123. This may represent an atypical atrial flutter with 2-1 block. There is evidence of left bundle branch block. QRS durations 144 ms. QRS duration 432 ms. [place] is normal.) Management Discussion w/another healthcare provider: Hospitalist (Dr. Chong the admitting hospitalist was made aware where patient's history physical and discussion with cardiology. Full admit PCU) and Staff Technologist (Spoke with senior salesforce developer on-call Dr. Colmenares. He was informed of patient's history, physical and concerns. Agrees with anticoagulation. He will see patient in the morning. Patient be admitted to hospital) Treatment and Re-Evaluation :: Aspirin, heparin, beta-yosef Critical Care Time Critical Care Time: Yes Critical care time (excluding procedures): 30-74 minutes (32), Including time spent: (History, physical, documentation, review of prior records, independent or potation laboratory results, treatment for ACS and CHF), Discussing w/Patient&/or Family/Director Emergency, Discussing w/Consultants (Cardiology and hospitalist) and Arranging Admission or Transfer Discharge Plan Dx/Rx/DC Orders Clinical Impression: ACS (acute coronary syndrome), Essential hypertension, Acute exacerbation of CHF (congestive heart failure), Sinus tachycardia, Adult BMI 38.0-38.9 kg/sq m Disposition Disposition: Acute Care Hospital [facility] What to do if you have Problems For any increased pain, shortness of breath, bleeding, nausea or vomiting, chestpain, or any unexpected problems, contact your Primary Care Provider. Call [facility] ([phone]) or report to the closest Emergency Room. Call 911 if necessary. 12/24/241931 <Electronically signed by Yuniel Hoffman MD> Cosigner Signature (if applicable): CC: No Primary Care Physician ~ Signed [facility] Work Phone: 1(242) 274-668804-05-[address] Ro [facility] July 16, 2022 2:01pm Note Date/Time July 16, 2022 2:01 pm [facility] Medical Records Department [address] [place] [address] Discharge Summary 07/16/22 1359 MR#: [id number] Acct: [id number] Name: SCARLETT LANDRY Rep #:[id number] : 1960 62 From: Khai Ro MD PCP: Care Physician,No Primary Status :ADM IN Location: [place] [address] Providers Date of Admission: 07/14/22 Date of [...] % (Auto) 60.9, Lymph % (Auto) 23.7, Jennings % (Auto) 12.6 H, Eos % (Auto) [...] insufficiency. Ordering Physician: Aren Valderrama Referring Physician: No PCP Performed By: Emerson Sow RCS D/C Instructions Discharge Diet: 8 Cup Fluid Restriction and 2000 mg Sodium Diet Discharge Activity: Return to Normal Activity Call your doctor if you observe: Fever of 101 or Higher, Shortness of breath, Fainting spells and Chest pain Meaningful Use Info Meaningful Use Diagnoses (Choose all that apply): CHF CHF EMIL/ARB ordered at discharge?: Yes Documented LVEF (%): [...] Self Care Charges/Coding Visit Charges Inpatient E&M: 69603 Disch Hosp >30min 07/16/22 1401 <Electronically signed by Khai Ro MD> Cosigner Signature (if applicable): CC: Dr. Khai Ro MD; No Primary Care Physician~ Signed [facility] Work Phone: 1(332) 233-535404-05-[address] Ro [facility] July 16, 2022 10:43am Note Date/Time July 16, 2022 7:40 am [facility] Medical Records Department [address] [place] [address] Progress Note - Hospitalist 07/16/22 0740 MR#: [id number] Acct: [id number] Name: SCARLETT LANDRY Rep #:[id number] : 1960 62 From: Khai Ro MD PCP: Care Physician,No Primary Status :ADM IN Location: [place] [address] Reason for Visit Reason for Visit: Diagnoses [...] % (Auto) 60.9, Lymph % (Auto) 23.7, Jennings % (Auto) 12.6 H, Eos % (Auto) [...] insufficiency. Ordering Physician: Aren Valderrama Referring Physician: Katie PCP Performed By: Emerson Sow RCS Physical [...] documentation, 55Minutes Charges/Coding Visit Charges Inpatient E&M: 21400 Subs Hosp L3 07/16/22 1043 <Electronically signed by Khai Ro MD> Cosigner Signature (if applicable): CC: ~ Signed [facility] Work Phone: 1(128) 428-785704-05-[address] Miller [facility] July 16, 2022 10:16am Note Date/Time July 16, 2022 10:1 4am [facility] Medical Records Department [address] [place] [address] Consultation - Cardiology 07/16/22 1007 MR#: [id number] Acct: [id number] Name: SCARLETT LANDRY Rep #:[id number] : 1960 62 From: Tim Miller MD PCP: Care Physician,No Primary Status :ADM IN Location: [place] [address] Assessment & Plan Assessment/Plan (1) Congestive heart failure (CHF): QUALIFIERS: Heart failure type: systolic Heart failure chronicity: acute Qualified Code(s): I50.21 - Acute systolic (congestive) heartfailure PLAN: Functional class III. Agree with diuresis. Titrate EMIL inhibitors upwardas tolerated. Start on SGLT2 inhibitor. Introduce low-dose beta-blockers. 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 However will need to rule out coronary artery disease. Will consider coronary angiography versus stress test as outpatient. (2) Hypertension: PLAN: Increase EMIL inhibitor's as tolerated. Introduce low-dose beta-blockers. (3) [...] drinking about a month ago. [facility] Medical History no medical history Home Medications [...] % (Auto) 60.9, Lymph % (Auto) 23.7, Jennings % (Auto) 12.6 H, Eos % (Auto) [...] % (Auto) 60.9, Lymph % (Auto) 23.7, Jennings % (Auto) 12.6 H, Eos % (Auto) [...] insufficiency. Ordering Physician: Aren Valderrama Referring Physician: Katie PCP Performed By: Emerson Sow RCS 07/16/22 1016 <Electronically signed by Tim Miller MD> Cosigner Signature (if applicable): CC: Dr. Tim Miller MD; Dr. Aren Valderrama MD; No Primary Care Physician~ Signed [facility] Work Phone: 1(125) 430-893804-04-[address] Ro [facility] July 15, 2022 11:53am Note Date/Time July 15, 2022 7:56 am [facility] Medical Records Department [address] [place] [address] Progress Note - Hospitalist 07/15/22 0753 MR#: [id number] Acct: [id number] Name: SCARLETT LANDRY Rep #:[id number] : 1960 62 From: Khai Ro MD PCP: Care Physician,No Primary Status :ADM IN Location: [place] [address] Reason for Visit Reason for Visit: Diagnoses [...] % (Auto) 62.5, Lymph % (Auto) 24.4, Jennings % (Auto) 11.4 H, Eos % (Auto) [...] % (Auto) 62.5, Lymph % (Auto) 22.7, Jennings % (Auto) 12.1 H, Eos % (Auto) [...] documentation, 55Minutes Charges/Coding Visit Charges Inpatient E&M: 66630 Subs Hosp L3 07/15/22 1153 <Electronically signed by Khai Ro MD> Cosigner Signature (if applicable): CC: ~ Signed [facility] Work Phone: 1(327) 866-163504-03-[address] Moise [facility] July 14, 2022 8:56pm Note Date/Time July 14, 2022 5:38 pm [facility] Medical Records Department [address] [place] [address] Emergency Department Summary 07/14/22 MR#: [id number] Acct: [id number] Name: SCARLETT LANDRY Rep #:[id number] : 1960 62 From: Marques Moise DO PCP: Care Physician,No Primary Status :ADM IN Location: [place] [address] HPI History of Present Illness Chief Complaint: [...] Const Vital Signs: 07/14/22 15:25 07/14/22 17:04 04/03/23 17:06 Temperature 98 F Temperature Source Temporal [...] % (Auto) 62.5 Lymph % (Auto) 24.4 Jennings % (Auto) 11.4 H Eos % (Auto) [...] 19:26 EDT Reading Location ID and State: [facility] / [place] , Service support , Discharge Plan Triage Chief Complaint: Shortness of Breath Other Complaint: Edema ED Provider: Marques Moise Dx/Rx/DC Orders Primary Care Provider: Care Physician,No Primary What to do if you have Problems For any increased pain, shortness of breath, bleeding, nausea or vomiting, chestpain, or any unexpected problems, contact your Primary Care Provider. Call [facility] ([phone]) or report to the closest Emergency Room. Call 911 if necessary. 07/14/222055 <Electronically signed by Marques Moise DO> Cosigner Signature (if applicable): CC: No Primary Care Physician ~ Signed [facility] Work Phone: [phone] 741-751404-03-2023 History and physical note Author Dr. Valderrama [facility] July 14, 2022 8:25pm Note Date/Time July 14, 2022 7:42 pm [facility] Medical Records Department [address] [place] [address] H&P Exam - Hospitalist 07/14/221940 MR#: [id number] Acct: [id number] Name: SCARLETT LANDRY Rep #:[id number] : 1960 62 From: Aren Valderrama MD PCP: Care Physician,No Primary Status :ADM IN Location: [facility] [id number] HPI - General General Date of [...] He denies any chest pain. [facility] Medical History no medical history no medical [...] % (Auto) 62.5, Lymph % (Auto) 24.4, Jennings % (Auto) 11.4 H, Eos % (Auto) [...] TSH and lipid panel. Trend blood pressure Emil wrap to bilateral lower extremities; elevate bilateral [...] modification recommended. Charges/Coding Visit Charges Inpatient E&M: 51014 Init Hosp L3 07/14/222024 <Electronically signed by Aren Valderrama MD> Cosigner Signature (if applicable): CC: Dr. Aren Valderrama MD; No Primary Care Physician~ Signed [facility] Work Phone: 1(128) [phone] Moise [facility] July 14, 2022 8:56pm Note Date/Time July 14, 2022 5:38 pm [facility] Medical Records Department [address] [place] [address] Emergency Department Summary 07/14/22 MR#: [id number] Acct: [id number] Name: SCARLETT LANDRY Rep #:[id number] : 1960 62 From: Marques Moise DO PCP: Care Physician,No Primary Status :ADM IN Location: [place] [address] HPI History of Present Illness Chief Complaint: [...] % (Auto) 62.5 Lymph % (Auto) 24.4 Jennings % (Auto) 11.4 H Eos % (Auto) [...] Steven Meek MD at 19:26 EDT , Discharge Plan Triage Chief Complaint: Shortness of Breath Other Complaint: Edema ED Provider: Marques Moise Dx/Rx/DC Orders Primary Care Provider: Care Physician,No Primary What to do if you have Problems For any increased pain, shortness of breath, bleeding, nausea or vomiting, chestpain, or any unexpected problems, contact your Primary Care Provider. Call [facility] ([phone]) or report to the closest Emergency Room. Call 911 if necessary. 07/14/222055 <Electronically signed by Marques Moise DO> Cosigner Signature (if applicable): CC: No Primary Care Physician ~ Signed [facility] Work Phone: [phone] NoteHNO ID: [id number] Author: Michelle Figueroa PA-C Service: ? Author Type: Physician Bark Grinder Type: Progress Notes Filed: 07/14/2022 3:05 PM [...] emergency department. His will take him to [facility]. Vital signs stable here. BP 138/98 Pulse 92 Temp 36.7 ?C (98 ?F) Resp 18 Wt 134.7 kg (297 lb) SpO2 97%[facility]04-03-2023 History of Present illness Narrative* Michelle [...] emergency department. His will take him to [facility]. Vital signs stable here. BP 138/98 Pulse 92 Temp 36.7 C (98 F) Resp 18 Wt 134.7 kg (297 lb) SpO2 97% [facility] [place] [facility]* Diagnosis Onset Date Resolution Status Congestive heart failure (CHF) acute Elevated blood pressure reading acute Morbid obesity due to excess calories acute [facility] Work Phone: Evaluation note* Diagnosis Peripheral edema- Primary Edema SOB (shortness of breath) Shortness of breath documented in this encounter [facility] [place] [facility]* Diagnosis Onset Date Resolution Status Congestive heart failure (CHF) acute Elevated blood pressure reading acute History of ETOH abuse acute Morbid obesity due to excess calories acute Hypertension chronic [facility] Work Phone: Evaluation note* Diagnosis Onset Date Resolution Status Congestive heart failure (CHF) acute Morbid obesity due to excess calories chronic Congestive heart failure (CHF) acute Essential hypertension chron ic [facility] Work Phone: Evaluation note* Diagnosis Onset Date Resolution Status Admit Date ACS (acute coronary syndrome) acute December 24, 2024 7:31pm Adult BMI 38.0-38.9 kg/sq m acute December 24, 2024 7:31pm Sinus tachycardia acute Septemb er 2024 7:31pm Acute exacerbation of CHF (congestive heart failure) chronic Septe mber 2024 7:31pm Essential hypertension chronic Se ptember 2024 7:31pm [facility] Work Phone: History and physical note Author Dr. Valderrama [facility] July 14, 2022 8:25pm Note Date/Time July 14, 2022 7:42 pm [facility] Medical Records Department [address] [place] [address] H&P Exam - Hospitalist 07/14/221940 MR#: [id number] Acct: [id number] Name: SCARLETT LANDRY Rep #:[id number] : 1960 62 From: Aren Valderrama MD PCP: Care Physician,No Primary Status :ADM IN Location: [place] [id number]- [id number] HPI - General General Date of [...] He denies any chest pain. [facility] Medical History no medical history no medical [...] % (Auto) 62.5, Lymph % (Auto) 24.4, Jennings % (Auto) 11.4 H, Eos % (Auto) [...] TSH and lipid panel. Trend blood pressure Emil wrap to bilateral lower extremities; elevate bilateral [...] modification recommended. Charges/Coding Visit Charges Inpatient E&M: 76590 Init Hosp L3 07/14/222024 <Electronically signed by Aren Valderrama MD> Cosigner Signature (if applicable): CC: Dr. Aren Valderrama MD; No Primary Care Physician~ Signed [facility] Work Phone: Hospital Discharge instructionsAdditional [facility]ructions [facility]: [facility] note Author Jessika White [facility] Note Date/Time January 05, 2025 10:57am [facility] [address] [place] [address] OFFICE VISIT Date of Service: 01/05/25 MR#: [id number] Acct: [id number] Name: SCARLETT LANDRY Rep #: [id number] : 1960 Provider: ESTEFANY White Age/Sex: 64/M Location: [facility] Status: Signed HPI HPI History of Present Illness Surgical H&P: Yes Details: This is a 64-year-old male who presents the office today for a posthospital follow-up. He presented to [facility] on 07/14/2022 for shortness of breath, orthopnea, and lower extremity swelling. His high sensory troponin was noted to be 73 and his BNP was noted to be 896. He was admitted for furtherevaluation regarding CHF. Echocardiogram on 07/14/2022 showed ejection fraction 15-20% with severe global hypokinesis of left ventricle. He was noted to have mildly enlarged left atrium, mildly enlarged right atrium, mild mitral valve insufficiency, and RVSP of 45 mmHg. It was felt that his reduced ejection fraction was due to long-term alcohol abuse. He was started on new medications and discharged for outpatient follow- up. Patient presented to the emergency room on 12/24/2024 with complaints of chest pain. His EKG during that time demonstrated atrial flutter with a 2-1 block and heart rate of 123 bpm. His troponin was elevated at 60, and BNP 7117. He was admitted to the hospital for further evaluation. He did undergo a echocardiogram on 12/24/2024 which demonstrated ejection fraction of 5%, mild biatrial dilation, mild to moderate mitral valve insufficiency, mild tricuspid valve insufficiency with a pulmonary artery systolic pressure of 39 mmHg, and mildly dilated aortic root, measuring 4.1 cm. He did undergo a stress test on 12/26/2024 to rule out ischemia, this was negative for ischemia, and demonstrateda fixed apical defect likely secondary to apical thinning. He was started on Eliquis 5 mg twice daily. He was discharged home on Eliquis 5 mg twice daily, aspirin 81 mg daily, atorvastatin 40 mg daily, furosemide 40 mg twice daily, losartan 50 mg daily, with Toprol tartrate 50 mg twice daily, and [id number] mg daily. From a cardiac standpoint, the patient is doing well. He does acknowledge occasional chest pain with exertion. This is located midsternal/epigastric area.This is brief. He denies any palpitations, pressure or heaviness. He states he does have SOB with exertion. He denies Orthopnea, and PND. He does not have bleeding issues; no blood in urine, stool, or nosebleeds. He does acknowledge fatigue. He denies myalgias, or claudication. He does not have edema, or sudden weight gain. He denies lightheadedness, dizziness, syncopal or near syncopal episodes, and headaches. Intake Vital Signs 12/25/24 11:02 01/05/25 07:24 Height 5 ft 10 in 5 ft 10 in Weight: 256 lb BMI 36.7 BP 105/68 Blood Pressure Location Lt brachial Position Sitting Respiration 18 Pulse 98 Pulse Source Monitor Pulse Oximetry (%) 100 Intake Visit Reasons: S/P [facility] 12/28 Bottom Painter Required: No Is patient in pain?: No Allergies No Known Allergies Allergy (Verified 01/05/25 10:24) Medications ?Medication ?Instructions ?Recorded ?Confirmed ?Type apixaban 5 mg tablet (Eliquis) 5 mg PO BID 30 days #60 tabs 12/28/24 01/05/25 Rx aspirin 81 mg chewable tablet 81 mg PO BREAKFAST 30 da ys #30 tabs 12/28/24 01/05/25 Rx atorvastatin 40 mg tablet 40 mg PO QHS 30 days #30 tab s 12/28/24 01/05/25 Rx furosemide 40 mg tablet (Lasix) 40 mg PO BID 30 days # 60 tabs 12/28/24 01/05/25 Rx losartan 50 mg tablet 50 mg PO DAILY 30 days #30 t abs 12/28/24 01/05/25 Rx metoprolol tartrate 50 mg tablet 50 mg PO BID 30 days #60 tabs 12/28/24 01/05/25 Rx spironolactone 25 mg tablet 25 mg PO DAILY 30 days #30 tabs 12/28/24 01/05/25 Rx amiodarone 200 mg tablet See Rx Instructions PO .COMP J LUIS 01/05/25 01/05/25 Rx #70 tabs Ejection fraction %: 50 Have you fallen in the past year?: No [facility] Medical History (Updated 01/05/25 @ 10:53 by Jessika White NP, OPERATIONS RESEARCH MANAGER-C) A-fib NSTEMI (non-ST elevated myocardial infarction) Atrial flutter with rapid ventricular response Essential hypertension History of ETOH abuse Elevated blood pressure reading Family History Other COPD (chronic obstructive pulmonary disease) Heart disease Social History (Reviewed 01/05/25 @ 13:50 by Jessika White OPERATIONS RESEARCH MANAGER, OPERATIONS RESEARCH MANAGER-C) household members: spouse Smoking Status: Former smoker how long ago did patient quit smokin years ago alcohol intake: never substance use type: marijuana caffeine: No (None in the last couple of weeks) ROS Const Const: Positive for fatigue; Negative for weakness, headache(s) or frequent falls Eyes Eyes: Negative for blurry vision ENT ENT: Negative for headache(s), dizziness or Nosebleed/epistaxis Cardio Chest Pain: Yes (occasionally) Frequency: other Onset: exercise Location: epigastric and mid sternal Duration: brief Palpitations: No Edema: None Muscle aches with walking: None Resp Respiratory: Positive for SOB with activity; Negative for SOB at rest or SOB orthopnea\SOB lying down GI GI: Positive for nausea; Negative vomiting, heartburn, bright, red blood in stools or black,tarry stools : Negative for hematuria Neuro Neuro: Negative for dizziness, lightheadedness, near syncope, syncope, frequent falls, headache(s), weakness or blurry vision Endo Endo: Positive for fatigue Cardiology Exam Const Appearance: cooperative, healthy appearing, comfortable and no acute distress Nutritional Appearance: well nourished and obese Orientation: alert, awake and oriented x3 Head Head: normal to inspection Ears: hearing grossly normal bilaterally Nose: external nose normal Face and Sinus: face symmetric Mouth: moist mucous membranes Eyes General: appearance normal, both eyes and all related structures Eyelids: eyelids normal EOM: EOM intact bilaterally Neck Neck: normal visual inspection and no JVD Carotids: normal carotid upstroke Chest Chest inspection: normal inspection of the chest, symmetric chest movement and normal respiratory effort; Negative cough Auscultation: Bilateral: Clear to Auscultation Cardio Rhythm: irregularly irregular Heart sounds: S1 normal and S2 normal; Negative rub, gallop or murmur GI GI: normal to inspection and obese Neuro General: patient alert, patient awake, patient oriented x3 and CN's II-XI intactbilaterally Skin Skin: no rashes or lesions noted Extremities Pulses: Normal: Right Posterior Tibial Pulse, Left Posterior Tibial Pulse, RightRadial Pulse and Left Radial Pulse Lower Extremity Edema: None: Bilateral Psych Psychological: normal affect Supplemental Info Supplemental Information Echocardiogram 12/24/2024: Interpretation Summary Moderately dilated left ventricle. Severe global LV systolic dysfunction. Estimated LVEF 5%. Stage I diastolic dysfunction. Mild global right ventricular systolic dysfunction. There is mild biatrial dilatation. Mild-Moderate (1-2+) mitral valve insufficiency. Mild (1+) tricuspid valve insufficiency. Mildly dilated aortic root. Stress test 12/26/2024: Impression: 1. Pharmacologic (Regadenoson) evaluation 2. Peak pharmacologic ECG nondiagnostic secondary to baseline abnormalities. 3. Occasional PVCs noted. 5. No reversible perfusion defects. Fixed apical defect likely secondary to apical thinning. 6. The gated Cardiolite study reports an LVEF of 20%. Echocardiogram from 10/29/2022: Interpretation Summary Mildly dilated left ventricle. Mild concentric left ventricular hypertrophy. The left ventricular ejection fraction is 50 %. The left atrium is severely enlarged. The right atrium is severely enlarged. Echocardiogram 07/30/2022 Interpretation Summary The estimated ejection fraction is 15-20 %. There is severe global hypokinesis of the left ventricle. The left atrium is mildly enlarged. The right atrium is mildly enlarged. Mild (1+) mitral valve insufficiency.? Labs: LDL Cholesterol, (0-130) 48 mg/dL HDL Cholesterol, (40-) 31 mg/dL L Cholesterol, (<=200) 97 mg/dL Triglycerides, (-199) 68 mg/dL Diagnostics: Electrocardiogram Echocardiogram Stress Test Stress Test Nuclear Medicine Chest X-Ray Past Visits: Cardiology Visit Today Assessment and Plan Assessment and Plan (1) Non-ischemic cardiomyopathy: Status: Acute Plan: Patient has a history of nonischemic cardiomyopathy. His most recent echocardiogram from 12/24/2024 demonstrated an ejection fraction of 5%. His stress test from 12/26/2024 was negative for ischemia. These results were reviewed with patient. He appears stable at this time, denies any recent symptoms or events. He will continue with guideline directed medical therapy: Metoprolol tartrate 50 mg twice daily, losartan 50 mg daily, Lasix 40 mg twice daily, and spironolactone 25 mg daily. Would like to obtain a limited echocardiogram 6 weeks post cardioversion to reassess his left ventricular systolic function. Depending on results, further recommendations will be made. Did briefly discuss an ICD/NEWS REPORTER-D. He will continue to monitor for any concerning symptoms. (2) A-fib: Status: Acute Qualifiers: Atrial fibrillation type: paroxysmal Qualified Code(s): I48.0 - Paroxysmal atrial fibrillation Plan: Patient has new onset atrial fibrillation. His EKG from today demonstrates atrial fibrillation with rapid ventricular response, left bundle branch block, heart rate 109 bpm. His echocardiogram on 12/24/2024 demonstrated ejection fraction of 5%, with mild biatrial enlargement. This was reviewed with patient. Did discuss with Dr. Johnson, he would like to place patient on amiodarone, witha loading dose?400 mg twice daily x 10 days, and then 200 mg daily. Will proceed with cardioversion on 01/31/2025. Cardioversion instructions were reviewed with patient, and he verbalizes understanding. He will continue Eliquis 5 mg twice daily, and metoprolol tartrate 50 mg twice daily. He was instructed to not miss any doses of Eliquis. Will obtain an EKG in 1 week, and again 1 week post cardioversion. He will continue to monitor for any concerningsymptoms of atrial fibrillation. (3) Congestive heart failure (CHF): Status: Acute Qualifiers: Heart failure chronicity: acute Heart failure type: systolic QualifiedCode(s): I50.21 - Acute systolic (congestive) heart failure Plan: Patient has a history of congestive heart failure. His echocardiogram from 12/24/2024 demonstrated ejection fraction of 5%. This had decreased from his echocardiogram in July 2022. He appears stable at this time, denies any recentsymptoms or events. He will continue with his current guideline directed medical therapy: Metoprolol tartrate 50 mg twice daily, losartan 50 mg daily, Lasix 40 mg twice daily, and spironolactone 25 mg daily. He will continue to monitor for any new concerning symptoms. (4) Essential hypertension: Status: Chronic Plan: Patient has a history of hypertension. His blood pressure is well-controlled atthis time?105/68. He will continue with his current medical therapy, along withmonitoring his blood pressures at home. He will notify our office of any persistently elevated or low blood pressure readings. Orders: Orders 12 Lead EKG performed by [facility] Today R00.0 - Tachycardia, unspecified Basic Metabolic Profile (BMP) Today I48.0 - Paroxysmal atrial fibrillation Cardioversion 01/31/25 I48.0 - Paroxysmal atrial fibrillation Echo, Limited Study 3 Months I42.8 - Other cardiomyopathies, I48.0 - Paroxysmalatrial fibrillation Medications: New amiodarone 400mg BID x 10 days, then 200mg daily 70 tabs 11RF Plan Details Additional Comments: Patient will follow-up in 4 months, or sooner if needed. Thank you for allowing me to participate in the care of your patient. Please donot hesitate to call if any issues arise. This note was generated using a voice recognition system and there may be incorrect words, spelling, or punctuation that were not noted when reviewing theoffice note prior to saving. Portions of this documentation were copied and pasted from previous office visitnotes to provide cohesive continuity of the history. The note has been reviewed,edited, and updated, as necessary. Follow Up: 4 Months (OPERATIONS RESEARCH MANAGER/PA) EKG (Next week) EKG (Post cardioversion the week of 02/06/2025) Coding Level of Care Code Off vis,est,level 4 Diagnoses Non-ischemic cardiomyopathy I42.8 Paroxysmal atrial fibrillation I48.0 Atrial fibrillation type: paroxysmal Acute systolic congestive heart failure I50.21 Heart failure chronicity: acute Heart failure type: systolic Essential hypertension I10 Coding Level of Care Code Off vis,est,level 4 Diagnoses Non-ischemic cardiomyopathy I42.8 Paroxysmal atrial fibrillation I48.0 Atrial fibrillation type: paroxysmal Acute systolic congestive heart failure I50.21 Heart failure chronicity: acute Heart failure type: systolic Essential hypertension I10 Clinical Quality Measures Falls Risk Screening/Assistive Devices Have you fallen in the past year?: No Cardiac Ejection fraction %: 50 01/05/25 1358 <Electronically signed by Jessika ALLISON> Date _ Jessika ALLISON Cosigner Signature: Date (if applicable) CC: ~ [facility] Work Phone: Reason for referral (narrative)No reason for referral information availableWWexner [facility] Work Phone: Chief Complaint and Reason for [...] FAILURE ACUTE HEART FAILURE ACUTE HEART FAILURE [facility] S/P CHF CHF, HTN; CAD CHF, HTN; CAD Reason for Visit Congestive heart gifty lure (CHF) Morbid obesity due to excess calories Congestive heart failure (CHF) Essential hypertension Chief Complaint ACUTE HEART FAILURE ACUTE HEART FAILURE ACUTE HEART FAILURE ACUTE HEART FAILURE [facility] S/P CHF CHF, HTN; CAD CHF, HTN; CAD CHF, HTN; CAD CHF, RE-EVAL EF POST GDMT CHANGES Amb Documentation Reason for Visit Congestive heart gifty lure (CHF) Morbid obesity due to excess calories Congestive heart failure (CHF) Essential hypertension Chief Complaint Admit Date NSTEMI WITH CHF December 24, 2024 7:31pm Reason for Visit Admit Date ACS (acute coronary syndrome) December 24, 2024 7:31pm Adult BMI 38.0-38.9 kg/sq m December 242024 7:31pm Sinus tachycardia December 24, 2024 7:31pm Acute exacerbation of CHF (congestive he art failure) December 24, 2024 7:31pm Essential hypertension December 24, 7:31pm Chief Complaint Admit Date NSTEMI WITH CHF December 24, 2024 7:31pm NSTEMI WITH CHF December 25, 2024 7:52am NSTEMI WITH CHF December 25, 2024 11:06am NSTEMI WITH CHF December 26, 2024 9:10am NSTEMI WITH CHF December 26, 2024 12:43pm NSTEMI WITH CHF December 27, 2024 7:45am NSTEMI WITH CHF December 27, 2024 2:22pm NSTEMI WITH CHF December 28, 2024 9:39am Reason for Visit Admit Date A-fib December 24, 2024 7:31pm ACS (acute coronary syndrome) December 24, 2024 7:31pm Adult BMI 38.0-38.9 kg/sq m December 242024 7:31pm Atrial flutter with rapid ventricular re sponse December 24, 2024 7:31pm Congestive heart failure (CHF) December 24, 2024 7:31pm NSTEMI (non-ST elevated myocardial infar ction) December 24, 2024 7:31pm Sinus tachycardia December 24, 2024 7:31pm Acute exacerbation of CHF (congestive he art failure) December 24, 2024 7:31pm Essential hypertension December 24 7:31pm Chief Complaint Admit Date NSTEMI WITH CHF December 24, 2024 7:31pm NSTEMI WITH CHF December 25, 2024 7:52am NSTEMI WITH CHF December 25, 2024 11:06am NSTEMI WITH CHF December 26, 2024 9:10am NSTEMI WITH CHF December 26, 2024 12:43pm NSTEMI WITH CHF December 27, 2024 7:45am NSTEMI WITH CHF December 27, 2024 2:22pm NSTEMI WITH CHF December 28, 2024 9:39am S/P [facility] 12/28January 05, 2025 9:56am E ORDER January 05, 2025 11:03am Reason for Visit Admit Date A-fib December 24, 2024 7:31pm ACS (acute coronary syndrome) December 24, 2024 7:31pm Adult BMI 38.0-38.9 kg/sq m December 242024 7:31pm Congestive heart failure (CHF) December 24, 2024 7:31pm Sinus tachycardia December 24, 2024 7:31pm Acute exacerbation of CHF (congestive he art failure) December 24, 2024 7:31pm Essential hypertension December 24 7:31pm Atrial flutter with rapid ventricular re sponse December 24, 2024 7:31pm NSTEMI (non-ST elevated myocardial infar ction) December 24, 2024 7:31pm A-fib January 05, 2025 9:56am Congestive heart failure (CHF) January 05, 2025 9:56am Non-ischemic cardiomyopathy January 052024 9:56am Essential hypertension January 05 9:56am Family History No Family History Records Found Relationship Condition Age at Onset Recorded Date/T dilia Not Specified Cardiac disease Unknown Chronic obstructive pulmonary disease Unk nown Advance Directives No Advanced Directives Records Found Advance Directive Response Recorded Date/ Time Living Will No July 14, 2022 5:06pm Power of Network Engineer No July 14 5:06pm Advance Directive Response Recorded Date/ Time Living Will No July 14, 2022 9:39pm Power of Network Engineer No July 14 9:39pm Advance Directive Response Recorded Date/ Time Do you have a Healthcare Power of Network Engineer? No December 24, 2024 5:02pm Advance Directive Response Recorded Date/ Time Do you have a Healthcare Power of Network Engineer? No December 24, 2024 8:45pm Summary Purpose Additional Source Comments Care Teams (unrecognized sec tion and content) Team Status: Active Member Role Status Dates No Primary Care Physician Primary Care Provider Active Team Status: Active Member Role Status Dates Dr. Marques Moise DO Emergency Provider Active No Primary Care Physician Primary Care Provider Active Dr. Aren Valderrama MD Admit Provider, Attending Pro vider Active Team Status: Active Member Role Status Dates Dr. Marques Moise DO Emergency Provider Active No Primary Care [...] Member Role Status Dates Dr. Marques Moise DO Emergency Provider Active No Primary Care Physician Primary Care Provider Active Dr. Aren Valderrama MD Admit Provider, Other Provide r Active Dr. Khai Ro MD Other Provider Active Dr. Tim Miller MD Attending Provider, Other Provid er Active Team Status: Active Member Role Status Dates Dr. Marques Moise DO Emergency Provider Active No Primary Care Physician Primary Care Provider Active Dr. Aren Valderrama MD Admit Provider, Other Provide r Active Dr. Khai Ro MD Attending Provider, Other Provid er Active Dr. Tim Miller MD Other Provider Active Team Status: Inactive Member Role Status Dates Dr. Marques Moise DO Emergency Provider Active No Primary Care Physician Primary Care Provider Active Dr. Aren Valderrama MD Admit Provider, Other Provide r Active Dr. Khai Ro MD Attending Provider Active Dr. Tim Miller MD Other Provider Active Team Status: Inactive Member Role Status Dates No Primary Care Physician Primary Care Provider, Refer ring Provider Active Benito Haywood OPERATIONS RESEARCH MANAGER, OPERATIONS RESEARCH MANAGER-C Attending Provider Active Team Status: Active Member Role Status Dates No Primary Care Physician Primary Care Provider Active Benito Haywood OPERATIONS RESEARCH MANAGER, OPERATIONS RESEARCH MANAGER-C Referring Provider, Other Provide r Active Dr. Tim Miller MD Attending Provider Active Team Status: Inactive Member Role Status Dates No Primary Care Physician Primary Care Provider Active Benito Haywood OPERATIONS RESEARCH MANAGER, OPERATIONS RESEARCH MANAGER-C Attending Provider, Referring Pro vider Active Team Status: Active Member Role Status Dates No Primary Care Physician Primary Care Provider Active Dr. Tim Miller MD Attending Provider Active Benito Haywood OPERATIONS RESEARCH MANAGER, OPERATIONS RESEARCH MANAGER-C Referring Provider Active Team Status: Active Member Role Status Dates No Primary Care Physician Primary Care Provider Active Dr. Tim Miller MD Attending Provider Active Team Status: Active Member Role Status Dates No Primary Care Physician Primary Care Provider Active Benito Haywood OPERATIONS RESEARCH MANAGER, OPERATIONS RESEARCH MANAGER-C Attending Provider Active Team Status: Active Member Role/Relationship Status Dates No Primary Care Physician Primary Care Provider Active Team Status: Active Member Role/Relationship Status Dates No Primary Care Physician Primary Care Provider Active Start: December 24, 2024 Dr. Yuniel Hoffman MD Emergency Provider Active Sta rt: December 24, 2024 Dr. Abhi Chong DO Admit Provider Active Start: December 24, 2024 Dr. Abhi Chong DO Attending Provider Active Start: December 24, 2024 Team Status: Active Member Role/Relationship Status Dates No Primary Care Physician Primary care physician Activ e Team Status: Inactive Member Role/Relationship Status Dates No Primary Care Physician Primary care physician Activ e Start: December 24, 2024 End: December 28, 2024 Dr. Yuniel Hoffman MD Emergency Department Physician Active Start: December 24, 2024 End: December 28, 2024 Dr. Abhi Chong DO Admitting physician Active Start: December End: December 28, 2024 Dr. Abhi Chogn DO Nurse Practitioner Active Start: December End: December 28, 2024 Dr. Baudilio Castellanos MD Attending physician Active Start: December 24, 2024 End: December 28, 2024 Team Status: Active Member Role/Relationship Status Dates No Primary Care Physician Primary care physician Activ e Start: December 25, 2024 Dr. Yuniel Hoffman MD Emergency Department Physician Active Start: December 25, 2024 Dr. Abhi Chong DO Admitting physician Active Start: December Dr. Abhi Chong DO Nurse Practitioner Active Start: December Dr. Baudilio Castellanos MD Attending physician Active Start: December 25, 2024 Dr. Baudilio Castellanos MD Nurse Practitioner Active Start: December 25, 2024 Dr. Patric Colmenares MD Nurse Practitioner Active S tart: December 25, 2024 Team Status: Active Member Role/Relationship Status Dates No Primary Care Physician Primary care physician Activ e Start: December 25, 2024 Dr. Yuniel Hoffman MD Emergency Department Physician Active Start: December 25, 2024 Dr. Abhi Chong DO Admitting physician Active Start: December Dr. Abhi Chong DO Nurse Practitioner Active Start: December Dr. Baudilio Castellanos MD Nurse Practitioner Active Start: December 25, 2024 Dr. Patirc Colmenares MD Attending physician Active Start: December 25, 2024 Dr. Patric Colmenares MD Nurse Practitioner Active S tart: December 25, 2024 Team Status: Active Member Role/Relationship Status Dates No Primary Care Physician Primary care physician Activ e Start: December 26, 2024 Dr. Tim Miller MD Attending physician Active Start: December 26, 2024 Team Status: Active Member Role/Relationship Status Dates No Primary Care Physician Primary care physician Activ e Start: December 26, 2024 Dr. Yuniel Hoffman MD Emergency Department Physician Active Start: December 26, 2024 Dr. Abhi Chong DO Admitting physician Active Start: December Dr. Abhi Chong DO Nurse Practitioner Active Start: December Dr. Baudilio Castellanos MD Nurse Practitioner Active Start: December 26, 2024 Dr. Patric Colmenares MD Nurse Practitioner Active S tart: December 26, 2024 Dr. Joseph Johnson MD Attending physician Active Start: December 26, 2024 Team Status: Active Member Role/Relationship Status Dates No Primary Care Physician Primary care physician Activ e Start: December 26, 2024 Dr. Yuniel Hoffman MD Emergency Department Physician Active Start: December 26, 2024 Dr. Abhi Chong DO Admitting physician Active Start: December Dr. Abhi Chong DO Nurse Practitioner Active Start: December Dr. Baudilio Castellanos MD Attending physician Active Start: December 26, 2024 Dr. Baudilio Castellanos MD Nurse Practitioner Active Start: December 26, 2024 Dr. Patric Colmenares MD Nurse Practitioner Active S tart: December 26, 2024 Team Status: Active Member Role/Relationship Status Dates No Primary Care Physician Primary care physician Activ e Start: December 27, 2024 Dr. Yuniel Hoffman MD Emergency Department Physician Active Start: December 27, 2024 Dr. Abhi Chong DO Admitting physician Active Start: December Dr. Abhi Chong DO Nurse Practitioner Active Start: December Dr. Baudilio Castellanos MD Nurse Practitioner Active Start: December 27, 2024 Dr. Patric Colmenares MD Nurse Practitioner Active S tart: December 27, 2024 Dr. Joseph Johnson MD Attending physician Active Start: December 27, 2024 Team Status: Active Member Role/Relationship Status Dates No Primary Care Physician Primary care physician Activ e Start: December 27, 2024 Dr. Yuniel Hoffman MD Emergency Department Physician Active Start: December 27, 2024 Dr. Abhi Chong DO Admitting physician Active Start: December Dr. Abhi Chong DO Nurse Practitioner Active Start: December Dr. Baudilio Castellanos MD Attending physician Active Start: December 27, 2024 Dr. Baudilio Castellanos MD Nurse Practitioner Active Start: December 27, 2024 Dr. Patric Colmenares MD Nurse Practitioner Active S tart: December 27, 2024 Team Status: Active Member Role/Relationship Status Dates No Primary Care Physician Primary care physician Activ e Start: December 28, 2024 Dr. Yuniel Hoffman MD Emergency Department Physician Active Start: December 28, 2024 Dr. Abhi Chong DO Admitting physician Active Start: December Dr. Abhi Chong DO Nurse Practitioner Active Start: December Dr. Baudilio Castellanos MD Attending physician Active Start: December 28, 2024 Dr. Baudilio Castellanos MD Nurse Practitioner Active Start: December 28, 2024 Team Status: Inactive Member Role/Relationship Status Dates No Primary Care Physician Primary care physician Activ e Start: January 05, 2025 End: January 05, 2025 No Primary Care Physician Referring Provider Active Start: January 05, 2025 End: January 05, 2025 ESTEFANY Joshi NP Attending physician Active Start: January 05, 2025 End: January 05, 2025 Team Status: Active Member Role/Relationship Status Dates No Primary Care Physician Primary care physician Activ e Start: January 05, 2025 Jessika White NP OPERATIONS RESEARCH MANAGER-David Attending physician Active Start: January 05, 2025 ESTEFANY Joshi NP Referring Provider Active Start: January 05, 2025 Goals (unrecognized section and content) Goals may be documented in a n alternate sectionGoals may be documented in an alternate section Source Comments (unrecognize d section and content) In the event this informatio n is protected by the Federal Confidentiality of Alcohol and Drug Abuse Patient Records regulations: The Federal rules restrict any use of the information to criminally investigate or prosecute any alcohol or drug abuse patient.[facility] Reason for Visit (unrecogniz ed section and content) Reason Comments Shortness of Breath With swollen legs an d feet x 2 weeks (unrecognized sect ion and content) No Status Records FoundNo Status Records Found INFORMATION SOURCE (unrecogn ized section and content) DATE CREATED AUTHOR 07/17/2022 [facility] DATE CREATED AUTHOR AUTHOR'S PAULINE RIGGS 01/20/2025 [facility] FOR RECORDS PERTAINING TO PATIENTS WHO [...] BE BASED ON THE PRIMARY CLINICAL RECORDS. [facility]. provides no warranty or guarantee of the accuracy or completeness of information in this document.
[2025-01-29 06:18] LABS: Hematocrit 48.1 % (40-54); Hemoglobin 15.3 g/dL (13.0-16.5); Immature Granulocytes Count 0.030 X10^3/uL (0.0-0.0); Mean Corp Hgb Conc 31.8 g/dL (32-36); Mean Corpuscular Volume 95.8 fL (80-94); Mean Platelet Vol. 11.2 fl (6.2-12.0); NRBC Flagged by Analyzer 0 % (0-5); POSITIVE DIFFERENTIAL YES; Platelet Count 182 K/mm3 (150-450); RBC Distribution Width CV 14.6 % (11.6-14.6); RBC Distribution Width SD 50.9 fl (35.1-43.9); Red Blood Count 5.02 M/mm3 (4.6-6.2); White Blood Count 9.2 K/mm3 (4.4-11.0)
[2025-01-29 06:22] LABS: Prothrombin Time (Protime)PT. 16.9 SECONDS (11.7-14.9)
[2025-01-29 06:23] LABS: Partial Thromboplast Time 35.5 Seconds (24.1-36.2)
--- NOTE | 2025-01-29 06:24 | EX.ED.DYSGE1 ---
HPI History of Present Illness Chief Complaint: Chest Pain Informant: patient and spouse/S.O. Narrative Narrative: Patient is a 65-year-old male with past medical history of atrial fibrillation hypertension and congestive heart failure. He was admitted to the hospital at the end of December secondary to CHF exacerbation and type II [place] with A-fib with RVR at that time. He was placed on Eliquis as well as metoprolol and then amiodarone was added. He states that he was to see cardiology for potential cardioversion coming up in the next week or so. However on Thursday he developed a right sided nosebleed and had to have nasal packing placed and was advised to stop his Eliquis. He also reports that his mouth was getting so dry that he reduced his Lasix from 2 pills a day to 1. He states overall he went to bed feeling normal and then awoke with sensation of shortness of breath and chest discomfort. He states this feels similar nature to the time he needed admitted at the end of December and with this presents for evaluation [facility] Medical History A-fib NSTEMI (non-ST elevated myocardial infarction) Atrial flutter with rapid ventricular response Essential hypertension History of ETOH abuse Elevated blood pressure reading Home Medications ?Medication ?Instructions ?Recorded ?Last Taken ?Type aspirin 81 mg chewable tablet 81 mg PO BREAKFAST 30 days #30 tabs 12/28/24 Unknown Rx atorvastatin 40 mg tablet 40 mg PO QHS 30 days #30 tabs 12/28/24 Unknown Rx losartan 50 mg tablet 50 mg PO DAILY 30 days #30 tabs 12/28/24 Unknown Rx metoprolol tartrate 50 mg tablet 50 mg PO BID 30 days #60 tabs 12/28/24 Unknown Rx spironolactone 25 mg tablet 25 mg PO DAILY 30 days #30 tabs 12/28/24 Unknown Rx amiodarone 200 mg tablet See Rx Instructions PO .COMPLEX 01/05/25 Unknown Rx #70 tabs apixaban 5 mg tablet (Eliquis) 5 mg PO BID #180 tabs 01/09/25 Unknown Rx Held on 01/27/25. Instructions: NOSEBLEED furosemide 40 mg tablet (Lasix) 40 mg PO QDAY 30 days #30 tabs 01/17/25 Unknown Rx cephalexin 500 mg capsule 500 mg PO Q12 #14 CAPSULES 10/17/25 Unknown Rx hydrocodone-acetaminophen 5-325mg 1 tab PO Q4H PRN PRN Pain 2 days 01/27/25 Unknown Rx 5mg-325mg #8 TABLETS furosemide 40 mg tablet (Lasix) 40 mg PO BID 30 days #60 tabs 01/29/25 Unknown Rx spironolactone 25 mg tablet 25 mg PO DAILY 30 days #30 tabs 01/29/25 Unknown Rx Allergy/AdvReac Type Severity Reaction Status Date / Time No Known Allergies Allergy Verified 01/27/25 12:04 Family History Other COPD (chronic obstructive pulmonary disease) Heart disease Social History household members: spouse Smoking Status: Former smoker how long ago did patient quit smokin years ago alcohol intake: never substance use type: marijuana caffeine: No (None in the last couple of weeks) ROS ROS ED Constitutional Constitutional ED: Denies chills or fever(s) ENT ENT ED: Reports rhinorrhea Cardiovascular Cardiovascular: Reports chest pain, orthopnea, palpitations and racing heartbeat Respiratory/Chest Respiratory/Chest: Reports cough, dyspnea, dyspnea on exertion and orthopnea Gastrointestinal Gastrointestinal: Denies abdominal pain, diarrhea, nausea or vomiting Musculoskeletal Musculoskeletal: Denies back pain Integumentary Denies rash Neurologic Neurologic: Denies headache(s) Hematologic/Lymphatic Hematologic/Lymphatic: Reports easy bleeding and easy bruising EXAM Physical Exam Const Vital Signs: 01/29/25 05:39 01/29/25 05:46 01/29/25 05:46 Temperature 98.0 F Temperature Source Oral Pulse Rate 143 H Respiratory Rate 34 H Respiratory Effort Short of Breath Short of Breath Respiratory Depth Shallow Respiratory Pattern Tachypnea Blood Pressure 129/104 H Blood Pressure Mean 112 Pulse Ox 93 Oxygen Delivery Method Room Air Room Air 01/29/25 06:00 01/29/25 07:00 Temperature Temperature Source Pulse Rate 129 H 106 H Respiratory Rate 28 H 25 H Respiratory Effort Respiratory Depth Respiratory Pattern Blood Pressure 113/98 H 125/107 H Blood Pressure Mean 103 113 Pulse Ox 98 98 Oxygen Delivery Method Room Air Room Air Positive well nourished, well developed and obese General Appearance ED: well developed; Negative for pallor Nutritional Appearance: obese HEENT HEENT Narrative: Normocephalic atraumatic Nasal packing is noted in the right nostril consistent with history of recent right sided nosebleed No tongue or lip swelling no oral lesions no airway edema or compromise Cobblestoning is noted in the posterior pharynx consistent with sinus drainage; no active bleeding present Eyes PERRL and EOMs intact bilaterally General Eye ED: Negative for scleral icterus Neck supple Neck Narrative: Right-sided JVD noted Chest Wall palpation of chest normal Resp Resp Narrative: Patient is in mild respiratory distress with tachypnea Breath sounds are diminished mainly in the bilateral lower lobes and there is crackles in the sections as well concerning/consistent with CHF. Cardio Rate: tachycardic and other Other Details: Irregularly irregular rhythm with tachycardic rate consistent with atrial fibrillation GI normal to inspection, nondistended, normoactive bowel sounds, non-tender, non-distended and no masses GI Narrative: No voluntary guarding or rigidity or pulsatile mass No fluid wave noted Auscultation: normoactive bowel sounds Palpation: soft Extremity Extremity Narrative: +2-3 pitting edema to the bilateral lower extremities that is equal and symmetric Negative Homans' sign bilaterally Neuro oriented x3, CN's II-XII intact bilaterally and no sensory deficits noted Sensorium / Orientation: alert Motor Exam: strength 5/5 throughout Psych mental status grossly normal Skin no rashes or lesions noted General Skin Exam: Negative for jaundice or pallor MDM MDM MDM Narrative Medical decision making narrative: Patient presented in atrial fibrillation with rapid ventricular response at approximate 120 bpm. Chart review revealed that A-fib with left bundle is patient's baseline heart rhythm. As he reports that he has shortness of breath that occurred while sleeping coupled with the fact that he has reduced his diuretic use symptoms and exam would point towards congestive heart failure as the cause of his shortness of breath and chest discomfort. In order to assess for pneumonia versus pneumothorax versus volume overload a chest x-ray was obtained. In order to assess for acute on chronic kidney injury versus acute blood loss anemia or clinically significant electrolyte changes basic blood work was ordered. The patient's x-ray showed cardiomegaly with pulmonary vascular congestion however this was stable compared to his previous x-ray and is correlates with the fact his pulse ox is 98% on room air. Creatinine is 1.6 and this is also near baseline after reviewing prior records. White count is normal he does not have left shift he is not febrile and therefore I have low concern for pneumonia. Moreover his viral swab is negative for COVID and influenza. The patient's troponin is bumped at 41 but chart review reveals that his value last time was higher at a value of 60 and this would go against acute coronary syndrome or blockage as a cause of his symptoms and is due to the tachycardia and congestive heart failure. The patient's proBNP is elevated 8000 and chart review reveals that when he was admitted at the previous hospital visit it was roughly 7000 and then trended down to 4000 prior to discharge. The fact that it is elevated once again we will correlate with his symptoms and also the fact that he has reduced his diuretic use. The patient was given IV Lasix in the ER as well as IV Cardizem and this helped reduce his rate and shortness of breath sensation. He was then given his morning dose of metoprolol in order to keep the heart rate under control. The case was discussed with cardiology on-call Dr. Stewart. He feels that as his chest x-ray is similar to 1 month ago and he is not hypoxic at rest and he has reduced his diuretic use that we can discharge the patient and have him increase his Lasix once again and this should help provide enough diuresis that his shortness of breath improved. I did ambulate the patient to ensure that his shortness of breath will not cause hypoxia with activity and his pulse ox went from 98 to 96% going against any hypoxia with activity. Therefore as patient is not need of supplemental oxygen his heart rate is controlled and A-fib has been present for 4 to 6 weeks and cardiology recommends outpatient diuresis not inpatient then I will discharge the patient home. The patient and are comfortable with the plan of care but understand that if he is still having persistent symptoms despite the adequate medication use that he may need to return to the ER for potential admission and IV diuresis. History & Record Review Discussion w/independent historian: Patient and Significant other Additional record(s) reviewed:: Prior inpatient record, Prior ED visit and Prior labs Lab Data Attestation: I reviewed the patient's lab results. Labs: Laboratory Results - last 24 hr 01/29/25 05:47 WBC 9.2 RBC 5.02 Hgb 15.3 Hct 48.1 MCV 95.8 H MCH 30.5 MCHC 31.8 L RDW Std Deviation 50.9 H RDW Coeff of Paz 14.6 Plt Count 182 MPV 11.2 Immature Gran % (Auto) 0.300 Neut % (Auto) 68.3 Lymph % (Auto) 14.3 L Wake % (Auto) 16.6 H Eos % (Auto) 0.1 Baso % (Auto) 0.4 Absolute Neuts (auto) 6.3 Absolute Lymphs (auto) 1.32 Nucleated RBC % 0 Differential Comment SCANNED PT 16.9 H INR 1.4 APTT 35.5 Sodium 137 Potassium 4.2 Chloride 100 Carbon Dioxide 23.2 Anion Gap 14 BUN 28 H Creatinine 1.61 H Estim Creat Clear Calc 59.53 Est GFR (MDRD) Non-Af 47 L BUN/Creatinine Ratio 17.5 Glucose 121 H Calcium 9.3 Magnesium 2.0 Troponin T High Sens 41 H D NT pro BNP II 8230 H TSH 3.160 Radiography Diagnostic Testing: Clinical Impression(s) from Imaging Studies Chest X-Ray 01/29/25 06:10 IMPRESSION: Stable mild cardiomegaly and mild pulmonary vascular congestion. 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 Discharge Plan Triage Chief Complaint: Chest Pain Other Complaint: Shortness of Breath ED Provider: Victorino Loco Dx/Rx/DC Orders Clinical Impression: Congestive heart failure (CHF), Atrial fibrillation, Essential hypertension, Non-ischemic cardiomyopathy Instructions: AFib Dc, ED Heart Failure, Congestive (CHF) Prescriptions: New furosemide [Lasix] 40 mg tablet 40 mg PO BID 30 Days Qty: 60 0RF spironolactone 25 mg tablet 25 mg PO DAILY 30 Days Qty: 30 0RF No Action amiodarone 200 mg tablet See Rx Instructions PO .COMPLEX Qty: 70 11RF Rx Instructions: 400mg BID x 10 days, then 200mg daily losartan 50 mg Tablet 50 mg PO DAILY 30 Days Qty: 30 2RF atorvastatin 40 mg Tablet 40 mg PO QHS 30 Days Qty: 30 2RF spironolactone 25 mg Tablet 25 mg PO DAILY 30 Days Qty: 30 2RF Rx Instructions: Hold for serum potassium more than 5.0 metoprolol tartrate 50 mg Tablet 50 mg PO BID 30 Days Qty: 60 2RF aspirin 81 mg Tablet,Chewable 81 mg PO BREAKFAST 30 Days Qty: 30 2RF hydrocodone-acetaminophen 5-325 mg tablet 1 tab PO Q4H PRN PRN (Reason: Pain) 2 Days Qty: 8 0RF cephalexin 500 mg capsule 500 mg PO Q12 Qty: 14 0RF Eliquis 5 mg tablet 5 mg PO BID Qty: 180 3RF Rx Instructions: Fax to [facility] furosemide [Lasix] 40 mg tablet 40 mg PO QDAY 30 Days Qty: 30 3RF Primary Care Provider: Care Physician,No Primary Referrals: Sebastian Stewart MD [Med Staff - Active Staff, Cardiology] Care Physician,No Primary [Primary Care Provider, Medical] Activity Restrictions/Additional Instructions: Even though you feel dry your exam and workup indicates you have congestive heart failure/fluid on the lungs. In order to help you breathe better you need to take your Lasix twice a day as directed and also your spironolactone once a day and this will help pull fluid out of your system and help with breathing. It will typically take 2 to 3 days before you notice symptom improvement. Also controlling your heart rate will help prevent worsening CHF and shortness of breath. Therefore continue your metoprolol twice a day and your amiodarone once a day. You were given your morning dose of Lasix and metoprolol in the ER and therefore you do not need them until this evening. Please follow-up with your executive chef assistant to discuss potential cardioversion regarding your A-fib and start your Eliquis tomorrow after you are evaluated by ENT for your nosebleed. If you feel like symptoms are worsening despite adding the increased diuresis or you have any further concerns return to the ER for repeat evaluation Print Language: Tajik Disposition Disposition: Home, Self Care
[2025-01-29 06:25] LABS: Differential Indicated SCAN CRITERIA MET
[2025-01-29 06:31] LABS: Anion Gap 14 (5-15); BUN 28 mg/dL (4-19); BUN/Creat Ratio 17.5 RATIO (10-20); Calcium,Total 9.3 mg/dL (7.6-11.0); Carbon Dioxide 23.2 mmol/L (21.0-32.0); Chloride 100 mmol/L (98-108); Estimated Creatinine Clearance 59.53 ml/min (50-250); Glucose 121 mg/dL (70-99); Magnesium 2.0 mg/dL (1.5-2.2); Potassium 4.2 mmol/L (3.3-5.1); Pro- Brain NATRIURETIC PEPTIDE 8230 pg/mL (<=900); Troponin T High Sensitivity 41 ng/L (<=22)
[2025-01-29 06:43] LABS: Differential Comment SCANNED
[2025-01-29 07:00] VITALS: BP 125/107; PULSE 106; RESP 25; O2SAT 98
[2025-01-29 07:41] VITALS: O2SAT 98
[2025-01-29 08:33] VITALS: BP 105/83; PULSE 90; RESP 24; TEMP 36.4; O2SAT 100
== END 2025-01-29 08:43 | disposition home or self-care (01) ==
PROVIDERS: Emergency Provider Emergency Medicine; Visit Provider Emergency Medicine
DX: I11.0 Hypertensive heart disease with heart failure (principal); I50.9 Heart failure, unspecified; I48.91 Unspecified atrial fibrillation; I42.8 Other cardiomyopathies; I25.2 Old myocardial infarction; R06.00 Dyspnea, unspecified; Z87.891 Personal history of nicotine dependence; Z79.899 Other long term (current) drug therapy; Z79.01 Long term (current) use of anticoagulants; Z79.82 Long term (current) use of aspirin
CPT/HCPCS: 71046; 80048; 83735; 83880; 84443; 84484; 85025; 85610; 85730; 87631; 93005; 96374; 96375; 96376; 99283; A4216; J1938

== ENCOUNTER → 2025-01-31 | Outpatient (CLI) | payer SELFPAY ==
--- OUTSIDE RECORDS SUMMARY | 2025-01-31 16:47 | XMS RPT_ITS | CCD ---
Author Organization [facility] Care Team Providers Care Associate Professor Of History Name Role Phone Unavailable Primary Care Provider [...] No Primary Referring Provider Un available Roof CHIEF COMPLIANCE OFFICER, CHIEF COMPLIANCE OFFICER-C Benito H Attending Provider Roof CHIEF COMPLIANCE OFFICER, CHIEF COMPLIANCE OFFICER-C Benito H Referring Provider Roof CHIEF COMPLIANCE OFFICER, CHIEF COMPLIANCE OFFICER-C Benito H Other Provider Roof CHIEF COMPLIANCE OFFICER, CHIEF COMPLIANCE OFFICER-C Benito H Referring Provider Care Physician, No Primary Primary Care Provider Unavailable Dr. Yuniel Hoffman MD Emergency Provider Dr. Abhi Chong DO Admit Provider [phone] Dr. Abhi Chong DO Attending Provider Care Physician, No Primary Primary Care Physicia n Unavailable Dr. Yuniel Hoffman MD Emergency Department Physician Dr. Abhi Chong DO Admitting Physician Dr. Abhi Chong DO Nurse Practitioner Emanuel HUBBARD, Dr. Astudillo Attending Physician Emanuel HUBBARD, Dr. Astudillo Nurse Practitioner Dedra HUBBARD, Dr. Spivey Nurse Practitioner Unavailab maria del carmen Colmenares MD, Dr. Spivey Attending Physician Unavaila greg Miller MD, Dr. Dumont Attending Physician [phone] Alex HUBBARD, Dr. Ruiz Attending Physician Care Physician, No Primary Referring Provider Un available Christopher CHIEF COMPLIANCE OFFICER-C, Jessika Attending Physician [phone] Christopher CHIEF COMPLIANCE OFFICER-C, Jessika Referring Provider Care Physician, No Primary Primary Care Unava ilable Victorino Loco Attending Unavailable John Valdez Attending Unavailable Care Physician, No Primary Primary Care Unava ilable Care Physician, No Primary Primary Care Unava ilable Abhi Chong Admitting Unavailable Joseph Johnson Attending Unavailable Abhi Chong Consulting Unavailable Patric Colmenares Consulting Unavailable Baudilio Castellanos Consulting Unavailable Baudilio Castellanos Attending Unavailable Care Physician, No Primary Primary Care Unava ilable Tim Miller Attending Unavailable Abhi Chong Admitting Unavailable Abhi Chong Consulting Unavailable Baudilio Castellanos Attending Unavailable Care Physician, No Primary Primary Care Unava ilable Care Physician, No Primary Primary Care Unava ilable Care Physician, No Primary Referring Unava ilable Jessika White Attending Unavailable Abhi Chong Attending Unavailable Patric Colmenares Attending Unavailable Joseph Johnson Attending Unavailable Care Physician, No Primary Primary Care Unava ilable Care Physician, No Primary Primary Care Unava ilable Jessika White Referring Unavailable Jessika White Attending Unavailable Medications Current Medications Medication Drug [...] tablet,ER particles/crystals Discontinued 0 .ROUTE .COMPLEX 90 May 11, 2023 11:45am December 28, 2024 [...] mass index (BMI) 38.0-38.9, adult] 12-24-2024 Chronic Other upper respiratory disease (1 source) Epistaxis; Translations: [Epistaxis] Onset: 01-27-2025 Episodic Fay-; endo-; and myocarditis; cardiomyopathy (except that caused by tuberculosis or sexually transmitted disease) (3 sources) Cardiomyopathy; Translations: [Other cardiomyopathies] Onset: 01-05-2025 01-05-2025 Chronic Residual codes; unclassified (1 source) Peripheral edema; Translations: [Edema, unspecified] Episodic Unclassified (2 sources) Follow-up in 1 to 2 weeks Results Test Name Value Interpretation Reference Range Facility 12 Lead EKGon [address] [facility] [address] [place] [address] 12 Lead EKG 01/29/25 0540 MR#: [id number] Acct: [id number] Name: SCARLETT LANDRY Rep #: [id number] : 1960 65 From: Sebastian Stewart MD Attending Dr: Status: DEP ER Ordering Dr: Victorino Loco DO Date: 01/29/25 Location: ED Sex: M C Admitted: Test Reason : CP/SOB Blood Pressure : */* mmHG Vent. Rate : 119 BPM Atrial Rate : * BPM P-R Int : * ms QRS Dur : 156 ms QT Int : 310 ms P-R-T Axes : * 67 237 degrees QTcB Int : 436 ms Atrial fibrillation with rapid ventricular response Left bundle branch block Abnormal ECG Confirmed by SEBASTIAN STEWART MD ([id number]), brands editor JUAN TOSCANO ([id number]) on 01/30/2025 10:37:35 AM Referred By: CARTER Confirmed By: SEBASTIAN STEWART MD 01/30/25 1037 Date Sebastian Stewart MD CC: Victorino Loco DO; No Primary Care Physician Signed [facility] Basic Metabolic Profile (BMP )on 2025 BUN/CRE 17.5 RATIO Normal 01-30 [facility] Comment on above: Performed By: #### L 300.3900, L100.0100 #### [facility] [address] [place], [address] Calcium [Mass/Vol] 9.3 mg/dL Normal 7.6-11.0 [facility] Comment on above: Performed By: #### L 300.3900, L100.0100 #### [facility] [address] [place], [address] Chloride [Moles/Vol] 100 mmol/L Normal 98-108 [facility] Comment on above: Performed By: #### L 300.3900, L100.0100 #### [facility] [address] [place], [address] CO2 [Moles/Vol] 23.2 mmol/L Normal 21.0-32.0 [facility] Comment on above: Performed By: #### L 300.3900, L100.0100 #### [facility] [address] [place], [address] Creatinine [Mass/Vol] 1.61 mg/dL High 0.70-1.20 [facility] Comment on above: Performed By: #### L 300.3900, L100.0100 #### [facility] [address] [place], [address] ECRCL 59.53 ml/min Normal 50-250 [facility] Comment on above: Performed By: #### L 300.3900, L100.0100 #### [facility] [address] [place], [address] GAP 14 Normal 5-15 [facility] Comment on above: Performed By: #### L 300.3900, L100.0100 #### [facility] [address] [place], [address] GFR/1.73 sq M.predicted among non-blacks MDRD (S/P/Bld) [Vol rate/Area] 47 mL/min/{1.73_m2} Low >60 [facility] Comment on above: Result Comment: mL/m in/1.73m2 CKD-EPI Creatinine Equation (2020) Performed By: #### L 300.3900, L100.0100 #### [facility] [address] [place], [address] Glucose [Mass/Vol] 121 mg/dL High 70-99 [facility] Comment on above: Performed By: #### L 300.3900, L100.0100 #### [facility] [address] [place], [address] Potassium [Moles/Vol] 4.2 mmol/L Normal 3.3-5.1 [facility] Comment on above: Performed By: #### L 300.3900, L100.0100 #### [facility] [address] [place], [address] Sodium [Moles/Vol] 137 mmol/L Normal 133-145 [facility] Comment on above: Performed By: #### L 300.3900, L100.0100 #### [facility] [address] [place], [address] Urea nitrogen [Mass/Vol] 28 mg/dL High 07-30 [facility] Comment on above: Performed By: #### L 300.3900, L100.0100 #### [facility] [address] [place], [address] CBC W/Diff, Automatedon - SMEAR COMMENT SCANNED Normal [facility] Comment on above: Performed By: #### L 300.3900, L100.0100 #### [facility] [address] [place], [address] Chest PA and Lateralon 01-[address] [facility] Imaging Services [address] [place] [address] Chest PA and Lateral MR#: [id number] Acct: [id number] Name: SCARLETT LANDRY Rep #: [id number] : 1960 M 65 From: Dylon Trent MD PCP: Care Physician,No Primary Status: REG ER Study: Chest PA and Lateral Date of Exam: 01/29/25 Exam# [id number] Ordering Dr: Victorino Loco DO PROCEDURE: CHEST PA AND LATERAL 2025 REASON FOR EXAM: DYSPNEA TECHNIQUE: Procedure Code: RADCXR Modality: DX Procedure: CHEST PA AND LATERAL COMPARISON: 12/24/2024 FINDINGS: Hardware: None. Heart: Heart size is mildly enlarged but stable. Mediastinum: The mediastinal contour is unremarkable. Lungs: Mild pulmonary vascular congestion unchanged. No definite pneumothorax or sizable pleural effusion. Bones: The bones are unremarkable. RAD/Chest PA and Lateral IMPRESSION: Stable mild cardiomegaly and mild pulmonary vascular congestion. Reading [facility] CC: Victorino Loco DO; No Primary Care Physician Braid Cutter: Signed Normal [facility] Emergency Department Summary on 2025 Emergency Department Summary [facility] Medical Records Department [address] [place] [address] Emergency Department Summary 01/29/25 MR#: [id number] Acct: [id number] Name: SCARLETT LANDRY Rep #: [id number] : 1960 65 From: Victorino Loco DO PCP: Care Physician,No Primary Status:REG ER Location: ED HPI History of Present Illness Chief Complaint: Chest Pain Informant: patient and spouse/S.O. Narrative Narrative: Patient is a 65-year-old male with past medical history of atrial fibrillation hypertension and congestive heart failure. He was admitted to the hospital at the end of December secondary to CHF exacerbation and type II MO with A-fib with RVR at that time. He was placed on Eliquis as well as metoprolol and then amiodarone was added. He states that he was to see cardiology for potential cardioversion coming up in the next week or so. However on Thursday he developed a right sided nosebleed and had to have nasal packing placed and was advised to stop his Eliquis. He also reports that his mouth was getting "so dry" that he reduced his Lasix from 2 pills a day to 1. He states overall he went to bed feeling normal and then awoke with sensation of shortness of breath and chest discomfort. He states this feels similar nature to the time he needed admitted at the end of December and with this presents for evaluation [facility] Medical History A-fib NSTEMI (non-ST elevated myocardial infarction) Atrial flutter with rapid ventricular response Essential hypertension History of ETOH abuse Elevated blood pressure reading Home Medications ???Medication ???Instructions ???Recorded ???Last Taken ???Type aspirin 81 mg chewable tablet 81 mg PO BREAKFAST 30 days #30 tab s 12/28/24 Unknown Rx atorvastatin 40 mg tablet 40 mg PO QHS 30 days #30 tabs 12/12 11/04 Unknown Rx losartan 50 mg tablet 50 mg PO DAILY 30 days #30 tabs Unknown Rx metoprolol tartrate 50 mg tablet 50 mg PO BID 30 days #60 tabs 12/12 11/04 Unknown Rx spironolactone 25 mg tablet 25 mg PO DAILY 30 days #30 tabs Unknown Rx amiodarone 200 mg tablet See Rx Instructions PO .COMPLEX Unknown Rx #70 tabs apixaban 5 mg tablet (Eliquis) 5 mg PO BID #180 tabs 01/09/25 Unk nown Rx Held on 01/27/25. Instructions: NOSEBLEED furosemide 40 mg tablet (Lasix) 40 mg PO QDAY 30 days #30 tabs 11/04 Unknown Rx cephalexin 500 mg capsule 500 mg PO Q12 #14 CAPSULES 5 Unknown Rx hydrocodone-acetaminoph en 5-325mg 1 tab PO Q4H PRN PRN Pain 2 days 01/27/25 Unknown Rx 5mg-325mg #8 TABLETS furosemide 40 mg tablet (Lasix) 40 mg PO BID 30 days #60 tabs 01/11 01/05 Unknown Rx spironolactone 25 mg tablet 25 mg PO DAILY 30 days #30 tabs Unknown Rx Allergy/AdvReac Type Severity Reaction Status Date / Time No Known Allergies Allergy Verified 01/27/25 12:04 Family History Other COPD (chronic obstructive pulmonary disease) Heart disease Social History household members: spouse Smoking Status: Former smoker how long ago did patient quit smokin years ago alcohol intake: never substance use type: marijuana caffeine: No (None in the last couple of weeks) ROS ROS ED Constitutional Constitutional ED: Denies chills or fever(s) ENT ENT ED: Reports rhinorrhea Cardiovascular Cardiovascular: Reports chest pain, orthopnea, palpitations and racing heartbeat Respiratory/Chest Respiratory/Chest: Reports cough, dyspnea, dyspnea on exertion and orthopnea Gastrointestinal Gastrointestinal: Denies abdominal pain, diarrhea, nausea or vomiting Musculoskeletal Musculoskeletal: Denies back pain Integumentary Denies rash Neurologic Neurologic: Denies headache(s) Hematologic/Lymphatic Hematologic/Lymphatic: Reports easy bleeding and easy bruising EXAM Physical Exam Const Vital Signs: 01/29/25 05:39 01/29/25 05:46 01/29/25 05:46 Temperature 98.0 F Temperature Source Oral Pulse Rate 143 H Respiratory Rate 34 H Respiratory Effort Short of Breath Short of Breath Respiratory Depth Shallow Respiratory Pattern Tachypnea Blood Pressure 129/104 H Blood Pressure Mean 112 Pulse Ox 93 Oxygen Delivery Method Room Air Room Air 01/29/25 06:00 01/29/25 07:00 Temperature Temperature Source Pulse Rate 129 H 106 H Respiratory Rate 28 H 25 H Respiratory Effort Respiratory Depth Respiratory Pattern Blood Pressure 113/98 H 125/107 H Blood Pressure Mean 103 113 Pulse Ox 98 98 Oxygen Delivery Method Room Air Room Air Positive well nourished, well developed and obese General Appearance ED: well developed; N (more content not included)... Normal [facility] L501.4021on 2025 Trop T High Sen 41 ng/L High <=22 [facility] Comment on above: Performed By: #### L 300.3900, L100.0100 #### [facility] [address] [place], [address] M100.678on 2025 M100.678 Pending SARS-CoV-2 (COVID 19) Negative INFLUENZA A Negative INFLUENZA B Negative RSV PCR Negative [facility] Comment on above: Performed By: #### L 501.9100 #### [facility] [address] [place], [address] Magnesiumon 2025 Magnesium [Mass/Vol] 2.0 mg/dL Normal 1.5-2.2 [facility] Comment on above: Performed By: #### L 300.3900, L100.0100 #### [facility] [address] [place], [address] Partial Thromboplast Timeon 2025 aPTT Coag (Bld) [Time] 35.5 s Normal 24.1-36.2 [facility] Comment on above: Performed By: #### L 300.3900, L100.0100 #### [facility] [address] [place], [address] Pro- Brain NATRIURETIC PEPTI Paulino 2025 Natriuretic peptide B (Bld) [Mass/Vol] 8230 pg/mL High <=900 [facility] Comment on above: Result Comment: Hear t Failure Unlikely: < 300 pg/mL Heart Failure Likely < 50 Years: > 450 pg/mL 50-75 Years: > 900 pg/mL >75 Years: > 1800 pg/mL Performed By: #### L 499.0043 #### [facility] [address] [place], [address] Prothrombin Time w/INRon INR Coag (PPP) [Relative time] 1.4 {INR} [facility] Comment on above: Performed By: #### L 300.3900, L100.0100 #### [facility] [address] [place], [address] PT Coag (PPP) [Time] 16.9 s High 11.7-14.9 [facility] Comment on above: Performed By: #### L 300.3900, L100.0100 #### [facility] [address] [place], [address] Thyroid Stim Hormone (TSH)on 2025 TSH 3.160 uIU/mL Normal 0.300-4.200 [facility] Comment on above: Performed By: #### L 300.3900, L100.0100 #### [facility] [address] [place], [address] Troponin T HS 2 HRon 025 Trop T High Sen Normal <=22 [facility] Comment on above: Result Comment: Canc elled via OM: MD Ordered Performed By: #### L 300.3900, L100.0100 #### [facility] [address] [place], [address] Emergency Department Summary on 01-27-2025 Emergency Department Summary [facility] Medical Records Department [address] [place] [address] Emergency Department Summary 01/27/25 MR#: [id number] Acct: [id number] Name: SCARLETT LANDRY Rep #: [id number] : 1960 64 From: John Valdez DO PCP: Care Physician,No Primary Status:DEP ER Location: ED HPI History of Present Illness Chief Complaint: Nosebleed Narrative Narrative: Pt is a 64-year-old male who has been having intermittent nosebleed on the right side from last night into today. Patient had called Dr. Johnson's office, and was told to hold on taking Eliquis. Patient came into the ER with his . Patient had a nasal clip placed on triage while patient was waiting to be seen. When I saw the patient, he was not having any type of active bleeding. Patient has no headache or neck pain. No abdominal pain nausea or vomiting. No other bleeding or bruising. Patient has no blood to the posterior pharynx. REVIEW OF SYSTEMS: Unless otherwise stated in this report the patient's positive and negative responses for review of systems for constitutional, eyes, ENT, cardiovascular, respiratory, gastrointestinal, neurological, , musculoskeletal, and integument systems and related systems to the presenting problem are either stated in the history of present illness or were not pertinent or were negative for the symptoms and/or complaints related to the presenting medical problem. Nurse's notes and vital signs reviewed. The patient is not hypoxic. Vital signs reviewed and patient is not hypoxic. General: The patient appears well and in no apparent distress. Patient is resting comfortably on cart. Not toxic, lethargic, or listless. Skin: Warm, dry, no pallor noted. There is no rash noted. Head: Normocephalic, atraumatic Eye: Normal conjunctiva, no drainage, EOMI. PERRL. Ears, Nose, Mouth, and Throat: oral mucosa is moist. Nares patent. Mouth without vesicles. Patient has evidence of abrasions to the medial wall of the right nostril. Patient has no active bleeding noted from the right nostril, no blood to the posterior pharynx. Cardiovascular: Regular Rate and Rhythm, no murmurs, gallops, or rubs Respiratory: Patient is in no distress, no accessory muscle use, lungs are clear to auscultation, no wheezing, rales or rhonchi Back: non-tender, no CVA tenderness bilaterally to percussion. GI: Soft, obese, no tenderness to palpation, Musculoskeletal: The patient has full range of motion of all extremities and joints with no difficulty. Patient has no motor, no sensory deficits. Neurological: A O x4, normal speech, no focal neurological deficits. Psychiatric: Cooperative [facility] Medical History (Updated 01/27/25 @ 15:[address] John Valdez, DO) A-fib NSTEMI (non-ST elevated myocardial infarction) Atrial flutter with rapid ventricular response Essential hypertension History of ETOH abuse Elevated blood pressure reading Home Medications ???Medication ???Instructions ???Recorded ???Last Taken ???Type aspirin 81 mg chewable tablet 81 mg PO BREAKFAST 30 days #30 tab s 12/28/24 Unknown Rx atorvastatin 40 mg tablet 40 mg PO QHS 30 days #30 tabs 12/12 11/04 Unknown Rx losartan 50 mg tablet 50 mg PO DAILY 30 days #30 tabs Unknown Rx metoprolol tartrate 50 mg tablet 50 mg PO BID 30 days #60 tabs 12/12 11/04 Unknown Rx spironolactone 25 mg tablet 25 mg PO DAILY 30 days #30 tabs Unknown Rx amiodarone 200 mg tablet See Rx Instructions PO .COMPLEX Unknown Rx #70 tabs apixaban 5 mg tablet (Eliquis) 5 mg PO BID #180 tabs 01/09/25 Unk nown Rx Held on 01/27/25. Instructions: NOSEBLEED furosemide 40 mg tablet (Lasix) 40 mg PO QDAY 30 days #30 tabs 11/04 Unknown Rx cephalexin 500 mg capsule 500 mg PO Q12 #14 CAPSULES 5 Unknown Rx hydrocodone-acetaminoph en 5-325mg 1 tab PO Q4H PRN PRN Pain 2 days 01/27/25 Unknown Rx 5mg-325mg #8 TABLETS Allergy/AdvReac Type Severity Reaction Status Date / Time No Known Allergies Allergy Verified 01/27/25 12:04 Family History (Reviewed 01/05/25 @ 13:50 by Jessika White CHIEF COMPLIANCE OFFICER, CHIEF COMPLIANCE OFFICER-C) Other COPD (chronic obstructive pulmonary disease) Heart disease Social History household members: spouse Smoking Status: Former smoker how long ago did patient quit smokin years ago alcohol intake: never substance use type: marijuana caffeine: No (None in the last couple of weeks) EXAM Physical Exam Const Vital Signs: 01/27/25 12:05 01/27/25 15:43 Temperature 97.4 F L 97.4 F L Temperature Source Temporal Pulse Rate 98 98 Respiratory Rate 16 16 Blood Pressure 111/82 H 111/82 H Blood Pressure Mean 91 91 Pulse Ox 98 98 Oxygen Delivery Method Room Air MDM MDM MDM Narrative Medical de (more content not included)... Normal [facility] Anion gap in Serum or Plasma Ordered By: Jessika White on 01-05-2025 Anion gap [Moles/Vol] 14 mmol/L 5-15 [facility] BUN/creatinine ratioOrdered By: Jessika White on 01-05-2025 Urea nitrogen/Creatinine [Mass ratio] 20.6 mg/mg High - [facility] Basic Metabolic Profile (BMP )on 01-05-2025 BUN/CRE 20.6 RATIO High - [facility] Comment on above: Performed By: #### L .00 #### [facility] [address] [place], [place], [id number] Calcium [Mass/Vol] 9.5 mg/dL Normal 7.6-11.0 [facility] Comment on above: Performed By: #### L 501.9100 #### [facility] [address] [place], [place], [id number] Chloride [Moles/Vol] 99 mmol/L Normal 98-108 [facility] Comment on above: Performed By: #### L [id number] #### [facility] [address] [place], [address] CO2 [Moles/Vol] 23.4 mmol/L Normal 21.0-32.0 [facility] Comment on above: Performed By: #### L 501.9100 #### [facility] [address] [place], [address] Creatinine [Mass/Vol] 1.49 mg/dL High 0.70-1.20 [facility] Comment on above: Performed By: #### L 501.9100 #### [facility] [address] [place], [address] GAP 14 Normal 5-15 [facility] Comment on above: Performed By: #### L 501.9100 #### [facility] [address] [place], [address] GFR/1.73 sq M.predicted among non-blacks MDRD (S/P/Bld) [Vol rate/Area] 52 mL/min/{1.73_m2} Low >60 [facility] Comment on above: Result Comment: mL/m in/1.73m2 CKD-EPI Creatinine Equation (2020) Performed By: #### L 501.9100 #### [facility] [address] [place], [address] Glucose [Mass/Vol] 99 mg/dL Normal 70-99 [facility] Comment on above: Performed By: #### L 501.9100 #### [facility] [address] [place], [address] Potassium [Moles/Vol] 3.9 mmol/L Normal 3.3-5.1 [facility] Comment on above: Performed By: #### L 501.9100 #### [facility] [address] [place], [address] Sodium [Moles/Vol] 137 mmol/L Normal 133-145 [facility] Comment on above: Performed By: #### L 501.9100 #### [facility] [address] [place], [address] Urea nitrogen [Mass/Vol] 31 mg/dL High 07-30 [facility] Comment on above: Performed By: #### L 501.9100 #### [facility] [address] [place], [address] Carbon dioxide, total [Moles /volume] in Central venous bloodOrdered By: Jessika White on 01-05-2025 CO2 [Moles/Vol] 23.4 mmol/L 21.0-32.0 [facility] Cardiology Visit Reporton Cardiology Visit Report [facility] [address] [place], [place] [address] OFFICE VISIT Date of Service: 01/05/25 MR#: [id number] Acct: [id number] Name: SCARLETT LANDRY Rep #: [id number] : 1960 Provider: ESTEFANY baker Age/Sex: 64/M [place] [facility] [place] Status: Signed HPI HPI History of Present Illness Surgical H P: Yes Details: This is a 64-year-old male who presents the office today for a posthospital follow-up. He presented to [facility] on 07/14/2022 for shortness of breath, [...] Oximetry (%) 100 Intake Visit Reasons: S/P [facility] 12/28 Line Tester Required: No Is patient in pain?: No [...] you fallen in the past year?: No [facility] Medical History (Updated 01/05/25 @ 10:53 by Jessika White CHIEF COMPLIANCE OFFICER, CHIEF COMPLIANCE OFFICER-C) A-fib NSTEMI (non-ST elevated myocardial infarction) Atrial flutter with rapid ventricular response Essential hypertension History of ETOH abuse Elevated blood pressure reading Family History (Reviewed 01/05/25 @ 13:50 by Jessika Whtie CHIEF COMPLIANCE OFFICER, CHIEF COMPLIANCE OFFICER-C) Other COPD (chronic obstructive pulmonary disease) Heart disease Social History (Reviewed 01/05/25 @ 13:50 by Jessika White CHIEF COMPLIANCE OFFICER, CHIEF COMPLIANCE OFFICER-C) household members: spouse Smoking Status: Former smoker how long ago did patient quit smokin years ago alcohol intake: never substance use type: marijuana caffeine: No (None in the last couple of weeks) ROS Const Const: Positive for fatigue; Negative for weakness, headache(s) or frequent falls Eyes Eyes: Negative for bl (more content not included)... [facility] Chloride assayOrdered By: Jeet White on 01-05-2025 Chloride [Moles/Vol] 99 mmol/L 98-108 [facility] [facility] Glomerular filtration rate ( GFR) estimation/1.73 sq m using serum, plasma, or whole bOrdered By: Jessika White on 01-05-2025 GFR/1.73 sq M.predicted among non-blacks MDRD (S/P/Bld) [Vol rate/Area] 52 mL/min/{1.73_m2} Low >60 [facility] Comment on above: mL/min/1.73m2 CKD-EP I Creatinine Equation (2020) Potassium measurement (mass/ volume)Ordered By: Jessika White on 01-05-2025 Potassium (Unsp spec) [Mass/Vol] 3.9 mmol/L 3.3-5.1 [facility] Serum creatinine measurement (mass/volume)Ordered By: Jessika White on 01-05-2025 Creatinine [Mass/Vol] 1.49 mg/dL High 0.70-1.20 [facility] Serum glucose measurement (m ass/volume)Ordered By: Jessika White on 01-05-2025 Glucose [Mass/Vol] 99 mg/dL 70-99 [facility] Serum or plasma calcium stacie urement (mass/volume)Ordered By: Jessika White on 01-05-2025 Calcium [Mass/Vol] 9.5 mg/dL 7.6-11.0 [facility] Serum or plasma urea nitroge n measurement (mass/volume)Ordered By: Jessika White on 01-05-2025 Urea nitrogen [Mass/Vol] 31 mg/dL High 4-19 [facility] Sodium levelOrdered By: Jazmine White on 01-05-2025 Sodium [Moles/Vol] 137 mmol/L 133-145 [facility] Anion gap in Serum or Plasma Ordered By: Joseph Johnson on 12-28-2024 Anion gap [Moles/Vol] 14 mmol/L 5-15 [facility] BUN/creatinine ratioOrdered By: Joseph Johnson on 12-28-2024 Urea nitrogen/Creatinine [Mass ratio] 24.1 mg/mg High 01-30 [facility] Basic Metabolic Profile (BMP )on 12-28-2024 BUN/CRE 24.1 RATIO High 01-30 [facility] Comment on above: Performed By: #### L 014.6500 #### [facility] [address] [place], [place], [id number] Calcium [Mass/Vol] 9.9 mg/dL Normal 7.6-11.0 [facility] Comment on above: Performed By: #### L 501.9100 #### [facility] [address] [place], [address] Chloride [Moles/Vol] 100 mmol/L Normal 98-108 [facility] Comment on above: Performed By: #### L 501.9100 #### [facility] [address] [place], [address] CO2 [Moles/Vol] 25.9 mmol/L Normal 21.0-32.0 [facility] Comment on above: Performed By: #### L 501.9100 #### [facility] [address] [place], [address] Creatinine [Mass/Vol] 1.29 mg/dL High 0.70-1.20 [facility] Comment on above: Performed By: #### L 501.9100 #### [facility] [address] [place], [address] ECRCL 75.91 ml/min Normal 50-250 [facility] Comment on above: Performed By: #### L 501.9100 #### [facility] [address] [place], [address] GAP 14 Normal 5-15 [facility] Comment on above: Performed By: #### L 501.9100 #### [facility] [address] [place], [address] GFR/1.73 sq M.predicted among non-blacks MDRD (S/P/Bld) [Vol rate/Area] 62 mL/min/{1.73_m2} Normal >60 [facility] Comment on above: Result Comment: mL/m in/1.73m2 CKD-EPI Creatinine Equation (2020) Performed By: #### L 501.9100 #### [facility] [address] [place], [address] Glucose [Mass/Vol] 95 mg/dL Normal 70-99 [facility] Comment on above: Performed By: #### L 501.9100 #### [facility] [address] [place], [address] Potassium [Moles/Vol] 4.4 mmol/L Normal 3.3-5.1 [facility] Comment on above: Performed By: #### L 501.9100 #### [facility] [address] [place], [address] Sodium [Moles/Vol] 139 mmol/L Normal 133-145 [facility] Comment on above: Performed By: #### L 501.9100 #### [facility] [address] [place], [address] Urea nitrogen [Mass/Vol] 31 mg/dL High - [facility] Comment on above: Performed By: #### L 501.9100 #### [facility] [address] [place], [address] Carbon dioxide, total [Moles /volume] in Central venous bloodOrdered By: Joseph Johnson on 12-28-2024 CO2 [Moles/Vol] 25.9 mmol/L 21.0-32.0 [facility] Chloride assayOrdered By: Johanna Johnson on 12-28-2024 Chloride [Moles/Vol] 100 mmol/L 98-108 [facility] Discharge Instructionon 12-12 Discharge Instruction [facility] Medical Records Department [address] [place] [address] Instructions for Home/Discharge Instructions 12/28/24 0929 MR#: [id number] Acct: [id number] Name: SCARLETT LANDRY Rep #: [id number] : 1960 64 From: Baudilio Castellanos MD PCP: Care Physician,No Primary Status:ADM IN Discharge Instructions DC O2, [...] can be placed): Home, Self Care 12/28/24 09 Baudilio Castellanos MD CC: Dr. Abhi Chong, ; No Primary Care Physician Signed Normal [facility] Glomerular filtration rate ( GFR) estimation/1.73 sq m using serum, plasma, or whole bOrdered By: Joseph Johnson on 12-28-2024 GFR/1.73 sq M.predicted among non-blacks MDRD (S/P/Bld) [Vol rate/Area] 62 mL/min/{1.73_m2} >60 [facility] Comment on above: mL/min/1.73m2 CKD-EP I Creatinine Equation (2020) Natriuretic peptide.B prohor shilpi N-Terminal [Mass/volume] in Serum or PlasmaOrdered By: Joseph Johnson on 12-28-2024 Natriuretic peptide.B prohormone N-Terminal [Mass/Vol] 4743 pg/mL High <900 [facility] Comment on above: Heart Failure Unlike ly: < 300 pg/mLHeart Failure Likely< 50 Years: > 450 pg/mL50-75 Years: > 900 pg/mL>75 Years: > 1800 pg/mL Potassium measurement (mass/ volume)Ordered By: Joseph Johnson on 12-28-2024 Potassium (Unsp spec) [Mass/Vol] 4.4 mmol/L 3.3-5.1 [facility] Pro- Brain NATRIURETIC PEPTI Paulino 12-28-2024 Natriuretic peptide B (Bld) [Mass/Vol] 4743 pg/mL High <=900 [facility] Comment on above: Result Comment: Hear t Failure Unlikely: < 300 pg/mL Heart Failure Likely < 50 Years: > 450 pg/mL 50-75 Years: > 900 pg/mL >75 Years: > 1800 pg/mL Performed By: #### L 501.9100 #### [facility] [address] [place], [address] Serum creatinine measurement (mass/volume)Ordered By: Joseph Johnson on 12-28-2024 Creatinine [Mass/Vol] 1.29 mg/dL High 0.70-1.20 [facility] Serum glucose measurement (m ass/volume)Ordered By: Joseph Johnson on 12-28-2024 Glucose [Mass/Vol] 95 mg/dL 70-99 [facility] Serum or plasma calcium stacie urement (mass/volume)Ordered By: Joseph Johnson on 12-28-2024 Calcium [Mass/Vol] 9.9 mg/dL 7.6-11.0 [facility] Serum or plasma urea nitroge n measurement (mass/volume)Ordered By: Joseph Johnson on 12-28-2024 Urea nitrogen [Mass/Vol] 31 mg/dL High 4-19 [facility] Sodium levelOrdered By: Napoleon Johnson on 12-28-2024 Sodium [Moles/Vol] 139 mmol/L 133-145 [facility] Absolute lymphocyte countOrd ered By: Baudilio Castellanos on 12-27-2024 Lymphocytes Auto (Unsp spec) [#/Vol] 2.26 10*3/uL 0.83-4.51 [facility] Absolute neutrophil countOrd ered By: Baudilio Castellanos on 12-27-2024 Neutrophils (Bld) [#/Vol] 5.8 10*3/uL 2.0-7.7 [facility] Automated lymphocyte count a s percentage of total leukocytesOrdered By: Baudilio Castellanos on 12-27-2024 Lymphocytes/100 WBC Auto (Unsp spec) 23.6 % 19-41 [facility] Basic Metabolic Profile (BMP )on 12-27-2024 BUN/CRE 22.4 RATIO High 10-20 [facility] Comment on above: Performed By: #### L 501.9100 #### [facility] [address] [place], [address] Calcium [Mass/Vol] 9.7 mg/dL Normal 7.6-11.0 [facility] Comment on above: Performed By: #### L 501.9100 #### [facility] [address] [place], [address] Chloride [Moles/Vol] 101 mmol/L Normal 98-108 [facility] Comment on above: Performed By: #### L 501.9100 #### [facility] [address] [place], [address] CO2 [Moles/Vol] 28.7 mmol/L Normal 21.0-32.0 [facility] Comment on above: Performed By: #### L 501.9100 #### [facility] [address] [place], [address] Creatinine [Mass/Vol] 1.37 mg/dL High 0.70-1.20 [facility] Comment on above: Performed By: #### L 501.9100 #### [facility] [address] [place], [address] ECRCL 71.47 ml/min Normal 50-250 [facility] Comment on above: Performed By: #### L 501.9100 #### [facility] [address] [place], [address] GAP 12 Normal 5-15 [facility] Comment on above: Performed By: #### L 501.9100 #### [facility] [address] [place], [address] GFR/1.73 sq M.predicted among non-blacks MDRD (S/P/Bld) [Vol rate/Area] 58 mL/min/{1.73_m2} Low >60 [facility] Comment on above: Result Comment: mL/m in/1.73m2 CKD-EPI Creatinine Equation (2020) Performed By: #### L 501.9100 #### [facility] [address] [place], [address] Glucose [Mass/Vol] 99 mg/dL Normal 70-99 [facility] Comment on above: Performed By: #### L 501.9100 #### [facility] [address] [place], [address] Potassium [Moles/Vol] 4.1 mmol/L Normal 3.3-5.1 [facility] Comment on above: Performed By: #### L 501.9100 #### [facility] [address] [place], [address] Sodium [Moles/Vol] 141 mmol/L Normal 133-145 [facility] Comment on above: Performed By: #### L 501.9100 #### [facility] [address] [place], [address] Urea nitrogen [Mass/Vol] 31 mg/dL High 4-19 [facility] Comment on above: Performed By: #### L 501.9100 #### [facility] [address] [place], [address] Basophil percentageOrdered B y: Baudilio Castellanos on 12-27-2024 Basophils/100 WBC (Bld) 0.3 % 0-1 [facility] CBC W/Diff, Automatedon 12-12 Absolute Lymph 2.26 X10 3/uL Normal 0.83-4.51 [facility] Comment on above: Performed By: #### L 501.9100 #### [facility] [address] [place], [address] Absolute Neut 5.8 X10 3/uL Normal 2.0-7.7 [facility] Comment on above: Performed By: #### L 501.9100 #### [facility] [address] [place], [address] Basophils/100 WBC (Bld) 0.3 % Normal 0-1 [facility] Comment on above: Performed By: #### L 501.9100 #### [facility] [address] [place], [address] Eosinophils/100 WBC (Bld) 2.3 % Normal 0-5 [facility] Comment on above: Performed By: #### L 501.9100 #### [facility] [address] [place], [address] Erythrocyte distribution width (RBC) [Ratio] 14.3 % Normal 11.6-14.6 [facility] Comment on above: Performed By: #### L 501.9100 #### [facility] [address] [place], [address] Hematocrit (Bld) [Volume fraction] 45.0 % Normal 40-54 [facility] Comment on above: Performed By: #### L 501.9100 #### [facility] [address] [place], [address] Hemoglobin (Bld) [Mass/Vol] 14.2 g/dL Normal 13.0-16.5 [facility] Comment on above: Performed By: #### L 501.9100 #### [facility] [address] [place], [address] IG% 0.400 Normal 0.0-0.9 [facility] Comment on above: Result Comment: IG% - Immature Granulocytes (promyelocytes, myelocytes and metamyelocytes) > 1% indicates that a LEFT SHIFT is Present. Performed By: #### L 501.9100 #### [facility] [address] [facility] [place], [address] Lymphocytes/100 WBC (Bld) 23.6 % Normal 19-41 [facility] Comment on above: Performed By: #### L 501.00 #### [facility] [address] [place], [address] MCH (RBC) [Entitic mass] 30.2 pg Normal 27.0-32.0 [facility] Comment on above: Performed By: #### L 501.9100 #### [facility] [address] [place], [address] MCHC (RBC) [Mass/Vol] 31.6 g/dL Low 32-36 [facility] Comment on above: Performed By: #### L 501.9100 #### [facility] [address] [place], [address] MCV (RBC) [Entitic vol] 95.7 fL High 80-94 [facility] Comment on above: Performed By: #### L 501.9100 #### [facility] [address] [place], [address] Monocytes/100 WBC (Bld) 12.7 % High 0-10 [facility] Comment on above: Performed By: #### L 501.9100 #### [facility] [address] [place], [address] Neutrophils/100 WBC (Bld) 60.7 % Normal 47-70 [facility] Comment on above: Performed By: #### L .00 #### [facility] [address] [place], [address] Nucleated RBC (Bld) [#/Vol] 0 10*3/uL Normal 0-5 [facility] Comment on above: Performed By: #### L .00 #### [facility] [address] [place], [address] Platelet mean volume (Bld) [Entitic vol] 11.0 fL Normal 6.2-12.0 [facility] Comment on above: Performed By: #### L .00 #### [facility] [address] [place], [address] Platelets (Bld) [#/Vol] 231 10*3/uL Normal 150-450 [facility] Comment on above: Performed By: #### L .00 #### [facility] [address] [place], [address] RBC (Bld) [#/Vol] 4.70 10*6/uL Normal 4.6-6.2 [facility] Comment on above: Performed By: #### L .00 #### [facility] [address] [place], [address] RDW SD 50.0 fl High 35.1-43.9 [facility] Comment on above: Performed By: #### L .00 #### [facility] [address] [place], [address] WBC (Bld) [#/Vol] 9.6 10*3/uL Normal 4.4-11.0 [facility] Comment on above: Performed By: #### L 501.9100 #### [facility] [address] [place], [place], [id number] Eosinophil percentageOrdered By: Baudilio Castellanos on 12-27-2024 Eosinophils/100 WBC (Bld) 2.3 % 0-5 [facility] Erythrocyte distribution wid th ratioOrdered By: Baudilio Castellanos on 12-27-2024 Erythrocyte distribution width (RBC) [Ratio] 14.3 % 11.6-14.6 [facility] Erythrocyte distribution wid th standard deviationOrdered By: Baudilio Castellanos on 12-27-2024 Erythrocyte distribution width (RBC) [Ratio] 50.0 fl High 35.1-43.9 [facility] Hematocrit Auto (Bld) [Volum e fraction]Ordered By: Baudilio Castellanos on 12-27-2024 Hematocrit (Bld) [Volume fraction] 45.0 % 40-54 [facility] Hemoglobin measurementOrdere d By: Baudilio Castellanos on 12-27-2024 Hemoglobin (Bld) [Mass/Vol] 14.2 g/dL 13.0-16.5 [facility] Immature granulocytes/100 WB C Auto (Bld)Ordered By: Baudilio Castellanos on 12-27-2024 Immature granulocytes/100 WBC (Bld) 0.400 % 0.0-0.9 [facility] Comment on above: IG% - Immature Granu locytes (promyelocytes, myelocytes and metamyelocytes) > 1% indicates that a LEFT SHIFT is Present. MCV (mean corpuscular volume ) determinationOrdered By: Baudilio Castellanos on 12-27-2024 MCV (RBC) [Entitic vol] 95.7 fL High 80-94 [facility] Mean corpuscular hemoglobin (MCH) determinationOrdered By: Baudilio Castellanos 12-27-2024 MCH (RBC) [Entitic mass] 30.2 pg 27.0-32.0 [facility] Mean corpuscular hemoglobin concentration (MCHC) determinationOrdered By: Baudilio Castellanos on 12-27-2024 MCHC (RBC) [Mass/Vol] 31.6 g/dL Low 32-36 [facility] Mean platelet volume determi nationOrdered By: Baudilio Castellanos on 12-27-2024 Platelet mean volume (Bld) [Entitic vol] 11.0 fL 6.2-12.0 [facility] Monocyte percentageOrdered B y: Baudilio Castellanos on 12-27-2024 Monocytes/100 WBC (Bld) 12.7 % High 0-10 [facility] Neutrophil percentageOrdered By: Baudilio Castellanos on 12-27-2024 Neutrophils/100 WBC (Bld) 60.7 % 47-70 [facility] Nucleated red blood cell per centageOrdered By: Baudilio Castellanos on 12-27-2024 Nucleated RBC/100 WBC (Bld) [Ratio] 0 % 0-5 [facility] Platelet countOrdered By: Joey Castellanos on 12-27-2024 Platelets (Bld) [#/Vol] 231 10*3/uL 150-450 [facility] RBC Auto (Bld) [#/Vol]Ordere d By: Baudilio Castellanos on 12-27-2024 RBC (Bld) [#/Vol] 4.70 10*6/uL 4.6-6.2 [facility] White blood cell (WBC) count Ordered By: Baudilio Castellanos on 12-27-2024 WBC (Bld) [#/Vol] 9.6 10*3/uL 4.4-11.0 [facility] 12 Lead EKGon 12-26-[address] [facility] [address] [place] [address] 12 Lead EKG 12/26/24 0526 MR#: [id number] Acct: [id number] Name: SCARLETT LANDRY Rep #: [id number] : 1960 64 From: Joseph Johnson MD Attending Dr: Dr. Baudilio Castellanos MD Status: ADM IN Ordering Dr: Abhi Chong DO Date: 12/26/24 Location: [facility] Sex: M C Admitted: 12/24/24 Test Reason [...] DATA IS UNCONFIRMED Confirmed by Joseph Johnson ([id number]), brands editor JUAN TOSCANO ([id number]) on 12/26/2024 1:27:43 PM Referred By: Confirmed By: Joseph Johnson 12/26/241326 Date Joseph Johnson MD CC: Dr. Abhi Chong DO; Dr. Baudilio Castellanos MD; No Primary Care Physician Signed Normal [facility] Activated partial thrombopla stin time (aPTT) in platelet poor plasma by coagulation aOrdered By: Abhi Chong on 12-26-2024 aPTT Coag (PPP) [Time] 56.2 s High 24.1-36.2 [facility] Basic Metabolic Profile (BMP )on 12-26-2024 BUN/CRE 21.2 RATIO High 10-20 [facility] Comment on above: Performed By: #### L 506.0400, L500.2500, L100.0100, L500.4100, L501.9520 ####[facility] [address] [place], [address] Calcium [Mass/Vol] 9.6 mg/dL Normal 7.6-11.0 [facility] Comment on above: Performed By: #### L 506.0400, L500.2500, L100.0100, L500.4100, L501.9520 ####[facility] [address] [place], [address] Chloride [Moles/Vol] 103 mmol/L Normal 98-108 [facility] Comment on above: Performed By: #### L 506.0400, L500.2500, L100.0100, L500.4100, L501.9520 ####[facility] [address] [place], [address] CO2 [Moles/Vol] 22.2 mmol/L Normal 21.0-32.0 [facility] Comment on above: Performed By: #### L 506.0400, L500.2500, L100.0100, L500.4100, L501.9520 ####[facility] [address] [place], [address] Creatinine [Mass/Vol] 1.35 mg/dL High 0.70-1.20 [facility] Comment on above: Performed By: #### L 506.0400, L500.2500, L100.0100, L500.4100, L501.9520 ####[facility] [address] [place], [address] ECRCL 73.01 ml/min Normal 50-250 [facility] Comment on above: Performed By: #### L 506.0400, L500.2500, L100.0100, L500.4100, L501.9520 ####[facility] [address] [place], [address] GAP 13 Normal 5-15 [facility] Comment on above: Performed By: #### L 506.0400, L500.2500, L100.0100, L500.4100, L501.9520 ####[facility] [address] [place], [address] GFR/1.73 sq M.predicted among non-blacks MDRD (S/P/Bld) [Vol rate/Area] 59 mL/min/{1.73_m2} Low >60 [facility] Comment on above: Result Comment: mL/m in/1.73m2 CKD-EPI Creatinine Equation (2020) Performed By: #### L 506.0400, L500.2500, L100.0100, L500.4100, L501.9520 ####[facility] [address] [place], [address] Glucose [Mass/Vol] 110 mg/dL High 70-99 [facility] Comment on above: Performed By: #### L 506.0400, L500.2500, L100.0100, L500.4100, L501.9520 ####[facility] [address] [place], [address] Potassium [Moles/Vol] 3.9 mmol/L Normal 3.3-5.1 [facility] Comment on above: Performed By: #### L 506.0400, L500.2500, L100.0100, L500.4100, L501.9520 ####[facility] [address] [place], [address] Sodium [Moles/Vol] 138 mmol/L Normal 133-145 [facility] Comment on above: Performed By: #### L 506.0400, L500.2500, L100.0100, L500.4100, L501.9520 ####[facility] [address] [place], [address] Urea nitrogen [Mass/Vol] 29 mg/dL High 4-19 [facility] Comment on above: Performed By: #### L 506.0400, L500.2500, L100.0100, L500.4100, L501.9520 ####[facility] [address] [place], [address] CBC W/Diff, Automatedon 12-12 Absolute Lymph 2.96 X10 3/uL Normal 0.83-4.51 [facility] Comment on above: Performed By: #### L 506.0400, L500.2500, L100.0100, L500.4100, L501.9520 ####[facility] [address] [place], [address] Absolute Neut 5.2 X10 3/uL Normal 2.0-7.7 [facility] Comment on above: Performed By: #### L 506.0400, L500.2500, L100.0100, L500.4100, L501.9520 ####[facility] [address] [place], [address] Basophils/100 WBC (Bld) 0.3 % Normal 0-1 [facility] Comment on above: Performed By: #### L 506.0400, L500.2500, L100.0100, L500.4100, L501.9520 ####[facility] [address] [place], [address] Eosinophils/100 WBC (Bld) 1.3 % Normal 0-5 [facility] Comment on above: Performed By: #### L 506.0400, L500.2500, L100.0100, L500.4100, L501.9520 ####[facility] [address] [place], [address] Erythrocyte distribution width (RBC) [Ratio] 14.3 % Normal 11.6-14.6 [facility] Comment on above: Performed By: #### L 506.0400, L500.2500, L100.0100, L500.4100, L501.9520 ####[facility] [address] [place], [address] Hematocrit (Bld) [Volume fraction] 46.1 % Normal 40-54 [facility] Comment on above: Performed By: #### L 506.0400, L500.2500, L100.0100, L500.4100, L501.9520 ####[facility] [address] [place], [address] Hemoglobin (Bld) [Mass/Vol] 15.0 g/dL Normal 13.0-16.5 [facility] Comment on above: Performed By: #### L 506.0400, L500.2500, L100.0100, L500.4100, L501.9520 ####[facility] [address] [place], [address] IG% 0.300 Normal 0.0-0.9 [facility] Comment on above: Result Comment: IG% - Immature Granulocytes (promyelocytes, myelocytes and metamyelocytes) > 1% indicates that a LEFT SHIFT is Present. Performed By: #### L 506.0400, L500.2500, L100.0100, L500.4100, L501.9520 ####[facility] [address] [place], [address] Lymphocytes/100 WBC (Bld) 31.8 % Normal 19-41 [facility] Comment on above: Performed By: #### L 506.0400, L500.2500, L100.0100, L500.4100, L501.9520 ####[facility] [address] [place], [address] MCH (RBC) [Entitic mass] 30.7 pg Normal 27.0-32.0 [facility] Comment on above: Performed By: #### L 506.0400, L500.2500, L100.0100, L500.4100, L501.9520 ####[facility] [address] [place], [address] MCHC (RBC) [Mass/Vol] 32.5 g/dL Normal 32-36 [facility] Comment on above: Performed By: #### L 506.0400, L500.2500, L100.0100, L500.4100, L501.9520 ####[facility] [address] [place], [address] MCV (RBC) [Entitic vol] 94.5 fL High 80-94 [facility] Comment on above: Performed By: #### L 506.0400, L500.2500, L100.0100, L500.4100, L501.9520 ####[facility] [address] [place], [address] Monocytes/100 WBC (Bld) 10.5 % High 0-10 [facility] Comment on above: Performed By: #### L 506.0400, L500.2500, L100.0100, L500.4100, L501.9520 ####[facility] [address] [place], [address] Neutrophils/100 WBC (Bld) 55.8 % Normal 47-70 [facility] Comment on above: Performed By: #### L 506.0400, L500.2500, L100.0100, L500.4100, L501.9520 ####[facility] [address] [place], [address] Nucleated RBC (Bld) [#/Vol] 0 10*3/uL Normal 0-5 [facility] Comment on above: Performed By: #### L 506.0400, L500.2500, L100.0100, L500.4100, L501.9520 ####[facility] [address] [place], [address] Platelet mean volume (Bld) [Entitic vol] 10.7 fL Normal 6.2-12.0 [facility] Comment on above: Performed By: #### L 506.0400, L500.2500, L100.0100, L500.4100, L501.9520 ####[facility] [address] [place], [address] Platelets (Bld) [#/Vol] 206 10*3/uL Normal 150-450 [facility] Comment on above: Performed By: #### L 506.0400, L500.2500, L100.0100, L500.4100, L501.9520 ####[facility] [address] [place], [address] RBC (Bld) [#/Vol] 4.88 10*6/uL Normal 4.6-6.2 [facility] Comment on above: Performed By: #### L 506.0400, L500.2500, L100.0100, L500.4100, L501.9520 ####[facility] [address] [place], [address] RDW SD 49.0 fl High 35.1-43.9 [facility] Comment on above: Performed By: #### L 506.0400, L500.2500, L100.0100, L500.4100, L501.9520 ####[facility] [address] [place], [address] WBC (Bld) [#/Vol] 9.3 10*3/uL Normal 4.4-11.0 [facility] Comment on above: Performed By: #### L 506.0400, L500.2500, L100.0100, L500.4100, L501.9520 ####[facility] [address] [place], [address] Calculated very low density lipoprotein (VLDL) cholesterol measurementOrdered By: Baudilio Castellanos on 12-26-2024 Calculated very low density lipoprotein (VLDL) cholesterol measurement 14 mg/dL 5-40 [facility] Cardiovascular stress test r eportOrdered By: Tim Miller on 12-26-2024 Study report [facility] Cardiovascular Services [address] [place] [address] MR#: [id number] Acct: [id number] Name: SCARLETT LANDRY Rep #: [id number] [...] of 20%. This note was generated with Safari Propertyation software. It may contain incorrectwords, spelling, and punctuation that were not noted in checking the note beforesigning. 12/26/246 Date _ Tim Miller MD CC: Dr. Patric Colmenares MD; Dr. Abhi Chong DO; Dr. Baudilio Castellanos MD; Dr. Yuniel Hoffman MD; No Primary Care Physician ~ Date Dictated: 12/26/241202 Date Transcribed: 12/26/241202 Braid Cutter: RASHIDA Salazar [facility] Work Phone: Echocardiogram study reportO rdered By: Tim Miller on 12-26-2024 Study report [facility] Cardiovascular Services [address] [place] [address] Echo Complete W/ Contrast 12/26/24 0735 MR#: [id number] Acct: [id number] Name: SCARLETT LANDRY Rep #:[id number] : 1960 64 From: Tim Miller MD Attending Dr: Dr. Baudilio Castellanos MD Status: ADM IN Ordering Dr: Abhi Chong DO Da te: 12/24/24 Location: [facility] Sex: M C Admitted: 12/24/24 Reason For [...] Abhi Chong Performed By: Kathy Guzman RDCS 12/26/24 0957 Date _ Tim Miller MD CC: Dr. Abhi Chong DO; Dr. Baudilio Castellanos MD; No Primary Care Physician ~ Date Dictated: 12/26/24 0735 Date Transcribed: 12/26/2457 Braid Cutter: Signed [facility] Work Phone: Electrocardiogram reportOrde red By: Joseph Johnson on 12-26-[address] [facility] Cardiovascular Services [address] [place] [address] 12 Lead EKG 12/24/242228 MR#: [id number] Acct: [id number] Name: SCARLETT LANDRY Rep #:[id number] : 1960 64 From: Joseph valiente MD Attending Dr: Dr. Baudilio Castellanos MD Status: ADM IN Ordering Dr: Abhi Chong DO Da te: 12/24/24 Location: [facility] Sex: M C Admitted: 12/24/24 Test Reason [...] DATA IS UNCONFIRMED Confirmed by Joseph Johnson ([id number]), brands editor JUAN TOSCANO ([id number]) on 12/26/2024 1:28:39 PM Referred By: Confirmed By: Joseph Johnson 12/26/24 1328 Date _ Joseph Johnson MD CC: Dr. Abhi Chong DO; Dr. Baudilio Castellanos MD; No Primary Care Physician ~ Signed [facility] Work Phone: EKG study [facility] Cardiovascular Services [address] [place] [address] 12 Lead EKG 12/26/24 05 MR#: [id number] Acct: [id number] Name: SCARLETT LANDRY Rep #:[id number] : 1960 64 From: Joseph valiente MD Attending Dr: Dr. Baudilio Castellanos MD Status: ADM IN Ordering Dr: Abhi Chong DO Da te: 12/26/24 Location: [facility] Sex: M C Admitted: 12/24/24 Test Reason [...] COMPARISON REQUIRED DATA IS UNCONFIRMED Confirmed by Josehp Johnson ([id number]), brands editor JUAN TOSCANO ([id number]) on 12/26/2024 1:27:43 PM Referred By: Confirmed By: Joseph Johnson 12/26/24 1327 Date _ Joseph Johnson MD CC: Dr. Abhi Chong DO; Dr. Baudilio Castellanos MD; No Primary Care Physician ~ Signed [facility] Work Phone: EKG study [facility] Cardiovascular Services [address] [place] [address] 12 Lead EKG 12/24/24 1649 MR#: [id number] Acct: [id number] Name: SCARLETT LANDRY Rep #:[id number] : 1960 64 From: Joseph valiente MD Attending Dr: Dr. Baudilio Castellanos MD Status: ADM IN Ordering Dr: Yuniel Hoffman MD Date: 12/24 Location: [facility] Sex: M C Admitted: 12/24/24 Test Reason [...] block Abnormal ECG Confirmed by Joseph Johnson ([id number]), brands editor JUAN TOSCANO ([id number]) on 12/26/2024 1:17:30 PM Referred By: NATHAN/GABRIELLA Confirmed By: Joseph Johnson 12/26/24 1317 Date _ Joseph Johnson MD CC: Dr. Baudilio Castellanos MD; Dr. Yuniel Hoffman MD; No Primary Care Physician ~ Signed [facility] Work Phone: LDL calc ser/plasOrdered By: Baudilio Castellanos on 12-26-2024 Cholesterol in LDL [Mass/Vol] 52 mg/dL [facility] Comment on above: Lyqgpikhyq=555-164 m g/dL & Higher Ybuo=537 mg/dL or greaterFriedwald Equation for LDL-C Lipid Profileon 12-26-2024 CHOL:HDL 3.13 Normal [facility] Comment on above: Performed By: #### L 506.0400, L500.2500, L100.0100, L500.4100, L501.9520 ####[facility] [address] [place], [address] Cholesterol [Mass/Vol] 97 mg/dL Normal <=200 [facility] Comment on above: Result Comment: Chol esterol level, Desirable <200 mg/dL Borderline high cholesterol 200-239 mg/dL High cholesterol >=240 mg/dL Recommendations of the NCEP Adult Treatment Panel for the following risk-cutoff thresholds for the [place] population. Performed By: #### L 506.0400, L500.2500, L100.0100, L500.4100, L501.9520 ####[facility] [address] [place], [address] Cholesterol in HDL [Mass/Vol] 31 mg/dL Low [facility] Comment on above: Result Comment: Dian onal Cholesterol Education Program (NCEP) guidelines: <40 mg/dL: Low HDL-cholesterol (major risk factor for CHD) >= 60 mg/dL: High HDL-cholesterol (negative risk factor for CHD) HDL-cholesterol is affected by a number of factors, e.g. smoking, exercise, hormones, sex and age. Performed By: #### L 506.0400, L500.2500, L100.0100, L500.4100, L501.9520 ####[facility] [address] [place], [address] Cholesterol in LDL [Mass/Vol] 52 mg/dL Normal [facility] Comment on above: Result Comment: Bord sowuey=085-608 mg/dL Higher Gxeb=890 mg/dL or greater Friedwald Equation for LDL-C Performed By: #### L 506.0400, L500.2500, L100.0100, L500.4100, L501.9520 ####[facility] [address] [place], [address] Cholesterol in VLDL [Mass/Vol] 14 mg/dL Normal 5-40 [facility] Comment on above: Performed By: #### L 506.0400, L500.2500, L100.0100, L500.4100, L501.9520 ####[facility] [address] [place], [address] Triglyceride [Mass/Vol] 68 mg/dL Normal [facility] Comment on above: Result Comment: The drugs N-Acetylcysteine and Metamizole may falsely depress this assay. Normal range: <150 mg/dL Borderline High: 150-199 mg/dL High: 200-499 mg/dL Very High: >500 mg/dL Performed By: #### L 506.0400, L500.2500, L100.0100, L500.4100, L501.9520 ####[facility] [address] [place], [address] Partial Thromboplast Timeon 12-26-2024 aPTT Coag (Bld) [Time] 56.2 s High 24.1-36.2 [facility] Comment on above: Order Comment: Comme nts: Heparin drip Performed By: #### L 479.4730 #### [facility] [address] [place], [address] Screening total cholesterol/ high density lipoprotein (HDL) cholesterol ratioOrdered By: Baudilio Castellanos on 12-26-2024 Cholesterol.total/Heide sterol in HDL [Mass ratio] 3.13 {ratio} [facility] Serum or plasma cholesterol in HDL measurement (mass/volume)Ordered By: Baudilio Castellanos on 12-26-2024 Cholesterol in HDL [Mass/Vol] 31 mg/dL Low >40 [facility] Comment on above: National Cholesterol Education Program (NCEP) guidelines:<40 mg/dL: Low HDL-cholesterol (major risk factor for CHD)>= 60 mg/dL: High HDL-cholesterol (negative risk factor for CHD)HDL-cholesterol is affected by a number of factors, e.g. smoking, exercise, hormones, sex and age. Serum or plasma cholesterol measurement (mass/volume)Ordered By: Baudilio Castellanos on 12-26-2024 Cholesterol [Mass/Vol] 97 mg/dL <201 [facility] Comment on above: Cholesterol level, D esirable <200 mg/dLBorderline high cholesterol 200-239 mg/dLHigh cholesterol >=240 mg/dLRecommendations of the NCEP Adult Treatment Panel for the following risk-cutoff thresholds for the [place] population. Stress Reporton 12-26-2024 Stress Report [facility] Cardiovascular Services [address] [place] [address] MR#: [id number] Acct: [id number] Name: SCARLETT LANDRY Rep #: [id number] : 1960 64 From: Tim Miller MD Primary Care: Care Physician,No Primary Status: ADM IN Referring Dr: Sy: Bruce Hernandez Stress Test Report Date: 12/26/2024 [...] of 20%. This note was generated with Safari Propertyation software. It may contain incorrect words, spelling, and punctuation that were not noted in checking the note before signing. 12/26/246 Date Tim Miller MD CC: Dr. Patric Colmenares MD; Dr. Abhi Chong DO; Dr. Baudilio Castellanos MD; Dr. Yuniel Hoffman MD; No Primary Care Physician Date Dictated: 12/26/241202 Date Transcribed: 12/26/241202 Braid Cutter: AR Signed Normal [facility] T4 Free Directon 12-26-2024 T4 FREE DIRECT 1.30 ng/dL Normal 0.76-1.46 [facility] Comment on above: Performed By: #### L 506.0400, L500.2500, L100.0100, L500.4100, L501.9520 ####[facility] [address] [place], [address] T4 freeOrdered By: Baudilio gould on 12-26-2024 Free T4 [Mass/Vol] 1.30 ng/dL 0.76-1.46 [facility] TSH DL <= 0.005 mIU/L QnOrde red By: Baudilio Castellanos on 12-26-2024 TSH Qn 2.650 uIU/mL 0.300-4.200 [facility] Thyroid Stim Hormone (TSH)on 12-26-2024 TSH 2.650 uIU/mL Normal 0.300-4.200 [facility] Comment on above: Performed By: #### L 506.0400, L500.2500, L100.0100, L500.4100, L501.9520 ####[facility] [address] [place], [place], [address] Triglycerides measurementOrd ered By: Baudilio Castellanos on 12-26-2024 Triglyceride [Mass/Vol] 68 mg/dL <199 [facility] Comment on above: The drugs N-Acetylcy steine and Metamizole may falsely depress this assay. Normal range: <150 mg/dLBorderline High: 150-199 mg/dLHigh: 200-499 mg/dLVery High: >500 mg/dL Basic Metabolic Profile (BMP )on 12-25-2024 BUN/CRE 19.5 RATIO Normal 10-20 [facility] Comment on above: Performed By: #### L 499.0043 #### [facility] [address] [place], [place], [address] Calcium [Mass/Vol] 9.6 mg/dL Normal 7.6-11.0 [facility] Comment on above: Performed By: #### L 499.0043 #### [facility] [address] [place], [address] Chloride [Moles/Vol] 104 mmol/L Normal 98-108 [facility] Comment on above: Performed By: #### L 499.0043 #### [facility] [address] [place], [address] CO2 [Moles/Vol] 23.4 mmol/L Normal 21.0-32.0 [facility] Comment on above: Performed By: #### L 499.0043 #### [facility] [address] [place], [address] Creatinine [Mass/Vol] 1.40 mg/dL High 0.70-1.20 [facility] Comment on above: Performed By: #### L 499.0043 #### [facility] [address] [place], [address] ECRCL 71.01 ml/min Normal 50-250 [facility] Comment on above: Performed By: #### L 499.0043 #### [facility] [address] [place], [address] GAP 13 Normal 5-15 [facility] Comment on above: Performed By: #### L 499.0043 #### [facility] [address] [place], [address] GFR/1.73 sq M.predicted among non-blacks MDRD (S/P/Bld) [Vol rate/Area] 56 mL/min/{1.73_m2} Low >60 [facility] Comment on above: Result Comment: mL/m in/1.73m2 CKD-EPI Creatinine Equation (2020) Performed By: #### L 499.0043 #### [facility] [address] [place], [address] Glucose [Mass/Vol] 114 mg/dL High 70-99 [facility] Comment on above: Performed By: #### L 499.0043 #### [facility] [address] [place], [address] Potassium [Moles/Vol] 4.1 mmol/L Normal 3.3-5.1 [facility] Comment on above: Performed By: #### L 499.0043 #### [facility] [address] [place], [address] Sodium [Moles/Vol] 141 mmol/L Normal 133-145 [facility] Comment on above: Performed By: #### L 499.0043 #### [facility] [address] [place], [address] Urea nitrogen [Mass/Vol] 27 mg/dL High 4-19 [facility] Comment on above: Performed By: #### L 499.0043 #### [facility] [address] [place], [address] CBC W/Diff, Automatedon 09-04 16-2024 Absolute Lymph 3.05 X10 3/uL Normal 0.83-4.51 [facility] Comment on above: Performed By: #### L 300.3900, L100.0100 #### [facility] [address] [place], [address] Absolute Neut 6.3 X10 3/uL Normal 2.0-7.7 [facility] Comment on above: Performed By: #### L 300.3900, L100.0100 #### [facility] [address] [place], [address] Basophils/100 WBC (Bld) 0.6 % Normal 0-1 [facility] Comment on above: Performed By: #### L 300.3900, L100.0100 #### [facility] [address] [place], [address] Eosinophils/100 WBC (Bld) 0.9 % Normal 0-5 [facility] Comment on above: Performed By: #### L 300.3900, L100.0100 #### [facility] [address] [place], [address] Erythrocyte distribution width (RBC) [Ratio] 14.4 % Normal 11.6-14.6 [facility] Comment on above: Performed By: #### L 300.3900, L100.0100 #### [facility] [address] [place], [address] Hematocrit (Bld) [Volume fraction] 46.4 % Normal 40-54 [facility] Comment on above: Performed By: #### L 300.3900, L100.0100 #### [facility] [address] [place], [address] Hemoglobin (Bld) [Mass/Vol] 14.7 g/dL Normal 13.0-16.5 [facility] Comment on above: Performed By: #### L 300.3900, L100.0100 #### [facility] [address] [place], [address] IG% 0.300 Normal 0.0-0.9 [facility] Comment on above: Result Comment: IG% - Immature Granulocytes (promyelocytes, myelocytes and metamyelocytes) > 1% indicates that a LEFT SHIFT is Present. Performed By: #### L 300.3900, L100.0100 #### [facility] [address] [place], [address] Lymphocytes/100 WBC (Bld) 28.3 % Normal 19-41 [facility] Comment on above: Performed By: #### L 300.3900, L100.0100 #### [facility] [address] [place], [address] MCH (RBC) [Entitic mass] 30.4 pg Normal 27.0-32.0 [facility] Comment on above: Performed By: #### L 300.3900, L100.0100 #### [facility] [address] [place], [address] MCHC (RBC) [Mass/Vol] 31.7 g/dL Low 32-36 [facility] Comment on above: Performed By: #### L 300.3900, L100.0100 #### [facility] [address] [place], [address] MCV (RBC) [Entitic vol] 95.9 fL High 80-94 [facility] Comment on above: Performed By: #### L 300.3900, L100.0100 #### [facility] [address] [place], [address] Monocytes/100 WBC (Bld) 11.9 % High 0-10 [facility] Comment on above: Performed By: #### L 300.3900, L100.0100 #### [facility] [address] [place], [address] Neutrophils/100 WBC (Bld) 58.0 % Normal 47-70 [facility] Comment on above: Performed By: #### L 300.3900, L100.0100 #### [facility] [address] [place], [address] Nucleated RBC (Bld) [#/Vol] 0 10*3/uL Normal 0-5 [facility] Comment on above: Performed By: #### L 300.3900, L100.0100 #### [facility] [address] [place], [address] Platelet mean volume (Bld) [Entitic vol] 10.8 fL Normal 6.2-12.0 [facility] Comment on above: Performed By: #### L 300.3900, L100.0100 #### [facility] [address] [place], [address] Platelets (Bld) [#/Vol] 241 10*3/uL Normal 150-450 [facility] Comment on above: Performed By: #### L 300.3900, L100.0100 #### [facility] [address] [place], [address] RBC (Bld) [#/Vol] 4.84 10*6/uL Normal 4.6-6.2 [facility] Comment on above: Performed By: #### L 300.3900, L100.0100 #### [facility] [address] [place], [address] RDW SD 49.9 fl High 35.1-43.9 [facility] Comment on above: Performed By: #### L 300.3900, L100.0100 #### [facility] [address] [place], [address] WBC (Bld) [#/Vol] 10.8 10*3/uL Normal 4.4-11.0 [facility] Comment on above: Performed By: #### L 300.3900, L100.0100 #### [facility] [address] [place], [address] Consultation - Cardiologyon 12-25-2024 Consultation - Cardiology [facility] Medical Records Department [address] [place] [address] Consultation - Cardiology 12/25/24 1106 MR#: [id number] Acct: [id number] Name: SCARLETT LANDRY Rep #: [id number] : 1960 64 From: Patric Colmenares MD PCP: Care Physician,No Primary Status:ADM IN Location: [place] [address] Assessment Plan Assessment/Plan (1) NSTEMI (non-ST elevated [...] was found to be in atrial flutter. [facility] Medical History Essential hypertension History of ETOH [...] / 79.20 (more content not included)... Normal [facility] Partial Thromboplast Timeon 12-25-2024 aPTT Coag (Bld) [Time] 50.3 s High 24.1-36.2 [facility] Comment on above: Performed By: #### L 499.0043 #### [facility] [address] [place], [address] aPTT Coag (Bld) [Time] 39.4 s High 24.1-36.2 [facility] Comment on above: Order Comment: Comme nts: If not done in prior 24 hours Performed By: #### L 300.3900, L100.0100 #### [facility] [address] [place], [address] aPTT Coag (Bld) [Time] 41.9 s High 24.1-36.2 [facility] Comment on above: Performed By: #### L 300.3900, L100.0100 #### [facility] [address] [place], [address] aPTT Coag (Bld) [Time] 40.5 s High 24.1-36.2 [facility] Comment on above: Performed By: #### L 499.0043 #### [facility] [address] [place], [address] 12 Lead EKGon 12-24-[address] [facility] Cardiovascular Services [address] [place] [address] 12 Lead EKG 12/24/24 2229 MR#: [id number] Acct: [id number] Name: SCARLETT LANDRY Rep #: [id number] : 1960 64 From: Joseph Johnson MD Attending Dr: Dr. Baudilio Castellanos MD Status: ADM IN Ordering Dr: Abhi Chong DO Date: 12/24/24 Location: U Sex: M C Admitted: 12/24/24 Test Reason [...] DATA IS UNCONFIRMED Confirmed by Joseph Johnson ([id number]), brands editor JUAN TOSCANO ([id number]) on 12/26/2024 1:28:39 PM Referred By: Confirmed By: Joseph Johnson 12/26/24 1328 Date Joseph Johnson MD CC: Dr. Abhi Chong DO; Dr. Baudilio Castellanos MD; No Primary Care Physician Signed Normal [facility] [address] [facility] Cardiovascular Services [address] [place] [address] 12 Lead EKG 12/24/24 1649 MR#: [id number] Acct: [id number] Name: SCARLETT LANDRY Rep #: [id number] : 1960 64 From: Joseph Johnson MD Attending Dr: Dr. Baudilio Castellanos MD Status: ADM IN Ordering Dr: Yuniel Hoffman MD Date: 12/24/24 Location: [facility] Sex: M C Admitted: 12/24/24 Test Reason [...] block Abnormal ECG Confirmed by Joseph Johnson ([id number]), brands editor JUAN TOSCANO ([id number]) on 12/26/2024 1:17:30 PM Referred By: NATHAN/GABRIELLA Confirmed By: Joseph Johnson 12/26/24 1317 Date Joseph Johnson MD CC: Dr. Baudilio Castellanos MD; Dr. Yuniel Hoffman MD; No Primary Care Physician Signed Normal [facility] Absolute lymphocyte countOrd ered By: Yuniel Hoffman on 12-24-2024 Lymphocytes Auto (Unsp spec) [#/Vol] 2.76 10*3/uL 0.83-4.51 [facility] Absolute neutrophil countOrd ered By: Yunielchaim Hoffman on 12-24-2024 Neutrophils (Bld) [#/Vol] 6.0 10*3/uL 2.0-7.7 [facility] Alcohol, Blood (Medical)-Ser umon 12-24-2024 SERUM ETOH < 10.1 Normal <=10.0 [facility] Comment on above: Result Comment: This test is for medical purposes only. The legal definition of intoxication varies according to local law. Performed By: #### L 501.9100 #### [facility] [address] [place], [place], [address] Anion gap in Serum or Plasma Ordered By: Yuniel Hoffman on 12-24-2024 Anion gap [Moles/Vol] 12 mmol/L 5- [facility] Automated lymphocyte count a s percentage of total leukocytesOrdered By: Yuniel Hoffman on 12-24-2024 Lymphocytes/100 WBC Auto (Unsp spec) 27.8 % - [facility] BUN/creatinine ratioOrdered By: Yuniel Hoffman on 12-24-2024 Urea nitrogen/Creatinine [Mass ratio] 19.4 mg/mg - [facility] Basic Metabolic Profile (BMP )on 12-24-2024 BUN/CRE 19.4 RATIO Normal - [facility] Comment on above: Performed By: #### L 501.4021, L100.0100, L500.2500, L503.7505 #### [facility] [address] [place], [place], [address] Calcium [Mass/Vol] 10.1 mg/dL Normal 7.6-11.0 [facility] Comment on above: Performed By: #### L 501.4021, L100.0100, L500.2500, L503.7505 #### [facility] [address] [place], [address] Chloride [Moles/Vol] 106 mmol/L Normal 98-108 [facility] Comment on above: Performed By: #### L 501.4021, L100.0100, L500.2500, L503.7505 #### [facility] [address] [place], [address] CO2 [Moles/Vol] 23.4 mmol/L Normal 21.0-32.0 [facility] Comment on above: Performed By: #### L 501.4021, L100.0100, L500.2500, L503.7505 #### [facility] [address] [place], [address] Creatinine [Mass/Vol] 1.37 mg/dL High 0.70-1.20 [facility] Comment on above: Performed By: #### L 501.4021, L100.0100, L500.2500, L503.7505 #### [facility] [address] [place], [address] ECRCL 72.52 ml/min Normal 50-250 [facility] Comment on above: Performed By: #### L 501.4021, L100.0100, L500.2500, L503.7505 #### [facility] [address] [place], [address] GAP 12 Normal 5-15 [facility] Comment on above: Performed By: #### L 501.4021, L100.0100, L500.2500, L503.7505 #### [facility] [address] [place], [address] GFR/1.73 sq M.predicted among non-blacks MDRD (S/P/Bld) [Vol rate/Area] 58 mL/min/{1.73_m2} Low >60 [facility] Comment on above: Result Comment: mL/m in/1.73m2 CKD-EPI Creatinine Equation (2020) Performed By: #### L 501.4021, L100.0100, L500.2500, L503.7505 #### [facility] [address] [place], [address] Glucose [Mass/Vol] 109 mg/dL High 70-99 [facility] Comment on above: Performed By: #### L 501.4021, L100.0100, L500.2500, L503.7505 #### [facility] [address] [place], [address] Potassium [Moles/Vol] 4.6 mmol/L Normal 3.3-5.1 [facility] Comment on above: Performed By: #### L 501.4021, L100.0100, L500.2500, L503.7505 #### [facility] [address] [place], [address] Sodium [Moles/Vol] 141 mmol/L Normal 133-145 [facility] Comment on above: Performed By: #### L 501.4021, L100.0100, L500.2500, L503.7505 #### [facility] [address] [place], [address] Urea nitrogen [Mass/Vol] 27 mg/dL High 4-19 [facility] Comment on above: Performed By: #### L 501.4021, L100.0100, L500.2500, L503.7505 #### [facility] [address] [place], [address] Basophil percentageOrdered B y: Yuniel Hoffman on 12-24-2024 Basophils/100 WBC (Bld) 0.4 % 0-1 [facility] CBC W/Diff, Automatedon 12-12 Absolute Neut Normal 2.0-7.7 [facility] Comment on above: Order Comment: Comme nts: If not done in prior 24 hours Result Comment: DUPL ICATE ORDER Performed By: #### L 300.3900, L100.0100 #### [facility] [address] [place], [address] HCT Normal 40-54 [facility] Comment on above: Order Comment: Comme nts: If not done in prior 24 hours Result Comment: DUPL ICATE ORDER Performed By: #### L 300.3900, L100.0100 #### [facility] [address] [place], [address] HGB Normal 13.0-16.5 [facility] [facility] Comment on above: Order Comment: Comme nts: If not done in prior 24 hours Result Comment: DUPL ICATE ORDER Performed By: #### L 300.3900, L100.0100 #### [facility] [address] [place], [address] MCH Normal 27.0-32.0 [facility] Comment on above: Order Comment: Comme nts: If not done in prior 24 hours Result Comment: DUPL ICATE ORDER Performed By: #### L 300.3900, L100.0100 #### [facility] [address] [place], [address] MCHC Normal 32-36 [facility] Comment on above: Order Comment: Comme nts: If not done in prior 24 hours Result Comment: DUPL ICATE ORDER Performed By: #### L 300.3900, L100.0100 #### [facility] [address] [place], [address] MCV Normal 80-94 [facility] Comment on above: Order Comment: Comme nts: If not done in prior 24 hours Result Comment: DUPL ICATE ORDER Performed By: #### L 300.3900, L100.0100 #### [facility] [address] [place], [address] NEUT% Normal 47-70 [facility] Comment on above: Order Comment: Comme nts: If not done in prior 24 hours Result Comment: DUPL ICATE ORDER Performed By: #### L 300.3900, L100.0100 #### [facility] [address] [place], [address] PLT Normal 150-450 [facility] Comment on above: Order Comment: Comme nts: If not done in prior 24 hours Result Comment: DUPL ICATE ORDER Performed By: #### L 300.3900, L100.0100 #### [facility] [address] [place], [address] RBC Normal 4.6-6.2 [facility] Comment on above: Order Comment: Comme nts: If not done in prior 24 hours Result Comment: DUPL ICATE ORDER Performed By: #### L 300.3900, L100.0100 #### [facility] [address] [place], [address] RDW CV Normal 11.6-14.6 [facility] Comment on above: Order Comment: Comme nts: If not done in prior 24 hours Result Comment: DUPL ICATE ORDER Performed By: #### L 300.3900, L100.0100 #### [facility] [address] [place], [address] RDW SD Normal 35.1-43.9 [facility] Comment on above: Order Comment: Comme nts: If not done in prior 24 hours Result Comment: DUPL ICATE ORDER Performed By: #### L 300.3900, L100.0100 #### [facility] [address] [place], [address] WBC Normal 4.4-11.0 [facility] Comment on above: Order Comment: Comme nts: If not done in prior 24 hours Result Comment: DUPL ICATE ORDER Performed By: #### L 300.3900, L100.0100 #### [facility] [address] [place], [address] Absolute Lymph 2.76 X10 3/uL Normal 0.83-4.51 [facility] Comment on above: Performed By: #### L 501.4021, L100.0100, L500.2500, L503.7505 #### [facility] [address] [place], [address] Absolute Neut 6.0 X10 3/uL Normal 2.0-7.7 [facility] Comment on above: Performed By: #### L 501.4021, L100.0100, L500.2500, L503.7505 #### [facility] [address] [place], [address] Basophils/100 WBC (Bld) 0.4 % Normal 0-1 [facility] Comment on above: Performed By: #### L 501.4021, L100.0100, L500.2500, L503.7505 #### [facility] [address] [place], [address] Eosinophils/100 WBC (Bld) 0.8 % Normal 0-5 [facility] Comment on above: Performed By: #### L 501.4021, L100.0100, L500.2500, L503.7505 #### [facility] [address] [place], [address] Erythrocyte distribution width (RBC) [Ratio] 14.2 % Normal 11.6-14.6 [facility] Comment on above: Performed By: #### L 501.4021, L100.0100, L500.2500, L503.7505 #### [facility] [address] [place], [address] Hematocrit (Bld) [Volume fraction] 45.8 % Normal 40-54 [facility] Comment on above: Performed By: #### L 501.4021, L100.0100, L500.2500, L503.7505 #### [facility] [address] [place], [address] Hemoglobin (Bld) [Mass/Vol] 15.1 g/dL Normal 13.0-16.5 [facility] Comment on above: Performed By: #### L 501.4021, L100.0100, L500.2500, L503.7505 #### [facility] [address] [place], [address] IG% 0.300 Normal 0.0-0.9 [facility] Comment on above: Result Comment: IG% - Immature Granulocytes (promyelocytes, myelocytes and metamyelocytes) > 1% indicates that a LEFT SHIFT is Present. Performed By: #### L 501.4021, L100.0100, L500.2500, L503.7505 #### [facility] [address] [place], [address] Lymphocytes/100 WBC (Bld) 27.8 % Normal 19-41 [facility] Comment on above: Performed By: #### L 501.4021, L100.0100, L500.2500, L503.7505 #### [facility] [address] [place], [address] MCH (RBC) [Entitic mass] 31.4 pg Normal 27.0-32.0 [facility] Comment on above: Performed By: #### L 501.4021, L100.0100, L500.2500, L503.7505 #### [facility] [address] [place], [address] MCHC (RBC) [Mass/Vol] 33.0 g/dL Normal 32-36 [facility] Comment on above: Performed By: #### L 501.4021, L100.0100, L500.2500, L503.7505 #### [facility] [address] [place], [address] MCV (RBC) [Entitic vol] 95.2 fL High 80-94 [facility] Comment on above: Performed By: #### L 501.4021, L100.0100, L500.2500, L503.7505 #### [facility] [address] [place], [address] Monocytes/100 WBC (Bld) 10.6 % High 0-10 [facility] Comment on above: Performed By: #### L 501.4021, L100.0100, L500.2500, L503.7505 #### [facility] [address] [place], [address] Neutrophils/100 WBC (Bld) 60.1 % Normal 47-70 [facility] Comment on above: Performed By: #### L 501.4021, L100.0100, L500.2500, L503.7505 #### [facility] [address] [place], [address] Nucleated RBC (Bld) [#/Vol] 0 10*3/uL Normal 0-5 [facility] Comment on above: Performed By: #### L 501.4021, L100.0100, L500.2500, L503.7505 #### [facility] [address] [place], [address] Platelet mean volume (Bld) [Entitic vol] 11.3 fL Normal 6.2-12.0 [facility] Comment on above: Performed By: #### L 501.4021, L100.0100, L500.2500, L503.7505 #### [facility] [address] [place], [address] Platelets (Bld) [#/Vol] 253 10*3/uL Normal 150-450 [facility] Comment on above: Performed By: #### L 501.4021, L100.0100, L500.2500, L503.7505 #### [facility] [address] [place], [address] RBC (Bld) [#/Vol] 4.81 10*6/uL Normal 4.6-6.2 [facility] Comment on above: Performed By: #### L 501.4021, L100.0100, L500.2500, L503.7505 #### [facility] [address] [place], [address] RDW SD 49.7 fl High 35.1-43.9 [facility] Comment on above: Performed By: #### L 501.4021, L100.0100, L500.2500, L503.7505 #### [facility] [address] [place], [address] WBC (Bld) [#/Vol] 9.9 10*3/uL Normal 4.4-11.0 [facility] Comment on above: Performed By: #### L 501.4021, L100.0100, L500.2500, L503.7505 #### [facility] [address] [place], [address] Carbon dioxide, total [Moles /volume] in Central venous bloodOrdered By: Yuniel Hoffman on 12-24-2024 CO2 [Moles/Vol] 23.4 mmol/L 21.0-32.0 [facility] Chest PA and Lateralon 12-[address] [facility] Imaging Services [address] [place] [address] Chest PA and Lateral MR#: [id number] Acct: [id number] Name: SCARLETT LANDRY Rep #: [id number] : 1960 [place] From: Dylon Trent MD PCP: Care Physician,No Primary Status: [facility] ER Study: Chest PA and Lateral Date of Exam: 12/24/24 Exam# [id number] Ordering Dr: Yuniel Hoffman MD PROCEDURE: CHEST [...] with mild pulmonary vascular congestion. Reading [facility] CC: Dr. Yuniel Hoffman MD; No Primary Care Physician Braid Cutter: Signed Normal [facility] Chloride assayOrdered By: Gabriella Hoffman on 12-24-2024 Chloride [Moles/Vol] 106 mmol/L 98-108 [facility] Echo Complete W/ Contraston 12-24-2024 Echo Complete W/ Contrast [facility] [address] [place] [address] Echo Complete W/ Contrast 12/26/24 0735 MR#: [id number] Acct: [id number] Name: SCARLETT LANDRY Rep #: [id number] : 1960 64 From: Tim Miller MD [...] Date Tim Miller MD CC: Dr. Abhi Chong, DO; Dr. Baudilio Castellanos MD; No Primary Care Physician Date Dictated: 12/26/24734 Date Transcribed: 12/26/24956 Braid Cutter: Signed Normal [facility] Emergency Department Summary on 12-24-2024 Emergency Department Summary [facility] Medical Records Department [address] [place] [address] Emergency Department Summary 12/24/24 MR#: [id number] Acct: [id number] Name: SCARLETT LANDRY Rep #: [id number] : 1960 64 From: Yuniel Hoffman MD [...] Negative for Marfan's Syndrome or Family History [facility] Medical History Essential hypertension History of ETOH [...] back pa (more content not included)... Normal [facility] Eosinophil percentageOrdered By: Yunielchaim Hoffman on 12-24-2024 Eosinophils/100 WBC (Bld) 0.8 % 0-5 [facility] Erythrocyte distribution wid th ratioOrdered By: Yuniel Hoffman on 12-24-2024 Erythrocyte distribution width (RBC) [Ratio] 14.2 % 11.6-14.6 [facility] Erythrocyte distribution wid th standard deviationOrdered By: Yunielchaim Hoffman on 12-24-2024 Erythrocyte distribution width (RBC) [Ratio] 49.7 fl High 35.1-43.9 [facility] Glomerular filtration rate ( GFR) estimation/1.73 sq m using serum, plasma, or whole bOrdered By: Yuniel Hoffman on 12-24-2024 GFR/1.73 sq M.predicted among non-blacks MDRD (S/P/Bld) [Vol rate/Area] 58 mL/min/{1.73_m2} Low >60 [facility] Comment on above: mL/min/1.73m2 CKD-EP I Creatinine Equation (2020) H AND P Exam - [facility] 12-24-2024 H&P Exam - Hospitalist [facility] Medical Records Department [address] [place] [address] H P Exam - Hospitalist 12/24/24 1930 MR#: [id number] Acct: [id number] Name: SCARLETT LANDRY Rep #: [id number] : 1960 64 From: Abhi Chong DO PCP: Care Physician,No Primary Status:ADM IN Location: [place] [address] HPI - General General Date of Admission: 12/24/24 Date of Service: 12/24/24 Chief Complaint: Exertional dyspnea and lower extremity swelling HPI Narrative SCARLETT LANDRY, is a 64 M who presented to [facility] ED on 12/24/2024 with exertional dyspnea and [...] currently. Will be admitted for further management. [facility] Medical History Essential hypertension History of ETOH [...] distress Constituti (more content not included)... Normal [facility] Hematocrit Auto (Bld) [Volum e fraction]Ordered By: Yuniel Hoffman on 12-24-2024 Hematocrit (Bld) [Volume fraction] 45.8 % 40-54 [facility] Hemoglobin measurementOrdere d By: [facility] on 12-24-2024 Hemoglobin (Bld) [Mass/Vol] 15.1 g/dL 13.0-16.5 [facility] Immature granulocytes/100 WB C Auto (Bld)Ordered By: Yuniel Hoffman on 12-24-2024 Immature granulocytes/100 WBC (Bld) 0.300 % 0.0-0.9 [facility] Comment on above: IG% - Immature Granu locytes (promyelocytes, myelocytes and metamyelocytes) > 1% indicates that a LEFT SHIFT is Present. International normalized rat io (INR) calculationOrdered By: Yuniel Hoffman on 12-24-2024 INR Coag (Bld) [Relative time] 1.2 {INR} [facility] L501.4021on 12-24-2024 Trop T High Sen 60 ng/L Invalid Interpretation Code <=22 [facility] Comment on above: Result Comment: Crit ical Result(s) Called at 12/24/2024-18:42 by Henrik Lundberg to Ambika Parish??Results read back by same. Performed By: #### L 501.9100 #### [facility] [address] [facility] [address] [facility] [address] [place], [place], [id number] MCV (mean corpuscular volume ) determinationOrdered By: Yuniel Hoffman on 12-24-2024 MCV (RBC) [Entitic vol] 95.2 fL High 80-94 [facility] Magnesiumon 12-24-2024 Magnesium [Mass/Vol] 2.3 mg/dL High 1.5-2.2 [facility] Comment on above: Performed By: #### L 501.2300, L501.5200 #### [facility] [address] [place], [place], [id number] Magnesium measurement (mass/ volume)Ordered By: Abhi Chong on 12-24-2024 Magnesium (Unsp spec) [Mass/Vol] 2.3 mg/dL High 1.5-2.2 [facility] Mean corpuscular hemoglobin (MCH) determinationOrdered By: Yunielchaim Samanoo on 12-24-2024 MCH (RBC) [Entitic mass] 31.4 pg 27.0-32.0 [facility] Mean corpuscular hemoglobin concentration (MCHC) determinationOrdered By: Yunielchaim Samanoo on 12-24-2024 MCHC (RBC) [Mass/Vol] 33.0 g/dL 32-36 [facility] Mean platelet volume determi nationOrdered By: Yunielchaim Samanoo on 12-24-2024 Platelet mean volume (Bld) [Entitic vol] 11.3 fL 6.2-12.0 [facility] Monocyte percentageOrdered B y: Yunielchaim Samanoo on 12-24-2024 Monocytes/100 WBC (Bld) 10.6 % High 0-10 [facility] Natriuretic peptide.B prohor shilpi N-Terminal [Mass/volume] in Serum or PlasmaOrdered By: Yunielchaim Hoffman on 12-24-2024 Natriuretic peptide.B prohormone N-Terminal [Mass/Vol] 7117 pg/mL High <900 [facility] Comment on above: Heart Failure Unlike ly: < 300 pg/mLHeart Failure Likely< 50 Years: > 450 pg/mL50-75 Years: > 900 pg/mL>75 Years: > 1800 pg/mL Neutrophil percentageOrdered By: Yuniel Hoffman on 12-24-2024 Neutrophils/100 WBC (Bld) 60.1 % 47-70 [facility] Nucleated red blood cell per centageOrdered By: Yunielchaim Hoffman on 12-24-2024 Nucleated RBC/100 WBC (Bld) [Ratio] 0 % 0-5 [facility] Phosphoruson 12-24-2024 Phosphate [Mass/Vol] 3.6 mg/dL Normal 2.7-4.5 [facility] Comment on above: Performed By: #### L 501.2300, L501.5200 #### [facility] [address] [place], [place], [address] Platelet countOrdered By: Gabriella chaim Dalton on 12-24-2024 Platelets (Bld) [#/Vol] 253 10*3/uL 150-450 [facility] Potassium measurement (mass/ volume)Ordered By: Yuniel Hoffman on 12-24-2024 Potassium (Unsp spec) [Mass/Vol] 4.6 mmol/L 3.3-5.1 [facility] Pro- Brain NATRIURETIC PEPTI Paulino 12-24-2024 Natriuretic peptide B (Bld) [Mass/Vol] 7117 pg/mL High <=900 [facility] Comment on above: Result Comment: Hear t Failure Unlikely: < 300 pg/mL Heart Failure Likely < 50 Years: > 450 pg/mL 50-75 Years: > 900 pg/mL >75 Years: > 1800 pg/mL Performed By: #### L 501.9100 #### [facility] [address] [place], [place], [address] Prothrombin Time w/INRon INR Coag (PPP) [Relative time] 1.2 {INR} Normal [facility] Comment on above: Order Comment: Comme nts: If not done in prior 24 hours Performed By: #### L 300.3900, L100.0100 #### [facility] [address] [place], [place], [address] PT Coag (PPP) [Time] 15.8 s High 11.7-14.9 [facility] Comment on above: Order Comment: Comme nts: If not done in prior 24 hours Performed By: #### L 300.3900, L100.0100 #### [facility] [address] [place], [place], [id number] Prothrombin timeOrdered By: Yunielchaim Hoffman on 12-24-2024 PT Coag (PPP) [Time] 15.8 s High 11.7-14.9 [facility] RBC Auto (Bld) [#/Vol]Ordere d By: Yunielchaim Hoffman on 12-24-2024 RBC (Bld) [#/Vol] 4.81 10*6/uL 4.6-6.2 [facility] Serum creatinine measurement (mass/volume)Ordered By: Yuniel Hoffman on 12-24-2024 Creatinine [Mass/Vol] 1.37 mg/dL High 0.70-1.20 [facility] Serum glucose measurement (m ass/volume)Ordered By: Yuniel Hoffman on 12-24-2024 Glucose [Mass/Vol] 109 mg/dL High 70-99 [facility] Serum or plasma calcium stacie urement (mass/volume)Ordered By: Yunielchaim Hoffman on 12-24-2024 Calcium [Mass/Vol] 10.1 mg/dL 7.6-11.0 [facility] Serum or plasma ethanol stacie urement (mass/volume)Ordered By: Abhi Chong on 12-24-2024 Ethanol [Mass/Vol] mg/dL <10.1 [facility] Comment on above: This test is for med ical purposes only. The legal definition of intoxication varies according to local law. Serum or plasma urea nitroge n measurement (mass/volume)Ordered By: Yunielchaim Hoffman on 12-24-2024 Urea nitrogen [Mass/Vol] 27 mg/dL High 4-19 [facility] Sodium levelOrdered By: Yunielchaim Hoffman on 12-24-2024 Sodium [Moles/Vol] 141 mmol/L 133-145 [facility] Troponin T HS 2 HRon 025 Trop T High Sen 59 ng/L Invalid Interpretation Code <=22 [facility] Comment on above: Result Comment: Crit ical Result(s) Called at 12/24/2024-:28 by Henrik Davis??Results read back by same. Performed By: #### L 499.0043 #### [facility] [address] [place], [address] Troponin T HS 4 HRon 025 Trop T High Sen 70 ng/L Invalid Interpretation Code <=22 [facility] Comment on above: Result Comment: Crit ical Result(s) Called at 12/24/2024-23:00 by Henrik Gagnon.??Results read back by same. Performed By: #### L 499.0043 #### [facility] [address] [place], [address] Trop T High Sen Normal <=22 [facility] Comment on above: Result Comment: DUPL ICATE ORDER Performed By: #### L 300.3900, L100.0100 #### [facility] [address] [place], [address] Troponin T.cardiac [Mass/vol ume] in Serum or Plasma by High sensitivity methodOrdered By: Abhi Chong on 12-24-2024 Troponin T.cardiac High sensitivity method [Mass/Vol] 70 ng/L Critically high <22 [facility] Comment on above: Critical Result(s) C alled at 12/24/2024-23:00 by Henrik Gagnon. Results read back by same. Troponin T.cardiac [Mass/vol ume] in Serum or Plasma by High sensitivity methodOrdered By: Yuniel Hoffman on 12-24-2024 Troponin T.cardiac High sensitivity method [Mass/Vol] 59 ng/L Critically high <22 [facility] Comment on above: Critical Result(s) C alled at 12/24/2024-20:28 by Henrik Davis Results read back by same. Troponin T.cardiac High sensitivity method [Mass/Vol] 60 ng/L Critically high <22 [facility] Comment on above: Critical Result(s) C alled at 12/24/2024-18:42 by Henrik Lundberg to Mabika Jem Results read back by same. White blood cell (WBC) count Ordered By: Yuniel Hoffman on 12-24-2024 WBC (Bld) [#/Vol] 9.9 10*3/uL 4.4-11.0 [facility] Absolute lymphocyte countOrd ered By: Dr. Ro on 07-16-2022 Lymphocytes Auto (Unsp spec) [#/Vol] 2.05 10*3/uL 0.83-4.51 [facility] Basophil percentageOrdered B y: Dr. Ro on 07-16-2022 Basophil percentage 3.8 mg/dL 2.5-4.9 [facility] Basophils/100 WBC (Bld) 0.5 % 0-1 [facility] Chloride [Moles/Vol] 105 mmol/L 98-107 [facility] Eosinophils/100 WBC (Bld) 2.1 % 0-5 [facility] Glucose [Mass/Vol] 90 mg/dL 74-106 [facility] Neutrophils (Bld) [#/Vol] 5.3 10*3/uL 2.0-7.7 [facility] Neutrophils/100 WBC (Bld) 60.9 % 47-70 [facility] Potassium [Moles/Vol] 3.4 mmol/L 3.5-5.1 [facility] Sodium [Moles/Vol] 140 mmol/L 136-145 [facility] WBC (Bld) [#/Vol] 8.7 10*3/uL 4.4-11.0 [facility] Blood erythrocytes count (nu mber/volume)Ordered By: Dr. Ro on 07-16-2022 RBC (Bld) [#/Vol] 4.81 10*6/uL 4.6-6.2 [facility] Blood hemoglobin measurement (mass/volume)Ordered By: Dr. Ro on 07-16-2022 Hemoglobin (Bld) [Mass/Vol] 14.4 g/dL 13.0-16.5 [facility] Blood lymphocytes/100 leukoc ytesOrdered By: Dr. Ro on 07-16-2022 Lymphocytes/100 WBC (Bld) 23.7 % 19-41 [facility] Blood monocytes/100 leukocyt esOrdered By: Dr. Ro on 07-16-2022 Monocytes/100 WBC (Bld) 12.6 % 0-10 [facility] Blood platelet mean volumeOr dered By: Dr. Ro on 07-16-2022 Platelet mean volume (Bld) [Entitic vol] 11.3 fL 6.2-12.0 [facility] Determination of erythrocyte mean corpuscular volume (MCV)Ordered By: Dr. Ro on 07-16-2022 MCV (RBC) [Entitic vol] 97.3 fL 80-94 [facility] Hematocrit Auto (Bld) [Volum e fraction]Ordered By: Dr. Ro on 07-16-2022 Hematocrit (Bld) [Volume fraction] 46.8 % 40-54 [facility] - Chemistry and C hemistry - challengeOrdered By: Dr. Ro on 07-16-2022 CO2 [Moles/Vol] 31.0 mmol/L 21.0-32.0 [facility] Magnesium [Mass/Vol] 2.2 mg/dL 1.6-2.6 [facility] Urea nitrogen/Creatinine [Mass ratio] 17.6 mg/mg 10-20 [facility] - Hematology and Cell countsOrdered By: Dr. Ro on 07-16-2022 Erythrocyte distribution width (RBC) [Entitic vol] 49.5 fL 35.1-43.9 [facility] Erythrocyte distribution width (RBC) [Ratio] 13.7 % 11.6-14.6 [facility] Immature granulocytes/100 WBC (Bld) 0.200 % 0.0-0.9 [facility] Comment on above: IG% - Immature Granu locytes (promyelocytes, myelocytes and metamyelocytes) > 1% indicates that a LEFT SHIFT is Present. MCH (RBC) [Entitic mass] 29.9 pg 27.0-32.0 [facility] Nucleated RBC/100 WBC (Bld) [Ratio] 0 % 0-5 [facility] MCHC Auto (RBC) [Mass/Vol]Or dered By: Dr. Ro on 07-16-2022 MCHC (RBC) [Mass/Vol] 30.8 g/dL 32-36 [facility] No Panel InformationOrdered By: Dr. Ro on 07-16-2022 Estimated Creatinine Clearance Calc 56.41 ml/min [facility] Estimated GFR (MDRD) Amer 65 mL/min >60 [facility] Comment on above: GFR Calc Estimated GFR (MDRD) Non-Af Amer 54 mL/min >60 [facility] Comment on above: Non- GFR Calc Platelets bldOrdered By: Dr. Ro on 07-16-2022 Platelets (Bld) [#/Vol] 215 10*3/uL 150-450 [facility] Serum or plasma calcium stacie urement (mass/volume)Ordered By: Dr. Ro on 07-16-2022 Calcium [Mass/Vol] 9.5 mg/dL 8.5-10.1 [facility] Serum or plasma creatinine m easurement (mass/volume)Ordered By: Dr. Ro on 07-16-2022 Creatinine [Mass/Vol] 1.42 mg/dL 0.70-1.30 [facility] Comment on above: The validity of the calculated GFR & GFRAA in patients over 70 years has not been determined. Clinical correlation is essential. Serum or plasma urea nitroge n measurement (mass/volume)Ordered By: Dr. Ro on 07-16-2022 Urea nitrogen [Mass/Vol] 25 mg/dL 7-18 [facility] Thin prep Papanicolaou smear with manual screeningOrdered By: Dr. Ro on 07-16-2022 Thin prep Papanicolaou smear with manual screening 4 5-15 [facility] Basophil percentageOrdered B y: Dr. Valderrama on 07-15-2022 Bilirubin [Mass/Vol] 1.20 mg/dL 0.20-1.00 [facility] Comment on above: For patients on eltr ombopag therapy, use of Dimension [place] TBIL is not recommended. Cholesterol [Mass/Vol] 88 mg/dL <200 [facility] Comment on above: <200 mg/dL Desirable 200-240 mg/dL Borderline >240 mg/dL High Risk Protein [Mass/Vol] 6.6 g/dL 6.4-8.2 [facility] Triglyceride [Mass/Vol] 65 mg/dL <199 [facility] Comment on above: The drugs N-Acetylcy steine and Metamizole may falsely depress this assay.Serum Triglycerides Reference Interval Normal <150 mg/dL Borderline high 150 - 199 mg/dL High 200 - 499 mg/dL Very High > or = 500 mg/dL Laboratory - Chemistry and C hemistry - challengeOrdered By: Dr. Valderrama on 07-15-2022 ALP [Catalytic activity/Vol] 66 U/L 45-117 [facility] ALT [Catalytic activity/Vol] 34 U/L 16-61 [facility] Globulin (S) [Mass/Vol] 3.3 g/dL 2.2-4.2 [facility] No Panel InformationOrdered By: Dr. Valderrama on 07-15-2022 Thyroid Stimulating Hormone (TSH) 2.51 uIU/mL 0.358-3.74 [facility] Troponin I High Sensitivity 70 pg/mL 3.0-78.0 [facility] Comment on above: Please Note: New Taryn t Units and Gender Specific Reference Ranges. For more information see Policy Stat Procedure [place] High Sensitivity Troponin (TNIH) and attachments. Serum or plasma albumin stacie urement (mass/volume)Ordered By: Dr. Valderrama on 07-15-2022 Albumin [Mass/Vol] 3.3 g/dL 3.2-5.0 [facility] Serum or plasma albumin/glob ulin mass ratioOrdered By: Dr. Valderrama on 07-15-2022 Albumin/Globulin [Mass ratio] 1.0 {ratio} 0.9-2.4 [facility] Serum or plasma cholesterol in HDL measurement (mass/volume)Ordered By: Dr. Valderrama on 07-15-2022 Cholesterol in HDL [Mass/Vol] 27 mg/dL >40 [facility] Comment on above: The drugs N-Acetylcy steine and Metamizole may falsely depress this assay. Reference Range HDL <40 mg/dL Low HDL Cholesterol HDL >or= 60 mg/dL High HDL Cholesterol Serum or plasma cholesterol in VLDL measurement (mass/volume)Ordered By: Dr. Valderrama on 07-15-2022 Cholesterol in VLDL [Mass/Vol] 13 mg/dL 5-40 [facility] Serum or plasma low density lipoprotein (LDL) cholesterol measurement (mass/volume)Ordered By: Dr. Valderrama on 07-15-2022 Cholesterol in LDL [Mass/Vol] 48 mg/dL 0-130 [facility] Thin prep Papanicolaou smear with manual screeningOrdered By: Dr. Valderrama on 07-15-2022 Thin prep Papanicolaou smear with manual screening 33 U/L 15-37 [facility] Absolute lymphocyte countOrd ered By: Dr. Moise on 07-14-2022 Lymphocytes Auto (Unsp spec) [#/Vol] 2.21 10*3/uL 0.83-4.51 [facility] Basophil percentageOrdered B y: Dr. Moise on 07-14-2022 Basophils/100 WBC (Bld) 0.4 % 0-1 [facility] Chloride [Moles/Vol] 109 mmol/L 98-107 [facility] Eosinophils/100 WBC (Bld) 1.1 % 0-5 [facility] Glucose [Mass/Vol] 87 mg/dL 74-106 [facility] Neutrophils (Bld) [#/Vol] 5.7 10*3/uL 2.0-7.7 [facility] Neutrophils/100 WBC (Bld) 62.5 % 47-70 [facility] Potassium [Moles/Vol] 4.2 mmol/L 3.5-5.1 [facility] Sodium [Moles/Vol] 142 mmol/L 136-145 [facility] WBC (Bld) [#/Vol] 9.1 10*3/uL 4.4-11.0 [facility] Blood erythrocytes count (nu mber/volume)Ordered By: Dr. Moise on 07-14-2022 RBC (Bld) [#/Vol] 4.99 10*6/uL 4.6-6.2 [facility] Blood hemoglobin measurement (mass/volume)Ordered By: Dr. Moise on 07-14-2022 Hemoglobin (Bld) [Mass/Vol] 15.4 g/dL 13.0-16.5 [facility] Blood lymphocytes/100 leukoc ytesOrdered By: Dr. Moise on 07-14-2022 Lymphocytes/100 WBC (Bld) 24.4 % 19-41 [facility] Blood monocytes/100 leukocyt esOrdered By: Dr. Moise on 07-14-2022 Monocytes/100 WBC (Bld) 11.4 % 0-10 [facility] Blood platelet mean volumeOr dered By: Dr. Moise on 07-14-2022 Platelet mean volume (Bld) [Entitic vol] 11.7 fL 6.2-12.0 [facility] CNOVon 07-14-2022 CNOV Office Visit ([facility] ) SCARLETT LANDRY ([id number]) 1960 M Date Time Provider Department 07/14/22 3:15 PM MICHELLE FIGUEROA [facility] During your visit today, we recorded the following information about you: Temperature Pulse Respiration Blood pressure 98 degrees 92/minute 18/minute 138/98 Weight 134.7 kg Michelle Figueroa PA-C 07/14/2022 3:05 PM Signed Patient [facility] with a chief complaint of shortness [...] emergency department. His will take him to [facility]. Vital signs stable here. BP 138/98 [...] Encounter Status:Closed by MICHELLE FIGUEROA on 07/14/22 [facility] Determination of erythrocyte mean corpuscular volume (MCV)Ordered By: Dr. Moise on 07-14-2022 MCV (RBC) [Entitic vol] 97.8 fL 80-94 [facility] Hematocrit Auto (Bld) [Volum e fraction]Ordered By: Dr. Moise on 07-14-2022 Hematocrit (Bld) [Volume fraction] 48.8 % 40-54 [facility] Laboratory - Chemistry and C hemistry - challengeOrdered By: Dr. Moise on 07-14-2022 CO2 [Moles/Vol] 28.0 mmol/L 21.0-32.0 [facility] Natriuretic peptide B (Bld) [Mass/Vol] 896.0 pg/mL 0-100 [facility] Urea nitrogen/Creatinine [Mass ratio] 17.2 mg/mg 10-20 [facility] Laboratory - Hematology and Cell countsOrdered By: Dr. Moise on 07-14-2022 Erythrocyte distribution width (RBC) [Entitic vol] 50.2 fL 35.1-43.9 [facility] Erythrocyte distribution width (RBC) [Ratio] 14.0 % 11.6-14.6 [facility] Immature granulocytes/100 WBC (Bld) 0.200 % 0.0-0.9 [facility] Comment on above: IG% - Immature Granu locytes (promyelocytes, myelocytes and metamyelocytes) > 1% indicates that a LEFT SHIFT is Present. MCH (RBC) [Entitic mass] 30.9 pg 27.0-32.0 [facility] Nucleated RBC/100 WBC (Bld) [Ratio] 0 % 0-5 [facility] MCHC Auto (RBC) [Mass/Vol]Or dered By: Dr. Moise on 07-14-2022 MCHC (RBC) [Mass/Vol] 31.6 g/dL 32-36 [facility] No Panel InformationOrdered By: Dr. Moise on 07-14-2022 Estimated Creatinine Clearance Calc 62.58 ml/min [facility] Estimated GFR (MDRD) Amer 73 mL/min >60 [facility] Comment on above: GFR Calc Estimated GFR (MDRD) Non-Af Amer 61 mL/min >60 [facility] Comment on above: Non- GFR Calc Troponin I High Sensitivity 73 pg/mL 3.0-78.0 [facility] Comment on above: Please Note: New Taryn t Units and Gender Specific Reference Ranges. For more information see Policy Stat Procedure [place] High Sensitivity Troponin (TNIH) and attachments. Platelets bldOrdered By: Dr. Moise on 07-14-2022 Platelets (Bld) [#/Vol] 238 10*3/uL 150-450 [facility] Serum or plasma calcium stacie urement (mass/volume)Ordered By: Dr. Moise on 07-14-2022 Calcium [Mass/Vol] 9.8 mg/dL 8.5-10.1 [facility] Serum or plasma creatinine m easurement (mass/volume)Ordered By: Dr. Moise on 07-14-2022 Creatinine [Mass/Vol] 1.28 mg/dL 0.70-1.30 [facility] Comment on above: The validity of the calculated GFR & GFRAA in patients over 70 years has not been determined. Clinical correlation is essential. Serum or plasma urea nitroge n measurement (mass/volume)Ordered By: Dr. Moise on 07-14-2022 Urea nitrogen [Mass/Vol] 22 mg/dL 7-18 [facility] Thin prep Papanicolaou smear with manual screeningOrdered By: Dr. Moise on 07-14-2022 Thin prep Papanicolaou smear with manual screening 5 5-15 [facility] Vital Signs Date Time Vital Sign Value Performing Clinician Facility 01-05-2025 07:24-0400 Body mass index (BMI) [Ratio] 36.7 kg/m2 No Primary Care Physician [facility] 01-05-2025 07:24-0400 Body weight 116.11 kg No Primary Care Physician [facility] 01-05-2025 07:24-0400 Diastolic blood pressure 68 mm[Hg] No Primary Care Physician [facility] 01-05-2025 07:24-0400 Heart rate 98 /min No Primary Care Physician [facility] 01-05-2025 07:24-0400 Respiratory rate 18 /min No Primary Care Physician [facility] 01-05-2025 07:24-0400 SaO2% (BldA) [Mass fraction] 100 % No Primary Care Physician [facility] 01-05-2025 07:24-0400 Systolic blood pressure 105 mm[Hg] No Primary Care Physician [facility] 12-28-2024 09:43-0400 Heart rate 85 /min No Primary Care Physician [facility] 12-28-2024 09:42-0400 Body temperature 98.1 [degF] No Primary Care Physician [facility] 12-28-2024 09:42-0400 Diastolic blood pressure 90 mm[Hg] No Primary Care Physician [facility] 12-28-2024 09:42-0400 Respiratory rate 14 /min No Primary Care Physician [facility] 12-28-2024 09:42-0400 SaO2% (BldA) [Mass fraction] 98 % No Primary Care Physician [facility] 12-28-2024 09:42-0400 Systolic blood pressure 133 mm[Hg] No Primary Care Physician [facility] 12-27-2024 05:06-0400 Body mass index (BMI) [Ratio] 37.6 kg/m2 No Primary Care Physician [facility] 12-27-2024 05:06-0400 Body weight 119.4 kg No Primary Care Physician [facility] 12-25-2024 11:02-0400 Body height 177.8 cm No Primary Care Physician [facility] 12-24-2024 19:42-0400 Body temperature 98.1 [degF] No Primary Care Physician [facility] 12-24-2024 19:42-0400 Diastolic blood pressure 100 mm[Hg] No Primary Care Physician [facility] 12-24-2024 19:42-0400 Heart rate 122 /min No Primary Care Physician [facility] 12-24-2024 19:42-0400 Respiratory rate 16 /min No Primary Care Physician [facility] 12-24-2024 19:42-0400 SaO2% (BldA) [Mass fraction] 100 % No Primary Care Physician [facility] 12-24-2024 19:42-0400 Systolic blood pressure 141 mm[Hg] No Primary Care Physician [facility] 12-24-2024 16:41-0400 Body height 177.8 cm No Primary Care Physician [facility] 12-24-2024 16:41-0400 Body mass index (BMI) [Ratio] 38.8 kg/m2 No Primary Care Physician [facility] 12-24-2024 16:41-0400 Body weight 122.74 kg No Primary Care Physician [facility] 07-30-2022 09:37-0400 Body height 177.[address] Marques Moise Work Phone: 3(419)458-231324 [place] [address] 07-30-2022 09:37-0400 Body mass index (BMI) [Ratio] 36.7 kg/m2 Dr. Marques Moise Work Phone: 3(127)784-626724 [place] [address] 07-30-2022 09:37-0400 Body weight 116.[address] Marques Moise Work Phone: 1(487)909-677324 [place] [address] 07-30-2022 09:37-0400 Diastolic blood pressure 79 mm[Hg] Dr. Marques Moise Work Phone: 5(265)630-626224 [place] [address] 07-30-2022 09:37-0400 Heart rate 71 /min Dr. Marques Moise Work Phone: 5(093)390-250224 [place] [address] 07-30-2022 09:37-0400 Respiratory rate 18 /min Dr. Marques Moise Work Phone: 1(589)093-693024 [place] [address] 07-30-2022 09:37-0400 Systolic blood pressure 114 mm[Hg] Dr. Marques Moise Work Phone: [facility] 07-16-2022 15:44-0400 Body temperature 97.5 [degF] Dr. Marques Moise Work Phone: 4(378)997-611724 [place] [address] 07-16-2022 15:44-0400 Diastolic blood pressure 90 mm[Hg] Dr. Marques Moise Work Phone: 4(525)638-395424 [place] [address] 07-16-2022 15:44-0400 Heart rate 77 /min Dr. Marques Moise Work Phone: 2(350)532-945824 [place] [address] 07-16-2022 15:44-0400 Respiratory rate 18 /min Dr. Marques Moise Work Phone: [facility] 07-16-2022 15:44-0400 SaO2% (BldA) [Mass fraction] 97 % Dr. Marques Moise Work Phone: [facility] 07-16-2022 15:44-0400 Systolic blood pressure 131 mm[Hg] Dr. Marques Moise Work Phone: [facility] 07-16-2022 06:00-0400 Body mass index (BMI) [Ratio] 39.6 kg/m2 Dr. Marques Moise Work Phone: [facility] 07-16-2022 06:00-0400 Body weight 125.[address] Marques Moise Work Phone: [facility] 07-15-2022 12:01-0400 Body height 177.[address] Marques Moise Work Phone: [facility] 07-14-2022 19:55-0400 Body temperature 98.3 [degF] [facility] 07-14-2022 19:55-0400 Diastolic blood pressure 90 mm[Hg] [facility] 07-14-2022 19:55-0400 Heart rate 77 /min [facility] 07-14-2022 19:55-0400 Respiratory rate 18 /min [facility] 07-14-2022 19:55-0400 SaO2% (BldA) [Mass fraction] 98 % [facility] 07-14-2022 19:55-0400 Systolic blood pressure 160 mm[Hg] [facility] 07-14-2022 15:25-0400 Body height 177.8 cm [facility] 07-14-2022 15:25-0400 Body mass index (BMI) [Ratio] 42.6 kg/m2 [facility] 07-14-2022 15:25-0400 Body weight 134.74 kg [facility] 07-14-2022 14:55-0400 Body temperature 98.01 [degF] Michelle Figueroa PA-C Work Phone: [facility] 07-14-2022 14:55-0400 Body weight 134.72 kg Michelel Athy PA-C Work Phone: [facility] 07-14-2022 14:55-0400 Diastolic blood pressure 98 mm[Hg] Michelle Athy PA-C Work Phone: [facility] 07-14-2022 14:55-0400 Heart rate 92 /min Michelle Athy PA-C Work Phone: [facility] 07-14-2022 14:55-0400 Respiratory rate 18 /min Michelle Athy PA-C Work Phone: [facility] 07-14-2022 14:55-0400 SaO2% (BldA) [Mass fraction] 97 % Michelle Athy PA-C Work Phone: [facility] 07-14-2022 14:55-0400 Systolic blood pressure 138 mm[Hg] Michelle Athy PA-C Work Phone: [facility] Encounters Encounter Date Encounter Type Care Provider Facility Start: 01-31-2025 ambulatory Joseph Johnson Facility :[facility] Start: 2025 End: 2025 Emergency department patient visit No Primary Care Physician Facility:[facility] Start: 01-27-2025 End: 01-27-2025 Emergency department patient visit [facility] Facility:[facility] Start: 01-05-2025 Patient encounter procedure Jessika White NP-C -Laboratory Work Phone: Start: 01-05-2025 ambulatory No Primary Car e Physician Facility:[facility] Start: 01-05-2025 End: 01-05-2025 Patient encounter procedure Jessika ALLISON -[facility] Work Phone: Start: 01-05-2025 End: 01-05-2025 ambulatory No Primary Care Physician -[facility] Start: 12-28-2024 Non-patient / Non-visit Dr. Baudilio Castellanos MD -[facility] Work Phone: Start: 12-27-2024 Non-patient / Non-visit Dr. Baudilio Castellanos MD [facility] Work Phone: Start: 12-27-2024 Non-patient / Non-visit Dr. oJseph Johnson MD -[facility] Start: 12-26-2024 Non-patient / Non-visit Dr. Baudilio Castellanos MD [facility] Work Phone: Start: 12-26-2024 Non-patient / Non-visit Dr. Joseph Johnson MD [facility] Start: 12-26-2024 ambulatory No Primary Car e Physician [place] Start: 12-26-2024 Non-patient / Non-visit Dr. Tim chandra MD [facility] Start: 12-25-2024 Non-patient / Non-visit Dr. Patric yen MD [facility] Start: 12-25-2024 Non-patient / Non-visit Dr. Baudilio Castellanos MD [facility] Work Phone: Start: 12-24-2024 ambulatory No Primary Car e Physician [place] [place] Start: 12-24-2024 End: 12-28-2024 Evaluation and management of inpatient Dr. Abhi Chong DO -[facility] Work Phone: Start: 10-30-2022 Non-patient / Non-visit Dr. Ramírez Work Phone: [facility] Work Phone: Start: 10-29-2022 Non-patient / Non-visit Dr. Ramírez Work Phone: [facility] Start: 10-29-2022 End: 10-29-[address] Marques Moise Work Phone: [facility] Work Phone: Start: 10-29-2022 End: 10-29-[address] Marques Moise Work Phone: [facility] Work Phone: Start: 08-11-2022 Non-patient / Non-visit Dr. Ramírez Work Phone: [facility] Start: 08-07-2022 End: 08-07-[address] Marques Moise Work Phone: [facility] Work Phone: Start: 08-07-2022 End: 08-07-[address] [facility] Start: 08-07-2022 Non-patient / Non-visit Dr. Ramírez Work Phone: [facility] Start: 07-30-2022 End: 07-30-[address] Marques Moise Work Phone: [facility] Start: 07-16-2022 Non-patient / Non-visit Dr. Ramírez Work Phone: [facility] Start: 07-16-2022 Non-patient / Non-visit Dr. Ramírez Work Phone: [facility] Start: 07-15-2022 Non-patient / Non-visit Dr. Ramírez Work Phone: [facility] Start: 07-15-2022 Non-patient / Non-visit Dr. Ramírez Work Phone: [facility] Start: 07-14-2022 End: 07-16-2022 Evaluation and management of inpatient [facility] Start: 07-14-2022 End: 07-14-2022 ambulatory Facility:[facility] Start: 07-14-2022 End: 07-14-2022 Patient encounter procedure Michelle Figueroa PA-C Work Phone: [facility] Comment on above: Peripheral edema (Pr imary [...] Care Activity Detail Author Start: 01-31-2025 Cardioversion [facility] Start: 01-05-2025 End: 01-05-2025 Evaluation of diagnostic study results [facility] Start: 12-28-2024 Patient discharge [facility] Start: 12-26-2024 [facility] Start: 12-25-2024 Partial thromboplastin time, activated [facility] Start: 12-25-2024 Care planning and problem solving actions [facility] Start: 12-25-2024 [facility] Start: 12-25-2024 Complete blood count [facility] Start: 12-24-2024 Care planning and problem solving actions [facility] Start: 12-24-2024 Following clinical pathway protocol [facility] Start: 12-24-2024 Ambulation without limitation [facility] Start: 12-24-2024 Assessment of risk of venous thromboembolism [facility] Start: 12-24-2024 Incentive spirometry [facility] Start: 12-24-2024 Insertion of catheter into peripheral vein [facility] Start: 12-24-2024 Measuring intake and output [facility] Start: 12-24-2024 Oxygen therapy [facility] Start: 12-24-2024 Providing care according to standard [facility] Start: 12-24-2024 Referral to service [facility] Start: 12-24-2024 [facility] Start: 12-24-2024 Verification routine [facility] Start: 12-24-2024 Admission procedure [facility] Start: 12-24-2024 Partial thromboplastin time, activated [facility] Start: 12-24-2024 Prothrombin time [facility] Start: 12-24-2024 End: 12-25-2024 [facility] Start: 12-24-2024 Patient referral to dietitian [facility] Start: 12-24-2024 [facility] Start: 12-12-2022 Influenza vaccination INFLUENZA (Season Ended) [facility] Start: 07-16-2022 Patient discharge [facility] Start: 07-16-2022 Referral to die setter [facility] Start: 07-16-2022 [facility] Start: 07-14-2022 Following clinical pathway protocol [facility] Start: 07-14-2022 Application of elastic bandage [facility] Start: 07-14-2022 Assessment of risk of venous thromboembolism [facility] Start: 07-14-2022 Catheterization of vein [facility] Start: 07-14-2022 Elevation of affected extremity [facility] Start: 07-14-2022 Insertion of catheter into peripheral vein [facility] Start: 07-14-2022 Measuring intake and output [facility] Start: 07-14-2022 Notification of physician [facility] Start: 07-14-2022 Oxygen therapy [facility] Start: 07-14-2022 Patient education [facility] Start: 07-14-2022 Providing care according to standard [facility] Start: 07-14-2022 Provision of activity privileges [facility] Start: 07-14-2022 [facility] Start: 07-14-2022 Verification routine [facility] Start: 07-14-2022 Admission procedure [facility] Start: 07-14-2022 [facility] Start: 04-13-2022 DEPRESSION ASSESSMENT DEPRESSION ASSESSMENT [facility] Start: 01-30-2016 PROSTATE CANCER SCREENING DISCUSSION PROSTATE CANCER SCREENING DISCUSSION [facility] Start: 2011 SHINGRIX VACCINE (1 of 2) SHINGRIX VACCINE (1 of 2) [facility] Start: 2006 COLOGUARD (FIT-DNA) COLOGUARD (FIT-DNA) [facility] Start: 2006 Colonoscopy COLONOSCOPY [facility] Start: 2006 COLORECTAL CANCER SCREENING COLORECTAL CANCER SCREENING [facility] Start: [address] COLONOGRAPHY [facility] Start: 2006 DIABETES SCREEN DIABETES SCREEN [facility] Start: 2006 FECAL OCCULT BLOOD FECAL OCCULT BLOOD [facility] Start: 2006 SIGMOIDOSCOPY SIGMOIDOSCOPY [facility] Start: 01-30-1996 LIPID SCREEN LIPID SCREEN [facility] Start: 01-30-1980 Urine microalbumin profile DTAP,TDAP,TD (1 - Tdap) [facility] Start: 1979 HEPATITIS C SCREENING HEPATITIS C SCREENING [facility] Start: 1979 HIV SCREENING HIV SCREENING [facility] Start: 1960 COVID-19 VACCINE (#1) COVID-19 VACCINE (#1) [facility] Anion gap in Serum o r Plasma [facility] BUN/Creatinine ratio [facility] Calcium [Mass/volume ] in Serum or Plasma [facility] Carbon dioxide, tota l [Moles/volume] in Central venous blood [facility] Creatinine [Mass/vol ume] in Serum or Plasma [facility] Erythrocyte mean corpuscular volume determination [facility] Erythrocyte mean corpuscular volume determination [facility] Ethanol [Mass/volume ] in Serum or Plasma [facility] Glucose [Mass/volume ] in Serum or Plasma [facility] Hematocrit [Volume Fraction] of Blood [facility] Hematocrit [Volume Fraction] of Blood [facility] Hemoglobin [Mass/vol ume] in Blood [facility] Hemoglobin [Mass/vol ume] in Blood [facility] INR in Blood by Coagulation assay [facility] Leukocytes [#/volume ] in Blood [facility] Leukocytes [#/volume ] in Blood [facility] Mean corpuscular hemoglobin concentration determination [facility] Mean corpuscular hemoglobin concentration determination [facility] Mean corpuscular hemoglobin determination [facility] Mean corpuscular hemoglobin determination [facility] Measurement of renal function [facility] Neutrophil count [facility] Neutrophil count [facility] Neutrophil percent differential count [facility] Neutrophil percent differential count [facility] Patient referral [facility] Work Phone: Platelets [#/volume] in Blood [facility] Platelets [#/volume] in Blood [facility] Potassium measurement [facility] Red blood cell count [facility] Red blood cell count [facility] Red cell distributio n width determination [facility] Red cell distributio n width determination [facility] Serum chloride measurement [facility] Sodium measurement [facility] Troponin T.cardiac [Mass/volume] in Serum or Plasma by High sensitivity method [facility] Urea nitrogen [Mass/volume] in Serum or Plasma [facility] Heart limited [facility] Payers Date Payer Category Payer Self-pay [id number] 2024 Self-pay Unknown [id number] 2.16.8 [id number] Unknown [id number] 2.16.8 [id number] Unknown [id number] 2.16.8 [id number] Unknown [id number] 2.16.8 [id number] Unknown [id number] 2.16.8 [id number] Unknown [id number] 2.16.8 [id number] Unknown [id number] 2.16.8 [id number] Unknown [id number] 2.16.8 [id number] Unknown [id number] 2.16.8 [id number] Unknown [id number] 2.16.8 [id number] Unknown [id number] 2.16.8 [id number] Unknown [id number] 2.16.8 [id number] Unknown [id number] 2.16.8 [id number] Unknown [id number] 2.16.8 [id number] Unknown [id number] 2.16.8 [id number] Social History Date Type Detail Facility Start: 07-14-2022 End: 07-30-2022 Tobacco smoking status MIIS Unknown if ever smoked [facility] Start: 1960 Sex Assigned At Male [facility] Start: 07-14-2022 End: 12-24-2024 Tobacco smoking status NHIS Ex-smoker [facility] History of tobacco use Current smoker [facility] History of tobacco use Cigarette Smoker [facility] Start: 07-14-2022 Tobacco use and exposure Smokeless tobacco non-user [facility] Start: 07-14-2022 Alcohol intake Not Asked [facility] Start: 1960 Sex Assigned At Not on file [facility] Sex Male [facility] Goals Date Patient Goal Desired Activity /State Functional Status Date Assessment Result Facility 12-28-2024 Functional status Ambulates [facility] Work Phone: 07-16-2022 Functional status Ambulates [facility] Work Phone: Mental Status Date Assessment Result Facility 12-28-2024 Cognitive function Voice/Name [facility] Work Phone: 12-24-2024 Cognitive function Awake;Alert;Appropriat e [facility] Work Phone: 07-16-2022 Cognitive function Voice/Name [facility] Work Phone: 07-14-2022 Cognitive function Level Of Cons ciousness Awake;Alert;Appropriate;Follow s Commands [facility] Work Phone: Clinical Notes 07-14-2022 to 01-05-2025 Note Date & Type Note Facility 01-05-2025 Progress note [facility] 12-28-2024 Discharge summary Note Date/Time December 28, 2024 9:39am [facility] Medical Records Department [address] [place] [address] Instructions for Home/Discharge Instructions 12/28/24 0929 MR#: [id number] Acct: [id number] Name: SCARLETT LANDRY Rep #:[id number] : [...] can be placed): Home, Self Care 12/28/24 09<Electronically signed by Baudilio Castellanos MD>Baudilio Castellanos MD CC: Dr. Abhi Chong, DO; No Primary Care Physician ~ Signed [facility] Work Phone: 1(652) 892-824609-17-2025 Discharge summary Author Baudiliodelgado Castellanos [facility] Note Date/Time December 28, 2024 9:52am [facility] Medical Records Department [address] [facility] [place] [address] Discharge Summary 12/28/24938 MR#: [id number] Acct: [id number] Name: SCARLETT LANDRY Rep #:[id number] : 1960 64 From: Baudilio Mitchell PCP: Care Physician,No Primary Status :ADM IN Location: [place] [address] Providers Date of Admission: 12/24/24 Date of [...] Patient is a 64-year-old male who presented [facility] ED on 12/24/2024 with exertional dyspnea and [...] Cardizem drip. Hold home Coreg and lisinopril. Household Cook consulted. 12/26: 2D echo done reported EF 5%, stage I diastolic dysfunction, moderately dilated LV with severe global systolic dysfunction. Mild global RV systolic dysfunction. Mild biatrial dilatation. 1-2+ MR, 1+ TR. Mild dilated aortic root. Lexiscan stress test reported no reversible perfusion defect, fixed apical defect. Occasional PVCs EF calculated through Cardiolite 20%. 12/27: Discussed with die setter. Continue guideline directed medical therapy as per [...] and carvedilol were discontinued. Advised follow-up with die setter Dr. Joseph Johnson in 7 to 10 days. Home oxygen qualification testordered 2. 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 Troponin 60> 59, 70 EKG showed slow atrial flutter with rate in the 120s with 2:1 conduction. monitoring specialist shows a flutter with variable rate. BNP [...] Jardiance in the past. Advised follow-up with [facility] in 7 to 10 days after [...] % (Auto) 60.7, Lymph % (Auto) 23.6, [place] % (Auto) 12.7 H, Eos % (Auto) [...] Self Care Charges/Coding Visit Charges Inpatient E&M: 99063 Disch Hosp >30min 12/28/24 0952 <Electronically signed by Baudilio Castellanso MD> Cosigner Signature (if applicable): CC: Dr. Joseph Johnson MD; Dr. Baudilio Castellanos MD; No Primary Care Physician~ Signed [facility] Work Phone: 1(735) 740-113209-17-2025 Discharge summary [facility] Medical Records Department [address] [place] [address] Discharge Summary 12/28/24 0939 MR#: [id number] Acct: [id number] Name: SCARLETT LANDRY Rep #:[id number] : 1960 64 From: Baudilio Mitchell PCP: Care Physician,No Primary Status :ADM IN Location: [place] [id number]- [id number] Providers Date of Admission: 12/24/24 Date [...] Patient is a 64-year-old male who presented [facility] ED on 12/24/2024 with exertional dyspnea and [...] Cardizem drip. Hold home Coreg and lisinopril. Household Cook consulted. 12/26: 2D echo done reported EF 5%, stage I diastolic dysfunction, moderately dilated LV with severeglobal systolic dysfunction. Mild global RV systolic dysfunction. Mild biatrial dilatation. 1-2+ MR, 1+ TR. Mild dilated aortic root. Lexiscan stress test reported no reversible perfusion defect, fixed apical defect. Occasional PVCs EF calculated through Cardiolite 20%. 12/27: Discussed with die setter. Continue guideline directed medical therapy as per [...] and carvedilol were discontinued. Advised follow-up with die setter Dr. Joseph Johnson in 7 to 10 days. Home oxygen qualification testordered 2. 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 Troponin 60> 59, 70 EKG showed slow atrial flutter with rate in the 120s with 2:1 conduction. monitoring specialist shows a flutter with variable rate. BNP [...] Jardiance in the past. Advised follow-up with [facility] in 7 to 10 days after [...] % (Auto) 60.7, Lymph % (Auto) 23.6, [place] % (Auto) 12.7 H, Eos % (Auto) [...] Self Care Charges/Coding Visit Charges Inpatient E&M: 35871 Disch Hosp >30min 12/28/24 0952 Cosigner Signature (if applicable): CC: Dr. Joseph Johnson MD; Dr. Baudilio Castellanos MD; No Primary Care Physician~ Signed [facility]09-17-2025 Discharge summary [facility] Medical Records Department [address] [place] [address] Instructions for Home/Discharge Instructions 12/28/24 0929 MR#: [id number] Acct: [id number] Name: SCARLETT LANDRY Rep #:[id number] : 1960 64 From: Baudilio Mitchell PCP: Care Physician,Katie Primary Status :ADM IN Discharge Instructions DC [...] Provider: Baudilio Castellanos Primary Care Provider: Sarah Physician,Katie Primary Consulting Providers: Abhi Chong Discharge Orders/Prescriptions [...] 180 3RF Referrals / Follow Up: Care Physician,Katie Primary [Primary Care Provider] Joseph Johnson MD [Med Staff - Active Staff, Cardiology] - Within 2 Weeks Referral Note: Follow-up in 1 to 2 weeks Disposition Disposition (needs filled in before D/C Order can be placed): Home, Self Care 12/28/24 0939Baudilio Castellanos MD CC: Dr. Abhi Chong, DO; No Primary Care Physician ~ Signed [facility]09-17-2025 [facility] Medical Records Department [address] [place] [address] Discharge Summary 12/28/24 0939 MR#: [id number] Acct: [id number] Name: SCARLETT LANDRY Rep #: [id number] : 1960 64 From: Baudilio Castellanos MD PCP: Care Physician,No Primary Status:ADM IN Location: [place] [address] Providers Date of Admission: 12/24/24 Date of [...] Patient is a 64-year-old male who presented [facility] ED on 12/24/2024 with exertional dyspnea and [...] Cardizem drip. Hold home Coreg and lisinopril. Household Cook consulted. 12/26: 2D echo done reported EF 5%, stage I diastolic dysfunction, moderately dilated LV with severe global systolic dysfunction. Mild global RV systolic dysfunction. Mild biatrial dilatation. 1-2+ MR, 1+ TR. Mild dilated aortic root. Lexiscan stress test reported no reversible perfusion defect, fixed apical defect. Occasional PVCs EF calculated through Cardiolite 20%. 12/27: Discussed with die setter. Continue guideline directed medical therapy as per [...] and carvedilol were discontinued. Advised follow-up with die setter Dr. Joseph Johnson in 7 to 10 days. Home oxygen qualification test ordered 2. CHF exacerbation secondary to tachycardia induced cardiomyopathy in setting of new onset A- fib/flutter, possibly due to untreated DELVIN as below. Troponin 60 > 59, 70 EKG showed slow atrial flutter with rate in the 120s with 2:1 conduction. monitoring specialist shows a flutter with variable rate. BNP [...] Jardiance in the past. Advised follow-up with [facility] in 7 to 10 days after [...] since then. Alcohol le (more content not included)...[facility]-16-2025 Progress note Author Baudilio Castellanos [facility] Note Date/Time December 27, 2024 2:26pm [facility] Medical Records Department [address] [place] [address] Progress Note - Hospitalist 12/27/24 1422 MR#: [id number] Acct: [id number] Name: SCARLETT LANDRY Rep #:[id number] : 1960 64 From: Baudilio Mitchell PCP: Care Physician,No Primary Status :ADM IN Location: [place] [address] Reason for Visit Chief Complaint: Exertional dyspnea [...] % (Auto) 60.7, Lymph % (Auto) 23.6, [place] % (Auto) 12.7 H, Eos % (Auto) [...] Patient is a 64-year-old male who presented [facility] ED on 12/24/2024 with exertional dyspnea and [...] Cardizem drip. Hold home Coreg and lisinopril. Household Cook consulted. 12/26: 2D echo done reported EF 5%, stage I diastolic dysfunction, moderately dilated LV with severe global systolic dysfunction. Mild global RV systolic dysfunction. Mild biatrial dilatation. 1-2+ MR, 1+ TR. Mild dilated aortic root. Lexiscan stress test reported no reversible perfusion defect, fixed apical defect. Occasional PVCs EF calculated through Cardiolite 20%. 12/27: Discussed with die setter. Continue guideline directed medical therapy as per [...] rate in the 120s with 2:1 conduction. monitoring specialist shows a flutter with variable rate. BNP [...] Jardiance in the past. Advised follow-up with [facility] in 7 to 10 days after [...] % (Auto) 60.7, Lymph % (Auto) 23.6, [place] % (Auto) 12.7 H, Eos % (Auto) [...] Calcium 9.7 Charges/Coding Visit Charges Inpatient E&M: 29721 Subs Hosp L2 12/27/24 1426 <Electronically signed by Baudilio Castellanos MD> Cosigner Signature (if applicable): CC: ~ Signed [facility] Work Phone: 1(586) 329-825909-16-2025 Progress note [facility] Medical Records Department [address] [place] [address] Progress Note - Hospitalist 12/27/24 1422 MR#: [id number] Acct: [id number] Name: SCARLETT LANDRY Rep #:[id number] : 1960 64 From: Baudilio Mitchell PCP: Care Physician,No Primary Status :ADM IN Location: [place] [address] Reason for Visit Chief Complaint: Exertional dyspnea [...] % (Auto) 60.7, Lymph % (Auto) 23.6, [place] % (Auto) 12.7 H, Eos % (Auto) [...] Patient is a 64-year-old male who presented [facility] ED on 12/24/2024 with exertional dyspnea and [...] Cardizem drip. Hold home Coreg and lisinopril. Household Cook consulted. 12/26: 2D echo done reported EF 5%, stage I diastolic dysfunction, moderately dilated LV with severeglobal systolic dysfunction. Mild global RV systolic dysfunction. Mild biatrial dilatation. 1-2+ MR, 1+ TR. Mild dilated aortic root. Lexiscan stress test reported no reversible perfusion defect, fixed apical defect. Occasional PVCs EF calculated through Cardiolite 20%. 12/27: Discussed with die setter. Continue guideline directed medical therapy as per [...] rate in the 120s with 2:1 conduction. monitoring specialist shows a flutter with variable rate. BNP [...] Jardiance in the past. Advised follow-up with [facility] in 7 to 10 days after [...] % (Auto) 60.7, Lymph % (Auto) 23.6, [place] % (Auto) 12.7 H, Eos % (Auto) [...] Calcium 9.7 Charges/Coding Visit Charges Inpatient E&M: 34642 Subs Hosp L2 12/27/24 3426 Cosigner Signature (if applicable): CC: ~ Signed [facility]09-16-2025 Progress note Author Joseph Johnson [facility] Note Date/Time December 27, 2024 8:52am [facility] Medical Records Department [address] [place] [address] Progress Note - Cardiology 12/27/24 0745 MR#: [id number] Acct: [id number] Name: SCARLETT LANDRY Rep #:[id number] : 1960 64 From: Joseph Johnson MD PCP: Care Physician,No Primary Status :ADM IN Location: [place] [address] Subjective Subjective Patient reports that his breathing [...] % (Auto) 60.7, Lymph % (Auto) 23.6, [place] % (Auto) 12.7 H, Eos % (Auto) [...] Neut % (Auto)60.7, Lymph % (Auto) 23.6, [place] % (Auto) 12.7 H, Eos % (Auto) [...] 3. Patient should be follow-up in the [facility] office 7 to 10 days [...] remains in atrial fibs. 6. Following attempted tenriism of sinus rhythm and maximally tolerated guideline directed medical therapy for LV dysfunction the patient will be reevaluated with limited echo. 7. Given the patient's left bundle branch block if his EF remains less than 35%he would be a candidate for consideration for FIXED ROUTE OPERATOR?D therapy. 8. Dr. Stewart will be covering the service starting tomorrow. Please give me a call if there is any questions or reconsult Dr. Castro. Charges/Coding Visit Charges Inpatient E&M: 85082 Subs Hosp L3 12/27/24 0852 <Electronically signed by Joseph Johnson MD> Cosigner Signature (if applicable): CC: ~ Signed [facility] Work Phone: 1([phone]) 899-871709-16-2025 Progress note [facility] Medical Records Department [address] [place] [address] Progress Note - Cardiology 12/27/24 0745 MR#: [id number] Acct: [id number] Name: SCARLETT LANDRY Rep #:[id number] : 1960 64 From: Joseph Johnson MD PCP: Care Physician,No Primary Status :ADM IN Location: [place] [address] Subjective Subjective Patient reports that his breathing [...] % (Auto) 60.7, Lymph % (Auto) 23.6, [place] % (Auto) 12.7 H, Eos % (Auto) [...] H, MCH 30.2, MCHC 31.6 L, Plt [id number], MPV 11.0, Immature Gran % (Auto) 0.400, Neut % (Auto)60.7, Lymph % (Auto) 23.6, [place] % (Auto) 12.7 H, Eos % (Auto) [...] 3. Patient should be follow-up in the [facility] office 7 to 10 days [...] remains in atrial fibs. 6. Following attempted tenriism of sinus rhythm and maximally tolerated guideline directed medical therapy for LV dysfunction the patient will be reevaluated with limited echo. 7. Given the patient's left bundle branch block if his EF remains less than 35%he would be a candidate for consideration for FIXED ROUTE OPERATOR?D therapy. 8. Dr. Stewart will be covering the service starting tomorrow. Please give me a call if there is any questions or reconsult Dr. Castro. Charges/Coding Visit Charges Inpatient E&M: 99634 Subs Hosp L3 12/27/24 0852 Cosigner Signature (if applicable): CC: ~ Signed [facility]09-15-2025 Progress note Author Bauidlio Castellanos [facility] Note Date/Time December 26, 2024 12:49pm [facility] Medical Records Department [address] [place] [address] Progress Note - Hospitalist 12/26/24 1243 MR#: [id number] Acct: [id number] Name: SCARLETT LANDRY Rep #:[id number] : 1960 64 From: Baudilio Mitchell PCP: Care Physician,No Primary Status :ADM IN Location: [place] [address] Reason for Visit Chief Complaint: Exertional dyspnea [...] % (Auto) 55.8, Lymph % (Auto) 31.8, [place] % (Auto) 10.5 H, Eos % (Auto) [...] Patient is a 64-year-old male who presented [facility] ED on 12/24/2024 with exertional dyspnea and [...] Cardizem drip. Hold home Coreg and lisinopril. Household Cook consulted. 12/26: 2D echo done reported EF [...] rate in the 120s with 2:1 conduction. monitoring specialist shows a flutter with variable rate. BNP [...] % (Auto) 55.8, Lymph % (Auto) 31.8, [place] % (Auto) 10.5 H, Eos % (Auto) [...] T4 1.30 Charges/Coding Visit Charges Inpatient E&M: 35728 Subs Hosp L2 12/26/24 1249 <Electronically signed by Baudilio Castellanos MD> Cosigner Signature (if applicable): CC: ~ Signed [facility] Work Phone: 1(313) 662-548509-15-2025 Progress note [facility] Medical Records Department [address] [place] [address] Progress Note - Hospitalist 12/26/24 1243 MR#: [id number] Acct: [id number] Name: SCARLETT LANDRY Rep #:[id number] : 1960 64 From: Baudilio Mitchell PCP: Care Physician,No Primary Status :ADM IN Location: [place] [address] Reason for Visit Chief Complaint: Exertional dyspnea [...] % (Auto) 55.8, Lymph % (Auto) 31.8, [place] % (Auto) 10.5 H, Eos % (Auto) [...] Patient is a 64-year-old male who presented [facility] ED on 12/24/2024 with exertional dyspnea and [...] Cardizem drip. Hold home Coreg and lisinopril. Household Cook consulted. 12/26: 2D echo done reported EF [...] rate in the 120s with 2:1 conduction. monitoring specialist shows a flutter with variable rate. BNP [...] % (Auto) 55.8, Lymph % (Auto) 31.8, [place] % (Auto) 10.5 H, Eos % (Auto) [...] T4 1.30 Charges/Coding Visit Charges Inpatient E&M: 54290 Subs Hosp L2 12/26/24 1249 Cosigner Signature (if applicable): CC: ~ Signed [facility]09-15-2025 Progress note Author Joseph Johnson [facility] Note Date/Time December 26, 2024 9:23am [facility] Medical Records Department [address] [place] [address] Progress Note - Cardiology 12/26/24909 MR#: [id number] Acct: [id number] Name: SCARLETT LANDRY Rep #:[id number] : 1960 64 From: Joseph Johnson MD PCP: Care Physician,No Primary Status :ADM IN Location: [place] [address] Subjective Subjective The patient is resting comfortably [...] Output Total 1175 / 1175 1550 / 0 1100 / 1100 Balance -1159.33 / -1156.83 [...] % (Auto) 55.8, Lymph % (Auto) 31.8, [place] % (Auto) 10.5 H, Eos % (Auto) [...] % (Auto) 55.8, Lymph % (Auto) 31.8, [place] % (Auto) 10.5 H, Eos % (Auto) [...] block he would be a candidate for FIXED ROUTE OPERATOR?D therapy pending maximum tolerated guideline directed medical [...] echocardiogram 6 to 12 weeks later. 12/26/24922 <Electronically signed by Joseph Johnson MD> Cosigner Signature (if applicable): CC: ~ Signed [facility] Work Phone: 1(390) 455-141309-15-2025 Progress note [facility] Medical Records Department [address] [place] [address] Progress Note - Cardiology 12/26/24 09 MR#: [id number] Acct: [id number] Name: SCARLETT LANDRY Rep #:[id number] : 1960 64 From: Joseph Johnson MD PCP: Care Physician,No Primary Status :ADM IN Location: [place] [address] Subjective Subjective The patient is resting comfortably [...] % (Auto) 55.8, Lymph % (Auto) 31.8, [place] % (Auto) 10.5 H, Eos % (Auto) [...] % (Auto) 55.8, Lymph % (Auto) 31.8, [place] % (Auto) 10.5 H, Eos % (Auto) [...] block he would be a candidate for FIXED ROUTE OPERATOR?D therapy pending maximum tolerated guideline directed medical [...] echocardiogram 6 to 12 weeks later. 12/26/24 0923 Cosigner Signature (if applicable): CC: ~ Signed [facility]09-14-2025 Consult note Author Patric Colmenares [facility] Note Date/Time December 25, 2024 11:25am [facility] Medical Records Department [address] [place] [address] Consultation - Cardiology 12/25/24 1106 MR#: [id number] Acct: [id number] Name: SCARLETT LANDRY Rep #:[id number] : 1960 64 From: Patric Colmenares MD PCP: Care Physician,No Primary Status :ADM IN Location: [facility] [id number]- 1 Assessment & Plan Assessment/Plan (1) NSTEMI (non-ST [...] with minimal activity for which he presented [facility]. He describes his chest pain as pressure substernal worse with exertion and better with rest. He had a stress test in 2022 showed small area of reversibility in the apex. Cardiology service was consulted for further evaluation. In the ED his troponin found to be elevated at 70. Alcohol level is less than 10.1. He was found to be in atrial flutter. [facility] Medical History Essential hypertension History of ETOH [...] % (Auto) 60.1, Lymph % (Auto) 27.8, [place] % (Auto) 10.6 H, Eos % (Auto) [...] % (Auto) 58.0, Lymph % (Auto) 28.3, [place] % (Auto) 11.9 H, Eos % (Auto) [...] % (Auto) 60.1, Lymph % (Auto) 27.8, [place] % (Auto) 10.6 H, Eos % (Auto) 0.8, Baso % (Auto)0.4, Absolute Neuts (auto) 6.0, Nucleated RBC % 0, PT 15.8 H, INR 1.2, Sodium 141, Potassium 4.6, Chloride 106, Carbon Dioxide 23.4, Anion Gap 12, BUN 27 H, Creatinine 1.37 H, Est GFR (MDRD) Non-Af 58 L, BUN/Creatinine Ratio 19.4, Vpmiwis859 H, Calcium 10.1, Phosphorus 3.6, Magnesium 2.3 H 12/25/24 02:45: WBC 10.8, RBC 4.84, Hgb 14.7, Hct 46.4, MCV 95.9 H, MCH 30.4, MCHC 31.7 L, Plt Count 241, MPV 10.8, Immature Gran % (Auto) 0.300, Neut % (Auto)58.0, Lymph % (Auto) 28.3, [place] % (Auto) 11.9 H, Eos % (Auto) 0.9, Baso % (Auto)0.6, Absolute Neuts (auto) 6.3, Nucleated RBC % 0, APTT 40.5 H, Sodium 141, Potassium 4.1, Chloride 104, Carbon Dioxide 23.4, Anion Gap 13, BUN 27 H, Creatinine 1.40 H, Est GFR (MDRD) Non-Af 56 L, BUN/Creatinine Ratio 19.5, [id number] H, Calcium 9.6 12/25/24 09:07: APTT 41.9 H Rhythm: Atrial flutter EKG: Atrial flutter ECHO: EF 10-15% Stress Test: Small area of reversibility in the apex Radiography Diagnostic Testing: Radiology Impression Chest X-Ray 12/24/24 17:55 IMPRESSION: Stable cardiomegaly with mild pulmonary vascular congestion. Reading Location: [facility] Risk Score for UA/STEMI Assesmment (YES [...] applicable): CC: No Primary Care Physician~ Signed [facility] Work Phone: 1([phone]) 212-904709-14-2025 Consult note [facility] Medical Records Department [address] [place] [address] Consultation - Cardiology 12/25/24 1106 MR#: [id number] Acct: [id number] Name: SCARLETT LANDRY Rep #:[id number] : 1960 64 From: Patric Colmenares MD PCP: Care Physician,No Primary Status :ADM IN Location: [place] [address] Assessment & Plan Assessment/Plan (1) NSTEMI (non-ST [...] with minimal activity for which he presented [facility]. He describes his chest pain as [...] was found to be in atrial flutter. [facility] Medical History Essential hypertension History of ETOH [...] % (Auto) 60.1, Lymph % (Auto) 27.8, [place] % (Auto) 10.6 H, Eos % (Auto) [...] L, BUN/Creatinine Ratio 19.4, Glucose 109 H, Gejuldp25.1, Phosphorus 3.6, Magnesium 2.3 H, Troponin T [...] Neut% (Auto) 58.0, Lymph % (Auto) 28.3, [place] % (Auto) 11.9 H, Eos % (Auto) [...] % (Auto) 60.1, Lymph % (Auto) 27.8, [place] % (Auto) 10.6 H, Eos % (Auto) 0.8, Baso % (Auto)0.4, Absolute Neuts (auto) 6.0, Nucleated RBC % 0, PT 15.8 H, INR 1.2, Sodium 141, Potassium 4.6, Chloride 106, Carbon Dioxide 23.4, Anion Gap 12, BUN 27 H, Creatinine 1.37 H, Est GFR (MDRD) Non-Af 58 L, BUN/Creatinine Ratio 19.4, [id number] H, Calcium 10.1, Phosphorus 3.6, Magnesium 2.3 H 12/25/24 02:45: WBC 10.8, RBC 4.84, Hgb 14.7, Hct 46.4, MCV 95.9 H, MCH 30.4, MCHC 31.7 L, Plt Count 241, MPV 10.8, Immature Gran % (Auto) 0.300, Neut % (Auto)58.0, Lymph % (Auto) 28.3, [place] % (Auto)11.9 H, Eos % (Auto) 0.9, Baso % (Auto)0.6, Absolute Neuts (auto) 6.3, Nucleated RBC % 0, APTT 40.5H, Sodium 141, Potassium 4.1, Chloride 104, Carbon Dioxide 23.4, Anion Gap 13, BUN 27 H, Creatinine1.40 H, Est GFR (MDRD) Non-Af 56 L, BUN/Creatinine Ratio 19.5, Qqgajxz969 H, Calcium 9.6 12/25/24 09:07: APTT 41.9 H Rhythm: Atrial flutter EKG: Atrial flutter ECHO: EF 10-15% Stress Test: Small area of reversibility in the apex Radiography Diagnostic Testing: Radiology Impression Chest X-Ray 12/24/24 17:55 IMPRESSION: Stable cardiomegaly with mild pulmonary vascular congestion. Reading Location: [facility] Risk Score for UA/STEMI Assesmment (YES [...] applicable): CC: No Primary Care Physician~ Signed [facility]09-14-2025 Progress note Author Baudilio Castellanos [facility] Note Date/Time December 25, 2024 9:17am [facility] Medical Records Department [address] [place] [address] Progress Note - Hospitalist 12/25/24 0752 MR#: [id number] Acct: [id number] Name: GRISSCARLETTHUSAM SANTORO Rep #:[id number] : 1960 64 From: Baudilio Mitchell PCP: Care Physician,No Primary Status :ADM IN Location: [place] [address] Reason for Visit Chief Complaint: Exertional dyspnea [...] % (Auto) 60.1, Lymph % (Auto) 27.8, [place] % (Auto) 10.6 H, Eos % (Auto) [...] % (Auto) 58.0, Lymph % (Auto) 28.3, [place] % (Auto) 11.9 H, Eos % (Auto) [...] with mild pulmonary vascular congestion. Reading Location: [facility] Physical Exam Narrative Seen and examined Patient [...] Patient is a 64-year-old male who presented [facility] ED on 12/24/2024 with exertional dyspnea and [...] Cardizem drip. Hold home Coreg and lisinopril. Household Cook consulted. 2. 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 Troponin 60> 59, 70 EKG showed slow atrial flutter with rate in the 120s with 2:1 conduction. monitoring specialist shows a flutter with variable rate. BNP [...] Home, TBD Charges/Coding Visit Charges Inpatient E&M: 15634 Subs Hosp L3 12/25/2417 <Electronically signed by Baudilio Castellanos MD> Cosigner Signature (if applicable): CC: ~ Signed [facility] Work Phone: 1([phone]) 834-478909-14-2025 Progress note [facility] Medical Records Department [address] [facility] [place] [address] Progress Note - Hospitalist 12/25/24 0752 MR#: [id number] Acct: [id number] Name: SCARLETT LANDRY Rep #:[id number] : 1960 64 From: Baudilio Mitchell PCP: Care Physician,No Primary Status :ADM IN Location: [place] [address] Reason for Visit Chief Complaint: Exertional dyspnea [...] % (Auto) 60.1, Lymph % (Auto) 27.8, [place] % (Auto) 10.6 H, Eos % (Auto) [...] L, BUN/Creatinine Ratio 19.4, Glucose 109 H, Gsvfrpw82.1, Phosphorus 3.6, Magnesium 2.3 H, Troponin T [...] Neut% (Auto) 58.0, Lymph % (Auto) 28.3, [place] % (Auto) 11.9 H, Eos % (Auto) [...] with mild pulmonary vascular congestion. Reading Location: [facility] Physical Exam Narrative Seen and examined Patient [...] Patient is a 64-year-old male who presented [facility] ED on 12/24/2024 with exertional dyspnea and [...] Cardizem drip. Hold home Coreg and lisinopril. Household Cook consulted. 2. 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 Troponin 60> 59, 70 EKG showed slow atrial flutter with rate in the 120s with 2:1 conduction. monitoring specialist shows a flutter with variable rate. BNP [...] Home, TBD Charges/Coding Visit Charges Inpatient E&M: 83456 Subs Hosp L3 12/25/24 0917 Cosigner Signature (if applicable): CC: ~ Signed [facility]09-13-2025 History and physical note Author Abhi Chong [facility] Note Date/Time December 24, 2024 9:00pm [facility] Medical Records Department [address] [place] [address] H&P Exam - Hospitalist 12/24/241929 MR#: [id number] Acct: [id number] Name: SCARLETT LANDRY Rep #:[id number] : 1960 64 From: Abhi sorto DO PCP: Care Physician,No Primary Status :ADM IN Location: [facility] [id number]- [id number] HPI - General General Date of Admission: 12/24/24 Date of Service: 12/24/24 Chief Complaint: Exertional dyspnea and lower extremity swelling HPI Narrative SCARLETT LANDRY, is a 64 M who presented to [facility] ED on 12/24/2024 with exertional dyspnea and [...] currently. Will be admitted for further management. [facility] Medical History Essential hypertension History of ETOH [...] % (Auto) 60.1, Lymph % (Auto) 27.8, [place] % (Auto) 10.6 H, Eos % (Auto) [...] with mild pulmonary vascular congestion. Reading Location: [facility] Assessment & Plan Assessment/Plan (1) Acute exacerbation of CHF (congestive heart failure): (2) Atrial flutter with rapid ventricular response: PLAN: Plan Patient is a 64-year-old male who presented [facility] ED on 12/24/2024 with exertional dyspnea and [...] 81 minutes. Charges/Coding Visit Charges Inpatient E&M: 78283 Init Hosp L3 12/24/24 2100 <Electronically signed by Abhi Chong DO> Cosigner Signature (if applicable): CC: Dr. Abhi Chong DO; No Primary Care Physician~ Signed [facility] Work Phone: [phone]) [phone] Discharge summary Author Yuniel Hoffman [facility] Note Date/Time December 24, 2024 7:[address] [place] [address] Health System Medical Records Department [address] [place] [address] Emergency Department Summary 12/24/24 MR#: [id number] Acct: [id number] Name: SCARLETT LANDRY Rep #:[id number] : [...] Negative for Marfan's Syndrome or Family History [facility] Medical History Essential hypertension History of ETOH [...] % (Auto) 60.1 Lymph % (Auto) 27.8 [place] % (Auto) 10.6 H Eos % (Auto) [...] with mild pulmonary vascular congestion. Reading Location: [facility] EKG Initial EKG: Attestation: I personally reviewed and interpreted this EKG as follows: Interpretation: - (Wide-complex tachycardia. Rate is 123. This may represent an atypical atrial flutter with 2-1 block. There is evidence of left bundle branch block. QRS durations 144 ms. QRS duration 432 ms. [place] is normal.) Management Discussion w/another healthcare provider: Hospitalist (Dr. Chong the admitting hospitalist was made aware where patient's history physical and discussion with cardiology. Full admit PCU) and Healthcare Administrative Assistant (Spoke with die setter on-call Dr. Colmenares. He was informed of [...] treatment for ACS and CHF), Discussing w/Patient&/or Family/Headliner Installer, Discussing w/Consultants (Cardiology and hospitalist) and Arranging Admission or Transfer Discharge Plan Dx/Rx/DC Orders Clinical Impression: ACS (acute coronary syndrome), Essential hypertension, Acute exacerbation of CHF (congestive heart failure), Sinus tachycardia, Adult BMI 38.0-38.9 kg/sq m Disposition Disposition: [facility] What to do if you have Problems For any increased pain, shortness of breath, bleeding, nausea or vomiting, chestpain, or any unexpected problems, contact your Primary Care Provider. Call [facility] ([phone]) or report to the closest Emergency Room. Call 911 if necessary. 12/24/241931 <Electronically signed by Yuniel Hoffman MD> Cosigner Signature (if applicable): CC: No Primary Care Physician ~ Signed [facility] Work Phone: 1(804) 216-390809-13-2025 Evaluation note* Diagnosis Onset Date Resolution Status [...] Essential hypertension chronic Se ptember 2024 7:31pm [facility] Work Phone: 1(165) 654-209609-13-2025 Evaluation note* Diagnosis Onset Date Resolution Status [...] 9:56am Essential hypertension chronic Se pt2024 9:56am [employer] Work Phone: 1(238) 338-615909-13-2025 History and physical note [facility] Medical Records Department [address] [place] [address] H&P Exam - Hospitalist 12/24/24 193 MR#: [id number] Acct: [id number] Name: SCARLETT LANDRY Rep #:[id number] : 1960 64 From: bAhi sorto DO PCP: Care Physician,No Primary Status :ADM IN Location: [place] [id number]- [id number] HPI - General General Date of Admission: 12/24/24 Date of Service: 12/24/24 Chief Complaint: Exertional dyspnea and lower extremity swelling HPI Narrative SCARLETT LANDRY, is a 64 M who presented to [facility] ED on 12/24/2024 with exertional dyspnea and [...] currently. Will be admitted for further management. [facility] Medical History Essential hypertension History of ETOH [...] % (Auto) 60.1, Lymph % (Auto) 27.8, [place] % (Auto) 10.6 H, Eos % (Auto) [...] with mild pulmonary vascular congestion. Reading Location: [facility] Assessment & Plan Assessment/Plan (1) Acute exacerbation of CHF (congestive heart failure): (2) Atrial flutter with rapid ventricular response: PLAN: Plan Patient is a 64-year-old male who presented [facility] ED on 12/24/2024 with exertional dyspnea and [...] 81 minutes. Charges/Coding Visit Charges Inpatient E&M: 64280 Init Hosp L3 12/24/24 2100 Cosigner Signature (if applicable): CC: Dr. Abhi Chong, DO; No Primary Care Physician~ Signed [facility]09-13-2025 Discharge summary [facility] Medical Records Department [address] [place] [address] Emergency Department Summary 12/24/24 MR#: [id number] Acct: [id number] Name: SCARLETT LANDRY Rep #:[id number] : [...] % (Auto) 60.1 Lymph % (Auto) 27.8 [place] % (Auto) 10.6 H Eos % (Auto) [...] with mild pulmonary vascular congestion. Reading Location: [facility] EKG Initial EKG: Attestation: I personally reviewed and interpreted this EKG as follows: Interpretation: - (Wide-complex tachycardia. Rate is 123. This may represent an atypical atrial flutter with 2-1 block. There is evidence of left bundle branch block. QRS durations 144 ms. QRS duration 432 ms. [place] is normal.) Management Discussion w/another healthcare provider: Hospitalist (Dr. Chong the admitting hospitalist was made aware where patient's history physical and discussion with cardiology. Full admit PCU) and Healthcare Administrative Assistant (Spoke with die setter on-call Dr. Colmenares. He was informed of [...] treatment for ACS and CHF), Discussing w/Patient&/or Family/Headliner Installer, Discussing w/Consultants (Cardiology and hospitalist) and Arranging Admission or Transfer Discharge Plan Dx/Rx/DC Orders Clinical Impression: ACS (acute coronary syndrome), Essential hypertension, Acute exacerbation of CHF (congestive heart failure), Sinus tachycardia, Adult BMI 38.0-38.9 kg/sq m Disposition Disposition: [facility] What to do if you have Problems For any increased pain, shortness of breath, bleeding, nausea or vomiting, chestpain, or any unexpected problems, contact your Primary Care Provider. Call [facility] ([phone]) or report tothe closest Emergency Room. Call 911 if necessary. 12/24/241931 Cosigner Signature (if applicable): CC: No Primary Care Physician ~ Signed [facility]09-13-2025 Radiology Diagnostic study note [facility] Imaging Services [address] [place] [address] Chest PA and Lateral MR#: [id number] Acct: [id number] Name: SCARLETT LANDRY Rep #: [id number] : 1960 M 64 From: Dylon Trent MD PCP: Care Physician,No Primary Status: REG ER Study:Chest PA and Lateral Date of Exam: 12/24/24 Exam# [id number] Ordering Dr: Gabriella Hoffman MD PROCEDURE: CHEST [...] with mild pulmonary vascular congestion. Reading Location: [facility] CC: Dr. Yuniel Hoffman MD; No Primary Care Physician ~ Braid Cutter: Signed [facility]09-13-2025 Discharge summary Author Yuniel Hoffman [facility] Note Date/Time December 24, 2024 [facility] [address] [place] [address] Emergency Department Summary 12/24/24 MR#: [id number] Acct: [id number] Name: SCARLETT LANDRY Rep #:[id number] : [...] Negative for Marfan's Syndrome or Family History [facility] Medical History Essential hypertension History of ETOH [...] % (Auto) 60.1 Lymph % (Auto) 27.8 [place] % (Auto) 10.6 H Eos % (Auto) [...] with mild pulmonary vascular congestion. Reading Location: [facility] EKG Initial EKG: Attestation: I personally reviewed and interpreted this EKG as follows: Interpretation: - (Wide-complex tachycardia. Rate is 123. This may represent an atypical atrial flutter with 2-1 block. There is evidence of left bundle branch block. QRS durations 144 ms. QRS duration 432 ms. [place] is normal.) Management Discussion w/another healthcare provider: Hospitalist (Dr. Chong the admitting hospitalist was made aware where patient's history physical and discussion with cardiology. Full admit PCU) and Healthcare Administrative Assistant (Spoke with die setter on-call Dr. Colmenares. He was informed of [...] treatment for ACS and CHF), Discussing w/Patient&/or Family/Headliner Installer, Discussing w/Consultants (Cardiology and hospitalist) and Arranging Admission or Transfer Discharge Plan Dx/Rx/DC Orders Clinical Impression: ACS (acute coronary syndrome), Essential hypertension, Acute exacerbation of CHF (congestive heart failure), Sinus tachycardia, Adult BMI 38.0-38.9 kg/sq m Disposition Disposition: [facility] What to do if you have Problems For any increased pain, shortness of breath, bleeding, nausea or vomiting, chestpain, or any unexpected problems, contact your Primary Care Provider. Call [facility] ([phone]) or report to the closest Emergency Room. Call 911 if necessary. 12/24/241931 <Electronically signed by Yuniel Hoffman MD> Cosigner Signature (if applicable): CC: No Primary Care Physician ~ Signed [facility] Work Phone: 1(317) 535-495204-05-[address] Ro [facility] July 16, 2022 2:01pm Note Date/Time July 16, 2022 2:01 pm [facility] Medical Records Department [address] [place] [address] Discharge Summary 07/16/22 1359 MR#: [id number] Acct: [id number] Name: SCARLETT LANDRY Rep #:[id number] : 1960 62 From: Khai Ro MD PCP: Care Physician,No Primary Status :ADM IN Location: [facility] [id number]- 1 Providers Date of Admission: 07/14/22 Date [...] % (Auto) 60.9, Lymph % (Auto) 23.7, [place] % (Auto) 12.6 H, Eos % (Auto) [...] Self Care Charges/Coding Visit Charges Inpatient E&M: 39657 Disch Hosp >30min 07/16/22 1401 <Electronically signed by Khai Ro MD> Cosigner Signature (if applicable): CC: Dr. Khai Ro MD; No Primary Care Physician~ Signed [facility] Work Phone: 1(153) 844-157104-05-[address] Ro [facility] July 16, 2022 10:43am Note Date/Time July 16, 2022 7:40 am [facility] Medical Records Department [address] [place] [address] Progress Note - Hospitalist 07/16/22 0740 MR#: [id number] Acct: [id number] Name: SCARLETT LANDRY Rep #:[id number] : 1960 62 From: Khai Ro MD PCP: Care Physician,No Primary Status :ADM IN Location: [place] [address] Reason for Visit Reason for Visit: Diagnoses [...] % (Auto) 60.9, Lymph % (Auto) 23.7, [place] % (Auto) 12.6 H, Eos % (Auto) [...] documentation, 55Minutes Charges/Coding Visit Charges Inpatient E&M: 75896 Subs Hosp 07/16/22 1043 <Electronically signed by Khai Ro MD> Cosigner Signature (if applicable): CC: ~ Signed [facility] Work Phone: 1(554) 574-492804-05-[address] Miller [facility] July 16, 2022 10:16am Note Date/Time July 16, 2022 10:1 4am [facility] Medical Records Department [address] [place] [address] Consultation - Cardiology 07/16/22 1007 MR#: [id number] Acct: [id number] Name: SCARLETT LANDRY Rep #:[id number] : 1960 62 From: Tim Miller MD PCP: Care Physician,No Primary Status :ADM IN Location: [place] [address] Assessment & Plan Assessment/Plan (1) Congestive heart [...] he quit drinking about a month ago. PFS Medical History no medical history Home Medications [...] % (Auto) 60.9, Lymph % (Auto) 23.7, [place] % (Auto) 12.6 H, Eos % (Auto) [...] % (Auto) 60.9, Lymph % (Auto) 23.7, [place] % (Auto) 12.6 H, Eos % (Auto) [...] No PCP Performed By: Emerson Sow RCS 07/16/22 1016 <Electronically signed by Tim Miller MD> Cosigner Signature (if applicable): CC: Dr. Tim Miller MD; Dr. Aren Valderrama MD; No Primary Care Physician~ Signed [facility] Work Phone: 1(349) 273-175004-04-[address] Ro [facility] July 15, 2022 11:53am Note Date/Time July 15, 2022 7:56 am [facility] Medical Records Department [address] [place] [address] Progress Note - Hospitalist 07/15/22 0753 MR#: [id number] Acct: [id number] Name: SCARLETT LANDRY Rep #:[id number] : 1960 62 From: Khai Ro MD PCP: Care Physician,No Primary Status :ADM IN Location: [place] [address] Reason for Visit Reason for Visit: Diagnoses [...] % (Auto) 62.5, Lymph % (Auto) 24.4, [place] % (Auto) 11.4 H, Eos % (Auto) [...] % (Auto) 62.5, Lymph % (Auto) 22.7, [place] % (Auto) 12.1 H, Eos % (Auto) [...] documentation, 55Minutes Charges/Coding Visit Charges Inpatient E&M: 10013 Subs Hosp L3 07/15/22 1153 <Electronically signed by Khai Ro MD> Cosigner Signature (if applicable): CC: ~ Signed [facility] Work Phone: 1(704) 775-167004-03-[address] Moise [facility] Joyce 3rd, 2023 8:56pm Note Date/Time July 14, 2022 5:38 pm [facility] Medical Records Department [address] [place] [address] Emergency Department Summary 07/14/22 MR#: [id number] Acct: [id number] Name: SCARLETT LANDRY Rep #:[id number] : 1960 62 From: Marques Moise DO PCP: Care Physician,No Primary Status :ADM IN Location: [address] History of Present Illness Chief Complaint: [...] % (Auto) 62.5 Lymph % (Auto) 24.4 [place] % (Auto) 11.4 H Eos % (Auto) [...] your Primary Care Provider. Call [facility] ([phone]) or report to the closest Emergency Room. Call 911 if necessary. 07/14/222055 <Electronically signed by Marques Moise DO> Cosigner Signature (if applicable): CC: No Primary Care Physician ~ Signed [facility] Work Phone: 1(443) 915-180004-03-2023 History and physical note Author Dr. 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 [facility] Medical History no medical history no medical [...] % (Auto) 62.5, Lymph % (Auto) 24.4, [place] % (Auto) 11.4 H, Eos % (Auto) [...] modification recommended. Charges/Coding Visit Charges Inpatient E&M: 42614 Init Hosp L3 07/14/222024 <Electronically signed by Aren Valderrama MD> Cosigner Signature (if applicable): CC: Dr. Aren Valderrama MD; No Primary Care Physician~ Signed [facility] Work Phone: 1([phone]) 607-832304-03-[address] Moise [facility] July 14, 2022 8:56pm Note Date/Time July 14, 2022 5:38 pm [facility] Medical Records Department [address] [place] [address] Emergency Department Summary 07/14/22 MR#: [id number] Acct: [id number] Name: SCARLETT LANDRY Rep #:[id number] : 1960 62 From: Marques Moise DO PCP: Care Physician,No Primary Status :ADM IN Location: [place] [address] HPI History of Present Illness Chief Complaint: [...] % (Auto) 62.5 Lymph % (Auto) 24.4 [place] % (Auto) 11.4 H Eos % (Auto) [...] your Primary Care Provider. Call [facility] ([phone]) or report to the closest Emergency Room. Call 911 if necessary. 07/14/222055 <Electronically signed by Marques Moise DO> Cosigner Signature (if applicable): CC: No Primary Care Physician ~ Signed [facility] Work Phone: [phone]) 371-495204-03-2023 NoteHNO ID: [id number] Author: Michelle Figueroa PA-C Service: ? Author Type: Physician Band Leader Type: Progress Notes Filed: 07/14/2022 3:05 PM [...] emergency department. His will take him to [facility]. Vital signs stable here. BP 138/98 Pulse 92 Temp 36.7 ?C (98 ?F) Resp 18 Wt 134.7 kg (297 lb) SpO2 97%[facility] History of Present illness Narrative* Michelle Figueroa [...] emergency department. His will take him to [facility]. Vital signs stable here. BP 138/98 Pulse 92 Temp 36.7 C (98 F) Resp 18 Wt 134.7 kg (297 lb) SpO2 97% documented [facility]* Diagnosis Onset Date Resolution Status Congestive heart failure (CHF) acute Elevated blood pressure reading acute Morbid obesity due to excess calories acute [facility] Work Phone: Evaluation note* Diagnosis Peripheral edema- Primary Edema SOB (shortness of breath) Shortness of breath documented in this encounter [facility] note* Diagnosis Onset Date Resolution Status Congestive heart failure (CHF) acute Elevated blood pressure reading acute History of ETOH abuse acute Morbid obesity due to excess calories acute Hypertension chronic [facility] Work Phone: Evaluation note* Diagnosis Onset Date Resolution Status Congestive heart failure (CHF) acute Morbid obesity due to excess calories chronic Congestive heart failure (CHF) acute Essential hypertension chron ic [facility] Work Phone: Evaluation note* Diagnosis Onset Date Resolution Status Admit Date ACS (acute coronary syndrome) acute December 24, 2024 7:31pm Adult BMI 38.0-38.9 kg/sq m acute December 24, 2024 7:31pm Sinus tachycardia acute Septemb er 2024 7:31pm Acute exacerbation of CHF (congestive heart failure) chronic Septe mber 2024 7:31pm Essential hypertension chronic Se ptember 2024 7:31pm [facility] Work Phone: History and physical note Author Dr. 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 [facility] Medical History no medical history no medical [...] % (Auto) 62.5, Lymph % (Auto) 24.4, [place] % (Auto) 11.4 H, Eos % (Auto) [...] modification recommended. Charges/Coding Visit Charges Inpatient E&M: 11874 Init Hosp L3 07/14/222024 <Electronically signed by Aren Valderrama MD> Cosigner Signature (if applicable): CC: Dr. Aren Valderrama MD; No Primary Care Physician~ Signed [facility] Work Phone: Hospital Discharge instructionsAdditional Instructions Date of Discharge: [facility] Work Phone: Progress note Author Jessika White [facility] Note Date/Time January 05, 2025 10:57am [facility] [address] [place] [address] OFFICE VISIT Date of Service: 01/05/25 MR#: [id number] Acct: [id number] Name: SCARLETT LANDRY Rep #: [id number] : 1960 Provider: ESTEFANY White Age/Sex: 64/M [place] [facility] [place] Status: Signed HPI HPI History of Present Illness Surgical H&P: Yes Details: This is a 64-year-old male who presents the office today for a posthospital follow-up. He presented to [facility] on 07/14/2022 for shortness of breath, [...] Toprol tartrate 50 mg twice daily, and szboivcnynmxir93 mg daily. From a cardiac standpoint, the [...] Oximetry (%) 100 Intake Visit Reasons: S/P [facility] 12/28 Line Tester Required: No Is patient in pain?: No [...] you fallen in the past year?: No [facility] Medical History (Updated 01/05/25 @ 10:53 by Jessika White NP, CHIEF COMPLIANCE OFFICER-C) A-fib NSTEMI (non-ST elevated myocardial infarction) Atrial [...] Negative for SOB at rest or SOB orthopnea\\SOB lying down GI GI: Positive for nausea; [...] will be made. Did briefly discuss an ICD/FIXED ROUTE OPERATOR-D. He will continue to monitor for any [...] updated, as necessary. Follow Up: 4 Months (CHIEF COMPLIANCE OFFICER/PA) EKG (Next week) EKG (Post cardioversion the [...] Cosigner Signature: Date (if applicable) CC: ~ [facility] Work Phone: Reason for referral (narrative)No reason for referral information availableWOhioHealth [facility] Work Phone: Chief Complaint and Reason [...] FAILURE ACUTE HEART FAILURE ACUTE HEART FAILURE [facility] S/P CHF CHF, HTN; CAD CHF, HTN; CAD Reason for Visit Congestive heart gifty lure (CHF) Morbid obesity due to excess calories Congestive heart failure (CHF) Essential hypertension Chief Complaint ACUTE HEART FAILURE ACUTE HEART FAILURE ACUTE HEART FAILURE ACUTE HEART FAILURE [facility] S/P CHF CHF, HTN; CAD CHF, [...] No July 14, 2022 5:06pm Power of Innovation Analyst No July 14 5:06pm Advance Directive Response Recorded Date/ Time Living Will No July 14, 2022 9:39pm Power of Innovation Analyst No July 14 9:39pm Advance Directive Response Recorded Date/ Time Do you have a Healthcare Power of Innovation Analyst? No December 24, 2024 5:02pm Advance Directive Response Recorded Date/ Time Do you have a Healthcare Power of Innovation Analyst? No December 24, 2024 8:45pm Summary Purpose [...] Attending Provider, Other Provid er Active Dr. Tmi Miller MD Other Provider Active Team Status: Inactive Member Role Status Dates Dr. aMrques Moise , DO Emergency Provider Active No Primary Care Physician Primary Care Provider Active Dr. Aren Valderrama MD Admit Provider, Other Provide r Active Dr. Khai Ro MD Attending Provider Active Dr. Tim Miller MD Other Provider Active Team Status: Inactive Member Role Status Dates No Primary Care Physician Primary Care Provider, Refer ring Provider Active Benito Haywood CHIEF COMPLIANCE OFFICER, CHIEF COMPLIANCE OFFICER-C Attending Provider Active Team Status: Active Member Role Status Dates No Primary Care Physician Primary Care Provider Active Benito Haywood CHIEF COMPLIANCE OFFICER, CHIEF COMPLIANCE OFFICER-C Referring Provider, Other Provide r Active Dr. Tim Miller MD Attending Provider Active Team Status: Inactive Member Role Status Dates No Primary Care Physician Primary Care Provider Active Benito Haywood CHIEF COMPLIANCE OFFICER, CHIEF COMPLIANCE OFFICER-C Attending Provider, Referring Pro vider Active Team Status: Active Member Role Status Dates No Primary Care Physician Primary Care Provider Active Dr. Tim Miller MD Attending Provider Active Benito Haywood CHIEF COMPLIANCE OFFICER, CHIEF COMPLIANCE OFFICER-C Referring Provider Active Team Status: Active Member Role Status Dates No Primary Care Physician Primary Care Provider Active Dr. Tim Miller MD Attending Provider Active Team Status: Active Member Role Status Dates No Primary Care Physician Primary Care Provider Active Benito Haywood CHIEF COMPLIANCE OFFICER, CHIEF COMPLIANCE OFFICER-C Attending Provider Active Team Status: Active Member [...] December End: December 28, 2024 Dr. Abhi Chong DO Nurse Practitioner Active Start: December End: [...] December 25, 2024 Dr. Patric Colmenares MD Attending physician Active Start: December [...] DO Nurse Practitioner Active Start: December Dr. Baduilio Castellanos MD Attending physician Active Start: December [...] Activ e Start: January 05, 2025 End: Amber 25th, 2025 No Primary Care Physician Referring Provider Active Start: January 05, 2025 End: January 05, 2025 Jessika White NP, CHIEF COMPLIANCE OFFICER-C Attending physician Active Start: January 05, 2025 End: January 05, 2025 Team Status: Active Member Role/Relationship Status Dates No Primary Care Physician Primary care physician Activ e Start: January 05, 2025 Jessika White NP, CHIEF COMPLIANCE OFFICER-C Attending physician Active Start: January 05, 2025 Jessika White NP, NP-David Referring Provider Active Start: January 05, 2025 [...] or prosecute any alcohol or drug abuse patient.[facility] Reason for Visit (unrecogniz ed section and content) Reason Comments Shortness of Breath With swollen legs an d feet x 2 weeks (unrecognized sect ion and content) No Status Records FoundNo Status Records Found INFORMATION SOURCE (unrecogn ized section and content) DATE CREATED AUTHOR 07/17/2022 [facility] DATE CREATED AUTHOR AUTHOR'S ORGANIZ ATION 01/31/2025 [facility] FOR RECORDS PERTAINING TO PATIENTS WHO ARE [...] BE BASED ON THE PRIMARY CLINICAL RECORDS. [employer] [facility]. provides no warranty or guarantee of the accuracy or completeness of information in this document.
[2025-01-31 17:23] LABS: Anion Gap 12 (5-15); BUN 29 mg/dL (4-19); BUN/Creat Ratio 18.9 RATIO (10-20); Calcium,Total 8.9 mg/dL (7.6-11.0); Carbon Dioxide 25.8 mmol/L (21.0-32.0); Chloride 103 mmol/L (98-108); Glucose 100 mg/dL (70-99); Potassium 3.9 mmol/L (3.3-5.1); Pro- Brain NATRIURETIC PEPTIDE 4852 pg/mL (<=900)
== END | disposition home or self-care (01) ==
PROVIDERS: Referring Provider Nurse Practitioner Gerontology; Visit Provider Nurse Practitioner Gerontology
DX: I50.21 Acute systolic (congestive) heart failure (principal)
CPT/HCPCS: 36415; 80048; 83880

== ENCOUNTER → 2025-02-27 | Outpatient (CLI) | payer SELFPAY ==
[2025-02-27 16:04] LABS: Hematocrit 48.3 % (40-54); Hemoglobin 15.5 g/dL (13.0-16.5); Immature Granulocytes Count 0.040 X10^3/uL (0.0-0.0); Mean Corp Hgb Conc 32.1 g/dL (32-36); Mean Corpuscular Volume 94.2 fL (80-94); Mean Platelet Vol. 11.3 fl (6.2-12.0); NRBC Flagged by Analyzer 0 % (0-5); Platelet Count 269 K/mm3 (150-450); RBC Distribution Width CV 15.5 % (11.6-14.6); RBC Distribution Width SD 53.4 fl (35.1-43.9); Red Blood Count 5.13 M/mm3 (4.6-6.2); White Blood Count 9.5 K/mm3 (4.4-11.0)
[2025-02-27 16:22] LABS: Anion Gap 13 (5-15); BUN 27 mg/dL (4-19); BUN/Creat Ratio 17.2 RATIO (10-20); Calcium,Total 9.8 mg/dL (7.6-11.0); Carbon Dioxide 24.3 mmol/L (21.0-32.0); Chloride 104 mmol/L (98-108); Glucose 96 mg/dL (70-99); Potassium 3.5 mmol/L (3.3-5.1); Pro- Brain NATRIURETIC PEPTIDE 7843 pg/mL (<=900)
== END | disposition home or self-care (01) ==
PROVIDERS: Referring Provider Nurse Practitioner Gerontology; Visit Provider Nurse Practitioner Gerontology
DX: R06.09 Other forms of dyspnea (principal)
CPT/HCPCS: 36415; 80048; 83880; 85025

== ENCOUNTER → 2025-03-06 | Outpatient (CLI) | payer SELFPAY ==
[2025-03-06 12:43] LABS: Anion Gap 13 (5-15); BUN 31 mg/dL (4-19); BUN/Creat Ratio 15.9 RATIO (10-20); Calcium,Total 9.9 mg/dL (7.6-11.0); Carbon Dioxide 26.9 mmol/L (21.0-32.0); Chloride 100 mmol/L (98-108); Glucose 120 mg/dL (70-99); Potassium 4.4 mmol/L (3.3-5.1)
== END | disposition home or self-care (01) ==
PROVIDERS: Referring Provider Nurse Practitioner Gerontology; Visit Provider Nurse Practitioner Gerontology
DX: R06.09 Other forms of dyspnea (principal)
CPT/HCPCS: 36415; 80048

== ENCOUNTER 2025-04-03 10:33 | Day surgery (SDC) | payer SELFPAY ==
[2025-03-31 09:06] VITALS: BMI 36.4
--- NOTE | 2025-03-31 13:19 | PCM.HP.BLA ---
History and Physical History of Present Illness Details: This is a 65-year-old male who presents today for scheduled DCCV. He presented to [facility] on 07/14/2022 for shortness of breath, orthopnea, and lower extremity swelling. His high sensory troponin was noted to be 73 and his BNP was noted to be 896. He was admitted for further evaluation regarding CHF. Echocardiogram on 07/14/2022 showed ejection fraction 15-20% with severe global hypokinesis of left ventricle. He was noted to have mildly enlarged left atrium, mildly enlarged right atrium, mild mitral valve insufficiency, and RVSP of 45 mmHg. It was felt that his reduced ejection fraction was due to long-term alcohol abuse. He was started on new medications and discharged for outpatient follow-up. Patient presented to the emergency room on 12/24/2024 with complaints of chest pain. His EKG during that time demonstrated atrial flutter with a 2-1 block and heart rate of 123 bpm. His troponin was elevated at 60, and BNP 7117. He was admitted to the hospital for further evaluation. He did undergo a echocardiogram on 12/24/2024 which demonstrated ejection fraction of 5%, mild biatrial dilation, mild to moderate mitral valve insufficiency, mild tricuspid valve insufficiency with a pulmonary artery systolic pressure of 39 mmHg, and mildly dilated aortic root, measuring 4.1 cm. He did undergo a stress test on 12/26/2024 to rule out ischemia, this was negative for ischemia, and demonstrated a fixed apical defect likely secondary to apical thinning. He was started on Eliquis 5 mg twice daily. He was discharged home on Eliquis 5 mg twice daily, aspirin 81 mg daily, atorvastatin 40 mg daily, furosemide 40 mg twice daily, losartan 50 mg daily, with Toprol tartrate 50 mg twice daily, and spironolactone 25 mg daily. He had presented to the emergency room on 01/27/2025 with complaints of nosebleed. His Eliquis was held, and he did have a cauterization on 01/30/2025. He presented back to the emergency room on 01/29/2025 with complaints of chest pain. His EKG demonstrated atrial fibrillation with RVR at approximately 120 bpm. Patient's proBNP was elevated at 8000 he was given IV Lasix, and IV Cardizem. He was instructed to increase Lasix to 40 mg twice daily, and instructed to follow-up with cardiology. From a cardiac standpoint, the patient is doing well. He denies any palpitations, chest pain, pressure or heaviness. He does acknowledge SOB with exertion-this is slightly worse. He denies Orthopnea, and PND. He does not have bleeding issues; no blood in urine, stool, or nosebleeds. He does acknowledge fatigue. He denies myalgias, or claudication. He does not have edema, or sudden weight gain. He denies lightheadedness, dizziness, syncopal or near syncopal episodes, and headaches. Intake Vital Signs See EMR Medications ?Medication ?Instructions ?Recorded ?Confirmed ?Type apixaban 5 mg tablet (Eliquis) 5 mg PO BID #180 tabs 01/09/25 02/27/25 Rx amiodarone 200 mg tablet 200 mg PO QDAY #90 tabs 02/27/25 02/27/25 Rx aspirin 81 mg chewable tablet 81 mg PO BREAKFAST #90 tabs 02/27/25 02/27/25 Rx atorvastatin 40 mg tablet 40 mg PO QHS #90 tabs 02/27/25 02/27/25 Rx furosemide 40 mg tablet (Lasix) 40 mg PO BID #180 tabs 02/27/25 02/27/25 Rx losartan 50 mg tablet 50 mg PO DAILY #90 tabs 02/27/25 02/27/25 Rx metoprolol tartrate 50 mg tablet 50 mg PO BID #180 tabs 02/27/25 02/27/25 Rx spironolactone 25 mg tablet 25 mg PO DAILY #90 tabs 02/27/25 02/27/25 Rx Medication Reconciliation completed?: Yes Ejection fraction %: 50 Have you fallen in the past year?: No PFSH See EMR ROS Const Const: Positive for fatigue; Negative for weakness, headache(s) or frequent falls Eyes Eyes: Negative for blurry vision ENT ENT: Negative for headache(s), dizziness or Nosebleed/epistaxis Cardio Chest Pain: No Palpitations: No Edema: None Muscle aches with walking: None Resp Respiratory: Positive for SOB with activity; Negative for SOB at rest or SOB orthopnea\SOB lying down GI GI: Negative nausea, vomiting, heartburn, bright, red blood in stools or black,tarry stools : Negative for hematuria Neuro Neuro: Negative for dizziness, lightheadedness, near syncope, syncope, frequent falls, headache(s), weakness or blurry vision Endo Endo: Positive for fatigue Cardiology Exam Const Appearance: cooperative, healthy appearing, comfortable and no acute distress Nutritional Appearance: well nourished and obese Orientation: alert, awake and oriented x3 Head Head: normal to inspection Ears: hearing grossly normal bilaterally Nose: external nose normal Face and Sinus: face symmetric Mouth: moist mucous membranes Eyes General: appearance normal, both eyes and all related structures Eyelids: eyelids normal EOM: EOM intact bilaterally Neck Neck: normal visual inspection and no JVD Carotids: normal carotid upstroke Chest Chest inspection: normal inspection of the chest, symmetric chest movement and normal respiratory effort; Negative cough Auscultation: Bilateral: Clear to Auscultation Cardio Rhythm: irregularly irregular Heart sounds: S1 normal and S2 normal; Negative rub, gallop or murmur GI GI: normal to inspection and obese Neuro General: patient alert, patient awake, patient oriented x3 and CN's II-XI intact bilaterally Skin Skin: no rashes or lesions noted Extremities Pulses: Normal: Right Posterior Tibial Pulse, Left Posterior Tibial Pulse, Right Radial Pulse and Left Radial Pulse Lower Extremity Edema: None: Bilateral Psych Psychological: normal affect Supplemental Info Supplemental Information Echocardiogram 12/24/2024: Interpretation Summary Moderately dilated left ventricle. Severe global LV systolic dysfunction. Estimated LVEF 5%. Stage I diastolic dysfunction. Mild global right ventricular systolic dysfunction. There is mild biatrial dilatation. Mild-Moderate (1-2+) mitral valve insufficiency. Mild (1+) tricuspid valve insufficiency. Mildly dilated aortic root. Stress test 12/26/2024: Impression: 1. Pharmacologic (Regadenoson) evaluation 2. Peak pharmacologic ECG nondiagnostic secondary to baseline abnormalities. 3. Occasional PVCs noted. 5. No reversible perfusion defects. Fixed apical defect likely secondary to apical thinning. 6. The gated Cardiolite study reports an LVEF of 20%. Echocardiogram from 10/29/2022: Interpretation Summary Mildly dilated left ventricle. Mild concentric left ventricular hypertrophy. The left ventricular ejection fraction is 50 %. The left atrium is severely enlarged. The right atrium is severely enlarged. Echocardiogram 07/30/2022 Interpretation Summary The estimated ejection fraction is 15-20 %. There is severe global hypokinesis of the left ventricle. The left atrium is mildly enlarged. The right atrium is mildly enlarged. Mild (1+) mitral valve insufficiency.? Labs: Assessment and Plan Assessment and Plan A-fib: Status: Acute Qualifiers: Atrial fibrillation type: paroxysmal Qualified Code(s): I48.0 - Paroxysmal atrial fibrillation Plan: Patient has new onset atrial fibrillation. His EKG from 02/27/2025 demonstrates atrial fibrillation, left bundle branch block, heart rate 94 bpm, QT/QTc: 412/515. His echocardiogram on 12/24/2024 demonstrated ejection fraction of 5%, with mild biatrial enlargement. This was reviewed with patient. He was started on Amiodarone at his last office visit in hopes to be cardioverted and regain normal sinus rhythm. Unfortunately, he presented to the emergency room on 01/27/2025 with a nosebleed. This has been cauterized, and he restarted his Eliquis 2 weeks ago. Will proceed with cardioversion the beginning of March. Cardioversion instructions will be given to patient over the phone once date is set. He was encouraged not to miss any doses of Eliquis. He will continue amiodarone 200 mg daily, Eliquis 5 mg twice daily, and metoprolol tartrate 50 mg twice daily. He will continue to monitor for any concerning symptoms of atrial fibrillation.
--- NOTE | 2025-04-03 12:45 | CARDIOVERS_ITS ---
Cardioversion Cardioversion: Patient 65-year-old white male presents to the [facility] recovery area for planned direct-current cardioversion. Patient arrived in the fasting state he has not missed any of his Eliquis doses. He did hold his metoprolol this morning but took his amiodarone. The patient has been fully loaded with amiodarone over the last 4 weeks. He does carry a history of severe global LV dysfunction with a negative ischemic workup. After 6 mg of etomidate administered by Dr. Ryan Branch the patient was confirmed to be appropriately sedated. A single 200 J synchronized shock was delivered. The patient reverted into sinus bradycardia with his chronic left bundle branch block and recovered to a heart rate of 68 bpm with a blood pressure 115/80 at the completion of the monitoring timeframe. The patient awoke without any obvious neurologic deficits. He is scheduled for a repeat ECG in 1 week he will have a repeat echocardiogram done as it has been 12 weeks since he was started on guideline directed medical therapy for his LV dysfunction in May 04, 2025. He will then follow-up in the office 1 week later. 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 The patient's original echo in December 2024 showed an EF of only 5-10%. 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 Procedures Coronary Therapeutic CF Procedures [id number]: [id number] Cardioversion electric ext
--- NOTE | 2025-04-03 12:49 | PRO.PCM_ITS ---
Procedures Pulmonary Pulmonary Procedures /Diagnostic Testin Con Sedation Bedside Procedural Bedside Procedure Information Date of Procedure: 04/03/25 Description of procedure: CONSCIOUS SEDATION REPORT DATE OF SERVICE: April 03, 2025 BRIEF HISTORY OF PRESENT ILLNESS: The patient is a 65-year-old male who presented to [facility] to undergo an elective outpatient cardioversion due to underlying atrial fib rillation. The patient is never previously undergone a cardioversion. He denied any prior anesthetic complications. The patient has never been diagnosed with obstructive sleep apnea. His last surface echocardiogram demonstrated an ejection fraction of approximately 5%. The patient is systemically anticoagulated on Eliquis. PHYSICAL EXAMINATION: VITAL SIGNS: Reviewed and were acceptable. GENERAL: The patient is an obese male, in no apparent distress, speaking in full sentences. HEENT: Normocephalic, atraumatic. Mucous membranes are moist and pink. Good mouth opening noted. Trachea is midline. Good neck mobility. CHEST: S1, S2 irregularly irregular. No murmurs, rubs or gallops were noted. LUNGS: Clear to auscultation bilaterally without appreciable wheezes, rales or rhonchi. ABDOMEN: Soft, nontender, nondistended. Positive bowel sounds. EXTREMITIES: There is no clubbing, cyanosis or edema. ASA Class: II DESCRIPTION OF PROCEDURE: After confirmation of informed consent, the patient's anesthesia plan was reviewed in detail. Etomidate was chosen. Risks and benefits were reviewed and the patient agreed to proceed. At 1214, the patient was given 6 mg of etomida te. The patient achieved an appropriate level of sedation and was given a 200 joule synchronized cardioversion by Dr. Johnson at the bedside. This was successful in achieving normal sinus rhythm. The patient was monitored until 1228, at which time he reached his baseline mental status and function. The patient tolerated the procedure well. COMPLICATIONS: None ESTIMATED BLOOD LOSS: None RECOMMENDATIONS: Okay to recover in usual fashion.
== END 2025-04-03 13:15 | disposition home or self-care (01) ==
PROVIDERS: Referring Provider Internal Medicine Cardiovascular Disease; Visit Provider Internal Medicine Cardiovascular Disease
DX: I48.0 Paroxysmal atrial fibrillation (principal); I50.9 Heart failure, unspecified; Z79.01 Long term (current) use of anticoagulants; Z79.82 Long term (current) use of aspirin; E66.9 Obesity, unspecified; I44.7 Left bundle-branch block, unspecified
CPT/HCPCS: 92960; 93005